=== PATIENT | male | born 1960 | race Hispanic/Latino ===

== ENCOUNTER 2016-09-27 15:41 | Outpatient (CLI) | payer MEDICAID ==
--- NOTE | 2016-09-28 13:41 | Vascular Lab Report ---
Left Lower Extremity Venous Duplex Study: Reason for Exam: Left leg swelling. Comments on the Right: A limited duplex study was done of the proximal veins of the right lower extremity. All veins visualized are freely compressible without evidence of internal echogenicity. Flow is spontaneous and phasic throughout. No evidence of acute or chronic thrombus is seen in any of the vessels visualized. Comments on the Left: All veins visualized are freely compressible without evidence of internal echogenicity. Flow is spontaneous and phasic throughout. No evidence of acute or chronic thrombus is seen in any of the vessels visualized. Soft tissue changes are consistent with edema. Incidental finding of a stent in the proximal left common femoral artery. Impression: No evidence of acute or chronic deep venous thrombosis in the left lower extremity.
== END 2016-09-27 15:42 | disposition home or self-care (01) ==
LOC: VAS 15:41
PROVIDERS: ATTEND Podiatrist Foot Surgery
DX: I82.402 Acute embolism and thrombosis of unspecified deep veins of left lower extremity (principal); R60.0 Localized edema

== ENCOUNTER 2017-07-11 14:14 | Emergency (ER) | payer MEDICAID ==
[2017-07-11 14:42] VITALS: BP 142/74
--- NOTE | 2017-07-11 15:09 | Emergency Department Report ---
Chief Complaint: Chest Pain Stated Complaint: CHEST PAIN/SOB/BACK PAIN Time Seen by Provider: 07/11/17 15:03 - HPI History of Present Illness: Patient with H/O asthma, HTN, DM and intermittent leg swelling presents to ED with c/o right sided CP, SOB, exertional dyspnea and productive cough for the last 3 days; has been using rescue inhaler and nebulizer treatments but they haven't helped; denies H/O COPD and fevers; 1/2 pack/day smoker - ROS Review of Systems: Negative except for those stated in HPI - Exam Vital Signs: Vital Signs 07/11/17 14:38 Temperature 98.3 F Pulse Rate 74 Respiratory 16 Rate Blood Pressure 142/74 O2 Sat by Pulse 93 Oximetry Physical Exam: RRR Mild wheezes bilaterally, decreased breath sounds MSE screening note: Focused history and physical exam performed. Due to findings the following was ordered: EKG, CXR, labs Patient to be seen by provider in Main ED ED Disposition for MSE Condition: Stable
[2017-07-11 15:21] LABS: Hematocrit 45.9 % (35.5-45.6); Hemoglobin 15.5 gm/dl (11.8-15.2); Mean Corpuscular HGB Conc 34 % (32-34); Mean Corpuscular Hemoglobin 32 pg (28-32); Mean Corpuscular Volume 95 fl (84-94); Platelet Count 194 K/mm3 (140-440); Red Blood Count 4.85 M/mm3 (3.65-5.03); Red Cell Distribution Width 14.5 % (13.2-15.2)
[2017-07-11 15:42] LABS: Alanine Aminotransferase 25 units/L (7-56); Albumin 3.9 g/dL (3.9-5); Albumin/Globulin Ratio 1.5 %; Alkaline Phosphatase 92 units/L (35-129); Anion Gap 19 mmol/L; BUN/Creatinine Ratio 20; Blood Urea Nitrogen 16 mg/dL (9-20); Calcium 8.9 mg/dL (8.4-10.2); Carbon Dioxide 20 mmol/L (22-30); Chloride 98.3 mmol/L (98-107); Glucose 113 mg/dL (75-100); Potassium 4.8 mmol/L (3.6-5.0); Sodium 132 mmol/L (137-145); Total Protein 6.5 g/dL (6.3-8.2)
--- NOTE | 2017-07-11 19:49 | XRay Report ---
FINAL REPORT EXAM: XR CHEST ROUTINE 2V HISTORY: right sided CP, SOB TECHNIQUE: upright single view chest PRIORS: Comparison is January 28, 2017 FINDINGS: Cardiac and mediastinal contours are unremarkable. No focal pulmonary infiltrate is identified. No pleural fluid collection seen. Pulmonary vasculature is unremarkable. No change from prior exam IMPRESSION: Negative single-view chest
== END 2017-07-11 20:25 | disposition left against medical advice (07) ==
LOC: ED 14:14
DX: Z53.21 Procedure and treatment not carried out due to patient leaving prior to being seen by health care provider (principal)
CPT/HCPCS: 36415; 71020; 80053; 83880; 84484; 85027; 93005; 93010

== ENCOUNTER 2017-10-31 14:24 | Emergency (ER) | payer MEDICAID ==
[2017-10-31 15:27] VITALS: BP 168/79
[2017-10-31] MEDS ORDERED: NORCO 5/325 PO ONE (20:02)
--- NOTE | 2017-10-31 20:07 | Emergency Department Report ---
HPI - General Chief Complaint: Extremity Injury, Lower Time Seen by Provider: 10/31/17 19:58 - HPI HPI: Pt is a 56 y o male who presents to ED for acute on chronic left foot pain that started 3 days ago. 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 Pt statestoday his pain was unbearable and he was out of his pain medication so he came in to the ED for this concern. He denies any recent trauma,injury to foot. He describes pain as neuropathic pain that is localized to his left foot and no where else. He denies loss of sensation, laceration or bleeding. ED Past Medical Hx - Past Medical History Hx Hypertension: Yes Hx Congestive Heart Failure: No Hx Diabetes: Yes Hx Deep Vein Thrombosis: Yes (LEFT LEG) Hx Arthritis: Yes Hx Kidney Stones: Yes Hx Asthma: No Hx COPD: Yes Additional medical history: Cholesterol - Surgical History Hx Cholecystectomy: Yes Additional Surgical History: bypass, stents, Hernia. 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 - Social History Smoking Status: Current Every Day Smoker Substance Use Type: None - Medications Home Medications: Home Medications Medication Instructions Recorded Confirmed Last Taken Type AtorvaSTATin [Lipitor] 40 mg PO QHS 01/31/17 01/31/17 Unknown History Gabapentin [Neurontin] 800 mg PO TID 01/31/17 01/31/17 Unknown History ALPRAZolam [Xanax TAB] 0.5 mg PO TID #10 tablet 02/03/17 Unknown Rx Aspirin EC [Aspirin Enteric Coated 81 mg PO QDAY #30 tablet. 02/03/17 Unknown Rx TAB] Carvedilol [Coreg] 3.125 mg PO BID #60 tablet 02/03/17 Unknown Rx Furosemide [Lasix TAB] 40 mg PO QDAY #30 tablet 02/03/17 Unknown Rx Lisinopril [Zestril TAB] 5 mg PO BID #30 tablet 02/03/17 Unknown Rx metFORMIN [Glucophage] 500 mg PO BID #60 tablet 02/03/17 Unknown Rx HYDROcodone/APAP 10-325 [[place] 1 each PO Q6H PRN #8 tablet 10/31/17 Unknown Rx 10-325 mg TAB] ED Review of Systems ROS: Stated complaint: SEVERE LEFT FOOT PAIN Other details as noted in HPI Constitutional: denies: chills, fever Eyes: denies: eye pain, eye discharge, vision change ENT: denies: ear pain, throat pain Respiratory: denies: cough, shortness of breath, wheezing Cardiovascular: denies: chest pain, palpitations Endocrine: no symptoms reported Gastrointestinal: denies: abdominal pain, nausea, diarrhea Genitourinary: denies: urgency, dysuria, frequency Musculoskeletal: arthralgia. denies: back pain, joint swelling Skin: denies: rash, lesions Neurological: denies: headache, weakness, paresthesias Psychiatric: denies: anxiety, depression Hematological/Lymphatic: denies: easy bleeding, easy bruising Physical Exam - Physical Exam Vital Signs: Vital Signs 10/31/17 15:25 Temperature 98.7 F Pulse Rate 67 Respiratory 18 Rate Blood Pressure 168/79 O2 Sat by Pulse 93 Oximetry Physical Exam: GENERAL: Alert and oriented x3, no apparent distress, Normal Gait, atraumatic. HEAD: Head is normocephalic and a-traumatic. EYES: Extra ocular muscles are intact. Pupils are equal, round, and reactive to light and accommodation. LUNGS: Symetrical with respiration, No wheezing, no rales or crackles, CTAB. HEART: S1, S2 present, regular rate and rhythm without murmur, no rubs, no gallops. Non tender to palpation EXTREMITIES/MUSCULOSKELETAL: No cyanosis, clubbing, rash, lesions or edema. Full ROM bilaterally. UE/LE Pulses 2+ bilaterally. LE and UE 5+ strength bilaterally, partially or left foot amputated, no erythema, nontender to palpation of the ankle or the foot, no calf tenderness or swelling NEUROLOGIC: The patient is cooperative with no focal neurologic deficits. Normal speech. Normal sensation in bilateral upper and lower extremities, No loss of sensation, SKIN: Warm and dry, No lesions, No ulceration or induration present. ED Course Vital Signs 10/31/17 15:25 Temperature 98.7 F Pulse Rate 67 Respiratory 18 Rate Blood Pressure 168/79 O2 Sat by Pulse 93 Oximetry ED Medical Decision Making - Medical Decision Making 56 y.o male presents with neuropathic left foot pain. ED course: Patient received one [place] tablet in the ED I discussed the patient to keep his appointment with Dr. Sams his neurologist for Tuesday I discussed the patient will give him a couple of pain medication to have sustained to his toes up with his neurologist. Patient is in no acute distress patient is able to ambulate with his walker with no issues. Critical care attestation.: If time is entered above; I have spent that time in minutes in the direct care of this critically ill patient, excluding procedure time. ED Disposition Clinical Impression: Chronic pain in left foot Neuropathy of foot Qualifiers: Laterality: left Qualified Code(s): G57.92 - Unspecified mononeuropathy of left lower limb Disposition: TO HOME OR SELFCARE Is pt being admited?: No Does the pt Need Aspirin: No Condition: Stable Instructions: Diabetic Neuropathy (ED), Arthralgia (ED) Additional Instructions: Follow and keep appt with your Neurologist Prescriptions: HYDROcodone/APAP 10-325 [[place] 10-325 mg TAB] 1 each PO Q6H PRN #8 tablet PRN Reason: Pain, Moderate (4-6) Referrals: PRIMARY CARE, [Primary Care Provider] - 3-5 Days RENETTA BRENNAN MD [Staff Physician] - 3-5 Days Forms: Work/School Release Form(ED) Time of Disposition: 20:06
== END 2017-10-31 21:10 | disposition home or self-care (01) ==
LOC: ED 14:24
DX: G57.92 Unspecified mononeuropathy of left lower limb (principal); G89.29 Other chronic pain; I10 Essential (primary) hypertension; E11.9 Type 2 diabetes mellitus without complications; J44.9 Chronic obstructive pulmonary disease, unspecified; M19.90 Unspecified osteoarthritis, unspecified site; F17.200 Nicotine dependence, unspecified, uncomplicated; Z86.718 Personal history of other venous thrombosis and embolism; Z87.442 Personal history of urinary calculi; Z88.6 Allergy status to analgesic agent; Z89.432 Acquired absence of left foot; Z90.49 Acquired absence of other specified parts of digestive tract; Z95.818 Presence of other cardiac implants and grafts
CPT/HCPCS: 99282

== ENCOUNTER 2018-02-23 12:19 | Emergency (ER) | payer MEDICAID ==
[2018-02-23 12:30] VITALS: BP 125/80
[2018-02-23 15:04] LABS: Bacteria,Urine 1+ /HPF (Negative); Bilirubin,Urine NEG (Negative); Blood,Urine NEG (Negative); Color,Urine Yellow (Yellow); Protein,Urine <15 mg/dL mg/dL (Negative); Urobilinogen,Urine < 2.0 mg/dL (<2.0)
[2018-02-23 15:07] LABS: WBC,Urine < 1.0 /HPF (0.0-6.0)
--- NOTE | 2018-02-23 15:22 | Emergency Department Report ---
ED General Adult HPI - General Chief complaint: Pain General Stated complaint: BACK PAIN Time Seen by Provider: 02/23/18 15:05 Source: patient Mode of arrival: Ambulatory Limitations: No Limitations - History of Present Illness Initial comments: Patient is a 57-year-old male who is complaining of low back pain. Patient states he woke up with neck pain 2 days ago as having difficulty moving. Patient states pain is 8 out of 10 in severity and is aching pain. Patient states some bilateral lower back along the beltline. Patient denies any urinary or bowel dysfunction there is no radiation of pain down his legs patient denies any abdominal pain at this time. - Related Data Home Medications Medication Instructions Recorded Confirmed Last Taken Gabapentin [Neurontin] 800 mg PO TID 01/31/17 11/15/17 11/14/17 Previous Rx's Medication Instructions Recorded Last Taken Type Aspirin EC [Aspirin Enteric Coated 81 mg PO QDAY #30 tablet. 02/03/17 Unknown Rx TAB] Carvedilol [Coreg] 3.125 mg PO BID #60 tablet 02/03/17 11/14/17 Rx Lisinopril [Zestril TAB] 5 mg PO BID #30 tablet 02/03/17 Unknown Rx ALBUTEROL Inhaler [ProAir HFA 2 puff IH QID PRN #1 inhalation 11/17/17 Unknown Rx Inhaler] ALPRAZolam [Xanax TAB] 0.5 mg PO TID PRN #10 tablet 11/17/17 Unknown Rx Acetaminophen [Acetaminophen TAB] 325 mg PO Q4H PRN #30 tablet 11/17/17 Unknown Rx AtorvaSTATin [Lipitor] 40 mg PO QHS #30 11/17/17 11/14/17 Rx Budesonide/Formoterol Fumarate 10.2 gm IH BID #1 hfa.aer.ad 11/17/17 Unknown Rx [Symbicort 160-4.5 Mcg Inhaler] Furosemide [Lasix TAB] 40 mg PO QDAY #30 tablet 11/17/17 Unknown Rx Ipratropium/Albuter (Nf) 2 puff IH BID #1 inha 11/17/17 Unknown Rx [Combivent (Nf)] Potassium Chloride [K-Dur] 20 meq PO BID #60 tablet 11/17/17 Unknown Rx metFORMIN [Glucophage] 500 mg PO BID tablet 11/17/17 Unknown Rx oxyCODONE /ACETAMINOPHEN [Percocet 1 tab PO Q6H PRN #15 tablet 11/17/17 Unknown Rx 5/325 mg] HYDROcodone/APAP 5-325 [[place] 1 each PO Q4HR PRN #10 tablet 02/23/18 Unknown Rx 5/325] methOCARBAMOL [Robaxin TAB] 500 mg PO Q6H PRN #15 tablet 02/23/18 Unknown Rx Allergies Allergy/AdvReac Type Severity Reaction Status Date / Time ketorolac tromethamine Allergy Vomiting Verified 01/31/17 05:38 [From Toradol] tramadol Allergy Vomiting Verified 01/31/17 05:38 ED Review of Systems ROS: Stated complaint: BACK PAIN Other details as noted in HPI Comment: All other systems reviewed and negative ED Past Medical Hx - Past Medical History Hx Hypertension: Yes Hx Congestive Heart Failure: No Hx Diabetes: Yes Hx Deep Vein Thrombosis: Yes (LEFT LEG) Hx Arthritis: Yes Hx Kidney Stones: Yes Hx Asthma: No Hx COPD: Yes Additional medical history: Cholesterol - Surgical History Hx Cholecystectomy: Yes Additional Surgical History: L. leg bypass, L. leg stents, Hernia. 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 - Social History Smoking Status: Current Every Day Smoker - Medications Home Medications: Home Medications Medication Instructions Recorded Confirmed Last Taken Type Gabapentin [Neurontin] 800 mg PO TID 01/31/17 11/15/17 11/14/17 History Aspirin EC [Aspirin Enteric Coated 81 mg PO QDAY #30 tablet. 02/03/17 Unknown Rx TAB] Carvedilol [Coreg] 3.125 mg PO BID #60 tablet 02/03/17 11/15/17 11/14/17 Rx Lisinopril [Zestril TAB] 5 mg PO BID #30 tablet 02/03/17 11/15/17 Unknown Rx ALBUTEROL Inhaler [ProAir HFA 2 puff IH QID PRN #1 inhalation 11/17/17 Unknown Rx Inhaler] ALPRAZolam [Xanax TAB] 0.5 mg PO TID PRN #10 tablet 11/17/17 Unknown Rx Acetaminophen [Acetaminophen TAB] 325 mg PO Q4H PRN #30 tablet 11/17/17 Unknown Rx AtorvaSTATin [Lipitor] 40 mg PO QHS #30 11/17/17 11/15/17 11/14/17 Rx Budesonide/Formoterol Fumarate 10.2 gm IH BID #1 hfa.aer.ad 11/17/17 Unknown Rx [Symbicort 160-4.5 Mcg Inhaler] Furosemide [Lasix TAB] 40 mg PO QDAY #30 tablet 11/17/17 Unknown Rx Ipratropium/Albuter (Nf) 2 puff IH BID #1 inha 11/17/17 Unknown Rx [Combivent (Nf)] Potassium Chloride [K-Dur] 20 meq PO BID #60 tablet 11/17/17 Unknown Rx metFORMIN [Glucophage] 500 mg PO BID tablet 11/17/17 Unknown Rx oxyCODONE /ACETAMINOPHEN [Percocet 1 tab PO Q6H PRN #15 tablet 11/17/17 Unknown Rx 5/325 mg] HYDROcodone/APAP 5-325 [[place] 1 each PO Q4HR PRN #10 tablet 02/23/18 Unknown Rx 5/325] methOCARBAMOL [Robaxin TAB] 500 mg PO Q6H PRN #15 tablet 02/23/18 Unknown Rx ED Physical Exam - General Limitations: No Limitations General appearance: alert, in no apparent distress - Head Head exam: Present: atraumatic, normocephalic - Eye Eye exam: Present: normal appearance - ENT ENT exam: Present: mucous membranes moist - Neck Neck exam: Present: normal inspection - Respiratory Respiratory exam: Present: normal lung sounds bilaterally. Absent: respiratory distress, wheezes, rales, rhonchi - Cardiovascular Cardiovascular Exam: Present: regular rate, normal rhythm. Absent: systolic murmur, diastolic murmur, rubs, gallop - GI/Abdominal GI/Abdominal exam: Present: soft, normal bowel sounds. Absent: distended, tenderness, guarding, rebound - Rectal Rectal exam: Present: deferred - Extremities Exam Extremities exam: Present: normal inspection - Back Exam Back exam: Present: normal inspection - Neurological Exam Neurological exam: Present: alert, oriented X3 - Psychiatric Psychiatric exam: Present: normal affect, normal mood - Skin Skin exam: Present: warm, dry, intact, normal color. Absent: rash ED Course Vital Signs 02/23/18 12:28 Temperature 99.0 F Pulse Rate 80 Respiratory 16 Rate Blood Pressure 125/80 O2 Sat by Pulse 95 Oximetry ED Medical Decision Making - Medical Decision Making Patient will be given meds for symptomatic relief and will be discharged home Critical care attestation.: If time is entered above; I have spent that time in minutes in the direct care of this critically ill patient, excluding procedure time. ED Disposition Clinical Impression: Back strain Qualifiers: Encounter type: initial encounter Qualified Code(s): S39.012A - Strain of muscle, fascia and tendon of lower back, initial encounter Disposition: DC- TO HOME OR SELFCARE Is pt being admited?: No Does the pt Need Aspirin: No Condition: Stable Instructions: Low Back Strain (ED) Referrals: PRIMARY CARE, [Primary Care Provider] - 3-5 Days
== END 2018-02-23 15:31 | disposition home or self-care (01) ==
LOC: ED 12:19
DX: S39.012A Strain of muscle, fascia and tendon of lower back, initial encounter (principal); I10 Essential (primary) hypertension; E11.9 Type 2 diabetes mellitus without complications; M19.90 Unspecified osteoarthritis, unspecified site; J44.9 Chronic obstructive pulmonary disease, unspecified; F17.200 Nicotine dependence, unspecified, uncomplicated; Z86.718 Personal history of other venous thrombosis and embolism; Z79.82 Long term (current) use of aspirin; Z88.6 Allergy status to analgesic agent; X58.XXXA Exposure to other specified factors, initial encounter; Y93.89 Activity, other specified; Y92.89 Other specified places as the place of occurrence of the external cause; Y99.8 Other external cause status
CPT/HCPCS: 81001; 99283

== ENCOUNTER 2018-08-02 15:56 | Inpatient (IN) | payer MEDICAID ==
[2018-08-02 16:40] LABS: Basophils # (Auto) 0.1 K/mm3 (0.0-0.1); Basophils % (Auto) 0.7 % (0.0-1.8); Eosinophils # (Auto) 0.1 K/mm3 (0.0-0.4); Eosinophils % (Auto) 1.3 % (0.0-4.3); Hematocrit 45.8 % (35.5-45.6); Hemoglobin 15.3 gm/dl (11.8-15.2); Lymphocytes # (Auto) 0.5 K/mm3 (1.2-5.4); Lymphocytes % (Auto) 6.7 % (13.4-35.0); Mean Corpuscular HGB Conc 33 % (32-34); Mean Corpuscular Volume 95 fl (84-94); Monocytes # (Auto) 0.7 K/mm3 (0.0-0.8); Monocytes % (Auto) 8.8 % (0.0-7.3); Platelet Count 179 K/mm3 (140-440); Red Blood Count 4.83 M/mm3 (3.65-5.03); Red Cell Distribution Width 14.2 % (13.2-15.2)
--- NOTE | 2018-08-02 16:45 | Emergency Department Report ---
ED Shortness of Breath HPI - General Chief Complaint: Dyspnea/Respdistress Stated Complaint: PAIN FROM WAIST DOWN/BOTH LEGS/ALEXYS Time Seen by Provider: 08/02/18 16:28 Source: patient Mode of arrival: Ambulatory Limitations: No Limitations - History of Present Illness Initial Comments: 57-year-old male presents to ED with complaint of shortness of breath and bilateral lower extremity swelling. Patient states the swelling began 6 days ago. Then began having shortness of breath and chest pressure 4 days ago. Patient has history of COPD, states only uses 2 L of O2 at night as needed. Patient denies any cardiac history, denies history of CHF. Patient denies fever, reports cough productive of white sputum. Patient states swelling present on the lower abdominal wall as well. Reports tightness to bilateral lower extremities. MD Complaint: shortness of breath, chest pain -: days(s) (6) Severity: moderate Consistency: constant Improves With: rest Worsens With: exertion Known History Of: COPD Associated Symptoms: chest pain, cough, sputum production, lower extremity pain, lower abdominal swelling - Related Data Home Oxygen Therapy: Yes Home Oxygen Amount: other (as needed) Home Medications Medication Instructions Recorded Confirmed Last Taken Gabapentin [Neurontin] 800 mg PO TID 01/31/17 11/15/17 11/14/17 Previous Rx's Medication Instructions Recorded Last Taken Type Aspirin EC [Aspirin Enteric Coated 81 mg PO QDAY #30 tablet. 02/03/17 Unknown Rx TAB] Carvedilol [Coreg] 3.125 mg PO BID #60 tablet 02/03/17 11/14/17 Rx Lisinopril [Zestril TAB] 5 mg PO BID #30 tablet 02/03/17 Unknown Rx ALBUTEROL Inhaler (OR & NICU) 2 puff IH QID PRN #1 inhalation 11/17/17 Unknown Rx [ProAir HFA Inhaler] ALPRAZolam [Xanax TAB] 0.5 mg PO TID PRN #10 tablet 11/17/17 Unknown Rx Acetaminophen [Acetaminophen TAB] 325 mg PO Q4H PRN #30 tablet 11/17/17 Unknown Rx AtorvaSTATin [Lipitor] 40 mg PO QHS #30 11/17/17 11/14/17 Rx Budesonide/Formoterol Fumarate 10.2 gm IH BID #1 hfa.aer.ad 11/17/17 Unknown Rx [Symbicort 160-4.5 Mcg Inhaler] Furosemide [Lasix TAB] 40 mg PO QDAY #30 tablet 11/17/17 Unknown Rx Ipratropium/Albuter (Nf) 2 puff IH BID #1 inha 11/17/17 Unknown Rx [Combivent (Nf)] Potassium Chloride [K-Dur] 20 meq PO BID #60 tablet 11/17/17 Unknown Rx metFORMIN [Glucophage] 500 mg PO BID tablet 11/17/17 Unknown Rx oxyCODONE /ACETAMINOPHEN [Percocet 1 tab PO Q6H PRN #15 tablet 11/17/17 Unknown Rx 5/325 mg] methOCARBAMOL [Robaxin TAB] 500 mg PO Q6H PRN #15 tablet 02/23/18 Unknown Rx Allergies Allergy/AdvReac Type Severity Reaction Status Date / Time ketorolac tromethamine Allergy Vomiting Verified 01/31/17 05:38 [From Toradol] tramadol Allergy Vomiting Verified 01/31/17 05:38 ED Review of Systems ROS: Stated complaint: PAIN FROM WAIST DOWN/BOTH LEGS/ALEXYS Other details as noted in HPI Comment: All other systems reviewed and negative Constitutional: denies: chills, fever Respiratory: cough, shortness of breath Cardiovascular: chest pain Gastrointestinal: denies: nausea, vomiting Musculoskeletal: other (reports bilat leg swelling) ED Past Medical Hx - Past Medical History Hx Hypertension: Yes Hx Congestive Heart Failure: No Hx Diabetes: Yes Hx Deep Vein Thrombosis: Yes (LEFT LEG) Hx Arthritis: Yes Hx Kidney Stones: Yes Hx Asthma: No Hx COPD: Yes Additional medical history: Cholesterol - Surgical History Hx Cholecystectomy: Yes Additional Surgical History: L. leg bypass, L. leg stents, Hernia. 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 - Social History Smoking Status: Current Every Day Smoker Substance Use Type: None - Medications Home Medications: Home Medications Medication Instructions Recorded Confirmed Last Taken Type Gabapentin [Neurontin] 800 mg PO TID 01/31/17 11/15/17 11/14/17 History Aspirin EC [Aspirin Enteric Coated 81 mg PO QDAY #30 tablet. 02/03/17 11/15/17 Unknown Rx TAB] Carvedilol [Coreg] 3.125 mg PO BID #60 tablet 02/03/17 11/15/17 11/14/17 Rx Lisinopril [Zestril TAB] 5 mg PO BID #30 tablet 02/03/17 11/15/17 Unknown Rx ALBUTEROL Inhaler (OR & NICU) 2 puff IH QID PRN #1 inhalation 11/17/17 Unknown Rx [ProAir HFA Inhaler] ALPRAZolam [Xanax TAB] 0.5 mg PO TID PRN #10 tablet 11/17/17 Unknown Rx Acetaminophen [Acetaminophen TAB] 325 mg PO Q4H PRN #30 tablet 11/17/17 Unknown Rx AtorvaSTATin [Lipitor] 40 mg PO QHS #30 11/17/17 11/15/17 11/14/17 Rx Budesonide/Formoterol Fumarate 10.2 gm IH BID #1 hfa.aer.ad 11/17/17 Unknown Rx [Symbicort 160-4.5 Mcg Inhaler] Furosemide [Lasix TAB] 40 mg PO QDAY #30 tablet 11/17/17 Unknown Rx Ipratropium/Albuter (Nf) 2 puff IH BID #1 inha 11/17/17 Unknown Rx [Combivent (Nf)] Potassium Chloride [K-Dur] 20 meq PO BID #60 tablet 11/17/17 Unknown Rx metFORMIN [Glucophage] 500 mg PO BID tablet 11/17/17 Unknown Rx oxyCODONE /ACETAMINOPHEN [Percocet 1 tab PO Q6H PRN #15 tablet 11/17/17 Unknown Rx 5/325 mg] methOCARBAMOL [Robaxin TAB] 500 mg PO Q6H PRN #15 tablet 02/23/18 Unknown Rx ED Physical Exam - General Limitations: No Limitations General appearance: alert - Head Head exam: Present: atraumatic, normocephalic - Eye Eye exam: Present: periorbital swelling (left eye, pt states this is his baseline) - ENT ENT exam: Present: mucous membranes moist - Neck Neck exam: Present: normal inspection - Respiratory Respiratory exam: Present: rales, decreased breath sounds, other (tachypneic) - Cardiovascular Cardiovascular Exam: Present: regular rate, normal rhythm - GI/Abdominal GI/Abdominal exam: Present: soft, distended, other (pitting edema present to lower abdominal wall) - Extremities Exam Extremities exam: Present: other (2+ pitting edema bilateral lower extremities). Absent: calf tenderness - Neurological Exam Neurological exam: Present: alert, oriented X3 - Psychiatric Psychiatric exam: Present: normal affect, normal mood - Skin Skin exam: Present: warm, dry, intact, normal color ED Course Vital Signs 08/02/18 08/02/18 08/02/18 16:03 16:15 16:24 Temperature 98.7 F Pulse Rate 79 Respiratory 28 H Rate Blood Pressure 134/74 O2 Sat by Pulse 73 L 94 94 Oximetry 08/02/18 08/02/18 08/02/18 16:30 16:45 17:00 Temperature Pulse Rate 78 75 Respiratory 10 L 12 Rate Blood Pressure 128/78 119/76 O2 Sat by Pulse 91 92 91 Oximetry 08/02/18 08/02/18 17:15 17:21 Temperature Pulse Rate 79 Respiratory 14 Rate Blood Pressure 117/70 O2 Sat by Pulse 89 92 Oximetry - Reevaluation(s) Reevaluation #1: 08/02/18 17:07 Review of pt's last admission reveals that pt has hx of CHF, EF 45%, w/ cor pulmonale. In October 2017, pt was d/c'd home w/ Lasix. Pt states he is not currently taking Lasix. States he thinks his may have taken him off this me dication. ED Medical Decision Making - Lab Data Result diagrams: 08/02/18 16:25 08/02/18 16:25 - EKG Data -: EKG Interpreted by Vt EKG shows normal: sinus rhythm, intervals, QRS complexes Rate: normal - EKG Data Interpretation: other (R axis deviation;T wave inversions V2, V3) - Radiology Data Radiology results: report reviewed, image reviewed - Medical Decision Making 57-year-old male with history of COPD, and unbeknownst to patient, CHF. Patient has been off of his Lasix for unknown period of time. Patient presented to the ED with bilateral lower extremity pitting edema, edema to the lower abdominal wall, and shortness of breath. Patient was admitted to 9 months ago for CHF exacerbation with same presentation of lower extremity and lower abdominal swelling, shortness of breath. EKG shows no acute changes. Shows right axis deviation which was present on EKG done 9 months ago. Troponin negative. Radiologist read chest x-ray as infiltrate or atelectasis in right lung base. Likely not an infiltrate as the patient has normal temperature, normal WBCs. Pt's symptoms likely due to CHF exacerbation given his physical exam, his elevated BNP at 4,912, and the fact that the patient has not been taking his Lasix for he believes has been approx 4 months. O2 sats 91% on 3L O2, initial O2 was 78% on RA. Patient given Lasix 80 mg IV. Will admit to hospitalist, Dr Marrufo. - Differential Diagnosis CHF,pneumonia, PE Critical Care Time: Yes Critical care time in (mins) excluding proc time.: 35 Critical care attestation.: If time is entered above; I have spent that time in minutes in the direct care of this critically ill patient, excluding procedure time. Critical Care Time: 35 minutes ED Disposition Clinical Impression: Hypoxia, CHF exacerbation, Pulmonary edema Disposition: OP ADMIT IP TO THIS HOSP Is pt being admited?: Yes Condition: Stable Time of Disposition: 17:54
--- NOTE | 2018-08-02 16:54 | XRay Report ---
FINAL REPORT EXAM: XR CHEST 1V AP HISTORY: Shortness of breath COMPARISON: Chest radiograph performed on 11/14/2017 TECHNIQUE: Two frontal views of the chest FINDINGS: The cardiomediastinal silhouette is normal in appearance. There is hazy and streaky opacity at the right lung base. The left lung is clear. No pleural effusion or pneumothorax. No acute bony or soft tissue abnormality. IMPRESSION: Hazy and streaky opacity at the right lung base that may reflect atelectasis or infiltrate.
[2018-08-02 17:02] LABS: BUN/Creatinine Ratio 12; Blood Urea Nitrogen 12 mg/dL (9-20); Calcium 9.4 mg/dL (8.4-10.2); Hemolysis Index 7
[2018-08-02 17:09] LABS: INR 0.78 (0.87-1.13); Partial Thromboplastin Time 27.5 Sec. (24.2-36.6)
[2018-08-02] MEDS ORDERED: LASIX IV ONE (17:49)
[2018-08-02] MEDS ORDERED: MORPHINE IV ONE (17:49)
[2018-08-02] MEDS ORDERED: MORPHINE ONE ×2 (17:51→19:23)
[2018-08-02] MEDS ORDERED: TYLENOL PO PRN (22:17)
[2018-08-02] MEDS ORDERED: IBUPROFEN PO PRN (22:17)
[2018-08-02] MEDS ORDERED: ZOFRAN IV PRN (22:17)
[2018-08-02] MEDS ORDERED: SODIUM CHLORIDE FLUSH SYRINGE 10 ML IV PRN (22:17)
[2018-08-02] MEDS: K-DUR PO SCH (22:56)
[2018-08-02] MEDS: DILAUDID IV PRN (22:56)
[2018-08-03] MEDS: XANAX PO PRN ×2 (00:15→13:42)
[2018-08-03] MEDS: DILAUDID IV PRN ×4 (02:59→20:39)
[2018-08-03 05:22] LABS: Basophils # (Auto) 0.1 K/mm3 (0.0-0.1); Basophils % (Auto) 0.8 % (0.0-1.8); Eosinophils # (Auto) 0.2 K/mm3 (0.0-0.4); Eosinophils % (Auto) 2.8 % (0.0-4.3); Hematocrit 45.5 % (35.5-45.6); Lymphocytes # (Auto) 0.9 K/mm3 (1.2-5.4); Lymphocytes % (Auto) 12.3 % (13.4-35.0); Mean Corpuscular HGB Conc 33 % (32-34); Mean Corpuscular Volume 95 fl (84-94); Monocytes # (Auto) 0.8 K/mm3 (0.0-0.8); Monocytes % (Auto) 10.9 % (0.0-7.3); Platelet Count 166 K/mm3 (140-440); Red Cell Distribution Width 13.8 % (13.2-15.2)
[2018-08-03] MEDS: LASIX IV SCH ×2 (05:31→18:23)
[2018-08-03 05:49] LABS: Alanine Aminotransferase 22 units/L (7-56); Albumin 3.9 g/dL (3.9-5); BUN/Creatinine Ratio 14; Blood Urea Nitrogen 10 mg/dL (9-20); Hemolysis Index 11
--- NOTE | 2018-08-03 06:56 | Event Note ---
Date: 08/02/18 See Dictated H/p in reports COPD exacerbation Ac Resp failure CHF exacerbation sec to Pul HTN
--- NOTE | 2018-08-03 07:52 | History and Physical Report ---
CHIEF COMPLAINT: Increasing shortness of breath and bilateral leg swelling for 6 days. HISTORY OF PRESENT ILLNESS: A 57-year-old male presents with increasing shortness of breath and bilateral leg swelling for 6 days. Shortness of breath on minimal exertion. Orthopnea present. The patient also has history of COPD and is on 2 liters of oxygen at home. The patient has a left facial palsy from . PAST MEDICAL HISTORY: Significant for hypertension, COPD, generalized anxiety disorder, hyperlipidemia and type 2 diabetes. CURRENT MEDICATIONS: On the chart. PAST SURGICAL HISTORY: Cholecystectomy and left leg bypass and left leg stents. Partial left foot amputation. SOCIAL HISTORY: Smokes a pack a day. FAMILY HISTORY: Hypertension. REVIEW OF SYSTEMS: Significant for shortness of breath on minimal exertion and orthopnea. PHYSICAL EXAMINATION: GENERAL: On examination, elderly middle-aged male, cooperative during examination. VITAL SIGNS: Blood pressure is 159/91, temperature is 97.6, pulse is 87, respirations 18. HEENT: Unremarkable. Pupils equal and reactive. NECK: Supple, no lymphadenopathy, no thyromegaly. LUNGS: Clear to auscultation and percussion. Good air entry. CARDIOVASCULAR: S1, S2 heard. No gallop, no murmur, no rub. Apical impulse in left fifth intercostal space and midclavicular line. ABDOMEN: Soft and benign. No hepatosplenomegaly. No guarding, no rigidity. Hernial orifices are normal. EXTREMITIES: Good pedal pulses. Some pedal edema present. 2+ pedal edema present. CENTRAL NERVOUS SYSTEM: Alert and oriented x 4, nonfocal exam. SKIN: Normal. LABORATORY DATA: Significant for white count of 7800, H and H is 15.3 and 45.8, platelet count is 179,000. Sodium is 134, glucose is 126. Hemoglobin A1c 7.2. BNP is 4912. Chest x-ray shows hazy and streaky opacity of the right lung base that may reflect atelectasis or infiltrate. EKG shows sinus rhythm and a heart rate of 80 per minute, low voltage with right axis deviation, probably right ventricular hypertrophy. ASSESSMENT AND PLAN: 1. Chronic obstructive pulmonary disease exacerbation. The patient initiated on DuoNebs, low dose Solu-Medrol and IV antibiotics. 2. Congestive heart failure exacerbation with pulmonary hypertension secondary to chronic obstructive pulmonary disease. IV Lasix and echocardiogram ordered. Cardiology consult ordered. 3. Hyperlipidemia. Continue statins. 4. Type 2 diabetes. Continue metformin and coverage. 5. Peripheral neuropathy. Continue gabapentin. 6. Generalized anxiety disorder. Continue Xanax. In summary, the patient has COPD exacerbation and possible infiltrate resulting in a pulmonary hypertension and right heart failure. Echocardiogram ordered. JOB# [id number] VSM/[id number]
[2018-08-03] MEDS ORDERED: DUONEB *Not for PRN Use IH SCH (08:00)
[2018-08-03] MEDS: DUONEB *Not for PRN Use IH SCH ×4 (09:12→20:57)
[2018-08-03] MEDS: NEURONTIN PO SCH ×3 (09:16→22:10)
[2018-08-03] MEDS: GLUCOPHAGE PO SCH ×2 (09:16→16:37)
[2018-08-03] MEDS: PEPCID PO SCH ×2 (09:16→22:10)
[2018-08-03] MEDS: K-DUR PO SCH ×2 (09:16→22:10)
[2018-08-03] MEDS: SOLU-Medrol IV SCH ×3 (09:17→22:11)
[2018-08-03] MEDS: LEVAQUIN 750MG/150ML 750 MG/150 ML BAG IV SCH (09:18)
[2018-08-03] MEDS: SODIUM CHLORIDE FLUSH SYRINGE 10 ML IV SCH ×2 (09:21→22:11)
--- NOTE | 2018-08-03 12:18 | Consultation ---
Addendum entered and electronically signed by MARGIE LARSEN MD 08/03/18 12:44: This patient's major problem as detailed on prior consultations is severe COPD, chronic cor pulmonale all exacerbated continued tobacco abuse. There is no additional major cardiac issue, recommend that you engage a pulmonary consultation for further management of his shortness of breath, hypoxemia, pulmonary hypertension and cor pulmonale. Original Note: History of Present Illness Consult date: 08/03/18 Consult reason: congestive heart failure History of present illness: This is a 57 year old man with a long standing history of COPD on home oxygen who continues to smoke. His lastest cardiac workup was done just over a year ago. A persantine thallium stress test was negative. An echocardiogram at that time demonstrated a preserved left ventricular systolic function with ejection fraction 50%. He was noted to have dilatation of the right heart chambers and moderate pulmonary hypertension, consistent with his severe COPD. Co-morbidities includes hypertension, diabetes and peripheral vascular disease. Patient presented to this hospital with complaints of shortness of breath and noted hypoxic with oxygen sats of 73% on arrival. In addition, he complained of generalized pain and lower extremity edema. A cardiac consultation was requested for CHF. A chest x-ray done in the emergency department reports a suspected right lower lung atelectasis versus infiltrate. There is no evidence of interstitial edema. A 12 lead ECG is sinus rhythm with low voltage. Medications and Allergies Allergies Allergy/AdvReac Type Severity Reaction Status Date / Time ketorolac tromethamine Allergy Vomiting Verified 01/31/17 05:38 [From Toradol] tramadol Allergy Vomiting Verified 01/31/17 05:38 Home Medications Medication Instructions Recorded Confirmed Last Taken Type ALPRAZolam [Xanax TAB] 0.5 mg PO TID PRN #10 tablet 11/17/17 08/02/18 Unknown Rx AtorvaSTATin [Lipitor] 40 mg PO QHS #30 11/17/17 08/02/18 11/14/17 Rx metFORMIN [Glucophage] 500 mg PO BID tablet 11/17/17 08/02/18 Unknown Rx Gabapentin [Neurontin] 800 mg PO TID 08/02/18 08/02/18 Unknown History Active Meds: Active Medications Acetaminophen (Tylenol) 650 mg PO Q4H PRN PRN Reason: Pain MILD(1-3)/Fever >100.5/MORROW Albuterol/Ipratropium (Duoneb *Not For Prn Use*) 1 ampul IH QIDRT [facility] Last Admin: 08/03/18 09:12 Dose: 1 ampul Documented by: Alprazolam (Xanax) 0.5 mg PO TID PRN PRN Reason: Anxiety Last Admin: 08/03/18 00:15 Dose: 0.5 mg Documented by: Atorvastatin Calcium (Lipitor) 40 mg PO QHS [facility] Famotidine (Pepcid) 20 mg PO BID [facility] Last Admin: 08/03/18 09:16 Dose: 20 mg Documented by: Furosemide (Lasix) 40 mg IV 0600,1800 [facility] Last Admin: 08/03/18 05:31 Dose: 40 mg Documented by: Gabapentin (Neurontin) 800 mg PO TID [facility] Last Admin: 08/03/18 09:16 Dose: 800 mg Documented by: Hydromorphone HCl (Dilaudid) 0.5 mg IV Q3H PRN PRN Reason: Pain , Severe (7-10) Last Admin: 08/03/18 09:18 Dose: 0.5 mg Documented by: Levofloxacin/Dextrose (Levaquin 750mg/150ml) 750 mg in 150 mls @ 100 mls/hr IV Q24HR [facility]; Protocol Last Admin: 08/03/18 09:18 Dose: 100 mls/hr Documented by: Ibuprofen (Motrin) 600 mg PO Q6H PRN PRN Reason: Pain, Mild (1-3) Metformin HCl (Glucophage) 500 mg PO BIDDIAB [facility] Last Admin: 08/03/18 09:16 Dose: 500 mg Documented by: Methylprednisolone Sodium Succinate (Solu-Medrol) 60 mg IV Q8HR [facility] Last Admin: 08/03/18 09:17 Dose: 60 mg Documented by: Ondansetron HCl (Zofran) 4 mg IV Q8H PRN PRN Reason: Nausea And Vomiting Potassium Chloride (K-Dur) 20 meq PO Q12HR [facility] Last Admin: 08/03/18 09:16 Dose: 20 meq Documented by: Sodium Chloride (Sodium Chloride Flush Syringe 10 Ml) 10 ml IV BID [facility] Last Admin: 08/03/18 09:21 Dose: 10 ml Documented by: Sodium Chloride (Sodium Chloride Flush Syringe 10 Ml) 10 ml IV PRN PRN PRN Reason: LINE FLUSH Physical Examination Vital Signs Temp Pulse Resp BP Pulse Ox 98.7 F 79 28 H 134/74 73 L 08/02/18 16:03 08/02/18 16:03 08/02/18 16:03 08/02/18 16:03 08/02/18 16:03 General appearance: no acute distress HEENT: Positive: PERRL Cardiac: Positive: Reg Rate and Rhythm Lungs: Positive: Decreased Breath Sounds Neuro: Positive: Grossly Intact Extremities: Present: edema Results 08/03/18 05:00 08/03/18 05:00 Cardiac Enzymes 08/03/18 Range/Units 05:00 AST 22 (5-40) units/L Coagulation 08/02/18 Range/Units 16:44 PT 11.3 L (12.2-14.9) Sec. INR 0.78 L (0.87-1.13) APTT 27.5 (24.2-36.6) Sec. CBC 08/02/18 08/03/18 Range/Units 16:25 05:00 WBC 7.8 7.5 (4.5-11.0) K/mm3 RBC 4.83 4.80 (3.65-5.03) M/mm3 Hgb 15.3 H 15.0 (11.8-15.2) gm/dl Hct 45.8 H 45.5 (35.5-45.6) % Plt Count 179 166 (140-440) K/mm3 Lymph # 0.5 L 0.9 L (1.2-5.4) K/mm3 [place] # 0.7 0.8 (0.0-0.8) K/mm3 Eos # 0.1 0.2 (0.0-0.4) K/mm3 Baso # 0.1 0.1 (0.0-0.1) K/mm3 Comprehensive Metabolic Panel 08/02/18 08/03/18 Range/Units 16:25 05:00 Sodium 134 L 139 (137-145) mmol/L Potassium 4.4 4.0 (3.6-5.0) mmol/L Chloride 97.8 L 100.1 (98-107) mmol/L Carbon Dioxide 24 27 (22-30) mmol/L BUN 12 10 (9-20) mg/dL Creatinine 1.0 0.7 L (0.8-1.5) mg/dL Glucose 126 H 90 (75-100) mg/dL Calcium 9.4 9.0 (8.4-10.2) mg/dL AST 22 (5-40) units/L ALT 22 (7-56) units/L Alkaline Phosphatase 87 (35-129) units/L Total Protein 6.4 (6.3-8.2) g/dL Albumin 3.9 (3.9-5) g/dL Assessment and Plan Cor pulmonale COPD on home oxygen HTN Diabetes Hx of PVD Tobacco abuse 01/2017: thallium stress test showed a fixed inferior defect without ischemia. An echocardiogram this admission shows evidence of a severe pulmonary hypertension, LVEF 40-45%.
--- NOTE | 2018-08-03 16:51 | Progress Note ---
Assessment and Plan Assessment and plan: Acute on chronic respiratory failure COPD exacerbation Cor pulmonale RLL pneumonia Acute on Chronic combined CHF Morbid obesity Tobacco dependence - Patient is on IV Lasix, DuoNeb, Solu-Medrol, antibiotic, CPAP daily at bedtime - Cardiology consult appreciated - Pulmonary consult placed as a management according to Hyperlipidemia; continue statin DVT prophylaxis - On heparin DisPosition - Continue inpatient care History Interval history: Patient was seen and evaluated this morning, patient is still complaining some shortness of breath. Patient had leg swelling. Patient said he cut on his smoking. Hospitalist Physical - Physical exam Narrative exam: Not in cardiopulmonary distress. The patient is obese. Vital signs as documented. Head exam is unremarkable. No scleral icterus . Neck is without jugular venous distension, thyromegaly, or carotid bruits. Lungs wheezing and decrease air entry on bibasilar area. Cardiac exam reveals regular rate and Rhythm. Abdominal exam reveals normal bowel sounds, no masses, obese abdomen. Extremities +2 pedal and pretibial edema PRESS CUTTER: Alert and oriented 3. - Constitutional Vitals: Temp Pulse Resp BP Pulse Ox 97.9 F 87 19 147/84 87 08/03/18 15:54 08/03/18 16:06 08/03/18 16:06 08/03/18 15:54 08/03/18 15:54 General appearance: Present: no acute distress Results - Labs CBC & Chem 7: 08/03/18 05:00 08/03/18 05:00 Labs: Laboratory Last Values WBC 7.5 K/mm3 (4.5-11.0) 08/03/18 05:00 RBC 4.80 M/mm3 (3.65-5.03) 08/03/18 05:00 Hgb 15.0 gm/dl (11.8-15.2) 08/03/18 05:00 Hct 45.5 % (35.5-45.6) 08/03/18 05:00 MCV 95 fl (84-94) H 08/03/18 05:00 MCH 31 pg (28-32) 08/03/18 05:00 MCHC 33 % (32-34) 08/03/18 05:00 RDW 13.8 % (13.2-15.2) 08/03/18 05:00 Plt Count 166 K/mm3 (140-440) 08/03/18 05:00 Lymph % (Auto) 12.3 % (13.4-35.0) L 08/03/18 05:00 [place] % (Auto) 10.9 % (0.0-7.3) H 08/03/18 05:00 Eos % (Auto) 2.8 % (0.0-4.3) 08/03/18 05:00 Baso % (Auto) 0.8 % (0.0-1.8) 08/03/18 05:00 Lymph # 0.9 K/mm3 (1.2-5.4) L 08/03/18 05:00 [place] # 0.8 K/mm3 (0.0-0.8) 08/03/18 05:00 Eos # 0.2 K/mm3 (0.0-0.4) 08/03/18 05:00 Baso # 0.1 K/mm3 (0.0-0.1) 08/03/18 05:00 Seg Neutrophils % 73.2 % (40.0-70.0) H 08/03/18 05:00 Seg Neutrophils # 5.5 K/mm3 (1.8-7.7) 08/03/18 05:00 PT 11.3 Sec. (12.2-14.9) L 08/02/18 16:44 INR 0.78 (0.87-1.13) L 08/02/18 16:44 APTT 27.5 Sec. (24.2-36.6) 08/02/18 16:44 Sodium 139 mmol/L (137-145) 08/03/18 05:00 Potassium 4.0 mmol/L (3.6-5.0) 08/03/18 05:00 Chloride 100.1 mmol/L (98-107) 08/03/18 05:00 Carbon Dioxide 27 mmol/L (22-30) 08/03/18 05:00 Anion Gap 16 mmol/L 08/03/18 05:00 BUN 10 mg/dL (9-20) 08/03/18 05:00 Creatinine 0.7 mg/dL (0.8-1.5) L 08/03/18 05:00 Estimated GFR > 60 ml/min 08/03/18 05:00 BUN/Creatinine Ratio 14 % 08/03/18 05:00 Glucose 90 mg/dL (75-100) 08/03/18 05:00 Hemoglobin A1c 7.3 % (4-6) H 08/02/18 Unknown Calcium 9.0 mg/dL (8.4-10.2) 08/03/18 05:00 Total Bilirubin 0.40 mg/dL (0.1-1.2) 08/03/18 05:00 AST 22 units/L (5-40) 08/03/18 05:00 ALT 22 units/L (7-56) 08/03/18 05:00 Alkaline Phosphatase 87 units/L (35-129) 08/03/18 05:00 Troponin T < 0.010 ng/mL (0.00-0.029) 08/02/18 16:44 NT-Pro-B Natriuret Pep 4912 pg/mL (0-900) H 08/02/18 16:44 Total Protein 6.4 g/dL (6.3-8.2) 08/03/18 05:00 Albumin 3.9 g/dL (3.9-5) 08/03/18 05:00 Albumin/Globulin Ratio 1.6 % 08/03/18 05:00
[2018-08-03] MEDS ORDERED: LASIX IV SCH (18:00)
[2018-08-03] MEDS: HEPARIN SUB-Q SCH (22:11)
[2018-08-04] MEDS ORDERED: MAGNESIUM SULFATE 1 GM in NACL 0.9% 50 ML IV ONE (02:00)
[2018-08-04] MEDS: DILAUDID IV PRN ×4 (04:07→21:07)
[2018-08-04 05:52] LABS: Hematocrit 44.7 % (35.5-45.6); Mean Corpuscular HGB Conc 34 % (32-34); Mean Corpuscular Volume 94 fl (84-94); Platelet Count 158 K/mm3 (140-440); Red Blood Count 4.75 M/mm3 (3.65-5.03); Red Cell Distribution Width 14.1 % (13.2-15.2)
[2018-08-04] MEDS: SOLU-Medrol IV SCH ×4 (06:14→23:40)
[2018-08-04] MEDS: LASIX IV SCH ×2 (06:14→17:49)
[2018-08-04 06:19] LABS: BUN/Creatinine Ratio 20; Blood Urea Nitrogen 14 mg/dL (9-20); Calcium 9.1 mg/dL (8.4-10.2); Hemolysis Index 17
[2018-08-04 07:09] LABS: Band Neutrophils # (Manual) 0.1 K/mm3; Eosinophils % (Manual) 0 % (0.0-4.3); Total Cells Counted 100
[2018-08-04 07:10] LABS: Platelet Estimate Cons; RBC Morphology Normal
[2018-08-04] MEDS: NEURONTIN PO SCH ×3 (08:37→21:08)
[2018-08-04] MEDS: GLUCOPHAGE PO SCH ×2 (08:37→17:52)
[2018-08-04] MEDS: DUONEB *Not for PRN Use IH SCH ×4 (08:38→21:55)
[2018-08-04] MEDS ORDERED: D50W (25GM) Syringe IV PRN (08:39)
[2018-08-04] MEDS: K-DUR PO SCH ×2 (09:59→21:08)
[2018-08-04] MEDS: PEPCID PO SCH ×2 (09:59→21:08)
[2018-08-04] MEDS: HEPARIN SUB-Q SCH ×2 (10:00→21:09)
[2018-08-04] MEDS: XANAX PO PRN ×2 (10:10→21:18)
[2018-08-04] MEDS: SODIUM CHLORIDE FLUSH SYRINGE 10 ML IV SCH ×2 (10:43→21:08)
[2018-08-04] MEDS: LEVAQUIN 750MG/150ML 750 MG/150 ML BAG IV SCH (10:43)
--- NOTE | 2018-08-04 11:01 | Progress Note ---
Addendum entered and electronically signed by MARGIE LARSEN MD 08/04/18 11:01: Cardiac status stable and asymptomatic. Defer to pulmonary for further assessme nt and management of COPD and cor pulmonale. Original Note: Assessment and Plan Cor pulmonale COPD on home oxygen HTN Diabetes Hx of PVD Tobacco abuse 01/2017: thallium stress test showed a fixed inferior defect without ischemia. An echocardiogram this admission shows evidence of a severe pulmonary hypertension, LVEF 40-45%. Recommend: Pulmonary consultation for further management of his shortness of breath, hypoxemia, pulmonary hypertension and cor pulmonale. Otherwise, conservative cardiac management. We will follow intermittently. Subjective Date of service: 08/04/18 Interval history: Patient reports his breathing is better today. He denies chest pain. Objective Vital Signs Temp Pulse Pulse Resp Resp BP Pulse Ox 08/04/18 08:51 91 H 20 08/04/18 08:42 90 08/04/18 08:39 94 H 20 08/04/18 03:56 97.8 F 89 20 155/83 87 08/03/18 23:24 98.3 F 90 20 137/80 93 08/03/18 21:13 88 18 08/03/18 20:58 86 18 95 08/03/18 20:39 18 08/03/18 20:24 88 08/03/18 19:27 98.7 F 88 18 148/84 91 08/03/18 16:06 87 19 08/03/18 15:54 97.9 F 93 H 18 147/84 87 08/03/18 13:21 89 19 08/03/18 11:36 98.5 F 18 137/76 - Physical Examination General: No Apparent Distress HEENT: Positive: PERRL Cardiac: Positive: Reg Rate and Rhythm Lungs: Positive: Decreased Breath Sounds Neuro: Positive: Grossly Intact Extremities: Present: +1 Edema - Labs and Meds CBC 08/04/18 Range/Units 05:18 WBC 5.9 (4.5-11.0) K/mm3 RBC 4.75 (3.65-5.03) M/mm3 Hgb 15.0 (11.8-15.2) gm/dl Hct 44.7 (35.5-45.6) % Plt Count 158 (140-440) K/mm3 Comprehensive Metabolic Panel 08/04/18 Range/Units 05:18 Sodium 134 L (137-145) mmol/L Potassium 4.8 (3.6-5.0) mmol/L Chloride 91.9 L (98-107) mmol/L Carbon Dioxide 28 (22-30) mmol/L BUN 14 (9-20) mg/dL Creatinine 0.7 L (0.8-1.5) mg/dL Glucose 243 H (75-100) mg/dL Calcium 9.1 (8.4-10.2) mg/dL
[2018-08-04] MEDS: HumaLOG SUB-Q SCH ×3 (13:39→22:25)
--- NOTE | 2018-08-04 15:53 | Progress Note ---
Assessment and Plan Assessment and plan: Acute on chronic respiratory failure COPD exacerbation Cor pulmonale RLL pneumonia Acute on Chronic combined CHF Morbid obesity Tobacco dependence - Patient is on IV Lasix, DuoNeb, Solu-Medrol, antibiotic, CPAP daily at bedtime - Cardiology consult appreciated - Pulmonary consulted Hyperlipidemia; continue statin DVT prophylaxis - On heparin DisPosition - Continue inpatient care - History Interval history: Patient was seen and evaluated this morning, patient is still complaining some shortness of breath. Patient has leg swelling. Patient said he cut on his smoking. Hospitalist Physical - Physical exam Narrative exam: Not in cardiopulmonary distress. The patient is obese. Vital signs as documented. Head exam is unremarkable. No scleral icterus . Neck is without jugular venous distension, thyromegaly, or carotid bruits. Lungs wheezing and decrease air entry on bibasilar area. Cardiac exam reveals regular rate and Rhythm. Abdominal exam reveals normal bowel sounds, no masses, obese abdomen. Extremities +2 pedal and pretibial edema PROGRAM AND RESEARCH COORDINATOR: Alert and oriented 3. - Constitutional Vitals: Temp Pulse Resp BP Pulse Ox 97.8 F 89 18 155/83 90 08/04/18 03:56 08/04/18 13:22 08/04/18 13:22 08/04/18 03:56 08/04/18 08:42 General appearance: Present: no acute distress Results - Labs CBC & Chem 7: 08/04/18 05:18 08/04/18 05:18 Labs: Laboratory Last Values WBC 5.9 K/mm3 (4.5-11.0) 08/04/18 05:18 RBC 4.75 M/mm3 (3.65-5.03) 08/04/18 05:18 Hgb 15.0 gm/dl (11.8-15.2) 08/04/18 05:18 Hct 44.7 % (35.5-45.6) 08/04/18 05:18 MCV 94 fl (84-94) 08/04/18 05:18 MCH 32 pg (28-32) 08/04/18 05:18 MCHC 34 % (32-34) 08/04/18 05:18 RDW 14.1 % (13.2-15.2) 08/04/18 05:18 Plt Count 158 K/mm3 (140-440) 08/04/18 05:18 Lymph % (Auto) 12.3 % (13.4-35.0) L 08/03/18 05:00 [place] % (Auto) 10.9 % (0.0-7.3) H 08/03/18 05:00 Eos % (Auto) 2.8 % (0.0-4.3) 08/03/18 05:00 Baso % (Auto) 0.8 % (0.0-1.8) 08/03/18 05:00 Lymph # 0.9 K/mm3 (1.2-5.4) L 08/03/18 05:00 [place] # 0.8 K/mm3 (0.0-0.8) 08/03/18 05:00 Eos # 0.2 K/mm3 (0.0-0.4) 08/03/18 05:00 Baso # 0.1 K/mm3 (0.0-0.1) 08/03/18 05:00 Add Manual Diff Complete 08/04/18 05:18 Total Counted 100 08/04/18 05:18 Seg Neutrophils % 73.2 % (40.0-70.0) H 08/03/18 05:00 Seg Neuts % (Manual) 93.0 % (40.0-70.0) H 08/04/18 05:18 Band Neutrophils % 1.0 % 08/04/18 05:18 Lymphocytes % (Manual) 1.0 % (13.4-35.0) L 08/04/18 05:18 Reactive Lymphs % (Man) 0 % 08/04/18 05:18 Monocytes % (Manual) 4.0 % (0.0-7.3) 08/04/18 05:18 Eosinophils % (Manual) 0 % (0.0-4.3) 08/04/18 05:18 Basophils % (Manual) 1.0 % (0.0-1.8) 08/04/18 05:18 Metamyelocytes % 0 % 08/04/18 05:18 Myelocytes % 0 % 08/04/18 05:18 Promyelocytes % 0 % 08/04/18 05:18 Blast Cells % 0 % 08/04/18 05:18 Nucleated RBC % Not Reportable 08/04/18 05:18 Seg Neutrophils # 5.5 K/mm3 (1.8-7.7) 08/03/18 05:00 Seg Neutrophils # Man 5.5 K/mm3 (1.8-7.7) 08/04/18 05:18 Band Neutrophils # 0.1 K/mm3 08/04/18 05:18 Lymphocytes # (Manual) 0.1 K/mm3 (1.2-5.4) L 08/04/18 05:18 Abs React Lymphs (Man) 0.0 K/mm3 08/04/18 05:18 Monocytes # (Manual) 0.2 K/mm3 (0.0-0.8) 08/04/18 05:18 Eosinophils # (Manual) 0.0 K/mm3 (0.0-0.4) 08/04/18 05:18 Basophils # (Manual) 0.1 K/mm3 (0.0-0.1) 08/04/18 05:18 Metamyelocytes # 0.0 K/mm3 08/04/18 05:18 Myelocytes # 0.0 K/mm3 08/04/18 05:18 Promyelocytes # 0.0 K/mm3 08/04/18 05:18 Blast Cells # 0.0 K/mm3 08/04/18 05:18 WBC Morphology Not Reportable 08/04/18 05:18 Hypersegmented Neuts Not Reportable 08/04/18 05:18 Hyposegmented Neuts Not Reportable 08/04/18 05:18 Hypogranular Neuts Not Reportable 08/04/18 05:18 Smudge Cells Not Reportable 08/04/18 05:18 Toxic Granulation Not Reportable 08/04/18 05:18 Toxic Vacuolation Not Reportable 08/04/18 05:18 Dohle Bodies Not Reportable 08/04/18 05:18 Pelger-Huet Anomaly Not Reportable 08/04/18 05:18 Amanda Rods Not Reportable 08/04/18 05:18 Platelet Estimate Cons 08/04/18 05:18 Clumped Platelets Not Reportable 08/04/18 05:18 Plt Clumps, EDTA Not Reportable 08/04/18 05:18 Large Platelets Not Reportable 08/04/18 05:18 Giant Platelets Not Reportable 08/04/18 05:18 Platelet Satelliting Not Reportable 08/04/18 05:18 Plt Morphology Comment Not Reportable 08/04/18 05:18 RBC Morphology Normal 08/04/18 05:18 Dimorphic RBCs Not Reportable 08/04/18 05:18 Polychromasia Not Reportable 08/04/18 05:18 Hypochromasia Not Reportable 08/04/18 05:18 Poikilocytosis Not Reportable 08/04/18 05:18 Anisocytosis Not Reportable 08/04/18 05:18 Microcytosis Not Reportable 08/04/18 05:18 Macrocytosis Not Reportable 08/04/18 05:18 Spherocytes Not Reportable 08/04/18 05:18 Pappenheimer Bodies Not Reportable 08/04/18 05:18 Sickle Cells Not Reportable 08/04/18 05:18 Target Cells Not Reportable 08/04/18 05:18 Tear Drop Cells Not Reportable 08/04/18 05:18 Ovalocytes Not Reportable 08/04/18 05:18 Helmet Cells Not Reportable 08/04/18 05:18 [place] Bodies Not Reportable 08/04/18 05:18 [place] Rings Not Reportable 08/04/18 05:18 [place] Cells Not Reportable 08/04/18 05:18 Bite Cells Not Reportable 08/04/18 05:18 Crenated Cell Not Reportable 08/04/18 05:18 Elliptocytes Not Reportable 08/04/18 05:18 Acanthocytes (Spur) Not Reportable 08/04/18 05:18 Rouleaux Not Reportable 08/04/18 05:18 Hemoglobin C Crystals Not Reportable 08/04/18 05:18 Schistocytes Not Reportable 08/04/18 05:18 Malaria parasites Not Reportable 08/04/18 05:18 Elias Bodies Not Reportable 08/04/18 05:18 Hem Pathologist Commnt No 08/04/18 05:18 PT 11.3 Sec. (12.2-14.9) L 08/02/18 16:44 INR 0.78 (0.87-1.13) L 08/02/18 16:44 APTT 27.5 Sec. (24.2-36.6) 08/02/18 16:44 Sodium 134 mmol/L (137-145) L 08/04/18 05:18 Potassium 4.8 mmol/L (3.6-5.0) 08/04/18 05:18 Chloride 91.9 mmol/L (98-107) L 08/04/18 05:18 Carbon Dioxide 28 mmol/L (22-30) 08/04/18 05:18 Anion Gap 19 mmol/L 08/04/18 05:18 BUN 14 mg/dL (9-20) 08/04/18 05:18 Creatinine 0.7 mg/dL (0.8-1.5) L 08/04/18 05:18 Estimated GFR > 60 ml/min 08/04/18 05:18 BUN/Creatinine Ratio 20 % 08/04/18 05:18 Glucose 243 mg/dL (75-100) H 08/04/18 05:18 POC Glucose 202 (70-105) H 08/04/18 12:51 Hemoglobin A1c 7.3 % (4-6) H 08/02/18 Unknown Calcium 9.1 mg/dL (8.4-10.2) 08/04/18 05:18 Magnesium 1.50 mg/dL (1.7-2.3) L 08/04/18 00:17 Total Bilirubin 0.40 mg/dL (0.1-1.2) 08/03/18 05:00 AST 22 units/L (5-40) 08/03/18 05:00 ALT 22 units/L (7-56) 08/03/18 05:00 Alkaline Phosphatase 87 units/L (35-129) 08/03/18 05:00 Troponin T < 0.010 ng/mL (0.00-0.029) 08/02/18 16:44 NT-Pro-B Natriuret Pep 4912 pg/mL (0-900) H 08/02/18 16:44 Total Protein 6.4 g/dL (6.3-8.2) 08/03/18 05:00 Albumin 3.9 g/dL (3.9-5) 08/03/18 05:00 Albumin/Globulin Ratio 1.6 % 08/03/18 05:00
--- NOTE | 2018-08-04 16:09 | Consultation ---
History of Present Illness Consult date: 08/04/18 Requesting physician: CARLYLE KINNEY Reason for consult: dyspnea History of present illness: 57 y/o male, appears older than stated age, admitted with shortness of breath. Has been admitted several times before and only seen by cardiology. He does suffer from systolic heart failure but also has severe pulmonary hypertension. Per cardiology they have optimized his systolic heart failure and feel the remaining of his dyspnea is related to pulmonary hypertension and lung disease. Per patient he has smoked for the last 25 years. He states that he has never been diagnosed with any lung disease. He has never seen a lung physician nor had breathing tests. Several screening questions for sleep apnea were also a sked but patient not able to answer them. He does suffer from chronic respiratory failure and wears nocturnal O2. Remainder of his review is positive for daily wheezing and persistent shortness of breath. Past History Past Medical History: diabetes, heart failure, hyperlipidemia Past Surgical History: Other (partial left foot amputation) Social history: smoking Medications and Allergies Allergies Allergy/AdvReac Type Severity Reaction Status Date / Time ketorolac tromethamine Allergy Vomiting Verified 01/31/17 05:38 [From Toradol] tramadol Allergy Vomiting Verified 01/31/17 05:38 Home Medications Medication Instructions Recorded Confirmed Last Taken Type ALPRAZolam [Xanax TAB] 0.5 mg PO TID PRN #10 tablet 11/17/17 08/02/18 Unknown Rx AtorvaSTATin [Lipitor] 40 mg PO QHS #30 11/17/17 08/02/18 11/14/17 Rx metFORMIN [Glucophage] 500 mg PO BID tablet 11/17/17 08/02/18 Unknown Rx Gabapentin [Neurontin] 800 mg PO TID 08/02/18 08/02/18 Unknown History Active Meds: Active Medications Acetaminophen (Tylenol) 650 mg PO Q4H PRN PRN Reason: Pain MILD(1-3)/Fever >100.5/MORROW Albuterol/Ipratropium (Duoneb *Not For Prn Use*) 1 ampul QIDRT [facility] Last Admin: 08/04/18 16:05 Dose: Not Given Documented by: Alprazolam (Xanax) 0.5 mg PO TID PRN PRN Reason: Anxiety Last Admin: 08/04/18 10:10 Dose: 0.5 mg Documented by: Arformoterol Tartrate (Brovana Nebu) 15 mcg IH Q12HRT [facility] Atorvastatin Calcium (Lipitor) 40 mg PO QHS [facility] Last Admin: 08/03/18 22:11 Dose: 40 mg Documented by: Budesonide (Pulmicort) 0.5 mg IH Q12HRT [facility] Dextrose (D50w (25gm) Syringe) 50 ml IV PRN PRN PRN Reason: Hypoglycemia Famotidine (Pepcid) 20 mg PO BID [facility] Last Admin: 08/04/18 09:59 Dose: 20 mg Documented by: Furosemide (Lasix) 40 mg IV 0600,1800 [facility] Last Admin: 08/04/18 06:14 Dose: 40 mg Documented by: Gabapentin (Neurontin) 800 mg PO TID [facility] Last Admin: 08/04/18 14:32 Dose: 800 mg Documented by: Heparin Sodium (Porcine) (Heparin) 5,000 unit SUB-Q Q12HR [facility] Last Admin: 08/04/18 10:00 Dose: 5,000 unit Documented by: Hydromorphone HCl (Dilaudid) 0.5 mg IV Q3H PRN PRN Reason: Pain , Severe (7-10) Last Admin: 08/04/18 08:37 Dose: 0.5 mg Documented by: Levofloxacin/Dextrose (Levaquin 750mg/150ml) 750 mg in 150 mls @ 100 mls/hr IV Q24HR [facility]; Protocol Last Admin: 08/04/18 10:43 Dose: 100 mls/hr Documented by: Ibuprofen (Motrin) 600 mg PO Q6H PRN PRN Reason: Pain, Mild (1-3) Last Admin: 08/04/18 00:30 Dose: 600 mg Documented by: Insulin Human Lispro (Humalog) 0 unit SUB-Q ACHS [facility]; Protocol Last Admin: 08/04/18 13:39 Dose: 3 unit Documented by: Metformin HCl (Glucophage) 500 mg PO BIDDIAB [facility] Last Admin: 08/04/18 08:37 Dose: 500 mg Documented by: Methylprednisolone Sodium Succinate (Solu-Medrol) 60 mg IV Q6HR [facility] Ondansetron HCl (Zofran) 4 mg IV Q8H PRN PRN Reason: Nausea And Vomiting Potassium Chloride (K-Dur) 20 meq PO Q12HR [facility] Last Admin: 08/04/18 09:59 Dose: 20 meq Documented by: Sodium Chloride (Sodium Chloride Flush Syringe 10 Ml) 10 ml IV BID RAJAT Last Admin: 08/04/18 10:43 Dose: 10 ml Documented by: Sodium Chloride (Sodium Chloride Flush Syringe 10 Ml) 10 ml IV PRN PRN PRN Reason: LINE FLUSH Last Admin: 08/04/18 09:59 Dose: 10 ml Documented by: Review of Systems All systems: negative Physical Examination Vital signs: Vital Signs Temp Pulse Resp BP Pulse Ox 98.7 F 79 28 H 134/74 73 L 08/02/18 16:03 08/02/18 16:03 08/02/18 16:03 08/02/18 16:03 08/02/18 16:03 General appearance: no acute distress, alert, other (appear older than stated age) Eyes: icteric ENT: oropharynx moist, other (very poor dentition) Neck: supple, other (large in cirumference) Effort: normal, other (barrell chested) Ascultation: Bilateral: wheezes Percussion: Bilateral: not dull Tactile fremitus: Bilateral: normal Cardiovascular: regular rate and rhythm Gastrointestinal: normoactive bowel sounds, soft, non-tender Extremities: no edema, cyanosis normal mental status mood appropriate Results - Laboratory Findings CBC and BMP: 08/04/18 05:18 08/04/18 05:18 PT/INR, D-dimer PT 11.3 Sec. (12.2-14.9) L 08/02/18 16:44 INR 0.78 (0.87-1.13) L 08/02/18 16:44 Abnormal lab findings: Abnormal Labs 08/02/18 08/02/18 08/02/18 16:25 16:25 16:44 Hgb 15.3 H Hct 45.8 H MCV 95 H Lymph % (Auto) 6.7 L Luce % (Auto) 8.8 H Lymph # 0.5 L Seg Neutrophils % 82.5 H Seg Neuts % (Manual) Lymphocytes % (Manual) Lymphocytes # (Manual) PT 11.3 L INR 0.78 L Sodium 134 L Chloride 97.8 L Creatinine Glucose 126 H POC Glucose Hemoglobin A1c Magnesium NT-Pro-B Natriuret Pep 08/02/18 08/02/18 08/03/18 16:44 Unknown 05:00 Hgb Hct MCV 95 H Lymph % (Auto) 12.3 L Luce % (Auto) 10.9 H Lymph # 0.9 L Seg Neutrophils % 73.2 H Seg Neuts % (Manual) Lymphocytes % (Manual) Lymphocytes # (Manual) PT INR Sodium Chloride Creatinine Glucose POC Glucose Hemoglobin A1c 7.3 H Magnesium NT-Pro-B Natriuret Pep 4912 H 08/03/18 08/03/18 08/04/18 05:00 21:46 00:17 Hgb Hct MCV Lymph % (Auto) Luce % (Auto) Lymph # Seg Neutrophils % Seg Neuts % (Manual) Lymphocytes % (Manual) Lymphocytes # (Manual) PT INR Sodium Chloride Creatinine 0.7 L Glucose POC Glucose 207 H Hemoglobin A1c Magnesium 1.50 L NT-Pro-B Natriuret Pep 08/04/18 08/04/18 08/04/18 05:18 05:18 06:32 Hgb Hct MCV Lymph % (Auto) Luce % (Auto) Lymph # Seg Neutrophils % Seg Neuts % (Manual) 93.0 H Lymphocytes % (Manual) 1.0 L Lymphocytes # (Manual) 0.1 L PT INR Sodium 134 L Chloride 91.9 L Creatinine 0.7 L Glucose 243 H POC Glucose 216 H Hemoglobin A1c Magnesium NT-Pro-B Natriuret Pep 08/04/18 08/04/18 06:48 12:51 Hgb Hct MCV Lymph % (Auto) Luce % (Auto) Lymph # Seg Neutrophils % Seg Neuts % (Manual) Lymphocytes % (Manual) Lymphocytes # (Manual) PT INR Sodium Chloride Creatinine Glucose POC Glucose 220 H 202 H Hemoglobin A1c Magnesium NT-Pro-B Natriuret Pep - Diagnostic Findings Chest x-ray: image reviewed (Cardiomegaly with pulmonary vascular congestion) Assessment and Plan 57 y/o male with systolic heart failure and severe pulmonary hypertension, also tobacco abuse and possibly underlying COPD 1. Pulm HTN- likely multifactorial, including left sided heart failure, chronic hypoxemia, and maybe untreated sleep apnea. Continue lasix therapy. could benefit from right heart cath to truly evaluate right sided pressures but that could be done as an outpatient 2. Dyspnea-Also multifactorial but related to Pulm HTN, potential COPD, and potential untreated DUANE. Will increase steroid therapy to 60q6. Will also add pulmicort and brovana. May consider starting revatio TID. As stated above, could benefit from right heart cath 3. Tobacco Abuse-counseled on smoking cessation. Interested in drug therapy. Will start BID Wellbutrin 4. Will also obtain noncontrast HRCT to evaluate for ILD, doubt present but need to rule out. Thank you for this consult. Will continue to follow along with you.
--- NOTE | 2018-08-04 18:03 | Cat Scan Report ---
FINAL REPORT EXAM: CT CHEST WO CON HISTORY: Concern for ILD TECHNIQUE: CT examination of the chest without IV contrast. High-resolution/bone windows only PRIORS: None. FINDINGS: Coronary artery calcification. Normal cardiac size without pericardial effusion. Normal caliber thoracic aorta with moderate calcified atherosclerotic plaque. Normal-appearing esopha christoph. No hilar mass or mediastinal adenopathy. Degenerative change in the regional skeleton. No evidence of acute fracture. No pneumothorax or pleural effusion. Nonspecific small region of focal subpleural consolidation is noted in the medial left lower lobe bas e. Prominent interstitial and reticular markings are noted in both lower lobes. Slight prominence with h oneycomb formation is also present in the basilar posterior aspect of the lingula and right middle lo be. Slight honeycomb formation in the left lower lobe base adjacent to the diaphragm, and medial righ t lower lobe base in the azygoesophageal recess region. No definite evidence of bronchiectasis or bronchial wall thickening. The visualized airways are diffu sely patent. No definite lung mass or pulmonary nodule.. Bilateral pulmonary emphysema. IMPRESSION: Coronary artery calcification without cardiomegaly Small focal subpleural consolidation in medial left lower lobe base may be scarring. Differential inc ludes atelectasis or small focus of pneumonia Prominent interstitial and reticular markings noted in both lower lobes. Slight subpleural honeycomb formation in the base of both lower lobes, right middle lobe, and lingula may correspond with clinical suspicion of ILD Bilateral pulmonary emphysema
[2018-08-04] MEDS: BROVANA NEBU IH SCH (21:54)
[2018-08-04] MEDS: PULMICORT IH SCH (21:54)
[2018-08-05] MEDS: DILAUDID IV PRN ×6 (00:44→20:52)
[2018-08-05] MEDS: LASIX IV SCH ×2 (06:50→17:49)
[2018-08-05] MEDS: SOLU-Medrol IV SCH ×4 (06:51→23:31)
[2018-08-05] MEDS: NEURONTIN PO SCH ×3 (08:26→23:54)
[2018-08-05] MEDS: GLUCOPHAGE PO SCH ×2 (08:26→17:12)
[2018-08-05] MEDS: HumaLOG SUB-Q SCH ×3 (08:27→16:30)
[2018-08-05] MEDS: PULMICORT IH SCH ×2 (08:35→20:24)
[2018-08-05] MEDS: BROVANA NEBU IH SCH ×2 (08:35→20:24)
[2018-08-05] MEDS: SODIUM CHLORIDE FLUSH SYRINGE 10 ML IV SCH (10:00)
[2018-08-05] MEDS: LEVAQUIN 750MG/150ML 750 MG/150 ML BAG IV SCH (10:19)
[2018-08-05] MEDS: K-DUR PO SCH ×2 (10:19→23:33)
[2018-08-05] MEDS: PEPCID PO SCH ×2 (10:19→23:32)
[2018-08-05] MEDS: HEPARIN SUB-Q SCH ×2 (10:20→23:33)
[2018-08-05] MEDS: XANAX PO PRN ×2 (10:20→23:32)
--- NOTE | 2018-08-05 11:23 | Progress Note ---
Assessment and Plan 1. Acute exacerbation off chronic obstructive pulmonary disease 2. Essential hypertension 3. Dilated cardiomyopathy with biventricular failure severe passive pulmonary hypertension left ventricular ejection fraction 40-45% 4. Type 2 diabetes mellitus 5. Peripheral vascular disease Plan. Cardiac-alvarado stable continue conservative management. Subjective Date of service: 08/05/18 Interval history: Dyspnea cough no cardiac symptoms. Objective Vital Signs Temp Pulse Pulse Pulse Pulse Resp Resp 08/05/18 10:00 96 H 20 08/05/18 07:25 97.6 F 96 H 20 08/05/18 04:35 20 08/05/18 04:05 22 08/05/18 04:00 97.5 F L 94 H 19 08/05/18 01:14 20 08/05/18 00:44 20 08/04/18 23:45 95 H 08/04/18 23:44 97.8 F 96 H 20 08/04/18 22:15 90 08/04/18 21:59 08/04/18 21:55 95 H 08/04/18 21:37 20 08/04/18 21:25 08/04/18 21:20 22 08/04/18 21:07 20 08/04/18 20:22 22 08/04/18 20:21 20 08/04/18 20:12 88 08/04/18 20:11 98.1 F 88 18 08/04/18 19:33 91 H 08/04/18 13:22 89 18 08/04/18 13:01 89 18 08/04/18 12:00 98.2 F 86 19 Resp Resp BP BP Pulse Ox 08/05/18 10:00 92 08/05/18 07:25 119/76 78 L 08/05/18 04:35 08/05/18 04:05 08/05/18 04:00 106/70 62 L 08/05/18 01:14 08/05/18 00:44 08/04/18 23:45 91 08/04/18 23:44 131/78 90 08/04/18 22:15 21 08/04/18 21:59 94 08/04/18 21:55 16 08/04/18 21:37 08/04/18 21:25 22 08/04/18 21:20 96 08/04/18 21:07 08/04/18 20:22 08/04/18 20:21 08/04/18 20:12 91 08/04/18 20:11 140/65 89 08/04/18 19:33 08/04/18 13:22 08/04/18 13:01 08/04/18 12:00 153/83 - Physical Examination General: No Apparent Distress HEENT: Positive: PERRL Neck: Positive: neck supple, trachea midline. Negative: JVD/HJR Cardiac: Positive: Reg Rate and Rhythm, Regular Rate, S1/S2, S3, PMI, Laterally Displaced Lungs: Positive: Decreased Breath Sounds, Wheezes, Rhonchi Neuro: Positive: Grossly Intact Abdomen: Positive: Unremarkable, Soft Extremities: Present: +1 Edema, Other (left mid metatarsal amputation) - Telemetry EKG Rhythm: Sinus Rhythm
[2018-08-05] MEDS: DUONEB *Not for PRN Use IH SCH ×4 (14:04→20:24)
--- NOTE | 2018-08-05 14:29 | Progress Note ---
Assessment and Plan 57 y/o male with systolic heart failure and severe pulmonary hypertension, also tobacco abuse and possibly underlying COPD 1. Pulm HTN- likely multifactorial, including left sided heart failure, chronic hypoxemia, and maybe untreated sleep apnea. Continue lasix therapy. could benefit from right heart cath to truly evaluate right sided pressures but that could be done as an outpatient 2. Dyspnea-Patient with pretty substantial ILD on HRCT. Most likely IPF. Will definitely need RHC at some point and the begin to screen for ILD treatment. 3. Tobacco Abuse-counseled on smoking cessation. Interested in drug therapy. Will start BID Wellbutrin 4. Continue High dose steroids for now, patient may be at his new baseline. Will add revatio TID Thank you for this consult. Will continue to follow along with you. Subjective Date of service: 08/05/18 Interval history: CT of chest consistent with ILD, specifically IPF given the patter of honeycombing. Objective Vital Signs - 12hr 08/05/18 08/05/18 08/05/18 04:00 04:05 04:35 Temperature 97.5 F L Pulse Rate 94 H Pulse Rate [ Anterior Bilateral Throughout] Pulse Rate [ From Monitor] Pulse Rate [ Posterior Bilateral Throughout] Respiratory 19 22 20 Rate Respiratory Rate [Anterior Bilateral Throughout] Respiratory Rate [Posterior Bilateral Throughout] Blood Pressure 106/70 Blood Pressure [Left] O2 Sat by Pulse 62 L Oximetry 08/05/18 08/05/18 08/05/18 07:25 08:35 09:46 Temperature 97.6 F Pulse Rate 96 H Pulse Rate [ Anterior Bilateral Throughout] Pulse Rate [ From Monitor] Pulse Rate [ 56 L 57 L Posterior Bilateral Throughout] Respiratory 20 Rate Respiratory Rate [Anterior Bilateral Throughout] Respiratory 20 18 Rate [Posterior Bilateral Throughout] Blood Pressure Blood Pressure 119/76 [Left] O2 Sat by Pulse 78 L Oximetry 08/05/18 08/05/18 08/05/18 10:00 12:00 12:54 Temperature 97.5 F L Pulse Rate 78 Pulse Rate [ Anterior Bilateral Throughout] Pulse Rate [ 96 H From Monitor] Pulse Rate [ Posterior Bilateral Throughout] Respiratory 20 20 Rate Respiratory Rate [Anterior Bilateral Throughout] Respiratory Rate [Posterior Bilateral Throughout] Blood Pressure Blood Pressure 153/93 [Left] O2 Sat by Pulse 92 97 95 Oximetry 08/05/18 08/05/18 08/05/18 14:01 14:12 14:16 Temperature Pulse Rate Pulse Rate [ 96 H Anterior Bilateral Throughout] Pulse Rate [ From Monitor] Pulse Rate [ 85 Posterior Bilateral Throughout] Respiratory Rate Respiratory 18 Rate [Anterior Bilateral Throughout] Respiratory Rate [Posterior Bilateral Throughout] Blood Pressure Blood Pressure [Left] O2 Sat by Pulse 98 Oximetry Constitutional: no acute distress, alert, other (appear older than stated age) Eyes: icteric ENT: oropharynx moist, other (very poor dentition) Neck: supple, other (large in cirumference) Effort: normal, other (barrell chested) Ascultation: Bilateral: wheezes Percussion: Bilateral: not dull Tactile fremitus: Bilateral: normal Cardiovascular: regular rate and rhythm Gastrointestinal: normoactive bowel sounds, soft, non-tender Extremities: no edema, cyanosis Neurologic: normal mental status Psychiatric: mood appropriate CBC and BMP: 08/04/18 05:18 08/04/18 05:18 ABG, PT/INR, D-dimer: PT/INR, D-dimer PT 11.3 Sec. (12.2-14.9) L 08/02/18 16:44 INR 0.78 (0.87-1.13) L 08/02/18 16:44 Abnormal lab findings: Abnormal Labs 08/02/18 08/02/18 08/02/18 16:25 16:25 16:44 Hgb 15.3 H Hct 45.8 H MCV 95 H Lymph % (Auto) 6.7 L Hartley % (Auto) 8.8 H Lymph # 0.5 L Seg Neutrophils % 82.5 H Seg Neuts % (Manual) Lymphocytes % (Manual) Lymphocytes # (Manual) PT 11.3 L INR 0.78 L Sodium 134 L Chloride 97.8 L Creatinine Glucose 126 H POC Glucose Hemoglobin A1c Magnesium NT-Pro-B Natriuret Pep 08/02/18 08/02/18 08/03/18 16:44 Unknown 05:00 Hgb Hct MCV 95 H Lymph % (Auto) 12.3 L Hartley % (Auto) 10.9 H Lymph # 0.9 L Seg Neutrophils % 73.2 H Seg Neuts % (Manual) Lymphocytes % (Manual) Lymphocytes # (Manual) PT INR Sodium Chloride Creatinine Glucose POC Glucose Hemoglobin A1c 7.3 H Magnesium NT-Pro-B Natriuret Pep 4912 H 08/03/18 08/03/1819 05:00 21:46 00:17 Hgb Hct MCV Lymph % (Auto) Hartley % (Auto) Lymph # Seg Neutrophils % Seg Neuts % (Manual) Lymphocytes % (Manual) Lymphocytes # (Manual) PT INR Sodium Chloride Creatinine 0.7 L Glucose POC Glucose 207 H Hemoglobin A1c Magnesium 1.50 L NT-Pro-B Natriuret Pep 08/04/18 08/04/18 08/04/18 05:18 05:18 06:32 Hgb Hct MCV Lymph % (Auto) Hartley % (Auto) Lymph # Seg Neutrophils % Seg Neuts % (Manual) 93.0 H Lymphocytes % (Manual) 1.0 L Lymphocytes # (Manual) 0.1 L PT INR Sodium 134 L Chloride 91.9 L Creatinine 0.7 L Glucose 243 H POC Glucose 216 H Hemoglobin A1c Magnesium NT-Pro-B Natriuret Pep 08/04/18 08/04/18 08/04/18 06:48 12:51 21:23 Hgb Hct MCV Lymph % (Auto) Hartley % (Auto) Lymph # Seg Neutrophils % Seg Neuts % (Manual) Lymphocytes % (Manual) Lymphocytes # (Manual) PT INR Sodium Chloride Creatinine Glucose POC Glucose 220 H 202 H 278 H Hemoglobin A1c Magnesium NT-Pro-B Natriuret Pep 08/05/18 08/05/18 06:33 10:40 Hgb Hct MCV Lymph % (Auto) Hartley % (Auto) Lymph # Seg Neutrophils % Seg Neuts % (Manual) Lymphocytes % (Manual) Lymphocytes # (Manual) PT INR Sodium Chloride Creatinine Glucose POC Glucose 266 H 233 H Hemoglobin A1c Magnesium NT-Pro-B Natriuret Pep
--- NOTE | 2018-08-05 16:45 | Progress Note ---
Assessment and Plan Assessment and plan: Acute on chronic respiratory failure COPD exacerbation Cor pulmonale RLL pneumonia Acute on Chronic combined CHF Morbid obesity Tobacco dependence - Patient is on IV Lasix, DuoNeb, Solu-Medrol, CPAP daily at bedtime, non rebreather mask - D/C antibiotic - Cardiology consult appreciated - Pulmonary consult appreciated Hyperlipidemia; continue statin Diabetes - ON ssi and lantus qhs DVT prophylaxis - On heparin DisPosition - Continue inpatient care - History Interval history: Patient was seen and evaluated this morning, patient is still complaining some shortness of breath. Patient has leg swelling. Patient was desaturating earlier in the morning and then placed on non-rebreather mask. Hospitalist Physical - Physical exam Narrative exam: Not in cardiopulmonary distress. The patient is obese. Vital signs as documented. Head exam is unremarkable. No scleral icterus . Neck is without jugular venous distension, thyromegaly, or carotid bruits. Lungs wheezing and decrease air entry on bibasilar area. Cardiac exam reveals regular rate and Rhythm. Abdominal exam reveals normal bowel sounds, no masses, obese abdomen. Extremities +2 pedal and pretibial edema [employer]CHITECT: Alert and oriented 3. - Constitutional Vitals: Temp Pulse Resp BP Pulse Ox 97.3 F L 91 H 22 163/95 94 08/05/18 15:53 08/05/18 15:53 08/05/18 15:53 08/05/18 15:53 08/05/18 15:53 General appearance: Present: no acute distress Results - Labs CBC & Chem 7: 08/04/18 05:18 08/04/18 05:18 Labs: Laboratory Last Values WBC 5.9 K/mm3 (4.5-11.0) 08/04/18 05:18 RBC 4.75 M/mm3 (3.65-5.03) 08/04/18 05:18 Hgb 15.0 gm/dl (11.8-15.2) 08/04/18 05:18 Hct 44.7 % (35.5-45.6) 08/04/18 05:18 MCV 94 fl (84-94) 08/04/18 05:18 MCH 32 pg (28-32) 08/04/18 05:18 MCHC 34 % (32-34) 08/04/18 05:18 RDW 14.1 % (13.2-15.2) 08/04/18 05:18 Plt Count 158 K/mm3 (140-440) 08/04/18 05:18 Lymph % (Auto) 12.3 % (13.4-35.0) L 08/03/18 05:00 Harris % (Auto) 10.9 % (0.0-7.3) H 08/03/18 05:00 Eos % (Auto) 2.8 % (0.0-4.3) 08/03/18 05:00 Baso % (Auto) 0.8 % (0.0-1.8) 08/03/18 05:00 Lymph # 0.9 K/mm3 (1.2-5.4) L 08/03/18 05:00 Harris # 0.8 K/mm3 (0.0-0.8) 08/03/18 05:00 Eos # 0.2 K/mm3 (0.0-0.4) 08/03/18 05:00 Baso # 0.1 K/mm3 (0.0-0.1) 08/03/18 05:00 Add Manual Diff Complete 08/04/18 05:18 Total Counted 100 08/04/18 05:18 Seg Neutrophils % 73.2 % (40.0-70.0) H 08/03/18 05:00 Seg Neuts % (Manual) 93.0 % (40.0-70.0) H 08/04/18 05:18 Band Neutrophils % 1.0 % 08/04/18 05:18 Lymphocytes % (Manual) 1.0 % (13.4-35.0) L 08/04/18 05:18 Reactive Lymphs % (Man) 0 % 08/04/18 05:18 Monocytes % (Manual) 4.0 % (0.0-7.3) 08/04/18 05:18 Eosinophils % (Manual) 0 % (0.0-4.3) 08/04/18 05:18 Basophils % (Manual) 1.0 % (0.0-1.8) 08/04/18 05:18 Metamyelocytes % 0 % 08/04/18 05:18 Myelocytes % 0 % 08/04/18 05:18 Promyelocytes % 0 % 08/04/18 05:18 Blast Cells % 0 % 08/04/18 05:18 Nucleated RBC % Not Reportable 08/04/18 05:18 Seg Neutrophils # 5.5 K/mm3 (1.8-7.7) 08/03/18 05:00 Seg Neutrophils # Man 5.5 K/mm3 (1.8-7.7) 08/04/18 05:18 Band Neutrophils # 0.1 K/mm3 08/04/18 05:18 Lymphocytes # (Manual) 0.1 K/mm3 (1.2-5.4) L 08/04/18 05:18 Abs React Lymphs (Man) 0.0 K/mm3 08/04/18 05:18 Monocytes # (Manual) 0.2 K/mm3 (0.0-0.8) 08/04/18 05:18 Eosinophils # (Manual) 0.0 K/mm3 (0.0-0.4) 08/04/18 05:18 Basophils # (Manual) 0.1 K/mm3 (0.0-0.1) 08/04/18 05:18 Metamyelocytes # 0.0 K/mm3 08/04/18 05:18 Myelocytes # 0.0 K/mm3 08/04/18 05:18 Promyelocytes # 0.0 K/mm3 08/04/18 05:18 Blast Cells # 0.0 K/mm3 08/04/18 05:18 WBC Morphology Not Reportable 08/04/18 05:18 Hypersegmented Neuts Not Reportable 08/04/18 05:18 Hyposegmented Neuts Not Reportable 08/04/18 05:18 Hypogranular Neuts Not Reportable 08/04/18 05:18 Smudge Cells Not Reportable 08/04/18 05:18 Toxic Granulation Not Reportable 08/04/18 05:18 Toxic Vacuolation Not Reportable 08/04/18 05:18 Dohle Bodies Not Reportable 08/04/18 05:18 Pelger-Huet Anomaly Not Reportable 08/04/18 05:18 Amanda Rods Not Reportable 08/04/18 05:18 Platelet Estimate Cons 08/04/18 05:18 Clumped Platelets Not Reportable 08/04/18 05:18 Plt Clumps, EDTA Not Reportable 08/04/18 05:18 Large Platelets Not Reportable 08/04/18 05:18 Giant Platelets Not Reportable 08/04/18 05:18 Platelet Satelliting Not Reportable 08/04/18 05:18 Plt Morphology Comment Not Reportable 08/04/18 05:18 RBC Morphology Normal 08/04/18 05:18 Dimorphic RBCs Not Reportable 08/04/18 05:18 Polychromasia Not Reportable 08/04/18 05:18 Hypochromasia Not Reportable 08/04/18 05:18 Poikilocytosis Not Reportable 08/04/18 05:18 Anisocytosis Not Reportable 08/04/18 05:18 Microcytosis Not Reportable 08/04/18 05:18 Macrocytosis Not Reportable 08/04/18 05:18 Spherocytes Not Reportable 08/04/18 05:18 Pappenheimer Bodies Not Reportable 08/04/18 05:18 Sickle Cells Not Reportable 08/04/18 05:18 Target Cells Not Reportable 08/04/18 05:18 Tear Drop Cells Not Reportable 08/04/18 05:18 Ovalocytes Not Reportable 08/04/18 05:18 Helmet Cells Not Reportable 08/04/18 05:18 [place] Bodies Not Reportable 08/04/18 05:18 Leola Rings Not Reportable 08/04/18 05:18 Krissy Cells Not Reportable 08/04/18 05:18 Bite Cells Not Reportable 08/04/18 05:18 Crenated Cell Not Reportable 08/04/18 05:18 Elliptocytes Not Reportable 08/04/18 05:18 Acanthocytes (Spur) Not Reportable 08/04/18 05:18 Rouleaux Not Reportable 08/04/18 05:18 Hemoglobin C Crystals Not Reportable 08/04/18 05:18 Schistocytes Not Reportable 08/04/18 05:18 Malaria parasites Not Reportable 08/04/18 05:18 Elias Bodies Not Reportable 08/04/18 05:18 Hem Pathologist Commnt No 08/04/18 05:18 PT 11.3 Sec. (12.2-14.9) L 08/02/18 16:44 INR 0.78 (0.87-1.13) L 08/02/18 16:44 APTT 27.5 Sec. (24.2-36.6) 08/02/18 16:44 Sodium 134 mmol/L (137-145) L 08/04/18 05:18 Potassium 4.8 mmol/L (3.6-5.0) 08/04/18 05:18 Chloride 91.9 mmol/L (98-107) L 08/04/18 05:18 Carbon Dioxide 28 mmol/L (22-30) 08/04/18 05:18 Anion Gap 19 mmol/L 08/04/18 05:18 BUN 14 mg/dL (9-20) 08/04/18 05:18 Creatinine 0.7 mg/dL (0.8-1.5) L 08/04/18 05:18 Estimated GFR > 60 ml/min 08/04/18 05:18 BUN/Creatinine Ratio 20 % 08/04/18 05:18 Glucose 243 mg/dL (75-100) H 08/04/18 05:18 POC Glucose 241 (70-105) H 08/05/18 15:20 Hemoglobin A1c 7.3 % (4-6) H 08/02/18 Unknown Calcium 9.1 mg/dL (8.4-10.2) 08/04/18 05:18 Magnesium 1.50 mg/dL (1.7-2.3) L 08/04/18 00:17 Total Bilirubin 0.40 mg/dL (0.1-1.2) 08/03/18 05:00 AST 22 units/L (5-40) 08/03/18 05:00 ALT 22 units/L (7-56) 08/03/18 05:00 Alkaline Phosphatase 87 units/L (35-129) 08/03/18 05:00 Troponin T < 0.010 ng/mL (0.00-0.029) 08/02/18 16:44 NT-Pro-B Natriuret Pep 4912 pg/mL (0-900) H 08/02/18 16:44 Total Protein 6.4 g/dL (6.3-8.2) 08/03/18 05:00 Albumin 3.9 g/dL (3.9-5) 08/03/18 05:00 Albumin/Globulin Ratio 1.6 % 08/03/18 05:00
[2018-08-06] MEDS: HumaLOG SUB-Q SCH ×5 (00:10→22:30)
[2018-08-06] MEDS: DILAUDID IV PRN ×6 (00:10→22:37)
[2018-08-06] MEDS: LANTUS SUB-Q SCH ×2 (01:11→22:29)
[2018-08-06] MEDS: SODIUM CHLORIDE FLUSH SYRINGE 10 ML IV SCH ×3 (01:12→22:31)
[2018-08-06] MEDS: LASIX IV SCH ×2 (06:02→18:18)
[2018-08-06] MEDS: SOLU-Medrol IV SCH ×3 (06:02→18:16)
[2018-08-06 07:13] LABS: BUN/Creatinine Ratio 27; Blood Urea Nitrogen 27 mg/dL (9-20); Calcium 9.5 mg/dL (8.4-10.2); Hemolysis Index 23
[2018-08-06] MEDS ORDERED: KIONEX PO ONE (08:28)
[2018-08-06] MEDS: BROVANA NEBU IH SCH ×2 (09:20→20:33)
[2018-08-06] MEDS: PULMICORT IH SCH ×2 (09:21→20:34)
[2018-08-06] MEDS: DUONEB *Not for PRN Use IH SCH ×4 (09:24→20:33)
[2018-08-06] MEDS: GLUCOPHAGE PO SCH ×2 (09:51→18:18)
[2018-08-06] MEDS: NEURONTIN PO SCH ×3 (09:52→20:42)
[2018-08-06] MEDS: PEPCID PO SCH ×2 (09:52→22:29)
[2018-08-06] MEDS: LEVAQUIN PO SCH (09:52)
[2018-08-06] MEDS: HEPARIN SUB-Q SCH ×2 (09:53→22:29)
--- NOTE | 2018-08-06 10:34 | Progress Note ---
Assessment and Plan 1. Acute exacerbation off chronic obstructive pulmonary disease 2. Essential hypertension 3. Dilated cardiomyopathy with biventricular failure severe passive pulmonary hypertension left ventricular ejection fraction 40-45% 4. Type 2 diabetes mellitus 5. Peripheral vascular disease Plan. Cardiac-alvarado stable continue conservative management. Subjective Date of service: 08/06/18 Interval history: Dyspnea cough no cardiac symptoms. Objective Vital Signs Temp Pulse Pulse Pulse Resp Resp Resp 08/06/18 07:19 97.0 F L 86 20 08/06/18 03:41 98.0 F 97 H 18 08/06/18 00:31 98.0 F 89 20 08/05/18 22:00 95 H 20 08/05/18 20:51 89 18 08/05/18 20:26 82 16 08/05/18 19:30 98.0 F 84 20 08/05/18 15:53 97.3 F L 91 H 22 08/05/18 14:16 96 H 18 08/05/18 14:12 08/05/18 14:01 85 08/05/18 12:54 08/05/18 12:00 97.5 F L 78 20 BP BP Pulse Ox 08/06/18 07:19 162/106 92 08/06/18 03:41 124/79 72 L 08/06/18 00:31 137/84 84 08/05/18 22:00 08/05/18 20:51 08/05/18 20:26 99 08/05/18 19:30 155/92 96 08/05/18 15:53 163/95 94 08/05/18 14:16 08/05/18 14:12 98 08/05/18 14:01 08/05/18 12:54 95 08/05/18 12:00 153/93 97 - Physical Examination General: No Apparent Distress HEENT: Positive: PERRL Neck: Positive: neck supple, trachea midline. Negative: JVD/HJR Cardiac: Positive: Regular Rate, S1/S2, PMI, Laterally Displaced Lungs: Positive: clear to auscultation, No Wheeze, Rales, Rhonchi Neuro: Positive: Grossly Intact Abdomen: Positive: Unremarkable, Soft Extremities: Present: +1 Edema, Other (left mid metatarsal amputation) - Labs and Meds Comprehensive Metabolic Panel 08/06/18 Range/Units 05:49 Sodium 132 L (137-145) mmol/L Potassium 5.5 H (3.6-5.0) mmol/L Chloride 90.1 L (98-107) mmol/L Carbon Dioxide 31 H (22-30) mmol/L BUN 27 H (9-20) mg/dL Creatinine 1.0 (0.8-1.5) mg/dL Glucose 283 H (75-100) mg/dL Calcium 9.5 (8.4-10.2) mg/dL
[2018-08-06] MEDS: K-DUR PO SCH (13:52)
[2018-08-06] MEDS: XANAX PO PRN ×2 (14:11→22:37)
--- NOTE | 2018-08-06 14:13 | Progress Note ---
Assessment and Plan 57 y/o male with systolic heart failure and severe pulmonary hypertension, also tobacco abuse and possibly underlying COPD 1. Pulm HTN- likely multifactorial, including left sided heart failure, chronic hypoxemia, and maybe untreated sleep apnea. Continue lasix therapy. could benefit from right heart cath to truly evaluate right sided pressures but that could be done as an outpatient 2. Dyspnea-Patient with pretty substantial ILD on HRCT. Most likely IPF. Will definitely need RHC at some point and the begin to screen for ILD treatment. 3. Tobacco Abuse-counseled on smoking cessation. Interested in drug therapy. Will start BID Wellbutrin 4. Continue High dose steroids for now, patient may be at his new baseline. 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 If being discharged would send out Prednisone 60 indefinitely with bactrim for PCP prophylaxis and script for revatio. He can follow up with his honey liquefier and they can review CT and do further work up there. Patient already has oxygen at home. Subjective Date of service: 08/06/18 Interval history: No acute events. Objective Vital Signs - 12hr 08/06/18 08/06/18 08/06/18 03:41 07:19 09:20 Temperature 98.0 F 97.0 F L Pulse Rate 97 H 86 Pulse Rate [ Anterior Bilateral Throughout] Pulse Rate [ 78 Posterior Bilateral Throughout] Respiratory 18 20 Rate Respiratory Rate [Anterior Bilateral Throughout] Respiratory 20 Rate [Posterior Bilateral Throughout] Blood Pressure 124/79 162/106 O2 Sat by Pulse 72 L 92 Oximetry 08/06/18 08/06/18 08/06/18 09:29 10:00 11:12 Temperature 97.7 F Pulse Rate 83 Pulse Rate [ Anterior Bilateral Throughout] Pulse Rate [ 72 Posterior Bilateral Throughout] Respiratory 22 Rate Respiratory Rate [Anterior Bilateral Throughout] Respiratory 20 Rate [Posterior Bilateral Throughout] Blood Pressure 172/95 O2 Sat by Pulse 96 98 Oximetry 08/06/18 08/06/18 12:13 12:22 Temperature Pulse Rate Pulse Rate [ 80 78 Anterior Bilateral Throughout] Pulse Rate [ Posterior Bilateral Throughout] Respiratory Rate Respiratory 20 20 Rate [Anterior Bilateral Throughout] Respiratory Rate [Posterior Bilateral Throughout] Blood Pressure O2 Sat by Pulse Oximetry Constitutional: no acute distress, alert, other (appear older than stated age) Eyes: icteric ENT: oropharynx moist, other (very poor dentition) Neck: supple, other (large in cirumference) Effort: normal, other (barrell chested) Ascultation: Bilateral: wheezes Percussion: Bilateral: not dull Tactile fremitus: Bilateral: normal Cardiovascular: regular rate and rhythm Gastrointestinal: normoactive bowel sounds, soft, non-tender Extremities: no edema, cyanosis Neurologic: normal mental status Psychiatric: mood appropriate CBC and BMP: 08/04/18 05:18 08/06/18 05:49 ABG, PT/INR, D-dimer: PT/INR, D-dimer PT 11.3 Sec. (12.2-14.9) L 08/02/18 16:44 INR 0.78 (0.87-1.13) L 08/02/18 16:44 Abnormal lab findings: Abnormal Labs 08/02/18 08/02/18 08/02/18 16:25 16:25 16:44 Hgb 15.3 H Hct 45.8 H MCV 95 H Lymph % (Auto) 6.7 L [place] % (Auto) 8.8 H Lymph # 0.5 L Seg Neutrophils % 82.5 H Seg Neuts % (Manual) Lymphocytes % (Manual) Lymphocytes # (Manual) PT 11.3 L INR 0.78 L Sodium 134 L Potassium Chloride 97.8 L Carbon Dioxide BUN Creatinine Glucose 126 H POC Glucose Hemoglobin A1c Magnesium NT-Pro-B Natriuret Pep 08/02/18 08/02/18 08/03/18 16:44 Unknown 05:00 Hgb Hct MCV 95 H Lymph % (Auto) 12.3 L [place] % (Auto) 10.9 H Lymph # 0.9 L Seg Neutrophils % 73.2 H Seg Neuts % (Manual) Lymphocytes % (Manual) Lymphocytes # (Manual) PT INR Sodium Potassium Chloride Carbon Dioxide BUN Creatinine Glucose POC Glucose Hemoglobin A1c 7.3 H Magnesium NT-Pro-B Natriuret Pep 4912 H 08/03/18 08/03/18 08/04/18 05:00 21:46 00:17 Hgb Hct MCV Lymph % (Auto) [place] % (Auto) Lymph # Seg Neutrophils % Seg Neuts % (Manual) Lymphocytes % (Manual) Lymphocytes # (Manual) PT INR Sodium Potassium Chloride Carbon Dioxide BUN Creatinine 0.7 L Glucose POC Glucose 207 H Hemoglobin A1c Magnesium 1.50 L NT-Pro-B Natriuret Pep 08/04/18 08/04/18 08/04/18 05:18 05:18 06:32 Hgb Hct MCV Lymph % (Auto) [place] % (Auto) Lymph # Seg Neutrophils % Seg Neuts % (Manual) 93.0 H Lymphocytes % (Manual) 1.0 L Lymphocytes # (Manual) 0.1 L PT INR Sodium 134 L Potassium Chloride 91.9 L Carbon Dioxide BUN Creatinine 0.7 L Glucose 243 H POC Glucose 216 H Hemoglobin A1c Magnesium NT-Pro-B Natriuret Pep 08/04/18 08/04/18 08/04/18 06:48 12:51 21:23 Hgb Hct MCV Lymph % (Auto) [place] % (Auto) Lymph # Seg Neutrophils % Seg Neuts % (Manual) Lymphocytes % (Manual) Lymphocytes # (Manual) PT INR Sodium Potassium Chloride Carbon Dioxide BUN Creatinine Glucose POC Glucose 220 H 202 H 278 H Hemoglobin A1c Magnesium NT-Pro-B Natriuret Pep 08/05/18 08/05/18 08/05/18 06:33 10:40 15:20 Hgb Hct MCV Lymph % (Auto) [place] % (Auto) Lymph # Seg Neutrophils % Seg Neuts % (Manual) Lymphocytes % (Manual) Lymphocytes # (Manual) PT INR Sodium Potassium Chloride Carbon Dioxide BUN Creatinine Glucose POC Glucose 266 H 233 H 241 H Hemoglobin A1c Magnesium NT-Pro-B Natriuret Pep 08/06/18 08/06/18 08/06/18 00:01 05:49 11:14 Hgb Hct MCV Lymph % (Auto) [place] % (Auto) Lymph # Seg Neutrophils % Seg Neuts % (Manual) Lymphocytes % (Manual) Lymphocytes # (Manual) PT INR Sodium 132 L Potassium 5.5 H Chloride 90.1 L Carbon Dioxide 31 H BUN 27 H Creatinine Glucose 283 H POC Glucose 334 H 266 H Hemoglobin A1c Magnesium NT-Pro-B Natriuret Pep
--- NOTE | 2018-08-06 16:33 | Progress Note ---
Assessment and Plan Assessment and plan: Acute on chronic respiratory failure ILD COPD exacerbation Cor pulmonale RLL pneumonia Acute on Chronic combined CHF Morbid obesity Tobacco dependence - Patient is on IV Lasix, DuoNeb, Solu-Medrol, CPAP daily at bedtime, BIPAP as needed - D/C antibiotic - Cardiology consult appreciated - Pulmonary consult appreciated Hyperlipidemia; continue statin Diabetes - ON ssi and lantus qhs DVT prophylaxis - On heparin DisPosition - Continue inpatient care - Possible DC tomorrow History Interval history: Patient was seen and evaluated this morning, patient is still complaining some shortness of breath. Patient has leg swelling. Patient is complaining pain. Hospitalist Physical - Physical exam Narrative exam: Not in cardiopulmonary distress. The patient is obese. Vital signs as documented. Head exam is unremarkable. No scleral icterus . Neck is without jugular venous distension, thyromegaly, or carotid bruits. Lungs wheezing and decrease air entry on bibasilar area. Cardiac exam reveals regular rate and Rhythm. Abdominal exam reveals normal bowel sounds, no masses, obese abdomen. Extremities +2 pedal and pretibial edema PRODUCE SORTER: Alert and oriented 3. - Constitutional Vitals: Temp Pulse Resp BP Pulse Ox 97.7 F 78 20 172/95 98 08/06/18 11:12 08/06/18 12:22 08/06/18 12:22 08/06/18 11:12 08/06/18 11:12 General appearance: Present: no acute distress Results - Labs CBC & Chem 7: 08/04/18 05:18 08/06/18 05:49 Labs: Laboratory Last Values WBC 5.9 K/mm3 (4.5-11.0) 08/04/18 05:18 RBC 4.75 M/mm3 (3.65-5.03) 08/04/18 05:18 Hgb 15.0 gm/dl (11.8-15.2) 08/04/18 05:18 Hct 44.7 % (35.5-45.6) 08/04/18 05:18 MCV 94 fl (84-94) 08/04/18 05:18 MCH 32 pg (28-32) 08/04/18 05:18 MCHC 34 % (32-34) 08/04/18 05:18 RDW 14.1 % (13.2-15.2) 08/04/18 05:18 Plt Count 158 K/mm3 (140-440) 08/04/18 05:18 Lymph % (Auto) 12.3 % (13.4-35.0) L 08/03/18 05:00 [place] % (Auto) 10.9 % (0.0-7.3) H 08/03/18 05:00 Eos % (Auto) 2.8 % (0.0-4.3) 08/03/18 05:00 Baso % (Auto) 0.8 % (0.0-1.8) 08/03/18 05:00 Lymph # 0.9 K/mm3 (1.2-5.4) L 08/03/18 05:00 [place] # 0.8 K/mm3 (0.0-0.8) 08/03/18 05:00 Eos # 0.2 K/mm3 (0.0-0.4) 08/03/18 05:00 Baso # 0.1 K/mm3 (0.0-0.1) 08/03/18 05:00 Add Manual Diff Complete 08/04/18 05:18 Total Counted 100 08/04/18 05:18 Seg Neutrophils % 73.2 % (40.0-70.0) H 08/03/18 05:00 Seg Neuts % (Manual) 93.0 % (40.0-70.0) H 08/04/18 05:18 Band Neutrophils % 1.0 % 08/04/18 05:18 Lymphocytes % (Manual) 1.0 % (13.4-35.0) L 08/04/18 05:18 Reactive Lymphs % (Man) 0 % 08/04/18 05:18 Monocytes % (Manual) 4.0 % (0.0-7.3) 08/04/18 05:18 Eosinophils % (Manual) 0 % (0.0-4.3) 08/04/18 05:18 Basophils % (Manual) 1.0 % (0.0-1.8) 08/04/18 05:18 Metamyelocytes % 0 % 08/04/18 05:18 Myelocytes % 0 % 08/04/18 05:18 Promyelocytes % 0 % 08/04/18 05:18 Blast Cells % 0 % 08/04/18 05:18 Nucleated RBC % Not Reportable 08/04/18 05:18 Seg Neutrophils # 5.5 K/mm3 (1.8-7.7) 08/03/18 05:00 Seg Neutrophils # Man 5.5 K/mm3 (1.8-7.7) 08/04/18 05:18 Band Neutrophils # 0.1 K/mm3 08/04/18 05:18 Lymphocytes # (Manual) 0.1 K/mm3 (1.2-5.4) L 08/04/18 05:18 Abs React Lymphs (Man) 0.0 K/mm3 08/04/18 05:18 Monocytes # (Manual) 0.2 K/mm3 (0.0-0.8) 08/04/18 05:18 Eosinophils # (Manual) 0.0 K/mm3 (0.0-0.4) 08/04/18 05:18 Basophils # (Manual) 0.1 K/mm3 (0.0-0.1) 08/04/18 05:18 Metamyelocytes # 0.0 K/mm3 08/04/18 05:18 Myelocytes # 0.0 K/mm3 08/04/18 05:18 Promyelocytes # 0.0 K/mm3 08/04/18 05:18 Blast Cells # 0.0 K/mm3 08/04/18 05:18 WBC Morphology Not Reportable 08/04/18 05:18 Hypersegmented Neuts Not Reportable 08/04/18 05:18 Hyposegmented Neuts Not Reportable 08/04/18 05:18 Hypogranular Neuts Not Reportable 08/04/18 05:18 Smudge Cells Not Reportable 08/04/18 05:18 Toxic Granulation Not Reportable 08/04/18 05:18 Toxic Vacuolation Not Reportable 08/04/18 05:18 Dohle Bodies Not Reportable 08/04/18 05:18 Pelger-Huet Anomaly Not Reportable 08/04/18 05:18 Amanda Rods Not Reportable 08/04/18 05:18 Platelet Estimate Cons 08/04/18 05:18 Clumped Platelets Not Reportable 08/04/18 05:18 Plt Clumps, EDTA Not Reportable 08/04/18 05:18 Large Platelets Not Reportable 08/04/18 05:18 Giant Platelets Not Reportable 08/04/18 05:18 Platelet Satelliting Not Reportable 08/04/18 05:18 Plt Morphology Comment Not Reportable 08/04/18 05:18 RBC Morphology Normal 08/04/18 05:18 Dimorphic RBCs Not Reportable 08/04/18 05:18 Polychromasia Not Reportable 08/04/18 05:18 Hypochromasia Not Reportable 08/04/18 05:18 Poikilocytosis Not Reportable 08/04/18 05:18 Anisocytosis Not Reportable 08/04/18 05:18 Microcytosis Not Reportable 08/04/18 05:18 Macrocytosis Not Reportable 08/04/18 05:18 Spherocytes Not Reportable 08/04/18 05:18 Pappenheimer Bodies Not Reportable 08/04/18 05:18 Sickle Cells Not Reportable 08/04/18 05:18 Target Cells Not Reportable 08/04/18 05:18 Tear Drop Cells Not Reportable 08/04/18 05:18 Ovalocytes Not Reportable 08/04/18 05:18 Helmet Cells Not Reportable 08/04/18 05:18 [place] Bodies Not Reportable 08/04/18 05:18 [place] Rings Not Reportable 08/04/18 05:18 [place] Cells Not Reportable 08/04/18 05:18 Bite Cells Not Reportable 08/04/18 05:18 Crenated Cell Not Reportable 08/04/18 05:18 Elliptocytes Not Reportable 08/04/18 05:18 Acanthocytes (Spur) Not Reportable 08/04/18 05:18 Rouleaux Not Reportable 08/04/18 05:18 Hemoglobin C Crystals Not Reportable 08/04/18 05:18 Schistocytes Not Reportable 08/04/18 05:18 Malaria parasites Not Reportable 08/04/18 05:18 Elias Bodies Not Reportable 08/04/18 05:18 Hem Pathologist Commnt No 08/04/18 05:18 PT 11.3 Sec. (12.2-14.9) L 08/02/18 16:44 INR 0.78 (0.87-1.13) L 08/02/18 16:44 APTT 27.5 Sec. (24.2-36.6) 08/02/18 16:44 Sodium 132 mmol/L (137-145) L 08/06/18 05:49 Potassium 5.5 mmol/L (3.6-5.0) H 08/06/18 05:49 Chloride 90.1 mmol/L (98-107) L 08/06/18 05:49 Carbon Dioxide 31 mmol/L (22-30) H 08/06/18 05:49 Anion Gap 16 mmol/L 08/06/18 05:49 BUN 27 mg/dL (9-20) H 08/06/18 05:49 Creatinine 1.0 mg/dL (0.8-1.5) 08/06/18 05:49 Estimated GFR > 60 ml/min 08/06/18 05:49 BUN/Creatinine Ratio 27 % 08/06/18 05:49 Glucose 283 mg/dL (75-100) H 08/06/18 05:49 POC Glucose 266 (70-105) H 08/06/18 11:14 Hemoglobin A1c 7.3 % (4-6) H 08/02/18 Unknown Calcium 9.5 mg/dL (8.4-10.2) 08/06/18 05:49 Magnesium 1.50 mg/dL (1.7-2.3) L 08/04/18 00:17 Total Bilirubin 0.40 mg/dL (0.1-1.2) 08/03/18 05:00 AST 22 units/L (5-40) 08/03/18 05:00 ALT 22 units/L (7-56) 08/03/18 05:00 Alkaline Phosphatase 87 units/L (35-129) 08/03/18 05:00 Troponin T < 0.010 ng/mL (0.00-0.029) 08/02/18 16:44 NT-Pro-B Natriuret Pep 4912 pg/mL (0-900) H 08/02/18 16:44 Total Protein 6.4 g/dL (6.3-8.2) 08/03/18 05:00 Albumin 3.9 g/dL (3.9-5) 08/03/18 05:00 Albumin/Globulin Ratio 1.6 % 08/03/18 05:00
[2018-08-06] MEDS: REVATIO PO SCH (20:42)
[2018-08-07] MEDS: SOLU-Medrol IV SCH ×4 (00:08→17:11)
[2018-08-07 06:12] LABS: BUN/Creatinine Ratio 32; Blood Urea Nitrogen 38 mg/dL (9-20); Calcium 9.2 mg/dL (8.4-10.2); Hemolysis Index 9
[2018-08-07] MEDS: DILAUDID IV PRN ×2 (06:14→10:20)
[2018-08-07] MEDS: LASIX IV SCH ×2 (06:14→17:06)
[2018-08-07] MEDS: BROVANA NEBU IH SCH ×2 (08:00→19:44)
[2018-08-07] MEDS: PULMICORT IH SCH ×2 (08:00→19:44)
[2018-08-07] MEDS: DUONEB *Not for PRN Use IH SCH ×3 (08:00→20:00)
[2018-08-07] MEDS: HumaLOG SUB-Q SCH ×4 (08:15→22:02)
[2018-08-07] MEDS: GLUCOPHAGE PO SCH ×2 (10:22→17:05)
[2018-08-07] MEDS: PEPCID PO SCH ×2 (10:22→21:55)
[2018-08-07] MEDS: NEURONTIN PO SCH ×3 (10:22→19:49)
[2018-08-07] MEDS: LEVAQUIN PO SCH (10:22)
[2018-08-07] MEDS: SODIUM CHLORIDE FLUSH SYRINGE 10 ML IV SCH ×2 (10:23→21:58)
[2018-08-07] MEDS: HEPARIN SUB-Q SCH ×2 (10:24→21:55)
[2018-08-07] MEDS: REVATIO PO SCH ×3 (10:42→19:50)
--- NOTE | 2018-08-07 11:40 | Progress Note ---
Addendum entered and electronically signed by MARGIE LARSEN MD 08/07/18 17:55: Cardiac status is stable, continue pulmonary assessment and management of his COPD and cor pulmonale. Original Note: Assessment and Plan Cor pulmonale COPD on home oxygen HTN Diabetes Hx of PVD Tobacco abuse 01/2017: thallium stress test showed a fixed inferior defect without ischemia. An echocardiogram this admission shows evidence of a severe pulmonary hypertension, LVEF 40-45%. Recommend: Conservative cardiac management. We will follow intermittently. Subjective Date of service: 08/07/18 Interval history: Patient denies chest pain. Objective Vital Signs Temp Pulse Pulse Pulse Resp Resp Resp 08/07/18 10:00 98 H 18 08/07/18 09:50 96 H 18 08/07/18 04:24 98.3 F 91 H 17 08/07/18 00:21 98.0 F 17 08/06/18 22:20 08/06/18 22:00 95 H 08/06/18 20:30 78 16 08/06/18 16:45 97.2 F L 88 22 08/06/18 12:22 78 20 08/06/18 12:13 80 20 BP Pulse Ox 08/07/18 10:00 08/07/18 09:50 08/07/18 04:24 123/74 73 L 08/07/18 00:21 127/76 08/06/18 22:20 96 08/06/18 22:00 08/06/18 20:30 08/06/18 16:45 138/85 96 08/06/18 12:22 08/06/18 12:13 - Physical Examination General: No Apparent Distress HEENT: Positive: PERRL Neck: Positive: trachea midline Cardiac: Positive: Reg Rate and Rhythm Lungs: Positive: Decreased Breath Sounds Neuro: Positive: Grossly Intact Extremities: Present: +1 Edema, Other (left mid metatarsal amputation) - Labs and Meds Comprehensive Metabolic Panel 08/07/18 Range/Units 05:35 Sodium 136 L (137-145) mmol/L Potassium 4.8 (3.6-5.0) mmol/L Chloride 92.2 L (98-107) mmol/L Carbon Dioxide 34 H (22-30) mmol/L BUN 38 H (9-20) mg/dL Creatinine 1.2 (0.8-1.5) mg/dL Glucose 281 H (75-100) mg/dL Calcium 9.2 (8.4-10.2) mg/dL
--- NOTE | 2018-08-07 13:44 | Progress Note ---
Assessment and Plan Systolic heart failure exacerbation episode. Severe pulmonary hypertension. Echo with low ejection fraction of 45% and severe pressures at 79 mmHg. Consistent with group 2 and possibly group 3. She will be out of proportion but unable to clarify this with a right heart catheterization. Tobacco abuse COPD Recommendations Continue oxygen support Avoid hypoxemia at nighttime. The patient reports some history of snoring but denies prior treatment for sleep apnea. This can be reassessed by his unit operator as an outpatient Ventilation perfusion scanning to evaluate for chronic thromboembolic hypertension or CTEPH. Since echo suggests significant group 2 PHT changes it is unclear of the benefits of Revatio at this point. I will probably optimize PAWP pressures first clinically or reassess with right heart catheterization and then determine need/benefit of Revatio. 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 Pending to be discharged to rehabilitation Objective Vital Signs - 12hr 08/07/18 08/07/18 08/07/18 04:24 09:50 10:00 Temperature 98.3 F Pulse Rate 91 H Pulse Rate [ 96 H 98 H Posterior Bilateral Throughout] Respiratory 17 Rate Respiratory 18 18 Rate [Posterior Bilateral Throughout] Blood Pressure 123/74 O2 Sat by Pulse 73 L 91 Oximetry Constitutional: no acute distress, alert, other (appear older than stated age) Eyes: icteric ENT: oropharynx moist Neck: supple, other (large in cirumference) Effort: normal, other (barrell chested) Ascultation: Bilateral: clear, diminished breath sounds Percussion: Bilateral: not dull Tactile fremitus: Bilateral: normal Cardiovascular: regular rate and rhythm Gastrointestinal: normoactive bowel sounds, soft, non-tender Extremities: no edema, cyanosis Neurologic: normal mental status Psychiatric: mood appropriate CBC and BMP: 08/04/18 05:18 08/07/18 05:35 ABG, PT/INR, D-dimer: PT/INR, D-dimer PT 11.3 Sec. (12.2-14.9) L 08/02/18 16:44 INR 0.78 (0.87-1.13) L 08/02/18 16:44 Abnormal lab findings: Abnormal Labs 08/02/18 08/02/18 08/02/18 16:25 16:25 16:44 Hgb 15.3 H Hct 45.8 H MCV 95 H Lymph % (Auto) 6.7 L [place] % (Auto) 8.8 H Lymph # 0.5 L Seg Neutrophils % 82.5 H Seg Neuts % (Manual) Lymphocytes % (Manual) Lymphocytes # (Manual) PT 11.3 L INR 0.78 L Sodium 134 L Potassium Chloride 97.8 L Carbon Dioxide BUN Creatinine Glucose 126 H POC Glucose Hemoglobin A1c Magnesium NT-Pro-B Natriuret Pep 08/02/18 08/02/18 08/03/18 16:44 Unknown 05:00 Hgb Hct MCV 95 H Lymph % (Auto) 12.3 L [place] % (Auto) 10.9 H Lymph # 0.9 L Seg Neutrophils % 73.2 H Seg Neuts % (Manual) Lymphocytes % (Manual) Lymphocytes # (Manual) PT INR Sodium Potassium Chloride Carbon Dioxide BUN Creatinine Glucose POC Glucose Hemoglobin A1c 7.3 H Magnesium NT-Pro-B Natriuret Pep 4912 H 08/03/18 08/03/18 08/04/18 05:00 21:46 00:17 Hgb Hct MCV Lymph % (Auto) [place] % (Auto) Lymph # Seg Neutrophils % Seg Neuts % (Manual) Lymphocytes % (Manual) Lymphocytes # (Manual) PT INR Sodium Potassium Chloride Carbon Dioxide BUN Creatinine 0.7 L Glucose POC Glucose 207 H Hemoglobin A1c Magnesium 1.50 L NT-Pro-B Natriuret Pep 08/04/18 08/04/18 08/04/18 05:18 05:18 06:32 Hgb Hct MCV Lymph % (Auto) [place] % (Auto) Lymph # Seg Neutrophils % Seg Neuts % (Manual) 93.0 H Lymphocytes % (Manual) 1.0 L Lymphocytes # (Manual) 0.1 L PT INR Sodium 134 L Potassium Chloride 91.9 L Carbon Dioxide BUN Creatinine 0.7 L Glucose 243 H POC Glucose 216 H Hemoglobin A1c Magnesium NT-Pro-B Natriuret Pep 08/04/18 08/04/18 08/04/18 06:48 12:51 21:23 Hgb Hct MCV Lymph % (Auto) [place] % (Auto) Lymph # Seg Neutrophils % Seg Neuts % (Manual) Lymphocytes % (Manual) Lymphocytes # (Manual) PT INR Sodium Potassium Chloride Carbon Dioxide BUN Creatinine Glucose POC Glucose 220 H 202 H 278 H Hemoglobin A1c Magnesium NT-Pro-B Natriuret Pep 08/05/18 08/05/18 08/05/18 06:33 10:40 15:20 Hgb Hct MCV Lymph % (Auto) [place] % (Auto) Lymph # Seg Neutrophils % Seg Neuts % (Manual) Lymphocytes % (Manual) Lymphocytes # (Manual) PT INR Sodium Potassium Chloride Carbon Dioxide BUN Creatinine Glucose POC Glucose 266 H 233 H 241 H Hemoglobin A1c Magnesium NT-Pro-B Natriuret Pep 08/06/18 08/06/18 08/06/18 00:01 05:49 11:14 Hgb Hct MCV Lymph % (Auto) [place] % (Auto) Lymph # Seg Neutrophils % Seg Neuts % (Manual) Lymphocytes % (Manual) Lymphocytes # (Manual) PT INR Sodium 132 L Potassium 5.5 H Chloride 90.1 L Carbon Dioxide 31 H BUN 27 H Creatinine Glucose 283 H POC Glucose 334 H 266 H Hemoglobin A1c Magnesium NT-Pro-B Natriuret Pep 08/06/18 08/06/18 08/07/18 16:49 21:22 05:35 Hgb Hct MCV Lymph % (Auto) [place] % (Auto) Lymph # Seg Neutrophils % Seg Neuts % (Manual) Lymphocytes % (Manual) Lymphocytes # (Manual) PT INR Sodium 136 L Potassium Chloride 92.2 L Carbon Dioxide 34 H BUN 38 H Creatinine Glucose 281 H POC Glucose 297 H 164 H Hemoglobin A1c Magnesium NT-Pro-B Natriuret Pep 08/07/18 05:57 Hgb Hct MCV Lymph % (Auto) [place] % (Auto) Lymph # Seg Neutrophils % Seg Neuts % (Manual) Lymphocytes % (Manual) Lymphocytes # (Manual) PT INR Sodium Potassium Chloride Carbon Dioxide BUN Creatinine Glucose POC Glucose 228 H Hemoglobin A1c Magnesium NT-Pro-B Natriuret Pep
[2018-08-07] MEDS: PERCOCET 5/325 PO PRN ×2 (13:51→19:49)
--- NOTE | 2018-08-07 15:52 | Progress Note ---
Assessment and Plan Assessment and plan: Acute on chronic respiratory failure ILD COPD exacerbation Cor pulmonale RLL pneumonia Acute on Chronic combined CHF Morbid obesity Tobacco dependence - Patient is on IV Lasix, DuoNeb, Solu-Medrol, CPAP daily at bedtime, BIPAP as needed - D/C antibiotic - Cardiology consult appreciated - Pulmonary consult appreciated Hyperlipidemia; continue statin Diabetes - ON ssi and lantus qhs DVT prophylaxis - On heparin DisPosition - patient need rehab - At discharge Dr Paredes recommend prednisolone 60mg daily for life and bactrim for PCP prophylaxis due to steroid induced immune suppression. History Interval history: Patient was seen and evaluated this morning, patient is still complaining some shortness of breath. Patient has leg swelling. Patient is complaining pain. Hospitalist Physical - Physical exam Narrative exam: Not in cardiopulmonary distress. The patient is obese. Vital signs as documented. Head exam is unremarkable. No scleral icterus . Neck is without jugular venous distension, thyromegaly, or carotid bruits. Lungs wheezing and decrease air entry on bibasilar area. Cardiac exam reveals regular rate and Rhythm. Abdominal exam reveals normal bowel sounds, no masses, obese abdomen. 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 - Constitutional Vitals: Temp Pulse Resp BP Pulse Ox 97.3 F L 89 20 149/80 91 08/07/18 09:57 08/07/18 15:38 08/07/18 15:38 08/07/18 09:57 08/07/18 10:00 General appearance: Present: no acute distress Results - Labs CBC & Chem 7: 08/04/18 05:18 08/07/18 05:35 Labs: Laboratory Last Values WBC 5.9 K/mm3 (4.5-11.0) 08/04/18 05:18 RBC 4.75 M/mm3 (3.65-5.03) 08/04/18 05:18 Hgb 15.0 gm/dl (11.8-15.2) 08/04/18 05:18 Hct 44.7 % (35.5-45.6) 08/04/18 05:18 MCV 94 fl (84-94) 08/04/18 05:18 MCH 32 pg (28-32) 08/04/18 05:18 MCHC 34 % (32-34) 08/04/18 05:18 RDW 14.1 % (13.2-15.2) 08/04/18 05:18 Plt Count 158 K/mm3 (140-440) 08/04/18 05:18 Lymph % (Auto) 12.3 % (13.4-35.0) L 08/03/18 05:00 [place] % (Auto) 10.9 % (0.0-7.3) H 08/03/18 05:00 Eos % (Auto) 2.8 % (0.0-4.3) 08/03/18 05:00 Baso % (Auto) 0.8 % (0.0-1.8) 08/03/18 05:00 Lymph # 0.9 K/mm3 (1.2-5.4) L 08/03/18 05:00 [place] # 0.8 K/mm3 (0.0-0.8) 08/03/18 05:00 Eos # 0.2 K/mm3 (0.0-0.4) 08/03/18 05:00 Baso # 0.1 K/mm3 (0.0-0.1) 08/03/18 05:00 Add Manual Diff Complete 08/04/18 05:18 Total Counted 100 08/04/18 05:18 Seg Neutrophils % 73.2 % (40.0-70.0) H 08/03/18 05:00 Seg Neuts % (Manual) 93.0 % (40.0-70.0) H 08/04/18 05:18 Band Neutrophils % 1.0 % 08/04/18 05:18 Lymphocytes % (Manual) 1.0 % (13.4-35.0) L 08/04/18 05:18 Reactive Lymphs % (Man) 0 % 08/04/18 05:18 Monocytes % (Manual) 4.0 % (0.0-7.3) 08/04/18 05:18 Eosinophils % (Manual) 0 % (0.0-4.3) 08/04/18 05:18 Basophils % (Manual) 1.0 % (0.0-1.8) 08/04/18 05:18 Metamyelocytes % 0 % 08/04/18 05:18 Myelocytes % 0 % 08/04/18 05:18 Promyelocytes % 0 % 08/04/18 05:18 Blast Cells % 0 % 08/04/18 05:18 Nucleated RBC % Not Reportable 08/04/18 05:18 Seg Neutrophils # 5.5 K/mm3 (1.8-7.7) 08/03/18 05:00 Seg Neutrophils # Man 5.5 K/mm3 (1.8-7.7) 08/04/18 05:18 Band Neutrophils # 0.1 K/mm3 08/04/18 05:18 Lymphocytes # (Manual) 0.1 K/mm3 (1.2-5.4) L 08/04/18 05:18 Abs React Lymphs (Man) 0.0 K/mm3 08/04/18 05:18 Monocytes # (Manual) 0.2 K/mm3 (0.0-0.8) 08/04/18 05:18 Eosinophils # (Manual) 0.0 K/mm3 (0.0-0.4) 08/04/18 05:18 Basophils # (Manual) 0.1 K/mm3 (0.0-0.1) 08/04/18 05:18 Metamyelocytes # 0.0 K/mm3 08/04/18 05:18 Myelocytes # 0.0 K/mm3 08/04/18 05:18 Promyelocytes # 0.0 K/mm3 08/04/18 05:18 Blast Cells # 0.0 K/mm3 08/04/18 05:18 WBC Morphology Not Reportable 08/04/18 05:18 Hypersegmented Neuts Not Reportable 08/04/18 05:18 Hyposegmented Neuts Not Reportable 08/04/18 05:18 Hypogranular Neuts Not Reportable 08/04/18 05:18 Smudge Cells Not Reportable 08/04/18 05:18 Toxic Granulation Not Reportable 08/04/18 05:18 Toxic Vacuolation Not Reportable 08/04/18 05:18 Dohle Bodies Not Reportable 08/04/18 05:18 Pelger-Huet Anomaly Not Reportable 08/04/18 05:18 Amanda Rods Not Reportable 08/04/18 05:18 Platelet Estimate Cons 08/04/18 05:18 Clumped Platelets Not Reportable 08/04/18 05:18 Plt Clumps, EDTA Not Reportable 08/04/18 05:18 Large Platelets Not Reportable 08/04/18 05:18 Giant Platelets Not Reportable 08/04/18 05:18 Platelet Satelliting Not Reportable 08/04/18 05:18 Plt Morphology Comment Not Reportable 08/04/18 05:18 RBC Morphology Normal 08/04/18 05:18 Dimorphic RBCs Not Reportable 08/04/18 05:18 Polychromasia Not Reportable 08/04/18 05:18 Hypochromasia Not Reportable 08/04/18 05:18 Poikilocytosis Not Reportable 08/04/18 05:18 Anisocytosis Not Reportable 08/04/18 05:18 Microcytosis Not Reportable 08/04/18 05:18 Macrocytosis Not Reportable 08/04/18 05:18 Spherocytes Not Reportable 08/04/18 05:18 Pappenheimer Bodies Not Reportable 08/04/18 05:18 Sickle Cells Not Reportable 08/04/18 05:18 Target Cells Not Reportable 08/04/18 05:18 Tear Drop Cells Not Reportable 08/04/18 05:18 Ovalocytes Not Reportable 08/04/18 05:18 Helmet Cells Not Reportable 08/04/18 05:18 [place] Bodies Not Reportable 08/04/18 05:18 [place] Rings Not Reportable 08/04/18 05:18 Krissy Cells Not Reportable 08/04/18 05:18 Bite Cells Not Reportable 08/04/18 05:18 Crenated Cell Not Reportable 08/04/18 05:18 Elliptocytes Not Reportable 08/04/18 05:18 Acanthocytes (Spur) Not Reportable 08/04/18 05:18 Rouleaux Not Reportable 08/04/18 05:18 Hemoglobin C Crystals Not Reportable 08/04/18 05:18 Schistocytes Not Reportable 08/04/18 05:18 Malaria parasites Not Reportable 08/04/18 05:18 Elias Bodies Not Reportable 08/04/18 05:18 Hem Pathologist Commnt No 08/04/18 05:18 PT 11.3 Sec. (12.2-14.9) L 08/02/18 16:44 INR 0.78 (0.87-1.13) L 08/02/18 16:44 APTT 27.5 Sec. (24.2-36.6) 08/02/18 16:44 Sodium 136 mmol/L (137-145) L 08/07/18 05:35 Potassium 4.8 mmol/L (3.6-5.0) 08/07/18 05:35 Chloride 92.2 mmol/L (98-107) L 08/07/18 05:35 Carbon Dioxide 34 mmol/L (22-30) H 08/07/18 05:35 Anion Gap 15 mmol/L 08/07/18 05:35 BUN 38 mg/dL (9-20) H 08/07/18 05:35 Creatinine 1.2 mg/dL (0.8-1.5) 08/07/18 05:35 Estimated GFR > 60 ml/min 08/07/18 05:35 BUN/Creatinine Ratio 32 % 08/07/18 05:35 Glucose 281 mg/dL (75-100) H 08/07/18 05:35 POC Glucose 228 (70-105) H 08/07/18 05:57 Hemoglobin A1c 7.3 % (4-6) H 08/02/18 Unknown Calcium 9.2 mg/dL (8.4-10.2) 08/07/18 05:35 Magnesium 1.50 mg/dL (1.7-2.3) L 08/04/18 00:17 Total Bilirubin 0.40 mg/dL (0.1-1.2) 08/03/18 05:00 AST 22 units/L (5-40) 08/03/18 05:00 ALT 22 units/L (7-56) 08/03/18 05:00 Alkaline Phosphatase 87 units/L (35-129) 08/03/18 05:00 Troponin T < 0.010 ng/mL (0.00-0.029) 08/02/18 16:44 NT-Pro-B Natriuret Pep 4912 pg/mL (0-900) H 08/02/18 16:44 Total Protein 6.4 g/dL (6.3-8.2) 08/03/18 05:00 Albumin 3.9 g/dL (3.9-5) 08/03/18 05:00 Albumin/Globulin Ratio 1.6 % 08/03/18 05:00
[2018-08-07] MEDS: XANAX PO PRN (17:05)
[2018-08-07] MEDS: LANTUS SUB-Q SCH (22:03)
[2018-08-08] MEDS: DILAUDID IV PRN ×2 (01:17→17:43)
[2018-08-08] MEDS: XANAX PO PRN ×3 (01:18→21:40)
[2018-08-08] MEDS: SOLU-Medrol IV SCH ×4 (01:18→17:43)
[2018-08-08] MEDS: PERCOCET 5/325 PO PRN ×3 (04:53→21:30)
[2018-08-08] MEDS: LASIX IV SCH ×2 (05:00→17:43)
[2018-08-08] MEDS: BROVANA NEBU IH SCH ×2 (08:39→21:03)
[2018-08-08] MEDS: PULMICORT IH SCH ×2 (08:39→21:03)
[2018-08-08] MEDS: DUONEB *Not for PRN Use IH SCH ×3 (08:41→21:03)
[2018-08-08] MEDS: NEURONTIN PO SCH ×3 (09:07→21:31)
[2018-08-08] MEDS: PEPCID PO SCH ×2 (09:07→21:31)
[2018-08-08] MEDS: GLUCOPHAGE PO SCH ×2 (09:07→17:49)
[2018-08-08] MEDS: REVATIO PO SCH ×3 (09:08→21:30)
[2018-08-08] MEDS: HumaLOG SUB-Q SCH ×4 (09:08→21:32)
[2018-08-08] MEDS: LEVAQUIN PO SCH (09:08)
[2018-08-08] MEDS: SODIUM CHLORIDE FLUSH SYRINGE 10 ML IV SCH ×2 (09:08→23:00)
[2018-08-08] MEDS: HEPARIN SUB-Q SCH ×2 (09:09→21:31)
--- NOTE | 2018-08-08 12:53 | Progress Note ---
Assessment and Plan Assessment and plan: Acute on chronic respiratory failure. Continue O2 for supportive care. ILD COPD exacerbation Cor pulmonale Severe pulmonary hypertension. Ventilation perfusion scanning to evaluate for chronic thromboembolic hypertension or CTEPH per pulmonary. Echo with low ejection fraction of 45% and severe pressures at 79 mmHg. RLL pneumonia Acute on Chronic combined CHF Morbid obesity Tobacco dependence - Patient is on IV Lasix, DuoNeb, Solu-Medrol, CPAP daily at bedtime, BIPAP as needed - D/C antibiotic - Cardiology consult appreciated - Pulmonary consult appreciated Hyperlipidemia; continue statin Diabetes mellitus type II, uncontrolled - ON ssi and increase lantus qhs DVT prophylaxis - On heparin DisPosition - patient need rehab - At discharge Dr Paredes recommend prednisolone 60mg daily for life and bactrim for PCP prophylaxis due to steroid induced immune suppression. History Interval history: No new issues overnight. Hospitalist Physical - Constitutional Vitals: Temp Pulse Resp BP Pulse Ox 97.6 F 81 18 160/99 97 08/08/18 07:36 08/08/18 10:00 08/08/18 10:00 08/08/18 07:36 08/08/18 10:00 General appearance: Present: no acute distress - EENT Eyes: Present: PERRL, EOM intact ENT: hearing intact, clear oral mucosa, dentition normal - Neck Neck: Present: supple, normal ROM - Respiratory Respiratory effort: normal Respiratory: bilateral: CTA - Cardiovascular Rhythm: regular Heart Sounds: Present: S1 & S2. Absent: gallop, rub - Extremities Extremities: no ischemia, No edema, Full ROM - Abdominal General gastrointestinal: soft, non-tender, non-distended, normal bowel sounds - Integumentary Integumentary: Present: clear, warm, dry - Neurologic Neurologic: CNII-XII intact, moves all extremities Results - Labs CBC & Chem 7: 08/04/18 05:18 08/07/18 05:35 Labs: Laboratory Last Values WBC 5.9 K/mm3 (4.5-11.0) 08/04/18 05:18 RBC 4.75 M/mm3 (3.65-5.03) 08/04/18 05:18 Hgb 15.0 gm/dl (11.8-15.2) 08/04/18 05:18 Hct 44.7 % (35.5-45.6) 08/04/18 05:18 MCV 94 fl (84-94) 08/04/18 05:18 MCH 32 pg (28-32) 08/04/18 05:18 MCHC 34 % (32-34) 08/04/18 05:18 RDW 14.1 % (13.2-15.2) 08/04/18 05:18 Plt Count 158 K/mm3 (140-440) 08/04/18 05:18 Lymph % (Auto) 12.3 % (13.4-35.0) L 08/03/18 05:00 [place] % (Auto) 10.9 % (0.0-7.3) H 08/03/18 05:00 Eos % (Auto) 2.8 % (0.0-4.3) 08/03/18 05:00 Baso % (Auto) 0.8 % (0.0-1.8) 08/03/18 05:00 Lymph # 0.9 K/mm3 (1.2-5.4) L 08/03/18 05:00 [place] # 0.8 K/mm3 (0.0-0.8) 08/03/18 05:00 Eos # 0.2 K/mm3 (0.0-0.4) 08/03/18 05:00 Baso # 0.1 K/mm3 (0.0-0.1) 08/03/18 05:00 Add Manual Diff Complete 08/04/18 05:18 Total Counted 100 08/04/18 05:18 Seg Neutrophils % 73.2 % (40.0-70.0) H 08/03/18 05:00 Seg Neuts % (Manual) 93.0 % (40.0-70.0) H 08/04/18 05:18 Band Neutrophils % 1.0 % 08/04/18 05:18 Lymphocytes % (Manual) 1.0 % (13.4-35.0) L 08/04/18 05:18 Reactive Lymphs % (Man) 0 % 08/04/18 05:18 Monocytes % (Manual) 4.0 % (0.0-7.3) 08/04/18 05:18 Eosinophils % (Manual) 0 % (0.0-4.3) 08/04/18 05:18 Basophils % (Manual) 1.0 % (0.0-1.8) 08/04/18 05:18 Metamyelocytes % 0 % 08/04/18 05:18 Myelocytes % 0 % 08/04/18 05:18 Promyelocytes % 0 % 08/04/18 05:18 Blast Cells % 0 % 08/04/18 05:18 Nucleated RBC % Not Reportable 08/04/18 05:18 Seg Neutrophils # 5.5 K/mm3 (1.8-7.7) 08/03/18 05:00 Seg Neutrophils # Man 5.5 K/mm3 (1.8-7.7) 08/04/18 05:18 Band Neutrophils # 0.1 K/mm3 08/04/18 05:18 Lymphocytes # (Manual) 0.1 K/mm3 (1.2-5.4) L 08/04/18 05:18 Abs React Lymphs (Man) 0.0 K/mm3 08/04/18 05:18 Monocytes # (Manual) 0.2 K/mm3 (0.0-0.8) 08/04/18 05:18 Eosinophils # (Manual) 0.0 K/mm3 (0.0-0.4) 08/04/18 05:18 Basophils # (Manual) 0.1 K/mm3 (0.0-0.1) 08/04/18 05:18 Metamyelocytes # 0.0 K/mm3 08/04/18 05:18 Myelocytes # 0.0 K/mm3 08/04/18 05:18 Promyelocytes # 0.0 K/mm3 08/04/18 05:18 Blast Cells # 0.0 K/mm3 08/04/18 05:18 WBC Morphology Not Reportable 08/04/18 05:18 Hypersegmented Neuts Not Reportable 08/04/18 05:18 Hyposegmented Neuts Not Reportable 08/04/18 05:18 Hypogranular Neuts Not Reportable 08/04/18 05:18 Smudge Cells Not Reportable 08/04/18 05:18 Toxic Granulation Not Reportable 08/04/18 05:18 Toxic Vacuolation Not Reportable 08/04/18 05:18 Dohle Bodies Not Reportable 08/04/18 05:18 Pelger-Huet Anomaly Not Reportable 08/04/18 05:18 Amanda Rods Not Reportable 08/04/18 05:18 Platelet Estimate Cons 08/04/18 05:18 Clumped Platelets Not Reportable 08/04/18 05:18 Plt Clumps, EDTA Not Reportable 08/04/18 05:18 Large Platelets Not Reportable 08/04/18 05:18 Giant Platelets Not Reportable 08/04/18 05:18 Platelet Satelliting Not Reportable 08/04/18 05:18 Plt Morphology Comment Not Reportable 08/04/18 05:18 RBC Morphology Normal 08/04/18 05:18 Dimorphic RBCs Not Reportable 08/04/18 05:18 Polychromasia Not Reportable 08/04/18 05:18 Hypochromasia Not Reportable 08/04/18 05:18 Poikilocytosis Not Reportable 08/04/18 05:18 Anisocytosis Not Reportable 08/04/18 05:18 Microcytosis Not Reportable 08/04/18 05:18 Macrocytosis Not Reportable 08/04/18 05:18 Spherocytes Not Reportable 08/04/18 05:18 Pappenheimer Bodies Not Reportable 08/04/18 05:18 Sickle Cells Not Reportable 08/04/18 05:18 Target Cells Not Reportable 08/04/18 05:18 Tear Drop Cells Not Reportable 08/04/18 05:18 Ovalocytes Not Reportable 08/04/18 05:18 Helmet Cells Not Reportable 08/04/18 05:18 [place] Bodies Not Reportable 08/04/18 05:18 [place] Rings Not Reportable 08/04/18 05:18 Krissy Cells Not Reportable 08/04/18 05:18 Bite Cells Not Reportable 08/04/18 05:18 Crenated Cell Not Reportable 08/04/18 05:18 Elliptocytes Not Reportable 08/04/18 05:18 Acanthocytes (Spur) Not Reportable 08/04/18 05:18 Rouleaux Not Reportable 08/04/18 05:18 Hemoglobin C Crystals Not Reportable 08/04/18 05:18 Schistocytes Not Reportable 08/04/18 05:18 Malaria parasites Not Reportable 08/04/18 05:18 Elias Bodies Not Reportable 08/04/18 05:18 Hem Pathologist Commnt No 08/04/18 05:18 PT 11.3 Sec. (12.2-14.9) L 08/02/18 16:44 INR 0.78 (0.87-1.13) L 08/02/18 16:44 APTT 27.5 Sec. (24.2-36.6) 08/02/18 16:44 Sodium 136 mmol/L (137-145) L 08/07/18 05:35 Potassium 4.8 mmol/L (3.6-5.0) 08/07/18 05:35 Chloride 92.2 mmol/L (98-107) L 08/07/18 05:35 Carbon Dioxide 34 mmol/L (22-30) H 08/07/18 05:35 Anion Gap 15 mmol/L 08/07/18 05:35 BUN 38 mg/dL (9-20) H 08/07/18 05:35 Creatinine 1.2 mg/dL (0.8-1.5) 08/07/18 05:35 Estimated GFR > 60 ml/min 08/07/18 05:35 BUN/Creatinine Ratio 32 % 08/07/18 05:35 Glucose 281 mg/dL (75-100) H 08/07/18 05:35 POC Glucose 256 (70-105) H 08/08/18 06:11 Hemoglobin A1c 7.3 % (4-6) H 08/02/18 Unknown Calcium 9.2 mg/dL (8.4-10.2) 08/07/18 05:35 Magnesium 1.50 mg/dL (1.7-2.3) L 08/04/18 00:17 Total Bilirubin 0.40 mg/dL (0.1-1.2) 08/03/18 05:00 AST 22 units/L (5-40) 08/03/18 05:00 ALT 22 units/L (7-56) 08/03/18 05:00 Alkaline Phosphatase 87 units/L (35-129) 08/03/18 05:00 Troponin T < 0.010 ng/mL (0.00-0.029) 08/02/18 16:44 NT-Pro-B Natriuret Pep 4912 pg/mL (0-900) H 08/02/18 16:44 Total Protein 6.4 g/dL (6.3-8.2) 08/03/18 05:00 Albumin 3.9 g/dL (3.9-5) 08/03/18 05:00 Albumin/Globulin Ratio 1.6 % 08/03/18 05:00
--- NOTE | 2018-08-08 13:13 | Progress Note ---
Assessment and Plan Systolic heart failure exacerbation episode. Severe pulmonary hypertension. Echo with low ejection fraction of 45% and severe pressures at 79 mmHg. Consistent with group 2 and possibly group 3. She will be out of proportion but unable to clarify this with a right heart catheterization. Tobacco abuse COPD Recommendations Continue oxygen support Avoid hypoxemia at nighttime. The patient reports some history of snoring but denies prior treatment for sleep apnea. 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 Since echo suggests significant group 2 PHT changes it is unclear of the benefits of Revatio at this point. I will probably optimize PAWP pressures first clinically or reassess with right heart catheterization and then determine need/benefit of Revatio. Also it is unclear if his beneficial in setting of ILD. Should not be on prolonged steroids treatment without supervision or reevaluation, preferably on the next 3-4 weeks. 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 Consult with current oxygen. No chest pain Objective Vital Signs - 12hr 08/08/18 08/08/18 08/08/18 01:17 04:33 07:36 Temperature 98.3 F 97.6 F Pulse Rate 84 81 Pulse Rate [ Apical] Pulse Rate [ Left Radial] Pulse Rate [ Right Radial] Respiratory 20 16 18 Rate Blood Pressure 133/80 160/99 O2 Sat by Pulse 86 95 Oximetry 08/08/18 10:00 Temperature Pulse Rate Pulse Rate [ 81 Apical] Pulse Rate [ 81 Left Radial] Pulse Rate [ 81 Right Radial] Respiratory 18 Rate Blood Pressure O2 Sat by Pulse 97 Oximetry Constitutional: no acute distress, alert Eyes: icteric ENT: oropharynx moist Neck: supple Effort: normal Ascultation: Bilateral: clear, diminished breath sounds Percussion: Bilateral: not dull Tactile fremitus: Bilateral: normal Cardiovascular: regular rate and rhythm Gastrointestinal: normoactive bowel sounds, soft, non-tender Extremities: no edema, cyanosis Neurologic: normal mental status Psychiatric: mood appropriate CBC and BMP: 08/04/18 05:18 08/07/18 05:35 ABG, PT/INR, D-dimer: PT/INR, D-dimer PT 11.3 Sec. (12.2-14.9) L 08/02/18 16:44 INR 0.78 (0.87-1.13) L 08/02/18 16:44 Abnormal lab findings: Abnormal Labs 08/02/18 08/02/18 08/02/18 16:25 16:25 16:44 Hgb 15.3 H Hct 45.8 H MCV 95 H Lymph % (Auto) 6.7 L [place] % (Auto) 8.8 H Lymph # 0.5 L Seg Neutrophils % 82.5 H Seg Neuts % (Manual) Lymphocytes % (Manual) Lymphocytes # (Manual) PT 11.3 L INR 0.78 L Sodium 134 L Potassium Chloride 97.8 L Carbon Dioxide BUN Creatinine Glucose 126 H POC Glucose Hemoglobin A1c Magnesium NT-Pro-B Natriuret Pep 08/02/18 08/02/18 08/03/18 16:44 Unknown 05:00 Hgb Hct MCV 95 H Lymph % (Auto) 12.3 L [place] % (Auto) 10.9 H Lymph # 0.9 L Seg Neutrophils % 73.2 H Seg Neuts % (Manual) Lymphocytes % (Manual) Lymphocytes # (Manual) PT INR Sodium Potassium Chloride Carbon Dioxide BUN Creatinine Glucose POC Glucose Hemoglobin A1c 7.3 H Magnesium NT-Pro-B Natriuret Pep 4912 H 08/03/18 08/03/18 08/04/18 05:00 21:46 00:17 Hgb Hct MCV Lymph % (Auto) [place] % (Auto) Lymph # Seg Neutrophils % Seg Neuts % (Manual) Lymphocytes % (Manual) Lymphocytes # (Manual) PT INR Sodium Potassium Chloride Carbon Dioxide BUN Creatinine 0.7 L Glucose POC Glucose 207 H Hemoglobin A1c Magnesium 1.50 L NT-Pro-B Natriuret Pep 08/04/18 08/04/18 08/04/18 05:18 05:18 06:32 Hgb Hct MCV Lymph % (Auto) [place] % (Auto) Lymph # Seg Neutrophils % Seg Neuts % (Manual) 93.0 H Lymphocytes % (Manual) 1.0 L Lymphocytes # (Manual) 0.1 L PT INR Sodium 134 L Potassium Chloride 91.9 L Carbon Dioxide BUN Creatinine 0.7 L Glucose 243 H POC Glucose 216 H Hemoglobin A1c Magnesium NT-Pro-B Natriuret Pep 08/04/18 08/04/18 08/04/18 06:48 12:51 21:23 Hgb Hct MCV Lymph % (Auto) [place] % (Auto) Lymph # Seg Neutrophils % Seg Neuts % (Manual) Lymphocytes % (Manual) Lymphocytes # (Manual) PT INR Sodium Potassium Chloride Carbon Dioxide BUN Creatinine Glucose POC Glucose 220 H 202 H 278 H Hemoglobin A1c Magnesium NT-Pro-B Natriuret Pep 08/05/18 08/05/18 08/05/18 06:33 10:40 15:20 Hgb Hct MCV Lymph % (Auto) [place] % (Auto) Lymph # Seg Neutrophils % Seg Neuts % (Manual) Lymphocytes % (Manual) Lymphocytes # (Manual) PT INR Sodium Potassium Chloride Carbon Dioxide BUN Creatinine Glucose POC Glucose 266 H 233 H 241 H Hemoglobin A1c Magnesium NT-Pro-B Natriuret Pep 08/06/18 08/06/18 08/06/18 00:01 05:49 11:14 Hgb Hct MCV Lymph % (Auto) [place] % (Auto) Lymph # Seg Neutrophils % Seg Neuts % (Manual) Lymphocytes % (Manual) Lymphocytes # (Manual) PT INR Sodium 132 L Potassium 5.5 H Chloride 90.1 L Carbon Dioxide 31 H BUN 27 H Creatinine Glucose 283 H POC Glucose 334 H 266 H Hemoglobin A1c Magnesium NT-Pro-B Natriuret Pep 08/06/18 08/06/18 08/07/18 16:49 21:22 05:35 Hgb Hct MCV Lymph % (Auto) [place] % (Auto) Lymph # Seg Neutrophils % Seg Neuts % (Manual) Lymphocytes % (Manual) Lymphocytes # (Manual) PT INR Sodium 136 L Potassium Chloride 92.2 L Carbon Dioxide 34 H BUN 38 H Creatinine Glucose 281 H POC Glucose 297 H 164 H Hemoglobin A1c Magnesium NT-Pro-B Natriuret Pep 08/07/18 08/07/18 08/07/18 05:57 11:44 16:53 Hgb Hct MCV Lymph % (Auto) [place] % (Auto) Lymph # Seg Neutrophils % Seg Neuts % (Manual) Lymphocytes % (Manual) Lymphocytes # (Manual) PT INR Sodium Potassium Chloride Carbon Dioxide BUN Creatinine Glucose POC Glucose 228 H 213 H 171 H Hemoglobin A1c Magnesium NT-Pro-B Natriuret Pep 08/07/18 08/08/18 08/08/18 21:53 06:11 12:02 Hgb Hct MCV Lymph % (Auto) [place] % (Auto) Lymph # Seg Neutrophils % Seg Neuts % (Manual) Lymphocytes % (Manual) Lymphocytes # (Manual) PT INR Sodium Potassium Chloride Carbon Dioxide BUN Creatinine Glucose POC Glucose 349 H 256 H 291 H Hemoglobin A1c Magnesium NT-Pro-B Natriuret Pep
[2018-08-08] MEDS: LANTUS SUB-Q SCH (21:33)
[2018-08-09] MEDS: SOLU-Medrol IV SCH ×4 (01:19→18:10)
[2018-08-09] MEDS: PERCOCET 5/325 PO PRN ×4 (03:11→22:00)
[2018-08-09] MEDS: LASIX IV SCH ×2 (06:04→18:09)
[2018-08-09] MEDS: PEPCID PO SCH ×2 (09:06→22:00)
[2018-08-09] MEDS: LEVAQUIN PO SCH (09:07)
[2018-08-09] MEDS: NEURONTIN PO SCH ×3 (09:07→19:36)
[2018-08-09] MEDS: GLUCOPHAGE PO SCH ×2 (09:08→18:12)
[2018-08-09] MEDS: HumaLOG SUB-Q SCH ×4 (09:08→22:07)
[2018-08-09] MEDS: REVATIO PO SCH ×3 (09:09→19:36)
[2018-08-09] MEDS: SODIUM CHLORIDE FLUSH SYRINGE 10 ML IV SCH ×2 (09:09→22:00)
[2018-08-09] MEDS: HEPARIN SUB-Q SCH ×2 (09:09→22:01)
[2018-08-09] MEDS: XANAX PO PRN ×2 (09:15→22:00)
[2018-08-09] MEDS: PULMICORT IH SCH ×2 (09:33→21:03)
[2018-08-09] MEDS: BROVANA NEBU IH SCH ×2 (09:33→21:03)
[2018-08-09] MEDS: DUONEB *Not for PRN Use IH SCH ×3 (09:33→21:04)
--- NOTE | 2018-08-09 10:59 | Progress Note ---
Assessment and Plan Assessment and plan: Acute on chronic respiratory failure. Continue O2 for supportive care. Etiology multifactorial secondary to COPD, CHF, ILD, OHS/DUANE, severe pulmonary hypertension and cor pulmonale. - Patient is on IV Lasix, DuoNeb, Solu-Medrol, CPAP daily at bedtime, BIPAP as needed - Cardiology consult appreciated - Pulmonary consult appreciated ILD. Per pulmonary ? Revatio COPD exacerbation. Continue bronchodilators and steroid treatment Cor pulmonale. Per pulmonary Severe pulmonary hypertension. Ventilation perfusion scanning to evaluate for chronic thromboembolic hypertension or CTEPH per pulmonary. Echo with low ejection fraction of 45% and severe pressures at 79 mmHg. RLL pneumonia. 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 History Interval history: No new issues overnight. Hospitalist Physical - Constitutional Vitals: Temp Pulse Resp BP Pulse Ox 97.9 F 94 H 18 139/84 100 08/09/18 09:33 08/09/18 09:45 08/09/18 09:45 08/09/18 09:33 08/09/18 09:39 General appearance: Present: no acute distress - EENT Eyes: Present: PERRL, EOM intact ENT: hearing intact, clear oral mucosa, dentition normal - Neck Neck: Present: supple, normal ROM - Respiratory Respiratory effort: normal Respiratory: bilateral: CTA - Cardiovascular Rhythm: regular Heart Sounds: Present: S1 & S2. Absent: gallop, rub - Extremities Extremities: no ischemia, No edema, Full ROM - Abdominal General gastrointestinal: soft, non-tender, non-distended, normal bowel sounds - Integumentary Integumentary: Present: clear, warm, dry - Neurologic Neurologic: CNII-XII intact, moves all extremities Results - Labs CBC & Chem 7: 08/04/18 05:18 08/07/18 05:35 Labs: Laboratory Last Values WBC 5.9 K/mm3 (4.5-11.0) 08/04/18 05:18 RBC 4.75 M/mm3 (3.65-5.03) 08/04/18 05:18 Hgb 15.0 gm/dl (11.8-15.2) 08/04/18 05:18 Hct 44.7 % (35.5-45.6) 08/04/18 05:18 MCV 94 fl (84-94) 08/04/18 05:18 MCH 32 pg (28-32) 08/04/18 05:18 MCHC 34 % (32-34) 08/04/18 05:18 RDW 14.1 % (13.2-15.2) 08/04/18 05:18 Plt Count 158 K/mm3 (140-440) 08/04/18 05:18 Lymph % (Auto) 12.3 % (13.4-35.0) L 08/03/18 05:00 [place] % (Auto) 10.9 % (0.0-7.3) H 08/03/18 05:00 Eos % (Auto) 2.8 % (0.0-4.3) 08/03/18 05:00 Baso % (Auto) 0.8 % (0.0-1.8) 08/03/18 05:00 Lymph # 0.9 K/mm3 (1.2-5.4) L 08/03/18 05:00 [place] # 0.8 K/mm3 (0.0-0.8) 08/03/18 05:00 Eos # 0.2 K/mm3 (0.0-0.4) 08/03/18 05:00 Baso # 0.1 K/mm3 (0.0-0.1) 08/03/18 05:00 Add Manual Diff Complete 08/04/18 05:18 Total Counted 100 08/04/18 05:18 Seg Neutrophils % 73.2 % (40.0-70.0) H 08/03/18 05:00 Seg Neuts % (Manual) 93.0 % (40.0-70.0) H 08/04/18 05:18 Band Neutrophils % 1.0 % 08/04/18 05:18 Lymphocytes % (Manual) 1.0 % (13.4-35.0) L 08/04/18 05:18 Reactive Lymphs % (Man) 0 % 08/04/18 05:18 Monocytes % (Manual) 4.0 % (0.0-7.3) 08/04/18 05:18 Eosinophils % (Manual) 0 % (0.0-4.3) 08/04/18 05:18 Basophils % (Manual) 1.0 % (0.0-1.8) 08/04/18 05:18 Metamyelocytes % 0 % 08/04/18 05:18 Myelocytes % 0 % 08/04/18 05:18 Promyelocytes % 0 % 08/04/18 05:18 Blast Cells % 0 % 08/04/18 05:18 Nucleated RBC % Not Reportable 08/04/18 05:18 Seg Neutrophils # 5.5 K/mm3 (1.8-7.7) 08/03/18 05:00 Seg Neutrophils # Man 5.5 K/mm3 (1.8-7.7) 08/04/18 05:18 Band Neutrophils # 0.1 K/mm3 08/04/18 05:18 Lymphocytes # (Manual) 0.1 K/mm3 (1.2-5.4) L 08/04/18 05:18 Abs React Lymphs (Man) 0.0 K/mm3 08/04/18 05:18 Monocytes # (Manual) 0.2 K/mm3 (0.0-0.8) 08/04/18 05:18 Eosinophils # (Manual) 0.0 K/mm3 (0.0-0.4) 08/04/18 05:18 Basophils # (Manual) 0.1 K/mm3 (0.0-0.1) 08/04/18 05:18 Metamyelocytes # 0.0 K/mm3 08/04/18 05:18 Myelocytes # 0.0 K/mm3 08/04/18 05:18 Promyelocytes # 0.0 K/mm3 08/04/18 05:18 Blast Cells # 0.0 K/mm3 08/04/18 05:18 WBC Morphology Not Reportable 08/04/18 05:18 Hypersegmented Neuts Not Reportable 08/04/18 05:18 Hyposegmented Neuts Not Reportable 08/04/18 05:18 Hypogranular Neuts Not Reportable 08/04/18 05:18 Smudge Cells Not Reportable 08/04/18 05:18 Toxic Granulation Not Reportable 08/04/18 05:18 Toxic Vacuolation Not Reportable 08/04/18 05:18 Dohle Bodies Not Reportable 08/04/18 05:18 Pelger-Huet Anomaly Not Reportable 08/04/18 05:18 Amanda Rods Not Reportable 08/04/18 05:18 Platelet Estimate Cons 08/04/18 05:18 Clumped Platelets Not Reportable 08/04/18 05:18 Plt Clumps, EDTA Not Reportable 08/04/18 05:18 Large Platelets Not Reportable 08/04/18 05:18 Giant Platelets Not Reportable 08/04/18 05:18 Platelet Satelliting Not Reportable 08/04/18 05:18 Plt Morphology Comment Not Reportable 08/04/18 05:18 RBC Morphology Normal 08/04/18 05:18 Dimorphic RBCs Not Reportable 08/04/18 05:18 Polychromasia Not Reportable 08/04/18 05:18 Hypochromasia Not Reportable 08/04/18 05:18 Poikilocytosis Not Reportable 08/04/18 05:18 Anisocytosis Not Reportable 08/04/18 05:18 Microcytosis Not Reportable 08/04/18 05:18 Macrocytosis Not Reportable 08/04/18 05:18 Spherocytes Not Reportable 08/04/18 05:18 Pappenheimer Bodies Not Reportable 08/04/18 05:18 Sickle Cells Not Reportable 08/04/18 05:18 Target Cells Not Reportable 08/04/18 05:18 Tear Drop Cells Not Reportable 08/04/18 05:18 Ovalocytes Not Reportable 08/04/18 05:18 Helmet Cells Not Reportable 08/04/18 05:18 Burton-Bernice Bodies Not Reportable 08/04/18 05:18 [place] Rings Not Reportable 08/04/18 05:18 [place] Cells Not Reportable 08/04/18 05:18 Bite Cells Not Reportable 08/04/18 05:18 Crenated Cell Not Reportable 08/04/18 05:18 Elliptocytes Not Reportable 08/04/18 05:18 Acanthocytes (Spur) Not Reportable 08/04/18 05:18 Rouleaux Not Reportable 08/04/18 05:18 Hemoglobin C Crystals Not Reportable 08/04/18 05:18 Schistocytes Not Reportable 08/04/18 05:18 Malaria parasites Not Reportable 08/04/18 05:18 Elias Bodies Not Reportable 08/04/18 05:18 Hem Pathologist Commnt No 08/04/18 05:18 PT 11.3 Sec. (12.2-14.9) L 08/02/18 16:44 INR 0.78 (0.87-1.13) L 08/02/18 16:44 APTT 27.5 Sec. (24.2-36.6) 08/02/18 16:44 Sodium 136 mmol/L (137-145) L 08/07/18 05:35 Potassium 4.8 mmol/L (3.6-5.0) 08/07/18 05:35 Chloride 92.2 mmol/L (98-107) L 08/07/18 05:35 Carbon Dioxide 34 mmol/L (22-30) H 08/07/18 05:35 Anion Gap 15 mmol/L 08/07/18 05:35 BUN 38 mg/dL (9-20) H 08/07/18 05:35 Creatinine 1.2 mg/dL (0.8-1.5) 08/07/18 05:35 Estimated GFR > 60 ml/min 08/07/18 05:35 BUN/Creatinine Ratio 32 % 08/07/18 05:35 Glucose 281 mg/dL (75-100) H 08/07/18 05:35 POC Glucose 225 (70-105) H 08/09/18 05:22 Hemoglobin A1c 7.3 % (4-6) H 08/02/18 Unknown Calcium 9.2 mg/dL (8.4-10.2) 08/07/18 05:35 Magnesium 1.50 mg/dL (1.7-2.3) L 08/04/18 00:17 Total Bilirubin 0.40 mg/dL (0.1-1.2) 08/03/18 05:00 AST 22 units/L (5-40) 08/03/18 05:00 ALT 22 units/L (7-56) 08/03/18 05:00 Alkaline Phosphatase 87 units/L (35-129) 08/03/18 05:00 Troponin T < 0.010 ng/mL (0.00-0.029) 08/02/18 16:44 NT-Pro-B Natriuret Pep 4912 pg/mL (0-900) H 08/02/18 16:44 Total Protein 6.4 g/dL (6.3-8.2) 08/03/18 05:00 Albumin 3.9 g/dL (3.9-5) 08/03/18 05:00 Albumin/Globulin Ratio 1.6 % 08/03/18 05:00
--- NOTE | 2018-08-09 12:30 | Event Note ---
Date: 08/09/18 Came to see pt, reportedly out on study/test. Will see back when available for review.
--- NOTE | 2018-08-09 13:01 | XRay Report ---
AP CHEST: HISTORY: Shortness of breath, chest pain AP view of the chest demonstrates a normal mediastinal and cardiac contour with clear lungs and normal bony and soft tissue structures. IMPRESSION: No acute cardiopulmonary process identified.
--- NOTE | 2018-08-09 13:01 | Nuclear Medicine Report ---
VENTILATION/PERFUSION LUNG SCAN: 08/09/18 CLINICAL: Shortness of breath. TECHNIQUE: 15.0 mCi of xenon-133 was administered by aerosol and 5.0 mCi of technetium 99m MAA was administered intravenously. Comparison is made to a same day chest x-ray. FINDINGS: Inhalation of Xenon gas demonstrates a normal distribution of the activity throughout both lungs. The wash out phases show moderate bilateral predominantly lower lobe retention of activity. After injection of Technetium 99m macroaggregated albumin gamma camera imaging of the lungs in multiple projections demonstrates normal pulmonary contours. There is asymmetrically decreased perfusion of the upper lobes when compared to the lower lobes. Bilateral lower lobe perfusion is relatively homogeneous. No suspicious focal areas of perfusion deficiency are identified. IMPRESSION: Low probability for pulmonary embolus. Decreased bilateral upper lobe perfusion is likely related to COPD.
[2018-08-09] MEDS: LANTUS SUB-Q SCH (22:05)
[2018-08-10] MEDS: DILAUDID IV PRN ×5 (03:12→17:54)
[2018-08-10 06:31] LABS: Hematocrit 47.6 % (35.5-45.6); Hemoglobin 15.9 gm/dl (11.8-15.2); Mean Corpuscular HGB Conc 33 % (32-34); Mean Corpuscular Volume 93 fl (84-94); Platelet Count 189 K/mm3 (140-440); Red Blood Count 5.11 M/mm3 (3.65-5.03); Red Cell Distribution Width 13.5 % (13.2-15.2)
[2018-08-10 06:46] LABS: BUN/Creatinine Ratio 34; Blood Urea Nitrogen 34 mg/dL (9-20); Calcium 8.7 mg/dL (8.4-10.2); Hemolysis Index 34
[2018-08-10] MEDS: SOLU-Medrol IV SCH ×4 (06:50→17:53)
[2018-08-10] MEDS: LASIX IV SCH ×2 (06:50→17:54)
[2018-08-10 07:21] LABS: Band Neutrophils # (Manual) 0.5 K/mm3; Basophils % (Manual) 0 % (0.0-1.8); Eosinophils % (Manual) 0 % (0.0-4.3); RBC Morphology Normal; Total Cells Counted 100
[2018-08-10] MEDS: BROVANA NEBU IH SCH ×2 (08:33→19:29)
[2018-08-10] MEDS: PULMICORT IH SCH ×2 (08:33→19:29)
[2018-08-10] MEDS: DUONEB *Not for PRN Use IH SCH ×4 (08:33→19:29)
[2018-08-10] MEDS: HumaLOG SUB-Q SCH ×4 (08:36→21:46)
[2018-08-10] MEDS: XANAX PO PRN ×2 (08:36→21:41)
[2018-08-10] MEDS: NEURONTIN PO SCH ×3 (09:11→21:41)
[2018-08-10] MEDS: LEVAQUIN PO SCH (09:11)
[2018-08-10] MEDS: HEPARIN SUB-Q SCH ×2 (09:12→21:41)
[2018-08-10] MEDS: GLUCOPHAGE PO SCH ×2 (09:12→17:53)
[2018-08-10] MEDS: PEPCID PO SCH ×2 (09:12→21:41)
[2018-08-10] MEDS: REVATIO PO SCH ×3 (09:12→21:41)
--- NOTE | 2018-08-10 11:29 | Progress Note ---
Assessment and Plan Systolic heart failure exacerbation episode. Severe pulmonary hypertension. -Echo with low ejection fraction of 45% and severe pressures at 79 mmHg. Consistent with group 2 and possibly group 3. No RHC data. -Ventilation/perfusion scan consistent with COPD, no evidence of chronic thrombo-embolic pulmonary hypertension Tobacco abuse COPD Recommendations Continue oxygen support Avoid hypoxemia at nighttime. The patient reports some history of snoring but denies prior treatment for sleep apnea. 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 Complaint of chest tightness and discomfort for associated with coughing spells and wheezing. We'll increase MARYCHUY/STEPHANIE nebulizer to q 4-6 hr ( and monitor tolerance) and steroid therapy. Subjective Date of service: 08/10/18 Interval history: No events overnight. Consult with current oxygen. No chest pain Objective Vital Signs - 12hr 08/10/18 08/10/18 04:18 08:52 Temperature 98.0 F 97.5 F L Pulse Rate 72 83 Respiratory 18 20 Rate Blood Pressure 137/80 165/88 O2 Sat by Pulse 95 90 Oximetry Constitutional: no acute distress, alert Eyes: icteric, other (OS eyelid drop) ENT: oropharynx moist Neck: supple, no JVD Effort: normal Ascultation: Bilateral: clear, diminished breath sounds, wheezes, rales Percussion: Bilateral: not dull Tactile fremitus: Bilateral: normal Cardiovascular: regular rate and rhythm Gastrointestinal: normoactive bowel sounds, soft, non-tender Extremities: no edema, cyanosis Neurologic: normal mental status Psychiatric: mood appropriate CBC and BMP: 08/10/18 06:02 08/10/18 06:02 ABG, PT/INR, D-dimer: PT/INR, D-dimer PT 11.3 Sec. (12.2-14.9) L 08/02/18 16:44 INR 0.78 (0.87-1.13) L 08/02/18 16:44 Abnormal lab findings: Abnormal Labs 08/02/18 08/02/18 08/02/18 16:25 16:25 16:44 RBC Hgb 15.3 H Hct 45.8 H MCV 95 H Lymph % (Auto) 6.7 L [place] % (Auto) 8.8 H Lymph # 0.5 L Seg Neutrophils % 82.5 H Seg Neuts % (Manual) Lymphocytes % (Manual) Lymphocytes # (Manual) PT 11.3 L INR 0.78 L Sodium 134 L Potassium Chloride 97.8 L Carbon Dioxide BUN Creatinine Glucose 126 H POC Glucose Hemoglobin A1c Magnesium NT-Pro-B Natriuret Pep 08/02/18 08/02/18 08/03/18 16:44 Unknown 05:00 RBC Hgb Hct MCV 95 H Lymph % (Auto) 12.3 L [place] % (Auto) 10.9 H Lymph # 0.9 L Seg Neutrophils % 73.2 H Seg Neuts % (Manual) Lymphocytes % (Manual) Lymphocytes # (Manual) PT INR Sodium Potassium Chloride Carbon Dioxide BUN Creatinine Glucose POC Glucose Hemoglobin A1c 7.3 H Magnesium NT-Pro-B Natriuret Pep 4912 H 08/03/18 08/03/18 08/04/18 05:00 21:46 00:17 RBC Hgb Hct MCV Lymph % (Auto) [place] % (Auto) Lymph # Seg Neutrophils % Seg Neuts % (Manual) Lymphocytes % (Manual) Lymphocytes # (Manual) PT INR Sodium Potassium Chloride Carbon Dioxide BUN Creatinine 0.7 L Glucose POC Glucose 207 H Hemoglobin A1c Magnesium 1.50 L NT-Pro-B Natriuret Pep 08/04/18 08/04/18 08/04/18 05:18 05:18 06:32 RBC Hgb Hct MCV Lymph % (Auto) [place] % (Auto) Lymph # Seg Neutrophils % Seg Neuts % (Manual) 93.0 H Lymphocytes % (Manual) 1.0 L Lymphocytes # (Manual) 0.1 L PT INR Sodium 134 L Potassium Chloride 91.9 L Carbon Dioxide BUN Creatinine 0.7 L Glucose 243 H POC Glucose 216 H Hemoglobin A1c Magnesium NT-Pro-B Natriuret Pep 08/04/18 08/04/18 08/04/18 06:48 12:51 21:23 RBC Hgb Hct MCV Lymph % (Auto) [place] % (Auto) Lymph # Seg Neutrophils % Seg Neuts % (Manual) Lymphocytes % (Manual) Lymphocytes # (Manual) PT INR Sodium Potassium Chloride Carbon Dioxide BUN Creatinine Glucose POC Glucose 220 H 202 H 278 H Hemoglobin A1c Magnesium NT-Pro-B Natriuret Pep 08/05/18 08/05/18 08/05/18 06:33 10:40 15:20 RBC Hgb Hct MCV Lymph % (Auto) [place] % (Auto) Lymph # Seg Neutrophils % Seg Neuts % (Manual) Lymphocytes % (Manual) Lymphocytes # (Manual) PT INR Sodium Potassium Chloride Carbon Dioxide BUN Creatinine Glucose POC Glucose 266 H 233 H 241 H Hemoglobin A1c Magnesium NT-Pro-B Natriuret Pep 08/06/18 08/06/18 08/06/18 00:01 05:49 11:14 RBC Hgb Hct MCV Lymph % (Auto) [place] % (Auto) Lymph # Seg Neutrophils % Seg Neuts % (Manual) Lymphocytes % (Manual) Lymphocytes # (Manual) PT INR Sodium 132 L Potassium 5.5 H Chloride 90.1 L Carbon Dioxide 31 H BUN 27 H Creatinine Glucose 283 H POC Glucose 334 H 266 H Hemoglobin A1c Magnesium NT-Pro-B Natriuret Pep 08/06/18 08/06/18 08/07/18 16:49 21:22 05:35 RBC Hgb Hct MCV Lymph % (Auto) [place] % (Auto) Lymph # Seg Neutrophils % Seg Neuts % (Manual) Lymphocytes % (Manual) Lymphocytes # (Manual) PT INR Sodium 136 L Potassium Chloride 92.2 L Carbon Dioxide 34 H BUN 38 H Creatinine Glucose 281 H POC Glucose 297 H 164 H Hemoglobin A1c Magnesium NT-Pro-B Natriuret Pep 08/07/18 08/07/18 08/07/18 05:57 11:44 16:53 RBC Hgb Hct MCV Lymph % (Auto) [place] % (Auto) Lymph # Seg Neutrophils % Seg Neuts % (Manual) Lymphocytes % (Manual) Lymphocytes # (Manual) PT INR Sodium Potassium Chloride Carbon Dioxide BUN Creatinine Glucose POC Glucose 228 H 213 H 171 H Hemoglobin A1c Magnesium NT-Pro-B Natriuret Pep 08/07/18 08/08/18 08/08/18 21:53 06:11 12:02 RBC Hgb Hct MCV Lymph % (Auto) [place] % (Auto) Lymph # Seg Neutrophils % Seg Neuts % (Manual) Lymphocytes % (Manual) Lymphocytes # (Manual) PT INR Sodium Potassium Chloride Carbon Dioxide BUN Creatinine Glucose POC Glucose 349 H 256 H 291 H Hemoglobin A1c Magnesium NT-Pro-B Natriuret Pep 08/08/18 08/08/18 08/09/18 16:50 20:40 05:22 RBC Hgb Hct MCV Lymph % (Auto) [place] % (Auto) Lymph # Seg Neutrophils % Seg Neuts % (Manual) Lymphocytes % (Manual) Lymphocytes # (Manual) PT INR Sodium Potassium Chloride Carbon Dioxide BUN Creatinine Glucose POC Glucose 209 H 217 H 225 H Hemoglobin A1c Magnesium NT-Pro-B Natriuret Pep 08/09/18 08/09/18 08/09/18 11:45 17:26 21:52 RBC Hgb Hct MCV Lymph % (Auto) [place] % (Auto) Lymph # Seg Neutrophils % Seg Neuts % (Manual) Lymphocytes % (Manual) Lymphocytes # (Manual) PT INR Sodium Potassium Chloride Carbon Dioxide BUN Creatinine Glucose POC Glucose 293 H 280 H 316 H Hemoglobin A1c Magnesium NT-Pro-B Natriuret Pep 08/10/18 08/10/18 08/10/18 06:02 06:02 06:11 RBC 5.11 H Hgb 15.9 H Hct 47.6 H MCV Lymph % (Auto) [place] % (Auto) Lymph # Seg Neutrophils % Seg Neuts % (Manual) 91.0 H Lymphocytes % (Manual) 2.0 L Lymphocytes # (Manual) 0.2 L PT INR Sodium 133 L Potassium Chloride 89.1 L Carbon Dioxide 33 H BUN 34 H Creatinine Glucose 323 H POC Glucose 281 H Hemoglobin A1c Magnesium NT-Pro-B Natriuret Pep
--- NOTE | 2018-08-10 12:36 | Progress Note ---
Assessment and Plan Assessment and plan: Acute on chronic respiratory failure. Continue O2 for supportive care. Etiology multifactorial secondary to COPD, CHF, ILD, OHS/DUANE, severe pulmonary hypertension and cor pulmonale. - Patient is on IV Lasix, DuoNeb, Solu-Medrol, CPAP daily at bedtime, BIPAP as needed - Cardiology consult appreciated - Pulmonary consult appreciated ILD. Per pulmonary ? Revatio COPD exacerbation. Continue bronchodilators and steroid treatment Cor pulmonale. Per pulmonary Severe pulmonary hypertension. Ventilation perfusion scan consistent with COPD, no evidence of chronic thrombo-embolic pulmonary hypertension. Echo with low ejection fraction of 45% and severe pressures at 79 mmHg. RLL pneumonia. 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 History Interval history: No new issues overnight. Hospitalist Physical - Constitutional Vitals: Temp Pulse Resp BP Pulse Ox 97.5 F L 78 20 165/88 90 08/10/18 08:52 08/10/18 12:02 08/10/18 12:02 08/10/18 08:52 08/10/18 08:52 General appearance: Present: no acute distress - EENT Eyes: Present: PERRL, EOM intact ENT: hearing intact, clear oral mucosa, dentition normal - Neck Neck: Present: supple, normal ROM - Respiratory Respiratory effort: normal Respiratory: bilateral: CTA - Cardiovascular Rhythm: regular Heart Sounds: Present: S1 & S2. Absent: gallop, rub - Extremities Extremities: no ischemia, No edema, Full ROM - Abdominal General gastrointestinal: soft, non-tender, non-distended, normal bowel sounds - Integumentary Integumentary: Present: clear, warm, dry - Neurologic Neurologic: CNII-XII intact, moves all extremities Results - Labs CBC & Chem 7: 08/10/18 06:02 08/10/18 06:02 Labs: Laboratory Last Values WBC 8.1 K/mm3 (4.5-11.0) 08/10/18 06:02 RBC 5.11 M/mm3 (3.65-5.03) H 08/10/18 06:02 Hgb 15.9 gm/dl (11.8-15.2) H 08/10/18 06:02 Hct 47.6 % (35.5-45.6) H 08/10/18 06:02 MCV 93 fl (84-94) 08/10/18 06:02 MCH 31 pg (28-32) 08/10/18 06:02 MCHC 33 % (32-34) 08/10/18 06:02 RDW 13.5 % (13.2-15.2) 08/10/18 06:02 Plt Count 189 K/mm3 (140-440) 08/10/18 06:02 Lymph % (Auto) 12.3 % (13.4-35.0) L 08/03/18 05:00 [place] % (Auto) 10.9 % (0.0-7.3) H 08/03/18 05:00 Eos % (Auto) 2.8 % (0.0-4.3) 08/03/18 05:00 Baso % (Auto) 0.8 % (0.0-1.8) 08/03/18 05:00 Lymph # 0.9 K/mm3 (1.2-5.4) L 08/03/18 05:00 [place] # 0.8 K/mm3 (0.0-0.8) 08/03/18 05:00 Eos # 0.2 K/mm3 (0.0-0.4) 08/03/18 05:00 Baso # 0.1 K/mm3 (0.0-0.1) 08/03/18 05:00 Add Manual Diff Complete 08/10/18 06:02 Total Counted 100 08/10/18 06:02 Seg Neutrophils % Tow Picker 08/10/18 06:02 Seg Neuts % (Manual) 91.0 % (40.0-70.0) H 08/10/18 06:02 Band Neutrophils % 6.0 % 08/10/18 06:02 Lymphocytes % (Manual) 2.0 % (13.4-35.0) L 08/10/18 06:02 Reactive Lymphs % (Man) 0 % 08/10/18 06:02 Monocytes % (Manual) 1.0 % (0.0-7.3) 08/10/18 06:02 Eosinophils % (Manual) 0 % (0.0-4.3) 08/10/18 06:02 Basophils % (Manual) 0 % (0.0-1.8) 08/10/18 06:02 Metamyelocytes % 0 % 08/10/18 06:02 Myelocytes % 0 % 08/10/18 06:02 Promyelocytes % 0 % 08/10/18 06:02 Blast Cells % 0 % 08/10/18 06:02 Nucleated RBC % Not Reportable 08/10/18 06:02 Seg Neutrophils # 5.5 K/mm3 (1.8-7.7) 08/03/18 05:00 Seg Neutrophils # Man 7.4 K/mm3 (1.8-7.7) 08/10/18 06:02 Band Neutrophils # 0.5 K/mm3 08/10/18 06:02 Lymphocytes # (Manual) 0.2 K/mm3 (1.2-5.4) L 08/10/18 06:02 Abs React Lymphs (Man) 0.0 K/mm3 08/10/18 06:02 Monocytes # (Manual) 0.1 K/mm3 (0.0-0.8) 08/10/18 06:02 Eosinophils # (Manual) 0.0 K/mm3 (0.0-0.4) 08/10/18 06:02 Basophils # (Manual) 0.0 K/mm3 (0.0-0.1) 08/10/18 06:02 Metamyelocytes # 0.0 K/mm3 08/10/18 06:02 Myelocytes # 0.0 K/mm3 08/10/18 06:02 Promyelocytes # 0.0 K/mm3 08/10/18 06:02 Blast Cells # 0.0 K/mm3 08/10/18 06:02 WBC Morphology Not Reportable 08/10/18 06:02 Hypersegmented Neuts Not Reportable 08/10/18 06:02 Hyposegmented Neuts Not Reportable 08/10/18 06:02 Hypogranular Neuts Not Reportable 08/10/18 06:02 Smudge Cells Not Reportable 08/10/18 06:02 Toxic Granulation Not Reportable 08/10/18 06:02 Toxic Vacuolation Not Reportable 08/10/18 06:02 Dohle Bodies Not Reportable 08/10/18 06:02 Pelger-Huet Anomaly Not Reportable 08/10/18 06:02 Amanda Rods Not Reportable 08/10/18 06:02 Platelet Estimate Appears normal 08/10/18 06:02 Clumped Platelets Not Reportable 08/10/18 06:02 Plt Clumps, EDTA Not Reportable 08/10/18 06:02 Large Platelets Not Reportable 08/10/18 06:02 Giant Platelets Not Reportable 08/10/18 06:02 Platelet Satelliting Not Reportable 08/10/18 06:02 Plt Morphology Comment Not Reportable 08/10/18 06:02 RBC Morphology Normal 08/10/18 06:02 Dimorphic RBCs Not Reportable 08/10/18 06:02 Polychromasia Not Reportable 08/10/18 06:02 Hypochromasia Not Reportable 08/10/18 06:02 Poikilocytosis Not Reportable 08/10/18 06:02 Anisocytosis Not Reportable 08/10/18 06:02 Microcytosis Not Reportable 08/10/18 06:02 Macrocytosis Not Reportable 08/10/18 06:02 Spherocytes Not Reportable 08/10/18 06:02 Pappenheimer Bodies Not Reportable 08/10/18 06:02 Sickle Cells Not Reportable 08/10/18 06:02 Target Cells Not Reportable 08/10/18 06:02 Tear Drop Cells Not Reportable 08/10/18 06:02 Ovalocytes Not Reportable 08/10/18 06:02 Helmet Cells Not Reportable 08/10/18 06:02 Burton-Spiro Bodies Not Reportable 08/10/18 06:02 [place] Rings Not Reportable 08/10/18 06:02 [place] Cells Not Reportable 08/10/18 06:02 Bite Cells Not Reportable 08/10/18 06:02 Crenated Cell Not Reportable 08/10/18 06:02 Elliptocytes Not Reportable 08/10/18 06:02 Acanthocytes (Spur) Not Reportable 08/10/18 06:02 Rouleaux Not Reportable 08/10/18 06:02 Hemoglobin C Crystals Not Reportable 08/10/18 06:02 Schistocytes Not Reportable 08/10/18 06:02 Malaria parasites Not Reportable 08/10/18 06:02 Elias Bodies Not Reportable 08/10/18 06:02 Hem Pathologist Commnt No 08/10/18 06:02 PT 11.3 Sec. (12.2-14.9) L 08/02/18 16:44 INR 0.78 (0.87-1.13) L 08/02/18 16:44 APTT 27.5 Sec. (24.2-36.6) 08/02/18 16:44 Sodium 133 mmol/L (137-145) L 08/10/18 06:02 Potassium 4.1 mmol/L (3.6-5.0) 08/10/18 06:02 Chloride 89.1 mmol/L (98-107) L 08/10/18 06:02 Carbon Dioxide 33 mmol/L (22-30) H 08/10/18 06:02 Anion Gap 15 mmol/L 08/10/18 06:02 BUN 34 mg/dL (9-20) H 08/10/18 06:02 Creatinine 1.0 mg/dL (0.8-1.5) 08/10/18 06:02 Estimated GFR > 60 ml/min 08/10/18 06:02 BUN/Creatinine Ratio 34 % 08/10/18 06:02 Glucose 323 mg/dL (75-100) H 08/10/18 06:02 POC Glucose 281 (70-105) H 08/10/18 06:11 Hemoglobin A1c 7.3 % (4-6) H 08/02/18 Unknown Calcium 8.7 mg/dL (8.4-10.2) 08/10/18 06:02 Magnesium 1.50 mg/dL (1.7-2.3) L 08/04/18 00:17 Total Bilirubin 0.40 mg/dL (0.1-1.2) 08/03/18 05:00 AST 22 units/L (5-40) 08/03/18 05:00 ALT 22 units/L (7-56) 08/03/18 05:00 Alkaline Phosphatase 87 units/L (35-129) 08/03/18 05:00 Troponin T < 0.010 ng/mL (0.00-0.029) 08/02/18 16:44 NT-Pro-B Natriuret Pep 4912 pg/mL (0-900) H 08/02/18 16:44 Total Protein 6.4 g/dL (6.3-8.2) 08/03/18 05:00 Albumin 3.9 g/dL (3.9-5) 08/03/18 05:00 Albumin/Globulin Ratio 1.6 % 08/03/18 05:00 Nutrition/Malnutrition Assess - Dietary Evaluation Nutrition/Malnutrition Findings: Nutrition Notes Start: 08/09/18 10:46 Freq: Status: Active Protocol: Document 08/09/18 10:46 LM (Rec: 08/09/18 11:08 LM [id number]) Co-Sign 08/09/18 10:46 OL Nutrition Notes Need for Assessment generated from: LOS Initial or Follow up Brief Note Subjective/Other Information Screen for LOS. Pt stated he has a good appetite now and prior to admission. Pt ate all of his breakfast this morning . Pt stated that any weight changes was due to fluid build up in legs and lower stomach. Pt said his fluid build up is decreasing. Pt's weight before fluid build up was 235 lb. Pt stated he takes metformin at home. Discussed diet for DM with pt. #1 Nutrition Diagnosis Food and nutrition-related knowledge deficit Etiology DM As Evidenced by Signs and Symptoms Pt requesting DM information and Hgb A1C 7.3 Nutrition Intervention Teaching Recipient Patient Learning Readiness Good Teaching Methods Discussion Handout Response to Teaching Verbalize understanding Education Handouts Provided CHO Counting for DM Barriers to Learning No Barriers RD phone number provided Yes Patient aware of follow up options Yes Revisit per MD consult or patient Sign Off request:
[2018-08-10] MEDS: SODIUM CHLORIDE FLUSH SYRINGE 10 ML IV SCH ×2 (13:15→21:41)
[2018-08-10] MEDS: LANTUS SUB-Q SCH (21:41)
[2018-08-11] MEDS: SOLU-Medrol IV SCH ×4 (01:12→17:46)
[2018-08-11] MEDS: DILAUDID IV PRN (02:28)
[2018-08-11] MEDS: DUONEB *Not for PRN Use IH SCH ×5 (04:15→15:21)
[2018-08-11] MEDS: LASIX IV SCH ×2 (05:49→17:45)
[2018-08-11] MEDS: PERCOCET 5/325 PO PRN ×3 (06:42→18:45)
[2018-08-11] MEDS: HumaLOG SUB-Q SCH ×4 (08:56→22:18)
[2018-08-11] MEDS: NEURONTIN PO SCH ×3 (08:57→22:18)
[2018-08-11] MEDS: XANAX PO PRN ×2 (08:57→17:53)
[2018-08-11] MEDS: GLUCOPHAGE PO SCH ×2 (08:57→17:47)
[2018-08-11] MEDS: HEPARIN SUB-Q SCH ×2 (09:00→22:18)
[2018-08-11] MEDS: LEVAQUIN PO SCH (09:00)
[2018-08-11] MEDS: REVATIO PO SCH ×3 (09:00→22:18)
[2018-08-11] MEDS: PEPCID PO SCH ×2 (09:00→22:18)
[2018-08-11] MEDS: SODIUM CHLORIDE FLUSH SYRINGE 10 ML IV SCH ×2 (09:03→22:20)
[2018-08-11] MEDS: PULMICORT IH SCH ×2 (09:08→20:55)
[2018-08-11] MEDS: BROVANA NEBU IH SCH ×2 (09:08→20:55)
--- NOTE | 2018-08-11 10:19 | Progress Note ---
Assessment and Plan Systolic heart failure exacerbation episode. Controlled Suspected ILD Severe pulmonary hypertension. -Echo with low ejection fraction of 45% and severe pressures at 79 mmHg. Consistent with group 2 and possibly group 3. No RHC data. -Ventilation/perfusion scan consistent with COPD, no evidence of chronic thrombo-embolic pulmonary hypertension Tobacco abuse COPD Recommendations Continue nebulizer therapy and transition to her inhaled inhaler, Symbicort or Stiolto. Continue oxygen support and taper down on as tolerated. He uses oxygen 2 L at home chronically Avoid hypoxemia at nighttime. 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 Discussed with patient and Dr. Beaver detail. All questions answered. Subjective Date of service: 08/11/18 Principal diagnosis: COPD, ILD Interval history: Complaints again of chest discomfort pain and asking for pain medications for it. This appears to be a recurrent chronic problem and not acute. Breathing seems to be slightly better with less wheezing. Objective Vital Signs - 12hr 08/10/18 08/11/18 08/11/18 23:37 04:04 06:42 Temperature 98.0 F 98.0 F Pulse Rate 91 H 83 Respiratory 18 18 20 Rate Blood Pressure 117/69 125/68 O2 Sat by Pulse 93 94 Oximetry 08/11/18 09:25 Temperature 97.5 F L Pulse Rate 82 Respiratory 18 Rate Blood Pressure 135/75 O2 Sat by Pulse 91 Oximetry Constitutional: no acute distress, alert Eyes: icteric, other (OS eyelid drop) ENT: oropharynx moist Neck: supple, no JVD Effort: normal Ascultation: Bilateral: clear, diminished breath sounds, wheezes (very faint, occasional), rales (an expiatory at bases, faint) Percussion: Bilateral: not dull Tactile fremitus: Bilateral: normal Cardiovascular: regular rate and rhythm Gastrointestinal: normoactive bowel sounds, soft, non-tender Extremities: no edema, cyanosis Neurologic: normal mental status Psychiatric: mood appropriate CBC and BMP: 08/10/18 06:02 08/10/18 06:02 ABG, PT/INR, D-dimer: PT/INR, D-dimer PT 11.3 Sec. (12.2-14.9) L 08/02/18 16:44 INR 0.78 (0.87-1.13) L 08/02/18 16:44 Abnormal lab findings: Abnormal Labs 08/02/18 08/02/18 08/02/18 16:25 16:25 16:44 RBC Hgb 15.3 H Hct 45.8 H MCV 95 H Lymph % (Auto) 6.7 L [place] % (Auto) 8.8 H Lymph # 0.5 L Seg Neutrophils % 82.5 H Seg Neuts % (Manual) Lymphocytes % (Manual) Lymphocytes # (Manual) PT 11.3 L INR 0.78 L Sodium 134 L Potassium Chloride 97.8 L Carbon Dioxide BUN Creatinine Glucose 126 H POC Glucose Hemoglobin A1c Magnesium NT-Pro-B Natriuret Pep 08/02/18 08/02/18 08/03/18 16:44 Unknown 05:00 RBC Hgb Hct MCV 95 H Lymph % (Auto) 12.3 L [place] % (Auto) 10.9 H Lymph # 0.9 L Seg Neutrophils % 73.2 H Seg Neuts % (Manual) Lymphocytes % (Manual) Lymphocytes # (Manual) PT INR Sodium Potassium Chloride Carbon Dioxide BUN Creatinine Glucose POC Glucose Hemoglobin A1c 7.3 H Magnesium NT-Pro-B Natriuret Pep 4912 H 08/03/18 08/03/18 08/04/18 05:00 21:46 00:17 RBC Hgb Hct MCV Lymph % (Auto) [place] % (Auto) Lymph # Seg Neutrophils % Seg Neuts % (Manual) Lymphocytes % (Manual) Lymphocytes # (Manual) PT INR Sodium Potassium Chloride Carbon Dioxide BUN Creatinine 0.7 L Glucose POC Glucose 207 H Hemoglobin A1c Magnesium 1.50 L NT-Pro-B Natriuret Pep 08/04/18 08/04/18 08/04/18 05:18 05:18 06:32 RBC Hgb Hct MCV Lymph % (Auto) [place] % (Auto) Lymph # Seg Neutrophils % Seg Neuts % (Manual) 93.0 H Lymphocytes % (Manual) 1.0 L Lymphocytes # (Manual) 0.1 L PT INR Sodium 134 L Potassium Chloride 91.9 L Carbon Dioxide BUN Creatinine 0.7 L Glucose 243 H POC Glucose 216 H Hemoglobin A1c Magnesium NT-Pro-B Natriuret Pep 08/04/18 08/04/18 08/04/18 06:48 12:51 21:23 RBC Hgb Hct MCV Lymph % (Auto) [place] % (Auto) Lymph # Seg Neutrophils % Seg Neuts % (Manual) Lymphocytes % (Manual) Lymphocytes # (Manual) PT INR Sodium Potassium Chloride Carbon Dioxide BUN Creatinine Glucose POC Glucose 220 H 202 H 278 H Hemoglobin A1c Magnesium NT-Pro-B Natriuret Pep 08/05/18 08/05/18 08/05/18 06:33 10:40 15:20 RBC Hgb Hct MCV Lymph % (Auto) [place] % (Auto) Lymph # Seg Neutrophils % Seg Neuts % (Manual) Lymphocytes % (Manual) Lymphocytes # (Manual) PT INR Sodium Potassium Chloride Carbon Dioxide BUN Creatinine Glucose POC Glucose 266 H 233 H 241 H Hemoglobin A1c Magnesium NT-Pro-B Natriuret Pep 08/06/18 08/06/18 08/06/18 00:01 05:49 11:14 RBC Hgb Hct MCV Lymph % (Auto) [place] % (Auto) Lymph # Seg Neutrophils % Seg Neuts % (Manual) Lymphocytes % (Manual) Lymphocytes # (Manual) PT INR Sodium 132 L Potassium 5.5 H Chloride 90.1 L Carbon Dioxide 31 H BUN 27 H Creatinine Glucose 283 H POC Glucose 334 H 266 H Hemoglobin A1c Magnesium NT-Pro-B Natriuret Pep 08/06/18 08/06/18 08/07/18 16:49 21:22 05:35 RBC Hgb Hct MCV Lymph % (Auto) [place] % (Auto) Lymph # Seg Neutrophils % Seg Neuts % (Manual) Lymphocytes % (Manual) Lymphocytes # (Manual) PT INR Sodium 136 L Potassium Chloride 92.2 L Carbon Dioxide 34 H BUN 38 H Creatinine Glucose 281 H POC Glucose 297 H 164 H Hemoglobin A1c Magnesium NT-Pro-B Natriuret Pep 08/07/18 08/07/18 08/07/18 05:57 11:44 16:53 RBC Hgb Hct MCV Lymph % (Auto) [place] % (Auto) Lymph # Seg Neutrophils % Seg Neuts % (Manual) Lymphocytes % (Manual) Lymphocytes # (Manual) PT INR Sodium Potassium Chloride Carbon Dioxide BUN Creatinine Glucose POC Glucose 228 H 213 H 171 H Hemoglobin A1c Magnesium NT-Pro-B Natriuret Pep 08/07/18 08/08/18 08/08/18 21:53 06:11 12:02 RBC Hgb Hct MCV Lymph % (Auto) [place] % (Auto) Lymph # Seg Neutrophils % Seg Neuts % (Manual) Lymphocytes % (Manual) Lymphocytes # (Manual) PT INR Sodium Potassium Chloride Carbon Dioxide BUN Creatinine Glucose POC Glucose 349 H 256 H 291 H Hemoglobin A1c Magnesium NT-Pro-B Natriuret Pep 08/08/18 08/08/18 08/09/18 16:50 20:40 05:22 RBC Hgb Hct MCV Lymph % (Auto) [place] % (Auto) Lymph # Seg Neutrophils % Seg Neuts % (Manual) Lymphocytes % (Manual) Lymphocytes # (Manual) PT INR Sodium Potassium Chloride Carbon Dioxide BUN Creatinine Glucose POC Glucose 209 H 217 H 225 H Hemoglobin A1c Magnesium NT-Pro-B Natriuret Pep 08/09/18 08/09/18 08/09/18 11:45 17:26 21:52 RBC Hgb Hct MCV Lymph % (Auto) [place] % (Auto) Lymph # Seg Neutrophils % Seg Neuts % (Manual) Lymphocytes % (Manual) Lymphocytes # (Manual) PT INR Sodium Potassium Chloride Carbon Dioxide BUN Creatinine Glucose POC Glucose 293 H 280 H 316 H Hemoglobin A1c Magnesium NT-Pro-B Natriuret Pep 08/10/18 08/10/18 08/10/18 06:02 06:02 06:11 RBC 5.11 H Hgb 15.9 H Hct 47.6 H MCV Lymph % (Auto) [place] % (Auto) Lymph # Seg Neutrophils % Seg Neuts % (Manual) 91.0 H Lymphocytes % (Manual) 2.0 L Lymphocytes # (Manual) 0.2 L PT INR Sodium 133 L Potassium Chloride 89.1 L Carbon Dioxide 33 H BUN 34 H Creatinine Glucose 323 H POC Glucose 281 H Hemoglobin A1c Magnesium NT-Pro-B Natriuret Pep 08/10/18 08/10/18 08/10/18 13:02 17:12 21:24 RBC Hgb Hct MCV Lymph % (Auto) [place] % (Auto) Lymph # Seg Neutrophils % Seg Neuts % (Manual) Lymphocytes % (Manual) Lymphocytes # (Manual) PT INR Sodium Potassium Chloride Carbon Dioxide BUN Creatinine Glucose POC Glucose 237 H 284 H 318 H Hemoglobin A1c Magnesium NT-Pro-B Natriuret Pep 08/11/18 06:09 RBC Hgb Hct MCV Lymph % (Auto) [place] % (Auto) Lymph # Seg Neutrophils % Seg Neuts % (Manual) Lymphocytes % (Manual) Lymphocytes # (Manual) PT INR Sodium Potassium Chloride Carbon Dioxide BUN Creatinine Glucose POC Glucose 237 H Hemoglobin A1c Magnesium NT-Pro-B Natriuret Pep
--- NOTE | 2018-08-11 12:36 | Progress Note ---
Assessment and Plan Assessment and plan: Acute on chronic respiratory failure. Continue O2 for supportive care. Etiology multifactorial secondary to COPD, CHF, ILD, OHS/DUANE, severe pulmonary hypertension and cor pulmonale. - Patient is on IV Lasix, DuoNeb, Solu-Medrol, CPAP daily at bedtime, BIPAP as needed - Cardiology consult appreciated - Pulmonary consult appreciated ILD. Per pulmonary ? Revatio COPD exacerbation. Continue bronchodilators and steroid treatment Cor pulmonale. Per pulmonary Severe pulmonary hypertension. Ventilation perfusion scan consistent with COPD, no evidence of chronic thrombo-embolic pulmonary hypertension. Echo with low ejection fraction of 45% and severe pressures at 79 mmHg. RLL pneumonia. Continue antibiotics Acute on Chronic combined CHF Morbid obesity Tobacco dependence - Ortho Assistant on smoking cessation Hyperlipidemia; continue statin Diabetes mellitus type II, uncontrolled - ON ssi and increase lantus qhs DVT prophylaxis - On heparin DisPosition - patient need rehab - At discharge Dr Paredes recommend prednisolone 60mg daily for life and bactrim for PCP prophylaxis due to steroid induced immune suppression. History Interval history: No new issues overnight. Patient still requiring 4 L of oxygen. His baseline is 2 L at home. Hospitalist Physical - Constitutional Vitals: Temp Pulse Resp BP Pulse Ox 97.5 F L 82 18 135/75 94 08/11/18 09:25 08/11/18 09:25 08/11/18 09:25 08/11/18 09:25 08/11/18 10:00 General appearance: Present: no acute distress - EENT Eyes: Present: PERRL, EOM intact ENT: hearing intact, clear oral mucosa, dentition normal - Neck Neck: Present: supple, normal ROM - Respiratory Respiratory effort: normal Respiratory: bilateral: diminished, rhonchi, wheezing - Cardiovascular Rhythm: regular Heart Sounds: Present: S1 & S2. Absent: gallop, rub - Extremities Extremities: no ischemia, No edema, Full ROM - Abdominal General gastrointestinal: soft, non-tender, non-distended, normal bowel sounds - Integumentary Integumentary: Present: clear, warm, dry - Neurologic Neurologic: CNII-XII intact, moves all extremities Results - Labs CBC & Chem 7: 08/10/18 06:02 08/10/18 06:02 Labs: Laboratory Last Values WBC 8.1 K/mm3 (4.5-11.0) 08/10/18 06:02 RBC 5.11 M/mm3 (3.65-5.03) H 08/10/18 06:02 Hgb 15.9 gm/dl (11.8-15.2) H 08/10/18 06:02 Hct 47.6 % (35.5-45.6) H 08/10/18 06:02 MCV 93 fl (84-94) 08/10/18 06:02 MCH 31 pg (28-32) 08/10/18 06:02 MCHC 33 % (32-34) 08/10/18 06:02 RDW 13.5 % (13.2-15.2) 08/10/18 06:02 Plt Count 189 K/mm3 (140-440) 08/10/18 06:02 Lymph % (Auto) 12.3 % (13.4-35.0) L 08/03/18 05:00 [place] % (Auto) 10.9 % (0.0-7.3) H 08/03/18 05:00 Eos % (Auto) 2.8 % (0.0-4.3) 08/03/18 05:00 Baso % (Auto) 0.8 % (0.0-1.8) 08/03/18 05:00 Lymph # 0.9 K/mm3 (1.2-5.4) L 08/03/18 05:00 [place] # 0.8 K/mm3 (0.0-0.8) 08/03/18 05:00 Eos # 0.2 K/mm3 (0.0-0.4) 08/03/18 05:00 Baso # 0.1 K/mm3 (0.0-0.1) 08/03/18 05:00 Add Manual Diff Complete 08/10/18 06:02 Total Counted 100 08/10/18 06:02 Seg Neutrophils % Mixologist 08/10/18 06:02 Seg Neuts % (Manual) 91.0 % (40.0-70.0) H 08/10/18 06:02 Band Neutrophils % 6.0 % 08/10/18 06:02 Lymphocytes % (Manual) 2.0 % (13.4-35.0) L 08/10/18 06:02 Reactive Lymphs % (Man) 0 % 08/10/18 06:02 Monocytes % (Manual) 1.0 % (0.0-7.3) 08/10/18 06:02 Eosinophils % (Manual) 0 % (0.0-4.3) 08/10/18 06:02 Basophils % (Manual) 0 % (0.0-1.8) 08/10/18 06:02 Metamyelocytes % 0 % 08/10/18 06:02 Myelocytes % 0 % 08/10/18 06:02 Promyelocytes % 0 % 08/10/18 06:02 Blast Cells % 0 % 08/10/18 06:02 Nucleated RBC % Not Reportable 08/10/18 06:02 Seg Neutrophils # 5.5 K/mm3 (1.8-7.7) 08/03/18 05:00 Seg Neutrophils # Man 7.4 K/mm3 (1.8-7.7) 08/10/18 06:02 Band Neutrophils # 0.5 K/mm3 08/10/18 06:02 Lymphocytes # (Manual) 0.2 K/mm3 (1.2-5.4) L 08/10/18 06:02 Abs React Lymphs (Man) 0.0 K/mm3 08/10/18 06:02 Monocytes # (Manual) 0.1 K/mm3 (0.0-0.8) 08/10/18 06:02 Eosinophils # (Manual) 0.0 K/mm3 (0.0-0.4) 08/10/18 06:02 Basophils # (Manual) 0.0 K/mm3 (0.0-0.1) 08/10/18 06:02 Metamyelocytes # 0.0 K/mm3 08/10/18 06:02 Myelocytes # 0.0 K/mm3 08/10/18 06:02 Promyelocytes # 0.0 K/mm3 08/10/18 06:02 Blast Cells # 0.0 K/mm3 08/10/18 06:02 WBC Morphology Not Reportable 08/10/18 06:02 Hypersegmented Neuts Not Reportable 08/10/18 06:02 Hyposegmented Neuts Not Reportable 08/10/18 06:02 Hypogranular Neuts Not Reportable 08/10/18 06:02 Smudge Cells Not Reportable 08/10/18 06:02 Toxic Granulation Not Reportable 08/10/18 06:02 Toxic Vacuolation Not Reportable 08/10/18 06:02 Dohle Bodies Not Reportable 08/10/18 06:02 Pel[place]-Huet Anomaly Not Reportable 08/10/18 06:02 Amanda Rods Not Reportable 08/10/18 06:02 Platelet Estimate Appears normal 08/10/18 06:02 Clumped Platelets Not Reportable 08/10/18 06:02 Plt Clumps, EDTA Not Reportable 08/10/18 06:02 Large Platelets Not Reportable 08/10/18 06:02 Giant Platelets Not Reportable 08/10/18 06:02 Platelet Satelliting Not Reportable 08/10/18 06:02 Plt Morphology Comment Not Reportable 08/10/18 06:02 RBC Morphology Normal 08/10/18 06:02 Dimorphic RBCs Not Reportable 08/10/18 06:02 Polychromasia Not Reportable 08/10/18 06:02 Hypochromasia Not Reportable 08/10/18 06:02 Poikilocytosis Not Reportable 08/10/18 06:02 Anisocytosis Not Reportable 08/10/18 06:02 Microcytosis Not Reportable 08/10/18 06:02 Macrocytosis Not Reportable 08/10/18 06:02 Spherocytes Not Reportable 08/10/18 06:02 Pappenheimer Bodies Not Reportable 08/10/18 06:02 Sickle Cells Not Reportable 08/10/18 06:02 Target Cells Not Reportable 08/10/18 06:02 Tear Drop Cells Not Reportable 08/10/18 06:02 Ovalocytes Not Reportable 08/10/18 06:02 Helmet Cells Not Reportable 08/10/18 06:02 Burton-Macdona Bodies Not Reportable 08/10/18 06:02 [place] Rings Not Reportable 08/10/18 06:02 Krissy Cells Not Reportable 08/10/18 06:02 Bite Cells Not Reportable 08/10/18 06:02 Crenated Cell Not Reportable 08/10/18 06:02 Elliptocytes Not Reportable 08/10/18 06:02 Acanthocytes (Spur) Not Reportable 08/10/18 06:02 Rouleaux Not Reportable 08/10/18 06:02 Hemoglobin C Crystals Not Reportable 08/10/18 06:02 Schistocytes Not Reportable 08/10/18 06:02 Malaria parasites Not Reportable 08/10/18 06:02 Elias Bodies Not Reportable 08/10/18 06:02 Hem Pathologist Commnt No 08/10/18 06:02 PT 11.3 Sec. (12.2-14.9) L 08/02/18 16:44 INR 0.78 (0.87-1.13) L 08/02/18 16:44 APTT 27.5 Sec. (24.2-36.6) 08/02/18 16:44 Sodium 133 mmol/L (137-145) L 08/10/18 06:02 Potassium 4.1 mmol/L (3.6-5.0) 08/10/18 06:02 Chloride 89.1 mmol/L (98-107) L 08/10/18 06:02 Carbon Dioxide 33 mmol/L (22-30) H 08/10/18 06:02 Anion Gap 15 mmol/L 08/10/18 06:02 BUN 34 mg/dL (9-20) H 08/10/18 06:02 Creatinine 1.0 mg/dL (0.8-1.5) 08/10/18 06:02 Estimated GFR > 60 ml/min 08/10/18 06:02 BUN/Creatinine Ratio 34 % 08/10/18 06:02 Glucose 323 mg/dL (75-100) H 08/10/18 06:02 POC Glucose 237 (70-105) H 08/11/18 06:09 Hemoglobin A1c 7.3 % (4-6) H 08/02/18 Unknown Calcium 8.7 mg/dL (8.4-10.2) 08/10/18 06:02 Magnesium 1.50 mg/dL (1.7-2.3) L 08/04/18 00:17 Total Bilirubin 0.40 mg/dL (0.1-1.2) 08/03/18 05:00 AST 22 units/L (5-40) 08/03/18 05:00 ALT 22 units/L (7-56) 08/03/18 05:00 Alkaline Phosphatase 87 units/L (35-129) 08/03/18 05:00 Troponin T < 0.010 ng/mL (0.00-0.029) 08/02/18 16:44 NT-Pro-B Natriuret Pep 4912 pg/mL (0-900) H 08/02/18 16:44 Total Protein 6.4 g/dL (6.3-8.2) 08/03/18 05:00 Albumin 3.9 g/dL (3.9-5) 08/03/18 05:00 Albumin/Globulin Ratio 1.6 % 08/03/18 05:00 Nutrition/Malnutrition Assess - Dietary Evaluation Nutrition/Malnutrition Findings: Nutrition Notes Start: 08/09/18 10:46 Freq: Status: Active Protocol: Document 08/09/18 10:46 LM (Rec: 08/09/18 11:08 LM [id number]) Co-Sign 08/09/18 10:46 OL Nutrition Notes Need for Assessment generated from: LOS Initial or Follow up Brief Note Subjective/Other Information Screen for LOS. Pt stated he has a good appetite now and prior to admission. Pt ate all of his breakfast this morning . Pt stated that any weight changes was due to fluid build up in legs and lower stomach. Pt said his fluid build up is decreasing. Pt's weight before fluid build up was 235 lb. Pt stated he takes metformin at home. Discussed diet for DM with pt. #1 Nutrition Diagnosis Food and nutrition-related knowledge deficit Etiology DM As Evidenced by Signs and Symptoms Pt requesting DM information and Hgb A1C 7.3 Nutrition Intervention Teaching Recipient Patient Learning Readiness Good Teaching Methods Discussion Handout Response to Teaching Verbalize understanding Education Handouts Provided CHO Counting for DM Barriers to Learning No Barriers RD phone number provided Yes Patient aware of follow up options Yes Revisit per MD consult or patient Sign Off request:
[2018-08-11] MEDS: LANTUS SUB-Q SCH (22:19)
[2018-08-12] MEDS: SOLU-Medrol IV SCH ×4 (00:40→19:16)
[2018-08-12] MEDS: PERCOCET 5/325 PO PRN ×4 (00:40→22:12)
[2018-08-12] MEDS: XANAX PO PRN ×3 (02:45→22:12)
[2018-08-12] MEDS: LASIX IV SCH ×2 (06:04→19:16)
[2018-08-12] MEDS: REVATIO PO SCH ×3 (09:13→22:12)
[2018-08-12] MEDS: PEPCID PO SCH ×2 (09:13→22:12)
[2018-08-12] MEDS: GLUCOPHAGE PO SCH ×2 (09:13→19:16)
[2018-08-12] MEDS: LEVAQUIN PO SCH (09:13)
[2018-08-12] MEDS: NEURONTIN PO SCH ×3 (09:13→22:18)
[2018-08-12] MEDS: HEPARIN SUB-Q SCH ×2 (09:14→22:13)
[2018-08-12] MEDS: HumaLOG SUB-Q SCH ×4 (09:14→22:13)
[2018-08-12] MEDS: SODIUM CHLORIDE FLUSH SYRINGE 10 ML IV SCH ×2 (09:15→22:22)
--- NOTE | 2018-08-12 11:46 | Progress Note ---
Assessment and Plan - Patient Problems (1) ILD (interstitial lung disease) Current Visit: Yes Status: Acute (2) Acute exacerbation of CHF (congestive heart failure) Current Visit: Yes Status: Acute Qualifiers: (3) Hypoxia Current Visit: Yes Status: Acute (4) Pulmonary edema Current Visit: Yes Status: Acute (5) Claudication Current Visit: No Status: Acute (6) Pneumonia involving right lung Current Visit: No Status: Acute (7) COPD (chronic obstructive pulmonary disease) Current Visit: No Status: Chronic Qualifiers: COPD type: unspecified COPD Qualified Code(s): J44.9 - Chronic obstructive pulmonary disease, unspecified (8) Diabetes Current Visit: No Status: Chronic (9) Hypertension Current Visit: No Status: Chronic Qualifiers: Hypertension type: essential hypertension Qualified Code(s): I10 - Essential (primary) hypertension (10) Acute and chronic respiratory failure ([id number]) Current Visit: Yes Status: Acute Subjective Principal diagnosis: COPD, ILD Interval history: th high o2 requirement Objective Vital Signs - 12hr 08/12/18 08/12/18 04:13 07:25 Temperature 98.1 F 97.7 F Pulse Rate 79 75 Respiratory 18 12 Rate Blood Pressure 136/80 149/82 O2 Sat by Pulse 93 90 Oximetry Constitutional: no acute distress, alert Eyes: icteric, other (OS eyelid drop) ENT: oropharynx moist Neck: supple, no JVD Effort: normal Ascultation: Bilateral: diminished breath sounds, wheezes (very faint, occasional), rales (rare) Percussion: Bilateral: not dull Tactile fremitus: Bilateral: normal Cardiovascular: regular rate and rhythm Gastrointestinal: normoactive bowel sounds, soft, non-tender Extremities: no edema, cyanosis Neurologic: normal mental status Psychiatric: mood appropriate CBC and BMP: 08/10/18 06:02 08/10/18 06:02 ABG, PT/INR, D-dimer: PT/INR, D-dimer PT 11.3 Sec. (12.2-14.9) L 08/02/18 16:44 INR 0.78 (0.87-1.13) L 08/02/18 16:44 Abnormal lab findings: Abnormal Labs 08/02/18 08/02/18 08/02/18 16:25 16:25 16:44 RBC Hgb 15.3 H Hct 45.8 H MCV 95 H Lymph % (Auto) 6.7 L [place] % (Auto) 8.8 H Lymph # 0.5 L Seg Neutrophils % 82.5 H Seg Neuts % (Manual) Lymphocytes % (Manual) Lymphocytes # (Manual) PT 11.3 L INR 0.78 L Sodium 134 L Potassium Chloride 97.8 L Carbon Dioxide BUN Creatinine Glucose 126 H POC Glucose Hemoglobin A1c Magnesium NT-Pro-B Natriuret Pep 08/02/18 08/02/18 08/03/18 16:44 Unknown 05:00 RBC Hgb Hct MCV 95 H Lymph % (Auto) 12.3 L [place] % (Auto) 10.9 H Lymph # 0.9 L Seg Neutrophils % 73.2 H Seg Neuts % (Manual) Lymphocytes % (Manual) Lymphocytes # (Manual) PT INR Sodium Potassium Chloride Carbon Dioxide BUN Creatinine Glucose POC Glucose Hemoglobin A1c 7.3 H Magnesium NT-Pro-B Natriuret Pep 4912 H 08/03/18 08/03/18 08/04/18 05:00 21:46 00:17 RBC Hgb Hct MCV Lymph % (Auto) [place] % (Auto) Lymph # Seg Neutrophils % Seg Neuts % (Manual) Lymphocytes % (Manual) Lymphocytes # (Manual) PT INR Sodium Potassium Chloride Carbon Dioxide BUN Creatinine 0.7 L Glucose POC Glucose 207 H Hemoglobin A1c Magnesium 1.50 L NT-Pro-B Natriuret Pep 08/04/18 08/04/18 08/04/18 05:18 05:18 06:32 RBC Hgb Hct MCV Lymph % (Auto) [place] % (Auto) Lymph # Seg Neutrophils % Seg Neuts % (Manual) 93.0 H Lymphocytes % (Manual) 1.0 L Lymphocytes # (Manual) 0.1 L PT INR Sodium 134 L Potassium Chloride 91.9 L Carbon Dioxide BUN Creatinine 0.7 L Glucose 243 H POC Glucose 216 H Hemoglobin A1c Magnesium NT-Pro-B Natriuret Pep 08/04/18 08/04/18 08/04/18 06:48 12:51 21:23 RBC Hgb Hct MCV Lymph % (Auto) [place] % (Auto) Lymph # Seg Neutrophils % Seg Neuts % (Manual) Lymphocytes % (Manual) Lymphocytes # (Manual) PT INR Sodium Potassium Chloride Carbon Dioxide BUN Creatinine Glucose POC Glucose 220 H 202 H 278 H Hemoglobin A1c Magnesium NT-Pro-B Natriuret Pep 08/05/18 08/05/18 08/05/18 06:33 10:40 15:20 RBC Hgb Hct MCV Lymph % (Auto) [place] % (Auto) Lymph # Seg Neutrophils % Seg Neuts % (Manual) Lymphocytes % (Manual) Lymphocytes # (Manual) PT INR Sodium Potassium Chloride Carbon Dioxide BUN Creatinine Glucose POC Glucose 266 H 233 H 241 H Hemoglobin A1c Magnesium NT-Pro-B Natriuret Pep 08/06/18 08/06/18 08/06/18 00:01 05:49 11:14 RBC Hgb Hct MCV Lymph % (Auto) [place] % (Auto) Lymph # Seg Neutrophils % Seg Neuts % (Manual) Lymphocytes % (Manual) Lymphocytes # (Manual) PT INR Sodium 132 L Potassium 5.5 H Chloride 90.1 L Carbon Dioxide 31 H BUN 27 H Creatinine Glucose 283 H POC Glucose 334 H 266 H Hemoglobin A1c Magnesium NT-Pro-B Natriuret Pep 08/06/18 08/06/18 08/07/18 16:49 21:22 05:35 RBC Hgb Hct MCV Lymph % (Auto) [place] % (Auto) Lymph # Seg Neutrophils % Seg Neuts % (Manual) Lymphocytes % (Manual) Lymphocytes # (Manual) PT INR Sodium 136 L Potassium Chloride 92.2 L Carbon Dioxide 34 H BUN 38 H Creatinine Glucose 281 H POC Glucose 297 H 164 H Hemoglobin A1c Magnesium NT-Pro-B Natriuret Pep 08/07/18 08/07/18 08/07/18 05:57 11:44 16:53 RBC Hgb Hct MCV Lymph % (Auto) [place] % (Auto) Lymph # Seg Neutrophils % Seg Neuts % (Manual) Lymphocytes % (Manual) Lymphocytes # (Manual) PT INR Sodium Potassium Chloride Carbon Dioxide BUN Creatinine Glucose POC Glucose 228 H 213 H 171 H Hemoglobin A1c Magnesium NT-Pro-B Natriuret Pep 08/07/18 08/08/18 08/08/18 21:53 06:11 12:02 RBC Hgb Hct MCV Lymph % (Auto) [place] % (Auto) Lymph # Seg Neutrophils % Seg Neuts % (Manual) Lymphocytes % (Manual) Lymphocytes # (Manual) PT INR Sodium Potassium Chloride Carbon Dioxide BUN Creatinine Glucose POC Glucose 349 H 256 H 291 H Hemoglobin A1c Magnesium NT-Pro-B Natriuret Pep 08/08/18 08/08/18 08/09/18 16:50 20:40 05:22 RBC Hgb Hct MCV Lymph % (Auto) [place] % (Auto) Lymph # Seg Neutrophils % Seg Neuts % (Manual) Lymphocytes % (Manual) Lymphocytes # (Manual) PT INR Sodium Potassium Chloride Carbon Dioxide BUN Creatinine Glucose POC Glucose 209 H 217 H 225 H Hemoglobin A1c Magnesium NT-Pro-B Natriuret Pep 08/09/18 08/09/18 08/09/18 11:45 17:26 21:52 RBC Hgb Hct MCV Lymph % (Auto) [place] % (Auto) Lymph # Seg Neutrophils % Seg Neuts % (Manual) Lymphocytes % (Manual) Lymphocytes # (Manual) PT INR Sodium Potassium Chloride Carbon Dioxide BUN Creatinine Glucose POC Glucose 293 H 280 H 316 H Hemoglobin A1c Magnesium NT-Pro-B Natriuret Pep 08/10/18 08/10/18 08/10/18 06:02 06:02 06:11 RBC 5.11 H Hgb 15.9 H Hct 47.6 H MCV Lymph % (Auto) [place] % (Auto) Lymph # Seg Neutrophils % Seg Neuts % (Manual) 91.0 H Lymphocytes % (Manual) 2.0 L Lymphocytes # (Manual) 0.2 L PT INR Sodium 133 L Potassium Chloride 89.1 L Carbon Dioxide 33 H BUN 34 H Creatinine Glucose 323 H POC Glucose 281 H Hemoglobin A1c Magnesium NT-Pro-B Natriuret Pep 08/10/18 08/10/18 08/10/18 13:02 17:12 21:24 RBC Hgb Hct MCV Lymph % (Auto) [place] % (Auto) Lymph # Seg Neutrophils % Seg Neuts % (Manual) Lymphocytes % (Manual) Lymphocytes # (Manual) PT INR Sodium Potassium Chloride Carbon Dioxide BUN Creatinine Glucose POC Glucose 237 H 284 H 318 H Hemoglobin A1c Magnesium NT-Pro-B Natriuret Pep 08/11/18 08/11/18 08/11/18 06:09 12:09 16:30 RBC Hgb Hct MCV Lymph % (Auto) [place] % (Auto) Lymph # Seg Neutrophils % Seg Neuts % (Manual) Lymphocytes % (Manual) Lymphocytes # (Manual) PT INR Sodium Potassium Chloride Carbon Dioxide BUN Creatinine Glucose POC Glucose 237 H 259 H 249 H Hemoglobin A1c Magnesium NT-Pro-B Natriuret Pep 08/11/18 08/12/18 08/12/18 21:16 06:46 11:36 RBC Hgb Hct MCV Lymph % (Auto) [place] % (Auto) Lymph # Seg Neutrophils % Seg Neuts % (Manual) Lymphocytes % (Manual) Lymphocytes # (Manual) PT INR Sodium Potassium Chloride Carbon Dioxide BUN Creatinine Glucose POC Glucose 269 H 234 H 281 H Hemoglobin A1c Magnesium NT-Pro-B Natriuret Pep
[2018-08-12] MEDS: BROVANA NEBU IH SCH ×2 (12:11→19:54)
[2018-08-12] MEDS: PULMICORT IH SCH ×2 (12:11→19:54)
--- NOTE | 2018-08-12 12:20 | Progress Note ---
Assessment and Plan Assessment and plan: Acute on chronic respiratory failure. Continue O2 for supportive care. Etiology multifactorial secondary to COPD, CHF, ILD, OHS/DUANE, severe pulmonary hypertension and cor pulmonale. Wean oxygen to his home regimen of 2 L ILD. Per pulmonary ? Revatio COPD exacerbation. Continue bronchodilators and steroid treatment Cor pulmonale. Per pulmonary Severe pulmonary hypertension. Ventilation perfusion scan consistent with COPD, no evidence of chronic thrombo-embolic pulmonary hypertension. Echo with low ejection fraction of 45% and severe pressures at 79 mmHg. RLL pneumonia. 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 - At discharge Dr Paredes recommend prednisolone 60mg daily for life and bactrim for PCP prophylaxis due to steroid induced immune suppression. History Interval history: No new issues overnight. Patient still requiring 4 L of oxygen. His baseline is 2 L at home. Hospitalist Physical - Constitutional Vitals: Temp Pulse Resp BP Pulse Ox 97.7 F 80 18 149/82 94 08/12/18 07:25 08/12/18 12:14 08/12/18 12:14 08/12/18 07:25 08/12/18 12:14 General appearance: Present: no acute distress - EENT Eyes: Present: PERRL, EOM intact ENT: hearing intact, clear oral mucosa, dentition normal - Neck Neck: Present: supple, normal ROM - Respiratory Respiratory effort: normal Respiratory: bilateral: CTA - Cardiovascular Rhythm: regular Heart Sounds: Present: S1 & S2. Absent: gallop, rub - Extremities Extremities: no ischemia, No edema, Full ROM - Abdominal General gastrointestinal: soft, non-tender, non-distended, normal bowel sounds - Integumentary Integumentary: Present: clear, warm, dry - Neurologic Neurologic: CNII-XII intact, moves all extremities Results - Labs CBC & Chem 7: 08/10/18 06:02 08/10/18 06:02 Labs: Laboratory Last Values WBC 8.1 K/mm3 (4.5-11.0) 08/10/18 06:02 RBC 5.11 M/mm3 (3.65-5.03) H 08/10/18 06:02 Hgb 15.9 gm/dl (11.8-15.2) H 08/10/18 06:02 Hct 47.6 % (35.5-45.6) H 08/10/18 06:02 MCV 93 fl (84-94) 08/10/18 06:02 MCH 31 pg (28-32) 08/10/18 06:02 MCHC 33 % (32-34) 08/10/18 06:02 RDW 13.5 % (13.2-15.2) 08/10/18 06:02 Plt Count 189 K/mm3 (140-440) 08/10/18 06:02 Lymph % (Auto) 12.3 % (13.4-35.0) L 08/03/18 05:00 [place] % (Auto) 10.9 % (0.0-7.3) H 08/03/18 05:00 Eos % (Auto) 2.8 % (0.0-4.3) 08/03/18 05:00 Baso % (Auto) 0.8 % (0.0-1.8) 08/03/18 05:00 Lymph # 0.9 K/mm3 (1.2-5.4) L 08/03/18 05:00 [place] # 0.8 K/mm3 (0.0-0.8) 08/03/18 05:00 Eos # 0.2 K/mm3 (0.0-0.4) 08/03/18 05:00 Baso # 0.1 K/mm3 (0.0-0.1) 08/03/18 05:00 Add Manual Diff Complete 08/10/18 06:02 Total Counted 100 08/10/18 06:02 Seg Neutrophils % Animation Camera Operator 08/10/18 06:02 Seg Neuts % (Manual) 91.0 % (40.0-70.0) H 08/10/18 06:02 Band Neutrophils % 6.0 % 08/10/18 06:02 Lymphocytes % (Manual) 2.0 % (13.4-35.0) L 08/10/18 06:02 Reactive Lymphs % (Man) 0 % 08/10/18 06:02 Monocytes % (Manual) 1.0 % (0.0-7.3) 08/10/18 06:02 Eosinophils % (Manual) 0 % (0.0-4.3) 08/10/18 06:02 Basophils % (Manual) 0 % (0.0-1.8) 08/10/18 06:02 Metamyelocytes % 0 % 08/10/18 06:02 Myelocytes % 0 % 08/10/18 06:02 Promyelocytes % 0 % 08/10/18 06:02 Blast Cells % 0 % 08/10/18 06:02 Nucleated RBC % Not Reportable 08/10/18 06:02 Seg Neutrophils # 5.5 K/mm3 (1.8-7.7) 08/03/18 05:00 Seg Neutrophils # Man 7.4 K/mm3 (1.8-7.7) 08/10/18 06:02 Band Neutrophils # 0.5 K/mm3 08/10/18 06:02 Lymphocytes # (Manual) 0.2 K/mm3 (1.2-5.4) L 08/10/18 06:02 Abs React Lymphs (Man) 0.0 K/mm3 08/10/18 06:02 Monocytes # (Manual) 0.1 K/mm3 (0.0-0.8) 08/10/18 06:02 Eosinophils # (Manual) 0.0 K/mm3 (0.0-0.4) 08/10/18 06:02 Basophils # (Manual) 0.0 K/mm3 (0.0-0.1) 08/10/18 06:02 Metamyelocytes # 0.0 K/mm3 08/10/18 06:02 Myelocytes # 0.0 K/mm3 08/10/18 06:02 Promyelocytes # 0.0 K/mm3 08/10/18 06:02 Blast Cells # 0.0 K/mm3 08/10/18 06:02 WBC Morphology Not Reportable 08/10/18 06:02 Hypersegmented Neuts Not Reportable 08/10/18 06:02 Hyposegmented Neuts Not Reportable 08/10/18 06:02 Hypogranular Neuts Not Reportable 08/10/18 06:02 Smudge Cells Not Reportable 08/10/18 06:02 Toxic Granulation Not Reportable 08/10/18 06:02 Toxic Vacuolation Not Reportable 08/10/18 06:02 Dohle Bodies Not Reportable 08/10/18 06:02 Pelger-Huet Anomaly Not Reportable 08/10/18 06:02 Amanda Rods Not Reportable 08/10/18 06:02 Platelet Estimate Appears normal 08/10/18 06:02 Clumped Platelets Not Reportable 08/10/18 06:02 Plt Clumps, EDTA Not Reportable 08/10/18 06:02 Large Platelets Not Reportable 08/10/18 06:02 Giant Platelets Not Reportable 08/10/18 06:02 Platelet Satelliting Not Reportable 08/10/18 06:02 Plt Morphology Comment Not Reportable 08/10/18 06:02 RBC Morphology Normal 08/10/18 06:02 Dimorphic RBCs Not Reportable 08/10/18 06:02 Polychromasia Not Reportable 08/10/18 06:02 Hypochromasia Not Reportable 08/10/18 06:02 Poikilocytosis Not Reportable 08/10/18 06:02 Anisocytosis Not Reportable 08/10/18 06:02 Microcytosis Not Reportable 08/10/18 06:02 Macrocytosis Not Reportable 08/10/18 06:02 Spherocytes Not Reportable 08/10/18 06:02 Pappenheimer Bodies Not Reportable 08/10/18 06:02 Sickle Cells Not Reportable 08/10/18 06:02 Target Cells Not Reportable 08/10/18 06:02 Tear Drop Cells Not Reportable 08/10/18 06:02 Ovalocytes Not Reportable 08/10/18 06:02 Helmet Cells Not Reportable 08/10/18 06:02 [place] Bodies Not Reportable 08/10/18 06:02 [place] Rings Not Reportable 08/10/18 06:02 Krissy Cells Not Reportable 08/10/18 06:02 Bite Cells Not Reportable 08/10/18 06:02 Crenated Cell Not Reportable 08/10/18 06:02 Elliptocytes Not Reportable 08/10/18 06:02 Acanthocytes (Spur) Not Reportable 08/10/18 06:02 Rouleaux Not Reportable 08/10/18 06:02 Hemoglobin C Crystals Not Reportable 08/10/18 06:02 Schistocytes Not Reportable 08/10/18 06:02 Malaria parasites Not Reportable 08/10/18 06:02 Elias Bodies Not Reportable 08/10/18 06:02 Hem Pathologist Commnt No 08/10/18 06:02 PT 11.3 Sec. (12.2-14.9) L 08/02/18 16:44 INR 0.78 (0.87-1.13) L 08/02/18 16:44 APTT 27.5 Sec. (24.2-36.6) 08/02/18 16:44 Sodium 133 mmol/L (137-145) L 08/10/18 06:02 Potassium 4.1 mmol/L (3.6-5.0) 08/10/18 06:02 Chloride 89.1 mmol/L (98-107) L 08/10/18 06:02 Carbon Dioxide 33 mmol/L (22-30) H 08/10/18 06:02 Anion Gap 15 mmol/L 08/10/18 06:02 BUN 34 mg/dL (9-20) H 08/10/18 06:02 Creatinine 1.0 mg/dL (0.8-1.5) 08/10/18 06:02 Estimated GFR > 60 ml/min 08/10/18 06:02 BUN/Creatinine Ratio 34 % 08/10/18 06:02 Glucose 323 mg/dL (75-100) H 08/10/18 06:02 POC Glucose 281 (70-105) H 08/12/18 11:36 Hemoglobin A1c 7.3 % (4-6) H 08/02/18 Unknown Calcium 8.7 mg/dL (8.4-10.2) 08/10/18 06:02 Magnesium 1.50 mg/dL (1.7-2.3) L 08/04/18 00:17 Total Bilirubin 0.40 mg/dL (0.1-1.2) 08/03/18 05:00 AST 22 units/L (5-40) 08/03/18 05:00 ALT 22 units/L (7-56) 08/03/18 05:00 Alkaline Phosphatase 87 units/L (35-129) 08/03/18 05:00 Troponin T < 0.010 ng/mL (0.00-0.029) 08/02/18 16:44 NT-Pro-B Natriuret Pep 4912 pg/mL (0-900) H 08/02/18 16:44 Total Protein 6.4 g/dL (6.3-8.2) 08/03/18 05:00 Albumin 3.9 g/dL (3.9-5) 08/03/18 05:00 Albumin/Globulin Ratio 1.6 % 08/03/18 05:00 Nutrition/Malnutrition Assess - Dietary Evaluation Nutrition/Malnutrition Findings: Nutrition Notes Start: 08/09/18 10:46 Freq: Status: Active Protocol: Document 08/09/18 10:46 LM (Rec: 08/09/18 11:08 LM [id number]) Co-Sign 08/09/18 10:46 OL Nutrition Notes Need for Assessment generated from: LOS Initial or Follow up Brief Note Subjective/Other Information Screen for LOS. Pt stated he has a good appetite now and prior to admission. Pt ate all of his breakfast this morning . Pt stated that any weight changes was due to fluid build up in legs and lower stomach. Pt said his fluid build up is decreasing. Pt's weight before fluid build up was 235 lb. Pt stated he takes metformin at home. Discussed diet for DM with pt. #1 Nutrition Diagnosis Food and nutrition-related knowledge deficit Etiology DM As Evidenced by Signs and Symptoms Pt requesting DM information and Hgb A1C 7.3 Nutrition Intervention Teaching Recipient Patient Learning Readiness Good Teaching Methods Discussion Handout Response to Teaching Verbalize understanding Education Handouts Provided CHO Counting for DM Barriers to Learning No Barriers RD phone number provided Yes Patient aware of follow up options Yes Revisit per MD consult or patient Sign Off request:
[2018-08-12] MEDS: LANTUS SUB-Q SCH (22:13)
[2018-08-13] MEDS: SOLU-Medrol IV SCH ×5 (00:26→23:58)
[2018-08-13] MEDS: PERCOCET 5/325 PO PRN ×3 (04:15→19:03)
[2018-08-13] MEDS: LASIX IV SCH ×2 (05:46→17:08)
[2018-08-13] MEDS: HEPARIN SUB-Q SCH ×2 (09:01→22:03)
[2018-08-13] MEDS: GLUCOPHAGE PO SCH ×2 (09:02→17:08)
[2018-08-13] MEDS: REVATIO PO SCH ×3 (09:02→22:02)
[2018-08-13] MEDS: PEPCID PO SCH ×2 (09:02→22:03)
[2018-08-13] MEDS: NEURONTIN PO SCH ×3 (09:02→22:02)
[2018-08-13] MEDS: LEVAQUIN PO SCH (09:02)
[2018-08-13] MEDS: HumaLOG SUB-Q SCH ×4 (09:03→22:13)
[2018-08-13] MEDS: SODIUM CHLORIDE FLUSH SYRINGE 10 ML IV SCH ×2 (09:03→22:03)
--- NOTE | 2018-08-13 09:10 | Progress Note ---
Assessment and Plan Assessment and plan: Acute on chronic respiratory failure. Continue O2 for supportive care. Etiology multifactorial secondary to COPD, CHF, ILD, OHS/DUANE, severe pulmonary hypertension and cor pulmonale. Wean oxygen to his home regimen of 2 L ILD. Per pulmonary ? Revatio COPD exacerbation. Continue bronchodilators and steroid treatment Cor pulmonale. Per pulmonary Severe pulmonary hypertension. Ventilation perfusion scan consistent with COPD, no evidence of chronic thrombo-embolic pulmonary hypertension. Echo with low ejection fraction of 45% and severe pressures at 79 mmHg. RLL pneumonia. 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 - At discharge Dr Paredes recommend prednisolone 60mg daily for life and bactrim for PCP prophylaxis due to steroid induced immune suppression. History Interval history: No new issues overnight. Patient still requiring 4 L of oxygen. His baseline is 2 L at home. Patient was weaned to 2 L yesterday with decrease in saturations to 85%. Hospitalist Physical - Constitutional Vitals: Temp Pulse Resp BP Pulse Ox 98.3 F 76 16 155/97 94 08/13/18 07:43 08/13/18 07:43 08/13/18 07:43 08/13/18 07:43 08/13/18 07:43 General appearance: Present: no acute distress - EENT Eyes: Present: PERRL, EOM intact ENT: hearing intact, clear oral mucosa, dentition normal - Neck Neck: Present: supple, normal ROM - Respiratory Respiratory effort: normal Respiratory: bilateral: CTA - Cardiovascular Rhythm: regular Heart Sounds: Present: S1 & S2. Absent: gallop, rub - Extremities Extremities: no ischemia, No edema, Full ROM - Abdominal General gastrointestinal: soft, non-tender, non-distended, normal bowel sounds - Integumentary Integumentary: Present: clear, warm, dry - Neurologic Neurologic: CNII-XII intact, moves all extremities Results - Labs CBC & Chem 7: 08/10/18 06:02 08/10/18 06:02 Labs: Laboratory Last Values WBC 8.1 K/mm3 (4.5-11.0) 08/10/18 06:02 RBC 5.11 M/mm3 (3.65-5.03) H 08/10/18 06:02 Hgb 15.9 gm/dl (11.8-15.2) H 08/10/18 06:02 Hct 47.6 % (35.5-45.6) H 08/10/18 06:02 MCV 93 fl (84-94) 08/10/18 06:02 MCH 31 pg (28-32) 08/10/18 06:02 MCHC 33 % (32-34) 08/10/18 06:02 RDW 13.5 % (13.2-15.2) 08/10/18 06:02 Plt Count 189 K/mm3 (140-440) 08/10/18 06:02 Lymph % (Auto) 12.3 % (13.4-35.0) L 08/03/18 05:00 [place] % (Auto) 10.9 % (0.0-7.3) H 08/03/18 05:00 Eos % (Auto) 2.8 % (0.0-4.3) 08/03/18 05:00 Baso % (Auto) 0.8 % (0.0-1.8) 08/03/18 05:00 Lymph # 0.9 K/mm3 (1.2-5.4) L 08/03/18 05:00 [place] # 0.8 K/mm3 (0.0-0.8) 08/03/18 05:00 Eos # 0.2 K/mm3 (0.0-0.4) 08/03/18 05:00 Baso # 0.1 K/mm3 (0.0-0.1) 08/03/18 05:00 Add Manual Diff Complete 08/10/18 06:02 Total Counted 100 08/10/18 06:02 Seg Neutrophils % Clinical Technologist 08/10/18 06:02 Seg Neuts % (Manual) 91.0 % (40.0-70.0) H 08/10/18 06:02 Band Neutrophils % 6.0 % 08/10/18 06:02 Lymphocytes % (Manual) 2.0 % (13.4-35.0) L 08/10/18 06:02 Reactive Lymphs % (Man) 0 % 08/10/18 06:02 Monocytes % (Manual) 1.0 % (0.0-7.3) 08/10/18 06:02 Eosinophils % (Manual) 0 % (0.0-4.3) 08/10/18 06:02 Basophils % (Manual) 0 % (0.0-1.8) 08/10/18 06:02 Metamyelocytes % 0 % 08/10/18 06:02 Myelocytes % 0 % 08/10/18 06:02 Promyelocytes % 0 % 08/10/18 06:02 Blast Cells % 0 % 08/10/18 06:02 Nucleated RBC % Not Reportable 08/10/18 06:02 Seg Neutrophils # 5.5 K/mm3 (1.8-7.7) 08/03/18 05:00 Seg Neutrophils # Man 7.4 K/mm3 (1.8-7.7) 08/10/18 06:02 Band Neutrophils # 0.5 K/mm3 08/10/18 06:02 Lymphocytes # (Manual) 0.2 K/mm3 (1.2-5.4) L 08/10/18 06:02 Abs React Lymphs (Man) 0.0 K/mm3 08/10/18 06:02 Monocytes # (Manual) 0.1 K/mm3 (0.0-0.8) 08/10/18 06:02 Eosinophils # (Manual) 0.0 K/mm3 (0.0-0.4) 08/10/18 06:02 Basophils # (Manual) 0.0 K/mm3 (0.0-0.1) 08/10/18 06:02 Metamyelocytes # 0.0 K/mm3 08/10/18 06:02 Myelocytes # 0.0 K/mm3 08/10/18 06:02 Promyelocytes # 0.0 K/mm3 08/10/18 06:02 Blast Cells # 0.0 K/mm3 08/10/18 06:02 WBC Morphology Not Reportable 08/10/18 06:02 Hypersegmented Neuts Not Reportable 08/10/18 06:02 Hyposegmented Neuts Not Reportable 08/10/18 06:02 Hypogranular Neuts Not Reportable 08/10/18 06:02 Smudge Cells Not Reportable 08/10/18 06:02 Toxic Granulation Not Reportable 08/10/18 06:02 Toxic Vacuolation Not Reportable 08/10/18 06:02 Dohle Bodies Not Reportable 08/10/18 06:02 Pelger-Huet Anomaly Not Reportable 08/10/18 06:02 Amanda Rods Not Reportable 08/10/18 06:02 Platelet Estimate Appears normal 08/10/18 06:02 Clumped Platelets Not Reportable 08/10/18 06:02 Plt Clumps, EDTA Not Reportable 08/10/18 06:02 Large Platelets Not Reportable 08/10/18 06:02 Giant Platelets Not Reportable 08/10/18 06:02 Platelet Satelliting Not Reportable 08/10/18 06:02 Plt Morphology Comment Not Reportable 08/10/18 06:02 RBC Morphology Normal 08/10/18 06:02 Dimorphic RBCs Not Reportable 08/10/18 06:02 Polychromasia Not Reportable 08/10/18 06:02 Hypochromasia Not Reportable 08/10/18 06:02 Poikilocytosis Not Reportable 08/10/18 06:02 Anisocytosis Not Reportable 08/10/18 06:02 Microcytosis Not Reportable 08/10/18 06:02 Macrocytosis Not Reportable 08/10/18 06:02 Spherocytes Not Reportable 08/10/18 06:02 Pappenheimer Bodies Not Reportable 08/10/18 06:02 Sickle Cells Not Reportable 08/10/18 06:02 Target Cells Not Reportable 08/10/18 06:02 Tear Drop Cells Not Reportable 08/10/18 06:02 Ovalocytes Not Reportable 08/10/18 06:02 Helmet Cells Not Reportable 08/10/18 06:02 [place] Bodies Not Reportable 08/10/18 06:02 [place] Rings Not Reportable 08/10/18 06:02 Krissy Cells Not Reportable 08/10/18 06:02 Bite Cells Not Reportable 08/10/18 06:02 Crenated Cell Not Reportable 08/10/18 06:02 Elliptocytes Not Reportable 08/10/18 06:02 Acanthocytes (Spur) Not Reportable 08/10/18 06:02 Rouleaux Not Reportable 08/10/18 06:02 Hemoglobin C Crystals Not Reportable 08/10/18 06:02 Schistocytes Not Reportable 08/10/18 06:02 Malaria parasites Not Reportable 08/10/18 06:02 Elias Bodies Not Reportable 08/10/18 06:02 Hem Pathologist Commnt No 08/10/18 06:02 PT 11.3 Sec. (12.2-14.9) L 08/02/18 16:44 INR 0.78 (0.87-1.13) L 08/02/18 16:44 APTT 27.5 Sec. (24.2-36.6) 08/02/18 16:44 Sodium 133 mmol/L (137-145) L 08/10/18 06:02 Potassium 4.1 mmol/L (3.6-5.0) 08/10/18 06:02 Chloride 89.1 mmol/L (98-107) L 08/10/18 06:02 Carbon Dioxide 33 mmol/L (22-30) H 08/10/18 06:02 Anion Gap 15 mmol/L 08/10/18 06:02 BUN 34 mg/dL (9-20) H 08/10/18 06:02 Creatinine 1.0 mg/dL (0.8-1.5) 08/10/18 06:02 Estimated GFR > 60 ml/min 08/10/18 06:02 BUN/Creatinine Ratio 34 % 08/10/18 06:02 Glucose 323 mg/dL (75-100) H 08/10/18 06:02 POC Glucose 235 (70-105) H 08/13/18 06:29 Hemoglobin A1c 7.3 % (4-6) H 08/02/18 Unknown Calcium 8.7 mg/dL (8.4-10.2) 08/10/18 06:02 Magnesium 1.50 mg/dL (1.7-2.3) L 08/04/18 00:17 Total Bilirubin 0.40 mg/dL (0.1-1.2) 08/03/18 05:00 AST 22 units/L (5-40) 08/03/18 05:00 ALT 22 units/L (7-56) 08/03/18 05:00 Alkaline Phosphatase 87 units/L (35-129) 08/03/18 05:00 Troponin T < 0.010 ng/mL (0.00-0.029) 08/02/18 16:44 NT-Pro-B Natriuret Pep 4912 pg/mL (0-900) H 08/02/18 16:44 Total Protein 6.4 g/dL (6.3-8.2) 08/03/18 05:00 Albumin 3.9 g/dL (3.9-5) 08/03/18 05:00 Albumin/Globulin Ratio 1.6 % 08/03/18 05:00 Nutrition/Malnutrition Assess - Dietary Evaluation Nutrition/Malnutrition Findings: Nutrition Notes Start: 08/09/18 10:46 Freq: Status: Active Protocol: Document 08/09/18 10:46 LM (Rec: 08/09/18 11:08 LM [id number]) Co-Sign 08/09/18 10:46 OL Nutrition Notes Need for Assessment generated from: LOS Initial or Follow up Brief Note Subjective/Other Information Screen for LOS. Pt stated he has a good appetite now and prior to admission. Pt ate all of his breakfast this morning . Pt stated that any weight changes was due to fluid build up in legs and lower stomach. Pt said his fluid build up is decreasing. Pt's weight before fluid build up was 235 lb. Pt stated he takes metformin at home. Discussed diet for DM with pt. #1 Nutrition Diagnosis Food and nutrition-related knowledge deficit Etiology DM As Evidenced by Signs and Symptoms Pt requesting DM information and Hgb A1C 7.3 Nutrition Intervention Teaching Recipient Patient Learning Readiness Good Teaching Methods Discussion Handout Response to Teaching Verbalize understanding Education Handouts Provided CHO Counting for DM Barriers to Learning No Barriers RD phone number provided Yes Patient aware of follow up options Yes Revisit per MD consult or patient Sign Off request:
[2018-08-13] MEDS: PULMICORT IH SCH ×2 (09:31→21:19)
[2018-08-13] MEDS: BROVANA NEBU IH SCH ×2 (09:31→21:19)
--- NOTE | 2018-08-13 12:26 | Progress Note ---
Assessment and Plan - Patient Problems (1) ILD (interstitial lung disease) Current Visit: Yes Status: Acute (2) Acute exacerbation of CHF (congestive heart failure) Current Visit: Yes Status: Acute Qualifiers: (3) Hypoxia Current Visit: Yes Status: Acute (4) Pulmonary edema Current Visit: Yes Status: Acute (5) Claudication Current Visit: No Status: Acute (6) Pneumonia involving right lung Current Visit: No Status: Acute (7) COPD (chronic obstructive pulmonary disease) Current Visit: No Status: Chronic Qualifiers: COPD type: unspecified COPD Qualified Code(s): J44.9 - Chronic obstructive pulmonary disease, unspecified (8) Diabetes Current Visit: No Status: Chronic (9) Hypertension Current Visit: No Status: Chronic Qualifiers: Hypertension type: essential hypertension Qualified Code(s): I10 - Essential (primary) hypertension (10) Acute and chronic respiratory failure ([id number]) Current Visit: Yes Status: Acute Subjective Principal diagnosis: COPD, ILD Interval history: feels better Objective Vital Signs - 12hr 08/13/18 08/13/18 08/13/18 04:53 07:43 09:31 Temperature 97.9 F 98.3 F Pulse Rate 74 76 Pulse Rate [ 82 Anterior Bilateral Throughout] Respiratory 20 16 Rate Respiratory 16 Rate [Anterior Bilateral Throughout] Blood Pressure 144/86 155/97 O2 Sat by Pulse 93 94 Oximetry 08/13/18 08/13/18 08/13/18 09:33 09:40 10:00 Temperature Pulse Rate 98 H Pulse Rate [ 96 H Anterior Bilateral Throughout] Respiratory Rate Respiratory 16 Rate [Anterior Bilateral Throughout] Blood Pressure O2 Sat by Pulse 94 Oximetry Constitutional: no acute distress, alert Eyes: icteric, other (OS eyelid drop) ENT: oropharynx moist Neck: supple, no JVD Effort: normal Ascultation: Bilateral: rales (rare) Percussion: Bilateral: not dull Tactile fremitus: Bilateral: normal Cardiovascular: regular rate and rhythm Gastrointestinal: normoactive bowel sounds, soft, non-tender Extremities: no edema, cyanosis Neurologic: normal mental status Psychiatric: mood appropriate CBC and BMP: 08/10/18 06:02 08/10/18 06:02 ABG, PT/INR, D-dimer: PT/INR, D-dimer PT 11.3 Sec. (12.2-14.9) L 08/02/18 16:44 INR 0.78 (0.87-1.13) L 08/02/18 16:44 Abnormal lab findings: Abnormal Labs 08/02/18 08/02/18 08/02/18 16:25 16:25 16:44 RBC Hgb 15.3 H Hct 45.8 H MCV 95 H Lymph % (Auto) 6.7 L [place] % (Auto) 8.8 H Lymph # 0.5 L Seg Neutrophils % 82.5 H Seg Neuts % (Manual) Lymphocytes % (Manual) Lymphocytes # (Manual) PT 11.3 L INR 0.78 L Sodium 134 L Potassium Chloride 97.8 L Carbon Dioxide BUN Creatinine Glucose 126 H POC Glucose Hemoglobin A1c Magnesium NT-Pro-B Natriuret Pep 08/02/18 08/02/18 08/03/18 16:44 Unknown 05:00 RBC Hgb Hct MCV 95 H Lymph % (Auto) 12.3 L [place] % (Auto) 10.9 H Lymph # 0.9 L Seg Neutrophils % 73.2 H Seg Neuts % (Manual) Lymphocytes % (Manual) Lymphocytes # (Manual) PT INR Sodium Potassium Chloride Carbon Dioxide BUN Creatinine Glucose POC Glucose Hemoglobin A1c 7.3 H Magnesium NT-Pro-B Natriuret Pep 4912 H 08/03/18 08/03/18 08/04/18 05:00 21:46 00:17 RBC Hgb Hct MCV Lymph % (Auto) [place] % (Auto) Lymph # Seg Neutrophils % Seg Neuts % (Manual) Lymphocytes % (Manual) Lymphocytes # (Manual) PT INR Sodium Potassium Chloride Carbon Dioxide BUN Creatinine 0.7 L Glucose POC Glucose 207 H Hemoglobin A1c Magnesium 1.50 L NT-Pro-B Natriuret Pep 08/04/18 08/04/18 08/04/18 05:18 05:18 06:32 RBC Hgb Hct MCV Lymph % (Auto) [place] % (Auto) Lymph # Seg Neutrophils % Seg Neuts % (Manual) 93.0 H Lymphocytes % (Manual) 1.0 L Lymphocytes # (Manual) 0.1 L PT INR Sodium 134 L Potassium Chloride 91.9 L Carbon Dioxide BUN Creatinine 0.7 L Glucose 243 H POC Glucose 216 H Hemoglobin A1c Magnesium NT-Pro-B Natriuret Pep 08/04/18 08/04/18 08/04/18 06:48 12:51 21:23 RBC Hgb Hct MCV Lymph % (Auto) [place] % (Auto) Lymph # Seg Neutrophils % Seg Neuts % (Manual) Lymphocytes % (Manual) Lymphocytes # (Manual) PT INR Sodium Potassium Chloride Carbon Dioxide BUN Creatinine Glucose POC Glucose 220 H 202 H 278 H Hemoglobin A1c Magnesium NT-Pro-B Natriuret Pep 08/05/18 08/05/18 08/05/18 06:33 10:40 15:20 RBC Hgb Hct MCV Lymph % (Auto) [place] % (Auto) Lymph # Seg Neutrophils % Seg Neuts % (Manual) Lymphocytes % (Manual) Lymphocytes # (Manual) PT INR Sodium Potassium Chloride Carbon Dioxide BUN Creatinine Glucose POC Glucose 266 H 233 H 241 H Hemoglobin A1c Magnesium NT-Pro-B Natriuret Pep 08/06/18 08/06/18 08/06/18 00:01 05:49 11:14 RBC Hgb Hct MCV Lymph % (Auto) [place] % (Auto) Lymph # Seg Neutrophils % Seg Neuts % (Manual) Lymphocytes % (Manual) Lymphocytes # (Manual) PT INR Sodium 132 L Potassium 5.5 H Chloride 90.1 L Carbon Dioxide 31 H BUN 27 H Creatinine Glucose 283 H POC Glucose 334 H 266 H Hemoglobin A1c Magnesium NT-Pro-B Natriuret Pep 08/06/18 08/06/18 08/07/18 16:49 21:22 05:35 RBC Hgb Hct MCV Lymph % (Auto) [place] % (Auto) Lymph # Seg Neutrophils % Seg Neuts % (Manual) Lymphocytes % (Manual) Lymphocytes # (Manual) PT INR Sodium 136 L Potassium Chloride 92.2 L Carbon Dioxide 34 H BUN 38 H Creatinine Glucose 281 H POC Glucose 297 H 164 H Hemoglobin A1c Magnesium NT-Pro-B Natriuret Pep 08/07/18 08/07/18 08/07/18 05:57 11:44 16:53 RBC Hgb Hct MCV Lymph % (Auto) [place] % (Auto) Lymph # Seg Neutrophils % Seg Neuts % (Manual) Lymphocytes % (Manual) Lymphocytes # (Manual) PT INR Sodium Potassium Chloride Carbon Dioxide BUN Creatinine Glucose POC Glucose 228 H 213 H 171 H Hemoglobin A1c Magnesium NT-Pro-B Natriuret Pep 08/07/18 08/08/18 08/08/18 21:53 06:11 12:02 RBC Hgb Hct MCV Lymph % (Auto) [place] % (Auto) Lymph # Seg Neutrophils % Seg Neuts % (Manual) Lymphocytes % (Manual) Lymphocytes # (Manual) PT INR Sodium Potassium Chloride Carbon Dioxide BUN Creatinine Glucose POC Glucose 349 H 256 H 291 H Hemoglobin A1c Magnesium NT-Pro-B Natriuret Pep 08/08/18 08/08/18 08/09/18 16:50 20:40 05:22 RBC Hgb Hct MCV Lymph % (Auto) [place] % (Auto) Lymph # Seg Neutrophils % Seg Neuts % (Manual) Lymphocytes % (Manual) Lymphocytes # (Manual) PT INR Sodium Potassium Chloride Carbon Dioxide BUN Creatinine Glucose POC Glucose 209 H 217 H 225 H Hemoglobin A1c Magnesium NT-Pro-B Natriuret Pep 08/09/18 08/09/18 08/09/18 11:45 17:26 21:52 RBC Hgb Hct MCV Lymph % (Auto) [place] % (Auto) Lymph # Seg Neutrophils % Seg Neuts % (Manual) Lymphocytes % (Manual) Lymphocytes # (Manual) PT INR Sodium Potassium Chloride Carbon Dioxide BUN Creatinine Glucose POC Glucose 293 H 280 H 316 H Hemoglobin A1c Magnesium NT-Pro-B Natriuret [place] 08/10/18 08/10/18 08/10/18 06:02 06:02 06:11 RBC 5.11 H Hgb 15.9 H Hct 47.6 H MCV Lymph % (Auto) [place] % (Auto) Lymph # Seg Neutrophils % Seg Neuts % (Manual) 91.0 H Lymphocytes % (Manual) 2.0 L Lymphocytes # (Manual) 0.2 L PT INR Sodium 133 L Potassium Chloride 89.1 L Carbon Dioxide 33 H BUN 34 H Creatinine Glucose 323 H POC Glucose 281 H Hemoglobin A1c Magnesium NT-Pro-B Natriuret [place] 08/10/18 08/10/18 08/10/18 13:02 17:12 21:24 RBC Hgb Hct MCV Lymph % (Auto) [place] % (Auto) Lymph # Seg Neutrophils % Seg Neuts % (Manual) Lymphocytes % (Manual) Lymphocytes # (Manual) PT INR Sodium Potassium Chloride Carbon Dioxide BUN Creatinine Glucose POC Glucose 237 H 284 H 318 H Hemoglobin A1c Magnesium NT-Pro-B Natriuret Pep 08/11/18 08/11/18 08/11/18 06:09 12:09 16:30 RBC Hgb Hct MCV Lymph % (Auto) [place] % (Auto) Lymph # Seg Neutrophils % Seg Neuts % (Manual) Lymphocytes % (Manual) Lymphocytes # (Manual) PT INR Sodium Potassium Chloride Carbon Dioxide BUN Creatinine Glucose POC Glucose 237 H 259 H 249 H Hemoglobin A1c Magnesium NT-Pro-B Natriuret Pep 08/11/18 08/12/18 08/12/18 21:16 06:46 11:36 RBC Hgb Hct MCV Lymph % (Auto) [place] % (Auto) Lymph # Seg Neutrophils % Seg Neuts % (Manual) Lymphocytes % (Manual) Lymphocytes # (Manual) PT INR Sodium Potassium Chloride Carbon Dioxide BUN Creatinine Glucose POC Glucose 269 H 234 H 281 H Hemoglobin A1c Magnesium NT-Pro-B Natriuret Pep 08/12/18 08/12/18 08/13/18 15:54 21:07 06:29 RBC Hgb Hct MCV Lymph % (Auto) [place] % (Auto) Lymph # Seg Neutrophils % Seg Neuts % (Manual) Lymphocytes % (Manual) Lymphocytes # (Manual) PT INR Sodium Potassium Chloride Carbon Dioxide BUN Creatinine Glucose POC Glucose 146 H 316 H 235 H Hemoglobin A1c Magnesium NT-Pro-B Natriuret Pep 08/13/18 11:04 RBC Hgb Hct MCV Lymph % (Auto) [place] % (Auto) Lymph # Seg Neutrophils % Seg Neuts % (Manual) Lymphocytes % (Manual) Lymphocytes # (Manual) PT INR Sodium Potassium Chloride Carbon Dioxide BUN Creatinine Glucose POC Glucose 286 H Hemoglobin A1c Magnesium NT-Pro-B Natriuret Pep
[2018-08-13] MEDS: XANAX PO PRN ×2 (12:44→22:09)
[2018-08-13] MEDS: LANTUS SUB-Q SCH (22:13)
[2018-08-14] MEDS: PERCOCET 5/325 PO PRN (00:57)
[2018-08-14] MEDS: SOLU-Medrol IV SCH ×2 (05:26→16:59)
[2018-08-14] MEDS: LASIX IV SCH ×2 (05:27→16:59)
[2018-08-14] MEDS: DILAUDID IV PRN ×3 (08:19→20:40)
--- NOTE | 2018-08-14 09:35 | Progress Note ---
Assessment and Plan 57 y/o male with systolic heart failure and severe pulmonary hypertension, also tobacco abuse and possibly underlying COPD 1. Pulm HTN- As stated previously, likely multifactorial. Patient has had improvement on current therapy. At discharge, please send out on Revatio TID (if he can afford it), Prednisone 60 daily and then bactrim DS for PCP prophylaxis and lasix 60 daily. Patient also will need a walk test and make sure that on the current oxygen level he can maintain sats >88%. He will need a nighttime pulse ox but this can be set up from the office. 2. ILD-patient needs connective tissue work up, most likely this is IPF. 3. Tobacco Abuse-Continue BID wellbutrin at discharge. 4. Of note, I did not recommend Prednisone therapy for life, there is a difference between indefinitely and permanently. Also, the patient does not have an outside [place] [employer] and would like to follow up with us. Will arrange follow up with Dr. Leal. No objection to discharge today. Subjective Date of service: 08/14/18 Principal diagnosis: COPD, ILD Interval history: No acute events. Still on Oxygen. Per patient actually wears 3 liters at home and does not have a lung doctor. Wants to go home. Objective Vital Signs - 12hr 08/13/18 08/13/18 08/13/18 21:40 22:35 23:59 Temperature 98.2 F Pulse Rate 117 H Pulse Rate [ 86 Anterior Bilateral Throughout] Pulse Rate [ 92 H Apical] Respiratory 18 20 Rate Respiratory 16 Rate [Anterior Bilateral Throughout] Respiratory Rate [Left Foot ] Blood Pressure 124/83 O2 Sat by Pulse 93 98 Oximetry 08/14/18 08/14/18 08/14/18 00:57 01:57 02:24 Temperature Pulse Rate Pulse Rate [ Anterior Bilateral Throughout] Pulse Rate [ Apical] Respiratory 18 18 Rate Respiratory Rate [Anterior Bilateral Throughout] Respiratory 18 Rate [Left Foot ] Blood Pressure O2 Sat by Pulse Oximetry 08/14/18 04:42 Temperature 97.8 F Pulse Rate 119 H Pulse Rate [ Anterior Bilateral Throughout] Pulse Rate [ Apical] Respiratory 20 Rate Respiratory Rate [Anterior Bilateral Throughout] Respiratory Rate [Left Foot ] Blood Pressure 115/78 O2 Sat by Pulse 91 Oximetry Constitutional: no acute distress, alert Eyes: icteric, other (OS eyelid drop) ENT: oropharynx moist Neck: supple, no JVD Effort: normal Ascultation: Bilateral: diminished breath sounds, wheezes (very faint, occasional), rales (rare) Percussion: Bilateral: not dull Tactile fremitus: Bilateral: normal Cardiovascular: regular rate and rhythm Gastrointestinal: normoactive bowel sounds, soft, non-tender Extremities: no edema, cyanosis Neurologic: normal mental status Psychiatric: mood appropriate CBC and BMP: 08/10/18 06:02 08/10/18 06:02 ABG, PT/INR, D-dimer: ABG POC ABG pH 7.429 (7.35-7.45) 08/13/18 15:08 POC ABG pCO2 54.0 (35-45) H 08/13/18 15:08 POC ABG pO2 74 (80-105) L 08/13/18 15:08 POC ABG HCO3 35.7 08/13/18 15:08 POC ABG Total CO2 37 08/13/18 15:08 POC ABG O2 Sat 95 08/13/18 15:08 PT/INR, D-dimer PT 11.3 Sec. (12.2-14.9) L 08/02/18 16:44 INR 0.78 (0.87-1.13) L 08/02/18 16:44 Abnormal lab findings: Abnormal Labs 08/02/18 08/02/18 08/02/18 16:25 16:25 16:44 RBC Hgb 15.3 H Hct 45.8 H MCV 95 H Lymph % (Auto) 6.7 L [place] % (Auto) 8.8 H Lymph # 0.5 L Seg Neutrophils % 82.5 H Seg Neuts % (Manual) Lymphocytes % (Manual) Lymphocytes # (Manual) PT 11.3 L INR 0.78 L POC ABG pCO2 POC ABG pO2 Sodium 134 L Potassium Chloride 97.8 L Carbon Dioxide BUN Creatinine Glucose 126 H POC Glucose Hemoglobin A1c Magnesium NT-Pro-B Natriuret Pep 08/02/18 08/02/18 08/03/18 16:44 Unknown 05:00 RBC Hgb Hct MCV 95 H Lymph % (Auto) 12.3 L [place] % (Auto) 10.9 H Lymph # 0.9 L Seg Neutrophils % 73.2 H Seg Neuts % (Manual) Lymphocytes % (Manual) Lymphocytes # (Manual) PT INR POC ABG pCO2 POC ABG pO2 Sodium Potassium Chloride Carbon Dioxide BUN Creatinine Glucose POC Glucose Hemoglobin A1c 7.3 H Magnesium NT-Pro-B Natriuret Pep 4912 H 08/03/18 08/03/18 08/04/18 05:00 21:46 00:17 RBC Hgb Hct MCV Lymph % (Auto) [place] % (Auto) Lymph # Seg Neutrophils % Seg Neuts % (Manual) Lymphocytes % (Manual) Lymphocytes # (Manual) PT INR POC ABG pCO2 POC ABG pO2 Sodium Potassium Chloride Carbon Dioxide BUN Creatinine 0.7 L Glucose POC Glucose 207 H Hemoglobin A1c Magnesium 1.50 L NT-Pro-B Natriuret Pep 08/04/18 08/04/18 08/04/18 05:18 05:18 06:32 RBC Hgb Hct MCV Lymph % (Auto) [place] % (Auto) Lymph # Seg Neutrophils % Seg Neuts % (Manual) 93.0 H Lymphocytes % (Manual) 1.0 L Lymphocytes # (Manual) 0.1 L PT INR POC ABG pCO2 POC ABG pO2 Sodium 134 L Potassium Chloride 91.9 L Carbon Dioxide BUN Creatinine 0.7 L Glucose 243 H POC Glucose 216 H Hemoglobin A1c Magnesium NT-Pro-B Natriuret Pep 08/04/18 08/04/18 08/04/18 06:48 12:51 21:23 RBC Hgb Hct MCV Lymph % (Auto) [place] % (Auto) Lymph # Seg Neutrophils % Seg Neuts % (Manual) Lymphocytes % (Manual) Lymphocytes # (Manual) PT INR POC ABG pCO2 POC ABG pO2 Sodium Potassium Chloride Carbon Dioxide BUN Creatinine Glucose POC Glucose 220 H 202 H 278 H Hemoglobin A1c Magnesium NT-Pro-B Natriuret Pep 08/05/18 08/05/18 08/05/18 06:33 10:40 15:20 RBC Hgb Hct MCV Lymph % (Auto) [place] % (Auto) Lymph # Seg Neutrophils % Seg Neuts % (Manual) Lymphocytes % (Manual) Lymphocytes # (Manual) PT INR POC ABG pCO2 POC ABG pO2 Sodium Potassium Chloride Carbon Dioxide BUN Creatinine Glucose POC Glucose 266 H 233 H 241 H Hemoglobin A1c Magnesium NT-Pro-B Natriuret Pep 08/06/18 08/06/18 08/06/18 00:01 05:49 11:14 RBC Hgb Hct MCV Lymph % (Auto) [place] % (Auto) Lymph # Seg Neutrophils % Seg Neuts % (Manual) Lymphocytes % (Manual) Lymphocytes # (Manual) PT INR POC ABG pCO2 POC ABG pO2 Sodium 132 L Potassium 5.5 H Chloride 90.1 L Carbon Dioxide 31 H BUN 27 H Creatinine Glucose 283 H POC Glucose 334 H 266 H Hemoglobin A1c Magnesium NT-Pro-B Natriuret Pep 08/06/18 08/06/18 08/07/18 16:49 21:22 05:35 RBC Hgb Hct MCV Lymph % (Auto) [place] % (Auto) Lymph # Seg Neutrophils % Seg Neuts % (Manual) Lymphocytes % (Manual) Lymphocytes # (Manual) PT INR POC ABG pCO2 POC ABG pO2 Sodium 136 L Potassium Chloride 92.2 L Carbon Dioxide 34 H BUN 38 H Creatinine Glucose 281 H POC Glucose 297 H 164 H Hemoglobin A1c Magnesium NT-Pro-B Natriuret Pep 08/07/18 08/07/18 08/07/18 05:57 11:44 16:53 RBC Hgb Hct MCV Lymph % (Auto) [place] % (Auto) Lymph # Seg Neutrophils % Seg Neuts % (Manual) Lymphocytes % (Manual) Lymphocytes # (Manual) PT INR POC ABG pCO2 POC ABG pO2 Sodium Potassium Chloride Carbon Dioxide BUN Creatinine Glucose POC Glucose 228 H 213 H 171 H Hemoglobin A1c Magnesium NT-Pro-B Natriuret Pep 08/07/18 08/08/18 08/08/18 21:53 06:11 12:02 RBC Hgb Hct MCV Lymph % (Auto) [place] % (Auto) Lymph # Seg Neutrophils % Seg Neuts % (Manual) Lymphocytes % (Manual) Lymphocytes # (Manual) PT INR POC ABG pCO2 POC ABG pO2 Sodium Potassium Chloride Carbon Dioxide BUN Creatinine Glucose POC Glucose 349 H 256 H 291 H Hemoglobin A1c Magnesium NT-Pro-B Natriuret Pep 08/08/18 08/08/18 08/09/18 16:50 20:40 05:22 RBC Hgb Hct MCV Lymph % (Auto) [place] % (Auto) Lymph # Seg Neutrophils % Seg Neuts % (Manual) Lymphocytes % (Manual) Lymphocytes # (Manual) PT INR POC ABG pCO2 POC ABG pO2 Sodium Potassium Chloride Carbon Dioxide BUN Creatinine Glucose POC Glucose 209 H 217 H 225 H Hemoglobin A1c Magnesium NT-Pro-B Natriuret Pep 08/09/18 08/09/18 08/09/18 11:45 17:26 21:52 RBC Hgb Hct MCV Lymph % (Auto) [place] % (Auto) Lymph # Seg Neutrophils % Seg Neuts % (Manual) Lymphocytes % (Manual) Lymphocytes # (Manual) PT INR POC ABG pCO2 POC ABG pO2 Sodium Potassium Chloride Carbon Dioxide BUN Creatinine Glucose POC Glucose 293 H 280 H 316 H Hemoglobin A1c Magnesium NT-Pro-B Natriuret Pep 08/10/18 08/10/18 08/10/18 06:02 06:02 06:11 RBC 5.11 H Hgb 15.9 H Hct 47.6 H MCV Lymph % (Auto) [place] % (Auto) Lymph # Seg Neutrophils % Seg Neuts % (Manual) 91.0 H Lymphocytes % (Manual) 2.0 L Lymphocytes # (Manual) 0.2 L PT INR POC ABG pCO2 POC ABG pO2 Sodium 133 L Potassium Chloride 89.1 L Carbon Dioxide 33 H BUN 34 H Creatinine Glucose 323 H POC Glucose 281 H Hemoglobin A1c Magnesium NT-Pro-B Natriuret Pep 08/10/18 08/10/18 08/10/18 13:02 17:12 21:24 RBC Hgb Hct MCV Lymph % (Auto) [place] % (Auto) Lymph # Seg Neutrophils % Seg Neuts % (Manual) Lymphocytes % (Manual) Lymphocytes # (Manual) PT INR POC ABG pCO2 POC ABG pO2 Sodium Potassium Chloride Carbon Dioxide BUN Creatinine Glucose POC Glucose 237 H 284 H 318 H Hemoglobin A1c Magnesium NT-Pro-B Natriuret Pep 08/11/18 08/11/18 08/11/18 06:09 12:09 16:30 RBC Hgb Hct MCV Lymph % (Auto) [place] % (Auto) Lymph # Seg Neutrophils % Seg Neuts % (Manual) Lymphocytes % (Manual) Lymphocytes # (Manual) PT INR POC ABG pCO2 POC ABG pO2 Sodium Potassium Chloride Carbon Dioxide BUN Creatinine Glucose POC Glucose 237 H 259 H 249 H Hemoglobin A1c Magnesium NT-Pro-B Natriuret Pep 08/11/18 08/12/18 08/12/18 21:16 06:46 11:36 RBC Hgb Hct MCV Lymph % (Auto) [place] % (Auto) Lymph # Seg Neutrophils % Seg Neuts % (Manual) Lymphocytes % (Manual) Lymphocytes # (Manual) PT INR POC ABG pCO2 POC ABG pO2 Sodium Potassium Chloride Carbon Dioxide BUN Creatinine Glucose POC Glucose 269 H 234 H 281 H Hemoglobin A1c Magnesium NT-Pro-B Natriuret Pep 08/12/18 08/12/18 08/13/18 15:54 21:07 06:29 RBC Hgb Hct MCV Lymph % (Auto) [place] % (Auto) Lymph # Seg Neutrophils % Seg Neuts % (Manual) Lymphocytes % (Manual) Lymphocytes # (Manual) PT INR POC ABG pCO2 POC ABG pO2 Sodium Potassium Chloride Carbon Dioxide BUN Creatinine Glucose POC Glucose 146 H 316 H 235 H Hemoglobin A1c Magnesium NT-Pro-B Natriuret Pep 08/13/18 08/13/18 08/13/18 11:04 15:08 15:15 RBC Hgb Hct MCV Lymph % (Auto) [place] % (Auto) Lymph # Seg Neutrophils % Seg Neuts % (Manual) Lymphocytes % (Manual) Lymphocytes # (Manual) PT INR POC ABG pCO2 54.0 H POC ABG pO2 74 L Sodium Potassium Chloride Carbon Dioxide BUN Creatinine Glucose POC Glucose 286 H 228 H Hemoglobin A1c Magnesium NT-Pro-B Natriuret Pep 08/13/18 08/14/18 22:15 06:55 RBC Hgb Hct MCV Lymph % (Auto) [place] % (Auto) Lymph # Seg Neutrophils % Seg Neuts % (Manual) Lymphocytes % (Manual) Lymphocytes # (Manual) PT INR POC ABG pCO2 POC ABG pO2 Sodium Potassium Chloride Carbon Dioxide BUN Creatinine Glucose POC Glucose 321 H 310 H Hemoglobin A1c Magnesium NT-Pro-B Natriuret Pep
[2018-08-14] MEDS: PULMICORT IH SCH ×2 (09:54→21:08)
[2018-08-14] MEDS: LEVAQUIN PO SCH (09:54)
[2018-08-14] MEDS: NEURONTIN PO SCH ×3 (09:54→20:40)
[2018-08-14] MEDS: BROVANA NEBU IH SCH ×2 (09:54→21:08)
[2018-08-14] MEDS: HEPARIN SUB-Q SCH ×2 (09:54→21:47)
[2018-08-14] MEDS: GLUCOPHAGE PO SCH ×2 (09:55→17:00)
[2018-08-14] MEDS: HumaLOG SUB-Q SCH ×4 (09:55→22:20)
[2018-08-14] MEDS: REVATIO PO SCH ×3 (09:55→20:40)
[2018-08-14] MEDS: PEPCID PO SCH ×2 (09:55→21:47)
[2018-08-14] MEDS: SODIUM CHLORIDE FLUSH SYRINGE 10 ML IV SCH ×2 (09:56→22:18)
[2018-08-14] MEDS ORDERED: SOLU-Medrol IV SCH (10:00)
[2018-08-14] MEDS: XANAX PO PRN (10:09)
--- NOTE | 2018-08-14 10:59 | Progress Note ---
Assessment and Plan Assessment and plan: Acute on chronic respiratory failure. Continue O2 for supportive care. Etiology multifactorial secondary to COPD, CHF, ILD, OHS/DUANE, severe pulmonary hypertension and cor pulmonale. Wean oxygen to his home regimen of 2 L. Perform walk test today to assess O2 requirements. I discussed the case with Dr Ivis Paredes. ILD. Per pulmonary ? Revatio COPD exacerbation. Continue bronchodilators and steroid treatment Cor pulmonale. Per pulmonary Severe pulmonary hypertension. Ventilation perfusion scan consistent with COPD, no evidence of chronic thrombo-embolic pulmonary hypertension. Echo with low ejection fraction of 45% and severe pressures at 79 mmHg. RLL pneumonia. Continue antibiotics Acute on Chronic combined CHF Morbid obesity Tobacco dependence - [employer] Lead on smoking cessation Hyperlipidemia; continue statin Diabetes mellitus type II, uncontrolled - ON ssi and increase lantus qhs DVT prophylaxis - On heparin DisPosition Case management reports patient will return to home with home health. - At discharge Dr Paredes recommend prednisolone 60mg daily until follow-up as an outpatient with pulmonology and bactrim for PCP prophylaxis due to steroid induced immune suppression. Anticipate discharge this afternoon or in a.m. depending on results of walk test. History Interval history: No new issues overnight. Patient still requiring 4 L of oxygen. His baseline is 2 L at home. Patient was weaned to 3 L yesterday Hospitalist Physical - Constitutional Vitals: Temp Pulse Resp BP Pulse Ox 97.4 F L 108 H 16 130/87 94 08/14/18 09:34 08/14/18 09:34 08/14/18 09:34 08/14/18 09:34 08/14/18 09:34 General appearance: Present: no acute distress - EENT Eyes: Present: PERRL, EOM intact ENT: hearing intact, clear oral mucosa, dentition normal - Neck Neck: Present: supple, normal ROM - Respiratory Respiratory effort: normal Respiratory: bilateral: CTA - Cardiovascular Rhythm: regular Heart Sounds: Present: S1 & S2. Absent: gallop, rub - Extremities Extremities: no ischemia, No edema, Full ROM - Abdominal General gastrointestinal: soft, non-tender, non-distended, normal bowel sounds - Integumentary Integumentary: Present: clear, warm, dry - Neurologic Neurologic: CNII-XII intact, moves all extremities Results - Labs CBC & Chem 7: 08/10/18 06:02 08/10/18 06:02 Labs: Laboratory Last Values WBC 8.1 K/mm3 (4.5-11.0) 08/10/18 06:02 RBC 5.11 M/mm3 (3.65-5.03) H 08/10/18 06:02 Hgb 15.9 gm/dl (11.8-15.2) H 08/10/18 06:02 Hct 47.6 % (35.5-45.6) H 08/10/18 06:02 MCV 93 fl (84-94) 08/10/18 06:02 MCH 31 pg (28-32) 08/10/18 06:02 MCHC 33 % (32-34) 08/10/18 06:02 RDW 13.5 % (13.2-15.2) 08/10/18 06:02 Plt Count 189 K/mm3 (140-440) 08/10/18 06:02 Lymph % (Auto) 12.3 % (13.4-35.0) L 08/03/18 05:00 [place] % (Auto) 10.9 % (0.0-7.3) H 08/03/18 05:00 Eos % (Auto) 2.8 % (0.0-4.3) 08/03/18 05:00 Baso % (Auto) 0.8 % (0.0-1.8) 08/03/18 05:00 Lymph # 0.9 K/mm3 (1.2-5.4) L 08/03/18 05:00 [place] # 0.8 K/mm3 (0.0-0.8) 08/03/18 05:00 Eos # 0.2 K/mm3 (0.0-0.4) 08/03/18 05:00 Baso # 0.1 K/mm3 (0.0-0.1) 08/03/18 05:00 Add Manual Diff Complete 08/10/18 06:02 Total Counted 100 08/10/18 06:02 Seg Neutrophils % Automatic Cigar Wrapper Tender 08/10/18 06:02 Seg Neuts % (Manual) 91.0 % (40.0-70.0) H 08/10/18 06:02 Band Neutrophils % 6.0 % 08/10/18 06:02 Lymphocytes % (Manual) 2.0 % (13.4-35.0) L 08/10/18 06:02 Reactive Lymphs % (Man) 0 % 08/10/18 06:02 Monocytes % (Manual) 1.0 % (0.0-7.3) 08/10/18 06:02 Eosinophils % (Manual) 0 % (0.0-4.3) 08/10/18 06:02 Basophils % (Manual) 0 % (0.0-1.8) 08/10/18 06:02 Metamyelocytes % 0 % 08/10/18 06:02 Myelocytes % 0 % 08/10/18 06:02 Promyelocytes % 0 % 08/10/18 06:02 Blast Cells % 0 % 08/10/18 06:02 Nucleated RBC % Not Reportable 08/10/18 06:02 Seg Neutrophils # 5.5 K/mm3 (1.8-7.7) 08/03/18 05:00 Seg Neutrophils # Man 7.4 K/mm3 (1.8-7.7) 08/10/18 06:02 Band Neutrophils # 0.5 K/mm3 08/10/18 06:02 Lymphocytes # (Manual) 0.2 K/mm3 (1.2-5.4) L 08/10/18 06:02 Abs React Lymphs (Man) 0.0 K/mm3 08/10/18 06:02 Monocytes # (Manual) 0.1 K/mm3 (0.0-0.8) 08/10/18 06:02 Eosinophils # (Manual) 0.0 K/mm3 (0.0-0.4) 08/10/18 06:02 Basophils # (Manual) 0.0 K/mm3 (0.0-0.1) 08/10/18 06:02 Metamyelocytes # 0.0 K/mm3 08/10/18 06:02 Myelocytes # 0.0 K/mm3 08/10/18 06:02 Promyelocytes # 0.0 K/mm3 08/10/18 06:02 Blast Cells # 0.0 K/mm3 08/10/18 06:02 WBC Morphology Not Reportable 08/10/18 06:02 Hypersegmented Neuts Not Reportable 08/10/18 06:02 Hyposegmented Neuts Not Reportable 08/10/18 06:02 Hypogranular Neuts Not Reportable 08/10/18 06:02 Smudge Cells Not Reportable 08/10/18 06:02 Toxic Granulation Not Reportable 08/10/18 06:02 Toxic Vacuolation Not Reportable 08/10/18 06:02 Dohle Bodies Not Reportable 08/10/18 06:02 Pelger-Huet Anomaly Not Reportable 08/10/18 06:02 Amanda Rods Not Reportable 08/10/18 06:02 Platelet Estimate Appears normal 08/10/18 06:02 Clumped Platelets Not Reportable 08/10/18 06:02 Plt Clumps, EDTA Not Reportable 08/10/18 06:02 Large Platelets Not Reportable 08/10/18 06:02 Giant Platelets Not Reportable 08/10/18 06:02 Platelet Satelliting Not Reportable 08/10/18 06:02 Plt Morphology Comment Not Reportable 08/10/18 06:02 RBC Morphology Normal 08/10/18 06:02 Dimorphic RBCs Not Reportable 08/10/18 06:02 Polychromasia Not Reportable 08/10/18 06:02 Hypochromasia Not Reportable 08/10/18 06:02 Poikilocytosis Not Reportable 08/10/18 06:02 Anisocytosis Not Reportable 08/10/18 06:02 Microcytosis Not Reportable 08/10/18 06:02 Macrocytosis Not Reportable 08/10/18 06:02 Spherocytes Not Reportable 08/10/18 06:02 Pappenheimer Bodies Not Reportable 08/10/18 06:02 Sickle Cells Not Reportable 08/10/18 06:02 Target Cells Not Reportable 08/10/18 06:02 Tear Drop Cells Not Reportable 08/10/18 06:02 Ovalocytes Not Reportable 08/10/18 06:02 Helmet Cells Not Reportable 08/10/18 06:02 [place] Bodies Not Reportable 08/10/18 06:02 [place] Rings Not Reportable 08/10/18 06:02 [place] Cells Not Reportable 08/10/18 06:02 Bite Cells Not Reportable 08/10/18 06:02 Crenated Cell Not Reportable 08/10/18 06:02 Elliptocytes Not Reportable 08/10/18 06:02 Acanthocytes (Spur) Not Reportable 08/10/18 06:02 Rouleaux Not Reportable 08/10/18 06:02 Hemoglobin C Crystals Not Reportable 08/10/18 06:02 Schistocytes Not Reportable 08/10/18 06:02 Malaria parasites Not Reportable 08/10/18 06:02 Elias Bodies Not Reportable 08/10/18 06:02 Hem Pathologist Commnt No 08/10/18 06:02 PT 11.3 Sec. (12.2-14.9) L 08/02/18 16:44 INR 0.78 (0.87-1.13) L 08/02/18 16:44 APTT 27.5 Sec. (24.2-36.6) 08/02/18 16:44 POC ABG pH 7.429 (7.35-7.45) 08/13/18 15:08 POC ABG pCO2 54.0 (35-45) H 08/13/18 15:08 POC ABG pO2 74 (80-105) L 08/13/18 15:08 POC ABG HCO3 35.7 08/13/18 15:08 POC ABG Total CO2 37 08/13/18 15:08 POC ABG O2 Sat 95 08/13/18 15:08 POC ABG Base Excess 11 08/13/18 15:08 FiO2 36 % 08/13/18 15:08 Sodium 133 mmol/L (137-145) L 08/10/18 06:02 Potassium 4.1 mmol/L (3.6-5.0) 08/10/18 06:02 Chloride 89.1 mmol/L (98-107) L 08/10/18 06:02 Carbon Dioxide 33 mmol/L (22-30) H 08/10/18 06:02 Anion Gap 15 mmol/L 08/10/18 06:02 BUN 34 mg/dL (9-20) H 08/10/18 06:02 Creatinine 1.0 mg/dL (0.8-1.5) 08/10/18 06:02 Estimated GFR > 60 ml/min 08/10/18 06:02 BUN/Creatinine Ratio 34 % 08/10/18 06:02 Glucose 323 mg/dL (75-100) H 08/10/18 06:02 POC Glucose 310 (70-105) H 08/14/18 06:55 Hemoglobin A1c 7.3 % (4-6) H 08/02/18 Unknown Calcium 8.7 mg/dL (8.4-10.2) 08/10/18 06:02 Magnesium 1.50 mg/dL (1.7-2.3) L 08/04/18 00:17 Total Bilirubin 0.40 mg/dL (0.1-1.2) 08/03/18 05:00 AST 22 units/L (5-40) 08/03/18 05:00 ALT 22 units/L (7-56) 08/03/18 05:00 Alkaline Phosphatase 87 units/L (35-129) 08/03/18 05:00 Troponin T < 0.010 ng/mL (0.00-0.029) 08/02/18 16:44 NT-Pro-B Natriuret Pep 4912 pg/mL (0-900) H 08/02/18 16:44 Total Protein 6.4 g/dL (6.3-8.2) 08/03/18 05:00 Albumin 3.9 g/dL (3.9-5) 08/03/18 05:00 Albumin/Globulin Ratio 1.6 % 08/03/18 05:00 Nutrition/Malnutrition Assess - Dietary Evaluation Nutrition/Malnutrition Findings: Nutrition Notes Start: 08/09/18 10:46 Freq: Status: Active Protocol: Document 08/09/18 10:46 LM (Rec: 08/09/18 11:08 LM [id number]) Co-Sign 08/09/18 10:46 OL Nutrition Notes Need for Assessment generated from: LOS Initial or Follow up Brief Note Subjective/Other Information Screen for LOS. Pt stated he has a good appetite now and prior to admission. Pt ate all of his breakfast this morning . Pt stated that any weight changes was due to fluid build up in legs and lower stomach. Pt said his fluid build up is decreasing. Pt's weight before fluid build up was 235 lb. Pt stated he takes metformin at home. Discussed diet for DM with pt. #1 Nutrition Diagnosis Food and nutrition-related knowledge deficit Etiology DM As Evidenced by Signs and Symptoms Pt requesting DM information and Hgb A1C 7.3 Nutrition Intervention Teaching Recipient Patient Learning Readiness Good Teaching Methods Discussion Handout Response to Teaching Verbalize understanding Education Handouts Provided CHO Counting for DM Barriers to Learning No Barriers RD phone number provided Yes Patient aware of follow up options Yes Revisit per MD consult or patient Sign Off request:
[2018-08-14] MEDS: LANTUS SUB-Q SCH (22:16)
[2018-08-15] MEDS: PERCOCET 5/325 PO PRN ×3 (00:18→14:22)
[2018-08-15] MEDS: LASIX IV SCH (05:40)
[2018-08-15] MEDS: SOLU-Medrol IV SCH (05:40)
[2018-08-15] MEDS: BROVANA NEBU IH SCH (08:58)
[2018-08-15] MEDS: PULMICORT IH SCH (08:58)
--- NOTE | 2018-08-15 09:30 | Progress Note ---
Assessment and Plan 57 y/o male with systolic heart failure and severe pulmonary hypertension, also tobacco abuse and possibly underlying COPD No new recs for today, same as below. No objection to discharge and I suggest he be discharged today with follow up in our office. 1. Pulm HTN- As stated previously, likely multifactorial. Patient has had improvement on current therapy. At discharge, please send out on Revatio TID (if he can afford it), Prednisone 60 daily and then bactrim DS for PCP prophylaxis and lasix 60 daily. Patient also will need a walk test and make sure that on the current oxygen level he can maintain sats >88%. He will need a nighttime pulse ox but this can be set up from the office. 2. ILD-patient needs connective tissue work up, most likely this is IPF. 3. Tobacco Abuse-Continue BID wellbutrin at discharge. 4. Of note, I did not recommend Prednisone therapy for life, there is a difference between indefinitely and permanently. Also, the patient does not have an outside umbrella tipper hand and would like to follow up with us. Will arrange follow up with Dr. Leal. No objection to discharge today. Subjective Date of service: 08/15/18 Principal diagnosis: COPD, ILD Interval history: No acute events. Patient ready to go home. Not sure why he was not discharged. Yesterday. Per patient had walk test but I cannot see the results. Objective Vital Signs - 12hr 08/14/18 08/15/18 08/15/18 23:22 03:36 04:00 Temperature 98.0 F 98.0 F Pulse Rate 129 H 97 H 85 Pulse Rate [ Anterior Bilateral Throughout] Pulse Rate [ Throughout] Respiratory 18 18 Rate Respiratory Rate [Anterior Bilateral Throughout] Respiratory Rate [ Throughout] Blood Pressure 113/74 99/82 O2 Sat by Pulse 90 96 Oximetry 08/15/18 08/15/18 08:13 08:59 Temperature 97.2 F L Pulse Rate 89 Pulse Rate [ 68 Anterior Bilateral Throughout] Pulse Rate [ 72 Throughout] Respiratory 16 Rate Respiratory 18 Rate [Anterior Bilateral Throughout] Respiratory 18 Rate [ Throughout] Blood Pressure 122/81 O2 Sat by Pulse 94 92 Oximetry Constitutional: no acute distress, alert Eyes: icteric, other (OS eyelid drop) ENT: oropharynx moist Neck: supple, no JVD Effort: normal Ascultation: Bilateral: clear, diminished breath sounds, wheezes (very faint, occasional), rales (rare) Percussion: Bilateral: not dull Tactile fremitus: Bilateral: normal Cardiovascular: regular rate and rhythm Gastrointestinal: normoactive bowel sounds, soft, non-tender Extremities: no edema, cyanosis Neurologic: normal mental status Psychiatric: mood appropriate CBC and BMP: 08/10/18 06:02 08/10/18 06:02 ABG, PT/INR, D-dimer: ABG POC ABG pH 7.429 (7.35-7.45) 08/13/18 15:08 POC ABG pCO2 54.0 (35-45) H 08/13/18 15:08 POC ABG pO2 74 (80-105) L 08/13/18 15:08 POC ABG HCO3 35.7 08/13/18 15:08 POC ABG Total CO2 37 08/13/18 15:08 POC ABG O2 Sat 95 08/13/18 15:08 PT/INR, D-dimer PT 11.3 Sec. (12.2-14.9) L 08/02/18 16:44 INR 0.78 (0.87-1.13) L 08/02/18 16:44 Abnormal lab findings: Abnormal Labs 08/02/18 08/02/18 08/02/18 16:25 16:25 16:44 RBC Hgb 15.3 H Hct 45.8 H MCV 95 H Lymph % (Auto) 6.7 L [place] % (Auto) 8.8 H Lymph # 0.5 L Seg Neutrophils % 82.5 H Seg Neuts % (Manual) Lymphocytes % (Manual) Lymphocytes # (Manual) PT 11.3 L INR 0.78 L POC ABG pCO2 POC ABG pO2 Sodium 134 L Potassium Chloride 97.8 L Carbon Dioxide BUN Creatinine Glucose 126 H POC Glucose Hemoglobin A1c Magnesium NT-Pro-B Natriuret Pep 08/02/18 08/02/18 08/03/18 16:44 Unknown 05:00 RBC Hgb Hct MCV 95 H Lymph % (Auto) 12.3 L [place] % (Auto) 10.9 H Lymph # 0.9 L Seg Neutrophils % 73.2 H Seg Neuts % (Manual) Lymphocytes % (Manual) Lymphocytes # (Manual) PT INR POC ABG pCO2 POC ABG pO2 Sodium Potassium Chloride Carbon Dioxide BUN Creatinine Glucose POC Glucose Hemoglobin A1c 7.3 H Magnesium NT-Pro-B Natriuret Pep 4912 H 08/03/18 08/03/18 08/04/18 05:00 21:46 00:17 RBC Hgb Hct MCV Lymph % (Auto) [place] % (Auto) Lymph # Seg Neutrophils % Seg Neuts % (Manual) Lymphocytes % (Manual) Lymphocytes # (Manual) PT INR POC ABG pCO2 POC ABG pO2 Sodium Potassium Chloride Carbon Dioxide BUN Creatinine 0.7 L Glucose POC Glucose 207 H Hemoglobin A1c Magnesium 1.50 L NT-Pro-B Natriuret Pep 08/04/18 08/04/18 08/04/18 05:18 05:18 06:32 RBC Hgb Hct MCV Lymph % (Auto) [place] % (Auto) Lymph # Seg Neutrophils % Seg Neuts % (Manual) 93.0 H Lymphocytes % (Manual) 1.0 L Lymphocytes # (Manual) 0.1 L PT INR POC ABG pCO2 POC ABG pO2 Sodium 134 L Potassium Chloride 91.9 L Carbon Dioxide BUN Creatinine 0.7 L Glucose 243 H POC Glucose 216 H Hemoglobin A1c Magnesium NT-Pro-B Natriuret Pep 08/04/18 08/04/18 08/04/18 06:48 12:51 21:23 RBC Hgb Hct MCV Lymph % (Auto) [place] % (Auto) Lymph # Seg Neutrophils % Seg Neuts % (Manual) Lymphocytes % (Manual) Lymphocytes # (Manual) PT INR POC ABG pCO2 POC ABG pO2 Sodium Potassium Chloride Carbon Dioxide BUN Creatinine Glucose POC Glucose 220 H 202 H 278 H Hemoglobin A1c Magnesium NT-Pro-B Natriuret Pep 08/05/18 08/05/18 08/05/18 06:33 10:40 15:20 RBC Hgb Hct MCV Lymph % (Auto) [place] % (Auto) Lymph # Seg Neutrophils % Seg Neuts % (Manual) Lymphocytes % (Manual) Lymphocytes # (Manual) PT INR POC ABG pCO2 POC ABG pO2 Sodium Potassium Chloride Carbon Dioxide BUN Creatinine Glucose POC Glucose 266 H 233 H 241 H Hemoglobin A1c Magnesium NT-Pro-B Natriuret Pep 08/06/18 08/06/18 08/06/18 00:01 05:49 11:14 RBC Hgb Hct MCV Lymph % (Auto) [place] % (Auto) Lymph # Seg Neutrophils % Seg Neuts % (Manual) Lymphocytes % (Manual) Lymphocytes # (Manual) PT INR POC ABG pCO2 POC ABG pO2 Sodium 132 L Potassium 5.5 H Chloride 90.1 L Carbon Dioxide 31 H BUN 27 H Creatinine Glucose 283 H POC Glucose 334 H 266 H Hemoglobin A1c Magnesium NT-Pro-B Natriuret Pep 08/06/18 08/06/18 08/07/18 16:49 21:22 05:35 RBC Hgb Hct MCV Lymph % (Auto) [place] % (Auto) Lymph # Seg Neutrophils % Seg Neuts % (Manual) Lymphocytes % (Manual) Lymphocytes # (Manual) PT INR POC ABG pCO2 POC ABG pO2 Sodium 136 L Potassium Chloride 92.2 L Carbon Dioxide 34 H BUN 38 H Creatinine Glucose 281 H POC Glucose 297 H 164 H Hemoglobin A1c Magnesium NT-Pro-B Natriuret Pep 08/07/18 08/07/18 08/07/18 05:57 11:44 16:53 RBC Hgb Hct MCV Lymph % (Auto) [place] % (Auto) Lymph # Seg Neutrophils % Seg Neuts % (Manual) Lymphocytes % (Manual) Lymphocytes # (Manual) PT INR POC ABG pCO2 POC ABG pO2 Sodium Potassium Chloride Carbon Dioxide BUN Creatinine Glucose POC Glucose 228 H 213 H 171 H Hemoglobin A1c Magnesium NT-Pro-B Natriuret Pep 08/07/18 08/08/18 08/08/18 21:53 06:11 12:02 RBC Hgb Hct MCV Lymph % (Auto) [place] % (Auto) Lymph # Seg Neutrophils % Seg Neuts % (Manual) Lymphocytes % (Manual) Lymphocytes # (Manual) PT INR POC ABG pCO2 POC ABG pO2 Sodium Potassium Chloride Carbon Dioxide BUN Creatinine Glucose POC Glucose 349 H 256 H 291 H Hemoglobin A1c Magnesium NT-Pro-B Natriuret Pep 08/08/18 08/08/18 08/09/18 16:50 20:40 05:22 RBC Hgb Hct MCV Lymph % (Auto) [place] % (Auto) Lymph # Seg Neutrophils % Seg Neuts % (Manual) Lymphocytes % (Manual) Lymphocytes # (Manual) PT INR POC ABG pCO2 POC ABG pO2 Sodium Potassium Chloride Carbon Dioxide BUN Creatinine Glucose POC Glucose 209 H 217 H 225 H Hemoglobin A1c Magnesium NT-Pro-B Natriuret Pep 08/09/18 08/09/18 08/09/18 11:45 17:26 21:52 RBC Hgb Hct MCV Lymph % (Auto) [place] % (Auto) Lymph # Seg Neutrophils % Seg Neuts % (Manual) Lymphocytes % (Manual) Lymphocytes # (Manual) PT INR POC ABG pCO2 POC ABG pO2 Sodium Potassium Chloride Carbon Dioxide BUN Creatinine Glucose POC Glucose 293 H 280 H 316 H Hemoglobin A1c Magnesium NT-Pro-B Natriuret Pep 08/10/18 08/10/18 08/10/18 06:02 06:02 06:11 RBC 5.11 H Hgb 15.9 H Hct 47.6 H MCV Lymph % (Auto) [place] % (Auto) Lymph # Seg Neutrophils % Seg Neuts % (Manual) 91.0 H Lymphocytes % (Manual) 2.0 L Lymphocytes # (Manual) 0.2 L PT INR POC ABG pCO2 POC ABG pO2 Sodium 133 L Potassium Chloride 89.1 L Carbon Dioxide 33 H BUN 34 H Creatinine Glucose 323 H POC Glucose 281 H Hemoglobin A1c Magnesium NT-Pro-B Natriuret Pep 08/10/18 08/10/18 08/10/18 13:02 17:12 21:24 RBC Hgb Hct MCV Lymph % (Auto) [place] % (Auto) Lymph # Seg Neutrophils % Seg Neuts % (Manual) Lymphocytes % (Manual) Lymphocytes # (Manual) PT INR POC ABG pCO2 POC ABG pO2 Sodium Potassium Chloride Carbon Dioxide BUN Creatinine Glucose POC Glucose 237 H 284 H 318 H Hemoglobin A1c Magnesium NT-Pro-B Natriuret Pep 08/11/18 08/11/18 08/11/18 06:09 12:09 16:30 RBC Hgb Hct MCV Lymph % (Auto) [place] % (Auto) Lymph # Seg Neutrophils % Seg Neuts % (Manual) Lymphocytes % (Manual) Lymphocytes # (Manual) PT INR POC ABG pCO2 POC ABG pO2 Sodium Potassium Chloride Carbon Dioxide BUN Creatinine Glucose POC Glucose 237 H 259 H 249 H Hemoglobin A1c Magnesium NT-Pro-B Natriuret Pep 08/11/18 08/12/18 08/12/18 21:16 06:46 11:36 RBC Hgb Hct MCV Lymph % (Auto) [place] % (Auto) Lymph # Seg Neutrophils % Seg Neuts % (Manual) Lymphocytes % (Manual) Lymphocytes # (Manual) PT INR POC ABG pCO2 POC ABG pO2 Sodium Potassium Chloride Carbon Dioxide BUN Creatinine Glucose POC Glucose 269 H 234 H 281 H Hemoglobin A1c Magnesium NT-Pro-B Natriuret Pep 08/12/18 08/12/18 08/13/18 15:54 21:07 06:29 RBC Hgb Hct MCV Lymph % (Auto) [place] % (Auto) Lymph # Seg Neutrophils % Seg Neuts % (Manual) Lymphocytes % (Manual) Lymphocytes # (Manual) PT INR POC ABG pCO2 POC ABG pO2 Sodium Potassium Chloride Carbon Dioxide BUN Creatinine Glucose POC Glucose 146 H 316 H 235 H Hemoglobin A1c Magnesium NT-Pro-B Natriuret Pep 08/13/18 08/13/18 08/13/18 11:04 15:08 15:15 RBC Hgb Hct MCV Lymph % (Auto) [place] % (Auto) Lymph # Seg Neutrophils % Seg Neuts % (Manual) Lymphocytes % (Manual) Lymphocytes # (Manual) PT INR POC ABG pCO2 54.0 H POC ABG pO2 74 L Sodium Potassium Chloride Carbon Dioxide BUN Creatinine Glucose POC Glucose 286 H 228 H Hemoglobin A1c Magnesium NT-Pro-B Natriuret Pep 08/13/18 08/14/18 08/14/18 22:15 06:55 12:31 RBC Hgb Hct MCV Lymph % (Auto) [place] % (Auto) Lymph # Seg Neutrophils % Seg Neuts % (Manual) Lymphocytes % (Manual) Lymphocytes # (Manual) PT INR POC ABG pCO2 POC ABG pO2 Sodium Potassium Chloride Carbon Dioxide BUN Creatinine Glucose POC Glucose 321 H 310 H 303 H Hemoglobin A1c Magnesium NT-Pro-B Natriuret Pep 08/14/18 08/14/18 08/15/18 16:04 21:31 06:34 RBC Hgb Hct MCV Lymph % (Auto) [place] % (Auto) Lymph # Seg Neutrophils % Seg Neuts % (Manual) Lymphocytes % (Manual) Lymphocytes # (Manual) PT INR POC ABG pCO2 POC ABG pO2 Sodium Potassium Chloride Carbon Dioxide BUN Creatinine Glucose POC Glucose 187 H 366 H 199 H Hemoglobin A1c Magnesium NT-Pro-B Natriuret Pep
[2018-08-15] MEDS: REVATIO PO SCH ×2 (09:43→13:54)
[2018-08-15] MEDS: LEVAQUIN PO SCH (09:43)
[2018-08-15] MEDS: XANAX PO PRN (09:43)
[2018-08-15] MEDS: PEPCID PO SCH (09:44)
[2018-08-15] MEDS: HEPARIN SUB-Q SCH (09:44)
[2018-08-15] MEDS: NEURONTIN PO SCH ×2 (09:44→13:54)
[2018-08-15] MEDS: HumaLOG SUB-Q SCH ×2 (09:44→12:19)
[2018-08-15] MEDS: SODIUM CHLORIDE FLUSH SYRINGE 10 ML IV SCH (09:45)
[2018-08-15] MEDS: GLUCOPHAGE PO SCH (09:45)
[2018-08-15 11:58] VITALS: BP 109/71
[2018-08-15] MEDS: DILAUDID IV PRN (13:54)
--- NOTE | 2018-08-15 14:56 | Discharge Summary ---
Providers - Providers Date of Admission: 08/02/18 18:02 Date of discharge: 08/15/18 Attending physician: JORDY CRUZ 08/03/18 16:35 Consult to Physician [CONS] Routine Comment: Consulting Provider: MANDO DAVIS Physician Instructions: Reason For Exam: cor-pulmonale 08/07/18 11:11 Occupational Therapy Evaluate and Treat [CONS] Urgent Comment: Reason For Exam: functional status, weakness with deconditioning Physical Therapy Evaluation and Treat [CONS] Routine Comment: needs placement Reason For Exam: gait eval, muscle weakness Primary care physician: ROUTE RIDER Hospitalization Condition: Fair Hospital course: Patient is 57 yo with hypertension, COPD diabetes presented with shortness of breath. he was diagnosed with Acute on chronic respiratory failure due to COPD exacerbation and pneumoia. He was started on solumedrol, Duoneb, antibiotics. Acute on chronic respiratory failure. Etiology multifactorial secondary to COPD, CHF, ILD, OHS/DUANE, severe pulmonary hypertension and cor pulmonale. ILD. COPD exacerbation. Continue bronchodilators and steroid treatment Cor pulmonale. Per pulmonary Severe pulmonary hypertension. . RLL pneumonia. 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 Hyperlipidemia; continue statin Diabetes mellitus type II, uncontrolled total time spent on discharge, 32 mins Disposition: [id number] HOME UNDER HOME [facility] - Discharge Diagnoses (1) Acute and chronic respiratory failure ([id number]) Status: Acute Qualifiers: Respiratory failure complication: hypoxia Qualified Code(s): J96.21 - Acute and chronic respiratory failure with hypoxia (2) Acute on chronic systolic (congestive) heart failure Status: Acute (3) CHF (congestive heart failure) Status: Acute Qualifiers: Heart failure type: unspecified Heart failure chronicity: acute on chronic Qualified Code(s): I50.9 - Heart failure, unspecified (4) COPD exacerbation Status: Acute (5) Chest pain Status: Acute Qualifiers: Chest pain type: unspecified Qualified Code(s): R07.9 - Chest pain, unspecified (6) Cor pulmonale Status: Acute (7) ILD (interstitial lung disease) Status: Acute (8) Pneumonia involving right lung Status: Acute (9) COPD (chronic obstructive pulmonary disease) Status: Chronic Qualifiers: COPD type: unspecified COPD Qualified Code(s): J44.9 - Chronic obstructive pulmonary disease, unspecified (10) Diabetes Status: Chronic (11) Hypertension Status: Chronic Qualifiers: Hypertension type: essential hypertension Qualified Code(s): I10 - Essential (primary) hypertension (12) Type 2 diabetes mellitus Status: Chronic Qualifiers: Diabetes mellitus watermaster insulin use: without watermaster use Core Measure Documentation - Palliative Care Palliative Care/ Comfort Measures: Not Applicable - Core Measures Any of the following diagnoses?: heart failure - Heart Failure Discharge Requirements FLORENCIO/ARB for LVSD if EF <40%: Not Applicable Beta susanne at discharge: No Reason for no beta susanne on DC: COPD Exam - Constitutional Vitals: Temp Pulse Resp BP Pulse Ox 97.6 F 70 16 109/71 95 08/15/18 11:56 08/15/18 11:56 08/15/18 11:56 08/15/18 11:56 08/15/18 11:56 Plan Activity: advance as tolerated Diet: low fat, low cholesterol, low salt, diabetic Additional Instructions: 1.Follow up with PCP or [facility] in 1 week. 2.Follow up with Dr. Leal, Pulmonology in 1 week. 3.Continue home Oxygen continuously at 3l/min Follow up with: PRIMARY CARE, [Primary Care Provider] - 3-5 Days Prescriptions: Famotidine [Pepcid] 20 mg PO BID #60 tablet HYDROcodone/ACETAMINOPHEN [Hydrocodone-Acetamin 5-325 mg] 1 each PO Q6H #10 tablet Sildenafil [Revatio] 20 mg PO TID 30 Days tablet Sulfamethoxazole/Trimethoprim [Bactrim DS TAB] 1 each PO DAILY 30 Days tablet
== END 2018-08-15 16:09 | disposition home health service (06) | DRG 291 ==
LOC: ED 15:56 → 4A 18:02
PROVIDERS: ADMIT Internal Medicine; ATTEND Internal Medicine
PROC: 4A033R1 Measurement of Arterial Saturation, Peripheral, Percutaneous Approach (ICD-10-PCS; principal; 2018-08-13)
DX: I11.0 Hypertensive heart disease with heart failure (principal); J96.21 Acute and chronic respiratory failure with hypoxia; J18.1 Lobar pneumonia, unspecified organism; I50.43 Acute on chronic combined systolic (congestive) and diastolic (congestive) heart failure; J44.1 Chronic obstructive pulmonary disease with (acute) exacerbation; J44.0 Chronic obstructive pulmonary disease with (acute) lower respiratory infection; M19.90 Unspecified osteoarthritis, unspecified site; F17.210 Nicotine dependence, cigarettes, uncomplicated; I27.20 Pulmonary hypertension, unspecified; E11.51 Type 2 diabetes mellitus with diabetic peripheral angiopathy without gangrene; I27.81 Cor pulmonale (chronic); E66.01 Morbid (severe) obesity due to excess calories; E78.5 Hyperlipidemia, unspecified; I42.0 Dilated cardiomyopathy; G47.33 Obstructive sleep apnea (adult) (pediatric); F41.1 Generalized anxiety disorder; E11.42 Type 2 diabetes mellitus with diabetic polyneuropathy; Z86.718 Personal history of other venous thrombosis and embolism; Z68.38 Body mass index [BMI] 38.0-38.9, adult; Z89.432 Acquired absence of left foot; Z79.01 Long term (current) use of anticoagulants; Z88.8 Allergy status to other drugs, medicaments and biological substances; Z99.81 Dependence on supplemental oxygen; Z79.82 Long term (current) use of aspirin; Z79.84 Long term (current) use of oral hypoglycemic drugs
CPT/HCPCS: 36415; 36600; 71045; 71250; 78582; 80048; 80053; 82803; 82962; 83036; 83735; 83880; 84484; 85007; 85025; 85610; 85730; 93005; 93010; 93306; 94640; 94760; 96374; 96375; G0378; A9270-GY; A9540; A9558; J1170; J1644; J1815; J1940; J1956; J2270; J2920; J2930; J3475

== ENCOUNTER 2018-08-26 15:45 | Inpatient (IN) | payer MEDICAID ==
[2018-08-26] MEDS ORDERED: ASPIRIN PO ONE (16:28)
[2018-08-26 16:30] LABS: Hematocrit 49.7 % (35.5-45.6); Hemoglobin 16.7 gm/dl (11.8-15.2); Mean Corpuscular HGB Conc 34 % (32-34); Mean Corpuscular Volume 93 fl (84-94); Platelet Count 123 K/mm3 (140-440); Red Blood Count 5.36 M/mm3 (3.65-5.03); Red Cell Distribution Width 14.5 % (13.2-15.2)
[2018-08-26] MEDS ORDERED: DUONEB *Not for PRN Use IH ONE (16:31)
[2018-08-26] MEDS ORDERED: SOLU-Medrol IV ONE (16:33)
--- NOTE | 2018-08-26 16:33 | Emergency Department Report ---
ED Shortness of Breath HPI - General Chief Complaint: Dyspnea/Respdistress Stated Complaint: ALEXYS Time Seen by Provider: 08/26/18 16:25 Source: patient, family Mode of arrival: Ambulatory Limitations: No Limitations - History of Present Illness Initial Comments: He is a 57-year-old male presents to a complaints of chest pain and shortness of breath and difficulty breathing 3 days. Patient states symptoms are worsening. Patient states chest pain is 10 out of 10 and is better with rest and worse with exertion. Patient states the chest pain is in the center of his chest nonradiating. Patient denies fever and chills. Patient states his shortness b reath is better with oxygen worse with exertion. Patient states she is a history of CHF and COPD. MD Complaint: shortness of breath, cough, chest pain -: Sudden Severity: severe Pain Scale: 10 Quality: throbbing, stabbing Consistency: constant Improves With: oxygen, rest, bronchodilators, upright position Worsens With: lying flat, exertion, movement Known History Of: COPD, congestive heart failure Associated Symptoms: chest pain, cough, orhopnia Treatments Prior to Arrival: oxygen, bronchodilator - Related Data Home Oxygen Therapy: Yes Home Oxygen Amount: 2 Liters Home Medications Medication Instructions Recorded Confirmed Last Taken Gabapentin [Neurontin] 800 mg PO TID 08/02/18 08/26/18 Unknown Previous Rx's Medication Instructions Recorded Last Taken Type ALPRAZolam [Xanax TAB] 0.5 mg PO TID PRN #10 tablet 11/17/17 Unknown Rx AtorvaSTATin [Lipitor] 40 mg PO QHS #30 11/17/17 11/14/17 Rx metFORMIN [Glucophage] 500 mg PO BID tablet 11/17/17 Unknown Rx Famotidine [Pepcid] 20 mg PO BID #60 tablet 08/15/18 Unknown Rx Furosemide [Lasix] 60 mg PO QDAY 30 Days tablet 08/15/18 Unknown Rx HYDROcodone/ACETAMINOPHEN 1 each PO Q6H #10 tablet 08/15/18 Unknown Rx [Hydrocodone-Acetamin 5-325 mg] Insulin Glargine [Lantus VIAL] 15 units SUB-Q QHS #1 vial 08/15/18 Unknown Rx Sildenafil [Revatio] 20 mg PO TID 30 Days tablet 08/15/18 Unknown Rx Sulfamethoxazole/Trimethoprim 1 each PO DAILY 30 Days tablet 08/15/18 Unknown Rx [Bactrim DS TAB] predniSONE [Deltasone] 60 mg PO QDAY 30 Days tab 08/15/18 Unknown Rx Allergies Allergy/AdvReac Type Severity Reaction Status Date / Time ketorolac tromethamine Allergy Vomiting Verified 01/31/17 05:38 [From Toradol] tramadol Allergy Vomiting Verified 01/31/17 05:38 ED Review of Systems ROS: Stated complaint: ALEXYS Other details as noted in HPI ED Past Medical Hx - Past Medical History Hx Hypertension: Yes Hx Congestive Heart Failure: No Hx Diabetes: Yes Hx Deep Vein Thrombosis: Yes (LEFT LEG) Hx Arthritis: Yes Hx Kidney Stones: Yes Hx Asthma: No Hx COPD: Yes Additional medical history: Cholesterol - Surgical History Hx Cholecystectomy: Yes Additional Surgical History: L. leg bypass, L. leg stents, Hernia. 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 - Social History Smoking Status: Former Smoker Substance Use Type: None - Medications Home Medications: Home Medications Medication Instructions Recorded Confirmed Last Taken Type ALPRAZolam [Xanax TAB] 0.5 mg PO TID PRN #10 tablet 11/17/17 08/26/18 Unknown Rx AtorvaSTATin [Lipitor] 40 mg PO QHS #30 11/17/17 08/26/18 11/14/17 Rx metFORMIN [Glucophage] 500 mg PO BID tablet 11/17/17 08/26/18 Unknown Rx Gabapentin [Neurontin] 800 mg PO TID 08/02/18 08/26/18 Unknown History Famotidine [Pepcid] 20 mg PO BID #60 tablet 08/15/18 08/26/18 Unknown Rx Furosemide [Lasix] 60 mg PO QDAY 30 Days tablet 08/15/18 08/26/18 Unknown Rx HYDROcodone/ACETAMINOPHEN 1 each PO Q6H #10 tablet 08/15/18 08/26/18 Unknown Rx [Hydrocodone-Acetamin 5-325 mg] Insulin Glargine [Lantus VIAL] 15 units SUB-Q QHS #1 vial 08/15/18 08/26/18 Unkn own Rx Sildenafil [Revatio] 20 mg PO TID 30 Days tablet 08/15/18 08/26/18 Unknown Rx Sulfamethoxazole/Trimethoprim 1 each PO DAILY 30 Days tablet 08/15/18 08/26/18 Unknown Rx [Bactrim DS TAB] predniSONE [Deltasone] 60 mg PO QDAY 30 Days tab 08/15/18 08/26/18 Unknown Rx ED Physical Exam - General Limitations: No Limitations General appearance: alert, in distress - Head Head exam: Present: atraumatic, normocephalic - Eye Eye exam: Present: normal appearance - ENT ENT exam: Present: mucous membranes dry - Neck Neck exam: Present: normal inspection - Respiratory Respiratory exam: Present: normal lung sounds bilaterally, respiratory distress, wheezes, rales, rhonchi - Cardiovascular Cardiovascular Exam: Present: regular rate, normal rhythm. Absent: systolic murmur, diastolic murmur, rubs, gallop - GI/Abdominal GI/Abdominal exam: Present: soft, normal bowel sounds - Rectal Rectal exam: Present: deferred - Extremities Exam Extremities exam: Present: normal inspection - Back Exam Back exam: Present: normal inspection - Neurological Exam Neurological exam: Present: alert, oriented X3 - Psychiatric Psychiatric exam: Present: normal affect, normal mood - Skin Skin exam: Present: warm, dry, intact, normal color. Absent: rash ED Course Vital Signs 08/26/18 08/26/18 08/26/18 16:02 16:05 16:50 Temperature 98 F Pulse Rate 120 H Pulse Rate [ 135 H Anterior Bilateral Throughout] Respiratory 20 Rate Respiratory 20 Rate [Anterior Bilateral Throughout] Blood Pressure 119/78 O2 Sat by Pulse 95 95 Oximetry 08/26/18 08/26/18 08/26/18 16:59 17:00 17:01 Temperature Pulse Rate 122 H 128 H Pulse Rate [ 109 H Anterior Bilateral Throughout] Respiratory 12 13 Rate Respiratory 16 Rate [Anterior Bilateral Throughout] Blood Pressure O2 Sat by Pulse 94 94 Oximetry 08/26/18 08/26/18 08/26/18 17:16 17:18 17:30 Temperature Pulse Rate 109 H 112 H 101 H Pulse Rate [ Anterior Bilateral Throughout] Respiratory 14 18 20 Rate Respiratory Rate [Anterior Bilateral Throughout] Blood Pressure 127/73 127/73 129/76 O2 Sat by Pulse 99 97 96 Oximetry 08/26/18 08/26/18 08/26/18 17:45 18:00 18:15 Temperature Pulse Rate 95 H 108 H 112 H Pulse Rate [ Anterior Bilateral Throughout] Respiratory 16 22 19 Rate Respiratory Rate [Anterior Bilateral Throughout] Blood Pressure 121/70 113/66 109/69 O2 Sat by Pulse 96 96 98 Oximetry 08/26/18 08/26/18 08/26/18 18:30 18:46 19:00 Temperature Pulse Rate 103 H 106 H 117 H Pulse Rate [ Anterior Bilateral Throughout] Respiratory 20 22 17 Rate Respiratory Rate [Anterior Bilateral Throughout] Blood Pressure 110/73 145/91 145/91 O2 Sat by Pulse 97 95 95 Oximetry 08/26/18 08/26/18 08/26/18 19:16 19:30 19:45 Temperature Pulse Rate 135 H 133 H 120 H Pulse Rate [ Anterior Bilateral Throughout] Respiratory 14 19 18 Rate Respiratory Rate [Anterior Bilateral Throughout] Blood Pressure 125/91 122/85 125/84 O2 Sat by Pulse 96 99 93 Oximetry 08/26/18 08/26/18 08/26/18 20:00 20:14 20:20 Temperature Pulse Rate 109 H 140 H 112 H Pulse Rate [ Anterior Bilateral Throughout] Respiratory 18 20 18 Rate Respiratory Rate [Anterior Bilateral Throughout] Blood Pressure 122/75 122/75 105/69 O2 Sat by Pulse 96 92 98 Oximetry - Reevaluation(s) Reevaluation #1: Patient was placed on BiPAP. Patient will also be given mag, Solu-Medrol and DuoNeb. ABG reviewed 08/26/18 17:01 She is doing better on BiPAP. Patient's respiratory rate has decreased. Patient's heart rate is improving. Patient states he feels more comfortable. Patient's lung sounds have improved. Wheezing has resolved. Patient still having rales and crackles throughout. lasix IV ordered 08/26/18 17:35 Discussed all results with patient. patient to be admitted to hospital service. Patient agrees plan of care. 08/26/18 18:49 ED Medical Decision Making - Lab Data Result diagrams: 08/26/18 16:18 08/26/18 16:18 - EKG Data EKG shows normal: QRS complexes, ST-T waves Rate: tachycardia - EKG Data Interpretation: other (atrial flutter with fasicular block. axis deviation. ) - Radiology Data Radiology results: report reviewed, image reviewed interpreted by me: rock cxr. - Medical Decision Making Patient is a 57-year-old male presents emergency room with complaints of shortness of breath, chest pain. Patient found to have a COPD and CHF exacerbation. Patient admitted to the hospitalist service. Patient's labs unremarkable except for hyperkalemia and elevated BNP. D-dimer negative. - Differential Diagnosis COPD. CHF. ssob. ACS. Chest pain. Critical Care Time: Yes Critical care attestation.: If time is entered above; I have spent that time in minutes in the direct care of this critically ill patient, excluding procedure time. Critical Care Time: 45 minutes ED Disposition Clinical Impression: Hypoxia, COPD exacerbation, SOB (shortness of breath), Hyperkalemia CHF (congestive heart failure) Qualifiers: Heart failure type: unspecified Heart failure chronicity: acute on chronic Qualified Code(s): I50.9 - Heart failure, unspecified Acute exacerbation of CHF (congestive heart failure) Qualifiers: Heart failure type: diastolic Qualified Code(s): I50.9 - Heart failure, unspecified COPD (chronic obstructive pulmonary disease) Qualifiers: COPD type: unspecified COPD Qualified Code(s): J44.9 - Chronic obstructive pulmonary disease, unspecified Chest pain Qualifiers: Chest pain type: unspecified Qualified Code(s): R07.9 - Chest pain, unspecified Disposition: -09 OP ADMIT IP TO THIS HOSP Is pt being admited?: Yes Does the pt Need Aspirin: No Condition: Critical Time of Disposition: 18:49
[2018-08-26 16:42] LABS: BUN/Creatinine Ratio 22; Blood Urea Nitrogen 22 mg/dL (9-20); Calcium 8.9 mg/dL (8.4-10.2); Hemolysis Index 20
[2018-08-26] MEDS ORDERED: MORPHINE IV ONE ×2 (16:43→19:25)
[2018-08-26] MEDS ORDERED: MORPHINE ONE ×2 (16:49→19:24)
[2018-08-26] MEDS ORDERED: MAGNESIUM SULFATE 1 GM in NACL 0.9% 50 ML IV ONE (17:00)
--- NOTE | 2018-08-26 17:23 | XRay Report ---
FINAL REPORT PROCEDURE: XR CHEST 1V AP TECHNIQUE: Chest radiograph anteroposterior view. CPT 64558 HISTORY: Shortness of breath COMPARISON: 08/02/2018 FINDINGS: Heart: Normal. Mediastinum/Vessels: Normal. Lungs/Pleural space: No infiltrate, effusion, or pneumothorax. Bony thorax: No acute osseous abnormality. Life support devices: None. IMPRESSION: No radiographic evidence of acute cardiopulmonary abnormality.
[2018-08-26 17:31] LABS: Albumin 3.8 g/dL (3.9-5); Bilirubin,Direct 0.3 mg/dL (0-0.2)
[2018-08-26] MEDS: MAXIPIME/NS 2 GM/100 ML 2 GM/100 ML BAG IV ONE ×2 (17:32→18:35)
[2018-08-26] MEDS ORDERED: LASIX IV ONE (17:35)
[2018-08-26 17:51] LABS: Basophils % (Manual) 0 % (0.0-1.8); Total Cells Counted 100
[2018-08-26 17:52] LABS: Platelet Estimate Consistent w Auto; RBC Morphology Normal
--- NOTE | 2018-08-26 19:08 | History and Physical Report ---
History of Present Illness Chief complaint: I cant breathe History of present illness: 57 YO Male with COPD, Diastolic CHF, Chronic Respiratory Failure on 2L Home Oxygen via NC, HTN, DM, OA, HLD presents to ED for evaluation. Pt states that he has experienced shortness of breath over the past 3 days, with increased n onproductive cough with worsening symptoms over the same time frame with frequent nebulizer therapy without relief of symptoms. Pt acknowledges chest pain with coughing. Pt seen and evaluated in ED and found to have Acute Respiratory Failure, CHF Decompensation, as well as COPD exaccerbation. Pt ini tiated on NIPPV in ED with improvement in symptoms. Pt admitted to IMCU. Pt denies fever, chills, palpitations, NVD, Trauma, Hemoptysis, or recent ill contacts. Past History Past Medical History: COPD, diabetes, DVT, heart failure, hypertension Past Surgical History: cholecystectomy, Other ( L. leg bypass, L. leg stents, Hernia. 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 denies: smoking, alcohol abuse, prescription drug abuse Family history: diabetes, hypertension Medications and Allergies Allergies Allergy/AdvReac Type Severity Reaction Status Date / Time ketorolac tromethamine Allergy Vomiting Verified 01/31/17 05:38 [From Toradol] tramadol Allergy Vomiting Verified 01/31/17 05:38 Home Medications Medication Instructions Recorded Confirmed Last Taken Type ALPRAZolam [Xanax TAB] 0.5 mg PO TID PRN #10 tablet 11/17/17 08/26/18 Unknown Rx AtorvaSTATin [Lipitor] 40 mg PO QHS #30 11/17/17 08/26/18 11/14/17 Rx metFORMIN [Glucophage] 500 mg PO BID tablet 11/17/17 08/26/18 Unknown Rx Gabapentin [Neurontin] 800 mg PO TID 08/02/18 08/26/18 Unknown History Famotidine [Pepcid] 20 mg PO BID #60 tablet 08/15/18 08/26/18 Unknown Rx Furosemide [Lasix] 60 mg PO QDAY 30 Days tablet 08/15/18 08/26/18 Unknown Rx HYDROcodone/ACETAMINOPHEN 1 each PO Q6H #10 tablet 08/15/18 08/26/18 Unknown Rx [Hydrocodone-Acetamin 5-325 mg] Insulin Glargine [Lantus VIAL] 15 units SUB-Q QHS #1 vial 08/15/18 08/26/18 Unknown Rx Sildenafil [Revatio] 20 mg PO TID 30 Days tablet 08/15/18 08/26/18 Unknown Rx Sulfamethoxazole/Trimethoprim 1 each PO DAILY 30 Days tablet 08/15/18 08/26/18 Unknown Rx [Bactrim DS TAB] predniSONE [Deltasone] 60 mg PO QDAY 30 Days tab 08/15/18 08/26/18 Unknown Rx Review of Systems Constitutional: no weight loss, no weight gain, no fever, no chills Ears, nose, mouth and throat: no ear pain, no ear discharge, no tinnitis, no decreased hearing, no nose pain, no nasal congestion Cardiovascular: shortness of breath, no chest pain, no orthopnea, no palpitations Respiratory: cough, cough with sputum, excessive sputum, shortness of breath Gastrointestinal: no abdominal pain, no nausea, no vomiting, no diarrhea Genitourinary Male: no hematuria, no flank pain, no discharge, no urinary frequency, no urinary hesitancy, no genital pain Rectal: no pain, no incontinence, no bleeding Musculoskeletal: no neck stiffness, no neck pain, no shooting arm pain, no arm numbness/tingling, no low back pain Integumentary: no rash, no pruritis, no redness, no sores, no wounds Neurological: no paralysis, no weakness, no parathesias, no numbness, no tingling Psychiatric: no anxiety, no memory loss, no change in sleep habits, no sleep dis turbances, no insomnia, no hypersomnia Endocrine: no cold intolerance, no heat intolerance, no polyphagia, no excessive thirst, no polydipsia, no polyuria Hematologic/Lymphatic: no easy bruising, no easy bleeding, no lymphadenopathy, no lymphedema Allergic/Immunologic: no urticaria, no allergic rhinitis, no wheezing, no per sistent infections, no anaphylaxis Exam - Constitutional Vitals: Temp Pulse Resp BP Pulse Ox 98 F 101 H 20 129/76 96 08/26/18 16:02 08/26/18 17:30 08/26/18 17:30 08/26/18 17:30 08/26/18 17:30 General appearance: Present: mild distress, obese - EENT Eyes: Present: PERRL ENT: hearing intact, clear oral mucosa - Neck Neck: Present: supple, normal ROM - Respiratory Respiratory effort: labored Respiratory: bilateral: diminished, rhonchi - Cardiovascular Heart Sounds: Present: S1 & S2. Absent: rub, click - Extremities Extremity abnormal: edema Peripheral Pulses: within normal limits - Abdominal General gastrointestinal: Present: soft, non-tender, non-distended, normal bowel sounds Male genitourinary: Present: normal - Integumentary Integumentary: Present: clear, warm, dry - Musculoskeletal Musculoskeletal: gait normal, strength equal bilaterally - Psychiatric Psychiatric: appropriate mood/affect, intact judgment & insight - Neurologic Neurologic: CNII-XII intact, moves all extremities Results - Labs CBC & Chem 7: 08/26/18 16:18 08/26/18 16:18 Labs: Abnormal lab results 08/26/18 08/26/18 08/26/18 Range/Units 16:18 16:18 16:54 RBC 5.36 H (3.65-5.03) M/mm3 Hgb 16.7 H (11.8-15.2) gm/dl Hct 49.7 H (35.5-45.6) % Plt Count 123 L (140-440) K/mm3 Seg Neuts % (Manual) 90.0 H (40.0-70.0) % Lymphocytes % (Manual) 0 L (13.4-35.0) % Seg Neutrophils # Man 8.8 H (1.8-7.7) K/mm3 Lymphocytes # (Manual) 0.0 L (1.2-5.4) K/mm3 POC ABG pH (7.35-7.45) POC ABG pCO2 (35-45) Sodium 136 L (137-145) mmol/L Potassium 5.2 H (3.6-5.0) mmol/L Chloride 97.8 L (98-107) mmol/L BUN 22 H (9-20) mg/dL Glucose 412 H (75-100) mg/dL Direct Bilirubin 0.3 H (0-0.2) mg/dL NT-Pro-B Natriuret Pep 5240 H (0-900) pg/mL Total Protein 6.2 L (6.3-8.2) g/dL Albumin 3.8 L (3.9-5) g/dL 08/26/18 Range/Units 16:56 RBC (3.65-5.03) M/mm3 Hgb (11.8-15.2) gm/dl Hct (35.5-45.6) % Plt Count (140-440) K/mm3 Seg Neuts % (Manual) (40.0-70.0) % Lymphocytes % (Manual) (13.4-35.0) % Seg Neutrophils # Man (1.8-7.7) K/mm3 Lymphocytes # (Manual) (1.2-5.4) K/mm3 POC ABG pH 7.338 L (7.35-7.45) POC ABG pCO2 47.7 H (35-45) Sodium (137-145) mmol/L Potassium (3.6-5.0) mmol/L Chloride (98-107) mmol/L BUN (9-20) mg/dL Glucose (75-100) mg/dL Direct Bilirubin (0-0.2) mg/dL NT-Pro-B Natriuret Pep (0-900) pg/mL Total Protein (6.3-8.2) g/dL Albumin (3.9-5) g/dL Assessment and Plan - Patient Problems (1) Acute and chronic respiratory failure ([id number]) Current Visit: No Status: Acute Qualifiers: Respiratory failure complication: hypoxia Qualified Code(s): J96.21 - Acute and chronic respiratory failure with hypoxia Plan to address problem: Admit to IMCU, NIPPV, supplemental oxygen, ABG, chest x ray, pulse oximetry, nebulizer therapy. (2) Acute exacerbation of CHF (congestive heart failure) Current Visit: Yes Status: Acute Qualifiers: Heart failure type: diastolic Qualified Code(s): I50.9 - Heart failure, unspecified Plan to address problem: Admit to IMCU, Strict I/O, Daily weight, Diuresis, Monitor BP q shift, chest x ray, bnp, supplemental oxygen, pulse oximetry (3) COPD exacerbation Current Visit: Yes Status: Acute Plan to address problem: Iv steroid therapy, supplemental oxygen, empiric antibiotic therapy, NIPPV, (4) Diabetes Current Visit: No Status: Chronic Plan to address problem: ADA diet, insulin, accu check (5) Hypertension Current Visit: No Status: Chronic Qualifiers: Hypertension type: essential hypertension Qualified Code(s): I10 - Essential (primary) hypertension Plan to address problem: Monitor bp q shift, continue medical management (6) DVT prophylaxis Current Visit: No Status: Acute Plan to address problem: SCD to BLE while in bed.
[2018-08-26] MEDS ORDERED: SODIUM CHLORIDE FLUSH SYRINGE 10 ML IV PRN (19:59)
[2018-08-26] MEDS ORDERED: D50W (25GM) Syringe IV PRN (20:02)
[2018-08-26] MEDS ORDERED: NORCO 5/325 PO SCH (21:00)
[2018-08-26] MEDS: HumaLOG SUB-Q SCH (23:11)
[2018-08-26] MEDS: LANTUS SUB-Q SCH (23:12)
[2018-08-26] MEDS: PEPCID PO SCH (23:13)
[2018-08-26] MEDS: SODIUM CHLORIDE FLUSH SYRINGE 10 ML IV SCH (23:14)
[2018-08-26] MEDS: NORCO 5/325 PO PRN (23:14)
[2018-08-27 04:09] LABS: BUN/Creatinine Ratio 34; Blood Urea Nitrogen 24 mg/dL (9-20); Calcium 8.9 mg/dL (8.4-10.2); Hemolysis Index 10
[2018-08-27] MEDS: NORCO 5/325 PO PRN ×3 (05:31→19:53)
[2018-08-27] MEDS: LASIX IV SCH ×2 (05:32→18:22)
[2018-08-27] MEDS: HumaLOG SUB-Q SCH ×4 (08:37→21:39)
[2018-08-27] MEDS: REVATIO PO SCH ×2 (08:37→14:00)
[2018-08-27] MEDS: NEURONTIN PO SCH ×3 (08:37→19:54)
[2018-08-27] MEDS: PEPCID PO SCH ×2 (09:53→21:41)
[2018-08-27] MEDS: SODIUM CHLORIDE FLUSH SYRINGE 10 ML IV SCH ×2 (09:53→21:42)
[2018-08-27] MEDS: XANAX PO PRN (10:40)
[2018-08-27] MEDS: DUONEB *Not for PRN Use IH SCH ×2 (12:01→22:30)
--- NOTE | 2018-08-27 12:04 | Progress Note ---
Assessment and Plan Assessment and plan: Acute on chronic hypoxemia respiratory failure. Continue BiPAP as clinically indicated. Follow-up serial chest x-ray. Etiology multifactorial secondary to COPD, CHF, ILD, OHS/DUANE, severe pulmonary hypertension and cor pulmonale. Acute on chronic systolic heart failure. Echocardiogram from 08/02/2018 revealed EF of 40-45% with global left ventricular systolic function mildly decreased. Patient had evidence of severe pulmonary hypertension. Cardiology consulted. ILD. Continue Revatio. Pulmonary consulted. COPD exacerbation. Continue bronchodilators and steroid treatment. Empiric antibody started in ER. Cor pulmonale. Per pulmonary Severe pulmonary hypertension. Ventilation perfusion scan on last admission consistent with COPD, no evidence of chronic thrombo-embolic pulmonary hype rtension. Morbid obesity Tobacco dependence [employer] on smoking cessation Hyperlipidemia; continue statin Diabetes mellitus type II, uncontrolled Continue ssi and lantus qhs DVT prophylaxis History Interval history: No new issues overnight. Hospitalist Physical - Constitutional Vitals: Temp Pulse Resp BP Pulse Ox 98.4 F 120 H 15 103/64 95 08/27/18 11:52 08/27/18 10:00 08/27/18 10:00 08/27/18 10:00 08/27/18 10:00 General appearance: Present: no acute distress, obese - EENT Eyes: Present: PERRL, EOM intact ENT: hearing intact, clear oral mucosa, dentition normal - Neck Neck: Present: supple, normal ROM - Respiratory Respiratory effort: normal Respiratory: bilateral: CTA - Cardiovascular Rhythm: regular Heart Sounds: Present: S1 & S2. Absent: gallop, rub - Extremities Extremities: no ischemia, No edema, Full ROM - Abdominal General gastrointestinal: soft, non-tender, non-distended, normal bowel sounds - Integumentary Integumentary: Present: clear, warm, dry - Neurologic Neurologic: CNII-XII intact, moves all extremities Results - Labs CBC & Chem 7: 08/26/18 16:18 08/27/18 03:31 Labs: Laboratory Last Values WBC 9.8 K/mm3 (4.5-11.0) 08/26/18 16:18 RBC 5.36 M/mm3 (3.65-5.03) H 08/26/18 16:18 Hgb 16.7 gm/dl (11.8-15.2) H 08/26/18 16:18 Hct 49.7 % (35.5-45.6) H 08/26/18 16:18 MCV 93 fl (84-94) 08/26/18 16:18 MCH 31 pg (28-32) 08/26/18 16:18 MCHC 34 % (32-34) 08/26/18 16:18 RDW 14.5 % (13.2-15.2) 08/26/18 16:18 Plt Count 123 K/mm3 (140-440) L 08/26/18 16:18 Add Manual Diff Complete 08/26/18 16:18 Total Counted 100 08/26/18 16:18 Seg Neutrophils % Va Underwriter 08/26/18 16:18 Seg Neuts % (Manual) 90.0 % (40.0-70.0) H 08/26/18 16:18 Band Neutrophils % 0 % 08/26/18 16:18 Lymphocytes % (Manual) 0 % (13.4-35.0) L 08/26/18 16:18 Reactive Lymphs % (Man) 0 % 08/26/18 16:18 Monocytes % (Manual) 6.0 % (0.0-7.3) 08/26/18 16:18 Eosinophils % (Manual) 4.0 % (0.0-4.3) 08/26/18 16:18 Basophils % (Manual) 0 % (0.0-1.8) 08/26/18 16:18 Metamyelocytes % 0 % 08/26/18 16:18 Myelocytes % 0 % 08/26/18 16:18 Promyelocytes % 0 % 08/26/18 16:18 Blast Cells % 0 % 08/26/18 16:18 Nucleated RBC % Not Reportable 08/26/18 16:18 Seg Neutrophils # Man 8.8 K/mm3 (1.8-7.7) H 08/26/18 16:18 Band Neutrophils # 0.0 K/mm3 08/26/18 16:18 Lymphocytes # (Manual) 0.0 K/mm3 (1.2-5.4) L 08/26/18 16:18 Abs React Lymphs (Man) 0.0 K/mm3 08/26/18 16:18 Monocytes # (Manual) 0.6 K/mm3 (0.0-0.8) 08/26/18 16:18 Eosinophils # (Manual) 0.4 K/mm3 (0.0-0.4) 08/26/18 16:18 Basophils # (Manual) 0.0 K/mm3 (0.0-0.1) 08/26/18 16:18 Metamyelocytes # 0.0 K/mm3 08/26/18 16:18 Myelocytes # 0.0 K/mm3 08/26/18 16:18 Promyelocytes # 0.0 K/mm3 08/26/18 16:18 Blast Cells # 0.0 K/mm3 08/26/18 16:18 WBC Morphology Not Reportable 08/26/18 16:18 Hypersegmented Neuts Not Reportable 08/26/18 16:18 Hyposegmented Neuts Not Reportable 08/26/18 16:18 Hypogranular Neuts Not Reportable 08/26/18 16:18 Smudge Cells Not Reportable 08/26/18 16:18 Toxic Granulation Not Reportable 08/26/18 16:18 Toxic Vacuolation Not Reportable 08/26/18 16:18 Dohle Bodies Not Reportable 08/26/18 16:18 Pelger-Huet Anomaly Not Reportable 08/26/18 16:18 Amanda Rods Not Reportable 08/26/18 16:18 Platelet Estimate Consistent w auto 08/26/18 16:18 Clumped Platelets Not Reportable 08/26/18 16:18 Plt Clumps, EDTA Not Reportable 08/26/18 16:18 Large Platelets Not Reportable 08/26/18 16:18 Giant Platelets Not Reportable 08/26/18 16:18 Platelet Satelliting Not Reportable 08/26/18 16:18 Plt Morphology Comment Not Reportable 08/26/18 16:18 RBC Morphology Normal 08/26/18 16:18 Dimorphic RBCs Not Reportable 08/26/18 16:18 Polychromasia Not Reportable 08/26/18 16:18 Hypochromasia Not Reportable 08/26/18 16:18 Poikilocytosis Not Reportable 08/26/18 16:18 Anisocytosis Not Reportable 08/26/18 16:18 Microcytosis Not Reportable 08/26/18 16:18 Macrocytosis Not Reportable 08/26/18 16:18 Spherocytes Not Reportable 08/26/18 16:18 Pappenheimer Bodies Not Reportable 08/26/18 16:18 Sickle Cells Not Reportable 08/26/18 16:18 Target Cells Not Reportable 08/26/18 16:18 Tear Drop Cells Not Reportable 08/26/18 16:18 Ovalocytes Not Reportable 08/26/18 16:18 Helmet Cells Not Reportable 08/26/18 16:18 [place] Bodies Not Reportable 08/26/18 16:18 [place] Rings Not Reportable 08/26/18 16:18 Krissy Cells Not Reportable 08/26/18 16:18 Bite Cells Not Reportable 08/26/18 16:18 Crenated Cell Not Reportable 08/26/18 16:18 Elliptocytes Not Reportable 08/26/18 16:18 Acanthocytes (Spur) Not Reportable 08/26/18 16:18 Rouleaux Not Reportable 08/26/18 16:18 Hemoglobin C Crystals Not Reportable 08/26/18 16:18 Schistocytes Not Reportable 08/26/18 16:18 Malaria parasites Not Reportable 08/26/18 16:18 Elias Bodies Not Reportable 08/26/18 16:18 Hem Pathologist Commnt No 08/26/18 16:18 D-Dimer 222.80 ng/mlDDU (0-234) 08/26/18 17:54 POC ABG pH 7.338 (7.35-7.45) L 08/26/18 16:56 POC ABG pCO2 47.7 (35-45) H 08/26/18 16:56 POC ABG pO2 86 (80-105) 08/26/18 16:56 POC ABG HCO3 25.7 08/26/18 16:56 POC ABG Total CO2 27 08/26/18 16:56 POC ABG O2 Sat 96 08/26/18 16:56 POC ABG Base Excess 0 08/26/18 16:56 FiO2 36 % 08/26/18 16:56 Sodium 133 mmol/L (137-145) L 08/27/18 03:31 Potassium 4.7 mmol/L (3.6-5.0) 08/27/18 03:31 Chloride 96.3 mmol/L (98-107) L 08/27/18 03:31 Carbon Dioxide 27 mmol/L (22-30) 08/27/18 03:31 Anion Gap 14 mmol/L 08/27/18 03:31 BUN 24 mg/dL (9-20) H 08/27/18 03:31 Creatinine 0.7 mg/dL (0.8-1.5) L 08/27/18 03:31 Estimated GFR > 60 ml/min 08/27/18 03:31 BUN/Creatinine Ratio 34 % 08/27/18 03:31 Glucose 321 mg/dL (75-100) H 08/27/18 03:31 POC Glucose 226 (70-105) H 08/27/18 11:47 Lactic Acid 1.40 mmol/L (0.7-2.0) 08/26/18 16:54 Calcium 8.9 mg/dL (8.4-10.2) 08/27/18 03:31 Total Bilirubin 0.80 mg/dL (0.1-1.2) 08/26/18 16:54 Direct Bilirubin 0.3 mg/dL (0-0.2) H 08/26/18 16:54 Indirect Bilirubin 0.5 mg/dL 08/26/18 16:54 AST 24 units/L (5-40) 08/26/18 16:54 ALT 54 units/L (7-56) 08/26/18 16:54 Alkaline Phosphatase 76 units/L (35-129) 08/26/18 16:54 NT-Pro-B Natriuret Pep 5240 pg/mL (0-900) H 08/26/18 16:54 Total Protein 6.2 g/dL (6.3-8.2) L 08/26/18 16:54 Albumin 3.8 g/dL (3.9-5) L 08/26/18 16:54 Albumin/Globulin Ratio 1.6 % 08/26/18 16:54
[2018-08-27] MEDS ORDERED: SOLU-Medrol IV SCH (14:00)
--- NOTE | 2018-08-27 14:22 | Consultation ---
History of Present Illness Consult date: 08/27/18 Consult reason: atrial fibrillation History of present illness: The patient is a 57-year-old man with a history of severe COPD, on home oxygen, and on multiple previous evaluations found to have severe pulmonary hypertension and cor pulmonale. Left heart size and systolic function has been within normal limits. He presents to the hospital at this time with worsening shortness of breath. He was evaluated by the medical team and admitted to the stepdown unit. Cardiology consultation was requested for "CHF". There is no clinical or radiologic evidence of significant left heart failure, but on this presentation, the patient has new onset atrial fibrillation. He has remained in atrial fibrillation with rapid ventricular response since his presentation. On my review of his previous EKGs, he was in a stable sinus rhythm as recently as 3 weeks ago, and on serial ECGs dating back to 2011. Past History Past Medical History: COPD, diabetes, DVT, heart failure, hypertension Past Surgical History: cholecystectomy, Other ( L. leg bypass, L. leg stents, Hernia. 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 denies: smoking, alcohol abuse, prescription drug abuse Family history: diabetes, hypertension Medications and Allergies Allergies Allergy/AdvReac Type Severity Reaction Status Date / Time ketorolac tromethamine Allergy Vomiting Verified 01/31/17 05:38 [From Toradol] tramadol Allergy Vomiting Verified 01/31/17 05:38 Home Medications Medication Instructions Recorded Confirmed Last Taken Type ALPRAZolam [Xanax TAB] 0.5 mg PO TID PRN #10 tablet 11/17/17 08/26/18 Unknown Rx AtorvaSTATin [Lipitor] 40 mg PO QHS #30 11/17/17 08/26/18 11/14/17 Rx metFORMIN [Glucophage] 500 mg PO BID tablet 11/17/17 08/26/18 Unknown Rx Gabapentin [Neurontin] 800 mg PO TID 08/02/18 08/26/18 Unknown History Famotidine [Pepcid] 20 mg PO BID #60 tablet 08/15/18 08/26/18 Unknown Rx Furosemide [Lasix] 60 mg PO QDAY 30 Days tablet 08/15/18 08/26/18 Unknown Rx HYDROcodone/ACETAMINOPHEN 1 each PO Q6H #10 tablet 08/15/18 08/26/18 Unknown Rx [Hydrocodone-Acetamin 5-325 mg] Insulin Glargine [Lantus VIAL] 15 units SUB-Q QHS #1 vial 08/15/18 08/26/18 Unknown Rx Sildenafil [Revatio] 20 mg PO TID 30 Days tablet 08/15/18 08/26/18 Unknown Rx Sulfamethoxazole/Trimethoprim 1 each PO DAILY 30 Days tablet 08/15/18 08/26/18 Unknown Rx [Bactrim DS TAB] predniSONE [Deltasone] 60 mg PO QDAY 30 Days tab 08/15/18 08/26/18 Unknown Rx Active Meds: Active Medications Acetaminophen/Hydrocodone Bitart ([place] 5/325) 1 each PO Q6H PRN PRN Reason: Pain , Severe (7-10) Last Admin: 08/27/18 12:16 Dose: 1 each Documented by: Albuterol/Ipratropium (Duoneb *Not For Prn Use*) 1 ampul IH BID [facility] Alprazolam (Xanax) 0.5 mg PO TID PRN PRN Reason: Anxiety Last Admin: 08/27/18 10:40 Dose: 0.5 mg Documented by: Atorvastatin Calcium (Lipitor) 40 mg PO QHS [facility] Last Admin: 08/26/18 23:13 Dose: 40 mg Documented by: Dextrose (D50w (25gm) Syringe) 50 ml IV PRN PRN PRN Reason: Hypoglycemia Enoxaparin Sodium (Lovenox) 40 mg SUB-Q QDAY@2200 [facility] Famotidine (Pepcid) 20 mg PO BID [facility] Last Admin: 08/27/18 09:53 Dose: 20 mg Documented by: Furosemide (Lasix) 40 mg IV 0600,1800 [facility] Last Admin: 08/27/18 05:32 Dose: 40 mg Documented by: Gabapentin (Neurontin) 800 mg PO TID [facility] Last Admin: 08/27/18 14:00 Dose: 800 mg Documented by: Insulin Glargine (Lantus) 15 units SUB-Q QHS [facility] Last Admin: 08/26/18 23:12 Dose: 15 units Documented by: Insulin Human Lispro (Humalog) 0 unit SUB-Q [facility]; Protocol Last Admin: 08/27/18 12:18 Dose: 4 unit Documented by: Methylprednisolone Sodium Succinate (Solu-Medrol) 40 mg IV Q8HR [facility] Last Admin: 08/27/18 14:00 Dose: 40 mg Documented by: Sildenafil Citrate (Revatio) 20 mg PO TID [facility] Last Admin: 08/27/18 14:00 Dose: 20 mg Documented by: Sodium Chloride (Sodium Chloride Flush Syringe 10 Ml) 10 ml IV BID [facility] Last Admin: 08/27/18 09:53 Dose: 10 ml Documented by: Sodium Chloride (Sodium Chloride Flush Syringe 10 Ml) 10 ml IV PRN PRN PRN Reason: LINE FLUSH Review of Systems Cardiovascular: palpitations, rapid/irregular heart beat, shortness of breath, no chest pain, no orthopnea, no edema, no syncope, no lightheadedness Physical Examination Vital Signs Temp Pulse Resp BP Pulse Ox 98 F 120 H 20 119/78 95 08/26/18 16:02 08/26/18 16:02 08/26/18 16:02 08/26/18 16:02 08/26/18 16:02 General appearance: no acute distress HEENT: Positive: PERRL Neck: Positive: neck supple Cardiac: Positive: irregularly irregular Lungs: Positive: Decreased Breath Sounds Neuro: Positive: Grossly Intact Abdomen: Positive: Soft Male genitourinary: Positive: deferred Skin: Positive: Clear Extremities: Absent: edema Results 08/26/18 16:18 08/27/18 03:31 Cardiac Enzymes 08/26/18 Range/Units 16:54 AST 24 (5-40) units/L CBC 08/26/18 Range/Units 16:18 WBC 9.8 (4.5-11.0) K/mm3 RBC 5.36 H (3.65-5.03) M/mm3 Hgb 16.7 H (11.8-15.2) gm/dl Hct 49.7 H (35.5-45.6) % Plt Count 123 L (140-440) K/mm3 Comprehensive Metabolic Panel 08/26/18 08/26/18 08/27/18 Range/Units 16:18 16:54 03:31 Sodium 136 L 133 L (137-145) mmol/L Potassium 5.2 H 4.7 (3.6-5.0) mmol/L Chloride 97.8 L 96.3 L (98-107) mmol/L Carbon Dioxide 27 27 (22-30) mmol/L BUN 22 H 24 H (9-20) mg/dL Creatinine 1.0 0.7 L (0.8-1.5) mg/dL Glucose 412 H 321 H (75-100) mg/dL Calcium 8.9 8.9 (8.4-10.2) mg/dL Direct Bilirubin 0.3 H (0-0.2) mg/dL Indirect Bilirubin 0.5 mg/dL AST 24 (5-40) units/L ALT 54 (7-56) units/L Alkaline Phosphatase 76 (35-129) units/L Total Protein 6.2 L (6.3-8.2) g/dL Albumin 3.8 L (3.9-5) g/dL EKG interpretations - Telemetry EKG Rhythm: Atrial Fibrillation Assessment and Plan - Patient Problems (1) New onset atrial fibrillation Current Visit: Yes Status: Acute Plan to address problem: Patient has a new onset rapid atrial fibrillation, which is likely contributing to the worsening of his chronic dyspnea. We will institute rate control with Cardizem and digitalis, and recommend a chronic oral anticoagulation with Coumadin. (2) Cor pulmonale Current Visit: Yes Status: Acute Plan to address problem: Continue pulmonary management of his chronic cor pulmonale and chronic pulmonary hypertension.
[2018-08-27] MEDS ORDERED: PROVENTIL IH PRN (14:33)
[2018-08-27] MEDS ORDERED: COUMADIN PO SCH (17:00)
[2018-08-27] MEDS: LANOXIN IV SCH (17:04)
[2018-08-27] MEDS: CARDIZEM PO SCH (17:05)
[2018-08-27] MEDS: LANOXIN PO SCH (18:23)
[2018-08-27 18:36] LABS: INR 0.92 (0.87-1.13)
--- NOTE | 2018-08-27 18:55 | Consultation ---
History of Present Illness Consult date: 08/27/18 Requesting physician: SANDRA COLE Reason for consult: dyspnea History of present illness: 57 yo with COPD on home O2 admitted with worsening SOB requiring BIPAP. Has afib with RVR currently. Back on NC currently. Denies fevers, chills. Has reproducible chest pain L chest. No cough, sputum, fevers. + LE edema. Active Medications Acetaminophen/Hydrocodone Bitart ([place] 5/325) 1 each PO Q6H PRN PRN Reason: Pain , Severe (7-10) Last Admin: 08/27/18 12:16 Dose: 1 each Documented by: Albuterol (Proventil) 2.5 mg IH Q4HRT PRN PRN Reason: Shortness Of Breath Albuterol/Ipratropium (Duoneb *Not For Prn Use*) 1 ampul IH BID [facility] Last Admin: 08/27/18 12:01 Dose: 1 ampul Documented by: Alprazolam (Xanax) 0.5 mg PO TID PRN PRN Reason: Anxiety Last Admin: 08/27/18 10:40 Dose: 0.5 mg Documented by: Atorvastatin Calcium (Lipitor) 40 mg PO QHS [facility] Last Admin: 08/26/18 23:13 Dose: 40 mg Documented by: Dextrose (D50w (25gm) Syringe) 50 ml IV PRN PRN PRN Reason: Hypoglycemia Digoxin (Lanoxin) 0.25 mg PO DAILY@1700 [facility] Last Admin: 08/27/18 18:23 Dose: 0.25 mg Documented by: Diltiazem HCl (Cardizem) 60 mg PO Q6HR [facility] Last Admin: 08/27/18 17:05 Dose: 60 mg Documented by: Enoxaparin Sodium (Lovenox) 40 mg SUB-Q QDAY@2200 [facility] Famotidine (Pepcid) 20 mg PO BID [facility] Last Admin: 08/27/18 09:53 Dose: 20 mg Documented by: Furosemide (Lasix) 40 mg IV 0600,1800 [facility] Last Admin: 08/27/18 18:22 Dose: 40 mg Documented by: Gabapentin (Neurontin) 800 mg PO TID [facility] Last Admin: 08/27/18 14:00 Dose: 800 mg Documented by: Insulin Glargine (Lantus) 15 units SUB-Q QHS [facility] Last Admin: 08/26/18 23:12 Dose: 15 units Documented by: Insulin Human Lispro (Humalog) 0 unit SUB-Q [facility]; Protocol Last Admin: 08/27/18 17:08 Dose: 3 unit Documented by: Methylprednisolone Sodium Succinate (Solu-Medrol) 80 mg IV Q8HR [facility] Nicotine (Habitrol) 7 mg TD QDAY [facility] Sodium Chloride (Sodium Chloride Flush Syringe 10 Ml) 10 ml IV BID [facility] Last Admin: 08/27/18 09:53 Dose: 10 ml Documented by: Sodium Chloride (Sodium Chloride Flush Syringe 10 Ml) 10 ml IV PRN PRN PRN Reason: LINE FLUSH Warfarin Sodium (Coumadin) 7.5 mg PO DAILY@1700 [facility]; Protocol Past History Past Medical History: COPD, diabetes, DVT, heart failure, hypertension Past Surgical History: cholecystectomy, Other ( L. leg bypass, L. leg stents, Hernia. 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 denies: smoking, alcohol abuse, prescription drug abuse Family history: diabetes, hypertension Medications and Allergies Allergies Allergy/AdvReac Type Severity Reaction Status Date / Time ketorolac tromethamine Allergy Vomiting Verified 01/31/17 05:38 [From Toradol] tramadol Allergy Vomiting Verified 01/31/17 05:38 Home Medications Medication Instructions Recorded Confirmed Last Taken Type RX: ALPRAZolam [Xanax TAB] 0.5 mg PO TID PRN #10 tablet 11/17/17 08/26/18 Unknown Rx RX: AtorvaSTATin [Lipitor] 40 mg PO QHS #30 11/17/17 08/26/18 11/14/17 Rx RX: metFORMIN [Glucophage] 500 mg PO BID tablet 11/17/17 08/26/18 Unknown Rx RX: Gabapentin [Neurontin] 800 mg PO TID 08/02/18 08/26/18 Unknown History Furosemide [Lasix] 60 mg PO QDAY 30 Days tablet 08/15/18 08/26/18 Unknown Rx HYDROcodone/ACETAMINOPHEN 1 each PO Q6H #10 tablet 08/15/18 08/26/18 Unknown Rx [Hydrocodone-Acetamin 5-325 mg] RX: Famotidine [Pepcid] 20 mg PO BID #60 tablet 08/15/18 08/26/18 Unknown Rx RX: Insulin Glargine [Lantus VIAL] 15 units SUB-Q QHS #1 vial 08/15/18 08/26/18 Unknown Rx RX: Sildenafil [Revatio] 20 mg PO TID 30 Days tablet 08/15/18 08/26/18 Unknown Rx RX: predniSONE [Deltasone] 60 mg PO QDAY 30 Days tab 08/15/18 08/26/18 Unknown Rx Sulfamethoxazole/Trimethoprim 1 each PO DAILY 30 Days tablet 08/15/18 08/26/18 Unknown Rx [Bactrim DS TAB] Active Meds: Active Medications Acetaminophen/Hydrocodone Bitart ([place] 5/325) 1 each PO Q6H PRN PRN Reason: Pain , Severe (7-10) Last Admin: 08/27/18 12:16 Dose: 1 each Documented by: Albuterol (Proventil) 2.5 mg IH Q4HRT PRN PRN Reason: Shortness Of Breath Albuterol/Ipratropium (Duoneb *Not For Prn Use*) 1 ampul IH BID [facility] Last Admin: 08/27/18 12:01 Dose: 1 ampul Documented by: Alprazolam (Xanax) 0.5 mg PO TID PRN PRN Reason: Anxiety Last Admin: 08/27/18 10:40 Dose: 0.5 mg Documented by: Atorvastatin Calcium (Lipitor) 40 mg PO QHS [facility] Last Admin: 08/26/18 23:13 Dose: 40 mg Documented by: Dextrose (D50w (25gm) Syringe) 50 ml IV PRN PRN PRN Reason: Hypoglycemia Digoxin (Lanoxin) 0.25 mg PO DAILY@1700 [facility] Last Admin: 08/27/18 18:23 Dose: 0.25 mg Documented by: Diltiazem HCl (Cardizem) 60 mg PO Q6HR [facility] Last Admin: 08/27/18 17:05 Dose: 60 mg Documented by: Enoxaparin Sodium (Lovenox) 40 mg SUB-Q QDAY@2200 [facility] Famotidine (Pepcid) 20 mg PO BID [facility] Last Admin: 08/27/18 09:53 Dose: 20 mg Documented by: Furosemide (Lasix) 40 mg IV 0600,1800 [facility] Last Admin: 08/27/18 18:22 Dose: 40 mg Documented by: Gabapentin (Neurontin) 800 mg PO TID [facility] Last Admin: 08/27/18 14:00 Dose: 800 mg Documented by: Insulin Glargine (Lantus) 15 units SUB-Q QHS [facility] Last Admin: 08/26/18 23:12 Dose: 15 units Documented by: Insulin Human Lispro (Humalog) 0 unit SUB-Q [facility]; Protocol Last Admin: 08/27/18 17:08 Dose: 3 unit Documented by: Methylprednisolone Sodium Succinate (Solu-Medrol) 80 mg IV Q8HR [facility] Nicotine (Habitrol) 7 mg TD QDAY [facility] Sodium Chloride (Sodium Chloride Flush Syringe 10 Ml) 10 ml IV BID [facility] Last Admin: 08/27/18 09:53 Dose: 10 ml Documented by: Sodium Chloride (Sodium Chloride Flush Syringe 10 Ml) 10 ml IV PRN PRN PRN Reason: LINE FLUSH Warfarin Sodium (Coumadin) 7.5 mg PO DAILY@1700 [facility]; Protocol Review of Systems All systems: negative Physical Examination Vital signs: Vital Signs Temp Pulse Resp BP Pulse Ox 98 F 120 H 20 119/78 95 08/26/18 16:02 08/26/18 16:02 08/26/18 16:02 08/26/18 16:02 08/26/18 16:02 General appearance: no acute distress, alert, other (obese) Eyes: non-icteric ENT: oropharynx moist Neck: supple Effort: normal Ascultation: Bilateral: wheezes Cardiovascular: irregular rhythm (ir/ir, no mrg) Gastrointestinal: normoactive bowel sounds, soft, non-tender, non-distended Integumentary: normal Extremities: no cyanosis, edema (1+ bilateral LE edema) normal mental status, non-focal exam, pupils equal and round, CN II-XII normal mood appropriate, affect normal Results - Laboratory Findings CBC and BMP: 08/26/18 16:18 08/27/18 03:31 ABG POC ABG pH 7.338 (7.35-7.45) L 08/26/18 16:56 POC ABG pCO2 47.7 (35-45) H 08/26/18 16:56 POC ABG pO2 86 (80-105) 08/26/18 16:56 POC ABG HCO3 25.7 08/26/18 16:56 POC ABG Total CO2 27 08/26/18 16:56 POC ABG O2 Sat 96 08/26/18 16:56 PT/INR, D-dimer PT 12.8 Sec. (12.2-14.9) 08/27/18 17:56 INR 0.92 (0.87-1.13) 08/27/18 17:56 D-Dimer 222.80 ng/mlDDU (0-234) 08/26/18 17:54 Abnormal lab findings: Abnormal Labs 08/26/18 08/26/18 08/26/18 16:18 16:18 16:54 RBC 5.36 H Hgb 16.7 H Hct 49.7 H Plt Count 123 L Seg Neuts % (Manual) 90.0 H Lymphocytes % (Manual) 0 L Seg Neutrophils # Man 8.8 H Lymphocytes # (Manual) 0.0 L POC ABG pH POC ABG pCO2 Sodium 136 L Potassium 5.2 H Chloride 97.8 L BUN 22 H Creatinine Glucose 412 H POC Glucose Direct Bilirubin 0.3 H NT-Pro-B Natriuret Pep 5240 H Total Protein 6.2 L Albumin 3.8 L 08/26/18 08/26/18 08/27/18 16:56 21:14 03:31 RBC Hgb Hct Plt Count Seg Neuts % (Manual) Lymphocytes % (Manual) Seg Neutrophils # Man Lymphocytes # (Manual) POC ABG pH 7.338 L POC ABG pCO2 47.7 H Sodium 133 L Potassium Chloride 96.3 L BUN 24 H Creatinine 0.7 L Glucose 321 H POC Glucose 337 H Direct Bilirubin NT-Pro-B Natriuret Pep Total Protein Albumin 08/27/18 08/27/18 08/27/18 08:00 11:47 16:24 RBC Hgb Hct Plt Count Seg Neuts % (Manual) Lymphocytes % (Manual) Seg Neutrophils # Man Lymphocytes # (Manual) POC ABG pH POC ABG pCO2 Sodium Potassium Chloride BUN Creatinine Glucose POC Glucose 267 H 226 H 227 H Direct Bilirubin NT-Pro-B Natriuret Pep Total Protein Albumin - Diagnostic Findings Chest x-ray: report reviewed (no acute process per report; I cannot review images) Assessment and Plan Imp: 1. Centrilobular emphysema per prior CT, with COPD exac. 2. ILD per prior CT, could be smoking-related or IPF 3. Acute respiratory failure, hypercapnea 4. Obesity; suspect DUANE 5. Afib with RVR 6. Pulm HTN, probably WHO groups II and III 7. Chronic nicotine dependence, cigs Rec: 1. Increase Solumedrol 2. Lasix IV, Bronchodilators 3. BIPAP prn 4. Afib as per Dr. Valdez recs 5. Nicotine patch; stop smoking 6. Try to obtain bedside Spirometry 7. Doubt WHO group I PAH; given the degree of pulm HTN on Echo I would consider obtaining a RHC once optivolemic (would also depend on how severe his COPD is on Coy); would hold the Revatio pending RHC and PFT data Plan of care reviewed w/ patient, he understands/agrees Thanks for the consult.
[2018-08-27] MEDS: COUMADIN PO SCH (19:52)
[2018-08-27] MEDS: HABITROL TD SCH (20:04)
[2018-08-27] MEDS: LANTUS SUB-Q SCH (21:40)
[2018-08-27] MEDS: LOVENOX SUB-Q SCH (21:41)
[2018-08-27] MEDS: SOLU-Medrol IV SCH (21:42)
[2018-08-28] MEDS: CARDIZEM PO SCH ×4 (00:10→18:22)
[2018-08-28] MEDS: NORCO 5/325 PO PRN ×3 (03:17→18:05)
[2018-08-28] MEDS: SOLU-Medrol IV SCH ×3 (05:41→21:12)
[2018-08-28] MEDS: LASIX IV SCH ×2 (05:41→18:23)
[2018-08-28 05:44] LABS: Hematocrit 48.3 % (35.5-45.6); Hemoglobin 15.9 gm/dl (11.8-15.2); Mean Corpuscular HGB Conc 33 % (32-34); Mean Corpuscular Volume 93 fl (84-94); Platelet Count 109 K/mm3 (140-440); Red Blood Count 5.22 M/mm3 (3.65-5.03); Red Cell Distribution Width 14.2 % (13.2-15.2)
[2018-08-28 06:21] LABS: BUN/Creatinine Ratio 43; Blood Urea Nitrogen 26 mg/dL (9-20); Calcium 8.4 mg/dL (8.4-10.2); Hemolysis Index 12
[2018-08-28 07:09] LABS: Band Neutrophils # (Manual) 0.2 K/mm3; Basophils % (Manual) 0 % (0.0-1.8); Eosinophils % (Manual) 0 % (0.0-4.3); RBC Morphology Normal; Total Cells Counted 100
[2018-08-28] MEDS: DUONEB *Not for PRN Use IH SCH ×2 (09:00→20:53)
[2018-08-28] MEDS: HABITROL TD SCH (09:14)
[2018-08-28] MEDS: PEPCID PO SCH ×2 (09:15→21:15)
[2018-08-28] MEDS: NEURONTIN PO SCH ×3 (09:15→21:15)
[2018-08-28] MEDS: HumaLOG SUB-Q SCH ×4 (09:16→21:31)
[2018-08-28] MEDS: SODIUM CHLORIDE FLUSH SYRINGE 10 ML IV SCH ×2 (09:17→22:10)
--- NOTE | 2018-08-28 10:15 | Progress Note ---
Assessment and Plan Assessment and plan: Acute on chronic hypoxemic respiratory failure. Continue BiPAP as clinically indicated. Follow-up serial chest x-ray. Etiology multifactorial secondary to COPD, CHF, ILD, OHS/DUANE, severe pulmonary hypertension and cor pulmonale. Acute on chronic systolic heart failure. Echocardiogram from 08/02/2018 revealed EF of 40-45% with global left ventricular systolic function mildly decreased. Patient had evidence of severe pulmonary hypertension. Cardiology consulted. ILD. Revatio on hold per pulmonary recommendations. COPD exacerbation. Continue bronchodilators and steroid treatment. Empiric antibody started in ER. Cor pulmonale. Consider right heart catheterization Per pulmonary when stable Severe pulmonary hypertension. Ventilation perfusion scan on last admission consistent with COPD, no evidence of chronic thrombo-embolic pulmonary hypertension. New onset Atrial fibrillation with RVR. Continue per cardiology. Continue Cardizem, digoxin and Coumadin Morbid obesity Tobacco dependence [employer] on smoking cessation, nicotine patch Hyperlipidemia; continue statin Diabetes mellitus type II, uncontrolled Continue ssi and lantus qhs DVT prophylaxis History Interval history: No new issues overnight. Hospitalist Physical - Constitutional Vitals: Temp Pulse Resp BP Pulse Ox 97.2 F L 76 16 129/76 96 08/28/18 08:00 08/28/18 09:20 08/28/18 09:20 08/28/18 08:00 08/28/18 09:12 General appearance: Present: no acute distress - EENT Eyes: Present: PERRL, EOM intact ENT: hearing intact, clear oral mucosa, dentition normal - Neck Neck: Present: supple, normal ROM - Respiratory Respiratory effort: normal Respiratory: bilateral: CTA - Cardiovascular Rhythm: regular Heart Sounds: Present: S1 & S2. Absent: gallop, rub - Extremities Extremities: no ischemia, No edema, Full ROM - Abdominal General gastrointestinal: soft, non-tender, non-distended, normal bowel sounds - Integumentary Integumentary: Present: clear, warm, dry - Neurologic Neurologic: CNII-XII intact, moves all extremities Results - Labs CBC & Chem 7: 08/28/18 05:19 08/28/18 05:19 Labs: Laboratory Last Values WBC 6.7 K/mm3 (4.5-11.0) 08/28/18 05:19 RBC 5.22 M/mm3 (3.65-5.03) H 08/28/18 05:19 Hgb 15.9 gm/dl (11.8-15.2) H 08/28/18 05:19 Hct 48.3 % (35.5-45.6) H 08/28/18 05:19 MCV 93 fl (84-94) 08/28/18 05:19 MCH 31 pg (28-32) 08/28/18 05:19 MCHC 33 % (32-34) 08/28/18 05:19 RDW 14.2 % (13.2-15.2) 08/28/18 05:19 Plt Count 109 K/mm3 (140-440) L 08/28/18 05:19 Add Manual Diff Complete 08/28/18 05:19 Total Counted 100 08/28/18 05:19 Seg Neutrophils % [employer] 08/28/18 05:19 Seg Neuts % (Manual) 95.0 % (40.0-70.0) H 08/28/18 05:19 Band Neutrophils % 3.0 % 08/28/18 05:19 Lymphocytes % (Manual) 1.0 % (13.4-35.0) L 08/28/18 05:19 Reactive Lymphs % (Man) 0 % 08/28/18 05:19 Monocytes % (Manual) 1.0 % (0.0-7.3) 08/28/18 05:19 Eosinophils % (Manual) 0 % (0.0-4.3) 08/28/18 05:19 Basophils % (Manual) 0 % (0.0-1.8) 08/28/18 05:19 Metamyelocytes % 0 % 08/28/18 05:19 Myelocytes % 0 % 08/28/18 05:19 Promyelocytes % 0 % 08/28/18 05:19 Blast Cells % 0 % 08/28/18 05:19 Nucleated RBC % Not Reportable 08/28/18 05:19 Seg Neutrophils # Man 6.4 K/mm3 (1.8-7.7) 08/28/18 05:19 Band Neutrophils # 0.2 K/mm3 08/28/18 05:19 Lymphocytes # (Manual) 0.1 K/mm3 (1.2-5.4) L 08/28/18 05:19 Abs React Lymphs (Man) 0.0 K/mm3 08/28/18 05:19 Monocytes # (Manual) 0.1 K/mm3 (0.0-0.8) 08/28/18 05:19 Eosinophils # (Manual) 0.0 K/mm3 (0.0-0.4) 08/28/18 05:19 Basophils # (Manual) 0.0 K/mm3 (0.0-0.1) 08/28/18 05:19 Metamyelocytes # 0.0 K/mm3 08/28/18 05:19 Myelocytes # 0.0 K/mm3 08/28/18 05:19 Promyelocytes # 0.0 K/mm3 08/28/18 05:19 Blast Cells # 0.0 K/mm3 08/28/18 05:19 WBC Morphology Not Reportable 08/28/18 05:19 Hypersegmented Neuts Not Reportable 08/28/18 05:19 Hyposegmented Neuts Not Reportable 08/28/18 05:19 Hypogranular Neuts Not Reportable 08/28/18 05:19 Smudge Cells Not Reportable 08/28/18 05:19 Toxic Granulation Not Reportable 08/28/18 05:19 Toxic Vacuolation Not Reportable 08/28/18 05:19 Dohle Bodies Not Reportable 08/28/18 05:19 Pelger-Huet Anomaly Not Reportable 08/28/18 05:19 Amanda Rods Not Reportable 08/28/18 05:19 Platelet Estimate Appears normal 08/28/18 05:19 Clumped Platelets Not Reportable 08/28/18 05:19 Plt Clumps, EDTA Not Reportable 08/28/18 05:19 Large Platelets Not Reportable 08/28/18 05:19 Giant Platelets Not Reportable 08/28/18 05:19 Platelet Satelliting Not Reportable 08/28/18 05:19 Plt Morphology Comment Not Reportable 08/28/18 05:19 RBC Morphology Normal 08/28/18 05:19 Dimorphic RBCs Not Reportable 08/28/18 05:19 Polychromasia Not Reportable 08/28/18 05:19 Hypochromasia Not Reportable 08/28/18 05:19 Poikilocytosis Not Reportable 08/28/18 05:19 Anisocytosis Not Reportable 08/28/18 05:19 Microcytosis Not Reportable 08/28/18 05:19 Macrocytosis Not Reportable 08/28/18 05:19 Spherocytes Not Reportable 08/28/18 05:19 Pappenheimer Bodies Not Reportable 08/28/18 05:19 Sickle Cells Not Reportable 08/28/18 05:19 Target Cells Not Reportable 08/28/18 05:19 Tear Drop Cells Not Reportable 08/28/18 05:19 Ovalocytes Not Reportable 08/28/18 05:19 Helmet Cells Not Reportable 08/28/18 05:19 [place] Bodies Not Reportable 08/28/18 05:19 [place] Rings Not Reportable 08/28/18 05:19 Krissy Cells Not Reportable 08/28/18 05:19 Bite Cells Not Reportable 08/28/18 05:19 Crenated Cell Not Reportable 08/28/18 05:19 Elliptocytes Not Reportable 08/28/18 05:19 Acanthocytes (Spur) Not Reportable 08/28/18 05:19 Rouleaux Not Reportable 08/28/18 05:19 Hemoglobin C Crystals Not Reportable 08/28/18 05:19 Schistocytes Not Reportable 08/28/18 05:19 Malaria parasites Not Reportable 08/28/18 05:19 Elias Bodies Not Reportable 08/28/18 05:19 Hem Pathologist Commnt No 08/28/18 05:19 PT 12.8 Sec. (12.2-14.9) 08/27/18 17:56 INR 0.92 (0.87-1.13) 08/27/18 17:56 D-Dimer 222.80 ng/mlDDU (0-234) 08/26/18 17:54 POC ABG pH 7.338 (7.35-7.45) L 08/26/18 16:56 POC ABG pCO2 47.7 (35-45) H 08/26/18 16:56 POC ABG pO2 86 (80-105) 08/26/18 16:56 POC ABG HCO3 25.7 08/26/18 16:56 POC ABG Total CO2 27 08/26/18 16:56 POC ABG O2 Sat 96 08/26/18 16:56 POC ABG Base Excess 0 08/26/18 16:56 FiO2 36 % 08/26/18 16:56 Sodium 135 mmol/L (137-145) L 08/28/18 05:19 Potassium 4.8 mmol/L (3.6-5.0) 08/28/18 05:19 Chloride 97.4 mmol/L (98-107) L 08/28/18 05:19 Carbon Dioxide 27 mmol/L (22-30) 08/28/18 05:19 Anion Gap 15 mmol/L 08/28/18 05:19 BUN 26 mg/dL (9-20) H 08/28/18 05:19 Creatinine 0.6 mg/dL (0.8-1.5) L 08/28/18 05:19 Estimated GFR > 60 ml/min 08/28/18 05:19 BUN/Creatinine Ratio 43 % 08/28/18 05:19 Glucose 313 mg/dL (75-100) H 08/28/18 05:19 POC Glucose 264 (70-105) H 08/28/18 07:29 Lactic Acid 1.40 mmol/L (0.7-2.0) 08/26/18 16:54 Calcium 8.4 mg/dL (8.4-10.2) 08/28/18 05:19 Total Bilirubin 0.80 mg/dL (0.1-1.2) 08/26/18 16:54 Direct Bilirubin 0.3 mg/dL (0-0.2) H 08/26/18 16:54 Indirect Bilirubin 0.5 mg/dL 08/26/18 16:54 AST 24 units/L (5-40) 08/26/18 16:54 ALT 54 units/L (7-56) 08/26/18 16:54 Alkaline Phosphatase 76 units/L (35-129) 08/26/18 16:54 NT-Pro-B Natriuret Pep 5240 pg/mL (0-900) H 08/26/18 16:54 Total Protein 6.2 g/dL (6.3-8.2) L 08/26/18 16:54 Albumin 3.8 g/dL (3.9-5) L 08/26/18 16:54 Albumin/Globulin Ratio 1.6 % 08/26/18 16:54
[2018-08-28] MEDS ORDERED: AFLURIA QUAD 2018-2019 SYRINGE IM ONE (12:00)
--- NOTE | 2018-08-28 15:04 | Progress Note ---
Assessment and Plan - Patient Problems (1) New onset atrial fibrillation Current Visit: Yes Status: Acute Plan to address problem: Continue rate control, initiate (2) Cor pulmonale Current Visit: Yes Status: Acute Plan to address problem: Further management of chronic cor pulmonale will depend on clinical course and the recommendations of pulmonary medicine. Subjective Date of service: 08/28/18 Interval history: Patient is comfortable, remains in atrial fibrillation with well-controlled ventricular rate. Objective Vital Signs Temp Pulse Pulse Resp Resp BP Pulse Ox 08/28/18 14:00 75 12 118/74 94 08/28/18 13:00 78 14 123/76 95 08/28/18 12:00 97.6 F 86 9 L 122/85 99 08/28/18 11:00 76 11 L 108/59 96 08/28/18 10:00 73 16 108/59 94 08/28/18 09:20 76 16 08/28/18 09:12 96 08/28/18 09:10 71 12 08/28/18 09:00 76 15 129/76 94 08/28/18 08:00 97.2 F L 67 11 L 129/76 97 08/28/18 07:00 97.2 F L 68 12 111/75 92 08/28/18 06:00 79 15 111/75 94 08/28/18 05:00 66 13 110/71 90 08/28/18 04:00 97.8 F 69 10 L 110/71 94 08/28/18 03:00 73 16 111/62 92 08/28/18 02:00 69 13 111/62 96 08/28/18 01:00 73 13 107/78 97 08/28/18 00:10 77 107/78 08/28/18 00:00 97.4 F L 79 14 107/78 94 08/27/18 23:00 104 H 14 147/79 89 08/27/18 22:00 77 14 104/48 92 08/27/18 21:00 75 12 104/48 94 08/27/18 20:14 74 10 L 108/58 93 08/27/18 20:00 98.2 F 73 8 L 108/58 92 08/27/18 19:00 80 12 104/64 93 08/27/18 18:23 104 H 103/64 08/27/18 18:00 106 H 14 115/75 92 08/27/18 17:05 103 H 127/59 08/27/18 17:04 103 H 127/59 08/27/18 17:00 97 H 12 130/76 94 08/27/18 16:00 83 12 130/76 94 08/27/18 15:56 98.0 F - Physical Examination General: No Apparent Distress HEENT: Positive: PERRL Neck: Positive: neck supple Cardiac: Positive: irregularly irregular Lungs: Positive: Decreased Breath Sounds Neuro: Positive: Grossly Intact Abdomen: Positive: Soft Skin: Positive: Clear Extremities: Absent: edema - Labs and Meds Coagulation 08/27/18 Range/Units 17:56 PT 12.8 (12.2-14.9) Sec. INR 0.92 (0.87-1.13) CBC 08/28/18 Range/Units 05:19 WBC 6.7 (4.5-11.0) K/mm3 RBC 5.22 H (3.65-5.03) M/mm3 Hgb 15.9 H (11.8-15.2) gm/dl Hct 48.3 H (35.5-45.6) % Plt Count 109 L (140-440) K/mm3 Comprehensive Metabolic Panel 08/28/18 Range/Units 05:19 Sodium 135 L (137-145) mmol/L Potassium 4.8 (3.6-5.0) mmol/L Chloride 97.4 L (98-107) mmol/L Carbon Dioxide 27 (22-30) mmol/L BUN 26 H (9-20) mg/dL Creatinine 0.6 L (0.8-1.5) mg/dL Glucose 313 H (75-100) mg/dL Calcium 8.4 (8.4-10.2) mg/dL
--- NOTE | 2018-08-28 15:13 | Progress Note ---
Assessment and Plan 57 y/o male with ILD and chronic respiratory failure admitted with exacerbation of ILD and chronic respiratory failure. No new recs for today. Please see below. No objection to discharge from a pulmonary standpoint. 1. Continue steroids at 40q8. Will need prolonged taper at discharge. 60 daily for 4 days, 40 for 4, 20 for 4, 10 for 4 then stop. 2. Continue daily net negative state as long as BP and renal function allow. 3. Continue supplemental O2. 4. Discharge soon, hopefully in the next 24-46 hours. Per cards send out on lasix and agree with this. (40 daily) Subjective Date of service: 08/28/18 Interval history: No acute events. On 4 liters NC Objective Vital Signs - 12hr 08/28/18 08/28/18 08/28/18 04:00 05:00 06:00 Temperature 97.8 F Pulse Rate 69 66 79 Pulse Rate [ Anterior Bilateral Throughout] Respiratory 10 L 13 15 Rate Respiratory Rate [Anterior Bilateral Throughout] Blood Pressure 110/71 110/71 111/75 O2 Sat by Pulse 94 90 94 Oximetry 08/28/18 08/28/18 08/28/18 07:00 08:00 09:00 Temperature 97.2 F L 97.2 F L Pulse Rate 68 67 76 Pulse Rate [ Anterior Bilateral Throughout] Respiratory 12 11 L 15 Rate Respiratory Rate [Anterior Bilateral Throughout] Blood Pressure 111/75 129/76 129/76 O2 Sat by Pulse 92 97 94 Oximetry 08/28/18 08/28/18 08/28/18 09:10 09:12 09:20 Temperature Pulse Rate Pulse Rate [ 71 76 Anterior Bilateral Throughout] Respiratory Rate Respiratory 12 16 Rate [Anterior Bilateral Throughout] Blood Pressure O2 Sat by Pulse 96 Oximetry 08/28/18 08/28/18 08/28/18 10:00 11:00 12:00 Temperature 97.6 F Pulse Rate 73 76 86 Pulse Rate [ Anterior Bilateral Throughout] Respiratory 16 11 L 9 L Rate Respiratory Rate [Anterior Bilateral Throughout] Blood Pressure 108/59 108/59 122/85 O2 Sat by Pulse 94 96 99 Oximetry 08/28/18 08/28/18 13:00 14:00 Temperature Pulse Rate 78 75 Pulse Rate [ Anterior Bilateral Throughout] Respiratory 14 12 Rate Respiratory Rate [Anterior Bilateral Throughout] Blood Pressure 123/76 118/74 O2 Sat by Pulse 95 94 Oximetry Constitutional: no acute distress, alert, other (obese) Eyes: non-icteric ENT: oropharynx moist Neck: supple Effort: normal Ascultation: Bilateral: wheezes Cardiovascular: irregular rhythm (ir/ir, no mrg) Gastrointestinal: normoactive bowel sounds, soft, non-tender, non-distended Integumentary: normal Extremities: no cyanosis, edema (1+ bilateral LE edema) Neurologic: normal mental status, non-focal exam, pupils equal and round, CN II-XII normal Psychiatric: mood appropriate, affect normal CBC and BMP: 08/31/18 05:58 08/31/18 05:58 ABG, PT/INR, D-dimer: ABG POC ABG pH 7.338 (7.35-7.45) L 08/26/18 16:56 POC ABG pCO2 47.7 (35-45) H 08/26/18 16:56 POC ABG pO2 86 (80-105) 08/26/18 16:56 POC ABG HCO3 25.7 08/26/18 16:56 POC ABG Total CO2 27 08/26/18 16:56 POC ABG O2 Sat 96 08/26/18 16:56 PT/INR, D-dimer PT 12.8 Sec. (12.2-14.9) 08/27/18 17:56 INR 0.92 (0.87-1.13) 08/27/18 17:56 D-Dimer 222.80 ng/mlDDU (0-234) 08/26/18 17:54 Abnormal lab findings: Abnormal Labs 08/26/18 08/26/18 08/26/18 16:18 16:18 16:54 RBC 5.36 H Hgb 16.7 H Hct 49.7 H Plt Count 123 L Seg Neuts % (Manual) 90.0 H Lymphocytes % (Manual) 0 L Seg Neutrophils # Man 8.8 H Lymphocytes # (Manual) 0.0 L POC ABG pH POC ABG pCO2 Sodium 136 L Potassium 5.2 H Chloride 97.8 L BUN 22 H Creatinine Glucose 412 H POC Glucose Direct Bilirubin 0.3 H NT-Pro-B Natriuret Pep 5240 H Total Protein 6.2 L Albumin 3.8 L 08/26/18 08/26/18 08/27/18 16:56 21:14 03:31 RBC Hgb Hct Plt Count Seg Neuts % (Manual) Lymphocytes % (Manual) Seg Neutrophils # Man Lymphocytes # (Manual) POC ABG pH 7.338 L POC ABG pCO2 47.7 H Sodium 133 L Potassium Chloride 96.3 L BUN 24 H Creatinine 0.7 L Glucose 321 H POC Glucose 337 H Direct Bilirubin NT-Pro-B Natriuret Pep Total Protein Albumin 08/27/18 08/27/18 08/27/18 08:00 11:47 16:24 RBC Hgb Hct Plt Count Seg Neuts % (Manual) Lymphocytes % (Manual) Seg Neutrophils # Man Lymphocytes # (Manual) POC ABG pH POC ABG pCO2 Sodium Potassium Chloride BUN Creatinine Glucose POC Glucose 267 H 226 H 227 H Direct Bilirubin NT-Pro-B Natriuret Pep Total Protein Albumin 08/27/18 08/28/18 08/28/18 21:19 05:19 05:19 RBC 5.22 H Hgb 15.9 H Hct 48.3 H Plt Count 109 L Seg Neuts % (Manual) 95.0 H Lymphocytes % (Manual) 1.0 L Seg Neutrophils # Man Lymphocytes # (Manual) 0.1 L POC ABG pH POC ABG pCO2 Sodium 135 L Potassium Chloride 97.4 L BUN 26 H Creatinine 0.6 L Glucose 313 H POC Glucose 345 H Direct Bilirubin NT-Pro-B Natriuret Pep Total Protein Albumin 08/28/18 08/28/18 07:29 11:16 RBC Hgb Hct Plt Count Seg Neuts % (Manual) Lymphocytes % (Manual) Seg Neutrophils # Man Lymphocytes # (Manual) POC ABG pH POC ABG pCO2 Sodium Potassium Chloride BUN Creatinine Glucose POC Glucose 264 H 405 H Direct Bilirubin NT-Pro-B Natriuret Pep Total Protein Albumin
[2018-08-28] MEDS: COUMADIN PO SCH (16:28)
[2018-08-28] MEDS: LANOXIN PO SCH (16:29)
[2018-08-28] MEDS: XANAX PO PRN (21:14)
[2018-08-28] MEDS: LOVENOX SUB-Q SCH (21:16)
[2018-08-28] MEDS: LANTUS SUB-Q SCH (21:17)
[2018-08-29] MEDS: CARDIZEM PO SCH ×5 (00:32→17:05)
[2018-08-29] MEDS: NORCO 5/325 PO PRN ×4 (02:06→23:20)
[2018-08-29] MEDS: DUONEB *Not for PRN Use IH SCH ×4 (03:42→21:07)
[2018-08-29 05:42] LABS: Hematocrit 48.4 % (35.5-45.6); Hemoglobin 15.9 gm/dl (11.8-15.2); Mean Corpuscular HGB Conc 33 % (32-34); Mean Corpuscular Volume 93 fl (84-94); Platelet Count 125 K/mm3 (140-440); Red Blood Count 5.23 M/mm3 (3.65-5.03); Red Cell Distribution Width 14.7 % (13.2-15.2)
[2018-08-29] MEDS: SOLU-Medrol IV SCH ×3 (05:47→22:12)
[2018-08-29] MEDS: LASIX IV SCH ×2 (05:51→17:05)
[2018-08-29 05:52] LABS: INR 1.25 (0.87-1.13)
[2018-08-29 07:24] LABS: BUN/Creatinine Ratio 35; Blood Urea Nitrogen 28 mg/dL (9-20); Calcium 8.9 mg/dL (8.4-10.2); Hemolysis Index 14
[2018-08-29 07:38] LABS: Band Neutrophils # (Manual) 0.1 K/mm3; Basophils % (Manual) 0 % (0.0-1.8); Eosinophils % (Manual) 0 % (0.0-4.3); RBC Morphology Normal; Total Cells Counted 100
[2018-08-29 07:39] LABS: Platelet Estimate Consistent w Auto
[2018-08-29] MEDS: LANOXIN IV SCH (07:40)
[2018-08-29] MEDS: HumaLOG SUB-Q SCH ×4 (08:06→22:10)
[2018-08-29] MEDS: NEURONTIN PO SCH ×3 (08:08→22:10)
--- NOTE | 2018-08-29 09:13 | Progress Note ---
Assessment and Plan Assessment and plan: Acute on chronic hypoxemic respiratory failure. Continue BiPAP as clinically indicated. Follow-up serial chest x-ray. Etiology multifactorial secondary to COPD, CHF, ILD, OHS/DUANE, severe pulmonary hypertension and cor pulmonale. Acute on chronic systolic heart failure. Echocardiogram from 08/02/2018 revealed EF of 40-45% with global left ventricular systolic function mildly decreased. Patient had evidence of severe pulmonary hypertension. Cardiology consulted. ILD. Revatio on hold per pulmonary recommendations. COPD exacerbation. Continue bronchodilators and steroid treatment. Empiric antibody started in ER. Cor pulmonale. Consider right heart catheterization Per pulmonary when stable Severe pulmonary hypertension. Ventilation perfusion scan on last admission consistent with COPD, no evidence of chronic thrombo-embolic pulmonary hypertension. New onset Atrial fibrillation with RVR. Continue per cardiology. 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 Increase night Lantus to 25 Units qhs May transfer to Tele History Interval history: Feels better, Less SOB No chest pain Hospitalist Physical - Physical exam Narrative exam: GEN: Not in acute distress, sitting up in bed HEENT: Normocephalic, atraumatic, Neck: supple, No JVD Lungs: Decreased breath sounds bilat, Rhonchi bilat Heart:S1 and S2 regular, no murmurs, rubs or gallop, Abd:soft, non tender, non distended, normal bowel sounds Ext: No edema, no clubbing or cyanosis Neuro: Awake,alert, oriented x 3, No focal signs Psych:Normal mood - Constitutional Vitals: Temp Pulse Resp BP Pulse Ox 97.5 F L 71 17 127/77 94 08/29/18 08:00 08/29/18 08:00 08/29/18 08:00 08/29/18 08:00 08/29/18 08:00 General appearance: Present: no acute distress Results - Labs CBC & Chem 7: 08/29/18 05:29 08/29/18 05:29 Labs: Laboratory Last Values WBC 7.2 K/mm3 (4.5-11.0) 08/29/18 05:29 RBC 5.23 M/mm3 (3.65-5.03) H 08/29/18 05:29 Hgb 15.9 gm/dl (11.8-15.2) H 08/29/18 05:29 Hct 48.4 % (35.5-45.6) H 08/29/18 05:29 MCV 93 fl (84-94) 08/29/18 05:29 MCH 30 pg (28-32) 08/29/18 05:29 MCHC 33 % (32-34) 08/29/18 05:29 RDW 14.7 % (13.2-15.2) 08/29/18 05:29 Plt Count 125 K/mm3 (140-440) L 08/29/18 05:29 Add Manual Diff Complete 08/29/18 05:29 Total Counted 100 08/29/18 05:29 Seg Neutrophils % Voltmeter Operator 08/29/18 05:29 Seg Neuts % (Manual) 83.0 % (40.0-70.0) H 08/29/18 05:29 Band Neutrophils % 2.0 % 08/29/18 05:29 Lymphocytes % (Manual) 9.0 % (13.4-35.0) L 08/29/18 05:29 Reactive Lymphs % (Man) 0 % 08/29/18 05:29 Monocytes % (Manual) 6.0 % (0.0-7.3) 08/29/18 05:29 Eosinophils % (Manual) 0 % (0.0-4.3) 08/29/18 05:29 Basophils % (Manual) 0 % (0.0-1.8) 08/29/18 05:29 Metamyelocytes % 0 % 08/29/18 05:29 Myelocytes % 0 % 08/29/18 05:29 Promyelocytes % 0 % 08/29/18 05:29 Blast Cells % 0 % 08/29/18 05:29 Nucleated RBC % Not Reportable 08/29/18 05:29 Seg Neutrophils # Man 6.0 K/mm3 (1.8-7.7) 08/29/18 05:29 Band Neutrophils # 0.1 K/mm3 08/29/18 05:29 Lymphocytes # (Manual) 0.6 K/mm3 (1.2-5.4) L 08/29/18 05:29 Abs React Lymphs (Man) 0.0 K/mm3 08/29/18 05:29 Monocytes # (Manual) 0.4 K/mm3 (0.0-0.8) 08/29/18 05:29 Eosinophils # (Manual) 0.0 K/mm3 (0.0-0.4) 08/29/18 05:29 Basophils # (Manual) 0.0 K/mm3 (0.0-0.1) 08/29/18 05:29 Metamyelocytes # 0.0 K/mm3 08/29/18 05:29 Myelocytes # 0.0 K/mm3 08/29/18 05:29 Promyelocytes # 0.0 K/mm3 08/29/18 05:29 Blast Cells # 0.0 K/mm3 08/29/18 05:29 WBC Morphology Not Reportable 08/29/18 05:29 Hypersegmented Neuts Not Reportable 08/29/18 05:29 Hyposegmented Neuts Not Reportable 08/29/18 05:29 Hypogranular Neuts Not Reportable 08/29/18 05:29 Smudge Cells Not Reportable 08/29/18 05:29 Toxic Granulation Not Reportable 08/29/18 05:29 Toxic Vacuolation Not Reportable 08/29/18 05:29 Dohle Bodies Not Reportable 08/29/18 05:29 Pelger-Huet Anomaly Not Reportable 08/29/18 05:29 Amanda Rods Not Reportable 08/29/18 05:29 Platelet Estimate Consistent w auto 08/29/18 05:29 Clumped Platelets Not Reportable 08/29/18 05:29 Plt Clumps, EDTA Not Reportable 08/29/18 05:29 Large Platelets Not Reportable 08/29/18 05:29 Giant Platelets Not Reportable 08/29/18 05:29 Platelet Satelliting Not Reportable 08/29/18 05:29 Plt Morphology Comment Not Reportable 08/29/18 05:29 RBC Morphology Normal 08/29/18 05:29 Dimorphic RBCs Not Reportable 08/29/18 05:29 Polychromasia Not Reportable 08/29/18 05:29 Hypochromasia Not Reportable 08/29/18 05:29 Poikilocytosis Not Reportable 08/29/18 05:29 Anisocytosis Not Reportable 08/29/18 05:29 Microcytosis Not Reportable 08/29/18 05:29 Macrocytosis Not Reportable 08/29/18 05:29 Spherocytes Not Reportable 08/29/18 05:29 Pappenheimer Bodies Not Reportable 08/29/18 05:29 Sickle Cells Not Reportable 08/29/18 05:29 Target Cells Not Reportable 08/29/18 05:29 Tear Drop Cells Not Reportable 08/29/18 05:29 Ovalocytes Not Reportable 08/29/18 05:29 Helmet Cells Not Reportable 08/29/18 05:29 [place] Bodies Not Reportable 08/29/18 05:29 [place] Rings Not Reportable 08/29/18 05:29 [place] Cells Not Reportable 08/29/18 05:29 Bite Cells Not Reportable 08/29/18 05:29 Crenated Cell Not Reportable 08/29/18 05:29 Elliptocytes Not Reportable 08/29/18 05:29 Acanthocytes (Spur) Not Reportable 08/29/18 05:29 Rouleaux Not Reportable 08/29/18 05:29 Hemoglobin C Crystals Not Reportable 08/29/18 05:29 Schistocytes Not Reportable 08/29/18 05:29 Malaria parasites Not Reportable 08/29/18 05:29 Elias Bodies Not Reportable 08/29/18 05:29 Hem Pathologist Commnt No 08/29/18 05:29 PT 16.1 Sec. (12.2-14.9) H 08/29/18 05:29 INR 1.25 (0.87-1.13) H 08/29/18 05:29 D-Dimer 222.80 ng/mlDDU (0-234) 08/26/18 17:54 POC ABG pH 7.338 (7.35-7.45) L 08/26/18 16:56 POC ABG pCO2 47.7 (35-45) H 08/26/18 16:56 POC ABG pO2 86 (80-105) 08/26/18 16:56 POC ABG HCO3 25.7 08/26/18 16:56 POC ABG Total CO2 27 08/26/18 16:56 POC ABG O2 Sat 96 08/26/18 16:56 POC ABG Base Excess 0 08/26/18 16:56 FiO2 36 % 08/26/18 16:56 Sodium 136 mmol/L (137-145) L 08/29/18 05:29 Potassium 5.0 mmol/L (3.6-5.0) 08/29/18 05:29 Chloride 96.1 mmol/L (98-107) L 08/29/18 05:29 Carbon Dioxide 28 mmol/L (22-30) 08/29/18 05:29 Anion Gap 17 mmol/L 08/29/18 05:29 BUN 28 mg/dL (9-20) H 08/29/18 05:29 Creatinine 0.8 mg/dL (0.8-1.5) 08/29/18 05:29 Estimated GFR > 60 ml/min 08/29/18 05:29 BUN/Creatinine Ratio 35 % 08/29/18 05:29 Glucose 377 mg/dL (75-100) H 08/29/18 05:29 POC Glucose 321 (70-105) H 08/29/18 07:53 Lactic Acid 1.40 mmol/L (0.7-2.0) 08/26/18 16:54 Calcium 8.9 mg/dL (8.4-10.2) 08/29/18 05:29 Total Bilirubin 0.80 mg/dL (0.1-1.2) 08/26/18 16:54 Direct Bilirubin 0.3 mg/dL (0-0.2) H 08/26/18 16:54 Indirect Bilirubin 0.5 mg/dL 08/26/18 16:54 AST 24 units/L (5-40) 08/26/18 16:54 ALT 54 units/L (7-56) 08/26/18 16:54 Alkaline Phosphatase 76 units/L (35-129) 08/26/18 16:54 NT-Pro-B Natriuret Pep 5240 pg/mL (0-900) H 08/26/18 16:54 Total Protein 6.2 g/dL (6.3-8.2) L 08/26/18 16:54 Albumin 3.8 g/dL (3.9-5) L 08/26/18 16:54 Albumin/Globulin Ratio 1.6 % 08/26/18 16:54 Nutrition/Malnutrition Assess - Dietary Evaluation Nutrition/Malnutrition Findings: Nutrition Notes Start: 08/28/18 14:37 Freq: Status: Active Protocol: Document 08/28/18 14:37 DUTCH (Rec: 08/28/18 14:42 [email or web address]) Nutrition Notes Need for Assessment generated from: Education Initial or Follow up Brief Note Pertinent Medications Coumadin Subjective/Other Information Pt screened for DNI education. He has not taken coumadin since 2012. Pt forgot which foods are high in vit K. Receptive to diet education. #1 Nutrition Diagnosis Food and nutrition-related knowledge deficit Etiology has not taken coumadin in 5 yrs As Evidenced by Signs and Symptoms pt unable to verbalize food sources of vit K Nutrition Intervention Teaching Recipient Patient Learning Readiness Good Teaching Methods Discussion Handout Response to Teaching Verbalize understanding Education Handouts Provided Vitamin K and Medications Barriers to Learning No Barriers RD phone number provided Yes Patient aware of follow up options Yes Goal #1 Adhere to low Vit K diet while taking coumadin Anticipated Discharge Needs: CHO-controlled, Low Vitamin K diet Follow-Up By: 09/01/18 Additional Comments F/U: LOS/intakes
[2018-08-29] MEDS: SODIUM CHLORIDE FLUSH SYRINGE 10 ML IV SCH ×2 (10:06→22:11)
[2018-08-29] MEDS: PEPCID PO SCH ×2 (10:07→22:10)
[2018-08-29] MEDS: HABITROL TD SCH (10:07)
[2018-08-29] MEDS: XANAX PO PRN ×3 (10:14→23:20)
--- NOTE | 2018-08-29 12:50 | Progress Note ---
Assessment and Plan 57 y/o male with ILD and chronic respiratory failure admitted with exacerbation of ILD and chronic respiratory failure. 1. Continue current dose of steroids. 2. Continue daily net negative state as long as BP and renal function allow. 3. Continue supplemental O2. Subjective Date of service: 08/29/18 Interval history: Per patient, thinks that breathing is better. Sitting up eating lunch. Remains on 4 liters with sats in the mid 90's. Objective Vital Signs - 12hr 08/29/18 08/29/18 08/29/18 01:00 02:00 03:00 Temperature Pulse Rate 68 69 73 Pulse Rate [ Anterior Bilateral Throughout] Pulse Rate [ From Monitor] Respiratory 12 10 L 11 L Rate Respiratory Rate [Anterior Bilateral Throughout] Blood Pressure 107/77 107/77 120/80 O2 Sat by Pulse Oximetry 08/29/18 08/29/18 08/29/18 04:00 04:19 05:00 Temperature 97.5 F L 97.8 F Pulse Rate 70 74 Pulse Rate [ Anterior Bilateral Throughout] Pulse Rate [ From Monitor] Respiratory 12 11 L Rate Respiratory Rate [Anterior Bilateral Throughout] Blood Pressure 120/80 110/80 O2 Sat by Pulse 93 Oximetry 08/29/18 08/29/18 08/29/18 05:51 06:00 07:00 Temperature Pulse Rate 80 71 82 Pulse Rate [ Anterior Bilateral Throughout] Pulse Rate [ From Monitor] Respiratory 17 13 Rate Respiratory Rate [Anterior Bilateral Throughout] Blood Pressure 120/84 111/81 122/44 O2 Sat by Pulse Oximetry 08/29/18 08/29/18 08/29/18 08:00 08:25 08:45 Temperature 97.5 F L Pulse Rate 63 Pulse Rate [ 64 68 Anterior Bilateral Throughout] Pulse Rate [ 71 From Monitor] Respiratory 14 Rate Respiratory 18 18 Rate [Anterior Bilateral Throughout] Blood Pressure 127/77 O2 Sat by Pulse 94 Oximetry 08/29/18 08/29/18 10:00 12:00 Temperature 98.4 F Pulse Rate Pulse Rate [ Anterior Bilateral Throughout] Pulse Rate [ From Monitor] Respiratory Rate Respiratory Rate [Anterior Bilateral Throughout] Blood Pressure O2 Sat by Pulse 97 Oximetry Constitutional: no acute distress, alert, other (obese) Eyes: non-icteric ENT: oropharynx moist Neck: supple Effort: normal Ascultation: Bilateral: wheezes, rales (dry crackles at the bases) Cardiovascular: irregular rhythm (ir/ir, no mrg) Gastrointestinal: normoactive bowel sounds, soft, non-tender, non-distended Integumentary: normal Extremities: no cyanosis, edema (1+ bilateral LE edema) Neurologic: normal mental status, non-focal exam, pupils equal and round, CN II- XII normal Psychiatric: mood appropriate, affect normal CBC and BMP: 08/29/18 05:29 08/29/18 05:29 ABG, PT/INR, D-dimer: ABG POC ABG pH 7.338 (7.35-7.45) L 08/26/18 16:56 POC ABG pCO2 47.7 (35-45) H 08/26/18 16:56 POC ABG pO2 86 (80-105) 08/26/18 16:56 POC ABG HCO3 25.7 08/26/18 16:56 POC ABG Total CO2 27 08/26/18 16:56 POC ABG O2 Sat 96 08/26/18 16:56 PT/INR, D-dimer PT 16.1 Sec. (12.2-14.9) H 08/29/18 05:29 INR 1.25 (0.87-1.13) H 08/29/18 05:29 D-Dimer 222.80 ng/mlDDU (0-234) 08/26/18 17:54 Abnormal lab findings: Abnormal Labs 08/26/18 08/26/18 08/26/18 16:18 16:18 16:54 RBC 5.36 H Hgb 16.7 H Hct 49.7 H Plt Count 123 L Seg Neuts % (Manual) 90.0 H Lymphocytes % (Manual) 0 L Seg Neutrophils # Man 8.8 H Lymphocytes # (Manual) 0.0 L PT INR POC ABG pH POC ABG pCO2 Sodium 136 L Potassium 5.2 H Chloride 97.8 L BUN 22 H Creatinine Glucose 412 H POC Glucose Direct Bilirubin 0.3 H NT-Pro-B Natriuret Pep 5240 H Total Protein 6.2 L Albumin 3.8 L 08/26/18 08/26/18 08/27/18 16:56 21:14 03:31 RBC Hgb Hct Plt Count Seg Neuts % (Manual) Lymphocytes % (Manual) Seg Neutrophils # Man Lymphocytes # (Manual) PT INR POC ABG pH 7.338 L POC ABG pCO2 47.7 H Sodium 133 L Potassium Chloride 96.3 L BUN 24 H Creatinine 0.7 L Glucose 321 H POC Glucose 337 H Direct Bilirubin NT-Pro-B Natriuret Pep Total Protein Albumin 08/27/18 08/27/18 08/27/18 08:00 11:47 16:24 RBC Hgb Hct Plt Count Seg Neuts % (Manual) Lymphocytes % (Manual) Seg Neutrophils # Man Lymphocytes # (Manual) PT INR POC ABG pH POC ABG pCO2 Sodium Potassium Chloride BUN Creatinine Glucose POC Glucose 267 H 226 H 227 H Direct Bilirubin NT-Pro-B Natriuret Pep Total Protein Albumin 08/27/18 08/28/18 08/28/18 21:19 05:19 05:19 RBC 5.22 H Hgb 15.9 H Hct 48.3 H Plt Count 109 L Seg Neuts % (Manual) 95.0 H Lymphocytes % (Manual) 1.0 L Seg Neutrophils # Man Lymphocytes # (Manual) 0.1 L PT INR POC ABG pH POC ABG pCO2 Sodium 135 L Potassium Chloride 97.4 L BUN 26 H Creatinine 0.6 L Glucose 313 H POC Glucose 345 H Direct Bilirubin NT-Pro-B Natriuret Pep Total Protein Albumin 08/28/18 08/28/18 08/28/18 07:29 11:16 16:10 RBC Hgb Hct Plt Count Seg Neuts % (Manual) Lymphocytes % (Manual) Seg Neutrophils # Man Lymphocytes # (Manual) PT INR POC ABG pH POC ABG pCO2 Sodium Potassium Chloride BUN Creatinine Glucose POC Glucose 264 H 405 H 444 H Direct Bilirubin NT-Pro-B Natriuret Pep Total Protein Albumin 08/28/18 08/28/18 08/29/18 18:00 21:17 05:29 RBC Hgb Hct Plt Count Seg Neuts % (Manual) Lymphocytes % (Manual) Seg Neutrophils # Man Lymphocytes # (Manual) PT 16.1 H INR 1.25 H POC ABG pH POC ABG pCO2 Sodium Potassium Chloride BUN Creatinine Glucose POC Glucose 399 H 315 H Direct Bilirubin NT-Pro-B Natriuret Pep Total Protein Albumin 08/29/18 08/29/18 08/29/18 05:29 05:29 07:53 RBC 5.23 H Hgb 15.9 H Hct 48.4 H Plt Count 125 L Seg Neuts % (Manual) 83.0 H Lymphocytes % (Manual) 9.0 L Seg Neutrophils # Man Lymphocytes # (Manual) 0.6 L PT INR POC ABG pH POC ABG pCO2 Sodium 136 L Potassium Chloride 96.1 L BUN 28 H Creatinine Glucose 377 H POC Glucose 321 H Direct Bilirubin NT-Pro-B Natriuret Pep Total Protein Albumin 08/29/18 11:32 RBC Hgb Hct Plt Count Seg Neuts % (Manual) Lymphocytes % (Manual) Seg Neutrophils # Man Lymphocytes # (Manual) PT INR POC ABG pH POC ABG pCO2 Sodium Potassium Chloride BUN Creatinine Glucose POC Glucose 449 H Direct Bilirubin NT-Pro-B Natriuret Pep Total Protein Albumin
--- NOTE | 2018-08-29 13:05 | Progress Note ---
Assessment and Plan - Patient Problems (1) New onset atrial fibrillation Current Visit: Yes Status: Acute Plan to address problem: Continue rate control, initiate long-term oral anticoagulation therapy. (2) Cor pulmonale Current Visit: Yes Status: Acute Plan to address problem: Further management of chronic cor pulmonale will depend on clinical course and the recommendations of pulmonary medicine. Subjective Date of service: 08/29/18 Interval history: Patient looks and feels comfortable, he remains in atrial fibrillation but a well-controlled ventricular rate on current medications. Objective Vital Signs Temp Pulse Pulse Pulse Resp Resp BP 08/29/18 12:51 92 H 130/80 08/29/18 12:00 98.4 F 08/29/18 10:00 08/29/18 08:45 68 18 08/29/18 08:25 64 18 08/29/18 08:00 97.5 F L 63 71 14 127/77 08/29/18 07:00 82 13 122/44 08/29/18 06:00 71 17 111/81 08/29/18 05:51 80 120/84 08/29/18 05:00 74 11 L 110/80 08/29/18 04:19 97.8 F 08/29/18 04:00 97.5 F L 70 12 120/80 08/29/18 03:00 73 11 L 120/80 08/29/18 02:00 69 10 L 107/77 08/29/18 01:00 68 12 107/77 08/29/18 00:47 76 111/81 08/29/18 00:32 62 115/80 08/29/18 00:00 97.5 F L 76 14 115/80 08/28/18 23:36 97.5 F L 08/28/18 23:00 77 13 119/63 08/28/18 22:15 08/28/18 22:00 74 19 111/75 08/28/18 21:00 84 11 L 119/63 08/28/18 20:00 76 12 118/75 08/28/18 19:17 97.8 F 08/28/18 19:00 89 19 118/75 08/28/18 18:22 83 118/75 08/28/18 18:05 18 08/28/18 18:00 83 13 122/73 08/28/18 17:00 81 14 123/82 08/28/18 16:29 85 123/82 08/28/18 16:18 62 08/28/18 16:14 80 10 L 118/74 08/28/18 16:00 97.2 F L 91 H 15 118/74 08/28/18 15:00 79 14 119/72 08/28/18 14:00 75 12 118/74 Pulse Ox 08/29/18 12:51 08/29/18 12:00 08/29/18 10:00 97 08/29/18 08:45 08/29/18 08:25 08/29/18 08:00 94 08/29/18 07:00 08/29/18 06:00 08/29/18 05:51 08/29/18 05:00 08/29/18 04:19 08/29/18 04:00 93 08/29/18 03:00 08/29/18 02:00 08/29/18 01:00 08/29/18 00:47 08/29/18 00:32 08/29/18 00:00 93 08/28/18 23:36 08/28/18 23:00 08/28/18 22:15 98 08/28/18 22:00 08/28/18 21:00 08/28/18 20:00 97 08/28/18 19:17 08/28/18 19:00 96 08/28/18 18:22 08/28/18 18:05 08/28/18 18:00 96 08/28/18 17:00 93 08/28/18 16:29 08/28/18 16:18 08/28/18 16:14 97 08/28/18 16:00 95 08/28/18 15:00 96 08/28/18 14:00 94 - Physical Examination General: No Apparent Distress HEENT: Positive: PERRL Neck: Positive: neck supple Cardiac: Positive: irregularly irregular Lungs: Positive: Decreased Breath Sounds Neuro: Positive: Grossly Intact Abdomen: Positive: Soft Skin: Positive: Clear Extremities: Absent: edema - Labs and Meds Coagulation 08/29/18 Range/Units 05:29 PT 16.1 H (12.2-14.9) Sec. INR 1.25 H (0.87-1.13) CBC 08/29/18 Range/Units 05:29 WBC 7.2 (4.5-11.0) K/mm3 RBC 5.23 H (3.65-5.03) M/mm3 Hgb 15.9 H (11.8-15.2) gm/dl Hct 48.4 H (35.5-45.6) % Plt Count 125 L (140-440) K/mm3 Comprehensive Metabolic Panel 08/29/18 Range/Units 05:29 Sodium 136 L (137-145) mmol/L Potassium 5.0 (3.6-5.0) mmol/L Chloride 96.1 L (98-107) mmol/L Carbon Dioxide 28 (22-30) mmol/L BUN 28 H (9-20) mg/dL Creatinine 0.8 (0.8-1.5) mg/dL Glucose 377 H (75-100) mg/dL Calcium 8.9 (8.4-10.2) mg/dL
[2018-08-29] MEDS: LANOXIN PO SCH (17:05)
[2018-08-29] MEDS: COUMADIN PO SCH (17:06)
[2018-08-29] MEDS ORDERED: LANTUS SUB-Q SCH (22:00)
[2018-08-29] MEDS: LOVENOX SUB-Q SCH (22:10)
[2018-08-30] MEDS: CARDIZEM PO SCH ×4 (00:13→18:20)
[2018-08-30] MEDS: SOLU-Medrol IV SCH ×3 (05:42→23:15)
[2018-08-30] MEDS: LASIX IV SCH ×2 (05:42→18:21)
[2018-08-30] MEDS: NORCO 5/325 PO PRN ×3 (05:42→18:21)
[2018-08-30 06:28] LABS: INR 1.71 (0.87-1.13)
[2018-08-30] MEDS: DUONEB *Not for PRN Use IH SCH ×3 (08:04→21:53)
[2018-08-30] MEDS: HumaLOG SUB-Q SCH ×4 (09:00→23:14)
[2018-08-30] MEDS: NEURONTIN PO SCH ×3 (09:09→19:57)
[2018-08-30] MEDS: PEPCID PO SCH ×2 (09:09→23:13)
[2018-08-30] MEDS: SODIUM CHLORIDE FLUSH SYRINGE 10 ML IV SCH ×2 (09:10→23:14)
[2018-08-30] MEDS: XANAX PO PRN (10:36)
--- NOTE | 2018-08-30 10:55 | Progress Note ---
Addendum entered and electronically signed by AMBROCIO AGUIRRE MD 08/30/18 10:58: Patient seen and examined Atrial fibrillation - rate controlled; on coumadin Cor-pulmonale with underlying COPD and ILD Continue same management Discharge home on lasix 40 mg po daily Original Note: Assessment and Plan Acute respiratory failure Hx of COPD on home oxygen Severe pulmonary hypertension Cor pulmonale Left heart size and systolic function has been within normal limits, LVEF 40-45. Atrial fibrillation, new onset initiated on warfarin on digoxin and cardizem for rate control Continue rate controlling agents and oral anticoagulation for atrial fibrillation that persists. Target INR of 2-3. Once discharged, patient will follow up with Dr Valdez Sep.05 at 220p. Subjective Date of service: 08/30/18 Interval history: Patient has no cardiac complaints. Afib with a well controlled ventricular rate on telemetry. Objective Vital Signs Temp Pulse Pulse Pulse Resp Resp BP 08/30/18 09:28 08/30/18 09:03 97.3 F L 64 20 08/30/18 09:02 97.3 F L 08/30/18 08:14 60 18 08/30/18 08:04 58 L 18 08/30/18 05:42 18 08/30/18 03:48 97.3 F L 80 16 127/83 08/29/18 23:00 98.3 F 65 16 08/29/18 21:17 70 18 08/29/18 21:14 68 18 08/29/18 21:13 08/29/18 21:07 68 18 08/29/18 20:50 64 08/29/18 20:00 08/29/18 19:29 97.7 F 64 16 119/70 08/29/18 18:56 97.5 F L 08/29/18 18:54 76 20 133/76 08/29/18 17:05 72 132/72 08/29/18 16:00 97.6 F 74 16 08/29/18 15:00 89 16 123/72 08/29/18 14:00 81 14 130/80 08/29/18 13:00 87 12 117/68 08/29/18 12:51 92 H 130/80 08/29/18 12:00 98.4 F 78 74 15 130/80 08/29/18 11:00 77 13 109/64 BP Pulse Ox 01/30/19 09:28 94 08/30/18 09:03 133/68 92 08/30/18 09:02 08/30/18 08:14 08/30/18 08:04 08/30/18 05:42 08/30/18 03:48 90 08/29/18 23:00 119/70 91 08/29/18 21:17 08/29/18 21:14 92 08/29/18 21:13 92 08/29/18 21:07 08/29/18 20:50 08/29/18 20:00 92 08/29/18 19:29 84 08/29/18 18:56 08/29/18 18:54 81 L 08/29/18 17:05 08/29/18 16:00 94 08/29/18 15:00 93 08/29/18 14:00 90 08/29/18 13:00 97 08/29/18 12:51 08/29/18 12:00 98 08/29/18 11:00 95 - Physical Examination General: No Apparent Distress HEENT: Positive: PERRL Cardiac: Positive: irregularly irregular Lungs: Positive: Decreased Breath Sounds Neuro: Positive: Grossly Intact Extremities: Absent: edema - Labs and Meds Coagulation 08/30/18 Range/Units 05:58 PT 20.5 H (12.2-14.9) Sec. INR 1.71 H (0.87-1.13)
--- NOTE | 2018-08-30 11:30 | Progress Note ---
Assessment and Plan Assessment and plan: Acute on chronic hypoxemic respiratory failure. Continue BiPAP as clinically indicated. Follow-up serial chest x-ray. Etiology multifactorial secondary to COPD, CHF, ILD, OHS/DUANE, severe pulmonary hypertension and cor pulmonale. Acute on chronic systolic heart failure. Echocardiogram from 08/02/2018 revealed EF of 40-45% with global left ventricular systolic function mildly decreased. Patient had evidence of severe pulmonary hypertension. Cardiology consulted. ILD. Revatio on hold per pulmonary recommendations. COPD exacerbation. Continue bronchodilators and steroid treatment. Empiric antibody started in ER. Cor pulmonale. Consider right heart catheterization Per pulmonary when stable Severe pulmonary hypertension. Ventilation perfusion scan on last admission consistent with COPD, no evidence of chronic thrombo-embolic pulmonary hypertension. New onset Atrial fibrillation with RVR. Continue per cardiology. 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 Increase night Lantus to 35 Units qhs History Interval history: Still has shortness of breath No chest pain Hospitalist Physical - Physical exam Narrative exam: GEN: Not in acute distress, sitting up in bed HEENT: Normocephalic, atraumatic, Neck: supple, No JVD Lungs: Decreased breath sounds bilat, Rhonchi bilat Heart:S1 and S2 regular, no murmurs, rubs or gallop, Abd:soft, non tender, non distended, normal bowel sounds Ext: No edema, no clubbing or cyanosis Neuro: Awake,alert, oriented x 3, No focal signs Psych:Normal mood - Constitutional Vitals: Temp Pulse Resp BP Pulse Ox 97.3 F L 64 20 133/68 94 08/30/18 09:03 08/30/18 09:03 08/30/18 09:03 08/30/18 09:03 08/30/18 09:28 General appearance: Present: no acute distress Results - Labs CBC & Chem 7: 08/29/18 05:29 08/29/18 05:29 Labs: Laboratory Last Values WBC 7.2 K/mm3 (4.5-11.0) 08/29/18 05:29 RBC 5.23 M/mm3 (3.65-5.03) H 08/29/18 05:29 Hgb 15.9 gm/dl (11.8-15.2) H 08/29/18 05:29 Hct 48.4 % (35.5-45.6) H 08/29/18 05:29 MCV 93 fl (84-94) 08/29/18 05:29 MCH 30 pg (28-32) 08/29/18 05:29 MCHC 33 % (32-34) 08/29/18 05:29 RDW 14.7 % (13.2-15.2) 08/29/18 05:29 Plt Count 125 K/mm3 (140-440) L 08/29/18 05:29 Add Manual Diff Complete 08/29/18 05:29 Total Counted 100 08/29/18 05:29 Seg Neutrophils % Shipper 08/29/18 05:29 Seg Neuts % (Manual) 83.0 % (40.0-70.0) H 08/29/18 05:29 Band Neutrophils % 2.0 % 08/29/18 05:29 Lymphocytes % (Manual) 9.0 % (13.4-35.0) L 08/29/18 05:29 Reactive Lymphs % (Man) 0 % 08/29/18 05:29 Monocytes % (Manual) 6.0 % (0.0-7.3) 08/29/18 05:29 Eosinophils % (Manual) 0 % (0.0-4.3) 08/29/18 05:29 Basophils % (Manual) 0 % (0.0-1.8) 08/29/18 05:29 Metamyelocytes % 0 % 08/29/18 05:29 Myelocytes % 0 % 08/29/18 05:29 Promyelocytes % 0 % 08/29/18 05:29 Blast Cells % 0 % 08/29/18 05:29 Nucleated RBC % Not Reportable 08/29/18 05:29 Seg Neutrophils # Man 6.0 K/mm3 (1.8-7.7) 08/29/18 05:29 Band Neutrophils # 0.1 K/mm3 08/29/18 05:29 Lymphocytes # (Manual) 0.6 K/mm3 (1.2-5.4) L 08/29/18 05:29 Abs React Lymphs (Man) 0.0 K/mm3 08/29/18 05:29 Monocytes # (Manual) 0.4 K/mm3 (0.0-0.8) 08/29/18 05:29 Eosinophils # (Manual) 0.0 K/mm3 (0.0-0.4) 08/29/18 05:29 Basophils # (Manual) 0.0 K/mm3 (0.0-0.1) 08/29/18 05:29 Metamyelocytes # 0.0 K/mm3 08/29/18 05:29 Myelocytes # 0.0 K/mm3 08/29/18 05:29 Promyelocytes # 0.0 K/mm3 08/29/18 05:29 Blast Cells # 0.0 K/mm3 08/29/18 05:29 WBC Morphology Not Reportable 08/29/18 05:29 Hypersegmented Neuts Not Reportable 08/29/18 05:29 Hyposegmented Neuts Not Reportable 08/29/18 05:29 Hypogranular Neuts Not Reportable 08/29/18 05:29 Smudge Cells Not Reportable 08/29/18 05:29 Toxic Granulation Not Reportable 08/29/18 05:29 Toxic Vacuolation Not Reportable 08/29/18 05:29 Dohle Bodies Not Reportable 08/29/18 05:29 Pelger-Huet Anomaly Not Reportable 08/29/18 05:29 Amanda Rods Not Reportable 08/29/18 05:29 Platelet Estimate Consistent w auto 08/29/18 05:29 Clumped Platelets Not Reportable 08/29/18 05:29 Plt Clumps, EDTA Not Reportable 08/29/18 05:29 Large Platelets Not Reportable 08/29/18 05:29 Giant Platelets Not Reportable 08/29/18 05:29 Platelet Satelliting Not Reportable 08/29/18 05:29 Plt Morphology Comment Not Reportable 08/29/18 05:29 RBC Morphology Normal 08/29/18 05:29 Dimorphic RBCs Not Reportable 08/29/18 05:29 Polychromasia Not Reportable 08/29/18 05:29 Hypochromasia Not Reportable 08/29/18 05:29 Poikilocytosis Not Reportable 08/29/18 05:29 Anisocytosis Not Reportable 08/29/18 05:29 Microcytosis Not Reportable 08/29/18 05:29 Macrocytosis Not Reportable 08/29/18 05:29 Spherocytes Not Reportable 08/29/18 05:29 Pappenheimer Bodies Not Reportable 08/29/18 05:29 Sickle Cells Not Reportable 08/29/18 05:29 Target Cells Not Reportable 08/29/18 05:29 Tear Drop Cells Not Reportable 08/29/18 05:29 Ovalocytes Not Reportable 08/29/18 05:29 Helmet Cells Not Reportable 08/29/18 05:29 [place] Bodies Not Reportable 08/29/18 05:29 [place] Rings Not Reportable 08/29/18 05:29 [place] Cells Not Reportable 08/29/18 05:29 Bite Cells Not Reportable 08/29/18 05:29 Crenated Cell Not Reportable 08/29/18 05:29 Elliptocytes Not Reportable 08/29/18 05:29 Acanthocytes (Spur) Not Reportable 08/29/18 05:29 Rouleaux Not Reportable 08/29/18 05:29 Hemoglobin C Crystals Not Reportable 08/29/18 05:29 Schistocytes Not Reportable 08/29/18 05:29 Malaria parasites Not Reportable 08/29/18 05:29 Elias Bodies Not Reportable 08/29/18 05:29 Hem Pathologist Commnt No 08/29/18 05:29 PT 20.5 Sec. (12.2-14.9) H 08/30/18 05:58 INR 1.71 (0.87-1.13) H 08/30/18 05:58 D-Dimer 222.80 ng/mlDDU (0-234) 08/26/18 17:54 POC ABG pH 7.338 (7.35-7.45) L 08/26/18 16:56 POC ABG pCO2 47.7 (35-45) H 08/26/18 16:56 POC ABG pO2 86 (80-105) 08/26/18 16:56 POC ABG HCO3 25.7 08/26/18 16:56 POC ABG Total CO2 27 08/26/18 16:56 POC ABG O2 Sat 96 08/26/18 16:56 POC ABG Base Excess 0 08/26/18 16:56 FiO2 36 % 08/26/18 16:56 Sodium 136 mmol/L (137-145) L 08/29/18 05:29 Potassium 5.0 mmol/L (3.6-5.0) 08/29/18 05:29 Chloride 96.1 mmol/L (98-107) L 08/29/18 05:29 Carbon Dioxide 28 mmol/L (22-30) 08/29/18 05:29 Anion Gap 17 mmol/L 08/29/18 05:29 BUN 28 mg/dL (9-20) H 08/29/18 05:29 Creatinine 0.8 mg/dL (0.8-1.5) 08/29/18 05:29 Estimated GFR > 60 ml/min 08/29/18 05:29 BUN/Creatinine Ratio 35 % 08/29/18 05:29 Glucose 377 mg/dL (75-100) H 08/29/18 05:29 POC Glucose 329 (70-105) H 08/30/18 05:44 Lactic Acid 1.40 mmol/L (0.7-2.0) 08/26/18 16:54 Calcium 8.9 mg/dL (8.4-10.2) 08/29/18 05:29 Total Bilirubin 0.80 mg/dL (0.1-1.2) 08/26/18 16:54 Direct Bilirubin 0.3 mg/dL (0-0.2) H 08/26/18 16:54 Indirect Bilirubin 0.5 mg/dL 08/26/18 16:54 AST 24 units/L (5-40) 08/26/18 16:54 ALT 54 units/L (7-56) 08/26/18 16:54 Alkaline Phosphatase 76 units/L (35-129) 08/26/18 16:54 NT-Pro-B Natriuret Pep 5240 pg/mL (0-900) H 08/26/18 16:54 Total Protein 6.2 g/dL (6.3-8.2) L 08/26/18 16:54 Albumin 3.8 g/dL (3.9-5) L 08/26/18 16:54 Albumin/Globulin Ratio 1.6 % 08/26/18 16:54 Nutrition/Malnutrition Assess - Dietary Evaluation Nutrition/Malnutrition Findings: Nutrition Notes Start: 08/28/18 14:37 Freq: Status: Active Protocol: Document 08/28/18 14:37 DUTCH (Rec: 08/28/18 14:42 DUTCH [id number]) Nutrition Notes Need for Assessment generated from: Education Initial or Follow up Brief Note Pertinent Medications Coumadin Subjective/Other Information Pt screened for DNI education. He has not taken coumadin since 2012. Pt forgot which foods are high in vit K. Receptive to diet education. #1 Nutrition Diagnosis Food and nutrition-related knowledge deficit Etiology has not taken coumadin in 5 yrs As Evidenced by Signs and Symptoms pt unable to verbalize food sources of vit K Nutrition Intervention Teaching Recipient Patient Learning Readiness Good Teaching Methods Discussion Handout Response to Teaching Verbalize understanding Education Handouts Provided Vitamin K and Medications Barriers to Learning No Barriers RD phone number provided Yes Patient aware of follow up options Yes Goal #1 Adhere to low Vit K diet while taking coumadin Anticipated Discharge Needs: CHO-controlled, Low Vitamin K diet Follow-Up By: 09/01/18 Additional Comments F/U: LOS/intakes
[2018-08-30] MEDS: HABITROL TD SCH (12:18)
--- NOTE | 2018-08-30 12:53 | Progress Note ---
Assessment and Plan 57 y/o male with ILD and chronic respiratory failure admitted with exacerbation of ILD and chronic respiratory failure. 1. Drop steroids to 40q8 2. Continue daily net negative state as long as BP and renal function allow. 3. Continue supplemental O2. Subjective Date of service: 08/30/18 Interval history: Transitioned out of IMCU. Stable. Reviewed Cardiology note. Objective Vital Signs - 12hr 08/30/18 08/30/18 08/30/18 03:48 05:42 08:04 Temperature 97.3 F L Pulse Rate 80 Pulse Rate [ 58 L Anterior Bilateral Throughout] Respiratory 16 18 Rate Respiratory 18 Rate [Anterior Bilateral Throughout] Blood Pressure 127/83 Blood Pressure [Left] O2 Sat by Pulse 90 Oximetry 08/30/18 08/30/18 08/30/18 08:14 09:02 09:03 Temperature 97.3 F L 97.3 F L Pulse Rate 64 Pulse Rate [ 60 Anterior Bilateral Throughout] Respiratory 20 Rate Respiratory 18 Rate [Anterior Bilateral Throughout] Blood Pressure Blood Pressure 133/68 [Left] O2 Sat by Pulse 92 Oximetry 08/30/18 08/30/18 08/30/18 09:28 11:52 11:54 Temperature 98.4 F Pulse Rate 60 Pulse Rate [ Anterior Bilateral Throughout] Respiratory 20 Rate Respiratory Rate [Anterior Bilateral Throughout] Blood Pressure 123/65 Blood Pressure [Left] O2 Sat by Pulse 94 95 Oximetry 08/30/18 12:18 Temperature Pulse Rate 60 Pulse Rate [ Anterior Bilateral Throughout] Respiratory Rate Respiratory Rate [Anterior Bilateral Throughout] Blood Pressure 123/65 Blood Pressure [Left] O2 Sat by Pulse Oximetry Constitutional: no acute distress, alert, other (obese) Eyes: non-icteric ENT: oropharynx moist Neck: supple Effort: normal Ascultation: Bilateral: wheezes, rales (dry crackles at the bases) Cardiovascular: irregular rhythm (ir/ir, no mrg) Gastrointestinal: normoactive bowel sounds, soft, non-tender, non-distended Integumentary: normal Extremities: no cyanosis, edema (1+ bilateral LE edema) Neurologic: normal mental status, non-focal exam, pupils equal and round, CN II- XII normal Psychiatric: mood appropriate, affect normal CBC and BMP: 08/29/18 05:29 08/29/18 05:29 ABG, PT/INR, D-dimer: ABG POC ABG pH 7.338 (7.35-7.45) L 08/26/18 16:56 POC ABG pCO2 47.7 (35-45) H 08/26/18 16:56 POC ABG pO2 86 (80-105) 08/26/18 16:56 POC ABG HCO3 25.7 08/26/18 16:56 POC ABG Total CO2 27 08/26/18 16:56 POC ABG O2 Sat 96 08/26/18 16:56 PT/INR, D-dimer PT 20.5 Sec. (12.2-14.9) H 08/30/18 05:58 INR 1.71 (0.87-1.13) H 08/30/18 05:58 D-Dimer 222.80 ng/mlDDU (0-234) 08/26/18 17:54 Abnormal lab findings: Abnormal Labs 08/26/18 08/26/18 08/26/18 16:18 16:18 16:54 RBC 5.36 H Hgb 16.7 H Hct 49.7 H Plt Count 123 L Seg Neuts % (Manual) 90.0 H Lymphocytes % (Manual) 0 L Seg Neutrophils # Man 8.8 H Lymphocytes # (Manual) 0.0 L PT INR POC ABG pH POC ABG pCO2 Sodium 136 L Potassium 5.2 H Chloride 97.8 L BUN 22 H Creatinine Glucose 412 H POC Glucose Direct Bilirubin 0.3 H NT-Pro-B Natriuret Pep 5240 H Total Protein 6.2 L Albumin 3.8 L 08/26/18 08/26/18 08/27/18 16:56 21:14 03:31 RBC Hgb Hct Plt Count Seg Neuts % (Manual) Lymphocytes % (Manual) Seg Neutrophils # Man Lymphocytes # (Manual) PT INR POC ABG pH 7.338 L POC ABG pCO2 47.7 H Sodium 133 L Potassium Chloride 96.3 L BUN 24 H Creatinine 0.7 L Glucose 321 H POC Glucose 337 H Direct Bilirubin NT-Pro-B Natriuret Pep Total Protein Albumin 08/27/18 08/27/18 08/27/18 08:00 11:47 16:24 RBC Hgb Hct Plt Count Seg Neuts % (Manual) Lymphocytes % (Manual) Seg Neutrophils # Man Lymphocytes # (Manual) PT INR POC ABG pH POC ABG pCO2 Sodium Potassium Chloride BUN Creatinine Glucose POC Glucose 267 H 226 H 227 H Direct Bilirubin NT-Pro-B Natriuret Pep Total Protein Albumin 08/27/18 08/28/18 08/28/18 21:19 05:19 05:19 RBC 5.22 H Hgb 15.9 H Hct 48.3 H Plt Count 109 L Seg Neuts % (Manual) 95.0 H Lymphocytes % (Manual) 1.0 L Seg Neutrophils # Man Lymphocytes # (Manual) 0.1 L PT INR POC ABG pH POC ABG pCO2 Sodium 135 L Potassium Chloride 97.4 L BUN 26 H Creatinine 0.6 L Glucose 313 H POC Glucose 345 H Direct Bilirubin NT-Pro-B Natriuret Pep Total Protein Albumin 08/28/18 08/28/18 08/28/18 07:29 11:16 16:10 RBC Hgb Hct Plt Count Seg Neuts % (Manual) Lymphocytes % (Manual) Seg Neutrophils # Man Lymphocytes # (Manual) PT INR POC ABG pH POC ABG pCO2 Sodium Potassium Chloride BUN Creatinine Glucose POC Glucose 264 H 405 H 444 H Direct Bilirubin NT-Pro-B Natriuret Pep Total Protein Albumin 08/28/18 08/28/18 08/29/18 18:00 21:17 05:29 RBC Hgb Hct Plt Count Seg Neuts % (Manual) Lymphocytes % (Manual) Seg Neutrophils # Man Lymphocytes # (Manual) PT 16.1 H INR 1.25 H POC ABG pH POC ABG pCO2 Sodium Potassium Chloride BUN Creatinine Glucose POC Glucose 399 H 315 H Direct Bilirubin NT-Pro-B Natriuret Pep Total Protein Albumin 08/29/18 08/29/18 08/29/18 05:29 05:29 07:53 RBC 5.23 H Hgb 15.9 H Hct 48.4 H Plt Count 125 L Seg Neuts % (Manual) 83.0 H Lymphocytes % (Manual) 9.0 L Seg Neutrophils # Man Lymphocytes # (Manual) 0.6 L PT INR POC ABG pH POC ABG pCO2 Sodium 136 L Potassium Chloride 96.1 L BUN 28 H Creatinine Glucose 377 H POC Glucose 321 H Direct Bilirubin NT-Pro-B Natriuret Pep Total Protein Albumin 08/29/18 08/29/18 08/29/18 11:32 17:30 21:19 RBC Hgb Hct Plt Count Seg Neuts % (Manual) Lymphocytes % (Manual) Seg Neutrophils # Man Lymphocytes # (Manual) PT INR POC ABG pH POC ABG pCO2 Sodium Potassium Chloride BUN Creatinine Glucose POC Glucose 449 H 155 H 385 H Direct Bilirubin NT-Pro-B Natriuret Pep Total Protein Albumin 08/30/18 08/30/18 08/30/18 05:44 05:58 11:53 RBC Hgb Hct Plt Count Seg Neuts % (Manual) Lymphocytes % (Manual) Seg Neutrophils # Man Lymphocytes # (Manual) PT 20.5 H INR 1.71 H POC ABG pH POC ABG pCO2 Sodium Potassium Chloride BUN Creatinine Glucose POC Glucose 329 H 407 H Direct Bilirubin NT-Pro-B Natriuret Pep Total Protein Albumin
[2018-08-30] MEDS: COUMADIN PO SCH (18:17)
[2018-08-30] MEDS: LANOXIN PO SCH (18:20)
[2018-08-30] MEDS: LOVENOX SUB-Q SCH (23:13)
[2018-08-30] MEDS: LANTUS SUB-Q SCH (23:14)
[2018-08-31] MEDS: CARDIZEM PO SCH ×4 (00:38→17:45)
[2018-08-31] MEDS: NORCO 5/325 PO PRN ×4 (00:39→20:55)
[2018-08-31] MEDS: LASIX IV SCH ×2 (06:17→17:45)
[2018-08-31] MEDS: SOLU-Medrol IV SCH ×3 (06:17→23:16)
[2018-08-31 06:21] LABS: Hematocrit 47.6 % (35.5-45.6); Hemoglobin 15.5 gm/dl (11.8-15.2); Mean Corpuscular HGB Conc 33 % (32-34); Mean Corpuscular Volume 93 fl (84-94); Platelet Count 122 K/mm3 (140-440); Red Blood Count 5.11 M/mm3 (3.65-5.03); Red Cell Distribution Width 14.7 % (13.2-15.2)
[2018-08-31 06:33] LABS: INR 2.48 (0.87-1.13)
[2018-08-31 06:42] LABS: BUN/Creatinine Ratio 38; Blood Urea Nitrogen 34 mg/dL (9-20); Calcium 8.8 mg/dL (8.4-10.2); Hemolysis Index 7
[2018-08-31] MEDS: DUONEB *Not for PRN Use IH SCH ×3 (07:59→20:59)
[2018-08-31] MEDS ORDERED: LANTUS SUB-Q SCH (09:00)
[2018-08-31] MEDS: PEPCID PO SCH ×2 (09:04→23:17)
[2018-08-31] MEDS: HABITROL TD SCH (09:05)
[2018-08-31] MEDS: HumaLOG SUB-Q SCH ×4 (09:05→23:17)
[2018-08-31] MEDS: SODIUM CHLORIDE FLUSH SYRINGE 10 ML IV SCH ×2 (09:09→23:17)
--- NOTE | 2018-08-31 10:45 | Progress Note ---
Addendum entered and electronically signed by MARGIE LARSEN MD 08/31/18 14:16: Medical therapy for atrial fibrillation including rate control agents and oral a nticoagulation. Original Note: Assessment and Plan Acute respiratory failure Hx of COPD on home oxygen Severe pulmonary hypertension Cor pulmonale Left heart size and systolic function has been within normal limits, LVEF 40-45. Atrial fibrillation, new onset initiated on warfarin on digoxin and cardizem for rate control Continue rate controlling agents and oral anticoagulation for atrial fibrillation that persists. Once discharged, patient will follow up with Dr Larsen Sep.05 at 220p. Subjective Date of service: 08/31/18 Interval history: Patient has no cardiac complaints. Afib with a well controlled ventricular rate on telemetry. Objective Vital Signs Temp Pulse Pulse Resp Resp BP BP 08/31/18 08:16 08/31/18 08:09 89 20 08/31/18 07:59 88 20 08/31/18 07:31 97.8 F 77 19 140/89 08/31/18 06:18 20 08/31/18 00:39 20 08/30/18 23:39 73 08/30/18 23:36 97.2 F L 77 20 133/74 08/30/18 22:09 66 16 08/30/18 21:56 08/30/18 21:54 63 15 08/30/18 20:55 69 08/30/18 20:04 97.4 F L 76 18 139/77 08/30/18 18:20 69 136/85 08/30/18 17:47 98.2 F 69 20 136/85 08/30/18 12:18 60 123/65 08/30/18 11:54 98.4 F 08/30/18 11:52 60 20 123/65 Pulse Ox 08/31/18 08:16 93 08/31/18 08:09 08/31/18 07:59 08/31/18 07:31 90 08/31/18 06:18 08/31/18 00:39 08/30/18 23:39 88 08/30/18 23:36 79 L 08/30/18 22:09 08/30/18 21:56 93 08/30/18 21:54 08/30/18 20:55 08/30/18 20:04 91 08/30/18 18:20 08/30/18 17:47 91 08/30/18 12:18 08/30/18 11:54 08/30/18 11:52 95 - Physical Examination General: No Apparent Distress HEENT: Positive: PERRL Neck: Positive: trachea midline Cardiac: Positive: irregularly irregular Lungs: Positive: Decreased Breath Sounds Neuro: Positive: Grossly Intact Abdomen: Positive: Soft Extremities: Absent: edema - Labs and Meds Coagulation 08/31/18 Range/Units 05:58 PT 27.2 H (12.2-14.9) Sec. INR 2.48 H (0.87-1.13) CBC 08/31/18 Range/Units 05:58 WBC 5.2 (4.5-11.0) K/mm3 RBC 5.11 H (3.65-5.03) M/mm3 Hgb 15.5 H (11.8-15.2) gm/dl Hct 47.6 H (35.5-45.6) % Plt Count 122 L (140-440) K/mm3 Comprehensive Metabolic Panel 08/31/18 Range/Units 05:58 Sodium 136 L (137-145) mmol/L Potassium 4.5 (3.6-5.0) mmol/L Chloride 95.5 L (98-107) mmol/L Carbon Dioxide 32 H (22-30) mmol/L BUN 34 H (9-20) mg/dL Creatinine 0.9 (0.8-1.5) mg/dL Glucose 427 H (75-100) mg/dL Calcium 8.8 (8.4-10.2) mg/dL
[2018-08-31] MEDS: NEURONTIN PO SCH ×3 (10:55→20:52)
[2018-08-31] MEDS: XANAX PO PRN ×2 (10:58→20:55)
--- NOTE | 2018-08-31 12:38 | Progress Note ---
Assessment and Plan 57 y/o male with ILD and chronic respiratory failure admitted with exacerbation of ILD and chronic respiratory failure. 1. Continue steroids at 40q8. Will need prolonged taper at discharge. 60 daily for 4 days, 40 for 4, 20 for 4, 10 for 4 then stop. 2. Continue daily net negative state as long as BP and renal function allow. 3. Continue supplemental O2. 4. Discharge soon, hopefully in the next 24-46 hours. Per cards send out on lasix and agree with this. (40 daily) Subjective Date of service: 08/31/18 Interval history: No acute events. Down to 3 liters with sats in the low 90's. Objective Vital Signs - 12hr 08/31/18 08/31/18 08/31/18 00:39 06:18 07:31 Temperature 97.8 F Pulse Rate 77 Pulse Rate [ Anterior Bilateral Throughout] Respiratory 20 20 19 Rate Respiratory Rate [Anterior Bilateral Throughout] Blood Pressure 140/89 [Left] O2 Sat by Pulse 90 Oximetry 08/31/18 08/31/18 08/31/18 07:59 08:09 08:16 Temperature Pulse Rate Pulse Rate [ 88 89 Anterior Bilateral Throughout] Respiratory Rate Respiratory 20 20 Rate [Anterior Bilateral Throughout] Blood Pressure [Left] O2 Sat by Pulse 93 Oximetry Constitutional: no acute distress, alert, other (obese) Eyes: non-icteric ENT: oropharynx moist Neck: supple Effort: normal Ascultation: Bilateral: wheezes, rales (dry crackles at the bases) Cardiovascular: irregular rhythm (ir/ir, no mrg) Gastrointestinal: normoactive bowel sounds, soft, non-tender, non-distended Integumentary: normal Extremities: no cyanosis, edema (1+ bilateral LE edema) Neurologic: normal mental status, non-focal exam, pupils equal and round, CN II- XII normal Psychiatric: mood appropriate, affect normal CBC and BMP: 08/31/18 05:58 08/31/18 05:58 ABG, PT/INR, D-dimer: ABG POC ABG pH 7.338 (7.35-7.45) L 08/26/18 16:56 POC ABG pCO2 47.7 (35-45) H 08/26/18 16:56 POC ABG pO2 86 (80-105) 08/26/18 16:56 POC ABG HCO3 25.7 08/26/18 16:56 POC ABG Total CO2 27 08/26/18 16:56 POC ABG O2 Sat 96 08/26/18 16:56 PT/INR, D-dimer PT 27.2 Sec. (12.2-14.9) H 08/31/18 05:58 INR 2.48 (0.87-1.13) H 08/31/18 05:58 D-Dimer 222.80 ng/mlDDU (0-234) 08/26/18 17:54 Abnormal lab findings: Abnormal Labs 08/26/18 08/26/18 08/26/18 16:18 16:18 16:54 RBC 5.36 H Hgb 16.7 H Hct 49.7 H Plt Count 123 L Seg Neuts % (Manual) 90.0 H Lymphocytes % (Manual) 0 L Seg Neutrophils # Man 8.8 H Lymphocytes # (Manual) 0.0 L PT INR POC ABG pH POC ABG pCO2 Sodium 136 L Potassium 5.2 H Chloride 97.8 L Carbon Dioxide BUN 22 H Creatinine Glucose 412 H POC Glucose Direct Bilirubin 0.3 H NT-Pro-B Natriuret Pep 5240 H Total Protein 6.2 L Albumin 3.8 L 08/26/18 08/26/18 08/27/18 16:56 21:14 03:31 RBC Hgb Hct Plt Count Seg Neuts % (Manual) Lymphocytes % (Manual) Seg Neutrophils # Man Lymphocytes # (Manual) PT INR POC ABG pH 7.338 L POC ABG pCO2 47.7 H Sodium 133 L Potassium Chloride 96.3 L Carbon Dioxide BUN 24 H Creatinine 0.7 L Glucose 321 H POC Glucose 337 H Direct Bilirubin NT-Pro-B Natriuret Pep Total Protein Albumin 08/27/18 08/27/18 08/27/18 08:00 11:47 16:24 RBC Hgb Hct Plt Count Seg Neuts % (Manual) Lymphocytes % (Manual) Seg Neutrophils # Man Lymphocytes # (Manual) PT INR POC ABG pH POC ABG pCO2 Sodium Potassium Chloride Carbon Dioxide BUN Creatinine Glucose POC Glucose 267 H 226 H 227 H Direct Bilirubin NT-Pro-B Natriuret Pep Total Protein Albumin 08/27/18 08/28/18 08/28/18 21:19 05:19 05:19 RBC 5.22 H Hgb 15.9 H Hct 48.3 H Plt Count 109 L Seg Neuts % (Manual) 95.0 H Lymphocytes % (Manual) 1.0 L Seg Neutrophils # Man Lymphocytes # (Manual) 0.1 L PT INR POC ABG pH POC ABG pCO2 Sodium 135 L Potassium Chloride 97.4 L Carbon Dioxide BUN 26 H Creatinine 0.6 L Glucose 313 H POC Glucose 345 H Direct Bilirubin NT-Pro-B Natriuret Pep Total Protein Albumin 08/28/18 08/28/18 08/28/18 07:29 11:16 16:10 RBC Hgb Hct Plt Count Seg Neuts % (Manual) Lymphocytes % (Manual) Seg Neutrophils # Man Lymphocytes # (Manual) PT INR POC ABG pH POC ABG pCO2 Sodium Potassium Chloride Carbon Dioxide BUN Creatinine Glucose POC Glucose 264 H 405 H 444 H Direct Bilirubin NT-Pro-B Natriuret Pep Total Protein Albumin 08/28/18 08/28/18 08/29/18 18:00 21:17 05:29 RBC Hgb Hct Plt Count Seg Neuts % (Manual) Lymphocytes % (Manual) Seg Neutrophils # Man Lymphocytes # (Manual) PT 16.1 H INR 1.25 H POC ABG pH POC ABG pCO2 Sodium Potassium Chloride Carbon Dioxide BUN Creatinine Glucose POC Glucose 399 H 315 H Direct Bilirubin NT-Pro-B Natriuret Pep Total Protein Albumin 08/29/18 08/29/18 08/29/18 05:29 05:29 07:53 RBC 5.23 H Hgb 15.9 H Hct 48.4 H Plt Count 125 L Seg Neuts % (Manual) 83.0 H Lymphocytes % (Manual) 9.0 L Seg Neutrophils # Man Lymphocytes # (Manual) 0.6 L PT INR POC ABG pH POC ABG pCO2 Sodium 136 L Potassium Chloride 96.1 L Carbon Dioxide BUN 28 H Creatinine Glucose 377 H POC Glucose 321 H Direct Bilirubin NT-Pro-B Natriuret Pep Total Protein Albumin 08/29/18 08/29/18 08/29/18 11:32 17:30 21:19 RBC Hgb Hct Plt Count Seg Neuts % (Manual) Lymphocytes % (Manual) Seg Neutrophils # Man Lymphocytes # (Manual) PT INR POC ABG pH POC ABG pCO2 Sodium Potassium Chloride Carbon Dioxide BUN Creatinine Glucose POC Glucose 449 H 155 H 385 H Direct Bilirubin NT-Pro-B Natriuret Pep Total Protein Albumin 08/30/18 08/30/18 08/30/18 05:44 05:58 11:53 RBC Hgb Hct Plt Count Seg Neuts % (Manual) Lymphocytes % (Manual) Seg Neutrophils # Man Lymphocytes # (Manual) PT 20.5 H INR 1.71 H POC ABG pH POC ABG pCO2 Sodium Potassium Chloride Carbon Dioxide BUN Creatinine Glucose POC Glucose 329 H 407 H Direct Bilirubin NT-Pro-B Natriuret Pep Total Protein Albumin 08/30/18 08/30/18 08/31/18 17:48 22:24 05:58 RBC Hgb Hct Plt Count Seg Neuts % (Manual) Lymphocytes % (Manual) Seg Neutrophils # Man Lymphocytes # (Manual) PT 27.2 H INR 2.48 H POC ABG pH POC ABG pCO2 Sodium Potassium Chloride Carbon Dioxide BUN Creatinine Glucose POC Glucose 273 H 325 H Direct Bilirubin NT-Pro-B Natriuret Pep Total Protein Albumin 08/31/18 08/31/18 08/31/18 05:58 05:58 06:26 RBC 5.11 H Hgb 15.5 H Hct 47.6 H Plt Count 122 L Seg Neuts % (Manual) Lymphocytes % (Manual) Seg Neutrophils # Man Lymphocytes # (Manual) PT INR POC ABG pH POC ABG pCO2 Sodium 136 L Potassium Chloride 95.5 L Carbon Dioxide 32 H BUN 34 H Creatinine Glucose 427 H POC Glucose 360 H Direct Bilirubin NT-Pro-B Natriuret Pep Total Protein Albumin 08/31/18 10:39 RBC Hgb Hct Plt Count Seg Neuts % (Manual) Lymphocytes % (Manual) Seg Neutrophils # Man Lymphocytes # (Manual) PT INR POC ABG pH POC ABG pCO2 Sodium Potassium Chloride Carbon Dioxide BUN Creatinine Glucose POC Glucose 436 H Direct Bilirubin NT-Pro-B Natriuret Pep Total Protein Albumin
--- NOTE | 2018-08-31 16:54 | Progress Note ---
Assessment and Plan Assessment and plan: Acute on chronic hypoxemic respiratory failure. Continue BiPAP as clinically indicated. Follow-up serial chest x-ray. Etiology multifactorial secondary to COPD, CHF, ILD, OHS/DUANE, severe pulmonary hypertension and cor pulmonale. Acute on chronic systolic heart failure. Echocardiogram from 08/02/2018 revealed EF of 40-45% with global left ventricular systolic function mildly decreased. Patient had evidence of severe pulmonary hypertension. Cardiology following. ILD. Revatio on hold per pulmonary recommendations. COPD exacerbation. Continue bronchodilators and steroid treatment. Cor pulmonale. Consider right heart catheterization Per pulmonary when stable Severe pulmonary hypertension. Ventilation perfusion scan on last admission consistent with COPD, no evidence of chronic thrombo-embolic pulmonary hypertension. New onset Atrial fibrillation with RVR. Continue per cardiology. Continue Cardizem, digoxin and Coumadin. 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 consulted PT Poss dc home in 1-2 days History Interval history: Still has shortness of breath No chest pain generalized weakness Hospitalist Physical - Physical exam Narrative exam: GEN: Not in acute distress, sitting up in bed HEENT: Normocephalic, atraumatic, Neck: supple, No JVD Lungs: Decreased breath sounds bilat, Rhonchi bilat Heart:S1 and S2 regular, no murmurs, rubs or gallop, Abd:soft, non tender, non distended, normal bowel sounds Ext: No edema, no clubbing or cyanosis Neuro: Awake,alert, oriented x 3, No focal signs Psych:Normal mood - Constitutional Vitals: Temp Pulse Resp BP Pulse Ox 98.1 F 60 16 129/67 93 08/31/18 12:11 08/31/18 13:50 08/31/18 12:11 08/31/18 13:50 08/31/18 08:16 General appearance: Present: no acute distress Results - Labs CBC & Chem 7: 08/31/18 05:58 08/31/18 05:58 Labs: Laboratory Last Values WBC 5.2 K/mm3 (4.5-11.0) 08/31/18 05:58 RBC 5.11 M/mm3 (3.65-5.03) H 08/31/18 05:58 Hgb 15.5 gm/dl (11.8-15.2) H 08/31/18 05:58 Hct 47.6 % (35.5-45.6) H 08/31/18 05:58 MCV 93 fl (84-94) 08/31/18 05:58 MCH 30 pg (28-32) 08/31/18 05:58 MCHC 33 % (32-34) 08/31/18 05:58 RDW 14.7 % (13.2-15.2) 08/31/18 05:58 Plt Count 122 K/mm3 (140-440) L 08/31/18 05:58 Add Manual Diff Complete 08/29/18 05:29 Total Counted 100 08/29/18 05:29 Seg Neutrophils % Structural Layout Worker 08/29/18 05:29 Seg Neuts % (Manual) 83.0 % (40.0-70.0) H 08/29/18 05:29 Band Neutrophils % 2.0 % 08/29/18 05:29 Lymphocytes % (Manual) 9.0 % (13.4-35.0) L 08/29/18 05:29 Reactive Lymphs % (Man) 0 % 08/29/18 05:29 Monocytes % (Manual) 6.0 % (0.0-7.3) 08/29/18 05:29 Eosinophils % (Manual) 0 % (0.0-4.3) 08/29/18 05:29 Basophils % (Manual) 0 % (0.0-1.8) 08/29/18 05:29 Metamyelocytes % 0 % 08/29/18 05:29 Myelocytes % 0 % 08/29/18 05:29 Promyelocytes % 0 % 08/29/18 05:29 Blast Cells % 0 % 08/29/18 05:29 Nucleated RBC % Not Reportable 08/29/18 05:29 Seg Neutrophils # Man 6.0 K/mm3 (1.8-7.7) 08/29/18 05:29 Band Neutrophils # 0.1 K/mm3 08/29/18 05:29 Lymphocytes # (Manual) 0.6 K/mm3 (1.2-5.4) L 08/29/18 05:29 Abs React Lymphs (Man) 0.0 K/mm3 08/29/18 05:29 Monocytes # (Manual) 0.4 K/mm3 (0.0-0.8) 08/29/18 05:29 Eosinophils # (Manual) 0.0 K/mm3 (0.0-0.4) 08/29/18 05:29 Basophils # (Manual) 0.0 K/mm3 (0.0-0.1) 08/29/18 05:29 Metamyelocytes # 0.0 K/mm3 08/29/18 05:29 Myelocytes # 0.0 K/mm3 08/29/18 05:29 Promyelocytes # 0.0 K/mm3 08/29/18 05:29 Blast Cells # 0.0 K/mm3 08/29/18 05:29 WBC Morphology Not Reportable 08/29/18 05:29 Hypersegmented Neuts Not Reportable 08/29/18 05:29 Hyposegmented Neuts Not Reportable 08/29/18 05:29 Hypogranular Neuts Not Reportable 08/29/18 05:29 Smudge Cells Not Reportable 08/29/18 05:29 Toxic Granulation Not Reportable 08/29/18 05:29 Toxic Vacuolation Not Reportable 08/29/18 05:29 Dohle Bodies Not Reportable 08/29/18 05:29 Pelger-Huet Anomaly Not Reportable 08/29/18 05:29 Amanda Rods Not Reportable 08/29/18 05:29 Platelet Estimate Consistent w auto 08/29/18 05:29 Clumped Platelets Not Reportable 08/29/18 05:29 Plt Clumps, EDTA Not Reportable 08/29/18 05:29 Large Platelets Not Reportable 08/29/18 05:29 Giant Platelets Not Reportable 08/29/18 05:29 Platelet Satelliting Not Reportable 08/29/18 05:29 Plt Morphology Comment Not Reportable 08/29/18 05:29 RBC Morphology Normal 08/29/18 05:29 Dimorphic RBCs Not Reportable 08/29/18 05:29 Polychromasia Not Reportable 08/29/18 05:29 Hypochromasia Not Reportable 08/29/18 05:29 Poikilocytosis Not Reportable 08/29/18 05:29 Anisocytosis Not Reportable 08/29/18 05:29 Microcytosis Not Reportable 08/29/18 05:29 Macrocytosis Not Reportable 08/29/18 05:29 Spherocytes Not Reportable 08/29/18 05:29 Pappenheimer Bodies Not Reportable 08/29/18 05:29 Sickle Cells Not Reportable 08/29/18 05:29 Target Cells Not Reportable 08/29/18 05:29 Tear Drop Cells Not Reportable 08/29/18 05:29 Ovalocytes Not Reportable 08/29/18 05:29 Helmet Cells Not Reportable 08/29/18 05:29 [place] Bodies Not Reportable 08/29/18 05:29 [place] Rings Not Reportable 08/29/18 05:29 [place] Cells Not Reportable 08/29/18 05:29 Bite Cells Not Reportable 08/29/18 05:29 Crenated Cell Not Reportable 08/29/18 05:29 Elliptocytes Not Reportable 08/29/18 05:29 Acanthocytes (Spur) Not Reportable 08/29/18 05:29 Rouleaux Not Reportable 08/29/18 05:29 Hemoglobin C Crystals Not Reportable 08/29/18 05:29 Schistocytes Not Reportable 08/29/18 05:29 Malaria parasites Not Reportable 08/29/18 05:29 Elias Bodies Not Reportable 08/29/18 05:29 Hem Pathologist Commnt No 08/29/18 05:29 PT 27.2 Sec. (12.2-14.9) H 08/31/18 05:58 INR 2.48 (0.87-1.13) H 08/31/18 05:58 D-Dimer 222.80 ng/mlDDU (0-234) 08/26/18 17:54 POC ABG pH 7.338 (7.35-7.45) L 08/26/18 16:56 POC ABG pCO2 47.7 (35-45) H 08/26/18 16:56 POC ABG pO2 86 (80-105) 08/26/18 16:56 POC ABG HCO3 25.7 08/26/18 16:56 POC ABG Total CO2 27 08/26/18 16:56 POC ABG O2 Sat 96 08/26/18 16:56 POC ABG Base Excess 0 08/26/18 16:56 FiO2 36 % 08/26/18 16:56 Sodium 136 mmol/L (137-145) L 08/31/18 05:58 Potassium 4.5 mmol/L (3.6-5.0) 08/31/18 05:58 Chloride 95.5 mmol/L (98-107) L 08/31/18 05:58 Carbon Dioxide 32 mmol/L (22-30) H 08/31/18 05:58 Anion Gap 13 mmol/L 08/31/18 05:58 BUN 34 mg/dL (9-20) H 08/31/18 05:58 Creatinine 0.9 mg/dL (0.8-1.5) 08/31/18 05:58 Estimated GFR > 60 ml/min 08/31/18 05:58 BUN/Creatinine Ratio 38 % 08/31/18 05:58 Glucose 427 mg/dL (75-100) H 08/31/18 05:58 POC Glucose 358 (70-105) H 08/31/18 16:18 Lactic Acid 1.40 mmol/L (0.7-2.0) 08/26/18 16:54 Calcium 8.8 mg/dL (8.4-10.2) 08/31/18 05:58 Total Bilirubin 0.80 mg/dL (0.1-1.2) 08/26/18 16:54 Direct Bilirubin 0.3 mg/dL (0-0.2) H 08/26/18 16:54 Indirect Bilirubin 0.5 mg/dL 08/26/18 16:54 AST 24 units/L (5-40) 08/26/18 16:54 ALT 54 units/L (7-56) 08/26/18 16:54 Alkaline Phosphatase 76 units/L (35-129) 08/26/18 16:54 NT-Pro-B Natriuret Pep 5240 pg/mL (0-900) H 08/26/18 16:54 Total Protein 6.2 g/dL (6.3-8.2) L 08/26/18 16:54 Albumin 3.8 g/dL (3.9-5) L 08/26/18 16:54 Albumin/Globulin Ratio 1.6 % 08/26/18 16:54 Nutrition/Malnutrition Assess - Dietary Evaluation Nutrition/Malnutrition Findings: Nutrition Notes Start: 08/28/18 14:37 Freq: Status: Active Protocol: Document 08/28/18 14:37 DUTCH (Rec: 08/28/18 14:42 DUTCH [email or web address]) Nutrition Notes Need for Assessment generated from: Education Initial or Follow up Brief Note Pertinent Medications Coumadin Subjective/Other Information Pt screened for DNI education. He has not taken coumadin since 2012. Pt forgot which foods are high in vit K. Receptive to diet education. #1 Nutrition Diagnosis Food and nutrition-related knowledge deficit Etiology has not taken coumadin in 5 yrs As Evidenced by Signs and Symptoms pt unable to verbalize food sources of vit K Nutrition Intervention Teaching Recipient Patient Learning Readiness Good Teaching Methods Discussion Handout Response to Teaching Verbalize understanding Education Handouts Provided Vitamin K and Medications Barriers to Learning No Barriers RD phone number provided Yes Patient aware of follow up options Yes Goal #1 Adhere to low Vit K diet while taking coumadin Anticipated Discharge Needs: CHO-controlled, Low Vitamin K diet Follow-Up By: 09/01/18 Additional Comments F/U: LOS/intakes
[2018-08-31] MEDS: LANOXIN PO SCH (16:58)
[2018-08-31] MEDS ORDERED: COUMADIN PO SCH (17:00)
[2018-08-31] MEDS: LANTUS SUB-Q SCH (23:16)
[2018-09-01] MEDS: CARDIZEM PO SCH ×4 (00:55→17:03)
[2018-09-01] MEDS: NORCO 5/325 PO PRN ×3 (03:00→16:23)
[2018-09-01 05:54] LABS: INR 2.88 (0.87-1.13)
[2018-09-01] MEDS: SOLU-Medrol IV SCH ×2 (06:22→13:42)
[2018-09-01] MEDS: LASIX IV SCH ×2 (06:22→17:03)
[2018-09-01] MEDS: DUONEB *Not for PRN Use IH SCH ×2 (07:45→11:01)
[2018-09-01] MEDS ORDERED: LANTUS SUB-Q SCH (08:00)
[2018-09-01] MEDS: HumaLOG SUB-Q SCH ×3 (08:24→17:48)
[2018-09-01] MEDS: NEURONTIN PO SCH ×2 (08:25→13:42)
--- NOTE | 2018-09-01 09:05 | Progress Note ---
Assessment and Plan 57 y/o male with ILD and chronic respiratory failure admitted with exacerbation of ILD and chronic respiratory failure. No new recs for today. Please see below. No objection to discharge from a pulmonary standpoint. 1. Continue steroids at 40q8. Will need prolonged taper at discharge. 60 daily for 4 days, 40 for 4, 20 for 4, 10 for 4 then stop. 2. Continue daily net negative state as long as BP and renal function allow. 3. Continue supplemental O2. 4. Discharge soon, hopefully in the next 24-46 hours. Per cards send out on lasix and agree with this. (40 daily) Subjective Date of service: 09/01/18 Interval history: No acute events. Remains stable on 3 liters. Objective Vital Signs - 12hr 08/31/18 09/01/18 09/01/18 21:32 01:13 03:00 Temperature 98.2 F 97.5 F L Pulse Rate 66 72 Respiratory 20 20 20 Rate Blood Pressure 127/65 134/76 O2 Sat by Pulse 92 92 Oximetry 09/01/18 09/01/18 05:08 06:16 Temperature 97.5 F L Pulse Rate 56 L 56 L Respiratory 22 Rate Blood Pressure 138/74 O2 Sat by Pulse 91 Oximetry Constitutional: no acute distress, alert, other (obese) Eyes: non-icteric ENT: oropharynx moist Neck: supple Effort: normal Ascultation: Bilateral: wheezes, rales (dry crackles at the bases) Cardiovascular: irregular rhythm (ir/ir, no mrg) Gastrointestinal: normoactive bowel sounds, soft, non-tender, non-distended Integumentary: normal Extremities: no cyanosis, edema (1+ bilateral LE edema) Neurologic: normal mental status, non-focal exam, pupils equal and round, CN II- XII normal Psychiatric: mood appropriate, affect normal CBC and BMP: 08/31/18 05:58 08/31/18 05:58 ABG, PT/INR, D-dimer: ABG POC ABG pH 7.338 (7.35-7.45) L 08/26/18 16:56 POC ABG pCO2 47.7 (35-45) H 08/26/18 16:56 POC ABG pO2 86 (80-105) 08/26/18 16:56 POC ABG HCO3 25.7 08/26/18 16:56 POC ABG Total CO2 27 08/26/18 16:56 POC ABG O2 Sat 96 08/26/18 16:56 PT/INR, D-dimer PT 30.5 Sec. (12.2-14.9) H 09/01/18 05:22 INR 2.88 (0.87-1.13) H 09/01/18 05:22 D-Dimer 222.80 ng/mlDDU (0-234) 08/26/18 17:54 Abnormal lab findings: Abnormal Labs 08/26/18 08/26/18 08/26/18 16:18 16:18 16:54 RBC 5.36 H Hgb 16.7 H Hct 49.7 H Plt Count 123 L Seg Neuts % (Manual) 90.0 H Lymphocytes % (Manual) 0 L Seg Neutrophils # Man 8.8 H Lymphocytes # (Manual) 0.0 L PT INR POC ABG pH POC ABG pCO2 Sodium 136 L Potassium 5.2 H Chloride 97.8 L Carbon Dioxide BUN 22 H Creatinine Glucose 412 H POC Glucose Direct Bilirubin 0.3 H NT-Pro-B Natriuret Pep 5240 H Total Protein 6.2 L Albumin 3.8 L 08/26/18 08/26/18 08/27/18 16:56 21:14 03:31 RBC Hgb Hct Plt Count Seg Neuts % (Manual) Lymphocytes % (Manual) Seg Neutrophils # Man Lymphocytes # (Manual) PT INR POC ABG pH 7.338 L POC ABG pCO2 47.7 H Sodium 133 L Potassium Chloride 96.3 L Carbon Dioxide BUN 24 H Creatinine 0.7 L Glucose 321 H POC Glucose 337 H Direct Bilirubin NT-Pro-B Natriuret Pep Total Protein Albumin 08/27/18 08/27/18 08/27/18 08:00 11:47 16:24 RBC Hgb Hct Plt Count Seg Neuts % (Manual) Lymphocytes % (Manual) Seg Neutrophils # Man Lymphocytes # (Manual) PT INR POC ABG pH POC ABG pCO2 Sodium Potassium Chloride Carbon Dioxide BUN Creatinine Glucose POC Glucose 267 H 226 H 227 H Direct Bilirubin NT-Pro-B Natriuret Pep Total Protein Albumin 08/27/18 08/28/18 08/28/18 21:19 05:19 05:19 RBC 5.22 H Hgb 15.9 H Hct 48.3 H Plt Count 109 L Seg Neuts % (Manual) 95.0 H Lymphocytes % (Manual) 1.0 L Seg Neutrophils # Man Lymphocytes # (Manual) 0.1 L PT INR POC ABG pH POC ABG pCO2 Sodium 135 L Potassium Chloride 97.4 L Carbon Dioxide BUN 26 H Creatinine 0.6 L Glucose 313 H POC Glucose 345 H Direct Bilirubin NT-Pro-B Natriuret Pep Total Protein Albumin 08/28/18 08/28/18 08/28/18 07:29 11:16 16:10 RBC Hgb Hct Plt Count Seg Neuts % (Manual) Lymphocytes % (Manual) Seg Neutrophils # Man Lymphocytes # (Manual) PT INR POC ABG pH POC ABG pCO2 Sodium Potassium Chloride Carbon Dioxide BUN Creatinine Glucose POC Glucose 264 H 405 H 444 H Direct Bilirubin NT-Pro-B Natriuret Pep Total Protein Albumin 08/28/18 08/28/18 08/29/18 18:00 21:17 05:29 RBC Hgb Hct Plt Count Seg Neuts % (Manual) Lymphocytes % (Manual) Seg Neutrophils # Man Lymphocytes # (Manual) PT 16.1 H INR 1.25 H POC ABG pH POC ABG pCO2 Sodium Potassium Chloride Carbon Dioxide BUN Creatinine Glucose POC Glucose 399 H 315 H Direct Bilirubin NT-Pro-B Natriuret Pep Total Protein Albumin 08/29/18 08/29/18 08/29/18 05:29 05:29 07:53 RBC 5.23 H Hgb 15.9 H Hct 48.4 H Plt Count 125 L Seg Neuts % (Manual) 83.0 H Lymphocytes % (Manual) 9.0 L Seg Neutrophils # Man Lymphocytes # (Manual) 0.6 L PT INR POC ABG pH POC ABG pCO2 Sodium 136 L Potassium Chloride 96.1 L Carbon Dioxide BUN 28 H Creatinine Glucose 377 H POC Glucose 321 H Direct Bilirubin NT-Pro-B Natriuret Pep Total Protein Albumin 08/29/18 08/29/18 08/29/18 11:32 17:30 21:19 RBC Hgb Hct Plt Count Seg Neuts % (Manual) Lymphocytes % (Manual) Seg Neutrophils # Man Lymphocytes # (Manual) PT INR POC ABG pH POC ABG pCO2 Sodium Potassium Chloride Carbon Dioxide BUN Creatinine Glucose POC Glucose 449 H 155 H 385 H Direct Bilirubin NT-Pro-B Natriuret Pep Total Protein Albumin 08/30/18 08/30/18 08/30/18 05:44 05:58 11:53 RBC Hgb Hct Plt Count Seg Neuts % (Manual) Lymphocytes % (Manual) Seg Neutrophils # Man Lymphocytes # (Manual) PT 20.5 H INR 1.71 H POC ABG pH POC ABG pCO2 Sodium Potassium Chloride Carbon Dioxide BUN Creatinine Glucose POC Glucose 329 H 407 H Direct Bilirubin NT-Pro-B Natriuret Pep Total Protein Albumin 08/30/18 08/30/18 08/31/18 17:48 22:24 05:58 RBC Hgb Hct Plt Count Seg Neuts % (Manual) Lymphocytes % (Manual) Seg Neutrophils # Man Lymphocytes # (Manual) PT 27.2 H INR 2.48 H POC ABG pH POC ABG pCO2 Sodium Potassium Chloride Carbon Dioxide BUN Creatinine Glucose POC Glucose 273 H 325 H Direct Bilirubin NT-Pro-B Natriuret Pep Total Protein Albumin 08/31/18 08/31/18 08/31/18 05:58 05:58 06:26 RBC 5.11 H Hgb 15.5 H Hct 47.6 H Plt Count 122 L Seg Neuts % (Manual) Lymphocytes % (Manual) Seg Neutrophils # Man Lymphocytes # (Manual) PT INR POC ABG pH POC ABG pCO2 Sodium 136 L Potassium Chloride 95.5 L Carbon Dioxide 32 H BUN 34 H Creatinine Glucose 427 H POC Glucose 360 H Direct Bilirubin NT-Pro-B Natriuret Pep Total Protein Albumin 08/31/18 08/31/18 08/31/18 10:39 13:13 16:18 RBC Hgb Hct Plt Count Seg Neuts % (Manual) Lymphocytes % (Manual) Seg Neutrophils # Man Lymphocytes # (Manual) PT INR POC ABG pH POC ABG pCO2 Sodium Potassium Chloride Carbon Dioxide BUN Creatinine Glucose POC Glucose 436 H 345 H 358 H Direct Bilirubin NT-Pro-B Natriuret Pep Total Protein Albumin 08/31/18 09/01/18 09/01/18 22:14 05:22 06:14 RBC Hgb Hct Plt Count Seg Neuts % (Manual) Lymphocytes % (Manual) Seg Neutrophils # Man Lymphocytes # (Manual) PT 30.5 H INR 2.88 H POC ABG pH POC ABG pCO2 Sodium Potassium Chloride Carbon Dioxide BUN Creatinine Glucose POC Glucose 395 H 231 H Direct Bilirubin NT-Pro-B Natriuret Pep Total Protein Albumin
--- NOTE | 2018-09-01 09:38 | Progress Note ---
Assessment and Plan Acute respiratory failure Hx of COPD on home oxygen Severe pulmonary hypertension Cor pulmonale Left heart size and systolic function has been within normal limits, LVEF 40-45. Atrial fibrillation, new onset initiated on warfarin on digoxin and cardizem for rate control Continue rate controlling agents and oral anticoagulation for atrial fibrillation that persists. Once discharged, patient will follow up with Dr Valdez Sep.05 at 220p. Subjective Date of service: 09/01/18 Interval history: Patient has no cardiac complaints. Afib with a well controlled ventricular rate on telemetry. Objective Vital Signs Temp Pulse Pulse Resp Resp BP BP 09/01/18 08:46 98.2 F 70 20 134/81 09/01/18 06:16 56 L 09/01/18 05:08 97.5 F L 56 L 22 138/74 09/01/18 03:00 20 09/01/18 01:13 97.5 F L 72 20 134/76 08/31/18 21:32 98.2 F 66 20 127/65 08/31/18 21:00 61 21 08/31/18 20:15 86 08/31/18 17:45 86 146/80 08/31/18 16:58 86 146/80 08/31/18 16:17 98.0 F 79 20 146/80 08/31/18 13:50 60 129/67 08/31/18 12:11 98.1 F 65 16 128/71 Pulse Ox 09/01/18 08:46 92 09/01/18 06:16 09/01/18 05:08 91 09/01/18 03:00 09/01/18 01:13 92 08/31/18 21:32 92 08/31/18 21:00 91 08/31/18 20:15 08/31/18 17:45 08/31/18 16:58 08/31/18 16:17 92 08/31/18 13:50 08/31/18 12:11 - Physical Examination General: No Apparent Distress HEENT: Positive: PERRL Neck: Positive: trachea midline Cardiac: Positive: irregularly irregular Lungs: Positive: Decreased Breath Sounds Neuro: Positive: Grossly Intact Abdomen: Positive: Soft - Labs and Meds Coagulation 09/01/18 Range/Units 05:22 PT 30.5 H (12.2-14.9) Sec. INR 2.88 H (0.87-1.13)
[2018-09-01] MEDS: HABITROL TD SCH (09:42)
[2018-09-01] MEDS: PEPCID PO SCH (09:43)
[2018-09-01] MEDS: SODIUM CHLORIDE FLUSH SYRINGE 10 ML IV SCH (10:00)
[2018-09-01] MEDS: XANAX PO PRN (11:47)
--- NOTE | 2018-09-01 15:44 | Discharge Summary ---
Providers - Providers Date of Admission: 08/26/18 19:58 Date of discharge: 09/01/18 Attending physician: JORDY CRUZ 08/27/18 10:19 Consult to Physician [CONS] Routine Comment: Consulting Provider: JITENDRA BAILEY Physician Instructions: Reason For Exam: resp failure 08/27/18 10:20 Consult to Physician [CONS] Routine Comment: Consulting Provider: MARGIE LARSEN Physician Instructions: Reason For Exam: chf 08/31/18 14:22 Physical Therapy Evaluation and Treat [CONS] Routine Comment: Reason For Exam: Gen weakness Primary care physician: CINDI SON Hospitalization Condition: Fair Hospital course: Patient is 57 YO Male with COPD, Diastolic CHF, Chronic Respiratory Failure on 2L Home Oxygen via NC, hypertension, duiabetes. He presented to ED for evaluation with shortness of breath, cough. Pt seen and evaluated in ED and found to have Acute Respiratory Failure due to CHF Decompensation, as well as COPD exaccerbation. Pt initiated on NIPPV in ED with improvement in symptoms. Pt admitted to IMCU. he was seen by Cardiology and Pulmonology. He improved transfered to [facility] and subsequently dischrged on 09/03/18. Acute on chronic hypoxemic respiratory failure. Etiology multifactorial secondary to COPD, CHF, ILD, OHS/DUANE, severe pulmonary hypertension and cor pulmonale. Acute on chronic systolic heart failure. Echocardiogram from 08/02/2018 revealed EF of 40-45% with global left ventricular systolic function mildly decreased. Patient had evidence of severe pulmonary hypertension. Cardiology followed during this admission ILD. Revatio on hold per pulmonary recommendations. COPD exacerbation. Placed on steroids, bronchodilators. Cor pulmonale. Severe pulmonary hypertension. Ventilation perfusion scan on last admission consistent with COPD, no evidence of chronic thrombo-embolic pulmonary hypertension. New onset Atrial fibrillation with RVR. Continue Cardizem, digoxin and Coumad in. 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 Hyperlipidemia; continue statin Diabetes mellitus type II, still uncontrolled Rodrigotus Total time spent on discharge, 35mins Disposition: [id number]/TX-[id number] HOME UNDER HOME HLTH - Discharge Diagnoses (1) Acute on chronic systolic (congestive) heart failure Status: Acute (2) COPD exacerbation Status: Acute (3) Cor pulmonale Status: Acute (4) New onset atrial fibrillation Status: Acute (5) Acute and chronic respiratory failure ([id number]) Status: Acute Qualifiers: Respiratory failure complication: hypoxia Qualified Code(s): J96.21 - Acute and chronic respiratory failure with hypoxia (6) Diabetes Status: Chronic (7) Hypertension Status: Chronic Qualifiers: Hypertension type: essential hypertension Qualified Code(s): I10 - Essential (primary) hypertension Core Measure Documentation - Palliative Care Palliative Care/ Comfort Measures: Not Applicable - Core Measures Any of the following diagnoses?: heart failure - Heart Failure Discharge Requirements FLORENCIO/ARB for LVSD if EF <40%: Not Applicable Beta susanne at discharge: No Reason for no beta susanne on DC: COPD Exam - Constitutional Vitals: Temp Pulse Resp BP Pulse Ox 97.4 F L 83 20 139/82 91 09/01/18 11:33 09/01/18 11:32 09/01/18 11:32 09/01/18 11:32 09/01/18 11:32 Plan Activity: advance as tolerated Diet: low fat, low cholesterol, low salt, diabetic Additional Instructions: 1.Follow up with PCP in [address] Larsen, Cardiology on 09/05/18. 3.Follow up With Dr. Bailey Pul in 3-5 days. 4.Keep Oxygen continuous at 3l/min. 5.Check INR on Tuesday09/05/[address] Larsen Follow up with: CINDI SON MD [Primary Care Provider] - 7 Days Forms: Warfarin Discharge Instruction Prescriptions: Digoxin [Lanoxin] 0.25 mg PO DAILY@1700 #30 tablet dilTIAZem [Cardizem] 60 mg PO Q6HR #120 tablet Furosemide [Lasix TAB] 40 mg PO QDAY #30 tablet Insulin Glargine,Hum.rec.anlog [Lantus] 35 unit SQ BID #1 vial predniSONE [Deltasone] 60 mg PO QDAY 4 Days tab predniSONE [Deltasone] 40 mg PO DAILY 4 Days tablet predniSONE [Deltasone] 20 mg PO QDAY 4 Days tab predniSONE [Deltasone] 10 mg PO DAILY 4 Days tablet Warfarin [Coumadin] 5 mg PO DAILY@1700 #30 tablet
[2018-09-01] MEDS: LANOXIN PO SCH (16:22)
[2018-09-01] MEDS ORDERED: COUMADIN PO SCH (17:00)
[2018-09-03 11:32] VITALS: BP 139/82
== END 2018-09-01 18:20 | disposition home health service (06) | DRG 291 ==
LOC: ED 15:45 → IMCU 19:58 → 4A 08-29 15:44
PROVIDERS: ADMIT Internal Medicine; ATTEND Internal Medicine
PROC: 4A033R1 Measurement of Arterial Saturation, Peripheral, Percutaneous Approach (ICD-10-PCS; principal; 2018-08-26)
PROC: 5A09357 Assistance with Respiratory Ventilation, Less than 24 Consecutive Hours, Continuous Positive Airway Pressure (ICD-10-PCS; 2018-08-26)
DX: I11.0 Hypertensive heart disease with heart failure (principal); J96.21 Acute and chronic respiratory failure with hypoxia; J96.22 Acute and chronic respiratory failure with hypercapnia; J44.1 Chronic obstructive pulmonary disease with (acute) exacerbation; I48.91 Unspecified atrial fibrillation; E11.9 Type 2 diabetes mellitus without complications; I50.43 Acute on chronic combined systolic (congestive) and diastolic (congestive) heart failure; M19.90 Unspecified osteoarthritis, unspecified site; E87.5 Hyperkalemia; I27.29 Other secondary pulmonary hypertension; F17.210 Nicotine dependence, cigarettes, uncomplicated; J84.9 Interstitial pulmonary disease, unspecified; E78.5 Hyperlipidemia, unspecified; Z99.81 Dependence on supplemental oxygen; E66.2 Morbid (severe) obesity with alveolar hypoventilation; Z68.36 Body mass index [BMI] 36.0-36.9, adult; Z86.718 Personal history of other venous thrombosis and embolism; Z90.49 Acquired absence of other specified parts of digestive tract; Z89.432 Acquired absence of left foot; Z82.49 Family history of ischemic heart disease and other diseases of the circulatory system; Z83.3 Family history of diabetes mellitus; Z79.899 Other long term (current) drug therapy; Z79.4 Long term (current) use of insulin; Z87.442 Personal history of urinary calculi; Z71.6 Tobacco abuse counseling
CPT/HCPCS: 36415; 71045; 80048; 80076; 82140; 82803; 82962; 83880; 85007; 85025; 85027; 85379; 85610; 90686; 93005; 93010; 94640; 94760; G0378; A9270-GY; J0692; J1160; J1650; J1815; J1940; J2270; J2920; J2930; J3475

== ENCOUNTER 2018-11-03 14:35 | Inpatient (IN) | payer MEDICAID ==
[2018-11-03] MEDS ORDERED: PERCOCET 5/325 PO ONE (15:11)
--- NOTE | 2018-11-03 15:19 | Emergency Department Report ---
HPI - General Chief Complaint: Extremity Injury, Lower Time Seen by Provider: 11/03/18 14:51 - HPI HPI: Room 6 The patient is a 57-year-old male presenting with a chief complaint of lower extremity pain. The patient states 2 weeks ago he began having pain in both lower extremities. The patient states at the same time the wound was left lower extremity from his previous operation 2013 has began to open up and have yellowish discharge. Patient gives his pain a score of 9/10 Location: Bilateral lower extremity Duration: [See above] Quality: [See above] Severity: [See above] Modifying factors: [see above] Context: [see above] Mode of transportation: [not driving] ED Past Medical Hx - Past Medical History Previous Medical History?: Yes Hx Hypertension: Yes Hx Diabetes: Yes Hx Deep Vein Thrombosis: Yes (LEFT LEG) Hx Arthritis: Yes Hx Kidney Stones: Yes Hx COPD: Yes Additional medical history: Cholesterol - Surgical History Past Surgical History?: Yes Hx Cholecystectomy: Yes Additional Surgical History: L. leg bypass, L. leg stents, Hernia. 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 - Family History Family history: no significant - Social History Smoking Status: Never Smoker Substance Use Type: None - Medications Home Medications: Home Medications Medication Instructions Recorded Confirmed Last Taken Type ALPRAZolam [Xanax TAB] 0.5 mg PO TID PRN #10 tablet 11/17/17 08/26/18 Unknown Rx AtorvaSTATin [Lipitor] 40 mg PO QHS #30 11/17/17 08/26/18 11/14/17 Rx metFORMIN [Glucophage] 500 mg PO BID tablet 11/17/17 08/26/18 Unknown Rx Gabapentin [Neurontin] 800 mg PO TID 08/02/18 08/26/18 Unknown History Famotidine [Pepcid] 20 mg PO BID #60 tablet 08/15/18 08/26/18 Unknown Rx HYDROcodone/ACETAMINOPHEN 1 each PO Q6H #10 tablet 08/15/18 08/26/18 Unknown Rx [Hydrocodone-Acetamin 5-325 mg] Sildenafil [Revatio] 20 mg PO TID 30 Days tablet 08/15/18 08/26/18 Unknown Rx Sulfamethoxazole/Trimethoprim 1 each PO DAILY 30 Days tablet 08/15/18 08/26/18 Unknown Rx [Bactrim DS TAB] Digoxin [Lanoxin] 0.25 mg PO DAILY@1700 #30 tablet 09/01/18 Unknown Rx Furosemide [Lasix TAB] 40 mg PO QDAY #30 tablet 09/01/18 Unknown Rx Insulin Glargine,Hum.rec.anlog 35 unit SQ BID #1 vial 09/01/18 Unknown Rx [Lantus] Warfarin [Coumadin] 5 mg PO DAILY@1700 #30 tablet 09/01/18 Unknown Rx dilTIAZem [Cardizem] 60 mg PO Q6HR #120 tablet 09/01/18 Unknown Rx predniSONE [Deltasone] 10 mg PO DAILY 4 Days tablet 09/01/18 Unknown Rx predniSONE [Deltasone] 20 mg PO QDAY 4 Days tab 09/01/18 Unknown Rx predniSONE [Deltasone] 40 mg PO DAILY 4 Days tablet 09/01/18 Unknown Rx predniSONE [Deltasone] 60 mg PO QDAY 4 Days tab 09/01/18 Unknown Rx ED Review of Systems ROS: Stated complaint: BILAT LEG PAIN Other details as noted in HPI Constitutional: denies: fever Eyes: denies: eye pain ENT: denies: throat pain Respiratory: no symptoms reported Cardiovascular: denies: chest pain Endocrine: no symptoms reported Gastrointestinal: denies: abdominal pain Genitourinary: denies: dysuria Musculoskeletal: back pain Skin: lesions Physical Exam - Physical Exam Vital Signs: Vital Signs 11/03/18 14:49 Temperature 98.4 F Pulse Rate 67 Respiratory 14 Rate Blood Pressure 119/63 [Left] O2 Sat by Pulse 88 Oximetry Physical Exam: GENERAL: The patient is well-developed well-nourished male lying on stretcher not appearing to be in acute distress. [] HEENT: Normocephalic. Atraumatic. Extraocular motions are intact. Patient has moist mucous membranes. NECK: Supple. Trachea midline CHEST/LUNGS: Clear to auscultation. There is no respiratory distress noted. HEART/CARDIOVASCULAR: Regular. There is no tachycardia. There is no gallop rub or murmur. ABDOMEN: Abdomen is soft, nontender. Patient has normal bowel sounds. There is no abdominal distention. SKIN: There is a large wound to the anterior left thigh. Approximately 15 cm in length and 7 cm in width with some granulation tissue and yellow discharge. There is no edema. There is no diaphoresis. NEURO: The patient is awake, alert, and oriented. The patient is cooperative. The patient has normal speech MUSCULOSKELETAL: There is no evidence of acute injury. ED Course Vital Signs 11/03/18 14:49 Temperature 98.4 F Pulse Rate 67 Respiratory 14 Rate Blood Pressure 119/63 [Left] O2 Sat by Pulse 88 Oximetry - Consultations Consultation #1: 11/03/18 17:[address] Finn ED Medical Decision Making - Lab Data Result diagrams: 11/03/18 15:35 11/03/18 15:35 Laboratory Tests 11/03/18 11/03/18 15:35 15:35 WBC 7.4 RBC 4.62 Hgb 12.9 Hct 41.1 MCV 89 MCH 28 MCHC 32 RDW 19.0 H Plt Count 323 Lymph % (Auto) 8.7 L Randolph % (Auto) 4.8 Eos % (Auto) 0.9 Baso % (Auto) 1.1 Lymph # 0.6 L Randolph # 0.4 Eos # 0.1 Baso # 0.1 Seg Neutrophils % 84.5 H Seg Neutrophils # 6.3 Sodium 141 Potassium 4.6 Chloride 106.3 Carbon Dioxide 25 Anion Gap 14 BUN 17 Creatinine 0.9 Estimated GFR > 60 BUN/Creatinine Ratio 19 Glucose 174 H Calcium 9.0 - Differential Diagnosis peripheral vascular disease Critical care attestation.: If time is entered above; I have spent that time in minutes in the direct care of this critically ill patient, excluding procedure time. ED Disposition Clinical Impression: PAD (peripheral artery disease), Unspecified open wound, left thigh, initial encounter Disposition: DC-09 OP ADMIT IP TO THIS HOSP Is pt being admited?: Yes Does the pt Need Aspirin: No Condition: Fair Referrals: PRIMARY CARE, [Referring] - 3-5 Days Time of Disposition: 17:04 (Hospitalist paged (Dr Abbott))
[2018-11-03 15:51] LABS: Basophils # (Auto) 0.1 K/mm3 (0.0-0.1); Basophils % (Auto) 1.1 % (0.0-1.8); Eosinophils # (Auto) 0.1 K/mm3 (0.0-0.4); Eosinophils % (Auto) 0.9 % (0.0-4.3); Hematocrit 41.1 % (35.5-45.6); Hemoglobin 12.9 gm/dl (11.8-15.2); Lymphocytes # (Auto) 0.6 K/mm3 (1.2-5.4); Lymphocytes % (Auto) 8.7 % (13.4-35.0); Mean Corpuscular HGB Conc 32 % (32-34); Mean Corpuscular Volume 89 fl (84-94); Monocytes # (Auto) 0.4 K/mm3 (0.0-0.8); Monocytes % (Auto) 4.8 % (0.0-7.3); Platelet Count 323 K/mm3 (140-440); Red Blood Count 4.62 M/mm3 (3.65-5.03)
[2018-11-03 16:06] LABS: BUN/Creatinine Ratio 19; Blood Urea Nitrogen 17 mg/dL (9-20); Hemolysis Index 3
--- NOTE | 2018-11-03 16:09 | Consultation ---
History of Present Illness - Reason for Consult Consult date: 11/03/18 Lower extremity pain, ulcer right foot, left thigh - History of Present Illness 57-year-old male with multiple medical issues including congestive heart failure and peripheral vascular disease status post surgeries who reports that one month ago he had a left thigh region that became discolored, turned black, and then created a large area of granulation tissue. In addition, he reports that he has numbness, and pins and needles pain with electrical pain that radiates from his back down to his feet and involves both of his feet. He reports that this started 2 weeks ago. His feet are also tender to touch which sounds like his neuropathy, according to the patient. He also has ulceration over the dorsum of his right foot which occured 1 month ago. In 2012 the patient had a left femoral popliteal reverse saphenous vein bypass graft which thrombosis, endovascular rescue was attempted which failed, and patient had open thrombectomy with endovascular reconstruction of his superficial femoral artery and ligation of his venous bypass with common femoral artery bovine patch angioplasty. He subsequently had tibial interventions that were endovascularly performed with placement of a stent in the posterior tibial artery. During this time, he had incision and drainage of the left thigh seroma and left TMA. Past History Past Medical History: COPD (w/ 2L home oxygen), diabetes, DVT, heart failure, hypertension, hyperlipidemia, PVD, other (OA) Past Surgical History: cholecystectomy, Other (left leg vein bypass/stents/TMA/I&D thigh seroma) Social history: single. denies: smoking, alcohol abuse, prescription drug abuse Family history: diabetes, hypertension Medications and Allergies Allergies Allergy/AdvReac Type Severity Reaction Status Date / Time ketorolac tromethamine Allergy Vomiting Verified 01/31/17 05:38 [From Toradol] tramadol Allergy Vomiting Verified 01/31/17 05:38 Home Medications Medication Instructions Recorded Confirmed Last Taken Type ALPRAZolam [Xanax TAB] 0.5 mg PO TID PRN #10 tablet 11/17/17 08/26/18 Unknown Rx AtorvaSTATin [Lipitor] 40 mg PO QHS #30 11/17/17 08/26/18 11/14/17 Rx metFORMIN [Glucophage] 500 mg PO BID tablet 11/17/17 08/26/18 Unknown Rx Gabapentin [Neurontin] 800 mg PO TID 08/02/18 08/26/18 Unknown History Famotidine [Pepcid] 20 mg PO BID #60 tablet 08/15/18 08/26/18 Unknown Rx HYDROcodone/ACETAMINOPHEN 1 each PO Q6H #10 tablet 08/15/18 08/26/18 Unknown Rx [Hydrocodone-Acetamin 5-325 mg] Sildenafil [Revatio] 20 mg PO TID 30 Days tablet 08/15/18 08/26/18 Unknown Rx Sulfamethoxazole/Trimethoprim 1 each PO DAILY 30 Days tablet 08/15/18 08/26/18 Unknown Rx [Bactrim DS TAB] Digoxin [Lanoxin] 0.25 mg PO DAILY@1700 #30 tablet 09/01/18 Unknown Rx Furosemide [Lasix TAB] 40 mg PO QDAY #30 tablet 09/01/18 Unknown Rx Insulin Glargine,Hum.rec.anlog 35 unit SQ BID #1 vial 09/01/18 Unknown Rx [Lantus] Warfarin [Coumadin] 5 mg PO DAILY@1700 #30 tablet 09/01/18 Unknown Rx dilTIAZem [Cardizem] 60 mg PO Q6HR #120 tablet 09/01/18 Unknown Rx predniSONE [Deltasone] 10 mg PO DAILY 4 Days tablet 09/01/18 Unknown Rx predniSONE [Deltasone] 20 mg PO QDAY 4 Days tab 09/01/18 Unknown Rx predniSONE [Deltasone] 40 mg PO DAILY 4 Days tablet 09/01/18 Unknown Rx predniSONE [Deltasone] 60 mg PO QDAY 4 Days tab 09/01/18 Unknown Rx Review of Systems All systems: negative (see HPI) Exam - Constitutional Vitals: Temp Pulse Resp BP Pulse Ox 98.4 F 67 14 119/63 88 11/03/18 14:49 11/03/18 14:49 11/03/18 14:49 11/03/18 14:49 11/03/18 14:49 General appearance: Present: mild distress (bilateral lower extremity pain, numbness, "pins and needle") - EENT Eyes: Present: EOM intact ENT: hearing intact - Neck Neck: Present: supple - Respiratory Respiratory effort: normal - Extremities Extremities: abnormal (see HPI) Peripheral Pulses: abnormal (nonpalpable pedal pulses) - Psychiatric Psychiatric: appropriate mood/affect, cooperative Results - Labs CBC & Chem 7: 11/03/18 15:35 11/03/18 15:35 Labs: Abnormal lab results 11/03/18 11/03/18 Range/Units 15:35 15:35 RDW 19.0 H (13.2-15.2) % Lymph % (Auto) 8.7 L (13.4-35.0) % Lymph # 0.6 L (1.2-5.4) K/mm3 Seg Neutrophils % 84.5 H (40.0-70.0) % Glucose 174 H (75-100) mg/dL - Imaging and Cardiology Venous US: image reviewed (arterial) Assessment and Plan 57-year-old male with multiple medical problems and history of peripheral vascular disease with pain of the bilateral lower extremities with numbness of the bilateral lower extremities. There is definitely a component of low back pain/sciatica with the patient's lower extremity pain as his pain has a pins and needles description and is associated with numbness. I suspect this is neurologic and does not represent rest pain. The patient has a left deep thigh ulceration which spontaneously occurred 1 month ago per patient. This may be the area which previously had an incision and drainage associated with it. Although I am not sure why this originally occurred, arterial Doppler was performed which demonstrated a stenotic profunda femoral artery on the left side with a chronic left superficial femoral artery occlusion. There is likely an ischemic component to the ulceration which is why the margins are so indurated. The patient also has nonpalpable pedal pulses on the right side with superficial femoral artery chronic occlusion and critical limb ischemia with ulceration of the right dorsum of the foot. Recommend admission to the hospital with revascularization of the left profunda femoral artery, wound care consult, and wound VAC placement by wound care once revascularization is complete. Patient will then need to be scheduled for a later intervention of the right superficial femoral artery to salvage the right lower extremity. Patient is on coumadin which will need to be held for procedure.
[2018-11-03 17:24] LABS: INR 0.96 (0.87-1.13)
[2018-11-03 17:25] LABS: Partial Thromboplastin Time 29.2 Sec. (24.2-36.6)
[2018-11-03] MEDS ORDERED: TYLENOL PO PRN (17:31)
[2018-11-03] MEDS ORDERED: SODIUM CHLORIDE FLUSH SYRINGE 10 ML IV PRN (17:31)
[2018-11-03] MEDS ORDERED: ZOFRAN IV PRN (17:31)
--- NOTE | 2018-11-03 17:31 | History and Physical Report ---
History of Present Illness Chief complaint: My legs hurt and its infected History of present illness: 57 YO Male with COPD, Diastolic CHF, Chronic Respiratory Failure on 2L Home Oxygen via NC, HTN, DM, OA, HLD, DVT not current on anticoagulation, PVD presents to ED for evaluation. Pt states that he has experienced Leg pain over the past 2 weeks, with worsening symptoms over the same time frame. Pt also reports Left thigh ulcer with purulent drainage, and redness to surrounding area as well as pain to the affected area. Pt states that his left thigh pain is 9/10, constant, worse with movement. Pt acknowledges rest pain. EMS notified and upon arrival the patient was found to be in distress and transported to [facility] ED. Pt seen and evaluated in ED and found to have Left thigh Cellulitis, as well as PVD with Lower limb Ischemia. Vascular/IR Service consulted in ED. Pending surgical intervention in AM. Prior admission on 08/26/18 reviewed. All listed medication reconciled at time of admission. Pt denies fever, chills, palpitations, NVD, Trauma, Hemoptysis, BRBPR, Productive Cough, or recent ill contacts. Past History Past Medical History: COPD (w/ 2L home oxygen), diabetes, DVT, heart failure, hypertension, hyperlipidemia, PVD, other (OA) Past Surgical History: cholecystectomy, Other (left leg vein bypass/stents/TMA/I&D thigh seroma) Social history: single. denies: smoking, alcohol abuse, prescription drug abuse Family history: diabetes, hypertension Medications and Allergies Allergies Allergy/AdvReac Type Severity Reaction Status Date / Time ketorolac tromethamine Allergy Vomiting Verified 01/31/17 05:38 [From Toradol] tramadol Allergy Vomiting Verified 01/31/17 05:38 Home Medications Medication Instructions Recorded Confirmed Last Taken Type ALPRAZolam [Xanax TAB] 0.5 mg PO TID PRN #10 tablet 11/17/17 08/26/18 Unknown Rx AtorvaSTATin [Lipitor] 40 mg PO QHS #30 11/17/17 08/26/18 11/14/17 Rx metFORMIN [Glucophage] 500 mg PO BID tablet 11/17/17 08/26/18 Unknown Rx Gabapentin [Neurontin] 800 mg PO TID 08/02/18 08/26/18 Unknown History Famotidine [Pepcid] 20 mg PO BID #60 tablet 08/15/18 08/26/18 Unknown Rx HYDROcodone/ACETAMINOPHEN 1 each PO Q6H #10 tablet 08/15/18 08/26/18 Unknown Rx [Hydrocodone-Acetamin 5-325 mg] Sildenafil [Revatio] 20 mg PO TID 30 Days tablet 08/15/18 08/26/18 Unknown Rx Sulfamethoxazole/Trimethoprim 1 each PO DAILY 30 Days tablet 08/15/18 08/26/18 Unknown Rx [Bactrim DS TAB] Digoxin [Lanoxin] 0.25 mg PO DAILY@1700 #30 tablet 09/01/18 Unknown Rx Furosemide [Lasix TAB] 40 mg PO QDAY #30 tablet 09/01/18 Unknown Rx Insulin Glargine,Hum.rec.anlog 35 unit SQ BID #1 vial 09/01/18 Unknown Rx [Lantus] Warfarin [Coumadin] 5 mg PO DAILY@1700 #30 tablet 09/01/18 Unknown Rx dilTIAZem [Cardizem] 60 mg PO Q6HR #120 tablet 09/01/18 Unknown Rx predniSONE [Deltasone] 10 mg PO DAILY 4 Days tablet 09/01/18 Unknown Rx predniSONE [Deltasone] 20 mg PO QDAY 4 Days tab 09/01/18 Unknown Rx predniSONE [Deltasone] 40 mg PO DAILY 4 Days tablet 09/01/18 Unknown Rx predniSONE [Deltasone] 60 mg PO QDAY 4 Days tab 09/01/18 Unknown Rx Review of Systems Constitutional: no weight loss, no weight gain, no fever, no chills Ears, nose, mouth and throat: no ear pain, no ear discharge, no tinnitis, no decreased hearing, no nose pain Cardiovascular: no chest pain, no orthopnea, no palpitations, no rapid/irregular heart beat Respiratory: no cough, no cough with sputum, no excessive sputum, no hemoptysis Gastrointestinal: no nausea, no vomiting, no diarrhea Genitourinary Male: no hematuria, no flank pain, no discharge, no urinary frequency Rectal: no pain, no incontinence, no bleeding Musculoskeletal: no neck stiffness, no neck pain, no shooting arm pain, no arm numbness/tingling, no low back pain Integumentary: redness, sores, lesions, no rash, no jaundice, no dryness Neurological: no head injury, no transient paralysis, no paralysis, no weakness, no parathesias, no numbness, no tingling Psychiatric: no anxiety, no memory loss, no change in sleep habits, no sleep disturbances, no insomnia, no hypersomnia Endocrine: no cold intolerance, no heat intolerance, no polyphagia, no excessive thirst, no polydipsia, no polyuria Hematologic/Lymphatic: no easy bruising, no easy bleeding, no lymphadenopathy, no lymphedema Allergic/Immunologic: no urticaria, no allergic rhinitis, no persistent infections, no anaphylaxis Exam - Constitutional Vitals: Temp Pulse Resp BP Pulse Ox 98.4 F 67 14 119/63 88 11/03/18 14:49 11/03/18 14:49 11/03/18 14:49 11/03/18 14:49 11/03/18 14:49 General appearance: Present: mild distress - EENT Eyes: Present: PERRL ENT: hearing intact, clear oral mucosa - Neck Neck: Present: supple, normal ROM - Respiratory Respiratory effort: normal Respiratory: bilateral: CTA - Cardiovascular Heart Sounds: Present: S1 & S2. Absent: rub, click - Extremities Extremity abnormal: cyanosis, erythema, pulses diminished Peripheral Pulses: abnormal - Abdominal General gastrointestinal: Present: soft, non-tender, non-distended, normal bowel sounds Male genitourinary: Present: normal - Integumentary Integumentary: Present: clear, dry - Musculoskeletal Musculoskeletal: generalized weakness - Psychiatric Psychiatric: no appropriate mood/affect, no intact judgment & insight, no memory intact - Neurologic Neurologic: no gait normal Results - Labs CBC & Chem 7: 11/03/18 15:35 11/03/18 15:35 Labs: Abnormal lab results 11/03/18 11/03/18 Range/Units 15:35 15:35 RDW 19.0 H (13.2-15.2) % Lymph % (Auto) 8.7 L (13.4-35.0) % Lymph # 0.6 L (1.2-5.4) K/mm3 Seg Neutrophils % 84.5 H (40.0-70.0) % Glucose 174 H (75-100) mg/dL Assessment and Plan - Patient Problems (1) PVD (peripheral vascular disease) Current Visit: Yes Status: Acute Plan to address problem: Vascular surgery consulted in ED, pending revascularization. supportive care. (2) Cellulitis of left thigh Current Visit: Yes Status: Acute Plan to address problem: IV antibiotics, CBC, CMP, wound care consulted, pain control. (3) Limb ischemia Current Visit: Yes Status: Acute Plan to address problem: Vascular surgery consulted, pending revascularization intervention. (4) Diabetes Current Visit: No Status: Chronic Plan to address problem: ADA diet, insulin, accu check (5) Hypertension Current Visit: No Status: Chronic Qualifiers: Hypertension type: essential hypertension Qualified Code(s): I10 - Essential (primary) hypertension Plan to address problem: Monitor BP q shift, (6) DVT (deep venous thrombosis) Current Visit: Yes Status: Acute Plan to address problem: Therapeutic Anticoagulation with lovenox for DVT. (7) DVT prophylaxis Current Visit: No Status: Acute Plan to address problem: SCD to BLE while in bed, Therapeutic anticoagulation with coumadin
[2018-11-03] MEDS ORDERED: VANCOMYCIN/NS 1 GM/250 ML 1 GM/250 ML BAG IV ONE (17:45)
[2018-11-03] MEDS ORDERED: VANCOMYCIN PHARMACY TO DOSE IV SCH (18:00)
--- NOTE | 2018-11-03 18:14 | Vascular Lab Report ---
PROCEDURE: VL ARTERIAL DUPLEX LE BILAT TECHNIQUE: Longitudinal and transverse grayscale, color, and Doppler sonographic images of the bilat eral lower extremities was performed HISTORY: pvd with pain left thigh wound COMPARISONS: Lower extremity arterial duplex 05/24/2013, CTA runoff 03/02/2016 not currently available for review FINDINGS: Vessel velocity (cm/s) Right SOCIAL SERVICE COORDINATOR proximal 171 SOCIAL SERVICE COORDINATOR distal 59 Proximal SFA 0 Mid SFA 0 Distal SFA 0 DFA 239, greater than 75% stenosis Popliteal 44 reconstituted INDUSTRIAL MAINTENANCE INSTRUCTOR 19 monophasic CANDDIO 33 monophasic Left SOCIAL SERVICE COORDINATOR proximal 50 SOCIAL SERVICE COORDINATOR distal 20 Proximal SFA 0 Mid SFA 0 Distal SFA unable to visualize DFA 378, greater than 75% stenosis Popliteal 22 Distal popliteal 0 INDUSTRIAL MAINTENANCE INSTRUCTOR 24 CANDIDO occluded The left superficial femoral artery stent appears to be occluded with greater than 75% stenosis in th e left profunda femoral artery. The left distal popliteal artery appears occluded. The left distal an terior tibial artery appears occluded. IMPRESSION: Significant bilateral lower extremity disease involving all segments. Consider CTA runoffs to assess for treatable lesion. This document is electronically signed by Elsa Lebron MD., November 03 2018 06:12:11 PM ET
[2018-11-03] MEDS ORDERED: CARDIZEM ONE (18:37)
[2018-11-03] MEDS: NORCO 5/325 PO SCH (19:15)
[2018-11-03] MEDS: CARDIZEM PO SCH (19:15)
[2018-11-03] MEDS ORDERED: VANCOMYCIN 2,000 MG in NACL 0.9% 500 ML 500 ML IV ONE (19:30)
[2018-11-03] MEDS ORDERED: D50W (25GM) Syringe IV PRN (19:31)
[2018-11-03] MEDS: DILAUDID IV PRN (22:20)
[2018-11-03] MEDS: LOVENOX SUB-Q SCH (22:23)
[2018-11-03] MEDS: PEPCID PO SCH (22:24)
[2018-11-03] MEDS: XANAX PO PRN (22:24)
[2018-11-03] MEDS: NEURONTIN PO SCH (22:31)
[2018-11-03] MEDS: HumaLOG SUB-Q SCH ×2 (22:32→22:44)
[2018-11-04] MEDS: CARDIZEM PO SCH ×4 (00:46→19:02)
[2018-11-04] MEDS: NORCO 5/325 PO SCH ×4 (00:47→19:07)
[2018-11-04] MEDS: SODIUM CHLORIDE FLUSH SYRINGE 10 ML IV SCH ×3 (00:49→22:30)
[2018-11-04] MEDS: DILAUDID IV PRN ×4 (05:06→22:31)
[2018-11-04 05:57] LABS: Basophils # (Auto) 0.1 K/mm3 (0.0-0.1); Eosinophils # (Auto) 0.2 K/mm3 (0.0-0.4); Eosinophils % (Auto) 2.8 % (0.0-4.3); Hematocrit 37.4 % (35.5-45.6); Hemoglobin 11.9 gm/dl (11.8-15.2); Lymphocytes % (Auto) 12.7 % (13.4-35.0); Mean Corpuscular HGB Conc 32 % (32-34); Mean Corpuscular Volume 88 fl (84-94); Monocytes # (Auto) 0.6 K/mm3 (0.0-0.8); Platelet Count 293 K/mm3 (140-440); Red Blood Count 4.24 M/mm3 (3.65-5.03); Red Cell Distribution Width 19.4 % (13.2-15.2)
[2018-11-04 06:10] LABS: BUN/Creatinine Ratio 21; Blood Urea Nitrogen 15 mg/dL (9-20); Calcium 8.2 mg/dL (8.4-10.2); Hemolysis Index 1
[2018-11-04] MEDS: HumaLOG SUB-Q SCH ×4 (09:21→22:29)
[2018-11-04] MEDS: NEURONTIN PO SCH ×3 (09:22→20:50)
--- NOTE | 2018-11-04 09:29 | Progress Note ---
Assessment and Plan Assessment and plan: 57-year-old man who presents with bilateral lower extremity pain 2 weeks. Is complaining of purulent draining wounds. 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 fib, tobacco dependence,, hyperlipidemia, peripheral arterial disease status post bypass and stents in his legs, partial left foot amputation arterial duplex of lower extremity shows significant bilateral lower extremity disease involving all segments, Diagnosis Lower extremity arterial disease with critical limb ischemia Hypertension Diabetes ILD COPD A. fib Tobacco dependence Hyperlipidemia Systolic CHF EF 40% Hypercoagulable states Plan Vascular surgery consults appreciated, the patient is going to go for revascularization of left profunda femoral artery, he will need wound care and wound VAC placement, the patient would then need a lead test scheduled right superficial femoral artery intervention to salvage right lower extremity. Optimize medications for chronic conditions -Hold warfarin tonight patient is in hospital, treat with lovenox dvt prophylaxis with Lovenox History Interval history: He continues to complain of pain in bilateral lower extremities Review of systems Constitutional: No fevers, no malaise, no joint pains CVS: No chest pain, no orthopnea, no dyspnea on exertion, no pedal edema GI: No abdominal pain, no diarrhea, no vomiting, no constipation Respiratory: No shortness of breath, no wheezing, no coughing Hospitalist Physical - Physical exam Narrative exam: General.: Appears well, no distress, nontoxic HEENT: Moist mucous membranes, extraocular muscles intact, no lymphadenopathy Neck: supple Cardiac: S1-S2 heard Lungs: clear to auscultation bilaterally Abdomen: soft , nontender, nondistended, bowel sounds positive Extremities: Patient has ulcerations in both lower extremities, poor pulses Skin: no rash Neurologic: no gross focal deficits Psych: calm, and cooperative - Constitutional Vitals: Temp Pulse Resp BP Pulse Ox 98.6 F 79 16 125/75 92 11/03/18 20:42 11/04/18 05:05 11/03/18 22:19 11/04/18 05:05 11/03/18 23:26 General appearance: Present: mild distress Results - Labs CBC & Chem 7: 11/04/18 05:29 11/04/18 05:29 Labs: Laboratory Last Values WBC 8.0 K/mm3 (4.5-11.0) 11/04/18 05:29 RBC 4.24 M/mm3 (3.65-5.03) 11/04/18 05:29 Hgb 11.9 gm/dl (11.8-15.2) 11/04/18 05:29 Hct 37.4 % (35.5-45.6) 11/04/18 05:29 MCV 88 fl (84-94) 11/04/18 05:29 MCH 28 pg (28-32) 11/04/18 05:29 MCHC 32 % (32-34) 11/04/18 05:29 RDW 19.4 % (13.2-15.2) H 11/04/18 05:29 Plt Count 293 K/mm3 (140-440) 11/04/18 05:29 Lymph % (Auto) 12.7 % (13.4-35.0) L 11/04/18 05:29 [place] % (Auto) 8.0 % (0.0-7.3) H 11/04/18 05:29 Eos % (Auto) 2.8 % (0.0-4.3) 11/04/18 05:29 Baso % (Auto) 1.0 % (0.0-1.8) 11/04/18 05:29 Lymph # 1.0 K/mm3 (1.2-5.4) L 11/04/18 05:29 [place] # 0.6 K/mm3 (0.0-0.8) 11/04/18 05:29 Eos # 0.2 K/mm3 (0.0-0.4) 11/04/18 05:29 Baso # 0.1 K/mm3 (0.0-0.1) 11/04/18 05:29 Seg Neutrophils % 75.5 % (40.0-70.0) H 11/04/18 05:29 Seg Neutrophils # 6.1 K/mm3 (1.8-7.7) 11/04/18 05:29 PT 13.4 Sec. (12.2-14.9) 11/03/18 16:55 INR 0.96 (0.87-1.13) 11/03/18 16:55 APTT 29.2 Sec. (24.2-36.6) 11/03/18 16:55 Sodium 141 mmol/L (137-145) 11/04/18 05:29 Potassium 4.5 mmol/L (3.6-5.0) 11/04/18 05:29 Chloride 108.6 mmol/L (98-107) H 11/04/18 05:29 Carbon Dioxide 23 mmol/L (22-30) 11/04/18 05:29 Anion Gap 14 mmol/L 11/04/18 05:29 BUN 15 mg/dL (9-20) 11/04/18 05:29 Creatinine 0.7 mg/dL (0.8-1.5) L 11/04/18 05:29 Estimated GFR > 60 ml/min 11/04/18 05:29 BUN/Creatinine Ratio 21 % 11/04/18 05:29 Glucose 152 mg/dL (75-100) H 11/04/18 05:29 POC Glucose 158 (70-105) H 11/04/18 07:59 Calcium 8.2 mg/dL (8.4-10.2) L 11/04/18 05:29 Active Medications - Current Medications Current Medications: Generic Name Dose Route Start Last Admin Trade Name Freq PRN Reason Stop Dose Admin Acetaminophen 650 mg 11/03/18 17:31 Tylenol PO Q4H PRN Pain MILD(1-3)/Fever >100.5/MORROW Acetaminophen/Hydrocodone Bitart 1 each 11/03/18 18:00 11/04/18 05:06 [place] 5/325 PO 1 each Q6H RAJAT Administration Alprazolam 0.5 mg 11/03/18 17:43 11/03/18 22:24 Xanax PO 0.5 mg TID PRN Administration Anxiety Atorvastatin Calcium 40 mg 11/03/18 22:00 11/03/18 22:25 Lipitor PO 40 mg QHS RAJAT Administration Dextrose 50 ml 11/03/18 19:31 D50w (25gm) Syringe IV PRN PRN Hypoglycemia Digoxin 0.25 mg 11/04/18 17:00 Lanoxin PO DAILY@1700 RAJAT Diltiazem HCl 60 mg 11/03/18 18:00 11/04/18 05:05 Cardizem PO 60 mg Q6HR RAJAT Administration Enoxaparin Sodium 100 mg 11/03/18 22:00 11/03/18 22:23 Lovenox SUB-Q 100 mg Q12HR RAJAT Administration Famotidine 20 mg 11/03/18 22:00 11/03/18 22:24 Pepcid PO 20 mg BID RAJAT Administration Furosemide 40 mg 11/04/18 10:00 Lasix PO QDAY RAJAT Gabapentin 800 mg 11/03/18 20:00 11/04/18 09:22 Neurontin PO 800 mg TID RAJAT Administration Hydromorphone HCl 0.5 mg 11/03/18 17:46 11/04/18 05:06 Dilaudid IV 0.5 mg Q3H PRN Administration Pain , Severe (7-10) Insulin Human Lispro 0 unit 11/03/18 22:00 11/04/18 09:21 Humalog SUB-Q 2 unit ACHS RAJAT Administration Protocol Ondansetron HCl 4 mg 11/03/18 17:31 Zofran IV Q8H PRN Nausea And Vomiting Prednisone 10 mg 11/04/18 10:00 Deltasone PO DAILY RAJAT Sodium Chloride 10 ml 11/03/18 22:00 11/04/18 00:49 Sodium Chloride Flush Syringe 10 Ml IV 10 ml BID RAJAT Administration Sodium Chloride 10 ml 11/03/18 17:31 Sodium Chloride Flush Syringe 10 Ml IV PRN PRN LINE FLUSH
[2018-11-04] MEDS: LASIX PO SCH (09:34)
[2018-11-04] MEDS: LOVENOX SUB-Q SCH ×2 (09:34→22:29)
[2018-11-04] MEDS: PEPCID PO SCH ×2 (09:34→22:28)
[2018-11-04] MEDS: DELTASONE PO SCH (09:35)
--- NOTE | 2018-11-04 14:32 | Cat Scan Report ---
PROCEDURE: CT ANGIO ABD/FEMORAL ABD AORTA TECHNIQUE: Computerized axial tomographic angiography of the aortoiliac system with bilateral lower extremity runoff was performed after the IV injection of nonionic iodinated contrast including image processing.The image data was postprocessed using 2-dimensional multiplanar reformatted (MPR) and 3-d imensional (MIP and/or volume rendered) techniques. HISTORY: pvd with ulcers COMPARISONS: 03/02/2016 . FINDINGS: Abdominal aorta : There is atherosclerotic calcification and plaque, without focal stenosis, aneurysm , or dissection . Celiac artery: Normal . Atherosclerotic calcification of the splenic artery Superior mesenteric artery: There is atherosclerotic calcification, with no focal stenosis identifie d . LEFT renal artery: Atherosclerotic calcification, without focal stenosis . RIGHT renal artery: There is atherosclerotic calcification of the proximal right renal artery with a pproximately 50% stenosis . Inferior mesenteric artery: Normal . Common iliac arteries: Dense bilateral atherosclerotic calcification. There is a stent in the left c ommon and external iliac arteries, which is patent. External iliac arteries: Stent in the left external iliac artery is patent. There is diffuse atheros clerotic calcification of the right external iliac artery with diffuse luminal narrowing. No occlusio n . RIGHT lower extremity: Femoral arteries: The right common femoral artery is patent but diffusely narrowed. There is occlusio n of the right superficial femoral artery throughout its course . Popliteal arteries: There is reconstitution of the right popliteal artery . Trifurcation vessels: The trifurcation arteries are diffusely patent. There is significant luminal n arrowing of the distal peroneal artery. Dorsalis pedis artery is patent . LEFT lower extremity: Femoral arteries: Left common femoral artery is patent. There is a stent in the left superficial femo ral artery, which is diffusely occluded throughout its course. Popliteal arteries: There is reconstitution of the left popliteal artery . Trifurcation vessels: There is diffuse significant luminal narrowing of the trifurcation vessels. Th e distal anterior tibial artery is occluded starting at the level of the mid tibia, 15 cm superior to the tibiotalar joint. There is diffuse luminal narrowing of the posterior tibial and peroneal arteri es, however which appear patent throughout their course. No blood flow is seen in the dorsalis pedis artery. Abdominal and pelvic viscera: There are bilateral layering pleural effusions. The liver and spleen a re unremarkable. There has been cholecystectomy. There is a small amount of fluid surrounding the saenz creatic tail. There is pancreatic atrophy. Correlate for any clinical signs of pancreatitis. The adre nal glands and kidneys are unremarkable. No bowel obstruction or inflammation Other: None . IMPRESSION: Bilateral peripheral arterial disease as described above. See above for details. Bilateral pleural effusions. A small amount of fluid surrounds the pancreatic tail. Correlate clinically for any signs of pancreat itis This document is electronically signed by Phylicia Paredes MD., November 04 2018 02:30:45 PM ET
[2018-11-04] MEDS ORDERED: COUMADIN PO SCH (17:00)
[2018-11-04] MEDS: LANOXIN PO SCH (17:02)
[2018-11-05] MEDS: CARDIZEM PO SCH ×4 (00:12→17:52)
[2018-11-05] MEDS: NORCO 5/325 PO SCH ×4 (00:14→17:53)
--- NOTE | 2018-11-05 08:59 | Progress Note ---
Assessment and Plan Assessment and plan: 57-year-old man who presents with bilateral lower extremity pain 2 weeks. Is complaining of purulent draining wounds. 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 fib, tobacco dependence,, hyperlipidemia, peripheral arterial disease status post bypass and stents in his legs, partial left foot amputation arterial duplex of lower extremity; shows significant bilateral lower extremity disease involving all segments, CT A/P with run offs; Bilateral peripheral arterial disease Diagnosis Lower extremity arterial disease with critical limb ischemia Hypertension Diabetes ILD COPD A. fib Tobacco dependence Hyperlipidemia Systolic CHF EF 40% Hypercoagulable states Plan Vascular surgery consults appreciated, the patient is going to go for revascularization of left profunda femoral artery, he will need wound care and wound VAC placement, the patient would then need a lead test scheduled right khan perficial femoral artery intervention to salvage right lower extremity. Optimize medications for chronic conditions -Hold warfarin planned for surgery, cont full dose lovenox dvt prophylaxis fully anticoagulated History Interval history: He continues to complain of pain in bilateral lower extremities Review of systems Constitutional: No fevers, no malaise, no joint pains CVS: No chest pain, no orthopnea, no dyspnea on exertion, no pedal edema GI: No abdominal pain, no diarrhea, no vomiting, no constipation Respiratory: No shortness of breath, no wheezing, no coughing Hospitalist Physical - Physical exam Narrative exam: General.: Appears well, no distress, nontoxic HEENT: Moist mucous membranes, extraocular muscles intact, no lymphadenopathy Neck: supple Cardiac: S1-S2 heard Lungs: clear to auscultation bilaterally Abdomen: soft , nontender, nondistended, bowel sounds positive Extremities: Patient has ulcerations in both lower extremities, poor pulses, TM amputation of L foot Skin: ulcer to Left knee and right foot Neurologic: no gross focal deficits Psych: calm, and cooperative - Constitutional Vitals: Temp Pulse Resp BP Pulse Ox 97.8 F 66 20 133/76 88 11/05/18 04:50 11/05/18 06:28 11/05/18 04:50 11/05/18 06:28 11/05/18 04:50 General appearance: Present: mild distress Results - Labs CBC & Chem 7: 11/04/18 05:29 11/04/18 05:29 Labs: Laboratory Last Values WBC 8.0 K/mm3 (4.5-11.0) 11/04/18 05:29 RBC 4.24 M/mm3 (3.65-5.03) 11/04/18 05:29 Hgb 11.9 gm/dl (11.8-15.2) 11/04/18 05:29 Hct 37.4 % (35.5-45.6) 11/04/18 05:29 MCV 88 fl (84-94) 11/04/18 05:29 MCH 28 pg (28-32) 11/04/18 05:29 MCHC 32 % (32-34) 11/04/18 05:29 RDW 19.4 % (13.2-15.2) H 11/04/18 05:29 Plt Count 293 K/mm3 (140-440) 11/04/18 05:29 Lymph % (Auto) 12.7 % (13.4-35.0) L 11/04/18 05:29 [place] % (Auto) 8.0 % (0.0-7.3) H 11/04/18 05:29 Eos % (Auto) 2.8 % (0.0-4.3) 11/04/18 05:29 Baso % (Auto) 1.0 % (0.0-1.8) 11/04/18 05:29 Lymph # 1.0 K/mm3 (1.2-5.4) L 11/04/18 05:29 [place] # 0.6 K/mm3 (0.0-0.8) 11/04/18 05:29 Eos # 0.2 K/mm3 (0.0-0.4) 11/04/18 05:29 Baso # 0.1 K/mm3 (0.0-0.1) 11/04/18 05:29 Seg Neutrophils % 75.5 % (40.0-70.0) H 11/04/18 05:29 Seg Neutrophils # 6.1 K/mm3 (1.8-7.7) 11/04/18 05:29 PT 13.4 Sec. (12.2-14.9) 11/03/18 16:55 INR 0.96 (0.87-1.13) 11/03/18 16:55 APTT 29.2 Sec. (24.2-36.6) 11/03/18 16:55 Sodium 141 mmol/L (137-145) 11/04/18 05:29 Potassium 4.5 mmol/L (3.6-5.0) 11/04/18 05:29 Chloride 108.6 mmol/L (98-107) H 11/04/18 05:29 Carbon Dioxide 23 mmol/L (22-30) 11/04/18 05:29 Anion Gap 14 mmol/L 11/04/18 05:29 BUN 15 mg/dL (9-20) 11/04/18 05:29 Creatinine 0.7 mg/dL (0.8-1.5) L 11/04/18 05:29 Estimated GFR > 60 ml/min 11/04/18 05:29 BUN/Creatinine Ratio 21 % 11/04/18 05:29 Glucose 152 mg/dL (75-100) H 11/04/18 05:29 POC Glucose 210 (70-105) H 11/04/18 21:09 Calcium 8.2 mg/dL (8.4-10.2) L 11/04/18 05:29 Active Medications - Current Medications Current Medications: Generic Name Dose Route Start Last Admin Trade Name Freq PRN Reason Stop Dose Admin Acetaminophen 650 mg 11/03/18 17:31 Tylenol PO Q4H PRN Pain MILD(1-3)/Fever >100.5/MORROW Acetaminophen/Hydrocodone Bitart 1 each 11/03/18 18:00 11/05/18 06:28 [place] 5/325 PO 1 each Q6H RAJAT Administration Alprazolam 0.5 mg 11/03/18 17:43 11/03/18 22:24 Xanax PO 0.5 mg TID PRN Administration Anxiety Atorvastatin Calcium 40 mg 11/03/18 22:00 11/04/18 22:28 Lipitor PO 40 mg QHS RAJAT Administration Dextrose 50 ml 11/03/18 19:31 D50w (25gm) Syringe IV PRN PRN Hypoglycemia Digoxin 0.25 mg 11/04/18 17:00 11/04/18 17:02 Lanoxin PO 0.25 mg DAILY@1700 RAJAT Administration Diltiazem HCl 60 mg 11/03/18 18:00 11/05/18 06:28 Cardizem PO 60 mg Q6HR RAJAT Administration Enoxaparin Sodium 100 mg 11/03/18 22:00 11/04/18 22:29 Lovenox SUB-Q 100 mg Q12HR RAJAT Administration Famotidine 20 mg 11/03/18 22:00 11/04/18 22:28 Pepcid PO 20 mg BID RAJAT Administration Furosemide 40 mg 11/04/18 10:00 11/04/18 09:34 Lasix PO 40 mg QDAY RAJAT Administration Gabapentin 800 mg 11/03/18 20:00 11/04/18 20:50 Neurontin PO 800 mg TID RAJAT Administration Hydromorphone HCl 0.5 mg 11/03/18 17:46 11/04/18 22:31 Dilaudid IV 0.5 mg Q3H PRN Administration Pain , Severe (7-10) Insulin Human Lispro 0 unit 11/03/18 22:00 11/04/18 22:29 Humalog SUB-Q 3 unit ACHS RAJAT Administration Protocol Ondansetron HCl 4 mg 11/03/18 17:31 Zofran IV Q8H PRN Nausea And Vomiting Prednisone 10 mg 11/04/18 10:00 11/04/18 09:35 Deltasone PO 10 mg DAILY ARJAT Administration Sodium Chloride 10 ml 11/03/18 22:00 11/04/18 22:30 Sodium Chloride Flush Syringe 10 Ml IV 10 ml BID RAJAT Administration Sodium Chloride 10 ml 11/03/18 17:31 Sodium Chloride Flush Syringe 10 Ml IV PRN PRN LINE FLUSH Nutrition/Malnutrition Assess - Dietary Evaluation Nutrition/Malnutrition Findings: Nutrition Notes Start: 11/04/18 12: 35 Freq: Status: Active Protocol: Document 11/04/18 12:35 DUTCH (Rec: 11/04/18 12:41 [facility] SR[facility]- [email or web address]) Nutrition Notes Need for Assessment generated from: cashier credit,MST Initial or Follow up Brief Note Current Diagnosis COPD,Diabetes,Hypertension, Heart Failure,Respiratory Failure,Hyperlipidemia Other Pertinent Diagnosis (L) thigh cellulitis, LE pain, (R) foot ulcer, Limb ischemia , PVD Current Diet Consistent CHO Labs/Tests BG 152 Pertinent Medications Lasix, Prednisone Height 5 ft 7 in Weight 108.862 kg [place] Body Weight (kg) 67.27 BMI 37.5 Weight Status Obese Subjective/Other Information Pt screened for skin risk ( Dell score: 20) and malnutrition risk (wt loss). He is scheduled for revascularization procedure on 11/06/18. Burn Absent Trauma Absent Is patient on ventilator? No Is Patient Ambulatory and/or Out of Bed Yes REE-([facility]-ambulatory/OOB) [ 2420.925 [id number].[id number]] Kcal/Kg value to use for calculation 18 Approximate Energy Requirements Using 1960 kcal/Kg Calculation Used for Recommendations Kcal/kg Additional Notes Pro needs 1.25-1.5g/kg adjBW: 110-132g/day Fluid needs 1ml/kcal Nutrition Intervention Follow-Up By: 11/07/18 Additional Comments F/U: intakes, need for ONS ( Glucerna and Jonathan) after procedure, wt assessment
[2018-11-05] MEDS: HumaLOG SUB-Q SCH ×4 (09:15→22:45)
[2018-11-05] MEDS: DELTASONE PO SCH (09:16)
[2018-11-05] MEDS: NEURONTIN PO SCH ×3 (09:16→21:39)
[2018-11-05] MEDS: PEPCID PO SCH ×2 (09:17→21:39)
[2018-11-05] MEDS: LOVENOX SUB-Q SCH ×2 (09:17→22:45)
[2018-11-05] MEDS: SODIUM CHLORIDE FLUSH SYRINGE 10 ML IV SCH ×2 (09:18→21:43)
[2018-11-05] MEDS: LASIX PO SCH (09:30)
[2018-11-05] MEDS: DILAUDID IV PRN ×2 (13:48→21:40)
[2018-11-05] MEDS: LANOXIN PO SCH (17:52)
[2018-11-06] MEDS: CARDIZEM PO SCH ×4 (00:35→17:18)
[2018-11-06] MEDS: NORCO 5/325 PO SCH ×4 (01:25→18:35)
[2018-11-06] MEDS: DILAUDID IV PRN ×3 (03:04→21:28)
[2018-11-06 06:10] LABS: INR 1.06 (0.87-1.13); Partial Thromboplastin Time 34.8 Sec. (24.2-36.6)
[2018-11-06 06:19] LABS: BUN/Creatinine Ratio 19; Blood Urea Nitrogen 19 mg/dL (9-20); Hemolysis Index 4
[2018-11-06] MEDS: HumaLOG SUB-Q SCH ×5 (07:30→22:04)
[2018-11-06] MEDS: NEURONTIN PO SCH ×3 (08:00→20:43)
[2018-11-06] MEDS ORDERED: HEPARIN/NS 5000 UNIT/500ML(CATH LAB) 1,000 ML IR ONE (09:58)
[2018-11-06] MEDS ORDERED: NITROGLYCERIN SYRINGE 3 ML ONE (09:59)
[2018-11-06] MEDS ORDERED: XYLOCAINE 2% INFILTRATI ONE (09:59)
[2018-11-06] MEDS ORDERED: CALAN ONE (09:59)
[2018-11-06] MEDS ORDERED: ATROPINE 0.1% (CARDIAC) ONE (10:00)
[2018-11-06] MEDS ORDERED: NACL 0.9% 500 ML 500 ML IV SCH (10:00)
[2018-11-06] MEDS: LOVENOX SUB-Q SCH ×2 (10:00→21:28)
[2018-11-06] MEDS: SUBLIMAZE ONE ×4 (10:46→12:15)
[2018-11-06] MEDS: VERSED ONE ×4 (10:46→12:15)
[2018-11-06] MEDS: HEPARIN 10,000 UNITS/10 ML ONE ×3 (10:48→11:35)
[2018-11-06] MEDS ORDERED: NACL 0.9% 500 ML 0 ML ONE (11:11)
[2018-11-06] MEDS ORDERED: HEPARIN/NS 5000 UNIT/500ML(CATH LAB) 500 ML IR ONE (11:31)
[2018-11-06] MEDS: NACL 0.9% 1000 ML 1,000 ML ONE ×2 (11:32→11:45)
[2018-11-06] MEDS: CALAN ONE ×2 (11:33→11:45)
[2018-11-06] MEDS: TRIDIL DRIP 50MG/250ML 50 MG/250 ML BOTTLE ONE ×2 (11:33→11:45)
[2018-11-06] MEDS ORDERED: NITROGLYCERIN SYRINGE 6 ML ONE (11:51)
[2018-11-06] MEDS ORDERED: PLAVIX ONE (12:25)
[2018-11-06] MEDS ORDERED: ALUM-MAG HYDROX-SIMETH 200-200-20MG/5ML ONE (12:25)
--- NOTE | 2018-11-06 12:32 | Progress Note ---
Assessment and Plan Assessment and plan: 57-year-old man who presents with bilateral lower extremity pain 2 weeks. Is complaining of purulent draining wounds. 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 fib, tobacco dependence,, hyperlipidemia, peripheral arterial disease status post bypass and stents in his legs, partial left foot amputation arterial duplex of lower extremity; shows significant bilateral lower extremity disease involving all segments, CT A/P with run offs; Bilateral peripheral arterial disease Diagnosis Lower extremity arterial disease with critical limb ischemia Hypertension Diabetes ILD COPD A. fib Tobacco dependence Hyperlipidemia Systolic CHF EF 40% Hypercoagulable states Plan Vascular surgery consults appreciated, the patient is going to go for revascularization of left profunda femoral artery, he will need wound care and wound VAC placement, the patient would then need a lead test scheduled right khan perficial femoral artery intervention to salvage right lower extremity. Optimize medications for chronic conditions -case dw dr Finn, dc lovenox, restart warfarin, bridge not required -Sp LLE angioplasty 11/06, he also has chronic PAD on right which need to be addressed as an outpatient -Wound care consult and Gen surgery consult, likely needs debridement of L thigh wound dvt prophylaxis fully anticoagulated History Interval history: He continues to complain of pain in bilateral lower extremities Review of systems Constitutional: No fevers, no malaise, no joint pains CVS: No chest pain, no orthopnea, no dyspnea on exertion, no pedal edema GI: No abdominal pain, no diarrhea, no vomiting, no constipation Respiratory: No shortness of breath, no wheezing, no coughing Hospitalist Physical - Physical exam Narrative exam: General.: Appears well, no distress, nontoxic HEENT: Moist mucous membranes, extraocular muscles intact, no lymphadenopathy Neck: supple Cardiac: S1-S2 heard Lungs: clear to auscultation bilaterally Abdomen: soft , nontender, nondistended, bowel sounds positive Extremities: Patient has ulcerations in both lower extremities, poor pulses, TM amputation of L foot Skin: ulcer to Left knee/thigh and right foot Neurologic: no gross focal deficits Psych: calm, and cooperative - Constitutional Vitals: Temp Pulse Resp BP Pulse Ox 97.9 F 53 L 18 123/74 93 11/06/18 06:06 11/06/18 06:42 11/06/18 06:06 11/06/18 06:42 11/05/18 23:45 General appearance: Present: mild distress Results - Labs CBC & Chem 7: 11/04/18 05:29 11/06/18 04:41 Labs: Laboratory Last Values WBC 8.0 K/mm3 (4.5-11.0) 11/04/18 05:29 RBC 4.24 M/mm3 (3.65-5.03) 11/04/18 05:29 Hgb 11.9 gm/dl (11.8-15.2) 11/04/18 05:29 Hct 37.4 % (35.5-45.6) 11/04/18 05:29 MCV 88 fl (84-94) 11/04/18 05:29 MCH 28 pg (28-32) 11/04/18 05:29 MCHC 32 % (32-34) 11/04/18 05:29 RDW 19.4 % (13.2-15.2) H 11/04/18 05:29 Plt Count 293 K/mm3 (140-440) 11/04/18 05:29 Lymph % (Auto) 12.7 % (13.4-35.0) L 11/04/18 05:29 [place] % (Auto) 8.0 % (0.0-7.3) H 11/04/18 05:29 Eos % (Auto) 2.8 % (0.0-4.3) 11/04/18 05:29 Baso % (Auto) 1.0 % (0.0-1.8) 11/04/18 05:29 Lymph # 1.0 K/mm3 (1.2-5.4) L 11/04/18 05:29 [place] # 0.6 K/mm3 (0.0-0.8) 11/04/18 05:29 Eos # 0.2 K/mm3 (0.0-0.4) 11/04/18 05:29 Baso # 0.1 K/mm3 (0.0-0.1) 11/04/18 05:29 Seg Neutrophils % 75.5 % (40.0-70.0) H 11/04/18 05:29 Seg Neutrophils # 6.1 K/mm3 (1.8-7.7) 11/04/18 05:29 PT 14.5 Sec. (12.2-14.9) 11/06/18 04:41 INR 1.06 (0.87-1.13) 11/06/18 04:41 APTT 34.8 Sec. (24.2-36.6) 11/06/18 04:41 Sodium 137 mmol/L (137-145) 11/06/18 04:41 Potassium 4.8 mmol/L (3.6-5.0) 11/06/18 04:41 Chloride 102.9 mmol/L (98-107) 11/06/18 04:41 Carbon Dioxide 22 mmol/L (22-30) 11/06/18 04:41 Anion Gap 17 mmol/L 11/06/18 04:41 BUN 19 mg/dL (9-20) 11/06/18 04:41 Creatinine 1.0 mg/dL (0.8-1.5) 11/06/18 04:41 Estimated GFR > 60 ml/min 11/06/18 04:41 BUN/Creatinine Ratio 19 % 11/06/18 04:41 Glucose 136 mg/dL (75-100) H 11/06/18 04:41 POC Glucose 127 (70-105) H 11/06/18 07:44 Calcium 9.0 mg/dL (8.4-10.2) 11/06/18 04:41 Active Medications - Current Medications Current Medications: Generic Name Dose Route Start Last Admin Trade Name Freq PRN Reason Stop Dose Admin Acetaminophen 650 mg 11/03/18 17:31 Tylenol PO Q4H PRN Pain MILD(1-3)/Fever >100.5/MORROW Acetaminophen/Hydrocodone Bitart 1 each 11/03/18 18:00 11/06/18 06:43 [place] 5/325 PO 1 each Q6H RAJAT Administration Alprazolam 0.5 mg 11/03/18 17:43 11/03/18 22:24 Xanax PO 0.5 mg TID PRN Administration Anxiety Atorvastatin Calcium 40 mg 11/03/18 22:00 11/05/18 21:39 Lipitor PO 40 mg QHS RAJAT Administration Dextrose 50 ml 11/03/18 19:31 D50w (25gm) Syringe IV PRN PRN Hypoglycemia Digoxin 0.25 mg 11/04/18 17:00 11/05/18 17:52 Lanoxin PO 0.25 mg DAILY@1700 RAJAT Administration Diltiazem HCl 60 mg 11/03/18 18:00 11/06/18 06:42 Cardizem PO Not Given Q6HR RAJAT Enoxaparin Sodium 100 mg 11/03/18 22:00 11/05/18 22:45 Lovenox SUB-Q 100 mg Q12HR RAJAT Administration Famotidine 20 mg 11/03/18 22:00 11/05/18 21:39 Pepcid PO 20 mg BID RAJAT Administration Furosemide 40 mg 11/04/18 10:00 11/05/18 09:30 Lasix PO 40 mg QDAY RAJAT Administration Gabapentin 800 mg 11/03/18 20:00 11/06/18 08:00 Neurontin PO Not Given TID RAJAT Hydromorphone HCl 0.5 mg 11/03/18 17:46 11/06/18 03:04 Dilaudid IV 0.5 mg Q3H PRN Administration Pain , Severe (7-10) Sodium Chloride 500 mls @ 50 mls/hr 11/06/18 10:00 11/06/18 10:45 Nacl 0.9% 500 Ml IV 100 mls DIRECT RAJAT Administration Insulin Human Lispro 0 unit 11/03/18 22:00 11/06/18 11:39 Humalog SUB-Q Not Given ACHS [facility] Protocol Ondansetron HCl 4 mg 11/03/18 17:31 Zofran IV Q8H PRN Nausea And Vomiting Prednisone 10 mg 11/04/18 10:00 11/05/18 09:16 Deltasone PO 10 mg DAILY RAJAT Administration Sodium Chloride 10 ml 11/03/18 22:00 11/05/18 21:43 Sodium Chloride Flush Syringe 10 Ml IV 10 ml BID RAJAT Administration Sodium Chloride 10 ml 11/03/18 17:31 Sodium Chloride Flush Syringe 10 Ml IV PRN PRN LINE FLUSH Nutrition/Malnutrition Assess - Dietary Evaluation Nutrition/Malnutrition Findings: Nutrition Notes Start: 11/04/18 12:35 Freq: Status: Active Protocol: Document 11/04/18 12:35 DUTCH (Rec: 11/04/18 12:41 D[facility] [email or web address]- [email or web address]) Nutrition Notes Need for Assessment generated from: chef's assistant,MST Initial or Follow up Brief Note Current Diagnosis COPD,Diabetes,Hypertension, Heart Failure,Respiratory Failure,Hyperlipidemia Other Pertinent Diagnosis (L) thigh cellulitis, LE pain, (R) foot ulcer, Limb ischemia , PVD Current Diet Consistent CHO Labs/Tests BG 152 Pertinent Medications Lasix, Prednisone Height 5 ft 7 in Weight 108.862 kg [place] Body Weight (kg) 67.27 BMI 37.5 Weight Status Obese Subjective/Other Information Pt screened for skin risk ( Dell score: 20) and malnutrition risk (wt loss). He is scheduled for revascularization procedure on 11/06/18. Burn Absent Trauma Absent Is patient on ventilator? No Is Patient Ambulatory and/or Out of Bed Yes REE-([place]-ambulatory/OOB) [ 2420.925 [email or web address]] Kcal/Kg value to use for calculation 18 Approximate Energy Requirements Using 1960 kcal/Kg Calculation Used for Recommendations Kcal/kg Additional Notes Pro needs 1.25-1.5g/kg adjBW: 110-132g/day Fluid needs 1ml/kcal Nutrition Intervention Follow-Up By: 11/07/18 Additional Comments F/U: intakes, need for ONS ( Glucerna and Jonathan) after procedure, wt assessment
--- NOTE | 2018-11-06 12:44 | Post Operative Note ---
Date of procedure: 11/06/18 Pre-op diagnosis: CLI bilateral lower extremities Post-op diagnosis: same Procedure: 1. Ultrasound guided access of the left radial artery 2. Selection of the left common iliac artery, external iliac artery, common femoral artery and profunda femoral artery with angiography of the left lower extremity 3. Angioplasty of the left common iliac artery and external iliac artery with 7 mm x 80 mm angioplasty balloon and 8 mm x 40 mm angioplasty balloon 4. Atherectomy of the left profunda femoral artery with a 1.5 mm CSI solid atherectomy device 5. Angioplasty of the left profunda femoral artery with a 4 mm x 80 mm angioplasty balloon ; 5 mm x 40 mm iNPACT DCB ; 5 mm x 80 mm angioplasty balloon Anesthesia: local (w/ conscious sedation) Surgeon: GERARDO LOWRY Estimated blood loss: minimal Condition: stable Disposition: floor
[2018-11-06] MEDS ORDERED: BABY ASPIRIN ONE (12:46)
--- NOTE | 2018-11-06 12:48 | Operative Report ---
Operative Report Operative Report: EXAM: 1. Ultrasound guided access of the left radial artery 2. Selection of the left common iliac artery, external iliac artery, common femoral artery and profunda femoral artery with angiography of the left lower extremity 3. Angioplasty of the left common iliac artery and external iliac artery with 7 mm x 80 mm angioplasty balloon and 8 mm x 40 mm angioplasty balloon 4. Atherectomy of the left profunda femoral artery with a 1.5 mm CSI solid atherectomy device 5. Angioplasty of the left profunda femoral artery with a 4 mm x 80 mm angioplasty balloon ; 5 mm x 40 mm iNPACT DCB ; 5 mm x 40 mm angioplasty balloon DATE: 11/06/18 [employer] SUPERVISOR: GERARDO LOWRY MD INDICATION: Critical limb ischemia of the lower extremities. MEDICATIONS: Please see nursing report for full details. DEVICES: 7 mm x 80 mm angioplasty balloon 8 mm x 40 mm angioplasty balloon 4 mm x 80 mm angioplasty balloon 5 mm x 40 mm iNPACT DCB 5 mm x 40 mm angioplasty balloon CONTRAST: Please see procedure note for full details. PROCEDURE: The risks, benefits, and alternatives were discussed with the patient; written informed consent was obtained. Drug-coated balloon technology was discussed in depth with the patient. The left wrist was prepped and draped in sterile fashion. Left radial artery was patent. Under direct ultrasound guidance, the left radial artery was accessed with a 21-gauge micropuncture needle. 0.018 inch wire was passed into the radial artery. The needle was exchanged for a 4-5 Glidesheath slender. Ra dial cocktail was administered an additional heparin was administered. Angled catheter and J-wire were used to select the infrarenal abdominal aorta. The left common iliac artery, external iliac artery, and profunda femoral artery were selected and digital subtraction angiography was performed demonstrating a slightly crushed distal iCAST external iliac artery stent with flattening and with mild undersizing of the proximal left common iliac artery stent. The rest of the iliacs were patent. Digital subtraction angiography was performed demonstrating patency of the left common femoral artery. The left profunda femoral artery ostium was patent, but the first branch which was the dominant vertical branch had a 95% narrowing. The rest of the profunda was patent. The SFA was completely occluded with instant occlusions. The above the knee popliteal artery patent. The mid popliteal artery was patent but the below-knee popliteal artery was occluded. There is a stent with some narrowing within it in the proximal posterior tibial artery and flow within the peroneal artery and anterior tibial artery through an extensive networks of collaterals. The tibial vessels could be seen to the mid calf but could not be seen further. This was possibly limited by motion. Glidewire advantage was passed into the left common femoral artery. Sheath was exchanged for a 6 Spanish Glidesheath 119 cm sheath which was positioned in the left common iliac artery. Angioplasty was performed in the left common iliac artery and external iliac artery with a 7 mm x 80 mm angioplasty balloon and then post dilated with an 8 mm x 40 mm angioplasty balloon. Digital subtraction angiography demonstrated better apposition to the wall with correction of the deformity of the distal left external iliac artery. There is no residual narrowing noted on angiography. Sheath was then advanced into the left common femoral artery and a ViperWire was passed into the left profunda femoral artery. CSI atherectomy was performed of the 95% narrowing in the vertical branch of the profunda femoral artery on low, medium, and high. This area was then predilated with a 4 mm x 80 mm angioplasty balloon and then treated with a 5 mm x 40 mm iNPACT DCB. Digital subtraction angiography demonstrated a nonflow limiting small dissection. This was treated with a 5 mm x 40 mm angioplasty balloon for approximately 4-1/2 minutes. Digital subtraction angiography demonstrated minimal residual dissection with minimal residual narrowing. All wires, catheters, and sheath was removed and the site was closed with a TR band. Patient tolerated the procedure well. No immediate postprocedure complication. FINDINGS: Please see procedure note above IMPRESSION: 1. Angioplasty of the left common iliac artery with a 7 mm x 80 mm angioplasty balloon and 8 mm x 40 mm angioplasty balloon 2. Angioplasty of the left external iliac artery with a 7 mm x 80 mm angioplasty balloon and 8 mm x 40 mm angioplasty balloon 3. Atherectomy and angioplasty of the left profunda femoral artery with a 5 mm x 40 iNPACT DCB and 5 mm x 40 mm angioplasty balloon
[2018-11-06] MEDS ORDERED: HumaLOG SUB-Q ONE (14:19)
[2018-11-06] MEDS: HALFPRIN EC PO SCH (15:36)
[2018-11-06] MEDS: PEPCID PO SCH ×2 (15:37→21:33)
[2018-11-06] MEDS: LASIX PO SCH (15:37)
[2018-11-06] MEDS: SODIUM CHLORIDE FLUSH SYRINGE 10 ML IV SCH ×2 (15:37→21:36)
[2018-11-06] MEDS: DELTASONE PO SCH (15:44)
[2018-11-06] MEDS: LANOXIN PO SCH (17:18)
--- NOTE | 2018-11-06 18:02 | Event Note ---
Date: 11/06/18 Consult noted for lower extremity wounds. Discussed with Dr. Finn. Pt s/p revascularization. He has a hx of PAD s/p multiple LE revascularization procedures. Will see patient with brass finisher tomorrow. Plan for possible bedside debridement and wound vac placement.
[2018-11-07] MEDS: NORCO 5/325 PO SCH ×3 (00:35→12:00)
[2018-11-07] MEDS: CARDIZEM PO SCH ×4 (00:35→17:46)
[2018-11-07] MEDS: HumaLOG SUB-Q SCH ×4 (07:30→21:35)
[2018-11-07] MEDS: NEURONTIN PO SCH ×3 (08:00→20:57)
[2018-11-07] MEDS: PLAVIX PO SCH (09:16)
[2018-11-07] MEDS: LASIX PO SCH (09:16)
[2018-11-07] MEDS: DELTASONE PO SCH (09:17)
[2018-11-07] MEDS: HALFPRIN EC PO SCH (09:17)
[2018-11-07] MEDS: PEPCID PO SCH ×2 (09:18→21:34)
[2018-11-07] MEDS: SODIUM CHLORIDE FLUSH SYRINGE 10 ML IV SCH ×2 (09:19→21:36)
[2018-11-07] MEDS: DILAUDID IV PRN ×3 (09:28→22:00)
[2018-11-07] MEDS ORDERED: XYLOCAINE TOPICAL 4% TP ONE (10:00)
--- NOTE | 2018-11-07 10:53 | Consultation ---
History of Present Illness Consult date: 11/07/18 Chief complaint: wound of bilateral lower extremity - History of present illness History of present illness: 57 yo M with hx of severe PAD s/p multiple LE revascularization procedures including LLE bypass, iliac and SFA stenting presented to ER with c/o leg pain. The patient has an open wound of the left thigh and wounds of the right foot for the last 2 months. He had a vascular procedure on his left leg in 2012 after which he developed a hematoma at the incision. This was evacuated and the wound eventually healed. It opened back up 2 months ago. The patient has not been seeking care for the wound up until now. He denies pain at the site. He does have pain at his right heel. No f/c. No cp, sob, n/v, n/t of the extremities. Past History Past Medical History: COPD (w/ 2L home oxygen), diabetes, DVT, heart failure, hypertension, hyperlipidemia, PVD, other (OA) Past Surgical History: cholecystectomy, Other (left leg vein bypass/stents/TMA/I&D thigh seroma) Social history: single. denies: smoking, alcohol abuse, prescription drug abuse Family history: diabetes, hypertension Medications and Allergies Allergies Allergy/AdvReac Type Severity Reaction Status Date / Time ketorolac tromethamine Allergy Vomiting Verified 01/31/17 05:38 [From Toradol] tramadol Allergy Vomiting Verified 01/31/17 05:38 Home Medications Medication Instructions Recorded Confirmed Last Taken Type ALPRAZolam [Xanax TAB] 0.5 mg PO TID PRN #10 tablet 11/17/17 08/26/18 Unknown Rx AtorvaSTATin [Lipitor] 40 mg PO QHS #30 11/17/17 08/26/18 11/14/17 Rx metFORMIN [Glucophage] 500 mg PO BID tablet 11/17/17 08/26/18 Unknown Rx Gabapentin [Neurontin] 800 mg PO TID 08/02/18 08/26/18 Unknown History Famotidine [Pepcid] 20 mg PO BID #60 tablet 08/15/18 08/26/18 Unknown Rx HYDROcodone/ACETAMINOPHEN 1 each PO Q6H #10 tablet 08/15/18 08/26/18 Unknown Rx [Hydrocodone-Acetamin 5-325 mg] Sildenafil [Revatio] 20 mg PO TID 30 Days tablet 08/15/18 08/26/18 Unknown Rx Sulfamethoxazole/Trimethoprim 1 each PO DAILY 30 Days tablet 08/15/18 08/26/18 Unknown Rx [Bactrim DS TAB] Digoxin [Lanoxin] 0.25 mg PO DAILY@1700 #30 tablet 09/01/18 Unknown Rx Furosemide [Lasix TAB] 40 mg PO QDAY #30 tablet 09/01/18 Unknown Rx Insulin Glargine,Hum.rec.anlog 35 unit SQ BID #1 vial 09/01/18 Unknown Rx [Lantus] Warfarin [Coumadin] 5 mg PO DAILY@1700 #30 tablet 09/01/18 Unknown Rx dilTIAZem [Cardizem] 60 mg PO Q6HR #120 tablet 09/01/18 Unknown Rx predniSONE [Deltasone] 10 mg PO DAILY 4 Days tablet 09/01/18 Unknown Rx predniSONE [Deltasone] 20 mg PO QDAY 4 Days tab 09/01/18 Unknown Rx predniSONE [Deltasone] 40 mg PO DAILY 4 Days tablet 09/01/18 Unknown Rx predniSONE [Deltasone] 60 mg PO QDAY 4 Days tab 09/01/18 Unknown Rx Active Meds: Active Medications Acetaminophen (Tylenol) 650 mg PO Q4H PRN PRN Reason: Pain MILD(1-3)/Fever >100.5/MORROW Acetaminophen/Hydrocodone Bitart ([place] 5/325) 1 each PO Q6H [facility] Last Admin: 11/07/18 06:11 Dose: 1 each Documented by: Alprazolam (Xanax) 0.5 mg PO TID PRN PRN Reason: Anxiety Last Admin: 11/03/18 22:24 Dose: 0.5 mg Documented by: Aspirin (Halfprin Ec) 81 mg PO QDAY [facility] Last Admin: 11/07/18 09:17 Dose: 81 mg Documented by: Atorvastatin Calcium (Lipitor) 40 mg PO QHS [facility] Last Admin: 11/06/18 21:33 Dose: 40 mg Documented by: Clopidogrel Bisulfate (Plavix) 75 mg PO QDAY [facility] Last Admin: 11/07/18 09:16 Dose: 75 mg Documented by: Dextrose (D50w (25gm) Syringe) 50 ml IV PRN PRN PRN Reason: Hypoglycemia Digoxin (Lanoxin) 0.25 mg PO DAILY@1700 [facility] Last Admin: 11/06/18 17:18 Dose: 0.25 mg Documented by: Diltiazem HCl (Cardizem) 60 mg PO Q6HR [facility] Last Admin: 11/07/18 06:10 Dose: 60 mg Documented by: Enoxaparin Sodium (Lovenox) 40 mg SUB-Q QDAY@2200 [facility] Last Admin: 11/06/18 21:28 Dose: 40 mg Documented by: Famotidine (Pepcid) 20 mg PO BID [facility] Last Admin: 11/07/18 09:18 Dose: 20 mg Documented by: Furosemide (Lasix) 40 mg PO QDAY [facility] Last Admin: 11/07/18 09:16 Dose: 40 mg Documented by: Gabapentin (Neurontin) 800 mg PO TID [facility] Last Admin: 11/07/18 08:00 Dose: 800 mg Documented by: Hydromorphone HCl (Dilaudid) 0.5 mg IV Q3H PRN PRN Reason: Pain , Severe (7-10) Last Admin: 11/07/18 09:28 Dose: 0.5 mg Documented by: Sodium Chloride (Nacl 0.9% 500 Ml) 500 mls @ 50 mls/hr IV DIRECT [facility] Last Admin: 11/06/18 10:45 Dose: 100 mls Documented by: Insulin Human Lispro (Humalog) 0 unit SUB-Q ACHS [facility]; Protocol Last Admin: 11/07/18 07:30 Dose: 2 unit Documented by: Ondansetron HCl (Zofran) 4 mg IV Q8H PRN PRN Reason: Nausea And Vomiting Prednisone (Deltasone) 10 mg PO DAILY [facility] Last Admin: 11/07/18 09:17 Dose: 10 mg Documented by: Sodium Chloride (Sodium Chloride Flush Syringe 10 Ml) 10 ml IV BID [facility] Last Admin: 11/07/18 09:19 Dose: 10 ml Documented by: Sodium Chloride (Sodium Chloride Flush Syringe 10 Ml) 10 ml IV PRN PRN PRN Reason: LINE FLUSH Review of Systems All systems: negative (10 pt ROS performed and negative except for that listed in HPI) Exam Vital Signs Pulse Resp 81 15 11/03/18 14:44 11/03/18 14:44 Narrative exam: Gen: AAOx3. NAD CV: s1, S2+ resp: even and unlabored, + productive cough Abd: soft Ext: L anterior thigh wound with necrotic tissue around the periphery and slough at the wound base. + Odor. No drainge. Minimal TTP. Subcutaneous tissue visible. Wound of dorsal aspect of the foot with thick slough over wound bed, no drainage or odor, mild TTP. Callus of right heel with + TTP, no drainage or erythema. Results - Labs 11/04/18 05:29 11/06/18 04:41 Abnormal lab results 11/06/18 11/06/18 11/06/18 Range/Units 14:16 16:00 21:05 POC Glucose 281 H 230 H 154 H (70-105) 11/07/18 Range/Units 07:46 POC Glucose 162 H (70-105) - Imaging CT scan - abdomen: image reviewed Additional studies: Arterial duplex LE Assessment and Plan 57 yo M with 1. open L thigh wound 2. severe PAD 3. right foot and heel wound Plan: 1. Patient is s/p revascularization to LLE by IR 2. needs debridement of L thigh and right foot wounds. I explained all risks, benefits, alternatives to surgery with the patient and consent obtained 3. will send wound cultures from L thigh 4. continue abx per 1' service 5. will need follow up in wound care clinic on dc 6. wound vac to left thigh tomorrow - discussed with panel coverer Thank you, please call with questions
--- NOTE | 2018-11-07 10:59 | Procedure Note ---
Date of procedure: 11/07/18 Pre-op diagnosis: Open L thigh wound, R foot and heel wound, PAD Post-op diagnosis: same Procedure: Excisional debridement of left thigh wound, right foot and heel wound Findings: Consent obtained. Time out performed with nursing in the room. Topical 4% lidocaine was placed on all wounds for 5-10 minutes before starting procedure. The left thigh wound and right foot wound was prepped with betadine. First, the left thigh was debrided. Sharp excisional debridement of the necrotic subctuaneous tissue was performed using foreceps, 15 blade, curette, and scissors. All necrotic tissue was removed and wound base clean. The wound had undermining circumfrentially, greatest of which was 5 cm in the 12:30 position. There was bleeding from the wound bed and edges, controlled adequately with pressure. Once hemostasis was ensure, the wound was cleansed and packed with 1 piece of alginate. The wound was then packed with 2 pieces of 4x4 gauze, covered with ABD pad and wrapped with kerlex. Next, the right foot and heel wounds were debrided. Sharp excisional debridement of the necrotic subctuaneous tissue was performed using foreceps, 15 blade, curette for the right dorsal foot wound. Once all slough and necrotic tissue was removed, the wound was checked for hemostasis and alginate was applied to the wound bed. The wound was covered with 4x4 gauze and wrapped with kerlex. Sharp excisional debridement of the callus and slough of skin and subctuaneous tissue was performed using foreceps, 15 blade, curette of the right heel wound. There was a small 1 cm wound underlying the callus. which was clean. No drainage. There was no bleeding. This wound was cleansed, covered with 4x4 gauze, and foam dressing. The patient tolerated the procedure well. All sharps were disposed of appropriately. Pre procedure Wound measurement: 1. R heel: 1 cm x 1.5 cm 2. R foot: 4x6x0.3cm 3. Left thigh: 8.5x5.5x1.5 Post procedure wound measurements: 1. R heel: 1 cm x 1.5 cm x 0.1 cm 2. R foot: 4x6x0.4cm 3. Left thigh: 8.5x5.5x 1.6cm Anesthesia: local Surgeon: REBECA JUAREZ Estimated blood loss: minimal Pathology: list (left thigh wound culture) Specimen disposition: to lab Condition: stable Disposition: no change
--- NOTE | 2018-11-07 11:38 | Progress Note ---
Assessment and Plan Assessment and plan: 57-year-old man who presents with bilateral lower extremity pain 2 weeks. Is complaining of purulent draining wounds. 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 fib, tobacco dependence,, hyperlipidemia, peripheral arterial disease status post bypass and stents in his legs, partial left foot amputation arterial duplex of lower extremity; shows significant bilateral lower extremity disease involving all segments, CT A/P with run offs; Bilateral peripheral arterial disease Diagnosis Lower extremity arterial disease with critical limb ischemia Hypertension Diabetes ILD COPD A. fib Tobacco dependence Hyperlipidemia chronic Systolic CHF EF 40% Hypercoagulable states Plan Vascular surgery consults appreciated, -Sp LLE angioplasty 11/06, he also has chronic PAD on right which need to be addressed as an outpatient Optimize medications for chronic conditions -case dw dr Finn, dc lovenox, restart warfarin, bridge not required -Wound care consult and Gen surgery consult, likely needs debridement of L thigh wound and R foot wound dvt prophylaxis fully anticoagulated History Interval history: He continues to complain of pain in bilateral lower extremities Review of systems Constitutional: No fevers, no malaise, no joint pains CVS: No chest pain, no orthopnea, no dyspnea on exertion, no pedal edema GI: No abdominal pain, no diarrhea, no vomiting, no constipation Respiratory: No shortness of breath, no wheezing, no coughing Hospitalist Physical - Physical exam Narrative exam: General.: Appears well, no distress, nontoxic HEENT: Moist mucous membranes, extraocular muscles intact, no lymphadenopathy Neck: supple Cardiac: S1-S2 heard Lungs: clear to auscultation bilaterally Abdomen: soft , nontender, nondistended, bowel sounds positive Extremities: Patient has ulcerations in both lower extremities, poor pulses, TM amputation of L foot Skin: ulcer to Left knee/thigh and right foot Neurologic: no gross focal deficits Psych: calm, and cooperative - Constitutional Vitals: Temp Pulse Resp BP Pulse Ox 97.6 F 67 18 131/78 91 11/07/18 05:41 11/07/18 06:10 11/07/18 05:41 11/07/18 06:10 11/07/18 05:41 General appearance: Present: mild distress Results - Labs CBC & Chem 7: 11/04/18 05:29 11/06/18 04:41 Labs: Laboratory Last Values WBC 8.0 K/mm3 (4.5-11.0) 11/04/18 05:29 RBC 4.24 M/mm3 (3.65-5.03) 11/04/18 05:29 Hgb 11.9 gm/dl (11.8-15.2) 11/04/18 05:29 Hct 37.4 % (35.5-45.6) 11/04/18 05:29 MCV 88 fl (84-94) 11/04/18 05:29 MCH 28 pg (28-32) 11/04/18 05:29 MCHC 32 % (32-34) 11/04/18 05:29 RDW 19.4 % (13.2-15.2) H 11/04/18 05:29 Plt Count 293 K/mm3 (140-440) 11/04/18 05:29 Lymph % (Auto) 12.7 % (13.4-35.0) L 11/04/18 05:29 [place] % (Auto) 8.0 % (0.0-7.3) H 11/04/18 05:29 Eos % (Auto) 2.8 % (0.0-4.3) 11/04/18 05:29 Baso % (Auto) 1.0 % (0.0-1.8) 11/04/18 05:29 Lymph # 1.0 K/mm3 (1.2-5.4) L 11/04/18 05:29 [place] # 0.6 K/mm3 (0.0-0.8) 11/04/18 05:29 Eos # 0.2 K/mm3 (0.0-0.4) 11/04/18 05:29 Baso # 0.1 K/mm3 (0.0-0.1) 11/04/18 05:29 Seg Neutrophils % 75.5 % (40.0-70.0) H 11/04/18 05:29 Seg Neutrophils # 6.1 K/mm3 (1.8-7.7) 11/04/18 05:29 PT 14.5 Sec. (12.2-14.9) 11/06/18 04:41 INR 1.06 (0.87-1.13) 11/06/18 04:41 APTT 34.8 Sec. (24.2-36.6) 11/06/18 04:41 Sodium 137 mmol/L (137-145) 11/06/18 04:41 Potassium 4.8 mmol/L (3.6-5.0) 11/06/18 04:41 Chloride 102.9 mmol/L (98-107) 11/06/18 04:41 Carbon Dioxide 22 mmol/L (22-30) 11/06/18 04:41 Anion Gap 17 mmol/L 11/06/18 04:41 BUN 19 mg/dL (9-20) 11/06/18 04:41 Creatinine 1.0 mg/dL (0.8-1.5) 11/06/18 04:41 Estimated GFR > 60 ml/min 11/06/18 04:41 BUN/Creatinine Ratio 19 % 11/06/18 04:41 Glucose 136 mg/dL (75-100) H 11/06/18 04:41 POC Glucose 95 (70-105) 11/07/18 11:26 Calcium 9.0 mg/dL (8.4-10.2) 11/06/18 04:41 Active Medications - Current Medications Current Medications: Generic Name Dose Route Start Last Admin Trade Name Freq PRN Reason Stop Dose Admin Acetaminophen 650 mg 11/03/18 17:31 Tylenol PO Q4H PRN Pain MILD(1-3)/Fever >100.5/MORROW Acetaminophen/Hydrocodone Bitart 1 each 11/03/18 18:00 11/07/18 06:11 [place] 5/325 PO 1 each Q6H [facility] Administration Alprazolam 0.5 mg 11/03/18 17:43 11/03/18 22:24 Xanax PO 0.5 mg TID PRN Administration Anxiety Aspirin 81 mg 11/06/18 13:00 11/07/18 09:17 Halfprin Ec PO 81 mg QDAY [facility] Administration Atorvastatin Calcium 40 mg 11/03/18 22:00 11/06/18 21:33 Lipitor PO 40 mg QHS [facility] Administration Clopidogrel Bisulfate 75 mg 11/07/18 10:00 11/07/18 09:16 Plavix PO 75 mg QDAY [facility] Administration Dextrose 50 ml 11/03/18 19:31 D50w (25gm) Syringe IV PRN PRN Hypoglycemia Digoxin 0.25 mg 11/04/18 17:00 11/06/18 17:18 Lanoxin PO 0.25 mg DAILY@1700 [facility] Administration Diltiazem HCl 60 mg 11/03/18 18:00 11/07/18 06:10 Cardizem PO 60 mg Q6HR [facility] Administration Enoxaparin Sodium 40 mg 11/06/18 22:00 11/06/18 21:28 Lovenox SUB-Q 40 mg QDAY@2200 [facility] Administration Famotidine 20 mg 11/03/18 22:00 11/07/18 09:18 Pepcid PO 20 mg BID [facility] Administration Furosemide 40 mg 11/04/18 10:00 11/07/18 09:16 Lasix PO 40 mg QDAY [facility] Administration Gabapentin 800 mg 11/03/18 20:00 11/07/18 08:00 Neurontin PO 800 mg TID [facility] Administration Hydromorphone HCl 0.5 mg 11/03/18 17:46 11/07/18 09:28 Dilaudid IV 0.5 mg Q3H PRN Administration Pain , Severe (7-10) Sodium Chloride 500 mls @ 50 mls/hr 11/06/18 10:00 11/06/18 10:45 Nacl 0.9% 500 Ml IV 100 mls DIRECT [facility] Administration Insulin Human Lispro 0 unit 11/03/18 22:00 11/07/18 07:30 Humalog SUB-Q 2 unit ACHS [facility] Administration Protocol Ondansetron HCl 4 mg 11/03/18 17:31 Zofran IV Q8H PRN Nausea And Vomiting Prednisone 10 mg 11/04/18 10:00 11/07/18 09:17 Deltasone PO 10 mg DAILY [facility] Administration Sodium Chloride 10 ml 11/03/18 22:00 11/07/18 09:19 Sodium Chloride Flush Syringe 10 Ml IV 10 ml BID [facility] Administration Sodium Chloride 10 ml 11/03/18 17:31 Sodium Chloride Flush Syringe 10 Ml IV PRN PRN LINE FLUSH Nutrition/Malnutrition Assess - Dietary Evaluation Nutrition/Malnutrition Findings: Nutrition Notes Start: 11/04/18 12:35 Freq: Status: Active Protocol: Document 11/04/18 12:35 DUTCH (Rec: 11/04/18 12:41 DUTCH [email or web address]) Nutrition Notes Need for Assessment generated from: accessioner,MST Initial or Follow up Brief Note Current Diagnosis COPD,Diabetes,Hypertension, Heart Failure,Respiratory Failure,Hyperlipidemia Other Pertinent Diagnosis (L) thigh cellulitis, LE pain, (R) foot ulcer, Limb ischemia , PVD Current Diet Consistent CHO Labs/Tests BG 152 Pertinent Medications Lasix, Prednisone Height 5 ft 7 in Weight 108.862 kg [place] Body Weight (kg) 67.27 BMI 37.5 Weight Status Obese Subjective/Other Information Pt screened for skin risk ( Dell score: 20) and malnutrition risk (wt loss). He is scheduled for revascularization procedure on 11/06/18. Burn Absent Trauma Absent Is patient on ventilator? No Is Patient Ambulatory and/or Out of Bed Yes REE-(Blevins-St. Jeor-ambulatory/OOB) [ 2420.925 NUTR.[id number]] Kcal/Kg value to use for calculation 18 Approximate Energy Requirements Using 1960 kcal/Kg Calculation Used for Recommendations Kcal/kg Additional Notes Pro needs 1.25-1.5g/kg adjBW: 110-132g/day Fluid needs 1ml/kcal Nutrition Intervention Follow-Up By: 11/07/18 Additional Comments F/U: intakes, need for ONS ( Glucerna and Jonathan) after procedure, wt assessment
--- NOTE | 2018-11-07 12:20 | Progress Note ---
Assessment and Plan Patient status post left lower extremity revascularization. His preoperative symptoms are resolving. He will need physical therapy to return to activities of daily living prior to discharge. Subjective Date of service: 11/07/18 Principal diagnosis: PVD Interval history: Patient status post left lower extremity revascularization procedure for a left radial approach. The patient's left radial artery has palpable pulse district to the puncture site. The patient states that his leg feels better. Minimal reperfusion edema. He is ambulated with nursing assistance. Objective - Constitutional Vitals: Vital Signs - 12hr 11/07/18 11/07/18 11/07/18 00:35 05:41 06:10 Temperature 97.6 F Pulse Rate 66 67 67 Respiratory 18 Rate Blood Pressure 123/70 131/78 131/78 O2 Sat by Pulse 91 Oximetry General appearance: Present: no acute distress - EENT Eyes: EOM intact ENT: hearing intact - Neck Neck: supple, normal ROM - Respiratory Respiratory effort: normal Extremities: abnormal - Gastrointestinal General gastrointestinal: Present: deferred Rectal Exam: deferred - Genitourinary Male genitourinary: deferred - Psychiatric Psychiatric: cooperative - Labs CBC & Chem 7: 11/04/18 05:29 11/06/18 04:41 Labs: Abnormal lab results 11/06/18 11/06/18 11/06/18 Range/Units 14:16 16:00 21:05 POC Glucose 281 H 230 H 154 H (70-105) 11/07/18 Range/Units 07:46 POC Glucose 162 H (70-105) Medications & Allergies - Medications Allergies/Adverse Reactions: Allergies ketorolac tromethamine [From Toradol] Allergy (Verified 01/31/17 05:38) Vomiting nausea/vomiting tramadol Allergy (Verified 01/31/17 05:38) Vomiting nausea/vomiting Home Medications: Home Medications Medication Instructions Recorded Confirmed Last Taken Type ALPRAZolam [Xanax TAB] 0.5 mg PO TID PRN #10 tablet 11/17/17 08/26/18 Unknown Rx AtorvaSTATin [Lipitor] 40 mg PO QHS #30 11/17/17 08/26/18 11/14/17 Rx metFORMIN [Glucophage] 500 mg PO BID tablet 11/17/17 08/26/18 Unknown Rx Gabapentin [Neurontin] 800 mg PO TID 08/02/18 08/26/18 Unknown History Famotidine [Pepcid] 20 mg PO BID #60 tablet 08/15/18 08/26/18 Unknown Rx HYDROcodone/ACETAMINOPHEN 1 each PO Q6H #10 tablet 08/15/18 08/26/18 Unknown Rx [Hydrocodone-Acetamin 5-325 mg] Sildenafil [Revatio] 20 mg PO TID 30 Days tablet 08/15/18 08/26/18 Unknown Rx Sulfamethoxazole/Trimethoprim 1 each PO DAILY 30 Days tablet 08/15/18 08/26/18 Unknown Rx [Bactrim DS TAB] Digoxin [Lanoxin] 0.25 mg PO DAILY@1700 #30 tablet 09/01/18 Unknown Rx Furosemide [Lasix TAB] 40 mg PO QDAY #30 tablet 09/01/18 Unknown Rx Insulin Glargine,Hum.rec.anlog 35 unit SQ BID #1 vial 09/01/18 Unknown Rx [Lantus] Warfarin [Coumadin] 5 mg PO DAILY@1700 #30 tablet 09/01/18 Unknown Rx dilTIAZem [Cardizem] 60 mg PO Q6HR #120 tablet 09/01/18 Unknown Rx predniSONE [Deltasone] 10 mg PO DAILY 4 Days tablet 09/01/18 Unknown Rx predniSONE [Deltasone] 20 mg PO QDAY 4 Days tab 09/01/18 Unknown Rx predniSONE [Deltasone] 40 mg PO DAILY 4 Days tablet 09/01/18 Unknown Rx predniSONE [Deltasone] 60 mg PO QDAY 4 Days tab 09/01/18 Unknown Rx Active Medications: Generic Name Dose Route Start Last Admin Trade Name Freq PRN Reason Stop Dose Admin Acetaminophen 650 mg 11/03/18 17:31 Tylenol PO Q4H PRN Pain MILD(1-3)/Fever >100.5/MORROW Acetaminophen/Hydrocodone Bitart 1 each 11/03/18 18:00 11/07/18 06:11 [place] 5/325 PO 1 each Q6H RAJAT Administration Alprazolam 0.5 mg 11/03/18 17:43 11/03/18 22:24 Xanax PO 0.5 mg TID PRN Administration Anxiety Aspirin 81 mg 11/06/18 13:00 11/07/18 09:17 Halfprin Ec PO 81 mg QDAY RAJAT Administration Atorvastatin Calcium 40 mg 11/03/18 22:00 11/06/18 21:33 Lipitor PO 40 mg QHS RAJAT Administration Clopidogrel Bisulfate 75 mg 11/07/18 10:00 11/07/18 09:16 Plavix PO 75 mg QDAY RAJAT Administration Dextrose 50 ml 11/03/18 19:31 D50w (25gm) Syringe IV PRN PRN Hypoglycemia Digoxin 0.25 mg 11/04/18 17:00 11/06/18 17:18 Lanoxin PO 0.25 mg DAILY@1700 RAJAT Administration Diltiazem HCl 60 mg 11/03/18 18:00 11/07/18 06:10 Cardizem PO 60 mg Q6HR RAJAT Administration Enoxaparin Sodium 40 mg 11/06/18 22:00 11/06/18 21:28 Lovenox SUB-Q 40 mg QDAY@2200 RAJAT Administration Famotidine 20 mg 11/03/18 22:00 11/07/18 09:18 Pepcid PO 20 mg BID RAJAT Administration Furosemide 40 mg 11/04/18 10:00 11/07/18 09:16 Lasix PO 40 mg QDAY RAJAT Administration Gabapentin 800 mg 11/03/18 20:00 11/07/18 08:00 Neurontin PO 800 mg TID RAJAT Administration Hydromorphone HCl 0.5 mg 11/03/18 17:46 11/07/18 09:28 Dilaudid IV 0.5 mg Q3H PRN Administration Pain , Severe (7-10) Sodium Chloride 500 mls @ 50 mls/hr 11/06/18 10:00 11/06/18 10:45 Nacl 0.9% 500 Ml IV 100 mls DIRECT RAJAT Administration Insulin Human Lispro 0 unit 11/03/18 22:00 11/07/18 07:30 Humalog SUB-Q 2 unit ACHS RAJAT Administration Protocol Ondansetron HCl 4 mg 11/03/18 17:31 Zofran IV Q8H PRN Nausea And Vomiting Prednisone 10 mg 11/04/18 10:00 11/07/18 09:17 Deltasone PO 10 mg DAILY RAJAT Administration Sodium Chloride 10 ml 11/03/18 22:00 11/07/18 09:19 Sodium Chloride Flush Syringe 10 Ml IV 10 ml BID RAJAT Administration Sodium Chloride 10 ml 11/03/18 17:31 Sodium Chloride Flush Syringe 10 Ml IV PRN PRN LINE FLUSH
[2018-11-07] MEDS: COUMADIN PO SCH (17:46)
[2018-11-07] MEDS: LANOXIN PO SCH (17:46)
[2018-11-07] MEDS: LOVENOX SUB-Q SCH (21:37)
[2018-11-08] MEDS: CARDIZEM PO SCH ×5 (00:37→23:51)
[2018-11-08] MEDS: DILAUDID IV PRN ×5 (04:42→23:40)
[2018-11-08 06:24] LABS: INR 0.98 (0.87-1.13)
[2018-11-08] MEDS: HumaLOG SUB-Q SCH ×4 (08:56→22:46)
--- NOTE | 2018-11-08 09:28 | Event Note ---
Date: 11/08/18 Patient will need to followup with myself or Dr. Hendricks at [facility] in a week for revascularization of the right lower extremity to prevent right sided limb loss.
[2018-11-08] MEDS: NEURONTIN PO SCH ×3 (10:49→20:20)
[2018-11-08] MEDS: HALFPRIN EC PO SCH (10:49)
[2018-11-08] MEDS: PLAVIX PO SCH (10:49)
[2018-11-08] MEDS: PEPCID PO SCH ×3 (10:49→22:08)
[2018-11-08] MEDS: DELTASONE PO SCH (10:49)
[2018-11-08] MEDS: LASIX PO SCH (10:50)
[2018-11-08] MEDS: SODIUM CHLORIDE FLUSH SYRINGE 10 ML IV SCH ×2 (13:07→22:46)
--- NOTE | 2018-11-08 13:39 | Progress Note ---
Assessment and Plan Assessment and plan: 57-year-old man who presents with bilateral lower extremity pain 2 weeks. Is complaining of purulent draining wounds. 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 fib, tobacco dependence,, hyperlipidemia, peripheral arterial disease status post bypass and stents in his legs, partial left foot amputation arterial duplex of lower extremity; shows significant bilateral lower extremity disease involving all segments, CT A/P with run offs; Bilateral peripheral arterial disease Diagnosis Lower extremity arterial disease with critical limb ischemia Hypertension Diabetes ILD COPD A. fib Tobacco dependence Hyperlipidemia chronic Systolic CHF EF 40% Hypercoagulable states Plan Vascular surgery consults appreciated, -Sp LLE angioplasty 11/06, he also has chronic PAD on right which need to be addressed as an outpatient Optimize medications for chronic conditions -case dw dr Finn, dc lovenox, restart warfarin, bridge not required -Wound care consult and Gen surgery consult appreciated; sp Excisional debridement of left thigh wound, right foot and heel wound 11/07 -wound vac placed, needs wound vac set up at home prior to dc dvt prophylaxis fully anticoagulated History Interval history: He continues to complain of pain in bilateral lower extremities, it is improved Review of systems Constitutional: No fevers, no malaise, no joint pains CVS: No chest pain, no orthopnea, no dyspnea on exertion, no pedal edema GI: No abdominal pain, no diarrhea, no vomiting, no constipation Respiratory: No shortness of breath, no wheezing, no coughing Hospitalist Physical - Physical exam Narrative exam: General.: Appears well, no distress, nontoxic HEENT: Moist mucous membranes, extraocular muscles intact, no lymphadenopathy Neck: supple Cardiac: S1-S2 heard Lungs: clear to auscultation bilaterally Abdomen: soft , nontender, nondistended, bowel sounds positive Extremities: Patient has ulcerations in both lower extremities, poor pulses on right side, TM amputation of L foot Skin: ulcerations to BLE Neurologic: no gross focal deficits Psych: calm, and cooperative - Constitutional Vitals: Temp Pulse Resp BP Pulse Ox 98.9 F 72 22 136/78 95 11/08/18 11:26 11/08/18 13:09 11/08/18 11:26 11/08/18 13:09 11/08/18 11:26 General appearance: Present: mild distress Results - Labs CBC & Chem 7: 11/04/18 05:29 11/06/18 04:41 Labs: Laboratory Last Values WBC 8.0 K/mm3 (4.5-11.0) 11/04/18 05:29 RBC 4.24 M/mm3 (3.65-5.03) 11/04/18 05:29 Hgb 11.9 gm/dl (11.8-15.2) 11/04/18 05:29 Hct 37.4 % (35.5-45.6) 11/04/18 05:29 MCV 88 fl (84-94) 11/04/18 05:29 MCH 28 pg (28-32) 11/04/18 05:29 MCHC 32 % (32-34) 11/04/18 05:29 RDW 19.4 % (13.2-15.2) H 11/04/18 05:29 Plt Count 293 K/mm3 (140-440) 11/04/18 05:29 Lymph % (Auto) 12.7 % (13.4-35.0) L 11/04/18 05:29 [place] % (Auto) 8.0 % (0.0-7.3) H 11/04/18 05:29 Eos % (Auto) 2.8 % (0.0-4.3) 11/04/18 05:29 Baso % (Auto) 1.0 % (0.0-1.8) 11/04/18 05:29 Lymph # 1.0 K/mm3 (1.2-5.4) L 11/04/18 05:29 [place] # 0.6 K/mm3 (0.0-0.8) 11/04/18 05:29 Eos # 0.2 K/mm3 (0.0-0.4) 11/04/18 05:29 Baso # 0.1 K/mm3 (0.0-0.1) 11/04/18 05:29 Seg Neutrophils % 75.5 % (40.0-70.0) H 11/04/18 05:29 Seg Neutrophils # 6.1 K/mm3 (1.8-7.7) 11/04/18 05:29 PT 13.6 Sec. (12.2-14.9) 11/08/18 05:19 INR 0.98 (0.87-1.13) 11/08/18 05:19 APTT 34.8 Sec. (24.2-36.6) 11/06/18 04:41 Sodium 137 mmol/L (137-145) 11/06/18 04:41 Potassium 4.8 mmol/L (3.6-5.0) 11/06/18 04:41 Chloride 102.9 mmol/L (98-107) 11/06/18 04:41 Carbon Dioxide 22 mmol/L (22-30) 11/06/18 04:41 Anion Gap 17 mmol/L 11/06/18 04:41 BUN 19 mg/dL (9-20) 11/06/18 04:41 Creatinine 1.0 mg/dL (0.8-1.5) 11/06/18 04:41 Estimated GFR > 60 ml/min 11/06/18 04:41 BUN/Creatinine Ratio 19 % 11/06/18 04:41 Glucose 136 mg/dL (75-100) H 11/06/18 04:41 POC Glucose 178 (70-105) H 11/08/18 11:32 Calcium 9.0 mg/dL (8.4-10.2) 11/06/18 04:41 Active Medications - Current Medications Current Medications: Generic Name Dose Route Start Last Admin Trade Name Freq PRN Reason Stop Dose Admin Acetaminophen 650 mg 11/03/18 17:31 Tylenol PO Q4H PRN Pain MILD(1-3)/Fever >100.5/MORROW Acetaminophen/Hydrocodone Bitart 1 each 11/07/18 14:40 [place] 10/325 PO Q6H PRN Pain, Moderate (4-6) Alprazolam 0.5 mg 11/03/18 17:43 11/03/18 22:24 Xanax PO 0.5 mg TID PRN Administration Anxiety Aspirin 81 mg 11/06/18 13:00 11/08/18 10:49 Halfprin Ec PO 81 mg QDAY RAJAT Administration Atorvastatin Calcium 40 mg 11/03/18 22:00 11/07/18 21:34 Lipitor PO 40 mg QHS RAJAT Administration Clopidogrel Bisulfate 75 mg 11/07/18 10:00 11/08/18 10:49 Plavix PO 75 mg QDAY RAJAT Administration Dextrose 50 ml 11/03/18 19:31 D50w (25gm) Syringe IV PRN PRN Hypoglycemia Digoxin 0.25 mg 11/04/18 17:00 11/07/18 17:46 Lanoxin PO 0.25 mg DAILY@1700 RAJAT Administration Diltiazem HCl 60 mg 11/03/18 18:00 11/08/18 13:09 Cardizem PO 60 mg Q6HR RAJAT Administration Enoxaparin Sodium 40 mg 11/06/18 22:00 11/07/18 21:37 Lovenox SUB-Q Not Given QDAY@2200 [facility] Famotidine 20 mg 11/03/18 22:00 11/08/18 10:49 Pepcid PO 20 mg BID RAJAT Administration Furosemide 40 mg 11/04/18 10:00 11/08/18 10:50 Lasix PO 40 mg QDAY RAJAT Administration Gabapentin 800 mg 11/03/18 20:00 11/08/18 10:49 Neurontin PO 800 mg TID RAJAT Administration Hydromorphone HCl 1 mg 11/07/18 14:41 11/08/18 10:56 Dilaudid IV 1 mg Q4H PRN Administration Pain , Severe (7-10) Sodium Chloride 500 mls @ 50 mls/hr 11/06/18 10:00 11/06/18 10:45 Nacl 0.9% 500 Ml IV 100 mls DIRECT RAJAT Administration Insulin Human Lispro 0 unit 11/03/18 22:00 11/08/18 13:07 Humalog SUB-Q 2 unit ACHS RAJAT Administration Protocol Ondansetron HCl 4 mg 11/03/18 17:31 Zofran IV Q8H PRN Nausea And Vomiting Prednisone 10 mg 11/04/18 10:00 11/08/18 10:49 Deltasone PO 10 mg DAILY RAJAT Administration Sodium Chloride 10 ml 11/03/18 22:00 11/08/18 13:07 Sodium Chloride Flush Syringe 10 Ml IV 10 ml BID RAJAT Administration Sodium Chloride 10 ml 11/03/18 17:31 11/08/18 10:50 Sodium Chloride Flush Syringe 10 Ml IV 10 ml PRN PRN Administration LINE FLUSH Warfarin Sodium 7.5 mg 11/07/18 17:00 11/07/18 17:46 Coumadin PO 7.5 mg DAILY@1700 RAJAT Administration Nutrition/Malnutrition Assess - Dietary Evaluation Nutrition/Malnutrition Findings: Nutrition Notes Start: 11/04/18 12:35 Freq: Status: Active Protocol: Document 11/08/18 11:40 LM (Rec: 11/08/18 11:46 LM [id number]) Co-Sign 11/08/18 11:40 LP Nutrition Notes Initial or Follow up Brief Note Subjective/Other Information Consult for Coumadin education . #1 Nutrition Diagnosis Food and nutrition-related knowledge deficit Etiology Pt on coumadin As Evidenced by Signs and Symptoms Pt statement of being unaware of vitamin k interaction Nutrition Intervention Teaching Recipient Patient Learning Readiness Good Teaching Methods Discussion,Handout Response to Teaching Verbalize understanding Education Handouts Provided Vitamin K and Medciations Barriers to Learning Motivation RD phone number provided Yes Patient aware of follow up options Yes Revisit per MD consult or patient Sign Off request:
--- NOTE | 2018-11-08 14:55 | Progress Note ---
Assessment and Plan 57 yo M s/p debridement of open L thigh wound and right LE wounds, POD 1 Plan: 1. continue wound vac to L thigh wound 2. RLE wound care per workers' compensation claims supervisor 3. f/u cultures 4. c/w abx Will follow up on Tuesday for wound vac change Thank you, please call with questions Subjective Date of service: 11/08/18 Narrative: Pt seen and examined. No complaints. Objective Vital Signs - 12hr 11/08/18 11/08/18 11/08/18 04:42 05:12 05:26 Temperature 97.9 F Pulse Rate 43 L Respiratory 22 17 20 Rate Blood Pressure 132/67 O2 Sat by Pulse 96 Oximetry 11/08/18 11/08/18 11/08/18 06:08 11:26 13:09 Temperature 98.9 F Pulse Rate 43 L 72 72 Respiratory 22 Rate Blood Pressure 132/67 136/78 136/78 O2 Sat by Pulse 95 Oximetry - General physical appearance Narrative Exam: Gen: AAOx3. NAD CV: s1, S2+ resp: even and unlabored Ext: L thigh wound vac in place - no leak, good seal. RLE dressing c/d/i - Labs 11/04/18 05:29 11/06/18 04:41
[2018-11-08] MEDS: SOLU-Medrol IV SCH ×3 (17:41→22:09)
[2018-11-08] MEDS: COUMADIN PO SCH (17:44)
--- NOTE | 2018-11-08 18:09 | Consultation ---
History of Present Illness Consult date: 11/08/18 Reason for consult: dyspnea, cough, COPD History of present illness: PULMONARY AND C RITICAL CARE CONSULTATION DR. ROSE THANK YOU FOR ASKING US TO PARTICIPATE IN THE CARE OF THIS PATIENT. 57 YO Male with COPD, Diastolic CHF, Chronic Respiratory Failure on 2L Home Oxygen via NC, HTN, DM, OA, HLD, DVT not current on anticoagulation, PVD presents to ED for evaluation. Pt states that he has experienced Leg pain over the past 2 weeks, with worsening symptoms over the same time frame. Pt also reports Left thigh ulcer with purulent drainage, and redness to surrounding area as well as pain to the affected area. Pt states that his left thigh pain is 9/10, constant, worse with movement. Pt acknowledges rest pain. EMS notified and upon arrival the patient was found to be in distress and transported to [facility] ED. Pt seen and evaluated in ED and found to have Left thigh Cellulitis, as well as PVD with Lower limb Ischemia. Vascular/IR Service consulted in ED. Pending surgical intervention in AM. Pt denies fever, chills, palpitations, NVD, Trauma, Hemoptysis, BRBPR, Productive Cough, or recent ill contacts. PATIENT PRESENTLY ON 5 LITRES O2. O2 SATURATION 92%. Patient is on I/V solumedrol and aerosolized bronchodilators. Patient is denied smoking, alcohol or drug abuse at this time. Past History Past Medical History: COPD (w/ 2L home oxygen), diabetes, DVT, heart failure, hypertension, hyperlipidemia, PVD, other (OA) Past Surgical History: cholecystectomy, Other (left leg vein bypass/stents/TMA/I&D thigh seroma) Social history: single. denies: smoking, alcohol abuse, prescription drug abuse Family history: diabetes, hypertension Medications and Allergies Allergies Allergy/AdvReac Type Severity Reaction Status Date / Time ketorolac tromethamine Allergy Vomiting Verified 01/31/17 05:38 [From Toradol] tramadol Allergy Vomiting Verified 01/31/17 05:38 Home Medications Medication Instructions Recorded Confirmed Last Taken Type ALPRAZolam [Xanax TAB] 0.5 mg PO TID PRN #10 tablet 11/17/17 08/26/18 Unknown Rx AtorvaSTATin [Lipitor] 40 mg PO QHS #30 11/17/17 08/26/18 11/14/17 Rx metFORMIN [Glucophage] 500 mg PO BID tablet 11/17/17 08/26/18 Unknown Rx Gabapentin [Neurontin] 800 mg PO TID 08/02/18 08/26/18 Unknown History Famotidine [Pepcid] 20 mg PO BID #60 tablet 08/15/18 08/26/18 Unknown Rx HYDROcodone/ACETAMINOPHEN 1 each PO Q6H #10 tablet 08/15/18 08/26/18 Unknown Rx [Hydrocodone-Acetamin 5-325 mg] Sildenafil [Revatio] 20 mg PO TID 30 Days tablet 08/15/18 08/26/18 Unknown Rx Sulfamethoxazole/Trimethoprim 1 each PO DAILY 30 Days tablet 08/15/18 08/26/18 Unknown Rx [Bactrim DS TAB] Digoxin [Lanoxin] 0.25 mg PO DAILY@1700 #30 tablet 09/01/18 Unknown Rx Furosemide [Lasix TAB] 40 mg PO QDAY #30 tablet 09/01/18 Unknown Rx Insulin Glargine,Hum.rec.anlog 35 unit SQ BID #1 vial 09/01/18 Unknown Rx [Lantus] Warfarin [Coumadin] 5 mg PO DAILY@1700 #30 tablet 09/01/18 Unknown Rx dilTIAZem [Cardizem] 60 mg PO Q6HR #120 tablet 09/01/18 Unknown Rx predniSONE [Deltasone] 10 mg PO DAILY 4 Days tablet 09/01/18 Unknown Rx predniSONE [Deltasone] 20 mg PO QDAY 4 Days tab 09/01/18 Unknown Rx predniSONE [Deltasone] 40 mg PO DAILY 4 Days tablet 09/01/18 Unknown Rx predniSONE [Deltasone] 60 mg PO QDAY 4 Days tab 09/01/18 Unknown Rx Active Meds: Active Medications Acetaminophen (Tylenol) 650 mg PO Q4H PRN PRN Reason: Pain MILD(1-3)/Fever >100.5/MORROW Acetaminophen/Hydrocodone Bitart ([place] 10/325) 1 each PO Q6H PRN PRN Reason: Pain, Moderate (4-6) Albuterol/Ipratropium (Duoneb *Not For Prn Use*) 1 ampul IH Q6HRT [facility] Alprazolam (Xanax) 0.5 mg PO TID PRN PRN Reason: Anxiety Last Admin: 11/03/18 22:24 Dose: 0.5 mg Documented by: Arformoterol Tartrate (Brovana Nebu) 15 mcg IH Q12HRT [facility] Aspirin (Halfprin Ec) 81 mg PO QDAY [facility] Last Admin: 11/08/18 10:49 Dose: 81 mg Documented by: Atorvastatin Calcium (Lipitor) 40 mg PO QHS [facility] Last Admin: 11/07/18 21:34 Dose: 40 mg Documented by: Budesonide (Pulmicort) 0.5 mg IH Q12HRT [facility] Clopidogrel Bisulfate (Plavix) 75 mg PO QDAY [facility] Last Admin: 11/08/18 10:49 Dose: 75 mg Documented by: Dextrose (D50w (25gm) Syringe) 50 ml IV PRN PRN PRN Reason: Hypoglycemia Digoxin (Lanoxin) 0.25 mg PO DAILY@1700 [facility] Last Admin: 11/07/18 17:46 Dose: 0.25 mg Documented by: Diltiazem HCl (Cardizem) 60 mg PO Q6HR [facility] Last Admin: 11/08/18 13:09 Dose: 60 mg Documented by: Enoxaparin Sodium (Lovenox) 40 mg SUB-Q QDAY@2200 [facility] Last Admin: 11/07/18 21:37 Dose: Not Given Documented by: Famotidine (Pepcid) 20 mg PO BID [facility] Last Admin: 11/08/18 10:49 Dose: 20 mg Documented by: Furosemide (Lasix) 40 mg PO QDAY [facility] Last Admin: 11/08/18 10:50 Dose: 40 mg Documented by: Gabapentin (Neurontin) 800 mg PO TID [facility] Last Admin: 11/08/18 14:58 Dose: 800 mg Documented by: Hydromorphone HCl (Dilaudid) 1 mg IV Q4H PRN PRN Reason: Pain , Severe (7-10) Last Admin: 11/08/18 14:57 Dose: 1 mg Documented by: Sodium Chloride (Nacl 0.9% 500 Ml) 500 mls @ 50 mls/hr IV DIRECT [facility] Last Admin: 11/06/18 10:45 Dose: 100 mls Documented by: Insulin Human Lispro (Humalog) 0 unit SUB-Q ACHS [facility]; Protocol Last Admin: 11/08/18 17:40 Dose: 3 unit Documented by: Methylprednisolone Sodium Succinate (Solu-Medrol) 40 mg IV Q8HR [facility] Last Admin: 11/08/18 17:41 Dose: 40 mg Documented by: Ondansetron HCl (Zofran) 4 mg IV Q8H PRN PRN Reason: Nausea And Vomiting Prednisone (Deltasone) 10 mg PO DAILY [facility] Last Admin: 11/08/18 10:49 Dose: 10 mg Documented by: Sodium Chloride (Sodium Chloride Flush Syringe 10 Ml) 10 ml IV BID [facility] Last Admin: 11/08/18 13:07 Dose: 10 ml Documented by: Sodium Chloride (Sodium Chloride Flush Syringe 10 Ml) 10 ml IV PRN PRN PRN Reason: LINE FLUSH Last Admin: 11/08/18 10:50 Dose: 10 ml Documented by: Warfarin Sodium (Coumadin) 7.5 mg PO DAILY@1700 [facility] Last Admin: 11/08/18 17:44 Dose: 7.5 mg Documented by: Review of Systems All systems: negative Physical Examination Vital signs: Vital Signs Pulse Resp 81 15 11/03/18 14:44 11/03/18 14:44 General appearance: no acute distress, alert Eyes: non-icteric ENT: oropharynx moist Neck: supple, no JVD Ascultation: Bilateral: diminished breath sounds Cardiovascular: regular rate and rhythm Gastrointestinal: soft, non-tender Extremities: other (Ischemia.) Musculoskeletal: other (Wound in the left thigh.) Gait: poor gait normal mental status, non-focal exam, pupils equal and round, CN II-XII normal mood appropriate Results - Laboratory Findings CBC and BMP: 11/04/18 05:29 11/06/18 04:41 PT/INR, D-dimer PT 13.6 Sec. (12.2-14.9) 11/08/18 05:19 INR 0.98 (0.87-1.13) 11/08/18 05:19 Abnormal lab findings: Abnormal Labs 11/03/18 11/03/18 11/03/18 15:35 15:35 22:48 RDW 19.0 H Lymph % (Auto) 8.7 L [place] % (Auto) Lymph # 0.6 L Seg Neutrophils % 84.5 H Chloride Creatinine Glucose 174 H POC Glucose 144 H Calcium 11/04/18 11/04/18 11/04/18 05:29 05:29 07:59 RDW 19.4 H Lymph % (Auto) 12.7 L [place] % (Auto) 8.0 H Lymph # 1.0 L Seg Neutrophils % 75.5 H Chloride 108.6 H Creatinine 0.7 L Glucose 152 H POC Glucose 158 H Calcium 8.2 L 11/04/18 11/04/18 11/04/18 12:35 16:25 21:09 RDW Lymph % (Auto) [place] % (Auto) Lymph # Seg Neutrophils % Chloride Creatinine Glucose POC Glucose 197 H 125 H 210 H Calcium 11/05/18 11/05/18 11/05/18 08:20 12:21 15:35 RDW Lymph % (Auto) [place] % (Auto) Lymph # Seg Neutrophils % Chloride Creatinine Glucose POC Glucose 150 H 183 H 180 H Calcium 11/05/18 11/06/18 11/06/18 21:49 04:41 07:44 RDW Lymph % (Auto) [place] % (Auto) Lymph # Seg Neutrophils % Chloride Creatinine Glucose 136 H POC Glucose 231 H 127 H Calcium 11/06/18 11/06/18 11/06/18 14:16 16:00 21:05 RDW Lymph % (Auto) [place] % (Auto) Lymph # Seg Neutrophils % Chloride Creatinine Glucose POC Glucose 281 H 230 H 154 H Calcium 11/07/18 11/07/18 11/07/18 07:46 16:27 21:13 RDW Lymph % (Auto) [place] % (Auto) Lymph # Seg Neutrophils % Chloride Creatinine Glucose POC Glucose 162 H 232 H 260 H Calcium 11/08/18 11/08/18 11/08/18 07:45 11:32 16:58 RDW Lymph % (Auto) [place] % (Auto) Lymph # Seg Neutrophils % Chloride Creatinine Glucose POC Glucose 118 H 178 H 242 H Calcium - Diagnostic Findings Chest x-ray: report reviewed (Pulmonary interstial edema vs infection. small left pleural effusion.), image reviewed Assessment and Plan 57 YO Male with COPD, Diastolic CHF, Chronic Respiratory Failure on 2L Home Oxygen via [place], HTN, DM, OA, HLD, DVT not current on anticoagulation, PVD presents to ED for evaluation. Pt states that he has experienced Leg pain over the past 2 weeks, with worsening symptoms over the same time frame. Pt also reports Left thigh ulcer with purulent drainage, and redness to surrounding area as well as pain to the affected area. Pt states that his left thigh pain is 9/10, constant, worse with movement. Pt acknowledges rest pain. EMS notified and upon arrival the patient was found to be in distress and transported to [facility] ED. Pt seen and evaluated in ED and found to have Left thigh Cellulitis, as well as PVD with Lower limb Ischemia. Vascular/IR Service consulted in ED. Pending surgical intervention in AM. Pt denies fever, chills, palpitations, NVD, Trauma, Hemoptysis, BRBPR, Productive Cough, or recent ill contacts. - Patient Problems (1) DVT (deep venous thrombosis) Current Visit: Yes Status: Acute Plan to address problem: Patient is on Warfarin. (2) Acute and chronic respiratory failure ([id number]) Current Visit: No Status: Acute Qualifiers: Respiratory failure complication: hypoxia Qualified Code(s): J96.21 - Acute and chronic respiratory failure with hypoxia Plan to address problem: O2 5 litres. Albuterol/atrovent aerosol treatments q 6 hours. Continue I/V solumedrol. Continue Pepcid. Continue warfarin. (3) COPD exacerbation Current Visit: No Status: Acute Plan to address problem: O2 5 litres. Albuterol/atrovent aerosol treatments q 6 hours. Continue I/V solumedrol. Continue Pepcid. Patient is on warfarin. (4) Acute exacerbation of CHF (congestive heart failure) Current Visit: No Status: Acute Qualifiers: Heart failure type: diastolic Qualified Code(s): I50.33 - Acute on chronic diastolic (congestive) heart failure Plan to address problem: Management as per primary care and cardiology. (5) PVD (peripheral vascular disease) Current Visit: Yes Status: Acute Plan to address problem: Management as per vascular. (6) Unspecified open wound, left thigh, initial encounter Current Visit: Yes Status: Acute Plan to address problem: Patient has wound drain. Management as per primary care and wound care. (7) Hypertension Current Visit: No Status: Chronic Qualifiers: Hypertension type: essential hypertension Qualified Code(s): I10 - Essential (primary) hypertension Plan to address problem: Management as per primary care. (8) Type 2 diabetes mellitus Current Visit: No Status: Chronic Qualifiers: Diabetes mellitus roasterman insulin use: without half-way use Plan to address problem: Management as per primary care.
[2018-11-08] MEDS: LANOXIN PO SCH (18:57)
--- NOTE | 2018-11-08 19:02 | XRay Report ---
PROCEDURE: XR CHEST ROUTINE 2V TECHNIQUE: Frontal and lateral chest radiographs HISTORY: sob COMPARISONS: 08/26/2018 FINDINGS: No mediastinal shift. Cardiac silhouette is not enlarged for portable technique. Blunting of the lef t costophrenic angle and diffuse basilar interstitial prominence. No pneumothorax. IMPRESSION: Pulmonary interstitial edema versus infection suggested with small left pleural effusion This document is electronically signed by Julian Feldman MD., November 08 2018 06:59:57 PM ET
[2018-11-08] MEDS: DUONEB *Not for PRN Use IH SCH (19:52)
[2018-11-08] MEDS: BROVANA NEBU IH SCH (19:52)
[2018-11-08] MEDS: PULMICORT IH SCH (19:57)
[2018-11-08] MEDS: NORCO 10/325 PO PRN (20:20)
[2018-11-08] MEDS: XANAX PO PRN (20:20)
[2018-11-08] MEDS: LOVENOX SUB-Q SCH ×2 (20:22→22:08)
[2018-11-09] MEDS: DUONEB *Not for PRN Use IH SCH ×4 (02:40→19:45)
[2018-11-09 05:31] LABS: INR 1.12 (0.87-1.13)
[2018-11-09] MEDS: DILAUDID IV PRN ×4 (06:17→22:23)
[2018-11-09] MEDS: SOLU-Medrol IV SCH ×3 (06:17→21:57)
[2018-11-09] MEDS: CARDIZEM PO SCH ×3 (06:28→19:29)
[2018-11-09] MEDS: PULMICORT IH SCH ×2 (07:54→19:43)
[2018-11-09] MEDS: BROVANA NEBU IH SCH ×2 (07:54→19:43)
[2018-11-09] MEDS: HumaLOG SUB-Q SCH ×3 (08:51→19:31)
[2018-11-09] MEDS: NEURONTIN PO SCH ×3 (08:52→21:56)
[2018-11-09] MEDS: DELTASONE PO SCH (10:50)
[2018-11-09] MEDS: SODIUM CHLORIDE FLUSH SYRINGE 10 ML IV SCH ×2 (10:51→22:05)
[2018-11-09] MEDS: PLAVIX PO SCH (10:51)
[2018-11-09] MEDS: HALFPRIN EC PO SCH (10:51)
[2018-11-09] MEDS: LASIX PO SCH (10:51)
[2018-11-09] MEDS: PEPCID PO SCH ×2 (10:51→21:56)
--- NOTE | 2018-11-09 12:09 | Consultation ---
History of Present Illness - Reason for Consult Consult date: 11/09/18 MRSA in wound culture Requesting physician: SRIDEVI ROSE - History of Present Illness The patient is a 57-year-old male with diabetes, hypertension, history of left leg DVT, arthritis, COPD, pulmonary hypertension, active tobacco use, peripheral arterial disease, status post left foot transmetatarsal amputation was admitted to the hospital with complaints of worsening wounds on his lower extremities. Arterial duplex and CTA with runoff showed extensive bilateral lower extremity peripheral vascular disease. Patient was seen by vascular surgery, on 11/06/2018, patient underwent left lower extremity angioplasty. On 11/07/2018, patient underwent bedside excisional debridement of left thigh wound, right foot wound and healed wound by general surgery. Cultures from debridement grew MRSA and Acinetobacter, hence infectious diseases was consulted. He has been afebrile throughout hospitalization. Currently, complains of pain in bilateral lower extremities more on the left side. He now has a wound VAC in place. Patient continues to smoke, currently down to 3 cigarettes per day. Has any alcohol use. Review of Systems: General: no fevers,chills or rigors HEENT: no new visual disturbance Respiratory: No cough, sputum, hemoptysis or shortness of breath Cardiovascular: No chest pain, syncope Gastrointestinal: No nausea, vomiting or diarrhea Genitourinary: No dysuria or hematuria Musculoskeletal: No new or worsening neck pain or back pain. Pain in bilateral legs. Neurologic: No headaches, seizures Hematologic: No easy bruising or bleeding Endocrine: No night sweats or acute weight loss Skin: negative for rash, jaundice Psychiatric: No suicidal or homicidal ideation Past History Past Medical History: COPD (w/ 2L home oxygen), diabetes, DVT, heart failure, hypertension, hyperlipidemia, PVD, other (OA) Past Surgical History: cholecystectomy, Other (left leg vein bypass/stents/TMA/I&D thigh seroma) Social history: single. denies: smoking, alcohol abuse, prescription drug abuse Family history: diabetes, hypertension Medications and Allergies Allergies Allergy/AdvReac Type Severity Reaction Status Date / Time ketorolac tromethamine Allergy Vomiting Verified 01/31/17 05:38 [From Toradol] tramadol Allergy Vomiting Verified 01/31/17 05:38 Home Medications Medication Instructions Recorded Confirmed Last Taken Type ALPRAZolam [Xanax TAB] 0.5 mg PO TID PRN #10 tablet 04/19/18 04/10/19 Unknown Rx AtorvaSTATin [Lipitor] 40 mg PO QHS #30 11/17/17 11/08/18 11/14/17 Rx Gabapentin [Neurontin] 800 mg PO TID 08/02/18 11/08/18 Unknown History HYDROcodone/ACETAMINOPHEN 1 each PO Q6H #10 tablet 08/15/18 11/08/18 Unknown Rx [Hydrocodone-Acetamin 5-325 mg] metFORMIN [Glucophage] 500 mg PO BID 11/08/18 11/08/18 Unknown History Active Meds: Active Medications Acetaminophen (Tylenol) 650 mg PO Q4H PRN PRN Reason: Pain MILD(1-3)/Fever >100.5/MORROW Acetaminophen/Hydrocodone Bitart ([place] 10/325) 1 each PO Q6H PRN PRN Reason: Pain, Moderate (4-6) Last Admin: 11/08/18 20:20 Dose: 1 each Documented by: Albuterol/Ipratropium (Duoneb *Not For Prn Use*) 1 ampul IH Q6HRT [facility] Last Admin: 11/09/18 07:54 Dose: 1 ampul Documented by: Alprazolam (Xanax) 0.5 mg PO TID PRN PRN Reason: Anxiety Last Admin: 11/08/18 20:20 Dose: 0.5 mg Documented by: Arformoterol Tartrate (Brovana Nebu) 15 mcg IH Q12HRT [facility] Last Admin: 11/09/18 07:54 Dose: 15 mcg Documented by: Aspirin (Halfprin Ec) 81 mg PO QDAY [facility] Last Admin: 11/09/18 10:51 Dose: 81 mg Documented by: Atorvastatin Calcium (Lipitor) 40 mg PO QHS [facility] Last Admin: 11/08/18 22:08 Dose: Not Given Documented by: Budesonide (Pulmicort) 0.5 mg IH Q12HRT [facility] Last Admin: 11/09/18 07:54 Dose: 0.5 mg Documented by: Clopidogrel Bisulfate (Plavix) 75 mg PO QDAY [facility] Last Admin: 11/09/18 10:51 Dose: 75 mg Documented by: Dextrose (D50w (25gm) Syringe) 50 ml IV PRN PRN PRN Reason: Hypoglycemia Digoxin (Lanoxin) 0.25 mg PO DAILY@1700 [facility] Last Admin: 11/08/18 18:57 Dose: 0.25 mg Documented by: Diltiazem HCl (Cardizem) 60 mg PO Q6HR [facility] Last Admin: 11/09/18 06:28 Dose: Not Given Documented by: Enoxaparin Sodium (Lovenox) 40 mg SUB-Q QDAY@2200 [facility] Last Admin: 11/08/18 22:08 Dose: Not Given Documented by: Famotidine (Pepcid) 20 mg PO BID [facility] Last Admin: 11/09/18 10:51 Dose: 20 mg Documented by: Furosemide (Lasix) 40 mg PO QDAY [facility] Last Admin: 11/09/18 10:51 Dose: 40 mg Documented by: Gabapentin (Neurontin) 800 mg PO TID [facility] Last Admin: 11/09/18 08:52 Dose: 800 mg Documented by: Hydromorphone HCl (Dilaudid) 1 mg IV Q4H PRN PRN Reason: Pain , Severe (7-10) Last Admin: 11/09/18 10:50 Dose: 1 mg Documented by: Sodium Chloride (Nacl 0.9% 500 Ml) 500 mls @ 50 mls/hr IV DIRECT [facility] Last Admin: 11/06/18 10:45 Dose: 100 mls Documented by: Insulin Glargine (Lantus) 10 units SUB-Q QHS [facility] Insulin Human Lispro (Humalog) 0 unit SUB-Q ACHS [facility]; Protocol Last Admin: 11/09/18 08:51 Dose: 6 unit Documented by: Methylprednisolone Sodium Succinate (Solu-Medrol) 40 mg IV Q8HR [facility] Last Admin: 11/09/18 06:17 Dose: 40 mg Documented by: Ondansetron HCl (Zofran) 4 mg IV Q8H PRN PRN Reason: Nausea And Vomiting Prednisone (Deltasone) 10 mg PO DAILY [facility] Last Admin: 11/09/18 10:50 Dose: 10 mg Documented by: Sodium Chloride (Sodium Chloride Flush Syringe 10 Ml) 10 ml IV BID [facility] Last Admin: 11/09/18 10:51 Dose: 10 ml Documented by: Sodium Chloride (Sodium Chloride Flush Syringe 10 Ml) 10 ml IV PRN PRN PRN Reason: LINE FLUSH Last Admin: 11/08/18 10:50 Dose: 10 ml Documented by: Warfarin Sodium (Coumadin) 7.5 mg PO DAILY@1700 [facility] Last Admin: 11/08/18 17:44 Dose: 7.5 mg Documented by: Physical Examination - Physical Exam Narrative exam: Physical Exam: Constitutional: Alert, cooperative. No acute distress Head, Ears, Nose: Normocephalic, atraumatic. External ears, nose normal Eyes: Conjunctivae/corneas clear. No icterus. No ptosis. Neck: Supple, no meningeal signs Oral: poor dentition, no thrush Cardiovascular: S1, S2 normal. Respiratory: Good air entry, clear to auscultation bilaterally GI: Soft, non-tender; bowel sounds normal. No peritoneal signs Musculoskeletal: Left TMA stump healed. left thigh with medial wound with woundVAC with surrounding tenderness. Skin: Other superficial ulcers in bilateral legs Hem/Lymphatic: No palpable cervical or supraclavicular nodes. No lymphangitis Psych: Mood ok. Affect flat. Neurological: Awake, alert, oriented. No gross abnormality - Constitutional Vitals: Vital Signs Temp Pulse Resp BP Pulse Ox 97.4 F L 60 22 123/59 95 11/09/18 06:13 11/09/18 08:25 11/09/18 08:25 11/09/18 06:28 11/09/18 07:59 Temperature -Last 24 Hours Temperature 97.4 F Temperature 97.7 F Temperature 98.3 F Results - Labs CBC & Chem 7: 11/04/18 05:29 11/06/18 04:41 Labs: Abnormal lab results 11/08/18 11/08/18 11/08/18 Range/Units 16:58 18:12 21:21 PT (12.2-14.9) Sec. POC ABG pH 7.328 L (7.35-7.45) POC Glucose 242 H 272 H (70-105) 11/09/18 11/09/18 11/09/18 Range/Units 04:43 07:32 11:33 PT 15.1 H (12.2-14.9) Sec. POC ABG pH (7.35-7.45) POC Glucose 307 H 371 H (70-105) - Imaging and Cardiology Chest x-ray: report reviewed, image reviewed (Left pleural effusion.) Assessment and Plan Cultures: 11/07/2018 left thigh wound culture: Acinetobacter, MRSA A/P: 57-year-old male with diabetes, hypertension, history of left leg DVT, arthritis, COPD, pulmonary hypertension, active tobacco use, peripheral arterial disease, status post left foot transmetatarsal amputation: 1) Left thigh wound infection with cellulitis: Large and chronic ulcer, present over a month, likely ischemic in etiology. Status post revascularization of left lower extremity on 11/06/2018 and excisional debridement on 11/07/2018. Culture is growing MRSA and Acinetobacter. Acinetobacter is more likely a colonizer in the setting of a chronic wound present for over a month. 2) Peripheral vascular disease: Severe. Status post left lower extremity angioplasty. Right lower extremity to be addressed as an outpatient. Superficial wounds on bilateral legs, likely ischemic in etiology. 3) Tobacco dependence: Recommended smoking cessation. High risk of treatment failure. 4) Diabetes mellitus type 2 5) COPD with chronic respiratory failure Recs: IV vancomycin started Continue wound care Will try to get IV Dalvance approved, if denied, will plan for PO Linezolid upon discharge. Discussed with case management. MD [facility] C: [phone] O: [phone] F: [phone]
--- NOTE | 2018-11-09 15:08 | Progress Note ---
Assessment and Plan Continue left left wound vac. Needs right leg revascularization. Will decide if it should be performed during this hospitalization of not. Subjective Date of service: 11/09/18 Principal diagnosis: PVD Interval history: Continues to complain of bilateral foot pain. No other complaints. Objective - Constitutional Vitals: Vital Signs - 12hr 11/09/18 11/09/18 11/09/18 06:13 06:17 06:28 Temperature 97.4 F L Pulse Rate 63 63 Pulse Rate [ Anterior Bilateral] Pulse Rate [ Posterior Bilateral Throughout] Respiratory 18 20 Rate Respiratory Rate [Anterior Bilateral] Respiratory Rate [Posterior Bilateral Throughout] Blood Pressure 123/59 123/59 O2 Sat by Pulse 92 Oximetry 11/09/18 11/09/18 11/09/18 06:47 07:54 07:59 Temperature Pulse Rate Pulse Rate [ 60 Anterior Bilateral] Pulse Rate [ Posterior Bilateral Throughout] Respiratory 20 Rate Respiratory 16 Rate [Anterior Bilateral] Respiratory Rate [Posterior Bilateral Throughout] Blood Pressure O2 Sat by Pulse 95 Oximetry 11/09/18 11/09/18 08:25 12:48 Temperature Pulse Rate 80 Pulse Rate [ Anterior Bilateral] Pulse Rate [ 60 Posterior Bilateral Throughout] Respiratory Rate Respiratory Rate [Anterior Bilateral] Respiratory 22 Rate [Posterior Bilateral Throughout] Blood Pressure 123/60 O2 Sat by Pulse Oximetry General appearance: Present: no acute distress - Respiratory Respiratory effort: normal Extremities: abnormal (Left thigh wound vac in place.) Extremity abnormal: other (Right foot wounds stable without overt signs of infection) - Labs CBC & Chem 7: 11/04/18 05:29 11/06/18 04:41 Labs: Abnormal lab results 11/08/18 11/08/18 11/08/18 Range/Units 16:58 18:12 21:21 PT (12.2-14.9) Sec. POC ABG pH 7.328 L (7.35-7.45) POC Glucose 242 H 272 H (70-105) 11/09/18 11/09/18 11/09/18 Range/Units 04:43 07:32 11:33 PT 15.1 H (12.2-14.9) Sec. POC ABG pH (7.35-7.45) POC Glucose 307 H 371 H (70-105) Medications & Allergies - Medications Allergies/Adverse Reactions: Allergies ketorolac tromethamine [From Toradol] Allergy (Verified 01/31/17 05:38) Vomiting nausea/vomiting tramadol Allergy (Verified 01/31/17 05:38) Vomiting nausea/vomiting Home Medications: Home Medications Medication Instructions Recorded Confirmed Last Taken Type ALPRAZolam [Xanax TAB] 0.5 mg PO TID PRN #10 tablet 11/17/17 11/08/18 Unknown Rx AtorvaSTATin [Lipitor] 40 mg PO QHS #30 11/17/17 11/08/18 11/14/17 Rx Gabapentin [Neurontin] 800 mg PO TID 08/02/18 11/08/18 Unknown History HYDROcodone/ACETAMINOPHEN 1 each PO Q6H #10 tablet 08/15/18 11/08/18 Unknown Rx [Hydrocodone-Acetamin 5-325 mg] metFORMIN [Glucophage] 500 mg PO BID 11/08/18 11/08/18 Unknown History Active Medications: Generic Name Dose Route Start Last Admin Trade Name Freq PRN Reason Stop Dose Admin Acetaminophen 650 mg 11/03/18 17:31 Tylenol PO Q4H PRN Pain MILD(1-3)/Fever >100.5/MORROW Acetaminophen/Hydrocodone Bitart 1 each 11/07/18 14:40 11/08/18 20:20 [place] 10/325 PO 1 each Q6H PRN Administration Pain, Moderate (4-6) Albuterol/Ipratropium 1 ampul 11/08/18 20:00 11/09/18 07:54 Duoneb *Not For Prn Use* IH 1 ampul Q6HRT RAJAT Administration Alprazolam 0.5 mg 11/03/18 17:43 11/08/18 20:20 Xanax PO 0.5 mg TID PRN Administration Anxiety Arformoterol Tartrate 15 mcg 11/08/18 20:00 11/09/18 07:54 Brovana Nebu IH 15 mcg Q12HRT RAJAT Administration Aspirin 81 mg 11/06/18 13:00 11/09/18 10:51 Halfprin Ec PO 81 mg QDAY RAJAT Administration Atorvastatin Calcium 40 mg 11/03/18 22:00 11/08/18 22:08 Lipitor PO Not Given QHS RAJAT Budesonide 0.5 mg 11/08/18 20:00 11/09/18 07:54 Pulmicort IH 0.5 mg Q12HRT RAJAT Administration Clopidogrel Bisulfate 75 mg 11/07/18 10:00 11/09/18 10:51 Plavix PO 75 mg QDAY RAJAT Administration Dextrose 50 ml 11/03/18 19:31 D50w (25gm) Syringe IV PRN PRN Hypoglycemia Digoxin 0.25 mg 11/04/18 17:00 11/08/18 18:57 Lanoxin PO 0.25 mg DAILY@1700 RAJAT Administration Diltiazem HCl 60 mg 11/03/18 18:00 11/09/18 12:48 Cardizem PO 60 mg Q6HR RAJAT Administration Enoxaparin Sodium 40 mg 11/06/18 22:00 11/08/18 22:08 Lovenox SUB-Q Not Given QDAY@2200 RAJAT Famotidine 20 mg 11/03/18 22:00 11/09/18 10:51 Pepcid PO 20 mg BID RAJAT Administration Furosemide 40 mg 11/04/18 10:00 11/09/18 10:51 Lasix PO 40 mg QDAY RAJAT Administration Gabapentin 800 mg 11/03/18 20:00 11/09/18 08:52 Neurontin PO 800 mg TID RAJAT Administration Hydromorphone HCl 1 mg 11/07/18 14:41 11/09/18 10:50 Dilaudid IV 1 mg Q4H PRN Administration Pain , Severe (7-10) Sodium Chloride 500 mls @ 50 mls/hr 11/06/18 10:00 11/06/18 10:45 Nacl 0.9% 500 Ml IV 100 mls DIRECT RAJAT Administration Vancomycin HCl 1,500 mg/ 530 mls @ 333.333 mls/hr 11/09/18 14:00 Sodium Chloride IV Q12H [facility] Insulin Glargine 10 units 11/09/18 22:00 Lantus SUB-Q QHS RAJAT Insulin Human Lispro 0 unit 11/03/18 22:00 11/09/18 12:44 Humalog SUB-Q 8 unit ACHS RAJAT Administration Protocol Methylprednisolone Sodium Succinate 40 mg 11/08/18 18:00 11/09/18 06:17 Solu-Medrol IV 40 mg Q8HR RAJAT Administration Ondansetron HCl 4 mg 11/03/18 17:31 Zofran IV Q8H PRN Nausea And Vomiting Prednisone 10 mg 11/04/18 10:00 11/09/18 10:50 Deltasone PO 10 mg DAILY RAJAT Administration Sodium Chloride 10 ml 11/03/18 22:00 11/09/18 10:51 Sodium Chloride Flush Syringe 10 Ml IV 10 ml BID RAJAT Administration Sodium Chloride 10 ml 11/03/18 17:31 11/08/18 10:50 Sodium Chloride Flush Syringe 10 Ml IV 10 ml PRN PRN Administration LINE FLUSH Warfarin Sodium 7.5 mg 11/07/18 17:00 11/08/18 17:44 Coumadin PO 7.5 mg DAILY@1700 RAJAT Administration
[2018-11-09] MEDS: VANCOMYCIN 1,500 MG in NACL 0.9% 500 ML 500 ML IV SCH (15:35)
--- NOTE | 2018-11-09 17:06 | Progress Note ---
Assessment and Plan Acute on chronic respiratory failure on O2 at 5L COPD Tobacco use disorder Lower extremity arterial disease with critical limb ischemia Hypertension Diabetes ILD A. fib Hyperlipidemia chronic Systolic CHF EF 40% Hypercoagulable states Supplemental O2 5 litres, wean to keep O2 sats 88-90% Albuterol/atrovent aerosol treatments q 6 hours. Continue steroids, quick taper to support and promote wound healing Acucchecks with strict glycemic control Continue Pepcid. Continue therapeutic anticoagulation Wound care, has a thigh drain Tobacco cessation counselling Supportive care PT/OT/Mobility Subjective Date of service: 11/09/18 Principal diagnosis: PVD Interval history: Follow up: Acute on chronic hypoxic respiratory failure, COPD, Tobacco use disorder, VTE Seen and examined. Vitals, labs, medications, chart reviewed. 24 hour events reviewed. No new complaints. Denies any chest pain, no shortness of breath, no fevers or chills. No diarrhea, no vomiting Remains on supplemental oxygen therapy. Objective - Exam Narrative Exam: General.: Appears well, no distress, nontoxic HEENT: Moist mucous membranes, extraocular muscles intact, no lymphadenopathy Neck: supple Cardiac: S1-S2 heard Lungs: clear to auscultation bilaterally Abdomen: soft , nontender, nondistended, bowel sounds positive Extremities: Patient has ulcerations in both lower extremities, poor pulses on right side, TM amputation of L foot Skin: ulcerations to BLE Neurologic: no gross focal deficits Psych: calm, and cooperative Vital Signs - 12hr 11/09/18 11/09/18 11/09/18 06:13 06:17 06:28 Temperature 97.4 F L Pulse Rate 63 63 Pulse Rate [ Anterior Bilateral] Pulse Rate [ Posterior Bilateral Throughout] Respiratory 18 20 Rate Respiratory Rate [Anterior Bilateral] Respiratory Rate [Posterior Bilateral Throughout] Blood Pressure 123/59 123/59 O2 Sat by Pulse 92 Oximetry 11/09/18 11/09/18 11/09/18 06:47 07:54 07:59 Temperature Pulse Rate Pulse Rate [ 60 Anterior Bilateral] Pulse Rate [ Posterior Bilateral Throughout] Respiratory 20 Rate Respiratory 16 Rate [Anterior Bilateral] Respiratory Rate [Posterior Bilateral Throughout] Blood Pressure O2 Sat by Pulse 95 Oximetry 11/09/18 11/09/18 11/09/18 08:25 12:48 14:16 Temperature Pulse Rate 80 Pulse Rate [ 70 Anterior Bilateral] Pulse Rate [ 60 Posterior Bilateral Throughout] Respiratory Rate Respiratory 20 Rate [Anterior Bilateral] Respiratory 22 Rate [Posterior Bilateral Throughout] Blood Pressure 123/60 O2 Sat by Pulse Oximetry 11/09/18 14:25 Temperature Pulse Rate Pulse Rate [ 68 Anterior Bilateral] Pulse Rate [ Posterior Bilateral Throughout] Respiratory Rate Respiratory 20 Rate [Anterior Bilateral] Respiratory Rate [Posterior Bilateral Throughout] Blood Pressure O2 Sat by Pulse Oximetry Constitutional: no acute distress, alert Eyes: non-icteric ENT: oropharynx moist Neck: supple, no JVD Ascultation: Bilateral: diminished breath sounds Cardiovascular: regular rate and rhythm Gastrointestinal: soft, non-tender Extremities: other (Ischemia.) Neurologic: normal mental status, non-focal exam, pupils equal and round, CN II-XII normal Psychiatric: mood appropriate CBC and BMP: 11/04/18 05:29 11/06/18 04:41 ABG, PT/INR, D-dimer: ABG POC ABG pH 7.328 (7.35-7.45) L 11/08/18 18:12 POC ABG pCO2 44.5 (35-45) 11/08/18 18:12 POC ABG HCO3 23.4 (22-26 mml/L) 11/08/18 18:12 POC ABG Total CO2 25 (23-27mmol/L) 11/08/18 18:12 POC ABG O2 Sat 52 11/08/18 18:12 PT/INR, D-dimer PT 15.1 Sec. (12.2-14.9) H 11/09/18 04:43 INR 1.12 (0.87-1.13) 11/09/18 04:43 Abnormal lab findings: Abnormal Labs 11/03/18 11/03/18 11/03/18 15:35 15:35 22:48 RDW 19.0 H Lymph % (Auto) 8.7 L [place] % (Auto) Lymph # 0.6 L Seg Neutrophils % 84.5 H PT POC ABG pH Chloride Creatinine Glucose 174 H POC Glucose 144 H Calcium 11/04/18 11/04/18 11/04/18 05:29 05:29 07:59 RDW 19.4 H Lymph % (Auto) 12.7 L [place] % (Auto) 8.0 H Lymph # 1.0 L Seg Neutrophils % 75.5 H PT POC ABG pH Chloride 108.6 H Creatinine 0.7 L Glucose 152 H POC Glucose 158 H Calcium 8.2 L 11/04/18 11/04/18 11/04/18 12:35 16:25 21:09 RDW Lymph % (Auto) [place] % (Auto) Lymph # Seg Neutrophils % PT POC ABG pH Chloride Creatinine Glucose POC Glucose 197 H 125 H 210 H Calcium 11/05/18 11/05/18 11/05/18 08:20 12:21 15:35 RDW Lymph % (Auto) [place] % (Auto) Lymph # Seg Neutrophils % PT POC ABG pH Chloride Creatinine Glucose POC Glucose 150 H 183 H 180 H Calcium 11/05/18 11/06/18 11/06/18 21:49 04:41 07:44 RDW Lymph % (Auto) [place] % (Auto) Lymph # Seg Neutrophils % PT POC ABG pH Chloride Creatinine Glucose 136 H POC Glucose 231 H 127 H Calcium 11/06/18 11/06/18 11/06/18 14:16 16:00 21:05 RDW Lymph % (Auto) [place] % (Auto) Lymph # Seg Neutrophils % PT POC ABG pH Chloride Creatinine Glucose POC Glucose 281 H 230 H 154 H Calcium 11/07/18 11/07/18 11/07/18 07:46 16:27 21:13 RDW Lymph % (Auto) [place] % (Auto) Lymph # Seg Neutrophils % PT POC ABG pH Chloride Creatinine Glucose POC Glucose 162 H 232 H 260 H Calcium 11/08/18 11/08/18 11/08/18 07:45 11:32 16:58 RDW Lymph % (Auto) [place] % (Auto) Lymph # Seg Neutrophils % PT POC ABG pH Chloride Creatinine Glucose POC Glucose 118 H 178 H 242 H Calcium 11/08/18 11/08/18 11/09/18 18:12 21:21 04:43 RDW Lymph % (Auto) [place] % (Auto) Lymph # Seg Neutrophils % PT 15.1 H POC ABG pH 7.328 L Chloride Creatinine Glucose POC Glucose 272 H Calcium 11/09/18 11/09/18 07:32 11:33 RDW Lymph % (Auto) [place] % (Auto) Lymph # Seg Neutrophils % PT POC ABG pH Chloride Creatinine Glucose POC Glucose 307 H 371 H Calcium
[2018-11-09] MEDS: NORCO 10/325 PO PRN (19:29)
[2018-11-09] MEDS: COUMADIN PO SCH (19:30)
[2018-11-09] MEDS: LANOXIN PO SCH (19:30)
[2018-11-09] MEDS: LOVENOX SUB-Q SCH (21:57)
[2018-11-09] MEDS ORDERED: LANTUS SUB-Q SCH (22:00)
--- NOTE | 2018-11-10 00:04 | Progress Note ---
Assessment and Plan Assessment and plan: 57-year-old man who presents with bilateral lower extremity pain 2 weeks. Is complaining of purulent draining wounds. 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 fib, tobacco dependence,, hyperlipidemia, peripheral arterial disease status post bypass and stents in his legs, partial left foot amputation arterial duplex of lower extremity; shows significant bilateral lower extremity disease involving all segments, CT A/P with run offs; Bilateral peripheral arterial disease Diagnosis Lower extremity arterial disease with critical limb ischemia Hypertension Diabetes ILD COPD A. fib Tobacco dependence Hyperlipidemia chronic Systolic CHF EF 40% Hypercoagulable states Plan Vascular surgery consults appreciated, -Sp LLE angioplasty 11/06, he also has chronic PAD on right which need to be addressed as an outpatient Optimize medications for chronic conditions -case dw dr Finn, dc lovenox, restart warfarin, bridge not required -Wound care consult and Gen surgery consult appreciated; sp Excisional debridement of left thigh wound, right foot and heel wound 11/07 -wound vac placed, needs wound vac set up at home prior to dc dvt prophylaxis fully anticoagulated History Interval history: He continues to complain of pain in bilateral lower extremities, it is improved Review of systems Constitutional: No fevers, no malaise, no joint pains CVS: No chest pain, no orthopnea, no dyspnea on exertion, no pedal edema GI: No abdominal pain, no diarrhea, no vomiting, no constipation Respiratory: shortness of breath is improved, no wheezing, no coughing Hospitalist Physical - Physical exam Narrative exam: General.: Appears well, no distress, nontoxic HEENT: Moist mucous membranes, extraocular muscles intact, no lymphadenopathy Neck: supple Cardiac: S1-S2 heard Lungs: clear to auscultation bilaterally Abdomen: soft , nontender, nondistended, bowel sounds positive Extremities: Patient has ulcerations in both lower extremities, poor pulses on right side, TM amputation of L foot Skin: ulcerations to BLE Neurologic: no gross focal deficits Psych: calm, and cooperative - Constitutional Vitals: Temp Pulse Resp BP Pulse Ox 97.5 F L 62 20 135/71 95 11/09/18 18:10 11/09/18 20:01 11/09/18 20:01 11/09/18 19:30 11/09/18 19:46 General appearance: Present: no acute distress Results - Labs CBC & Chem 7: 11/04/18 05:29 11/06/18 04:41 Labs: Laboratory Last Values WBC 8.0 K/mm3 (4.5-11.0) 11/04/18 05:29 RBC 4.24 M/mm3 (3.65-5.03) 11/04/18 05:29 Hgb 11.9 gm/dl (11.8-15.2) 11/04/18 05:29 Hct 37.4 % (35.5-45.6) 11/04/18 05:29 MCV 88 fl (84-94) 11/04/18 05:29 MCH 28 pg (28-32) 11/04/18 05:29 MCHC 32 % (32-34) 11/04/18 05:29 RDW 19.4 % (13.2-15.2) H 11/04/18 05:29 Plt Count 293 K/mm3 (140-440) 11/04/18 05:29 Lymph % (Auto) 12.7 % (13.4-35.0) L 11/04/18 05:29 [place] % (Auto) 8.0 % (0.0-7.3) H 11/04/18 05:29 Eos % (Auto) 2.8 % (0.0-4.3) 11/04/18 05:29 Baso % (Auto) 1.0 % (0.0-1.8) 11/04/18 05:29 Lymph # 1.0 K/mm3 (1.2-5.4) L 11/04/18 05:29 [place] # 0.6 K/mm3 (0.0-0.8) 11/04/18 05:29 Eos # 0.2 K/mm3 (0.0-0.4) 11/04/18 05:29 Baso # 0.1 K/mm3 (0.0-0.1) 11/04/18 05:29 Seg Neutrophils % 75.5 % (40.0-70.0) H 11/04/18 05:29 Seg Neutrophils # 6.1 K/mm3 (1.8-7.7) 11/04/18 05:29 PT 15.1 Sec. (12.2-14.9) H 11/09/18 04:43 INR 1.12 (0.87-1.13) 11/09/18 04:43 APTT 34.8 Sec. (24.2-36.6) 11/06/18 04:41 POC ABG pH 7.328 (7.35-7.45) L 11/08/18 18:12 POC ABG pCO2 44.5 (35-45) 11/08/18 18:12 POC ABG HCO3 23.4 (22-26 mml/L) 11/08/18 18:12 POC ABG Total CO2 25 (23-27mmol/L) 11/08/18 18:12 POC ABG O2 Sat 52 11/08/18 18:12 POC ABG Base Excess -3 ((-2) - (+3)mmol/L) 11/08/18 18:12 FiO2 21 % 11/08/18 18:12 Sodium 137 mmol/L (137-145) 11/06/18 04:41 Potassium 4.8 mmol/L (3.6-5.0) 11/06/18 04:41 Chloride 102.9 mmol/L (98-107) 11/06/18 04:41 Carbon Dioxide 22 mmol/L (22-30) 11/06/18 04:41 Anion Gap 17 mmol/L 11/06/18 04:41 BUN 19 mg/dL (9-20) 11/06/18 04:41 Creatinine 1.0 mg/dL (0.8-1.5) 11/06/18 04:41 Estimated GFR > 60 ml/min 11/06/18 04:41 BUN/Creatinine Ratio 19 % 11/06/18 04:41 Glucose 136 mg/dL (75-100) H 11/06/18 04:41 POC Glucose 367 (70-105) H 11/09/18 21:39 Calcium 9.0 mg/dL (8.4-10.2) 11/06/18 04:41 Active Medications - Current Medications Current Medications: Generic Name Dose Route Start Last Admin Trade Name Freq PRN Reason Stop Dose Admin Acetaminophen 650 mg 11/03/18 17:31 Tylenol PO Q4H PRN Pain MILD(1-3)/Fever >100.5/MORROW Acetaminophen/Hydrocodone Bitart 1 each 11/07/18 14:40 11/09/18 19:29 [place] 10/325 PO 1 each Q6H PRN Administration Pain, Moderate (4-6) Albuterol/Ipratropium 1 ampul 11/08/18 20:00 11/09/18 19:45 Duoneb *Not For Prn Use* IH Not Given Q6HRT RAJAT Alprazolam 0.5 mg 11/03/18 17:43 11/08/18 20:20 Xanax PO 0.5 mg TID PRN Administration Anxiety Arformoterol Tartrate 15 mcg 11/08/18 20:00 11/09/18 19:43 Brovana Nebu IH 15 mcg Q12HRT RAJAT Administration Aspirin 81 mg 11/06/18 13:00 11/09/18 10:51 Halfprin Ec PO 81 mg QDAY RAJAT Administration Atorvastatin Calcium 40 mg 11/03/18 22:00 11/09/18 21:57 Lipitor PO 40 mg QHS RAJAT Administration Budesonide 0.5 mg 11/08/18 20:00 11/09/18 19:43 Pulmicort IH 0.5 mg Q12HRT RAJAT Administration Clopidogrel Bisulfate 75 mg 11/07/18 10:00 11/09/18 10:51 Plavix PO 75 mg QDAY RAJAT Administration Dextrose 50 ml 11/03/18 19:31 D50w (25gm) Syringe IV PRN PRN Hypoglycemia Digoxin 0.25 mg 11/04/18 17:00 11/09/18 19:30 Lanoxin PO 0.25 mg DAILY@1700 RAJAT Administration Diltiazem HCl 60 mg 11/03/18 18:00 11/09/18 19:29 Cardizem PO 60 mg Q6HR RAJAT Administration Enoxaparin Sodium 40 mg 11/06/18 22:00 11/09/18 21:57 Lovenox SUB-Q 40 mg QDAY@2200 RAJAT Administration Famotidine 20 mg 11/03/18 22:00 11/09/18 21:56 Pepcid PO 20 mg BID RAJAT Administration Furosemide 40 mg 11/04/18 10:00 11/09/18 10:51 Lasix PO 40 mg QDAY RAJAT Administration Gabapentin 800 mg 11/03/18 20:00 11/09/18 21:56 Neurontin PO 800 mg TID RAJAT Administration Hydromorphone HCl 1 mg 11/07/18 14:41 11/09/18 22:23 Dilaudid IV 1 mg Q4H PRN Administration Pain , Severe (7-10) Sodium Chloride 500 mls @ 50 mls/hr 11/06/18 10:00 11/06/18 10:45 Nacl 0.9% 500 Ml IV 100 mls DIRECT RAJAT Administration Vancomycin HCl 1,500 mg/ 530 mls @ 333.333 mls/hr 11/09/18 14:00 11/09/18 21:09 Sodium Chloride IV Infused Q12H RAJAT Infusion Insulin Glargine 10 units 11/09/18 22:00 11/09/18 21:57 Lantus SUB-Q 10 units QHS RAJAT Administration Insulin Human Lispro 0 unit 11/03/18 22:00 11/09/18 19:31 Humalog SUB-Q 6 unit ACHS RAJAT Administration Protocol Methylprednisolone Sodium Succinate 40 mg 11/08/18 18:00 11/09/18 21:57 Solu-Medrol IV 40 mg Q8HR RAJAT Administration Ondansetron HCl 4 mg 11/03/18 17:31 Zofran IV Q8H PRN Nausea And Vomiting Prednisone 10 mg 11/04/18 10:00 11/09/18 10:50 Deltasone PO 10 mg DAILY RAJAT Administration Sodium Chloride 10 ml 11/03/18 22:00 11/09/18 22:05 Sodium Chloride Flush Syringe 10 Ml IV 10 ml BID RAJAT Administration Sodium Chloride 10 ml 11/03/18 17:31 11/08/18 10:50 Sodium Chloride Flush Syringe 10 Ml IV 10 ml PRN PRN Administration LINE FLUSH Warfarin Sodium 7.5 mg 11/07/18 17:00 11/09/18 19:30 Coumadin PO 7.5 mg DAILY@1700 RAJAT Administration Nutrition/Malnutrition Assess - Dietary Evaluation Nutrition/Malnutrition Findings: Nutrition Notes Start: 11/04/18 12:35 Freq: Status: Active Protocol: Document 11/08/18 11:40 LM (Rec: 11/08/18 11:46 LM [id number]) Co-Sign 11/08/18 11:40 LP Nutrition Notes Initial or Follow up Brief Note Subjective/Other Information Consult for Coumadin education . #1 Nutrition Diagnosis Food and nutrition-related knowledge deficit Etiology Pt on coumadin As Evidenced by Signs and Symptoms Pt statement of being unaware of vitamin k interaction Nutrition Intervention Teaching Recipient Patient Learning Readiness Good Teaching Methods Discussion,Handout Response to Teaching Verbalize understanding Education Handouts Provided Vitamin K and Medciations Barriers to Learning Motivation RD phone number provided Yes Patient aware of follow up options Yes Revisit per MD consult or patient Sign Off request:
[2018-11-10] MEDS: CARDIZEM PO SCH ×3 (00:10→13:15)
[2018-11-10] MEDS: HumaLOG SUB-Q SCH ×3 (00:31→13:14)
[2018-11-10] MEDS: VANCOMYCIN 1,500 MG in NACL 0.9% 500 ML 500 ML IV SCH ×2 (02:22→14:18)
[2018-11-10] MEDS: NORCO 10/325 PO PRN (02:22)
[2018-11-10] MEDS: DUONEB *Not for PRN Use IH SCH ×3 (02:23→13:54)
[2018-11-10] MEDS: DILAUDID IV PRN ×2 (06:32→10:34)
[2018-11-10 07:20] LABS: INR 1.49 (0.87-1.13)
[2018-11-10] MEDS: BROVANA NEBU IH SCH (07:22)
[2018-11-10] MEDS: PULMICORT IH SCH (07:22)
[2018-11-10] MEDS: SOLU-Medrol IV SCH ×2 (07:30→14:05)
--- NOTE | 2018-11-10 09:18 | Discharge Summary ---
Providers - Providers Date of Admission: 11/03/18 17:31 Attending physician: SRIDEVI ROSE MD 11/03/18 17:46 Consult to Wound/ET Nurse [CONS] Routine Reason For Exam: wound eval 11/06/18 13:46 Consult to Physician [CONS] Routine Comment: Consulting Provider: REBECA JUAREZ Physician Instructions: Reason For Exam: Needs wound debridement, thigh wound 11/08/18 17:13 Consult to Physician [CONS] Routine Comment: Consulting Provider: DOMINGA BECERRA Physician Instructions: Reason For Exam: copd 11/09/18 10:55 Consult to Physician [CONS] Routine Comment: Consulting Provider: NIDA MCLEOD Physician Instructions: Reason For Exam: Wound Culture Shows MRSA 11/09/18 13:14 Consult to Case Management [CONS] Routine Services Needed at Discharge: Other Notified:: copy of given cm Comment:: Please help arrange PO Linezolid 600 mg BID x 14 days. Thanks. 11/09/18 14:25 Physical Therapy Evaluation and Treat [CONS] Routine Comment: Reason For Exam: generalized weakness Primary care physician: LINDA TRAN Hospitalization Condition: Fair Hospital course: 57-year-old man who presents with bilateral lower extremity pain 2 weeks. Is complaining of purulent draining wounds. 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 fib, tobacco dependence,, hyperlipidemia, peripheral arterial disease status post bypass and stents in his legs, partial left foot amputation arterial duplex of lower extremity; shows significant bilateral lower extremity disease involving all segments, CT A/P with run offs; Bilateral peripheral arterial disease Diagnosis Lower extremity arterial disease with critical limb ischemia Hypertension Diabetes ILD COPD A. fib Tobacco dependence Hyperlipidemia chronic Systolic CHF EF 40% Hypercoagulable states hospital course Vascular surgery consults appreciated, -Sp LLE angioplasty 11/06, he also has chronic PAD on right which need to be addressed as an outpatient Optimize medications for chronic conditions -he was continued on his warfarin -Wound care consult and Gen surgery consult appreciated; sp Excisional debridement of left thigh wound, right foot and heel wound 11/07 -wound vac placed, wound vac set up at home prior to dc Disposition: [id number] HOME [facility] Time spent for discharge: 33 mins Core Measure Documentation - Palliative Care Palliative Care/ Comfort Measures: Not Applicable - Core Measures Any of the following diagnoses?: none Exam - Physical Exam Narrative exam: General.: Appears well, no distress, nontoxic HEENT: Moist mucous membranes, extraocular muscles intact, no lymphadenopathy Neck: supple Cardiac: S1-S2 heard Lungs: clear to auscultation bilaterally Abdomen: soft , nontender, nondistended, bowel sounds positive Extremities: Patient has ulcerations in both lower extremities, poor pulses on right side, TM amputation of L foot Skin: ulcerations to BLE Neurologic: no gross focal deficits Psych: calm, and cooperative - Constitutional Vitals: Temp Pulse Resp BP Pulse Ox 98.1 F 57 L 18 123/72 96 11/10/18 05:24 11/10/18 07:43 11/10/18 07:43 11/10/18 05:24 11/10/18 07:24 Plan Follow up with: PRIMARY CAREMD [Referring] - 3-5 Days GERARDO LOWRY MD [Staff Physician] - 7 Days NIDA MCLEOD MD [Staff Physician] - 7 Days Forms: Warfarin Discharge Instruction Prescriptions: Insulin Glargine [Lantus VIAL] 10 units SUB-Q QHS 30 Days units Fluticasone/Salmeterol [Advair 250-50 Diskus] 1 each IH BID #1 blst.w.dev Aspirin EC [Aspirin Enteric Coated TAB] 81 mg PO QDAY #30 tablet Warfarin [Coumadin] 7.5 mg PO DAILY@1700 #30 tablet predniSONE [Deltasone] 10 mg PO .TAPER #21 tab Diltiazem HCl [Diltiazem 24Hr Cd] 240 mg PO DAILY #30 cap.er.24h Digoxin [Lanoxin] 0.25 mg PO DAILY@1700 #30 tablet Furosemide [Lasix TAB] 40 mg PO QDAY #30 tablet HYDROcodone/APAP 10-325 [[place] 10-325 mg TAB] 1 each PO Q6H PRN #30 tablet PRN Reason: Pain, Moderate (4-6) Clopidogrel [Plavix] 75 mg PO QDAY #30 tablet Pantoprazole [Protonix] 40 mg PO QDAY #30 tablet ALBUTEROL NEB's [Proventil 0.083% NEBS] 2.5 mg IH TID PRN #120 neb PRN Reason: Wheezing Tiotropium [place] [Spiriva] 18 mcg IH DAILY #30 cap.w.dev ALBUTEROL Inhaler(NF) [VENTOLIN Inhaler(NF)] 2 puff IH Q4H PRN #1 inha PRN Reason: Shortness Of Breath Other Discharge Orders: Nebulizer (Amb) Location: None Selected
[2018-11-10] MEDS: HALFPRIN EC PO SCH (09:25)
[2018-11-10] MEDS: DELTASONE PO SCH (09:26)
[2018-11-10] MEDS: LASIX PO SCH (09:26)
[2018-11-10] MEDS: NEURONTIN PO SCH ×2 (09:26→14:04)
[2018-11-10] MEDS: SODIUM CHLORIDE FLUSH SYRINGE 10 ML IV SCH (09:27)
[2018-11-10] MEDS: PLAVIX PO SCH (09:27)
[2018-11-10] MEDS: PEPCID PO SCH (09:27)
--- NOTE | 2018-11-10 10:06 | Progress Note ---
Assessment and Plan Cultures: 11/07/2018 left thigh wound culture: Acinetobacter, MRSA A/P: 57-year-old male with diabetes, hypertension, history of left leg DVT, arthritis, COPD, pulmonary hypertension, active tobacco use, peripheral arterial disease, status post left foot transmetatarsal amputation: 1) Left thigh wound infection with cellulitis: Large and chronic ulcer, present over a month, likely ischemic in etiology. Status post revascularization of left lower extremity on 11/06/2018 and excisional debridement on 11/07/2018. Culture is growing MRSA and Acinetobacter. Acinetobacter is more likely a colonizer in the setting of a chronic wound present for over a month. 2) Peripheral vascular disease: Severe. Status post left lower extremity angioplasty. Right lower extremity to be addressed as an outpatient. Superficial wounds on bilateral legs, likely ischemic in etiology. 3) Tobacco dependence: Recommended smoking cessation. High risk of treatment failure. 4) Diabetes mellitus type 2 5) COPD with chronic respiratory failure Recs: Continue IV vancomycin while inpatient Continue wound care IV Dalvance not approved, anticipate discharge on PO Linezolid 600 mg BID x 14 days- approved by case management f/u ID clinic in 2 weeks ID is signing off [facility] M: [phone] O:[phone] Subjective Date of service: 11/10/18 Principal diagnosis: PVD Interval history: Patient sen and examined. Denied SOB, Rashes or generalized pain. No fevers. Objective - Exam Narrative Exam: Constitutional: Alert, cooperative. No acute distress Head, Ears, Nose: Normocephalic, atraumatic. External ears, nose normal Eyes: Conjunctivae/corneas clear. No icterus. No ptosis. Neck: Supple, no meningeal signs Oral: poor dentition, no thrush Cardiovascular: S1, S2 normal. Respiratory: Good air entry, clear to auscultation bilaterally GI: Soft, non-tender; bowel sounds normal. No peritoneal signs Musculoskeletal: Left TMA stump healed. left thigh with medial wound with woundVAC with surrounding tenderness. Skin: Other superficial ulcers in bilateral legs Hem/Lymphatic: No palpable cervical or supraclavicular nodes. No lymphangitis Psych: Mood ok. Affect flat. Neurological: Awake, alert, oriented. No gross abnormality - Constitutional Vitals: Vital Signs Temp Pulse Resp BP Pulse Ox 98.1 F 57 L 18 123/72 96 11/10/18 05:24 11/10/18 07:43 11/10/18 07:43 11/10/18 05:24 11/10/18 07:24 Temperature -Last 24 Hours Temperature 98.1 F Temperature 98.1 F Temperature 97.5 F Temperature 98.1 F - Labs CBC & Chem 7: 11/04/18 05:29 11/06/18 04:41 Labs: Abnormal lab results 11/09/18 11/09/18 11/09/18 Range/Units 11:33 17:34 21:39 PT (12.2-14.9) Sec. INR (0.87-1.13) POC Glucose 371 H 330 H 367 H (70-105) 11/10/18 11/10/18 Range/Units 06:49 07:58 PT 19.0 H (12.2-14.9) Sec. INR 1.49 H (0.87-1.13) POC Glucose 402 H (70-105)
--- NOTE | 2018-11-10 11:01 | Progress Note ---
Assessment and Plan 57 yo M s/p debridement of open L thigh wound and right LE wounds, POD 3 Plan: 1. Will apply wet to dry dressing today for discharge. Case management working on obtaining wound vac and may be applied by home health care once it arrives to patient 2. RLE wound care per child & adolescent psychiatrist 3. cultures - MRSA, 4. c/w abx per iD - linezolid planned for discharged Pt to follow up in wound care clinic after dc. He is cleared for dc from surgery standpoint. Thank you, please call with questions Subjective Date of service: 11/10/18 Narrative: Pt seen and examined. No acute complaints. Afebrile Objective Vital Signs - 12hr 11/09/18 11/10/18 11/10/18 23:24 05:24 07:24 Temperature 98.1 F 98.1 F Pulse Rate 56 L 63 Pulse Rate [ 56 L Anterior Bilateral] Respiratory 20 20 Rate Respiratory 18 Rate [Anterior Bilateral] Blood Pressure 131/73 123/72 O2 Sat by Pulse 97 94 96 Oximetry 11/10/18 07:43 Temperature Pulse Rate Pulse Rate [ 57 L Anterior Bilateral] Respiratory Rate Respiratory 18 Rate [Anterior Bilateral] Blood Pressure O2 Sat by Pulse Oximetry - General physical appearance Narrative Exam: Gen: AAOx3. NAD CV: s1, S2+ resp: even and unlabored Ext: L thigh wound c/d/i. [place] granulation tissue at base. No drainage. No bleeding. R foot wound c/d/i - Labs 11/04/18 05:29 11/06/18 04:41
[2018-11-10] MEDS ORDERED: HumaLOG SUB-Q NR (13:29)
[2018-11-10] MEDS: XANAX PO PRN (14:24)
[2018-11-10 16:31] VITALS: BP 138/78
== END 2018-11-10 16:36 | disposition home health service (06) | DRG 252 ==
LOC: ED 14:35 → 3A 17:31
PROVIDERS: ADMIT Internal Medicine; ATTEND Internal Medicine
PROC: 047D3ZZ Dilation of Left Common Iliac Artery, Percutaneous Approach (ICD-10-PCS; principal; 2018-11-06)
PROC: 047J3ZZ Dilation of Left External Iliac Artery, Percutaneous Approach (ICD-10-PCS; 2018-11-06)
PROC: 047L3Z1 Dilation of Left Femoral Artery using Drug-Coated Balloon, Percutaneous Approach (ICD-10-PCS; 2018-11-06)
PROC: 04CL3ZZ Extirpation of Matter from Left Femoral Artery, Percutaneous Approach (ICD-10-PCS; 2018-11-06)
PROC: B41G1ZZ Fluoroscopy of Left Lower Extremity Arteries using Low Osmolar Contrast (ICD-10-PCS; 2018-11-06)
PROC: 0JBQ0ZZ Excision of Right Foot Subcutaneous Tissue and Fascia, Open Approach (ICD-10-PCS; 2018-11-07)
PROC: 0JBM0ZZ Excision of Left Upper Leg Subcutaneous Tissue and Fascia, Open Approach (ICD-10-PCS; 2018-11-07)
PROC: 0JBQ0ZZ Excision of Right Foot Subcutaneous Tissue and Fascia, Open Approach (ICD-10-PCS; 2018-11-07)
PROC: 4A033R1 Measurement of Arterial Saturation, Peripheral, Percutaneous Approach (ICD-10-PCS; 2018-11-08)
DX: E11.51 Type 2 diabetes mellitus with diabetic peripheral angiopathy without gangrene (principal); I77.77 Dissection of artery of lower extremity; J96.21 Acute and chronic respiratory failure with hypoxia; I50.43 Acute on chronic combined systolic (congestive) and diastolic (congestive) heart failure; L03.116 Cellulitis of left lower limb; I99.8 Other disorder of circulatory system; J44.1 Chronic obstructive pulmonary disease with (acute) exacerbation; M19.90 Unspecified osteoarthritis, unspecified site; S71.102A Unspecified open wound, left thigh, initial encounter; X58.XXXA Exposure to other specified factors, initial encounter; Y93.89 Activity, other specified; Y92.89 Other specified places as the place of occurrence of the external cause; Y99.8 Other external cause status; I11.0 Hypertensive heart disease with heart failure; E11.40 Type 2 diabetes mellitus with diabetic neuropathy, unspecified; E78.5 Hyperlipidemia, unspecified; L97.419 Non-pressure chronic ulcer of right heel and midfoot with unspecified severity; I27.20 Pulmonary hypertension, unspecified; I48.91 Unspecified atrial fibrillation; J84.9 Interstitial pulmonary disease, unspecified; D68.59 Other primary thrombophilia; B95.62 Methicillin resistant Staphylococcus aureus infection as the cause of diseases classified elsewhere; Z79.4 Long term (current) use of insulin; Z89.432 Acquired absence of left foot; Z90.49 Acquired absence of other specified parts of digestive tract; Z99.81 Dependence on supplemental oxygen; Z71.6 Tobacco abuse counseling; Z86.718 Personal history of other venous thrombosis and embolism; S91.301A Unspecified open wound, right foot, initial encounter
CPT/HCPCS: 36415; 36600; 37220; 37222; 37225; 71046; 75635; 75710; 76937; 80048; 82803; 82962; 85025; 85610; 85730; 87076; 87116; 87186; 93925; 94640; 94760; G0378; A9270-GY; C1725; C1769; C1887; C1894; J0461; J1170; J1644; J1650; J1815; J2250; J2920; J3010; J3370; J7030; J7040; J7512; Q9967

== ENCOUNTER 2018-11-16 16:30 | Inpatient (IN) | payer MEDICAID ==
--- NOTE | 2018-11-16 16:40 | Emergency Department Report ---
ED GI Bleed HPI - General Stated complaint: ANAL BLEEDING Time Seen by Provider: 11/16/18 16:34 Source: patient, EMS Mode of arrival: Stretcher Limitations: No Limitations - History of Present Illness Initial comments: Patient is a 57-year-old male with multiple medical problems and presents with complaints of bright red blood and dark stool per rectum. Patient also complains of diarrhea. Patient states he's had diarrhea for approximately 3 days however yesterday the color of his stool changed and he noted blood. Patient denies shortness of breath. Patient denies chest pain. Patient denies weakness. Patient denies passing out. Patient denies dizziness. Patient den ies abdominal pain. Patient denies being on blood thinners. Patient states she has a past medical history diabetes, CHF, COPD and is on home O2 at 4 L. Received from EMS. EMS states the patient was initially hypotensive given 250 bolus of fluid and his blood pressure improved. MD complaint: melena, gross hematochezia -: Sudden Radiation: none Quality: painless Consistency: intermittent Improves with: none Worsens with: none Associated Symptoms: easy bruising - Related Data Home Medications Medication Instructions Recorded Confirmed Last Taken Gabapentin [Neurontin] 800 mg PO TID 08/02/18 11/08/18 Unknown metFORMIN [Glucophage] 500 mg PO BID 11/08/18 11/08/18 Unknown Previous Rx's Medication Instructions Recorded Last Taken Type ALPRAZolam [Xanax TAB] 0.5 mg PO TID PRN #10 tablet 11/17/17 Unknown Rx AtorvaSTATin [Lipitor] 40 mg PO QHS #30 11/17/17 11/14/17 Rx ALBUTEROL Inhaler(NF) [VENTOLIN 2 puff IH Q4H PRN #1 inha 11/10/18 Unknown Rx Inhaler(NF)] ALBUTEROL NEB's [Proventil 0.083% 2.5 mg IH TID PRN #120 neb 11/10/18 Unknown Rx NEBS] Aspirin EC [Aspirin Enteric Coated 81 mg PO QDAY #30 tablet 11/10/18 Unknown Rx TAB] Clopidogrel [Plavix] 75 mg PO QDAY #30 tablet 11/10/18 Unknown Rx Digoxin [Lanoxin] 0.25 mg PO DAILY@1700 #30 tablet 11/10/18 Unknown Rx Diltiazem HCl [Diltiazem 24Hr Cd] 240 mg PO DAILY #30 cap.er.24h 11/10/18 Unknown Rx Fluticasone/Salmeterol [Advair 1 each IH BID #1 blst.w.dev 11/10/18 Unknown Rx 250-50 Diskus] Furosemide [Lasix TAB] 40 mg PO QDAY #30 tablet 11/10/18 Unknown Rx HYDROcodone/APAP 10-325 [[place] 1 each PO Q6H PRN #30 tablet 11/10/18 Unknown Rx 10-325 mg TAB] Insulin Glargine [Lantus VIAL] 10 units SUB-Q QHS 30 Days units 11/10/18 Unknown Rx Pantoprazole [Protonix] 40 mg PO QDAY #30 tablet 11/10/18 Unknown Rx Tiotropium [place] [Spiriva] 18 mcg IH DAILY #30 cap.w.dev 11/10/18 Unknown Rx Warfarin [Coumadin] 7.5 mg PO DAILY@1700 #30 tablet 11/10/18 Unknown Rx predniSONE [Deltasone] 10 mg PO .TAPER #21 tab 11/10/18 Unknown Rx Allergies Allergy/AdvReac Type Severity Reaction Status Date / Time ketorolac tromethamine Allergy Vomiting Verified 01/31/17 05:38 [From Toradol] tramadol Allergy Vomiting Verified 01/31/17 05:38 ED Review of Systems ROS: Stated complaint: ANAL BLEEDING Other details as noted in HPI Constitutional: denies: chills, fever Eyes: denies: eye pain, eye discharge, vision change ENT: denies: ear pain, throat pain Respiratory: denies: cough, shortness of breath, wheezing Cardiovascular: denies: chest pain, palpitations Endocrine: no symptoms reported Gastrointestinal: diarrhea, melena, hematochezia. denies: abdominal pain, nausea Genitourinary: denies: urgency, dysuria Musculoskeletal: denies: back pain, joint swelling, arthralgia Skin: denies: rash, lesions Neurological: denies: headache, weakness, paresthesias Psychiatric: denies: anxiety, depression Hematological/Lymphatic: denies: easy bleeding, easy bruising ED Past Medical Hx - Past Medical History Previous Medical History?: Yes Hx Hypertension: Yes Hx Congestive Heart Failure: Yes Hx Diabetes: Yes Hx Deep Vein Thrombosis: Yes (LEFT LEG) Hx Arthritis: Yes (back) Hx Kidney Stones: Yes Hx Asthma: No Hx COPD: Yes Hx HIV: No Additional medical history: Cholesterol - Surgical History Past Surgical History?: Yes Hx Cholecystectomy: Yes Additional Surgical History: L. leg bypass, L. leg stents, Hernia. 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 - Family History Family history: no significant - Social History Smoking Status: Current Every Day Smoker Substance Use Type: None - Medications Home Medications: Home Medications Medication Instructions Recorded Confirmed Last Taken Type ALPRAZolam [Xanax TAB] 0.5 mg PO TID PRN #10 tablet 11/17/17 11/08/18 Unknown Rx AtorvaSTATin [Lipitor] 40 mg PO QHS #30 11/17/17 11/08/18 11/14/17 Rx Gabapentin [Neurontin] 800 mg PO TID 08/02/18 11/08/18 Unknown History metFORMIN [Glucophage] 500 mg PO BID 11/08/18 11/08/18 Unknown History ALBUTEROL Inhaler(NF) [VENTOLIN 2 puff IH Q4H PRN #1 inha 11/10/18 Unknown Rx Inhaler(NF)] ALBUTEROL NEB's [Proventil 0.083% 2.5 mg IH TID PRN #120 neb 11/10/18 Unknown Rx NEBS] Aspirin EC [Aspirin Enteric Coated 81 mg PO QDAY #30 tablet 11/10/18 Unknown Rx TAB] Clopidogrel [Plavix] 75 mg PO QDAY #30 tablet 11/10/18 Unknown Rx Digoxin [Lanoxin] 0.25 mg PO DAILY@1700 #30 tablet 11/10/18 Unknown Rx Diltiazem HCl [Diltiazem 24Hr Cd] 240 mg PO DAILY #30 cap.er.24h 11/10/18 Unknown Rx Fluticasone/Salmeterol [Advair 1 each IH BID #1 blst.w.dev 11/10/18 Unknown Rx 250-50 Diskus] Furosemide [Lasix TAB] 40 mg PO QDAY #30 tablet 11/10/18 Unknown Rx HYDROcodone/APAP 10-325 [[place] 1 each PO Q6H PRN #30 tablet 11/10/18 Unknown Rx 10-325 mg TAB] Insulin Glargine [Lantus VIAL] 10 units SUB-Q QHS 30 Days units 11/10/18 Unknown Rx Pantoprazole [Protonix] 40 mg PO QDAY #30 tablet 11/10/18 Unknown Rx Tiotropium [place] [Spiriva] 18 mcg IH DAILY #30 cap.w.dev 11/10/18 Unknown Rx Warfarin [Coumadin] 7.5 mg PO DAILY@1700 #30 tablet 11/10/18 Unknown Rx predniSONE [Deltasone] 10 mg PO .TAPER #21 tab 11/10/18 Unknown Rx ED Physical Exam - General Limitations: No Limitations General appearance: alert, in no apparent distress - Head Head exam: Present: atraumatic, normocephalic - Eye Eye exam: Present: normal appearance, PERRL, other (scleral pallor noted) - ENT ENT exam: Present: mucous membranes moist - Neck Neck exam: Present: normal inspection - Respiratory Respiratory exam: Present: normal lung sounds bilaterally. Absent: respiratory distress - Cardiovascular Cardiovascular Exam: Present: regular rate, normal rhythm. Absent: systolic murmur, diastolic murmur, rubs, gallop - GI/Abdominal GI/Abdominal exam: Present: soft, normal bowel sounds. Absent: distended, tenderness, guarding - Rectal Rectal exam: Present: normal inspection, heme (+) stool, black stool, bloody stool - Extremities Exam Extremities exam: Present: normal inspection - Back Exam Back exam: Present: normal inspection - Neurological Exam Neurological exam: Present: alert, oriented X3 - Psychiatric Psychiatric exam: Present: normal affect, normal mood - Skin Skin exam: Present: warm, dry, intact, normal color, ecchymosis (noted on arms). Absent: rash ED Course Vital Signs 11/16/18 11/16/18 11/16/18 17:27 20:02 20:16 Temperature 97.4 F L Pulse Rate 73 71 67 Respiratory 21 13 16 Rate Blood Pressure Blood Pressure 92/41 [Left] O2 Sat by Pulse 100 68 L 89 Oximetry 11/16/18 11/16/18 11/16/18 20:27 20:30 20:45 Temperature Pulse Rate 71 73 Respiratory 17 13 Rate Blood Pressure 100/46 100/50 Blood Pressure 106/50 [Left] O2 Sat by Pulse 87 Oximetry 11/16/18 11/16/18 11/16/18 21:00 21:15 21:30 Temperature Pulse Rate 79 68 70 Respiratory 19 14 11 L Rate Blood Pressure 107/52 106/61 106/58 Blood Pressure [Left] O2 Sat by Pulse 93 80 L 97 Oximetry 11/16/18 11/16/18 11/16/18 21:35 21:45 21:52 Temperature 98.3 F 98.7 F Pulse Rate 74 74 Respiratory 15 17 16 Rate Blood Pressure 106/58 114/61 Blood Pressure 114/61 [Left] O2 Sat by Pulse 99 95 94 Oximetry 11/16/18 11/16/18 11/16/18 22:00 22:15 22:30 Temperature Pulse Rate 69 Respiratory 19 16 19 Rate Blood Pressure 113/60 120/63 121/66 Blood Pressure [Left] O2 Sat by Pulse 96 94 83 L Oximetry 11/16/18 11/16/18 11/16/18 22:45 23:00 23:15 Temperature Pulse Rate 72 71 Respiratory 15 16 15 Rate Blood Pressure 114/62 114/65 116/55 Blood Pressure [Left] O2 Sat by Pulse 92 91 95 Oximetry 11/16/18 23:26 Temperature 98.4 F Pulse Rate 68 Respiratory 15 Rate Blood Pressure Blood Pressure 116/55 [Left] O2 Sat by Pulse 91 Oximetry - Reevaluation(s) Reevaluation #1: Patient noted to be hypotensive. Patient will be given another 500 mils of saline 11/16/18 17:03 Patient's blood pressures better. Patient will be admitted to the hospitalist service. Patient be given vitamin K. Patient still states she is not taking any blood thinners. Patient agrees to transfusion. 1 Unit of PRBCs will be given 11/16/18 18:10 Blood pressure has stabilized. Patient will remain on the panel monitor. Patient will be given FFP. 11/16/18 21:46 - Consultations Consultation #1: GI consult. GI states they will see the patient. Dr. Canchola was in the ER. 11/16/18 17:45 Consultation #2: Hospitalist consultation for admission. Hospitalist to admit patient. 11/16/18 18:21 - EJ/Peripheral Line Neck L Time Out Performed: Yes Indications: nurses unable to establis Skin Cleansed in Sterile Fashion: Yes Size: 20 Dressing Placed: Tegaderm Patient Tolerated Procedure: well ED Medical Decision Making - Lab Data Result diagrams: 11/16/18 17:15 11/16/18 17:15 - EKG Data -: EKG Interpreted by Me EKG shows normal: axis, intervals, QRS complexes, ST-T waves Rate: normal - EKG Data Interpretation: other (A. fib) - Medical Decision Making Patient is a 57-year-old male that presents emergency for GI bleed. Patient found to have dark stool. Patient found to be anemic. Found to have a supratherapeutic INR. Patient type and cross and given one unit. Patient given vitamin K. GI consulted. Patient also found to be hypotensive, patient given saline bolus of 500 mils which improved his blood pressure. Patient was admitted to the hospitalist service. - Differential Diagnosis melena. GI bleed. PUD. Anticoagulant toxicity Critical Care Time: Yes Critical care attestation.: If time is entered above; I have spent that time in minutes in the direct care of this critically ill patient, excluding procedure time. Critical Care Time: 55 minutes ED Disposition Clinical Impression: Supratherapeutic INR, Melena GI bleed Qualifiers: GI bleed type/associated pathology: melena Qualified Code(s): K92.1 - Melena Hypotension Qualifiers: Hypotension type: unspecified hypotension type Qualified Code(s): I95.9 - Hypotension, unspecified A-fib Qualifiers: Atrial fibrillation type: unspecified Qualified Code(s): I48.91 - Unspecified atrial fibrillation Disposition: 09 OP ADMIT IP TO THIS HOSP Is pt being admited?: Yes Does the pt Need Aspirin: No Condition: Critical Time of Disposition: 18:17
[2018-11-16] MEDS ORDERED: NACL 0.9% 500 ML 500 ML IV ONE ×2 (17:04→18:13)
[2018-11-16 17:25] LABS: Mean Corpuscular HGB Conc 31 % (32-34); Mean Corpuscular Volume 85 fl (84-94); Platelet Count 293 K/mm3 (140-440); Red Blood Count 2.15 M/mm3 (3.65-5.03); Red Cell Distribution Width 19.4 % (13.2-15.2)
[2018-11-16 17:28] LABS: Hematocrit 18.4 % (35.5-45.6); Hemoglobin 5.8 gm/dl (11.8-15.2)
[2018-11-16 17:38] LABS: Partial Thromboplastin Time 43.5 Sec. (24.2-36.6)
[2018-11-16 17:39] LABS: INR 10.8 (0.87-1.13)
[2018-11-16 17:57] LABS: Basophils % (Manual) 0 % (0.0-1.8); Eosinophils % (Manual) 0 % (0.0-4.3); Total Cells Counted 100
[2018-11-16 17:58] LABS: Anisocytosis 1+; Ovalocytes Few
[2018-11-16 18:07] LABS: Alanine Aminotransferase 44 units/L (7-56); Albumin 2.7 g/dL (3.9-5); BUN/Creatinine Ratio 42; Blood Urea Nitrogen 38 mg/dL (9-20); Calcium 8.1 mg/dL (8.4-10.2); Hemolysis Index 6
[2018-11-16] MEDS ORDERED: VITAMIN K (ADULT ONLY) SUB-Q ONE (18:11)
--- NOTE | 2018-11-16 18:29 | Gastroenterology Consultation ---
History of Present Illness - Reason for Consult Consult date: 11/16/18 GI bleed Requesting physician: DOM ROMEO III - History of Present Illness Mr Montes is a 57 yo male who presents with gi bleeding. pt is a poor historian with poor insight in his past medical history. He believes bleeding started yesterday. he has multiple loose bm's with dark maroon appearing blood. Pt denied being on blood thinners, but home meds listed warfarin and pt's INR was 10 on arrival to ED. he has dark maroon blood on rectal exam. Denies history of prior gi bleeding. he has generalized abdominal pain. Denies nsaid's. He does not believe he had prior colonoscopy or endoscopy. Past History Past Medical History: atrial fib Past Surgical History: No surgical history Social history: no significant social history Family history: no significant family history Medications and Allergies Allergies Allergy/AdvReac Type Severity Reaction Status Date / Time ketorolac tromethamine Allergy Vomiting Verified 01/31/17 05:38 [From Toradol] tramadol Allergy Vomiting Verified 01/31/17 05:38 Home Medications Medication Instructions Recorded Confirmed Last Taken Type ALPRAZolam [Xanax TAB] 0.5 mg PO TID PRN #10 tablet 11/17/17 11/08/18 Unknown Rx AtorvaSTATin [Lipitor] 40 mg PO QHS #30 11/17/17 11/08/18 11/14/17 Rx Gabapentin [Neurontin] 800 mg PO TID 08/02/18 11/08/18 Unknown History metFORMIN [Glucophage] 500 mg PO BID 11/08/18 11/08/18 Unknown History ALBUTEROL Inhaler(NF) [VENTOLIN 2 puff IH Q4H PRN #1 inha 11/10/18 Unknown Rx Inhaler(NF)] ALBUTEROL NEB's [Proventil 0.083% 2.5 mg IH TID PRN #120 neb 11/10/18 Unknown Rx NEBS] Aspirin EC [Aspirin Enteric Coated 81 mg PO QDAY #30 tablet 11/10/18 Unknown Rx TAB] Clopidogrel [Plavix] 75 mg PO QDAY #30 tablet 11/10/18 Unknown Rx Digoxin [Lanoxin] 0.25 mg PO DAILY@1700 #30 tablet 11/10/18 Unknown Rx Diltiazem HCl [Diltiazem 24Hr Cd] 240 mg PO DAILY #30 cap.er.24h 11/10/18 Unknown Rx Fluticasone/Salmeterol [Advair 1 each IH BID #1 blst.w.dev 11/10/18 Unknown Rx 250-50 Diskus] Furosemide [Lasix TAB] 40 mg PO QDAY #30 tablet 11/10/18 Unknown Rx HYDROcodone/APAP 10-325 [[place]ie 1 each PO Q6H PRN #30 tablet 11/10/18 Unknown Rx 10-325 mg TAB] Insulin Glargine [Lantus VIAL] 10 units SUB-Q QHS 30 Days units 11/10/18 Unknown Rx Pantoprazole [Protonix] 40 mg PO QDAY #30 tablet 11/10/18 Unknown Rx Tiotropium [place] [Spiriva] 18 mcg IH DAILY #30 cap.w.dev 11/10/18 Unknown Rx Warfarin [Coumadin] 7.5 mg PO DAILY@1700 #30 tablet 11/10/18 Unknown Rx predniSONE [Deltasone] 10 mg PO .TAPER #21 tab 11/10/18 Unknown Rx Review of Systems - Review of Systems All systems: negative (per HPI) Exam - Constitutional Vital Signs: Temp Pulse Resp BP Pulse Ox 97.4 F L 73 21 92/41 100 11/16/18 17:27 11/16/18 17:27 11/16/18 17:27 11/16/18 17:27 11/16/18 17:27 General appearance: no acute distress, obese - Neck Neck: supple, normal ROM - Respiratory Respiratory effort: normal Respiratory: bilateral: CTA - Cardiovascular Rhythm: regular Heart Sounds: Present: S1 & S2 Extremities: No edema - Gastrointestinal General gastrointestinal: Present: soft, non-distended, normal bowel sounds - Neurologic Neurological: alert and oriented x3 - Psychiatric Psychiatric: appropriate mood/affect - Labs CBC & Chem 7: 11/16/18 17:15 11/16/18 17:15 Lab Results: Laboratory Results - last 24 hr 11/16/18 11/16/18 11/16/18 17:07 17:15 17:15 WBC 17.9 H RBC 2.15 L Hgb 5.8 L* Hct 18.4 L* MCV 85 MCH 27 L MCHC 31 L RDW 19.4 H Plt Count 293 Add Manual Diff Complete Total Counted 100 Seg Neutrophils % Grain Elevator Operator Seg Neuts % (Manual) 93.0 H Band Neutrophils % 0 Lymphocytes % (Manual) 3.0 L Reactive Lymphs % (Man) 0 Monocytes % (Manual) 4.0 Eosinophils % (Manual) 0 Basophils % (Manual) 0 Metamyelocytes % 0 Myelocytes % 0 Promyelocytes % 0 Blast Cells % 0 Nucleated RBC % Not Reportable Seg Neutrophils # Man 16.6 H Band Neutrophils # 0.0 Lymphocytes # (Manual) 0.5 L Abs React Lymphs (Man) 0.0 Monocytes # (Manual) 0.7 Eosinophils # (Manual) 0.0 Basophils # (Manual) 0.0 Metamyelocytes # 0.0 Myelocytes # 0.0 Promyelocytes # 0.0 Blast Cells # 0.0 WBC Morphology Not Reportable Hypersegmented Neuts Not Reportable Hyposegmented Neuts Not Reportable Hypogranular Neuts Not Reportable Smudge Cells Not Reportable Toxic Granulation Not Reportable Toxic Vacuolation Not Reportable Dohle Bodies Not Reportable Pelger-Huet Anomaly Not Reportable Amanda Rods Not Reportable Platelet Estimate Appears normal Clumped Platelets Not Reportable Plt Clumps, EDTA Not Reportable Large Platelets Not Reportable Giant Platelets Not Reportable Platelet Satelliting Not Reportable Plt Morphology Comment Not Reportable RBC Morphology Not Reportable Dimorphic RBCs Not Reportable Polychromasia Not Reportable Hypochromasia Not Reportable Poikilocytosis Not Reportable Anisocytosis 1+ Microcytosis Not Reportable Macrocytosis Not Reportable Spherocytes Not Reportable Pappenheimer Bodies Not Reportable Sickle Cells Not Reportable Target Cells Not Reportable Tear Drop Cells Not Reportable Ovalocytes Few Helmet Cells Not Reportable Burton-Remer Bodies Not Reportable Mcdonough Rings Not Reportable Krissy Cells Not Reportable Bite Cells Not Reportable Crenated Cell Not Reportable Elliptocytes Not Reportable Acanthocytes (Spur) Not Reportable Rouleaux Not Reportable Hemoglobin C Crystals Not Reportable Schistocytes Not Reportable Malaria parasites Not Reportable Elias Bodies Not Reportable Hem Pathologist Commnt No PT 92.6 H INR 10.80 H* APTT 43.5 H Sodium Potassium Chloride Carbon Dioxide Anion Gap BUN Creatinine Estimated GFR BUN/Creatinine Ratio Glucose POC Glucose 254 H Calcium Total Bilirubin AST ALT Alkaline Phosphatase Total Protein Albumin Albumin/Globulin Ratio Blood Type Antibody Screen Crossmatch 11/16/18 11/16/18 17:15 17:15 WBC RBC Hgb Hct MCV MCH MCHC RDW Plt Count Add Manual Diff Total Counted Seg Neutrophils % Seg Neuts % (Manual) Band Neutrophils % Lymphocytes % (Manual) Reactive Lymphs % (Man) Monocytes % (Manual) Eosinophils % (Manual) Basophils % (Manual) Metamyelocytes % Myelocytes % Promyelocytes % Blast Cells % Nucleated RBC % Seg Neutrophils # Man Band Neutrophils # Lymphocytes # (Manual) Abs React Lymphs (Man) Monocytes # (Manual) Eosinophils # (Manual) Basophils # (Manual) Metamyelocytes # Myelocytes # Promyelocytes # Blast Cells # WBC Morphology Hypersegmented Neuts Hyposegmented Neuts Hypogranular Neuts Smudge Cells Toxic Granulation Toxic Vacuolation Dohle Bodies Pelger-Huet Anomaly Amanda Rods Platelet Estimate Clumped Platelets Plt Clumps, EDTA Large Platelets Giant Platelets Platelet Satelliting Plt Morphology Comment RBC Morphology Dimorphic RBCs Polychromasia Hypochromasia Poikilocytosis Anisocytosis Microcytosis Macrocytosis Spherocytes Pappenheimer Bodies Sickle Cells Target Cells Tear Drop Cells Ovalocytes Helmet Cells Burton-Remer Bodies [place]cdonough Rings Krissy Cells Bite Cells Crenated Cell Elliptocytes Acanthocytes (Spur) Rouleaux Hemoglobin C Crystals Schistocytes Malaria parasites Elias Bodies Hem Pathologist Commnt PT INR APTT Sodium 134 L Potassium 4.8 Chloride 100.0 Carbon Dioxide 19 L Anion Gap 20 BUN 38 H Creatinine 0.9 Estimated GFR > 60 BUN/Creatinine Ratio 42 Glucose 281 H POC Glucose Calcium 8.1 L Total Bilirubin 0.50 AST 23 ALT 44 Alkaline Phosphatase 77 Total Protein 4.7 L Albumin 2.7 L Albumin/Globulin Ratio 1.4 Blood Type A POSITIVE Antibody Screen Negative Crossmatch See Detail Assessment and Plan 1. GI bleed 2. Severe anemia 3. Supratherapetuic INR -reverse coagulapathy (vitamin K/FFP) tonight and transfuse blood transfusions to get hgb > 7 -BUN elevated, so will plan for EGD to initiate work-up tomorrow for GI bleed if INR < 2.5. -serial H/H and transfusions as needed -start PPI drip overnight as unable to rule out upper gi source.
[2018-11-16] MEDS ORDERED: NACL 0.9% 500 ML 500 ML ONE (21:19)
--- NOTE | 2018-11-16 22:41 | History and Physical Report ---
History of Present Illness Date of examination: 11/16/18 Date of admission: 11/16/18 21:43 History of present illness: 58-year-old man with a history of hypertension, diabetes, CHF, COPD, hyperl ipidemia, A. fib on coumadin comes to the emergency room with complaints of diarrhea that started yesterday. He said multiple episodes of diarrhea yesterday, continue until today. He also complained of dark stool, he thinks that it started yesterday. He feels weak. Patient was just discharged from the hospital on the 12 of this month Review of systems Constitutional: no weight loss, chills, fever Ears, eyes, nose, mouth and throat: no nasal congestion, no nasal discharge, no sinus pressure, no vision change, no red eye. Neck: No neck pain or rigidity. Cardiovascular: no palpitations, chest pain Respiratory: no cough, shortness of breath Gastrointestinal: no hematochezia, abdominal pain Genitourinary : no frequency , no hematuria Musculoskeletal: no joint swelling or muscle ache Integumentary: no rash, no pruritis Neurological: no parathesias, no focal weakness Endocrine: no cold or heat intolerance, no polyuria or polydipsia Hematologic/Lymphatic: no easy bruising, no easy bleeding, no gland swelling Allergic/Immunologic: no urticaria, no angioedema. PAST MEDICAL HISTORY:hypertension, diabetes, CHF, COPD, hyperlipidemia, A. fib, PVD PAST SURGICAL HISTORY: cholecystectomy,left leg vein bypass, transmetatarsal amputation of left leg, hernia repair SOCIAL HISTORY: Denies alcohol, drugs, smoke 8 cigarettes a day FAMILY HISTORY: Hypertension Past History Past Medical History: atrial fib Past Surgical History: No surgical history Social history: no significant social history Family history: no significant family history Medications and Allergies Allergies Allergy/AdvReac Type Severity Reaction Status Date / Time ketorolac tromethamine Allergy Vomiting Verified 01/31/17 05:38 [From Toradol] tramadol Allergy Vomiting Verified 01/31/17 05:38 Home Medications Medication Instructions Recorded Confirmed Last Taken Type ALPRAZolam [Xanax TAB] 0.5 mg PO TID PRN #10 tablet 11/17/17 11/17/18 Unknown Rx AtorvaSTATin [Lipitor] 40 mg PO QHS #30 11/17/17 11/17/18 11/14/17 Rx Gabapentin [Neurontin] 800 mg PO TID 08/02/18 11/17/18 Unknown History metFORMIN [Glucophage] 500 mg PO BID 11/08/18 11/17/18 Unknown History ALBUTEROL Inhaler(NF) [VENTOLIN 2 puff IH Q4H PRN #1 inha 11/10/18 11/17/18 Un known Rx Inhaler(NF)] ALBUTEROL NEB's [Proventil 0.083% 2.5 mg IH TID PRN #120 neb 11/10/18 11/17/18 Unknown Rx NEBS] Aspirin EC [Aspirin Enteric Coated 81 mg PO QDAY #30 tablet 11/10/18 11/17/18 Unknown Rx TAB] Clopidogrel [Plavix] 75 mg PO QDAY #30 tablet 11/10/18 11/17/18 Unknown Rx Digoxin [Lanoxin] 0.25 mg PO DAILY@1700 #30 tablet 11/10/18 11/17/18 Unknown Rx Diltiazem HCl [Diltiazem 24Hr Cd] 240 mg PO DAILY #30 cap.er.24h 11/10/18 11/17/18 Unknown Rx Fluticasone/Salmeterol [Advair 1 each IH BID #1 blst.w.dev 11/10/18 11/17/18 Unknown Rx 250-50 Diskus] Furosemide [Lasix TAB] 40 mg PO QDAY #30 tablet 11/10/18 11/17/18 Unknown Rx HYDROcodone/APAP 10-325 [[place] 1 each PO Q6H PRN #30 tablet 11/10/18 11/17/18 Unknown Rx 10-325 mg TAB] Pantoprazole [Protonix] 40 mg PO QDAY #30 tablet 11/10/18 11/17/18 Unknown Rx Tiotropium [place] [Spiriva] 18 mcg IH DAILY #30 cap.w.dev 11/10/18 11/17/18 Unknown Rx Warfarin [Coumadin] 7.5 mg PO DAILY@1700 #30 tablet 11/10/18 11/17/18 Unknown Rx predniSONE [Deltasone] 10 mg PO .TAPER #21 tab 11/10/18 11/17/18 Unknown Rx Exam - Physical Exam Narrative exam: General Apperance: The patient lying in bed, breathing comfortable HEENT: Normocephalic, atraumatic. Pupils equally round and reactive to light, EOMI, no sclericterus or JVD or thyromegaly or nodule. , no carotid bruit, mucous membranes moist, no exudate or erythema Heart: S1-S2, regular is rhythm Lungs: Clear to auscultation bilaterally, breathing comfortable Abdomen: Positive bowel sounds, soft, nontender, nondistended, no organomegaly Extremities: Left lower extremity wound, No edema cyanosis clubbing Skin: no rash, nodule, warm and dry Neuro: cranial nerves 2-12 intact, speech is fluent, motor/sensory intact - Constitutional Vitals: Temp Pulse Resp BP Pulse Ox 98.7 F 74 16 114/61 94 11/16/18 21:52 11/16/18 21:52 11/16/18 21:52 11/16/18 21:52 11/16/18 21:52 Results - Labs CBC & Chem 7: 11/23/18 05:43 11/23/18 05:43 Labs: Abnormal lab results 11/16/18 11/16/18 11/16/18 Range/Units 17:07 17:15 17:15 WBC 17.9 H (4.5-11.0) K/mm3 RBC 2.15 L (3.65-5.03) M/mm3 Hgb 5.8 L* (11.8-15.2) gm/dl Hct 18.4 L* (35.5-45.6) % MCH 27 L (28-32) pg MCHC 31 L (32-34) % RDW 19.4 H (13.2-15.2) % Seg Neuts % (Manual) 93.0 H (40.0-70.0) % Lymphocytes % (Manual) 3.0 L (13.4-35.0) % Seg Neutrophils # Man 16.6 H (1.8-7.7) K/mm3 Lymphocytes # (Manual) 0.5 L (1.2-5.4) K/mm3 PT 92.6 H (12.2-14.9) Sec. INR 10.80 H* (0.87-1.13) APTT 43.5 H (24.2-36.6) Sec. Sodium (137-145) mmol/L Carbon Dioxide (22-30) mmol/L BUN (9-20) mg/dL Glucose (75-100) mg/dL POC Glucose 254 H (70-105) Calcium (8.4-10.2) mg/dL Total Protein (6.3-8.2) g/dL Albumin (3.9-5) g/dL Crossmatch 11/16/18 11/16/18 Range/Units 17:15 17:15 WBC (4.5-11.0) K/mm3 RBC (3.65-5.03) M/mm3 Hgb (11.8-15.2) gm/dl Hct (35.5-45.6) % MCH (28-32) pg MCHC (32-34) % RDW (13.2-15.2) % Seg Neuts % (Manual) (40.0-70.0) % Lymphocytes % (Manual) (13.4-35.0) % Seg Neutrophils # Man (1.8-7.7) K/mm3 Lymphocytes # (Manual) (1.2-5.4) K/mm3 PT (12.2-14.9) Sec. INR (0.87-1.13) APTT (24.2-36.6) Sec. Sodium 134 L (137-145) mmol/L Carbon Dioxide 19 L (22-30) mmol/L BUN 38 H (9-20) mg/dL Glucose 281 H (75-100) mg/dL POC Glucose (70-105) Calcium 8.1 L (8.4-10.2) mg/dL Total Protein 4.7 L (6.3-8.2) g/dL Albumin 2.7 L (3.9-5) g/dL Crossmatch See Detail Assessment and Plan Assessment GI bleed, melena Blood loss anemia Coumadin toxicity hypertension diabetes Lower extremity wound CHF, Stable COPD hyperlipidemia, A. fib PVD Plan Admit to medicine transfuse red blood cells, FFP Follow hemoglobin, INR, start protonix GI consulted to see the patient, consult GI Check fingersticks, initiate insulin sliding-scale hold antihypertensives, blood pressure will not tolerate Continue appropiate outpatient medications Dvt to prophylaxis
[2018-11-16] MEDS ORDERED: TYLENOL PO PRN (23:29)
[2018-11-16] MEDS ORDERED: ZOFRAN IV PRN (23:29)
[2018-11-16] MEDS ORDERED: D50W (25GM) Syringe IV PRN (23:31)
[2018-11-17] MEDS ORDERED: PROTONIX IV ONE ×2 (01:04→09:42)
[2018-11-17] MEDS: PROTONIX IV SCH ×3 (01:16→22:22)
[2018-11-17 05:03] LABS: Basophils % (Auto) 0.1 % (0.0-1.8); Eosinophils # (Auto) 0.1 K/mm3 (0.0-0.4); Eosinophils % (Auto) 0.7 % (0.0-4.3); Hemoglobin 6.1 gm/dl (11.8-15.2); Lymphocytes # (Auto) 0.7 K/mm3 (1.2-5.4); Lymphocytes % (Auto) 5.2 % (13.4-35.0); Mean Corpuscular HGB Conc 32 % (32-34); Mean Corpuscular Volume 85 fl (84-94); Monocytes # (Auto) 0.8 K/mm3 (0.0-0.8); Monocytes % (Auto) 6.2 % (0.0-7.3); Platelet Count 246 K/mm3 (140-440); Red Blood Count 2.23 M/mm3 (3.65-5.03); Red Cell Distribution Width 18.3 % (13.2-15.2)
[2018-11-17 05:04] LABS: Hematocrit 20.1 % (35.5-45.6)
[2018-11-17 05:17] LABS: INR 3.62 (0.87-1.13)
[2018-11-17 05:23] LABS: BUN/Creatinine Ratio 39; Blood Urea Nitrogen 31 mg/dL (9-20); Calcium 7.7 mg/dL (8.4-10.2); Hemolysis Index 0
[2018-11-17 08:24] LABS: Hemoglobin 6.2 gm/dl (11.8-15.2)
[2018-11-17 08:30] LABS: Hematocrit 19.2 % (35.5-45.6)
[2018-11-17] MEDS ORDERED: NACL 0.9% 500 ML 500 ML ONE (09:24)
[2018-11-17] MEDS ORDERED: NACL 0.9% 500 ML 500 ML IV NR (09:30)
[2018-11-17] MEDS ORDERED: DULCOLAX PO ONE (10:39)
--- NOTE | 2018-11-17 10:39 | Gastroenterology Progress Note ---
Assessment and Plan 1. GI bleed 2. Supratherapeutic INR -INR 3.6 today. H/H stable after transfusion and repeat check. will prep patient today and plan for egd/colonoscopy tomorrow assuming INR will be < 2.5 at that time. cont PPI bid dosing for now. okay for clears today. Subjective Date of service: 11/17/18 Principal diagnosis: GI bleed Interval history: pt with an episode of bleeding overnight; none this morning. denies abd pain. no hematemesis. Objective - Constitutional Vitals: Temp Pulse Resp BP Pulse Ox 97.6 F 80 18 131/64 100 11/17/18 02:15 11/17/18 09:00 11/17/18 09:00 11/17/18 09:00 11/17/18 09:00 General appearance: no acute distress, obese - Respiratory Respiratory effort: normal Respiratory: bilateral: CTA - Cardiovascular Rhythm: regular Heart Sounds: Present: S1 & S2 - Gastrointestinal General gastrointestinal: Present: soft, non-tender, non-distended - Labs CBC & Chem 7: 11/17/18 08:08 11/17/18 04:52 Labs: Laboratory Results - last 24 hr 11/16/18 11/16/18 11/16/18 17:07 17:15 17:15 WBC 17.9 H RBC 2.15 L Hgb 5.8 L* Hct 18.4 L* MCV 85 MCH 27 L MCHC 31 L RDW 19.4 H Plt Count 293 Lymph % (Auto) [place] % (Auto) Eos % (Auto) Baso % (Auto) Lymph # [place] # Eos # Baso # Add Manual Diff Complete Total Counted 100 Seg Neutrophils % Wind Development Director Seg Neuts % (Manual) 93.0 H Band Neutrophils % 0 Lymphocytes % (Manual) 3.0 L Reactive Lymphs % (Man) 0 Monocytes % (Manual) 4.0 Eosinophils % (Manual) 0 Basophils % (Manual) 0 Metamyelocytes % 0 Myelocytes % 0 Promyelocytes % 0 Blast Cells % 0 Nucleated RBC % Not Reportable Seg Neutrophils # Seg Neutrophils # Man 16.6 H Band Neutrophils # 0.0 Lymphocytes # (Manual) 0.5 L Abs React Lymphs (Man) 0.0 Monocytes # (Manual) 0.7 Eosinophils # (Manual) 0.0 Basophils # (Manual) 0.0 Metamyelocytes # 0.0 Myelocytes # 0.0 Promyelocytes # 0.0 Blast Cells # 0.0 WBC Morphology Not Reportable Hypersegmented Neuts Not Reportable Hyposegmented Neuts Not Reportable Hypogranular Neuts Not Reportable Smudge Cells Not Reportable Toxic Granulation Not Reportable Toxic Vacuolation Not Reportable Dohle Bodies Not Reportable Pelger-Huet Anomaly Not Reportable Amanda Rods Not Reportable Platelet Estimate Appears normal Clumped Platelets Not Reportable Plt Clumps, EDTA Not Reportable Large Platelets Not Reportable Giant Platelets Not Reportable Platelet Satelliting Not Reportable Plt Morphology Comment Not Reportable RBC Morphology Not Reportable Dimorphic RBCs Not Reportable Polychromasia Not Reportable Hypochromasia Not Reportable Poikilocytosis Not Reportable Anisocytosis 1+ Microcytosis Not Reportable Macrocytosis Not Reportable Spherocytes Not Reportable Pappenheimer Bodies Not Reportable Sickle Cells Not Reportable Target Cells Not Reportable Tear Drop Cells Not Reportable Ovalocytes Few Helmet Cells Not Reportable [place] Bodies Not Reportable [place] Rings Not Reportable Krissy Cells Not Reportable Bite Cells Not Reportable Crenated Cell Not Reportable Elliptocytes Not Reportable Acanthocytes (Spur) Not Reportable Rouleaux Not Reportable Hemoglobin C Crystals Not Reportable Schistocytes Not Reportable Malaria parasites Not Reportable Elias Bodies Not Reportable Hem Pathologist Commnt No PT 92.6 H INR 10.80 H* APTT 43.5 H Sodium Potassium Chloride Carbon Dioxide Anion Gap BUN Creatinine Estimated GFR BUN/Creatinine Ratio Glucose POC Glucose 254 H Calcium Total Bilirubin AST ALT Alkaline Phosphatase Total Protein Albumin Albumin/Globulin Ratio Blood Type Antibody Screen Crossmatch 11/16/18 11/16/18 11/17/18 17:15 17:15 02:24 WBC RBC Hgb Hct MCV MCH MCHC RDW Plt Count Lymph % (Auto) [place] % (Auto) Eos % (Auto) Baso % (Auto) Lymph # [place] # Eos # Baso # Add Manual Diff Total Counted Seg Neutrophils % Seg Neuts % (Manual) Band Neutrophils % Lymphocytes % (Manual) Reactive Lymphs % (Man) Monocytes % (Manual) Eosinophils % (Manual) Basophils % (Manual) Metamyelocytes % Myelocytes % Promyelocytes % Blast Cells % Nucleated RBC % Seg Neutrophils # Seg Neutrophils # Man Band Neutrophils # Lymphocytes # (Manual) Abs React Lymphs (Man) Monocytes # (Manual) Eosinophils # (Manual) Basophils # (Manual) Metamyelocytes # Myelocytes # Promyelocytes # Blast Cells # WBC Morphology Hypersegmented Neuts Hyposegmented Neuts Hypogranular Neuts Smudge Cells Toxic Granulation Toxic Vacuolation Dohle Bodies Pelger-Huet Anomaly Amanda Rods Platelet Estimate Clumped Platelets Plt Clumps, EDTA Large Platelets Giant Platelets Platelet Satelliting Plt Morphology Comment RBC Morphology Dimorphic RBCs Polychromasia Hypochromasia Poikilocytosis Anisocytosis Microcytosis Macrocytosis Spherocytes Pappenheimer Bodies Sickle Cells Target Cells Tear Drop Cells Ovalocytes Helmet Cells [place] Bodies [place] Rings Krissy Cells Bite Cells Crenated Cell Elliptocytes Acanthocytes (Spur) Rouleaux Hemoglobin C Crystals Schistocytes Malaria parasites Elias Bodies Hem Pathologist Commnt PT INR APTT Sodium 134 L Potassium 4.8 Chloride 100.0 Carbon Dioxide 19 L Anion Gap 20 BUN 38 H Creatinine 0.9 Estimated GFR > 60 BUN/Creatinine Ratio 42 Glucose 281 H POC Glucose 266 H Calcium 8.1 L Total Bilirubin 0.50 AST 23 ALT 44 Alkaline Phosphatase 77 Total Protein 4.7 L Albumin 2.7 L Albumin/Globulin Ratio 1.4 Blood Type A POSITIVE Antibody Screen Negative Crossmatch See Detail 11/17/18 11/17/18 11/17/18 04:52 04:52 04:56 WBC 13.6 H RBC 2.23 L Hgb 6.1 L Hct 20.1 L MCV 85 MCH 27 L MCHC 32 RDW 18.3 H Plt Count 246 Lymph % (Auto) 5.2 L [place] % (Auto) 6.2 Eos % (Auto) 0.7 Baso % (Auto) 0.1 Lymph # 0.7 L [place] # 0.8 Eos # 0.1 Baso # 0.0 Add Manual Diff Total Counted Seg Neutrophils % 87.8 H Seg Neuts % (Manual) Band Neutrophils % Lymphocytes % (Manual) Reactive Lymphs % (Man) Monocytes % (Manual) Eosinophils % (Manual) Basophils % (Manual) Metamyelocytes % Myelocytes % Promyelocytes % Blast Cells % Nucleated RBC % Seg Neutrophils # 12.0 H Seg Neutrophils # Man Band Neutrophils # Lymphocytes # (Manual) Abs React Lymphs (Man) Monocytes # (Manual) Eosinophils # (Manual) Basophils # (Manual) Metamyelocytes # Myelocytes # Promyelocytes # Blast Cells # WBC Morphology Hypersegmented Neuts Hyposegmented Neuts Hypogranular Neuts Smudge Cells Toxic Granulation Toxic Vacuolation Dohle Bodies Pelger-Huet Anomaly Amanda Rods Platelet Estimate Clumped Platelets Plt Clumps, EDTA Large Platelets Giant Platelets Platelet Satelliting Plt Morphology Comment RBC Morphology Dimorphic RBCs Polychromasia Hypochromasia Poikilocytosis Anisocytosis Microcytosis Macrocytosis Spherocytes Pappenheimer Bodies Sickle Cells Target Cells Tear Drop Cells Ovalocytes Helmet Cells [place] Bodies [place] Rings [place] Cells Bite Cells Crenated Cell Elliptocytes Acanthocytes (Spur) Rouleaux Hemoglobin C Crystals Schistocytes Malaria parasites Elias Bodies Hem Pathologist Commnt PT 38.6 H INR 3.62 H APTT Sodium 138 Potassium 4.1 Chloride 104.2 Carbon Dioxide 24 Anion Gap 14 BUN 31 H Creatinine 0.8 Estimated GFR > 60 BUN/Creatinine Ratio 39 Glucose 216 H POC Glucose Calcium 7.7 L Total Bilirubin AST ALT Alkaline Phosphatase Total Protein Albumin Albumin/Globulin Ratio Blood Type Antibody Screen Crossmatch 11/17/18 08:08 WBC RBC Hgb 6.2 L Hct 19.2 L* MCV MCH MCHC RDW Plt Count Lymph % (Auto) [place] % (Auto) Eos % (Auto) Baso % (Auto) Lymph # [place] # Eos # Baso # Add Manual Diff Total Counted Seg Neutrophils % Seg Neuts % (Manual) Band Neutrophils % Lymphocytes % (Manual) Reactive Lymphs % (Man) Monocytes % (Manual) Eosinophils % (Manual) Basophils % (Manual) Metamyelocytes % Myelocytes % Promyelocytes % Blast Cells % Nucleated RBC % Seg Neutrophils # Seg Neutrophils # Man Band Neutrophils # Lymphocytes # (Manual) Abs React Lymphs (Man) Monocytes # (Manual) Eosinophils # (Manual) Basophils # (Manual) Metamyelocytes # Myelocytes # Promyelocytes # Blast Cells # WBC Morphology Hypersegmented Neuts Hyposegmented Neuts Hypogranular Neuts Smudge Cells Toxic Granulation Toxic Vacuolation Dohle Bodies Pelger-Huet Anomaly Amanda Rods Platelet Estimate Clumped Platelets Plt Clumps, EDTA Large Platelets Giant Platelets Platelet Satelliting Plt Morphology Comment RBC Morphology Dimorphic RBCs Polychromasia Hypochromasia Poikilocytosis Anisocytosis Microcytosis Macrocytosis Spherocytes Pappenheimer Bodies Sickle Cells Target Cells Tear Drop Cells Ovalocytes Helmet Cells [place] Bodies [place] Rings Krissy Cells Bite Cells Crenated Cell Elliptocytes Acanthocytes (Spur) Rouleaux Hemoglobin C Crystals Schistocytes Malaria parasites Elias Bodies Hem Pathologist Commnt PT INR APTT Sodium Potassium Chloride Carbon Dioxide Anion Gap BUN Creatinine Estimated GFR BUN/Creatinine Ratio Glucose POC Glucose Calcium Total Bilirubin AST ALT Alkaline Phosphatase Total Protein Albumin Albumin/Globulin Ratio Blood Type Antibody Screen Crossmatch
[2018-11-17] MEDS: SODIUM CHLORIDE FLUSH SYRINGE 10 ML IV SCH ×2 (11:18→22:22)
--- NOTE | 2018-11-17 16:41 | Progress Note ---
Assessment and Plan Assessment and plan: 57-year-old man with a history of hypertension, diabetes, CHF, COPD, hyperlipidemia, A. fib on coumadin comes to the emergency room with complaints of diarrhea that started yesterday. He said multiple episodes of diarrhea yesterday, continue until today. He also complained of dark stool, he thinks that it started yesterday. He feels weak. Patient was just discharged from the hospital on the 12 of this month GI bleed, melena Blood loss anemia Coumadin toxicity hypertension diabetes Lower extremity wound Secondary coagulopathy, INR CHF, Stable COPD hyperlipidemia, A. fib PVD Plan Continue supportive care. Plan for possible EGD/COLONOSCOPY s/p PRBC and FFP Follow hemoglobin, INR, Continue protonix GI consulted to see the patient and input noted Check fingersticks, initiate insulin sliding-scale hold antihypertensives, blood pressure will not tolerate Continue appropriate outpatient medications Dvt to prophylaxis History Interval history: Patient seen and examined today in no acute distress although appears a little irritated. Denies any chest pain nausea vomiting. Very poor historian. He is unaware of the medications that he takes at home. He reports generalized edema but is unsure as to when this started. At some point she mentioned that he started since he has been here in the hospital. Hospitalist Physical - Physical exam Narrative exam: General Apperance: The patient lying in bed, breathing comfortable HEENT: Normocephalic, atraumatic. Pupils equally round and reactive to light, EOMI, no sclericterus or JVD or thyromegaly or nodule. , no carotid bruit, mucous membranes moist, no exudate or erythema Heart: S1-S2, regular is rhythm Lungs: Clear to auscultation bilaterally, breathing comfortable Abdomen: Positive bowel sounds, soft, nontender, nondistended, no organomegaly Extremities: Left lower extremity wound, No cyanosis clubbing, transmetatarsal amputation. trace generalized edema Skin: multiple lesions on the skin. Neuro: cranial nerves 2-12 intact, speech is fluent, motor/sensory intact - Constitutional Vitals: Temp Pulse Resp BP Pulse Ox 98.3 F 79 18 121/63 99 11/17/18 15:20 11/17/18 15:20 11/17/18 15:20 11/17/18 15:20 11/17/18 15:33 Results - Labs CBC & Chem 7: 11/17/18 20:08 11/17/18 04:52 Labs: Laboratory Last Values WBC 13.6 K/mm3 (4.5-11.0) H 11/17/18 04:56 RBC 2.23 M/mm3 (3.65-5.03) L 11/17/18 04:56 Hgb 6.2 gm/dl (11.8-15.2) L 11/17/18 08:08 Hct 19.2 % (35.5-45.6) L* 11/17/18 08:08 MCV 85 fl (84-94) 11/17/18 04:56 MCH 27 pg (28-32) L 11/17/18 04:56 MCHC 32 % (32-34) 11/17/18 04:56 RDW 18.3 % (13.2-15.2) H 11/17/18 04:56 Plt Count 246 K/mm3 (140-440) 11/17/18 04:56 Lymph % (Auto) 5.2 % (13.4-35.0) L 11/17/18 04:56 [place] % (Auto) 6.2 % (0.0-7.3) 11/17/18 04:56 Eos % (Auto) 0.7 % (0.0-4.3) 11/17/18 04:56 Baso % (Auto) 0.1 % (0.0-1.8) 11/17/18 04:56 Lymph # 0.7 K/mm3 (1.2-5.4) L 11/17/18 04:56 [place] # 0.8 K/mm3 (0.0-0.8) 11/17/18 04:56 Eos # 0.1 K/mm3 (0.0-0.4) 11/17/18 04:56 Baso # 0.0 K/mm3 (0.0-0.1) 11/17/18 04:56 Add Manual Diff Complete 11/16/18 17:15 Total Counted 100 11/16/18 17:15 Seg Neutrophils % 87.8 % (40.0-70.0) H 11/17/18 04:56 Seg Neuts % (Manual) 93.0 % (40.0-70.0) H 11/16/18 17:15 Band Neutrophils % 0 % 11/16/18 17:15 Lymphocytes % (Manual) 3.0 % (13.4-35.0) L 11/16/18 17:15 Reactive Lymphs % (Man) 0 % 11/16/18 17:15 Monocytes % (Manual) 4.0 % (0.0-7.3) 11/16/18 17:15 Eosinophils % (Manual) 0 % (0.0-4.3) 11/16/18 17:15 Basophils % (Manual) 0 % (0.0-1.8) 11/16/18 17:15 Metamyelocytes % 0 % 11/16/18 17:15 Myelocytes % 0 % 11/16/18 17:15 Promyelocytes % 0 % 11/16/18 17:15 Blast Cells % 0 % 11/16/18 17:15 Nucleated RBC % Not Reportable 11/16/18 17:15 Seg Neutrophils # 12.0 K/mm3 (1.8-7.7) H 11/17/18 04:56 Seg Neutrophils # Man 16.6 K/mm3 (1.8-7.7) H 11/16/18 17:15 Band Neutrophils # 0.0 K/mm3 11/16/18 17:15 Lymphocytes # (Manual) 0.5 K/mm3 (1.2-5.4) L 11/16/18 17:15 Abs React Lymphs (Man) 0.0 K/mm3 11/16/18 17:15 Monocytes # (Manual) 0.7 K/mm3 (0.0-0.8) 11/16/18 17:15 Eosinophils # (Manual) 0.0 K/mm3 (0.0-0.4) 11/16/18 17:15 Basophils # (Manual) 0.0 K/mm3 (0.0-0.1) 11/16/18 17:15 Metamyelocytes # 0.0 K/mm3 11/16/18 17:15 Myelocytes # 0.0 K/mm3 11/16/18 17:15 Promyelocytes # 0.0 K/mm3 11/16/18 17:15 Blast Cells # 0.0 K/mm3 11/16/18 17:15 WBC Morphology Not Reportable 11/16/18 17:15 Hypersegmented Neuts Not Reportable 11/16/18 17:15 Hyposegmented Neuts Not Reportable 11/16/18 17:15 Hypogranular Neuts Not Reportable 11/16/18 17:15 Smudge Cells Not Reportable 11/16/18 17:15 Toxic Granulation Not Reportable 11/16/18 17:15 Toxic Vacuolation Not Reportable 11/16/18 17:15 Dohle Bodies Not Reportable 11/16/18 17:15 Pelger-Huet Anomaly Not Reportable 11/16/18 17:15 Amanda Rods Not Reportable 11/16/18 17:15 Platelet Estimate Appears normal 11/16/18 17:15 Clumped Platelets Not Reportable 11/16/18 17:15 Plt Clumps, EDTA Not Reportable 11/16/18 17:15 Large Platelets Not Reportable 11/16/18 17:15 Giant Platelets Not Reportable 11/16/18 17:15 Platelet Satelliting Not Reportable 11/16/18 17:15 Plt Morphology Comment Not Reportable 11/16/18 17:15 RBC Morphology Not Reportable 11/16/18 17:15 Dimorphic RBCs Not Reportable 11/16/18 17:15 Polychromasia Not Reportable 11/16/18 17:15 Hypochromasia Not Reportable 11/16/18 17:15 Poikilocytosis Not Reportable 11/16/18 17:15 Anisocytosis 1+ 11/16/18 17:15 Microcytosis Not Reportable 11/16/18 17:15 Macrocytosis Not Reportable 11/16/18 17:15 Spherocytes Not Reportable 11/16/18 17:15 Pappenheimer Bodies Not Reportable 11/16/18 17:15 Sickle Cells Not Reportable 11/16/18 17:15 Target Cells Not Reportable 11/16/18 17:15 Tear Drop Cells Not Reportable 11/16/18 17:15 Ovalocytes Few 11/16/18 17:15 Helmet Cells Not Reportable 11/16/18 17:15 [place] Bodies Not Reportable 11/16/18 17:15 [place] Rings Not Reportable 11/16/18 17:15 Krissy Cells Not Reportable 11/16/18 17:15 Bite Cells Not Reportable 11/16/18 17:15 Crenated Cell Not Reportable 11/16/18 17:15 Elliptocytes Not Reportable 11/16/18 17:15 Acanthocytes (Spur) Not Reportable 11/16/18 17:15 Rouleaux Not Reportable 11/16/18 17:15 Hemoglobin C Crystals Not Reportable 11/16/18 17:15 Schistocytes Not Reportable 11/16/18 17:15 Malaria parasites Not Reportable 11/16/18 17:15 Elias Bodies Not Reportable 11/16/18 17:15 Hem Pathologist Commnt No 11/16/18 17:15 PT 38.6 Sec. (12.2-14.9) H 11/17/18 04:52 INR 3.62 (0.87-1.13) H 11/17/18 04:52 APTT 43.5 Sec. (24.2-36.6) H 11/16/18 17:15 Sodium 138 mmol/L (137-145) 11/17/18 04:52 Potassium 4.1 mmol/L (3.6-5.0) 11/17/18 04:52 Chloride 104.2 mmol/L (98-107) 11/17/18 04:52 Carbon Dioxide 24 mmol/L (22-30) 11/17/18 04:52 Anion Gap 14 mmol/L 11/17/18 04:52 BUN 31 mg/dL (9-20) H 11/17/18 04:52 Creatinine 0.8 mg/dL (0.8-1.5) 11/17/18 04:52 Estimated GFR > 60 ml/min 11/17/18 04:52 BUN/Creatinine Ratio 39 % 11/17/18 04:52 Glucose 216 mg/dL (75-100) H 11/17/18 04:52 POC Glucose 266 (70-105) H 11/17/18 02:24 Calcium 7.7 mg/dL (8.4-10.2) L 11/17/18 04:52 Total Bilirubin 0.50 mg/dL (0.1-1.2) 11/16/18 17:15 AST 23 units/L (5-40) 11/16/18 17:15 ALT 44 units/L (7-56) 11/16/18 17:15 Alkaline Phosphatase 77 units/L (35-129) 11/16/18 17:15 Total Protein 4.7 g/dL (6.3-8.2) L 11/16/18 17:15 Albumin 2.7 g/dL (3.9-5) L 11/16/18 17:15 Albumin/Globulin Ratio 1.4 % 11/16/18 17:15 Blood Type A POSITIVE 11/16/18 17:15 Antibody Screen Negative 11/16/18 17:15 Crossmatch See Detail 11/16/18 17:15 Active Medications - Current Medications Current Medications: Generic Name Dose Route Start Last Admin Trade Name Freq PRN Reason Stop Dose Admin Acetaminophen 650 mg 11/16/18 23:29 11/17/18 15:31 Tylenol PO 650 mg Q4H PRN Administration Pain MILD(1-3)/Fever >100.5/MORROW Dextrose 50 ml 11/16/18 23:31 D50w (25gm) Syringe IV PRN PRN Hypoglycemia Sodium Chloride 500 mls @ 0 mls/hr 11/17/18 09:30 Nacl 0.9% 500 Ml IV 11/17/18 18:00 ONCE NR As Directed Ondansetron HCl 4 mg 11/16/18 23:29 Zofran IV Q8H PRN Nausea And Vomiting Pantoprazole Sodium 40 mg 11/16/18 23:45 11/17/18 10:00 Protonix IV 40 mg BID RAJAT Administration Polyethylene Glycol/Electrolytes 4,000 ml 11/17/18 17:00 Golytely PO 11/17/18 17:01 ONCE ONE Sodium Chloride 10 ml 11/17/18 10:00 11/17/18 11:18 Sodium Chloride Flush Syringe 10 Ml IV 10 ml BID RAJAT Administration Sodium Chloride 10 ml 11/16/18 23:29 Sodium Chloride Flush Syringe 10 Ml IV PRN PRN LINE FLUSH
[2018-11-17] MEDS ORDERED: GOLYTELY PO ONE (17:00)
[2018-11-17 20:17] LABS: Hematocrit 21.2 % (35.5-45.6); Hemoglobin 7.1 gm/dl (11.8-15.2)
[2018-11-17] MEDS: NORCO 5/325 PO PRN (22:20)
[2018-11-18] MEDS: NORCO 5/325 PO PRN ×3 (04:32→22:40)
[2018-11-18 08:35] LABS: Hemoglobin 6.7 gm/dl (11.8-15.2); Mean Corpuscular HGB Conc 32 % (32-34); Mean Corpuscular Volume 87 fl (84-94); Platelet Count 208 K/mm3 (140-440); Red Blood Count 2.41 M/mm3 (3.65-5.03); Red Cell Distribution Width 18.1 % (13.2-15.2)
[2018-11-18 08:36] LABS: BUN/Creatinine Ratio 23; Blood Urea Nitrogen 16 mg/dL (9-20); Hemolysis Index 0
[2018-11-18 10:07] LABS: INR 1.66 (0.87-1.13)
--- NOTE | 2018-11-18 10:22 | Progress Note ---
Assessment and Plan Assessment and plan: 57-year-old man with a history of hypertension, diabetes, CHF, COPD, hyperlipidemia, A. fib on coumadin comes to the emergency room with complaints of diarrhea that started yesterday. He said multiple episodes of diarrhea yesterday, continue until today. He also complained of dark stool, he thinks that it started yesterday. He feels weak. Patient was just discharged from the hospital on the 12 of this month Wound vac in place, left lower ext GI bleed, melena Blood loss anemia Coumadin toxicity hypertension diabetes Lower extremity wound Secondary coagulopathy, INR CHF, Stable COPD hyperlipidemia, A. fib PVD Plan Continue supportive care. Plan for possible EGD/COLONOSCOPY s/p PRBC and FFP Follow hemoglobin, INR, Continue protonix GI consulted to see the patient and input noted Check fingersticks, initiate insulin sliding-scale hold antihypertensives, blood pressure will not tolerate Continue appropriate outpatient medications Dvt to prophylaxis History Interval history: Patient seen and examined today in no acute distress although appears a little irritated. Denies any chest pain nausea vomiting. Very poor historian. He is unaware of the medications that he takes at home. He reports generalized edema but is unsure as to when this started. At some point she mentioned that he started since he has been here in the hospital. Hospitalist Physical - Physical exam Narrative exam: General Apperance: The patient lying in bed, breathing comfortable HEENT: Normocephalic, atraumatic. Pupils equally round and reactive to light, EOMI, no sclericterus or JVD or thyromegaly or nodule. , no carotid bruit, mucous membranes moist, no exudate or erythema Heart: S1-S2, regular is rhythm Lungs: Clear to auscultation bilaterally, breathing comfortable Abdomen: Positive bowel sounds, soft, nontender, nondistended, no organomegaly Extremities: Left lower extremity wound, No cyanosis clubbing, transmetatarsal amputation. trace generalized edema Skin: multiple lesions on the skin. Neuro: cranial nerves 2-12 intact, speech is fluent, motor/sensory intact - Constitutional Vitals: Temp Pulse Resp BP Pulse Ox 97.8 F 79 18 115/57 95 11/18/18 05:14 11/18/18 07:53 11/18/18 05:14 11/18/18 05:14 11/18/18 05:14 Results - Labs CBC & Chem 7: 11/19/18 09:36 11/19/18 09:36 Labs: Laboratory Last Values WBC 11.2 K/mm3 (4.5-11.0) H 11/18/18 07:31 RBC 2.41 M/mm3 (3.65-5.03) L 11/18/18 07:31 Hgb 6.7 gm/dl (11.8-15.2) L 11/18/18 07:31 Hct 21.0 % (35.5-45.6) L 11/18/18 07:31 MCV 87 fl (84-94) 11/18/18 07:31 MCH 28 pg (28-32) 11/18/18 07:31 MCHC 32 % (32-34) 11/18/18 07:31 RDW 18.1 % (13.2-15.2) H 11/18/18 07:31 Plt Count 208 K/mm3 (140-440) 11/18/18 07:31 Lymph % (Auto) 5.2 % (13.4-35.0) L 11/17/18 04:56 [place] % (Auto) 6.2 % (0.0-7.3) 11/17/18 04:56 Eos % (Auto) 0.7 % (0.0-4.3) 11/17/18 04:56 Baso % (Auto) 0.1 % (0.0-1.8) 11/17/18 04:56 Lymph # 0.7 K/mm3 (1.2-5.4) L 11/17/18 04:56 [place] # 0.8 K/mm3 (0.0-0.8) 11/17/18 04:56 Eos # 0.1 K/mm3 (0.0-0.4) 11/17/18 04:56 Baso # 0.0 K/mm3 (0.0-0.1) 11/17/18 04:56 Add Manual Diff Complete 11/16/18 17:15 Total Counted 100 11/16/18 17:15 Seg Neutrophils % 87.8 % (40.0-70.0) H 11/17/18 04:56 Seg Neuts % (Manual) 93.0 % (40.0-70.0) H 11/16/18 17:15 Band Neutrophils % 0 % 11/16/18 17:15 Lymphocytes % (Manual) 3.0 % (13.4-35.0) L 11/16/18 17:15 Reactive Lymphs % (Man) 0 % 11/16/18 17:15 Monocytes % (Manual) 4.0 % (0.0-7.3) 11/16/18 17:15 Eosinophils % (Manual) 0 % (0.0-4.3) 11/16/18 17:15 Basophils % (Manual) 0 % (0.0-1.8) 11/16/18 17:15 Metamyelocytes % 0 % 11/16/18 17:15 Myelocytes % 0 % 11/16/18 17:15 Promyelocytes % 0 % 11/16/18 17:15 Blast Cells % 0 % 11/16/18 17:15 Nucleated RBC % Not Reportable 11/16/18 17:15 Seg Neutrophils # 12.0 K/mm3 (1.8-7.7) H 11/17/18 04:56 Seg Neutrophils # Man 16.6 K/mm3 (1.8-7.7) H 11/16/18 17:15 Band Neutrophils # 0.0 K/mm3 11/16/18 17:15 Lymphocytes # (Manual) 0.5 K/mm3 (1.2-5.4) L 11/16/18 17:15 Abs React Lymphs (Man) 0.0 K/mm3 11/16/18 17:15 Monocytes # (Manual) 0.7 K/mm3 (0.0-0.8) 11/16/18 17:15 Eosinophils # (Manual) 0.0 K/mm3 (0.0-0.4) 11/16/18 17:15 Basophils # (Manual) 0.0 K/mm3 (0.0-0.1) 11/16/18 17:15 Metamyelocytes # 0.0 K/mm3 11/16/18 17:15 Myelocytes # 0.0 K/mm3 11/16/18 17:15 Promyelocytes # 0.0 K/mm3 11/16/18 17:15 Blast Cells # 0.0 K/mm3 11/16/18 17:15 WBC Morphology Not Reportable 11/16/18 17:15 Hypersegmented Neuts Not Reportable 11/16/18 17:15 Hyposegmented Neuts Not Reportable 11/16/18 17:15 Hypogranular Neuts Not Reportable 11/16/18 17:15 Smudge Cells Not Reportable 11/16/18 17:15 Toxic Granulation Not Reportable 11/16/18 17:15 Toxic Vacuolation Not Reportable 11/16/18 17:15 Dohle Bodies Not Reportable 11/16/18 17:15 Pelger-Huet Anomaly Not Reportable 11/16/18 17:15 Amanda Rods Not Reportable 11/16/18 17:15 Platelet Estimate Appears normal 11/16/18 17:15 Clumped Platelets Not Reportable 11/16/18 17:15 Plt Clumps, EDTA Not Reportable 11/16/18 17:15 Large Platelets Not Reportable 11/16/18 17:15 Giant Platelets Not Reportable 11/16/18 17:15 Platelet Satelliting Not Reportable 11/16/18 17:15 Plt Morphology Comment Not Reportable 11/16/18 17:15 RBC Morphology Not Reportable 11/16/18 17:15 Dimorphic RBCs Not Reportable 11/16/18 17:15 Polychromasia Not Reportable 11/16/18 17:15 Hypochromasia Not Reportable 11/16/18 17:15 Poikilocytosis Not Reportable 11/16/18 17:15 Anisocytosis 1+ 11/16/18 17:15 Microcytosis Not Reportable 11/16/18 17:15 Macrocytosis Not Reportable 11/16/18 17:15 Spherocytes Not Reportable 11/16/18 17:15 Pappenheimer Bodies Not Reportable 11/16/18 17:15 Sickle Cells Not Reportable 11/16/18 17:15 Target Cells Not Reportable 11/16/18 17:15 Tear Drop Cells Not Reportable 11/16/18 17:15 Ovalocytes Few 11/16/18 17:15 Helmet Cells Not Reportable 11/16/18 17:15 [place] Bodies Not Reportable 11/16/18 17:15 [place] Rings Not Reportable 11/16/18 17:15 Krissy Cells Not Reportable 11/16/18 17:15 Bite Cells Not Reportable 11/16/18 17:15 Crenated Cell Not Reportable 11/16/18 17:15 Elliptocytes Not Reportable 11/16/18 17:15 Acanthocytes (Spur) Not Reportable 11/16/18 17:15 Rouleaux Not Reportable 11/16/18 17:15 Hemoglobin C Crystals Not Reportable 11/16/18 17:15 Schistocytes Not Reportable 11/16/18 17:15 Malaria parasites Not Reportable 11/16/18 17:15 Elias Bodies Not Reportable 11/16/18 17:15 Hem Pathologist Commnt No 11/16/18 17:15 PT 20.7 Sec. (12.2-14.9) H 11/18/18 09:42 INR 1.66 (0.87-1.13) H 11/18/18 09:42 APTT 43.5 Sec. (24.2-36.6) H 11/16/18 17:15 Sodium 138 mmol/L (137-145) 11/18/18 07:31 Potassium 4.0 mmol/L (3.6-5.0) 11/18/18 07:31 Chloride 103.4 mmol/L (98-107) 11/18/18 07:31 Carbon Dioxide 24 mmol/L (22-30) 11/18/18 07:31 Anion Gap 15 mmol/L 11/18/18 07:31 BUN 16 mg/dL (9-20) 11/18/18 07:31 Creatinine 0.7 mg/dL (0.8-1.5) L 11/18/18 07:31 Estimated GFR > 60 ml/min 11/18/18 07:31 BUN/Creatinine Ratio 23 % 11/18/18 07:31 Glucose 221 mg/dL (75-100) H 11/18/18 07:31 POC Glucose 335 (70-105) H 11/18/18 00:07 Calcium 8.0 mg/dL (8.4-10.2) L 11/18/18 07:31 Total Bilirubin 0.50 mg/dL (0.1-1.2) 11/16/18 17:15 AST 23 units/L (5-40) 11/16/18 17:15 ALT 44 units/L (7-56) 11/16/18 17:15 Alkaline Phosphatase 77 units/L (35-129) 11/16/18 17:15 Total Protein 4.7 g/dL (6.3-8.2) L 11/16/18 17:15 Albumin 2.7 g/dL (3.9-5) L 11/16/18 17:15 Albumin/Globulin Ratio 1.4 % 11/16/18 17:15 Blood Type A POSITIVE 11/16/18 17:15 Antibody Screen Negative 11/16/18 17:15 Crossmatch See Detail 11/16/18 17:15 Active Medications - Current Medications Current Medications: Generic Name Dose Route Start Last Admin Trade Name Freq PRN Reason Stop Dose Admin Acetaminophen 650 mg 11/16/18 23:29 11/17/18 15:31 Tylenol PO 650 mg Q4H PRN Administration Pain MILD(1-3)/Fever >100.5/MORROW Acetaminophen/Hydrocodone Bitart 1 each 11/17/18 21:37 11/18/18 04:32 [place] 5/325 PO 1 each Q6H PRN Administration Pain, Moderate (4-6) Dextrose 50 ml 11/16/18 23:31 D50w (25gm) Syringe IV PRN PRN Hypoglycemia Ondansetron HCl 4 mg 11/16/18 23:29 Zofran IV Q8H PRN Nausea And Vomiting Pantoprazole Sodium 40 mg 11/16/18 23:45 11/17/18 22:22 Protonix IV 40 mg BID RAJAT Administration Sodium Chloride 10 ml 11/17/18 10:00 11/17/18 22:22 Sodium Chloride Flush Syringe 10 Ml IV 10 ml BID RAJAT Administration Sodium Chloride 10 ml 11/16/18 23:29 Sodium Chloride Flush Syringe 10 Ml IV PRN PRN LINE FLUSH
--- NOTE | 2018-11-18 10:46 | Consultation ---
History of Present Illness - Reason for Consult Consult date: 11/18/18 peripheral vascular disease - History of Present Illness Patient with a history of peripheral vascular disease status post revascularization on the left. Ultimately, he will require revascularization on the right however the patient presented with GI bleed and a supratherapeutic INR of 10.8. No complaints at time of examination. Past History Past Medical History: atrial fib, PVD Past Surgical History: No surgical history, Other (lower extremity revascu larization procedure) Social history: no significant social history Family history: no significant family history Medications and Allergies Allergies Allergy/AdvReac Type Severity Reaction Status Date / Time ketorolac tromethamine Allergy Vomiting Verified 01/31/17 05:38 [From Toradol] tramadol Allergy Vomiting Verified 01/31/17 05:38 Home Medications Medication Instructions Recorded Confirmed Last Taken Type ALPRAZolam [Xanax TAB] 0.5 mg PO TID PRN #10 tablet 11/17/17 11/17/18 Unknown Rx AtorvaSTATin [Lipitor] 40 mg PO QHS #30 11/17/17 11/17/18 11/14/17 Rx Gabapentin [Neurontin] 800 mg PO TID 08/02/18 11/17/18 Unknown History metFORMIN [Glucophage] 500 mg PO BID 11/08/18 11/17/18 Unknown History ALBUTEROL Inhaler(NF) [VENTOLIN 2 puff IH Q4H PRN #1 inha 11/10/18 11/17/18 Unknown Rx Inhaler(NF)] ALBUTEROL NEB's [Proventil 0.083% 2.5 mg IH TID PRN #120 neb 11/10/18 11/17/18 Unknown Rx NEBS] Aspirin EC [Aspirin Enteric Coated 81 mg PO QDAY #30 tablet 11/10/18 11/17/18 Unknown Rx TAB] Clopidogrel [Plavix] 75 mg PO QDAY #30 tablet 11/10/18 11/17/18 Unknown Rx Digoxin [Lanoxin] 0.25 mg PO DAILY@1700 #30 tablet 11/10/18 11/17/18 Unknown Rx Diltiazem HCl [Diltiazem 24Hr Cd] 240 mg PO DAILY #30 cap.er.24h 11/10/18 11/17/18 Unknown Rx Fluticasone/Salmeterol [Advair 1 each IH BID #1 blst.w.dev 11/10/18 11/17/18 Unknown Rx 250-50 Diskus] Furosemide [Lasix TAB] 40 mg PO QDAY #30 tablet 11/10/18 11/17/18 Unknown Rx HYDROcodone/APAP 10-325 [[place] 1 each PO Q6H PRN #30 tablet 11/10/18 11/17/18 Unknown Rx 10-325 mg TAB] Pantoprazole [Protonix] 40 mg PO QDAY #30 tablet 11/10/18 11/17/18 Unknown Rx Tiotropium [place] [Spiriva] 18 mcg IH DAILY #30 cap.w.dev 11/10/18 11/17/18 Unknown Rx Warfarin [Coumadin] 7.5 mg PO DAILY@1700 #30 tablet 11/10/18 11/17/18 Unknown Rx predniSONE [Deltasone] 10 mg PO .TAPER #21 tab 11/10/18 11/17/18 Unknown Rx Active Meds: Active Medications Acetaminophen (Tylenol) 650 mg PO Q4H PRN PRN Reason: Pain MILD(1-3)/Fever >100.5/MORROW Last Admin: 11/17/18 15:31 Dose: 650 mg Documented by: Acetaminophen/Hydrocodone Bitart ([place] 5/325) 1 each PO Q6H PRN PRN Reason: Pain, Moderate (4-6) Last Admin: 11/18/18 04:32 Dose: 1 each Documented by: Dextrose (D50w (25gm) Syringe) 50 ml IV PRN PRN PRN Reason: Hypoglycemia Ondansetron HCl (Zofran) 4 mg IV Q8H PRN PRN Reason: Nausea And Vomiting Pantoprazole Sodium (Protonix) 40 mg IV BID [facility] Last Admin: 11/17/18 22:22 Dose: 40 mg Documented by: Sodium Chloride (Sodium Chloride Flush Syringe 10 Ml) 10 ml IV BID [facility] Last Admin: 11/17/18 22:22 Dose: 10 ml Documented by: Sodium Chloride (Sodium Chloride Flush Syringe 10 Ml) 10 ml IV PRN PRN PRN Reason: LINE FLUSH Review of Systems All systems: negative Exam - Constitutional Vitals: Temp Pulse Resp BP Pulse Ox 97.8 F 79 18 115/57 95 11/18/18 05:14 11/18/18 07:53 11/18/18 05:14 11/18/18 05:14 11/18/18 05:14 General appearance: Present: no acute distress - EENT Eyes: Present: EOM intact ENT: hearing intact - Neck Neck: Present: supple, normal ROM - Respiratory Respiratory effort: normal - Extremities Extremities: abnormal - Abdominal General gastrointestinal: Present: deferred Male genitourinary: Present: deferred - Rectal Rectal Exam: deferred - Psychiatric Psychiatric: appropriate mood/affect, cooperative Results - Labs CBC & Chem 7: 11/18/18 07:31 11/18/18 07:31 Labs: Abnormal lab results 11/16/18 11/17/18 11/17/18 Range/Units 17:15 15:26 20:08 WBC (4.5-11.0) K/mm3 RBC (3.65-5.03) M/mm3 Hgb 7.1 L (11.8-15.2) gm/dl Hct 21.2 L (35.5-45.6) % RDW (13.2-15.2) % PT (12.2-14.9) Sec. INR (0.87-1.13) Creatinine (0.8-1.5) mg/dL Glucose (75-100) mg/dL POC Glucose 265 H (70-105) Calcium (8.4-10.2) mg/dL Crossmatch See Detail 11/17/18 11/18/18 11/18/18 Range/Units 21:03 00:07 07:31 WBC 11.2 H (4.5-11.0) K/mm3 RBC 2.41 L (3.65-5.03) M/mm3 Hgb 6.7 L (11.8-15.2) gm/dl Hct 21.0 L (35.5-45.6) % RDW 18.1 H (13.2-15.2) % PT (12.2-14.9) Sec. INR (0.87-1.13) Creatinine (0.8-1.5) mg/dL Glucose (75-100) mg/dL POC Glucose 353 H 335 H (70-105) Calcium (8.4-10.2) mg/dL Crossmatch 11/18/18 11/18/18 Range/Units 07:31 09:42 WBC (4.5-11.0) K/mm3 RBC (3.65-5.03) M/mm3 Hgb (11.8-15.2) gm/dl Hct (35.5-45.6) % RDW (13.2-15.2) % PT 20.7 H (12.2-14.9) Sec. INR 1.66 H (0.87-1.13) Creatinine 0.7 L (0.8-1.5) mg/dL Glucose 221 H (75-100) mg/dL POC Glucose (70-105) Calcium 8.0 L (8.4-10.2) mg/dL Crossmatch Assessment and Plan Patient with peripheral vascular disease and GI bleed on supratherapeutic INR. His INR is within the normal range today. The patient has a plan colonoscopy to determine the source of his GI bleed. We will likely treat his peripheral vascular disease on the left as an outpatient following resolution of his GI bleed.
[2018-11-18] MEDS ORDERED: DIPRIVAN 10 MG/ML IV ONE ×2 (11:37)
[2018-11-18] MEDS ORDERED: NACL 0.9% 1000 ML 1,000 ML ONE (12:34)
--- NOTE | 2018-11-18 12:56 | Post Operative Note ---
Pre-op diagnosis: gi bleed Post-op diagnosis: same Findings: EGD: hiatal hernia - mild gastritis - negative other Colon: 6-10 mm polyp x 2 transverse (hot snare) - mild diverticulosis - internal hemorrhoids Procedure: EGD/colonoscopy Anesthesia: MAC Surgeon: CODY MUNSON Estimated blood loss: none Pathology: list Specimen disposition: to lab Condition: stable Disposition: floor
--- NOTE | 2018-11-18 13:14 | Operative Report ---
PROCEDURE: EGD. INDICATION: 1. Anemia. 2. GI bleed. MEDICATIONS: Propofol per EXCHANGE TROUBLE SHOOTER. COMPLICATIONS: None. DESCRIPTION OF PROCEDURE: The patient brought to the procedure suite. The patient had the procedure discussed with him at length. All risks, complications, and benefits discussed after which the patient signed for the procedure to be performed. The patient was placed in left lateral decubitus position. Mouth block was placed in the patient's oral cavity. After adequate sedation medication as above, endoscope was placed in the mouth and brought to the level of the second portion of duodenum. Retroflexion view performed. The patient's vital signs remained stable throughout the procedure. FINDINGS: There was a small to medium hiatal hernia at GE junction at 38 cm from the gums. The esophagus otherwise appeared to be normal. There is mild gastritis noted in the stomach. The stomach otherwise appeared to be normal. The duodenum appeared to be normal. Retroflexion view performed in the stomach showed no other pathology other than noted above. The patient tolerated the procedure well. No complications during the procedure. IMPRESSION: 1. Hiatal hernia. 2. Gastritis. 3. Otherwise, normal EGD. RECOMMENDATIONS: 1. Continue current medication and diet. 2. Colonoscopy, follow further recommendation based on colonoscopy results. JOB# [id number] CAB/NTS
--- NOTE | 2018-11-18 13:17 | Anesthesia Day of Surgery ---
Anesthesia Day of Surgery - Day of Surgery Patient Examined: Yes Patient H&P Reviewed: Yes Patient is NPO: Yes
--- NOTE | 2018-11-18 13:20 | Operative Report ---
PROCEDURE: Colonoscopy with hot snare polypectomy. INDICATION: 1. Anemia. 2. Gastrointestinal bleed. MEDICATION: Propofol per MAT ROLLER. COMPLICATIONS: None. DESCRIPTION OF PROCEDURE: The patient was brought to the procedure suite. The patient had the procedure discussed with him at length. All risks, complications, and benefits discussed after which the patient signed for the procedure to be performed. The patient was placed in left lateral decubitus position. Rectal exam performed prior to insertion of the scope. After adequate sedation medication as above, scope was inserted into the rectum and brought to the level of the cecum. The ileocecal valve and appendiceal orifice, cecal strap were visualized. Colonoscope was then removed and mucosa of colon completely and adequately visualized. Prep quality was fair. The patient's vital signs remained stable throughout the procedure. After adequate sedation medication as above, scope was inserted into the rectum and brought to the cecum. Ileocecal valve and appendiceal orifice, cecal strap were adequately visualized. Colonoscope was then removed and mucosa of colon completely and adequately visualized. Prep quality was fair. The patient's vital signs remained stable throughout the procedure. FINDINGS: There were two 6-10 mm sessile small polyp noted in the transverse colon. Hot snare polypectomy technique was applied with removal and retrieval of this polyp and sent to pathology. No other polyps or lesions were noted. Small sigmoid diverticula noted. Retroflexion view performed in the rectum showed small internal hemorrhoids. The patient tolerated the procedure well. No complications during the procedure. IMPRESSION: 1. Polyp x 2, status post hot snare polypectomy. 2. Internal hemorrhoids. 3. Diverticulosis. RECOMMENDATIONS: 1. Follow up biopsy results. 2. Avoid NSAIDs and aspirin and Coumadin for 3 days. 3. Advance diet. 4. If H and H stable in a.m., okay to discharge from GI standpoint. JOB# [id number] CAB/NTS
--- NOTE | 2018-11-18 13:24 | Anesthesia Consultation ---
Anesthesia Consult and Med Hx Date of service: 11/18/18 - Airway Anesthetic Teeth Evaluation: Poor (missing and broken teeth), Chipped ROM Head & Neck: Adequate Mental/Hyoid Distance: Adequate Mallampati Class: Class III Intubation Access Assessment: Possibly Difficult - Pre-Operative Health Status ASA Pre-Surgery Classification: ASA3, Emergency Proposed Anesthetic Plan: MAC - Pulmonary Hx Smoking: Yes Hx Asthma: No COPD: Yes Hx Pneumonia: No - Cardiovascular System Hx Hypertension: Yes Hx Peripheral Vascular Disease: Yes (+PAD; left foot toes amputated) - Central Nervous System Hx Psychiatric Problems: No - Endocrine Hx End Stage Renal Disease: No Hx Non-Insulin Dependent Diabetes: Yes - Hematic Hx Anemia: Yes (NOTED POSTOPERATIVELY 2012) - Other Systems Hx Alcohol Use: Yes (VERY LITTLE) Hx Substance Use: No Hx Cancer: No - Additional Comments Anesthesia Medical History Comments: Pt arrived with a wound vac for left groin wound not healing; left eye not closing well; facial puffiness, left hand and arm swollen, bruising throughout body.
--- NOTE | 2018-11-18 13:25 | Post Anesthesia Evaluation ---
- Post Anesthesia Evaluation Patient Participated: Yes (sleeping) Airway Patent: Yes Stable Respiratory Function: Yes Nausea/Vomiting: No Temp > 96.8F: Yes Pain Manageable: Yes Adequeate Hydration: Yes Anesthesia Complications: No Block Receding Appropriately: Not Applicable Patient on Ventilator: No
[2018-11-18] MEDS: HumaLOG SUB-Q SCH ×2 (17:57→22:43)
[2018-11-18] MEDS: PROTONIX IV SCH (22:42)
[2018-11-18] MEDS: SODIUM CHLORIDE FLUSH SYRINGE 10 ML IV SCH (22:42)
[2018-11-19] MEDS ORDERED: NACL 0.9% 500 ML 500 ML IV ONE (03:18)
[2018-11-19] MEDS: NORCO 5/325 PO PRN ×3 (04:58→19:51)
--- NOTE | 2018-11-19 08:01 | Progress Note ---
Assessment and Plan Assessment and plan: 57-year-old man with a history of hypertension, diabetes, CHF, COPD, hyperlipidemia, A. fib on coumadin comes to the emergency room with complaints of diarrhea that started yesterday. He said multiple episodes of diarrhea yesterday, continue until today. He also complained of dark stool, he thinks that it started yesterday. He feels weak. Patient was just discharged from the hospital on the 12 of this month Wound vac in place, left lower ext PT eval GI bleed, melena Blood loss anemia Coumadin toxicity Mild gastritis Hypertension diabetes mellitus Lower extremity wound Secondary coagulopathy, INR CHF, Stable COPD Hyperlipidemia, A. fib PVD Plan Continue supportive care. COLONOSCOPY- 6-10 mm polyp x 2 transverse (hot snare) Restart anticoagulation x 3 day s/p PRBC and FFP Follow hemoglobin, INR, Continue protonix Internal Hemorrhoids GI consulted to see the patient and input noted Check fingersticks, initiate insulin sliding-scale hold antihypertensives, blood pressure will not tolerate Continue appropriate outpatient medications Dvt to prophylaxis Patient likely will benefit from SNF WOUND VAC SINCE LAST ADMISSION Will anticipate discharge in AM, provide adequate education about meds. History Interval history: Patient seen and examined today, reports generalized weakness and edema. Hospitalist Physical - Physical exam Narrative exam: General Apperance: The patient lying in bed, breathing comfortable HEENT: Normocephalic, atraumatic. Pupils equally round and reactive to light, EOMI, no sclericterus or JVD or thyromegaly or nodule. , no carotid bruit, mucous membranes moist, no exudate or erythema Heart: S1-S2, regular is rhythm Lungs: Clear to auscultation bilaterally, breathing comfortable Abdomen: Positive bowel sounds, soft, nontender, nondistended, no organomegaly Extremities: Left lower extremity wound, Wound vac in place. No cyanosis clubbing, transmetatarsal amputation. trace generalized edema Skin: multiple lesions on the skin. Neuro: cranial nerves 2-12 intact, speech is fluent, motor/sensory intact - Constitutional Vitals: Temp Pulse Resp BP Pulse Ox 97.6 F 68 20 116/61 95 11/19/18 06:59 11/19/18 06:59 11/19/18 06:59 11/19/18 06:59 11/19/18 05:40 General appearance: Present: no acute distress Results - Labs CBC & Chem 7: 11/19/18 09:36 11/19/18 09:36 Labs: Laboratory Last Values WBC 11.2 K/mm3 (4.5-11.0) H 11/18/18 07:31 RBC 2.41 M/mm3 (3.65-5.03) L 11/18/18 07:31 Hgb 6.7 gm/dl (11.8-15.2) L 11/18/18 07:31 Hct 21.0 % (35.5-45.6) L 11/18/18 07:31 MCV 87 fl (84-94) 11/18/18 07:31 MCH 28 pg (28-32) 11/18/18 07:31 MCHC 32 % (32-34) 11/18/18 07:31 RDW 18.1 % (13.2-15.2) H 11/18/18 07:31 Plt Count 208 K/mm3 (140-440) 11/18/18 07:31 Lymph % (Auto) 5.2 % (13.4-35.0) L 11/17/18 04:56 [place] % (Auto) 6.2 % (0.0-7.3) 11/17/18 04:56 Eos % (Auto) 0.7 % (0.0-4.3) 11/17/18 04:56 Baso % (Auto) 0.1 % (0.0-1.8) 11/17/18 04:56 Lymph # 0.7 K/mm3 (1.2-5.4) L 11/17/18 04:56 [place] # 0.8 K/mm3 (0.0-0.8) 11/17/18 04:56 Eos # 0.1 K/mm3 (0.0-0.4) 11/17/18 04:56 Baso # 0.0 K/mm3 (0.0-0.1) 11/17/18 04:56 Add Manual Diff Complete 11/16/18 17:15 Total Counted 100 11/16/18 17:15 Seg Neutrophils % 87.8 % (40.0-70.0) H 11/17/18 04:56 Seg Neuts % (Manual) 93.0 % (40.0-70.0) H 11/16/18 17:15 Band Neutrophils % 0 % 11/16/18 17:15 Lymphocytes % (Manual) 3.0 % (13.4-35.0) L 11/16/18 17:15 Reactive Lymphs % (Man) 0 % 11/16/18 17:15 Monocytes % (Manual) 4.0 % (0.0-7.3) 11/16/18 17:15 Eosinophils % (Manual) 0 % (0.0-4.3) 11/16/18 17:15 Basophils % (Manual) 0 % (0.0-1.8) 11/16/18 17:15 Metamyelocytes % 0 % 11/16/18 17:15 Myelocytes % 0 % 11/16/18 17:15 Promyelocytes % 0 % 11/16/18 17:15 Blast Cells % 0 % 11/16/18 17:15 Nucleated RBC % Not Reportable 11/16/18 17:15 Seg Neutrophils # 12.0 K/mm3 (1.8-7.7) H 11/17/18 04:56 Seg Neutrophils # Man 16.6 K/mm3 (1.8-7.7) H 11/16/18 17:15 Band Neutrophils # 0.0 K/mm3 11/16/18 17:15 Lymphocytes # (Manual) 0.5 K/mm3 (1.2-5.4) L 11/16/18 17:15 Abs React Lymphs (Man) 0.0 K/mm3 11/16/18 17:15 Monocytes # (Manual) 0.7 K/mm3 (0.0-0.8) 11/16/18 17:15 Eosinophils # (Manual) 0.0 K/mm3 (0.0-0.4) 11/16/18 17:15 Basophils # (Manual) 0.0 K/mm3 (0.0-0.1) 11/16/18 17:15 Metamyelocytes # 0.0 K/mm3 11/16/18 17:15 Myelocytes # 0.0 K/mm3 11/16/18 17:15 Promyelocytes # 0.0 K/mm3 11/16/18 17:15 Blast Cells # 0.0 K/mm3 11/16/18 17:15 WBC Morphology Not Reportable 11/16/18 17:15 Hypersegmented Neuts Not Reportable 11/16/18 17:15 Hyposegmented Neuts Not Reportable 11/16/18 17:15 Hypogranular Neuts Not Reportable 11/16/18 17:15 Smudge Cells Not Reportable 11/16/18 17:15 Toxic Granulation Not Reportable 11/16/18 17:15 Toxic Vacuolation Not Reportable 11/16/18 17:15 Dohle Bodies Not Reportable 11/16/18 17:15 Pelger-Huet Anomaly Not Reportable 11/16/18 17:15 Amanda Rods Not Reportable 11/16/18 17:15 Platelet Estimate Appears normal 11/16/18 17:15 Clumped Platelets Not Reportable 11/16/18 17:15 Plt Clumps, EDTA Not Reportable 11/16/18 17:15 Large Platelets Not Reportable 11/16/18 17:15 Giant Platelets Not Reportable 11/16/18 17:15 Platelet Satelliting Not Reportable 11/16/18 17:15 Plt Morphology Comment Not Reportable 11/16/18 17:15 RBC Morphology Not Reportable 11/16/18 17:15 Dimorphic RBCs Not Reportable 11/16/18 17:15 Polychromasia Not Reportable 11/16/18 17:15 Hypochromasia Not Reportable 11/16/18 17:15 Poikilocytosis Not Reportable 11/16/18 17:15 Anisocytosis 1+ 11/16/18 17:15 Microcytosis Not Reportable 11/16/18 17:15 Macrocytosis Not Reportable 11/16/18 17:15 Spherocytes Not Reportable 11/16/18 17:15 Pappenheimer Bodies Not Reportable 11/16/18 17:15 Sickle Cells Not Reportable 11/16/18 17:15 Target Cells Not Reportable 11/16/18 17:15 Tear Drop Cells Not Reportable 11/16/18 17:15 Ovalocytes Few 11/16/18 17:15 Helmet Cells Not Reportable 11/16/18 17:15 [place] Bodies Not Reportable 11/16/18 17:15 [place] Rings Not Reportable 11/16/18 17:15 [place] Cells Not Reportable 11/16/18 17:15 Bite Cells Not Reportable 11/16/18 17:15 Crenated Cell Not Reportable 11/16/18 17:15 Elliptocytes Not Reportable 11/16/18 17:15 Acanthocytes (Spur) Not Reportable 11/16/18 17:15 Rouleaux Not Reportable 11/16/18 17:15 Hemoglobin C Crystals Not Reportable 11/16/18 17:15 Schistocytes Not Reportable 11/16/18 17:15 Malaria parasites Not Reportable 11/16/18 17:15 Elias Bodies Not Reportable 11/16/18 17:15 Hem Pathologist Commnt No 11/16/18 17:15 PT 20.7 Sec. (12.2-14.9) H 11/18/18 09:42 INR 1.66 (0.87-1.13) H 11/18/18 09:42 APTT 43.5 Sec. (24.2-36.6) H 11/16/18 17:15 Sodium 138 mmol/L (137-145) 11/18/18 07:31 Potassium 4.0 mmol/L (3.6-5.0) 11/18/18 07:31 Chloride 103.4 mmol/L (98-107) 11/18/18 07:31 Carbon Dioxide 24 mmol/L (22-30) 11/18/18 07:31 Anion Gap 15 mmol/L 11/18/18 07:31 BUN 16 mg/dL (9-20) 11/18/18 07:31 Creatinine 0.7 mg/dL (0.8-1.5) L 11/18/18 07:31 Estimated GFR > 60 ml/min 11/18/18 07:31 BUN/Creatinine Ratio 23 % 11/18/18 07:31 Glucose 221 mg/dL (75-100) H 11/18/18 07:31 POC Glucose 155 (70-105) H 11/18/18 22:20 Calcium 8.0 mg/dL (8.4-10.2) L 11/18/18 07:31 Total Bilirubin 0.50 mg/dL (0.1-1.2) 11/16/18 17:15 AST 23 units/L (5-40) 11/16/18 17:15 ALT 44 units/L (7-56) 11/16/18 17:15 Alkaline Phosphatase 77 units/L (35-129) 11/16/18 17:15 Total Protein 4.7 g/dL (6.3-8.2) L 11/16/18 17:15 Albumin 2.7 g/dL (3.9-5) L 11/16/18 17:15 Albumin/Globulin Ratio 1.4 % 11/16/18 17:15 Blood Type A POSITIVE 11/16/18 17:15 Antibody Screen Negative 11/16/18 17:15 Crossmatch See Detail 11/16/18 17:15 Active Medications - Current Medications Current Medications: Generic Name Dose Route Start Last Admin Trade Name Freq PRN Reason Stop Dose Admin Acetaminophen 650 mg 11/16/18 23:29 11/17/18 15:31 Tylenol PO 650 mg Q4H PRN Administration Pain MILD(1-3)/Fever >100.5/MORROW Acetaminophen/Hydrocodone Bitart 1 each 11/17/18 21:37 11/19/18 04:58 [place] 5/325 PO 1 each Q6H PRN Administration Pain, Moderate (4-6) Dextrose 50 ml 11/16/18 23:31 D50w (25gm) Syringe IV PRN PRN Hypoglycemia Ephedrine Sulfate 5 mg 11/18/18 13:46 11/18/18 13:45 Ephedrine Sulfate IV 5 mg Q2M PRN Administration Blood Pressure Insulin Human Lispro 0 unit 11/18/18 17:45 11/18/18 22:43 Humalog SUB-Q 2 unit ACHS RAJAT Administration Protocol Ondansetron HCl 4 mg 11/16/18 23:29 Zofran IV Q8H PRN Nausea And Vomiting Pantoprazole Sodium 40 mg 11/16/18 23:45 11/18/18 22:42 Protonix IV 40 mg BID RAJAT Administration Sodium Chloride 10 ml 11/17/18 10:00 11/18/18 22:42 Sodium Chloride Flush Syringe 10 Ml IV 10 ml BID RAJAT Administration Sodium Chloride 10 ml 11/16/18 23:29 Sodium Chloride Flush Syringe 10 Ml IV PRN PRN LINE FLUSH
[2018-11-19] MEDS: PROTONIX IV SCH (09:46)
[2018-11-19] MEDS: SODIUM CHLORIDE FLUSH SYRINGE 10 ML IV SCH ×2 (09:47→22:45)
[2018-11-19] MEDS: HumaLOG SUB-Q SCH ×4 (09:47→22:44)
[2018-11-19 10:47] LABS: Hematocrit 25.5 % (35.5-45.6); Hemoglobin 8.1 gm/dl (11.8-15.2); Mean Corpuscular HGB Conc 32 % (32-34); Mean Corpuscular Volume 87 fl (84-94); Platelet Count 229 K/mm3 (140-440); Red Blood Count 2.92 M/mm3 (3.65-5.03); Red Cell Distribution Width 18.4 % (13.2-15.2)
[2018-11-19 10:55] LABS: INR 1.27 (0.87-1.13)
[2018-11-19 11:09] LABS: BUN/Creatinine Ratio 16; Blood Urea Nitrogen 11 mg/dL (9-20); Calcium 7.9 mg/dL (8.4-10.2); Hemolysis Index 2
--- NOTE | 2018-11-19 14:19 | Gastroenterology Progress Note ---
Assessment and Plan GI: pt presented w/ anemia w/ melena, coagulopathy - EGD/colon benign - h/h stable - ok to restart anti-coagulation - consider pill cam outpt if signs bleeding - ok to d/c from GI standpoint - will sign off, call if needed Subjective Date of service: 11/19/18 Principal diagnosis: GI bleed Interval history: - no signs bleeding or other GI complaints overnight Objective - Constitutional Vitals: Temp Pulse Resp BP Pulse Ox 97.6 F 72 20 116/61 95 11/19/18 06:59 11/19/18 10:00 11/19/18 06:59 11/19/18 06:59 11/19/18 05:40 General appearance: no acute distress - EENT Eyes: PERRL - Respiratory Respiratory: bilateral: CTA - Cardiovascular Rhythm: regular Heart Sounds: Present: S1 & S2 - Gastrointestinal General gastrointestinal: Present: soft, non-tender - Labs CBC & Chem 7: 11/19/18 09:36 11/19/18 09:36 Labs: Laboratory Results - last 24 hr 11/16/18 11/18/18 11/18/18 17:15 16:21 22:20 WBC RBC Hgb Hct MCV MCH MCHC RDW Plt Count PT INR Sodium Potassium Chloride Carbon Dioxide Anion Gap BUN Creatinine Estimated GFR BUN/Creatinine Ratio Glucose POC Glucose 253 H 155 H Calcium Blood Type A POSITIVE Antibody Screen Negative Crossmatch See Detail 11/19/18 11/19/18 11/19/18 08:13 09:36 09:36 WBC 9.9 RBC 2.92 L Hgb 8.1 L Hct 25.5 L MCV 87 MCH 28 MCHC 32 RDW 18.4 H Plt Count 229 PT 16.7 H INR 1.27 H Sodium Potassium Chloride Carbon Dioxide Anion Gap BUN Creatinine Estimated GFR BUN/Creatinine Ratio Glucose POC Glucose 122 H Calcium Blood Type Antibody Screen Crossmatch 11/19/18 11/19/18 09:36 11:48 WBC RBC Hgb Hct MCV MCH MCHC RDW Plt Count PT INR Sodium 137 Potassium 3.7 Chloride 102.1 Carbon Dioxide 23 Anion Gap 16 BUN 11 Creatinine 0.7 L Estimated GFR > 60 BUN/Creatinine Ratio 16 Glucose 242 H POC Glucose 262 H Calcium 7.9 L Blood Type Antibody Screen Crossmatch
[2018-11-19] MEDS: PROTONIX PO SCH (22:45)
[2018-11-20] MEDS: NORCO 5/325 PO PRN ×3 (00:57→22:43)
[2018-11-20] MEDS: HumaLOG SUB-Q SCH ×4 (09:07→22:36)
[2018-11-20 10:32] LABS: Hematocrit 24.3 % (35.5-45.6); Hemoglobin 7.8 gm/dl (11.8-15.2)
[2018-11-20] MEDS: PROTONIX PO SCH (10:52)
[2018-11-20] MEDS: SODIUM CHLORIDE FLUSH SYRINGE 10 ML IV SCH ×3 (10:53→22:02)
[2018-11-20] MEDS ORDERED: PERCOCET 5/325 PO PRN (11:22)
[2018-11-20] MEDS ORDERED: PROVENTIL IH PRN (11:27)
[2018-11-20] MEDS ORDERED: PROAIR IH PRN (11:27)
[2018-11-20] MEDS ORDERED: LASIX IV ONE (12:30)
[2018-11-20] MEDS: DILAUDID IV PRN ×2 (12:54→16:32)
--- NOTE | 2018-11-20 13:03 | Consultation ---
History of Present Illness Consult date: 11/20/18 Chief complaint: wounds - History of present illness History of present illness: 57 yo M with hx of severe PAD and LE wounds, hx of L BKA presented to hospital with nausea, vomiting, abdominal pain. The patient is a very poor historian. He c/o pain "everywhere". He states he has pain in both legs that feels like pressure. He states that nothing makes it better. He states that he had to drink a gallon of liquid and underwent testing. He feels the same as when he was admitted. The patient was seen by surgery and wound care on his last admission this month. At that time he underwent debridement of R foot and L thigh wounds. The L thigh wound cultures showed MRSA and Actinobacter for which he was started on vancomycin by ID and subsequently discharged on linezolid PO. He also had a wound vac placed to the left thigh and home health care set up. He states the wound vac came off at home and it is unclear if home health care came. The patient lives in a home with his landlord [facility] . He denies f/c. He has not followed up as outpatient in wound care clinic. He does not know if he finished the full course of PO linezolid. Past History Past Medical History: atrial fib, PVD, other (L thigh and RLE wounds) Past Surgical History: Other (lower extremity revascularization procedure, L BKA) Social history: no significant social history Family history: no significant family history Medications and Allergies Allergies Allergy/AdvReac Type Severity Reaction Status Date / Time ketorolac tromethamine Allergy Vomiting Verified 01/31/17 05:38 [From Toradol] tramadol Allergy Vomiting Verified 01/31/17 05:38 Home Medications Medication Instructions Recorded Confirmed Last Taken Type ALPRAZolam [Xanax TAB] 0.5 mg PO TID PRN #10 tablet 11/17/17 11/17/18 Unknown Rx AtorvaSTATin [Lipitor] 40 mg PO QHS #30 11/17/17 11/17/18 11/14/17 Rx Gabapentin [Neurontin] 800 mg PO TID 08/02/18 11/17/18 Unknown History metFORMIN [Glucophage] 500 mg PO BID 11/08/18 11/17/18 Unknown History ALBUTEROL Inhaler(NF) [VENTOLIN 2 puff IH Q4H PRN #1 inha 11/10/18 11/17/18 Unknown Rx Inhaler(NF)] ALBUTEROL NEB's [Proventil 0.083% 2.5 mg IH TID PRN #120 neb 11/10/18 11/17/18 Unknown Rx NEBS] Aspirin EC [Aspirin Enteric Coated 81 mg PO QDAY #30 tablet 11/10/18 11/17/18 Unknown Rx TAB] Clopidogrel [Plavix] 75 mg PO QDAY #30 tablet 11/10/18 11/17/18 Unknown Rx Digoxin [Lanoxin] 0.25 mg PO DAILY@1700 #30 tablet 11/10/18 11/17/18 Unknown Rx Diltiazem HCl [Diltiazem 24Hr Cd] 240 mg PO DAILY #30 cap.er.24h 11/10/18 11/17/18 Unknown Rx Fluticasone/Salmeterol [Advair 1 each IH BID #1 blst.w.dev 11/10/18 11/17/18 Unknown Rx 250-50 Diskus] Furosemide [Lasix TAB] 40 mg PO QDAY #30 tablet 11/10/18 11/17/18 Unknown Rx HYDROcodone/APAP 10-325 [[place] 1 each PO Q6H PRN #30 tablet 11/10/18 11/17/18 Unknown Rx 10-325 mg TAB] Pantoprazole [Protonix] 40 mg PO QDAY #30 tablet 11/10/18 11/17/18 Unknown Rx Tiotropium [place] [Spiriva] 18 mcg IH DAILY #30 cap.w.dev 11/10/18 11/17/18 Unknown Rx Warfarin [Coumadin] 7.5 mg PO DAILY@1700 #30 tablet 11/10/18 11/17/18 Unknown Rx predniSONE [Deltasone] 10 mg PO .TAPER #21 tab 11/10/18 11/17/18 Unknown Rx Active Meds: Active Medications Acetaminophen (Tylenol) 650 mg PO Q4H PRN PRN Reason: Pain MILD(1-3)/Fever >100.5/MORROW Last Admin: 11/17/18 15:31 Dose: 650 mg Documented by: Acetaminophen/Hydrocodone Bitart ([place] 5/325) 2 each PO Q6H PRN PRN Reason: Pain, Moderate (4-6) Albuterol (Proventil) 2.5 mg IH Q4H PRN PRN Reason: Wheezing Alprazolam (Xanax) 0.5 mg PO TID PRN PRN Reason: Anxiety Arformoterol Tartrate (Brovana Nebu) 15 mcg IH Q12HRT [facility] Aspirin (Halfprin Ec) 81 mg PO QDAY [facility] Atorvastatin Calcium (Lipitor) 40 mg PO QHS [facility] Budesonide (Pulmicort) 0.5 mg IH Q12HRT [facility] Clopidogrel Bisulfate (Plavix) 75 mg PO QDAY [facility] Dextrose (D50w (25gm) Syringe) 50 ml IV PRN PRN PRN Reason: Hypoglycemia Digoxin (Lanoxin) 0.25 mg PO DAILY@1700 [facility] Diltiazem HCl (Cardizem Cd) 120 mg PO QDAY [facility] Ephedrine Sulfate (Ephedrine Sulfate) 5 mg IV Q2M PRN PRN Reason: Blood Pressure Stop: 11/20/18 13:45 Last Admin: 11/18/18 13:45 Dose: 5 mg Documented by: Furosemide (Lasix) 40 mg PO QDAY [facility] Gabapentin (Neurontin) 800 mg PO TID [facility] Hydromorphone HCl (Dilaudid) 0.5 mg IV Q3H PRN PRN Reason: Pain , Severe (7-10) Last Admin: 11/20/18 12:54 Dose: 0.5 mg Documented by: Insulin Human Lispro (Humalog) 0 unit SUB-Q ACHS [facility]; Protocol Last Admin: 11/20/18 09:07 Dose: Not Given Documented by: Ondansetron HCl (Zofran) 4 mg IV Q8H PRN PRN Reason: Nausea And Vomiting Pantoprazole Sodium (Protonix) 40 mg PO QDAY [facility] Sodium Chloride (Sodium Chloride Flush Syringe 10 Ml) 10 ml IV BID [facility] Last Admin: 11/20/18 10:55 Dose: 10 ml Documented by: Sodium Chloride (Sodium Chloride Flush Syringe 10 Ml) 10 ml IV PRN PRN PRN Reason: LINE FLUSH Tiotropium [place] (Spiriva) 1 puff IH Q24HRT [facility] Warfarin Sodium (Coumadin) 5 mg PO DAILY@1700 [facility] Review of Systems All systems: negative (10 pt ROS performed and negative except for that listed in HPI) Exam Vital Signs Temp Pulse Resp BP Pulse Ox 97.4 F L 73 21 92/41 100 11/16/18 17:27 11/16/18 17:27 11/16/18 17:27 11/16/18 17:27 11/16/18 17:27 Narrative exam: Gen: Awake and alert. NAD CV: s1, s2+ resp; even and unlabored Ext: L thigh and RLE wound dressings c/d/i. Mild pain with palpation of both legs and thighs. Results - Labs 11/20/18 09:21 11/19/18 09:36 Abnormal lab results 11/19/18 11/19/18 11/20/18 Range/Units 16:39 22:06 09:11 Hgb (11.8-15.2) gm/dl Hct (35.5-45.6) % POC Glucose 118 H 239 H 134 H (70-105) 11/20/18 11/20/18 Range/Units 09:21 12:17 Hgb 7.8 L (11.8-15.2) gm/dl Hct 24.3 L (35.5-45.6) % POC Glucose 212 H (70-105) Assessment and Plan 57 yo M with 1. L thigh wound and R foot wounds 2. MRSA of L thigh wound 3. poorly controlled DM 4. severe PAD Plan; 1. start IV abx 2. patient contact precautions 3. Will look at updated photos from rechecker today. Spoke with rechecker who feels wounds may need some debridement. 4. vascular on board - plan for revascularization of RLE as outpatient 5. strict glucose control 6. prn pain control The patient is an extremely poor historian and is not capable of caring for his wounds on his own and not reliable enough to reach out to home health care or wound care clinic to maintain outpatient care. He may not have even finished full course of linezolid PO for infected left thigh wound. I recommend placement in [facility] facility. I discussed this with the patient and he understands. If the patient cannot maintain outpatient visits, aggressive wound care there is a very low likelihood that the wounds on either extremity are going to heal. Thank you, please call with questions.
--- NOTE | 2018-11-20 14:47 | Progress Note ---
Assessment and Plan Assessment and plan: 57-year-old man with a history of hypertension, diabetes, CHF, COPD, hyperlipidemia, A. fib, on coumadin, severe peripheral arterial disease, comes to the emergency room with complaints of diarrhea that started yesterday. He said multiple episodes of diarrhea yesterday, continue until today. He also com plained of dark stool, he thinks that it started yesterday. He feels weak. Patient was just discharged from the hospital on the 12 of this month PMH; hypertension, diabetes, history of left leg DVT, arthritis, nephrolithiasis, COPD due to interstitial lung disease, severe pulmonary hypertension, A. fib, tobacco dependence,, hyperlipidemia, peripheral arterial disease status post bypass and stents in his legs, partial left foot amputation * In 2012 the patient had a left femoral popliteal reverse saphenous vein bypass graft which thrombosis, endovascular rescue was attempted which failed, and patient had open thrombectomy with endovascular reconstruction of his superficial femoral artery and ligation of his venous bypass with common femoral artery bovine patch angioplasty. He subsequently had tibial interventions that were endovascularly performed with placement of a stent in the posterior tibial artery. During this time, he had incision and drainage of the left thigh seroma and left TMA. * In October 2018 He had angioplasty of the left common iliac artery and also of the left external iliac artery with atherectomy and angioplasty of the left profunda femoral artery Left thigh region that became discolored, turned black, and then created a large area of granulation tissue. In addition, he reports that he has numbness, and pins and needles pain with electrical pain that radiates from his back down to his feet and involves both of his feet. He reports that this started 2 weeks ago. His feet are also tender to touch which sounds like his neuropathy, according to the patient. He also has ulceration over the dorsum of his right foot which occured 1 month ago. * The last admission At that time he underwent debridement of R foot and L thigh wounds. The L thigh wound cultures showed MRSA and Actinobacter for which he was started on vancomycin by ID and subsequently discharged on linezolid PO. He also had a wound vac placed to the left thigh and home health care set up. Patient unfortunately is a poor historian has no good understanding his medical condition and unfortunately did not follow up all was a compliant with his treatment. He unfortunately continues to drink gallons of liquid a little better despite his congestive heart failure. -During this hospital stay the patient underwent COLONOSCOPY- 6-10 mm polyp x 2 transverse (hot snare), EGD was benign -INR was over 10 and subsequently improved. There is no clear documentation of the patient received FFP. It was followed thawed -INR now corrected and GI recommends that it can be re-iniatied. My best finding is that the patient is on warfarin for the noted Atrial fibrillation he developed during the last admission. He also is on asa and plavix for severe PAD. Prior imaging study arterial duplex of lower extremity; shows significant bilateral lower extremity disease involving all segments, CT A/P with run offs; Bilateral peripheral arterial disease GI bleed, melena SIRS, DOUBT SEPSIS Reactive Leukocytosis secondary to severe anemia Acute Blood loss anemia Coumadin toxicity No evidence of overdose. Mild gastritis ILD on revatio Hypertension Diabetes mellitus Lower extremity wound Secondary coagulopathy, INR Paroxysmal Atrial fibrillation Morbid Obesity CHF, Stable Tobacco abuse COPD Hyperlipidemia, A. fib PVD Plan Continue supportive care. ID and surgery consulted patient to undergo debridement COLONOSCOPY- 6-10 mm polyp x 2 transverse (hot snare) May require Abx per ID Restart anticoagulation in one day if no further surgical need Interval Lasix s/p PRBC and FFP Follow hemoglobin, INR, Continue protonix Internal Hemorrhoids HOLD DIGOXIN AND CARDIZEM DUE TO LOW BP Check fingersticks, initiate insulin sliding-scale hold antihypertensives, blood pressure will not tolerate Continue appropriate outpatient medications Echocardiogram from 08/02/2018 revealed EF of 40-45% with global left ventricular systolic function mildly decreased. Patient had evidence of severe pulmonary hypertension. Dvt to prophylaxis Patient likely will benefit from SNF WOUND VAC SINCE LAST ADMISSION Patient has poor prognosis and needs SNF or risk loosing more limbs. Lives with his landlords , not sure he completed his linozilid from last admission History Interval history: Patient seen and examined today, reports generalized weakness and edema. He continues to complain of generalized body pain especially in the lower extremities. Hospitalist Physical - Physical exam Narrative exam: General Apperance: The patient lying in bed, breathing comfortable HEENT: Normocephalic, atraumatic. Pupils equally round and reactive to light, EOMI, no sclericterus or JVD or thyromegaly or nodule. , no carotid bruit, mucous membranes moist, no exudate or erythema Heart: S1-S2, regular is rhythm Lungs: Clear to auscultation bilaterally, breathing comfortable Abdomen: Positive bowel sounds, soft, nontender, nondistended, no organomegaly Extremities: Left lower extremity wound. No cyanosis clubbing,left transmeta tarsal amputation. trace generalized edema Skin: multiple lesions on the skin. thigh wound on the left, stitches still in place Neuro: cranial nerves 2-12 intact, speech is fluent, motor/sensory intact - Constitutional Vitals: Temp Pulse Resp BP Pulse Ox 98.0 F 89 20 113/75 96 11/20/18 05:19 11/20/18 05:19 11/20/18 05:19 11/20/18 05:19 11/20/18 10:00 General appearance: Present: no acute distress Results - Labs CBC & Chem 7: 11/20/18 09:21 11/19/18 09:36 Labs: Laboratory Last Values WBC 9.9 K/mm3 (4.5-11.0) 11/19/18 09:36 RBC 2.92 M/mm3 (3.65-5.03) L 11/19/18 09:36 Hgb 7.8 gm/dl (11.8-15.2) L 11/20/18 09:21 Hct 24.3 % (35.5-45.6) L 11/20/18 09:21 MCV 87 fl (84-94) 11/19/18 09:36 MCH 28 pg (28-32) 11/19/18 09:36 MCHC 32 % (32-34) 11/19/18 09:36 RDW 18.4 % (13.2-15.2) H 11/19/18 09:36 Plt Count 229 K/mm3 (140-440) 11/19/18 09:36 Lymph % (Auto) 5.2 % (13.4-35.0) L 11/17/18 04:56 [place] % (Auto) 6.2 % (0.0-7.3) 11/17/18 04:56 Eos % (Auto) 0.7 % (0.0-4.3) 11/17/18 04:56 Baso % (Auto) 0.1 % (0.0-1.8) 11/17/18 04:56 Lymph # 0.7 K/mm3 (1.2-5.4) L 11/17/18 04:56 [place] # 0.8 K/mm3 (0.0-0.8) 11/17/18 04:56 Eos # 0.1 K/mm3 (0.0-0.4) 11/17/18 04:56 Baso # 0.0 K/mm3 (0.0-0.1) 11/17/18 04:56 Add Manual Diff Complete 11/16/18 17:15 Total Counted 100 11/16/18 17:15 Seg Neutrophils % 87.8 % (40.0-70.0) H 11/17/18 04:56 Seg Neuts % (Manual) 93.0 % (40.0-70.0) H 11/16/18 17:15 Band Neutrophils % 0 % 11/16/18 17:15 Lymphocytes % (Manual) 3.0 % (13.4-35.0) L 11/16/18 17:15 Reactive Lymphs % (Man) 0 % 11/16/18 17:15 Monocytes % (Manual) 4.0 % (0.0-7.3) 11/16/18 17:15 Eosinophils % (Manual) 0 % (0.0-4.3) 11/16/18 17:15 Basophils % (Manual) 0 % (0.0-1.8) 11/16/18 17:15 Metamyelocytes % 0 % 11/16/18 17:15 Myelocytes % 0 % 11/16/18 17:15 Promyelocytes % 0 % 11/16/18 17:15 Blast Cells % 0 % 11/16/18 17:15 Nucleated RBC % Not Reportable 11/16/18 17:15 Seg Neutrophils # 12.0 K/mm3 (1.8-7.7) H 11/17/18 04:56 Seg Neutrophils # Man 16.6 K/mm3 (1.8-7.7) H 11/16/18 17:15 Band Neutrophils # 0.0 K/mm3 11/16/18 17:15 Lymphocytes # (Manual) 0.5 K/mm3 (1.2-5.4) L 11/16/18 17:15 Abs React Lymphs (Man) 0.0 K/mm3 11/16/18 17:15 Monocytes # (Manual) 0.7 K/mm3 (0.0-0.8) 11/16/18 17:15 Eosinophils # (Manual) 0.0 K/mm3 (0.0-0.4) 11/16/18 17:15 Basophils # (Manual) 0.0 K/mm3 (0.0-0.1) 11/16/18 17:15 Metamyelocytes # 0.0 K/mm3 11/16/18 17:15 Myelocytes # 0.0 K/mm3 11/16/18 17:15 Promyelocytes # 0.0 K/mm3 11/16/18 17:15 Blast Cells # 0.0 K/mm3 11/16/18 17:15 WBC Morphology Not Reportable 11/16/18 17:15 Hypersegmented Neuts Not Reportable 11/16/18 17:15 Hyposegmented Neuts Not Reportable 11/16/18 17:15 Hypogranular Neuts Not Reportable 11/16/18 17:15 Smudge Cells Not Reportable 11/16/18 17:15 Toxic Granulation Not Reportable 11/16/18 17:15 Toxic Vacuolation Not Reportable 11/16/18 17:15 Dohle Bodies Not Reportable 11/16/18 17:15 Pelger-Huet Anomaly Not Reportable 11/16/18 17:15 Amanda Rods Not Reportable 11/16/18 17:15 Platelet Estimate Appears normal 11/16/18 17:15 Clumped Platelets Not Reportable 11/16/18 17:15 Plt Clumps, EDTA Not Reportable 11/16/18 17:15 Large Platelets Not Reportable 11/16/18 17:15 Giant Platelets Not Reportable 11/16/18 17:15 Platelet Satelliting Not Reportable 11/16/18 17:15 Plt Morphology Comment Not Reportable 11/16/18 17:15 RBC Morphology Not Reportable 11/16/18 17:15 Dimorphic RBCs Not Reportable 11/16/18 17:15 Polychromasia Not Reportable 11/16/18 17:15 Hypochromasia Not Reportable 11/16/18 17:15 Poikilocytosis Not Reportable 11/16/18 17:15 Anisocytosis 1+ 11/16/18 17:15 Microcytosis Not Reportable 11/16/18 17:15 Macrocytosis Not Reportable 11/16/18 17:15 Spherocytes Not Reportable 11/16/18 17:15 Pappenheimer Bodies Not Reportable 11/16/18 17:15 Sickle Cells Not Reportable 11/16/18 17:15 Target Cells Not Reportable 11/16/18 17:15 Tear Drop Cells Not Reportable 11/16/18 17:15 Ovalocytes Few 11/16/18 17:15 Helmet Cells Not Reportable 11/16/18 17:15 [place] Bodies Not Reportable 11/16/18 17:15 [place] Rings Not Reportable 11/16/18 17:15 Krissy Cells Not Reportable 11/16/18 17:15 Bite Cells Not Reportable 11/16/18 17:15 Crenated Cell Not Reportable 11/16/18 17:15 Elliptocytes Not Reportable 11/16/18 17:15 Acanthocytes (Spur) Not Reportable 11/16/18 17:15 Rouleaux Not Reportable 11/16/18 17:15 Hemoglobin C Crystals Not Reportable 11/16/18 17:15 Schistocytes Not Reportable 11/16/18 17:15 Malaria parasites Not Reportable 11/16/18 17:15 Elias Bodies Not Reportable 11/16/18 17:15 Hem Pathologist Commnt No 11/16/18 17:15 PT 16.7 Sec. (12.2-14.9) H 11/19/18 09:36 INR 1.27 (0.87-1.13) H 11/19/18 09:36 APTT 43.5 Sec. (24.2-36.6) H 11/16/18 17:15 Sodium 137 mmol/L (137-145) 11/19/18 09:36 Potassium 3.7 mmol/L (3.6-5.0) 11/19/18 09:36 Chloride 102.1 mmol/L (98-107) 11/19/18 09:36 Carbon Dioxide 23 mmol/L (22-30) 11/19/18 09:36 Anion Gap 16 mmol/L 11/19/18 09:36 BUN 11 mg/dL (9-20) 11/19/18 09:36 Creatinine 0.7 mg/dL (0.8-1.5) L 11/19/18 09:36 Estimated GFR > 60 ml/min 11/19/18 09:36 BUN/Creatinine Ratio 16 % 11/19/18 09:36 Glucose 242 mg/dL (75-100) H 11/19/18 09:36 POC Glucose 212 (70-105) H 11/20/18 12:17 Calcium 7.9 mg/dL (8.4-10.2) L 11/19/18 09:36 Total Bilirubin 0.50 mg/dL (0.1-1.2) 11/16/18 17:15 AST 23 units/L (5-40) 11/16/18 17:15 ALT 44 units/L (7-56) 11/16/18 17:15 Alkaline Phosphatase 77 units/L (35-129) 11/16/18 17:15 Total Protein 4.7 g/dL (6.3-8.2) L 11/16/18 17:15 Albumin 2.7 g/dL (3.9-5) L 11/16/18 17:15 Albumin/Globulin Ratio 1.4 % 11/16/18 17:15 Blood Type A POSITIVE 11/16/18 17:15 Antibody Screen Negative 11/16/18 17:15 Crossmatch See Detail 11/16/18 17:15 Active Medications - Current Medications Current Medications: Generic Name Dose Route Start Last Admin Trade Name Freq PRN Reason Stop Dose Admin Acetaminophen 650 mg 11/16/18 23:29 11/17/18 15:31 Tylenol PO 650 mg Q4H PRN Administration Pain MILD(1-3)/Fever >100.5/MORROW Acetaminophen/Hydrocodone Bitart 2 each 11/20/18 11:24 [place] 5/325 PO Q6H PRN Pain, Moderate (4-6) Albuterol 2.5 mg 11/20/18 11:27 Proventil IH Q4H PRN Wheezing Alprazolam 0.5 mg 11/20/18 11:27 Xanax PO TID PRN Anxiety Arformoterol Tartrate 15 mcg 11/20/18 20:00 Brovana Nebu IH Q12HRT [facility] Aspirin 81 mg 11/21/18 10:00 Halfprin Ec PO QDAY RAJAT Atorvastatin Calcium 40 mg 11/20/18 22:00 Lipitor PO QHS [facility] Budesonide 0.5 mg 11/20/18 20:00 Pulmicort IH Q12HRT [facility] Clopidogrel Bisulfate 75 mg 11/21/18 10:00 Plavix PO QDAY [facility] Dextrose 50 ml 11/16/18 23:31 D50w (25gm) Syringe IV PRN PRN Hypoglycemia Digoxin 0.25 mg 11/20/18 17:00 Lanoxin PO DAILY@1700 [facility] Diltiazem HCl 120 mg 11/20/18 14:00 Cardizem Cd PO QDAY [facility] Furosemide 40 mg 11/21/18 10:00 Lasix PO QDAY [facility] Gabapentin 800 mg 11/20/18 14:00 Neurontin PO TID [facility] Hydromorphone HCl 0.5 mg 11/20/18 11:33 11/20/18 12:54 Dilaudid IV 0.5 mg Q3H PRN Administration Pain , Severe (7-10) Insulin Human Lispro 0 unit 11/18/18 17:45 11/20/18 13:00 Humalog SUB-Q 3 unit [facility] Administration Protocol Ondansetron HCl 4 mg 11/16/18 23:29 Zofran IV Q8H PRN Nausea And Vomiting Pantoprazole Sodium 40 mg 11/21/18 10:00 Protonix PO QDAY [facility] Sodium Chloride 10 ml 11/17/18 10:00 11/20/18 10:55 Sodium Chloride Flush Syringe 10 Ml IV 10 ml BID [facility] Administration Sodium Chloride 10 ml 11/16/18 23:29 Sodium Chloride Flush Syringe 10 Ml IV PRN PRN LINE FLUSH Tiotropium Sisters 1 puff 11/21/18 09:00 Spiriva IH Q24HRT [facility] Warfarin Sodium 5 mg 11/20/18 17:00 Coumadin PO DAILY@1700 [facility]
[2018-11-20] MEDS: NEURONTIN PO SCH ×2 (15:29→20:01)
[2018-11-20] MEDS: CARDIZEM CD PO SCH (15:43)
--- NOTE | 2018-11-20 15:49 | Consultation ---
History of Present Illness - Reason for Consult Consult date: 11/20/18 infected wounds Requesting physician: KALLI ROTH - History of Present Illness 57 y/o male with diabetes, hypertension, history of left leg DVT, arthritis, COPD, pulmonary hypertension, active tobacco use, peripheral arterial disease, Afib on coumadin, status post left foot transmetatarsal amputation; admitted on 11/16/2018 due to bloody stools for 24 hour. patient is unable to provide history as he is not the best historian. He is known to our ID service during admission 11/03-11/10/2018 left thigh worsening wounds on his lower extremities. Arterial duplex and CTA with runoff showed extensive bilateral lower extremity peripheral vascular disease. Patient was seen by vascular surgery, on 11/06/2018, patient underwent left lower extremity angioplasty. On 11/07/2018, patient underwent bedside excisional debridement of left thigh wound, right foot wound and healed wound by general surgery. Cultures from debridement grew MRSA and Acinetobacter. Acinetobacter felt to be most likely a colonizer. He was treated with IV vancomycin while inpatient. Attempted to approve IV Dalvance not approved, patient was discharged on PO Linezolid 600 mg BID x 14 days- approved by case management. He also had a wound vac placed to the left thigh and home health care set up. He states the wound vac came off at home and it is unclear if home health care came. The patient lives in a home with his landlord and landlord's . He denies f/c. He has not followed up as outpatient in wound care clinic. He does not know if he finished the full course of PO linezolid. In the ED, temp 97.4, HR 73, R 21, O2 sat 100%, BP 92/41. WBC 17.9, Hg 5.8, Plat 239. Creat 0.9. Glucose 254. INR 10. Review of Systems: limited patient is not the best historian Past History Past Medical History: atrial fib, PVD, other (L thigh and RLE wounds) Past Surgical History: Other (lower extremity revascularization procedure, L BKA) Social history: no significant social history Family history: no significant family history Medications and Allergies Allergies Allergy/AdvReac Type Severity Reaction Status Date / Time ketorolac tromethamine Allergy Vomiting Verified 01/31/17 05:38 [From Toradol] tramadol Allergy Vomiting Verified 01/31/17 05:38 Home Medications Medication Instructions Recorded Confirmed Last Taken Type ALPRAZolam [Xanax TAB] 0.5 mg PO TID PRN #10 tablet 11/17/17 11/17/18 Unknown Rx AtorvaSTATin [Lipitor] 40 mg PO QHS #30 11/17/17 11/17/18 11/14/17 Rx Gabapentin [Neurontin] 800 mg PO TID 08/02/18 11/17/18 Unknown History metFORMIN [Glucophage] 500 mg PO BID 11/08/18 11/17/18 Unknown History ALBUTEROL Inhaler(NF) [VENTOLIN 2 puff IH Q4H PRN #1 inha 11/10/18 11/17/18 Unknown Rx Inhaler(NF)] ALBUTEROL NEB's [Proventil 0.083% 2.5 mg IH TID PRN #120 neb 11/10/18 11/17/18 Unknown Rx NEBS] Aspirin EC [Aspirin Enteric Coated 81 mg PO QDAY #30 tablet 11/10/18 11/17/18 Unknown Rx TAB] Clopidogrel [Plavix] 75 mg PO QDAY #30 tablet 11/10/18 11/17/18 Unknown Rx Digoxin [Lanoxin] 0.25 mg PO DAILY@1700 #30 tablet 11/10/18 11/17/18 Unknown Rx Diltiazem HCl [Diltiazem 24Hr Cd] 240 mg PO DAILY #30 cap.er.24h 11/10/18 11/17/18 Unknown Rx Fluticasone/Salmeterol [Advair 1 each IH BID #1 blst.w.dev 11/10/18 11/17/18 Unknown Rx 250-50 Diskus] Furosemide [Lasix TAB] 40 mg PO QDAY #30 tablet 11/10/18 11/17/18 Unknown Rx HYDROcodone/APAP 10-325 [[place] 1 each PO Q6H PRN #30 tablet 11/10/18 11/17/18 Unknown Rx 10-325 mg TAB] Pantoprazole [Protonix] 40 mg PO QDAY #30 tablet 11/10/18 11/17/18 Unknown Rx Tiotropium Trilla [Spiriva] 18 mcg IH DAILY #30 cap.w.dev 11/10/18 11/17/18 Unknown Rx Warfarin [Coumadin] 7.5 mg PO DAILY@1700 #30 tablet 11/10/18 11/17/18 Unknown Rx predniSONE [Deltasone] 10 mg PO .TAPER #21 tab 11/10/18 11/17/18 Unknown Rx Active Meds: Active Medications Acetaminophen (Tylenol) 650 mg PO Q4H PRN PRN Reason: Pain MILD(1-3)/Fever >100.5/MORROW Last Admin: 11/17/18 15:31 Dose: 650 mg Documented by: Acetaminophen/Hydrocodone Bitart ([place] 5/325) 2 each PO Q6H PRN PRN Reason: Pain, Moderate (4-6) Albuterol (Proventil) 2.5 mg IH Q4H PRN PRN Reason: Wheezing Alprazolam (Xanax) 0.5 mg PO TID PRN PRN Reason: Anxiety Arformoterol Tartrate (Brovana Nebu) 15 mcg IH Q12HRT [facility] Aspirin (Halfprin Ec) 81 mg PO QDAY [facility] Atorvastatin Calcium (Lipitor) 40 mg PO QHS [facility] Budesonide (Pulmicort) 0.5 mg IH Q12HRT [facility] Clopidogrel Bisulfate (Plavix) 75 mg PO QDAY [facility] Dextrose (D50w (25gm) Syringe) 50 ml IV PRN PRN PRN Reason: Hypoglycemia Digoxin (Lanoxin) 0.25 mg PO DAILY@1700 [facility] Diltiazem HCl (Cardizem Cd) 120 mg PO QDAY [facility] Last Admin: 11/20/18 15:43 Dose: Not Given Documented by: Furosemide (Lasix) 40 mg PO QDAY [facility] Gabapentin (Neurontin) 800 mg PO TID [facility] Last Admin: 11/20/18 15:29 Dose: 800 mg Documented by: Hydromorphone HCl (Dilaudid) 0.5 mg IV Q3H PRN PRN Reason: Pain , Severe (7-10) Last Admin: 11/20/18 12:54 Dose: 0.5 mg Documented by: Insulin Human Lispro (Humalog) 0 unit SUB-Q [facility]; Protocol Last Admin: 11/20/18 13:00 Dose: 3 unit Documented by: Ondansetron HCl (Zofran) 4 mg IV Q8H PRN PRN Reason: Nausea And Vomiting Pantoprazole Sodium (Protonix) 40 mg PO QDAY [facility] Sodium Chloride (Sodium Chloride Flush Syringe 10 Ml) 10 ml IV BID [facility] Last Admin: 11/20/18 10:55 Dose: 10 ml Documented by: Sodium Chloride (Sodium Chloride Flush Syringe 10 Ml) 10 ml IV PRN PRN PRN Reason: LINE FLUSH Tiotropium Trilla (Spiriva) 1 puff IH Q24HRT [facility] Warfarin Sodium (Coumadin) 5 mg PO DAILY@1700 [facility] Physical Examination - Physical Exam Narrative exam: General appearance: Alert in NAD, debilitated Eyes: anicteric sclerae, moist conjunctivae; no lid-lag; PERRLA HENT: Atraumatic; oropharynx limited. Neck: Trachea midline; supple, no thyromegaly or lymphadenopathy Lungs: CTA CV: RRR Abdomen: Soft, obese non tender Extremities: significant fior leg edema L>R, left TMA stump ok, left tight inner wound +left thigh wound [id number] with copious sero-purulent wound drainage, with moderate odor noted. Right foot dorsum wound 4.5x6.5 cm no depth covered with slough. Minimal serosanguinous drainage and odor noted. Skin: as above Psych: Appropriate affect, alert and oriented to person, place and time. Neuro: alert and oriented x 3. Moving all extermities - Constitutional Vitals: Vital Signs Temp Pulse Resp BP Pulse Ox 98.1 F 95 H 20 113/64 98 11/20/18 12:17 11/20/18 12:17 11/20/18 12:17 11/20/18 15:43 11/20/18 12:17 Temperature -Last 24 Hours Temperature 98.1 F Temperature 98.0 F Temperature 98.1 F Temperature 98.6 F Results - Labs CBC & Chem 7: 11/20/18 09:21 11/19/18 09:36 Labs: Abnormal lab results 11/19/18 11/19/18 11/20/18 Range/Units 16:39 22:06 09:11 Hgb (11.8-15.2) gm/dl Hct (35.5-45.6) % POC Glucose 118 H 239 H 134 H (70-105) 11/20/18 11/20/18 Range/Units 09:21 12:17 Hgb 7.8 L (11.8-15.2) gm/dl Hct 24.3 L (35.5-45.6) % POC Glucose 212 H (70-105) Assessment and Plan Cultures: none Assessment: 57 y/o male with diabetes, hypertension, history of left leg DVT, arthritis, COPD, pulmonary hypertension, active tobacco use, peripheral arterial disease, Afib on coumadin, status post left foot transmetatarsal amputation; admitted on 11/16/2018 due to bloody stools for 24 hour. patient is unable to provide history as he is not the best historian. 1) SIRS v/s sepsis: Present on admission, manifested by hypotension and leukocytosis. Etiology due to severe anemia, less likely chronic legs wound cellulitis. 2) Chronic legs wounds with cellulitis: left tight inner wound [id number] with copious sero-purulent wound drainage, with moderate odor noted. Right foot dorsum wound 4.5x6.5 cm no depth covered with slough. Minimal serosanguinous drainage and odor noted. Patient seen during recent admission for left thigh worsening wounds on his lower extremities. Arterial duplex and CTA with runoff showed extensive bilateral lower extremity peripheral vascular disease. Patient was seen by vascular surgery, on 11/06/2018, patient underwent left lower extremity angioplasty. On 11/07/2018, patient underwent bedside excisional debridement of left thigh wound, right foot wound and healed wound by general surgery. Cultures from debridement grew MRSA and Acinetobacter. Acinetobacter felt to be most likely a colonizer. He was treated with IV vancomycin while inpatient. Attempted to approve IV Dalvance not approved, patient was discharged on PO Linezolid 600 mg BID x 14 days- approved by case management. He also had a wound vac placed to the left thigh and home health care set up. He states the wound vac came off at home and it is unclear if home health care came. The patient lives in a home with his landlord and landluked's . He denies f/c. He has not followed up as outpatient in wound care clinic. He does not know if he finished the full course of PO linezolid. 3) Severe PVD 4) GI bleed and coumadin toxicity 5) Severe anemia Recommendations: - obtain blood cultures - CRP - contact isolation - vascular consult - genral surgery on board - start vancomycin and cefepime - monitor leukocytosis Will follow. Griselda Akers MD Infectious Diseases [employer] [facility] M [phone] O [phone]
[2018-11-20] MEDS ORDERED: .VANCOMYCIN VIAL 1,000 MG in NACL 0.9% 100 ML IV SCH (17:00)
[2018-11-20] MEDS ORDERED: COUMADIN PO SCH ×2 (17:00)
[2018-11-20] MEDS: LANOXIN PO SCH (17:22)
[2018-11-20] MEDS ORDERED: VANCOMYCIN 2,000 MG in NACL 0.9% 500 ML 500 ML IV ONE (18:00)
[2018-11-20] MEDS: MAXIPIME/NS 2 GM/100 ML 2 GM/100 ML BAG IV SCH ×2 (18:09→22:01)
[2018-11-20] MEDS: PULMICORT IH SCH (20:28)
[2018-11-20] MEDS: BROVANA NEBU IH SCH (20:28)
[2018-11-20] MEDS ORDERED: NON-FORMULARY (Fluticasone/Salmeterol [Advair 250-50 Diskus] 1 EACH) IH SCH (22:00)
[2018-11-21] MEDS: DILAUDID IV PRN ×6 (01:12→23:03)
[2018-11-21] MEDS: MAXIPIME/NS 2 GM/100 ML 2 GM/100 ML BAG IV SCH ×3 (06:18→22:36)
[2018-11-21 06:24] LABS: Hematocrit 25.4 % (35.5-45.6); Mean Corpuscular HGB Conc 32 % (32-34); Mean Corpuscular Volume 88 fl (84-94); Platelet Count 226 K/mm3 (140-440); Red Blood Count 2.88 M/mm3 (3.65-5.03); Red Cell Distribution Width 18.7 % (13.2-15.2)
[2018-11-21 06:34] LABS: INR 1.15 (0.87-1.13)
[2018-11-21 06:49] LABS: BUN/Creatinine Ratio 11; Blood Urea Nitrogen 9 mg/dL (9-20); Calcium 8.1 mg/dL (8.4-10.2); Hemolysis Index 0
[2018-11-21] MEDS: BROVANA NEBU IH SCH ×2 (07:25→19:38)
[2018-11-21] MEDS: PULMICORT IH SCH ×2 (07:25→19:38)
[2018-11-21] MEDS: HumaLOG SUB-Q SCH ×4 (08:40→22:37)
--- NOTE | 2018-11-21 08:58 | Progress Note ---
Assessment and Plan Cultures: none Assessment: 58 y/o male with diabetes, hypertension, history of left leg DVT, arthritis, COPD, pulmonary hypertension, active tobacco use, peripheral arterial disease, Afib on coumadin, status post left foot transmetatarsal amputation; admitted on 11/16/2018 due to bloody stools for 24 hour. patient is unable to provide history as he is not the best historian. 1) SIRS v/s sepsis: Improved.no leukocytosis or hypotension. Etiology due to severe anemia, less likely chronic legs wound cellulitis. -CRP 5.40 2) Chronic legs wounds with cellulitis: left tight inner wound [id number] with copious sero-purulent wound drainage, with moderate odor noted. Right foot dorsum wound 4.5x6.5 cm no depth covered with slough. Minimal serosanguinous drainage and odor noted. Patient seen during recent admission for left thigh worsening wounds on his lower extremities. Arterial duplex and CTA with runoff showed extensive bilateral lower extremity peripheral vascular disease. Patient was seen by vascular surgery, on 11/06/2018, patient underwent left lower extremity angioplasty. On 11/07/2018, patient underwent bedside excisional debridement of left thigh wound, right foot wound and healed wound by general surgery. Cultures from debridement grew MRSA and Acinetobacter. Acinetobacter felt to be most likely a colonizer. He was treated with IV vancomycin while inpatient. Attempted to approve IV Dalvance not approved, patient was discharged on PO Linezolid 600 mg BID x 14 days- approved by case management. He also had a wound vac placed to the left thigh and home health care set up. He states the wound vac came off at home and it is unclear if home health care came. The patient lives in a home with his landlord and landluked's . He denies f/c. He has not followed up as outpatient in wound care clinic. He does not know if he finished the full course of PO linezolid. 3) Severe PVD 4) GI bleed and coumadin toxicity 5) Severe anemia 6) Malnutrition: albumin 2.7 Recommendations: - contact isolation - f/u vascular consult - plan for revascularization of RLE as outpatient - continue vancomycin and cefepime, D2 -Plan to switch to oral antibiotics tomorrow [facility] M: [phone] O:[phone] Subjective Date of service: 11/21/18 Principal diagnosis: GI bleed Interval history: Patient seen and examined. Continues to have left thigh pain and drainage from the site. No fevers. Objective - Exam Narrative Exam: General appearance: Alert in NAD, debilitated Eyes: anicteric sclerae, moist conjunctivae; no lid-lag; PERRLA HENT: Atraumatic; oropharynx limited. Neck: Trachea midline; supple, no thyromegaly or lymphadenopathy Lungs: CTA CV: RRR Abdomen: Soft, obese non tender Extremities: significant fior leg edema L>R, left TMA stump ok, left tight inner wound +left thigh wound [id number] with copious sero-purulent wound drainage continuing. Right foot dorsum wound 4.5x6.5 cm no depth covered with slough. Minimal serosanguinous drainage and odor noted. Skin: as above Psych: Appropriate affect, alert and oriented to person, place and time. Neuro: alert and oriented x 3. Moving all extermities - Constitutional Vitals: Vital Signs Temp Pulse Resp BP Pulse Ox 97.6 F 81 20 105/68 86 11/21/18 04:32 11/21/18 07:46 11/21/18 07:46 11/21/18 04:32 11/21/18 07:29 Temperature -Last 24 Hours Temperature 97.6 F Temperature 97.9 F Temperature 98.3 F Temperature 98.1 F - Labs CBC & Chem 7: 11/21/18 05:48 11/21/18 05:48 Labs: Abnormal lab results 11/20/18 11/20/18 11/20/18 Range/Units 09:11 09:21 12:17 RBC (3.65-5.03) M/mm3 Hgb 7.8 L (11.8-15.2) gm/dl Hct 24.3 L (35.5-45.6) % RDW (13.2-15.2) % PT (12.2-14.9) Sec. INR (0.87-1.13) Glucose (75-100) mg/dL POC Glucose 134 H 212 H (70-105) Calcium (8.4-10.2) mg/dL C-Reactive Protein (0.00-1.30) mg/dL 11/20/18 11/20/1819 Range/Units 16:44 17:13 21:49 RBC (3.65-5.03) M/mm3 Hgb (11.8-15.2) gm/dl Hct (35.5-45.6) % RDW (13.2-15.2) % PT (12.2-14.9) Sec. INR (0.87-1.13) Glucose (75-100) mg/dL POC Glucose 227 H 122 H (70-105) Calcium (8.4-10.2) mg/dL C-Reactive Protein 5.40 H (0.00-1.30) mg/dL 11/21/18 11/21/18 11/21/18 Range/Units 05:48 05:48 05:48 RBC 2.88 L (3.65-5.03) M/mm3 Hgb 8.0 L (11.8-15.2) gm/dl Hct 25.4 L (35.5-45.6) % RDW 18.7 H (13.2-15.2) % PT 15.4 H (12.2-14.9) Sec. INR 1.15 H (0.87-1.13) Glucose 159 H (75-100) mg/dL POC Glucose (70-105) Calcium 8.1 L (8.4-10.2) mg/dL C-Reactive Protein (0.00-1.30) mg/dL 11/21/18 Range/Units 07:58 RBC (3.65-5.03) M/mm3 Hgb (11.8-15.2) gm/dl Hct (35.5-45.6) % RDW (13.2-15.2) % PT (12.2-14.9) Sec. INR (0.87-1.13) Glucose (75-100) mg/dL POC Glucose 168 H (70-105) Calcium (8.4-10.2) mg/dL C-Reactive Protein (0.00-1.30) mg/dL
[2018-11-21] MEDS: SPIRIVA IH SCH (09:25)
[2018-11-21] MEDS ORDERED: SILVER NITRATE TP ONE (09:36)
[2018-11-21] MEDS: VANCOMYCIN 1,500 MG in NACL 0.9% 500 ML 500 ML IV SCH ×2 (09:41→20:30)
[2018-11-21] MEDS: NEURONTIN PO SCH ×3 (09:41→20:29)
[2018-11-21] MEDS: PROTONIX PO SCH (09:42)
[2018-11-21] MEDS: PLAVIX PO SCH (09:42)
[2018-11-21] MEDS: LASIX PO SCH (09:42)
[2018-11-21] MEDS: HALFPRIN EC PO SCH (09:42)
[2018-11-21] MEDS ORDERED: CARDIZEM CD PO SCH ×2 (10:00)
[2018-11-21] MEDS ORDERED: XYLOCAINE TOPICAL 4% TP ONE (10:30)
[2018-11-21] MEDS: CARDIZEM CD PO SCH (13:50)
[2018-11-21] MEDS: SODIUM CHLORIDE FLUSH SYRINGE 10 ML IV SCH ×2 (13:51→22:37)
[2018-11-21] MEDS ORDERED: DILAUDID IV ONE (14:35)
--- NOTE | 2018-11-21 15:03 | Procedure Note ---
Date of procedure: 11/21/18 Pre-op diagnosis: infected left thigh wound, right foot wound Post-op diagnosis: same Procedure: excisional debridement of left thigh and right foot wounds Findings: Consent obtained and time out performed. 4% topical lidocaine applied to both wounds for several minutes. First the right foot wound was sharply debrided using scissors, foreceps, and curette. Most of the subcutaneous slough was removed. The wound was checked for hemostasis which was adequately achieved with pressure. The wound was cleansed and alginate applied to wound bed. This was covered with 4x4 gauze and wrapped with kerlex. Next, the left thigh wound was debrided. There was purulent drainage from the wound. The wound was probed with a gloved finder and any loculations broken up using blunt dissection. The subcutaneous fibrin, exudate, and slough was then sharply debrided using a curette. There was pinpoint bleeding from the wound bed. This was controlled with pressure. The wound was covered with 4x4 gauze and foam dressing. (This wound will be packed with dakins solution by nursing today.) The patient tolerated the procedure well. All sharps were disposed of appropriately. Anesthesia: local Surgeon: REBECA JUAREZ Estimated blood loss: minimal Pathology: none Condition: stable Disposition: no change
--- NOTE | 2018-11-21 15:51 | Progress Note ---
Assessment and Plan Assessment and plan: 57-year-old man with a history of hypertension, diabetes, CHF, COPD, hyperlipidemia, A. fib on coumadin comes to the emergency room with complaints of diarrhea that started yesterday. He said multiple episodes of diarrhea yesterday, continue until today. He also complained of dark stool, he thinks that it started the day before admission. He feels weak. Patient was just discharged from the hospital on the 12 of this month GI bleed, melena SIRS, DOUBT SEPSIS Reactive Leukocytosis secondary to severe anemia Acute Blood loss anemia Coumadin toxicity No evidence of overdose. Mild gastritis ILD on revatio Hypertension Diabetes mellitus Lower extremity wound Secondary coagulopathy, INR Paroxysmal Atrial fibrillation Morbid Obesity CHF, Stable Tobacco abuse COPD Hyperlipidemia, A. fib PVD Plan Continue supportive care. ID and surgery consulted patient had debridement of the right foot and left thigh COLONOSCOPY- 6-10 mm polyp x 2 transverse (hot snare) On Abx per ID Restart anticoagulation in one day if no further surgical need Interval Lasix s/p PRBC and FFP Follow hemoglobin, INR, Continue protonix Internal Hemorrhoids HOLD DIGOXIN AND CARDIZEM DUE TO LOW BP Check fingersticks, initiate insulin sliding-scale hold antihypertensives, blood pressure will not tolerate Continue appropriate outpatient medications Echocardiogram from 08/02/2018 revealed EF of 40-45% with global left ventricular systolic function mildly decreased. Patient had evidence of severe pulmonary hypertension. Patient likely will benefit from SNF WOUND VAC SINCE LAST ADMISSION Patient has poor prognosis and needs SNF or risk loosing more limbs. Not sure he completed his linozilid from last admission History Interval history: Patient was seen and evaluated this morning, patient said he is feeling okay. No new complaints. Hospitalist Physical - Physical exam Narrative exam: Not in cardiopulmonary distress. The patient appeared well nourished and normally developed. Vital signs as documented. Head exam is unremarkable. No scleral icterus . Neck is without jugular venous distension, thyromegaly, or carotid bruits. Lungs are clear to auscultation. Cardiac exam reveals regular rate and Rhythm. Abdominal exam reveals normal bowel sounds, no masses, no organomegaly and no aortic enlargement. Extremities right foot and left thigh ulcer. 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 No focal weakness. - Constitutional Vitals: Temp Pulse Resp BP Pulse Ox 97.6 F 95 H 20 107/65 97 11/21/18 11:26 11/21/18 13:50 11/21/18 11:26 11/21/18 13:50 11/21/18 11:26 General appearance: Present: no acute distress Results - Labs CBC & Chem 7: 11/21/18 05:48 11/21/18 05:48 Labs: Laboratory Last Values WBC 8.7 K/mm3 (4.5-11.0) 11/21/18 05:48 RBC 2.88 M/mm3 (3.65-5.03) L 11/21/18 05:48 Hgb 8.0 gm/dl (11.8-15.2) L 11/21/18 05:48 Hct 25.4 % (35.5-45.6) L 11/21/18 05:48 MCV 88 fl (84-94) 11/21/18 05:48 MCH 28 pg (28-32) 11/21/18 05:48 MCHC 32 % (32-34) 11/21/18 05:48 RDW 18.7 % (13.2-15.2) H 11/21/18 05:48 Plt Count 226 K/mm3 (140-440) 11/21/18 05:48 Lymph % (Auto) 5.2 % (13.4-35.0) L 11/17/18 04:56 [place] % (Auto) 6.2 % (0.0-7.3) 11/17/18 04:56 Eos % (Auto) 0.7 % (0.0-4.3) 11/17/18 04:56 Baso % (Auto) 0.1 % (0.0-1.8) 11/17/18 04:56 Lymph # 0.7 K/mm3 (1.2-5.4) L 11/17/18 04:56 [place] # 0.8 K/mm3 (0.0-0.8) 11/17/18 04:56 Eos # 0.1 K/mm3 (0.0-0.4) 11/17/18 04:56 Baso # 0.0 K/mm3 (0.0-0.1) 11/17/18 04:56 Add Manual Diff Complete 11/16/18 17:15 Total Counted 100 11/16/18 17:15 Seg Neutrophils % 87.8 % (40.0-70.0) H 11/17/18 04:56 Seg Neuts % (Manual) 93.0 % (40.0-70.0) H 11/16/18 17:15 Band Neutrophils % 0 % 11/16/18 17:15 Lymphocytes % (Manual) 3.0 % (13.4-35.0) L 11/16/18 17:15 Reactive Lymphs % (Man) 0 % 11/16/18 17:15 Monocytes % (Manual) 4.0 % (0.0-7.3) 11/16/18 17:15 Eosinophils % (Manual) 0 % (0.0-4.3) 11/16/18 17:15 Basophils % (Manual) 0 % (0.0-1.8) 11/16/18 17:15 Metamyelocytes % 0 % 11/16/18 17:15 Myelocytes % 0 % 11/16/18 17:15 Promyelocytes % 0 % 11/16/18 17:15 Blast Cells % 0 % 11/16/18 17:15 Nucleated RBC % Not Reportable 11/16/18 17:15 Seg Neutrophils # 12.0 K/mm3 (1.8-7.7) H 11/17/18 04:56 Seg Neutrophils # Man 16.6 K/mm3 (1.8-7.7) H 11/16/18 17:15 Band Neutrophils # 0.0 K/mm3 11/16/18 17:15 Lymphocytes # (Manual) 0.5 K/mm3 (1.2-5.4) L 11/16/18 17:15 Abs React Lymphs (Man) 0.0 K/mm3 11/16/18 17:15 Monocytes # (Manual) 0.7 K/mm3 (0.0-0.8) 11/16/18 17:15 Eosinophils # (Manual) 0.0 K/mm3 (0.0-0.4) 11/16/18 17:15 Basophils # (Manual) 0.0 K/mm3 (0.0-0.1) 11/16/18 17:15 Metamyelocytes # 0.0 K/mm3 11/16/18 17:15 Myelocytes # 0.0 K/mm3 11/16/18 17:15 Promyelocytes # 0.0 K/mm3 11/16/18 17:15 Blast Cells # 0.0 K/mm3 11/16/18 17:15 WBC Morphology Not Reportable 11/16/18 17:15 Hypersegmented Neuts Not Reportable 11/16/18 17:15 Hyposegmented Neuts Not Reportable 11/16/18 17:15 Hypogranular Neuts Not Reportable 11/16/18 17:15 Smudge Cells Not Reportable 11/16/18 17:15 Toxic Granulation Not Reportable 11/16/18 17:15 Toxic Vacuolation Not Reportable 11/16/18 17:15 Dohle Bodies Not Reportable 11/16/18 17:15 Pelger-Huet Anomaly Not Reportable 11/16/18 17:15 Amanda Rods Not Reportable 11/16/18 17:15 Platelet Estimate Appears normal 11/16/18 17:15 Clumped Platelets Not Reportable 11/16/18 17:15 Plt Clumps, EDTA Not Reportable 11/16/18 17:15 Large Platelets Not Reportable 11/16/18 17:15 Giant Platelets Not Reportable 11/16/18 17:15 Platelet Satelliting Not Reportable 11/16/18 17:15 Plt Morphology Comment Not Reportable 11/16/18 17:15 RBC Morphology Not Reportable 11/16/18 17:15 Dimorphic RBCs Not Reportable 11/16/18 17:15 Polychromasia Not Reportable 11/16/18 17:15 Hypochromasia Not Reportable 11/16/18 17:15 Poikilocytosis Not Reportable 11/16/18 17:15 Anisocytosis 1+ 11/16/18 17:15 Microcytosis Not Reportable 11/16/18 17:15 Macrocytosis Not Reportable 11/16/18 17:15 Spherocytes Not Reportable 11/16/18 17:15 Pappenheimer Bodies Not Reportable 11/16/18 17:15 Sickle Cells Not Reportable 11/16/18 17:15 Target Cells Not Reportable 11/16/18 17:15 Tear Drop Cells Not Reportable 11/16/18 17:15 Ovalocytes Few 11/16/18 17:15 Helmet Cells Not Reportable 11/16/18 17:15 Burton-Sigel Bodies Not Reportable 11/16/18 17:15 [place] Rings Not Reportable 11/16/18 17:15 Krissy Cells Not Reportable 11/16/18 17:15 Bite Cells Not Reportable 11/16/18 17:15 Crenated Cell Not Reportable 11/16/18 17:15 Elliptocytes Not Reportable 11/16/18 17:15 Acanthocytes (Spur) Not Reportable 11/16/18 17:15 Rouleaux Not Reportable 11/16/18 17:15 Hemoglobin C Crystals Not Reportable 11/16/18 17:15 Schistocytes Not Reportable 11/16/18 17:15 Malaria parasites Not Reportable 11/16/18 17:15 Elias Bodies Not Reportable 11/16/18 17:15 Hem Pathologist Commnt No 11/16/18 17:15 PT 15.4 Sec. (12.2-14.9) H 11/21/18 05:48 INR 1.15 (0.87-1.13) H 11/21/18 05:48 APTT 43.5 Sec. (24.2-36.6) H 11/16/18 17:15 Sodium 139 mmol/L (137-145) 11/21/18 05:48 Potassium 3.8 mmol/L (3.6-5.0) 11/21/18 05:48 Chloride 103.8 mmol/L (98-107) 11/21/18 05:48 Carbon Dioxide 25 mmol/L (22-30) 11/21/18 05:48 Anion Gap 14 mmol/L 11/21/18 05:48 BUN 9 mg/dL (9-20) 11/21/18 05:48 Creatinine 0.8 mg/dL (0.8-1.5) 11/21/18 05:48 Estimated GFR > 60 ml/min 11/21/18 05:48 BUN/Creatinine Ratio 11 % 11/21/18 05:48 Glucose 159 mg/dL (75-100) H 11/21/18 05:48 POC Glucose 225 (70-105) H 11/21/18 11:30 Calcium 8.1 mg/dL (8.4-10.2) L 11/21/18 05:48 Total Bilirubin 0.50 mg/dL (0.1-1.2) 11/16/18 17:15 AST 23 units/L (5-40) 11/16/18 17:15 ALT 44 units/L (7-56) 11/16/18 17:15 Alkaline Phosphatase 77 units/L (35-129) 11/16/18 17:15 C-Reactive Protein 5.40 mg/dL (0.00-1.30) H 11/20/18 16:44 Total Protein 4.7 g/dL (6.3-8.2) L 11/16/18 17:15 Albumin 2.7 g/dL (3.9-5) L 11/16/18 17:15 Albumin/Globulin Ratio 1.4 % 11/16/18 17:15 Blood Type A POSITIVE 11/16/18 17:15 Antibody Screen Negative 11/16/18 17:15 Crossmatch See Detail 11/16/18 17:15 Active Medications - Current Medications Current Medications: Generic Name Dose Route Start Last Admin Trade Name Freq PRN Reason Stop Dose Admin Acetaminophen 650 mg 11/16/18 23:29 11/17/18 15:31 Tylenol PO 650 mg Q4H PRN Administration Pain MILD(1-3)/Fever >100.5/MORROW Acetaminophen/Hydrocodone Bitart 2 each 11/20/18 11:24 11/20/18 22:43 [place] 5/325 PO 2 each Q6H PRN Administration Pain, Moderate (4-6) Albuterol 2.5 mg 11/20/18 11:27 Proventil IH Q4H PRN Wheezing Alprazolam 0.5 mg 11/20/18 11:27 Xanax PO TID PRN Anxiety Arformoterol Tartrate 15 mcg 11/20/18 20:00 11/21/18 07:25 Brovana Nebu IH 15 mcg Q12HRT RAJAT Administration Aspirin 81 mg 11/21/18 10:00 11/21/18 09:42 Halfprin Ec PO 81 mg QDAY RAJAT Administration Atorvastatin Calcium 40 mg 11/20/18 22:00 11/20/18 22:01 Lipitor PO 40 mg QHS RAJAT Administration Budesonide 0.5 mg 11/20/18 20:00 11/21/18 07:25 Pulmicort IH 0.5 mg Q12HRT RAJAT Administration Clopidogrel Bisulfate 75 mg 11/21/18 10:00 11/21/18 09:42 Plavix PO 75 mg QDAY RAJAT Administration Dextrose 50 ml 11/16/18 23:31 D50w (25gm) Syringe IV PRN PRN Hypoglycemia Digoxin 0.25 mg 11/20/18 17:00 11/20/18 17:22 Lanoxin PO 0.25 mg DAILY@1700 RAJAT Administration Diltiazem HCl 120 mg 11/20/18 14:00 11/21/18 13:50 Cardizem Cd PO 120 mg QDAY RAJAT Administration Furosemide 40 mg 11/21/18 10:00 11/21/18 09:42 Lasix PO 40 mg QDAY RAJAT Administration Gabapentin 800 mg 11/20/18 14:00 11/21/18 13:49 Neurontin PO 800 mg TID RAJAT Administration Hydromorphone HCl 0.5 mg 11/20/18 11:33 11/21/18 14:43 Dilaudid IV 0.5 mg Q3H PRN Administration Pain , Severe (7-10) Cefepime HCl 2 gm in 100 mls @ 200 mls/hr 11/20/18 17:00 11/21/18 13:48 Maxipime/Ns 2 Gm/100 Ml IV 200 mls/hr Q8HR RAJAT Administration Protocol Vancomycin HCl 1,500 mg/ 530 mls @ 333.333 mls/hr 11/21/18 08:00 11/21/18 09:41 Sodium Chloride IV 333.333 mls/hr Q12H RAJAT Administration Insulin Human Lispro 0 unit 11/18/18 17:45 11/21/18 12:00 Humalog SUB-Q 3 unit ACHS RAJAT Administration Protocol Ondansetron HCl 4 mg 11/16/18 23:29 Zofran IV Q8H PRN Nausea And Vomiting Pantoprazole Sodium 40 mg 11/21/18 10:00 11/21/18 09:42 Protonix PO 40 mg QDAY RAJAT Administration Sodium Chloride 10 ml 11/17/18 10:00 11/21/18 13:51 Sodium Chloride Flush Syringe 10 Ml IV 10 ml BID RAJAT Administration Sodium Chloride 10 ml 11/16/18 23:29 Sodium Chloride Flush Syringe 10 Ml IV PRN PRN LINE FLUSH Sodium Hypochlorite 1 applic 11/21/18 16:00 Dakin's Half Strength TP DAILY RAJAT Tiotropium [place] 1 puff 11/21/18 09:00 11/21/18 09:25 Spiriva IH 1 puff Q24HRT RAJAT Administration Warfarin Sodium 5 mg 11/21/18 17:00 Coumadin PO DAILY@1700 [facility] Nutrition/Malnutrition Assess - Dietary Evaluation Nutrition/Malnutrition Findings: Nutrition Notes Start: 11/21/18 13:31 Freq: Status: Active Protocol: Document 11/21/18 13:31 RM (Rec: 11/21/18 13:57 RM [id number]) Nutrition Notes Need for Assessment generated from: MD Order Initial or Follow up Assessment Current Diagnosis COPD,Hypertension,Heart Failure,Hyperlipidemia Other Pertinent Diagnosis R foot diabetic ulcer, L thigh wound, GI bleed, PVD, Coumadin toxicity Current Diet Cardiac/Consistent CHO, GI soft w/Glucerna BID Labs/Tests Reviewed Pertinent Medications Lasix Height 5 ft 7 in Weight 114.2 kg Usual Body Weight 109.09 kg [place] Body Weight (kg) 67.27 BMI 39.4 Subjective/Other Information Consulted for malnutrition and screened for Coumadin/Vit K diet education. Pt stated that [employer] his appetite was poor and that he was not eating X 1 week. Stated he eats 50% of his meals here. Stated UBW is 240 lbs but unsure of how long ago he saw he weighed that. Pt was already familiar with Coumadin/Vit K diet. No physical signs of malnutrition. Percent of energy/protein needs met: 80%/56% Burn Absent Trauma Absent #1 Nutrition Diagnosis Inadequate protein intake Etiology wound healing As Evidenced by Signs and Symptoms pt meeting 56% of protein needs Is patient on ventilator? No Is Patient Ambulatory and/or Out of Bed No REE-([facility]-confined to bed) 2297.136 Kcal/Kg value to use for calculation 16 Approximate Energy Requirements Using 1827 kcal/Kg Calculation Used for Recommendations Kcal/kg Additional Notes Protein Needs: 109-137g (1.2-1 .5g/kg 91kg adjBW) Fluid Needs: 1 ml/kcal Nutrition Intervention Change Diet Order: Continue current Add Supplement/Snack (indicate name/kcal Glucerna Vanilla TID /protein ) Provides kCal: 660 Provides Protein (gm) 30 Goal #1 Meet at least 75% of calorie and protein needs via PO and ONS intakes Anticipated Discharge Needs: Cardiac/Consistent CHO Follow-Up By: 11/24/18 Additional Comments Follow for PO and ONS intakes
[2018-11-21] MEDS: LANOXIN PO SCH (18:27)
[2018-11-21] MEDS: COUMADIN PO SCH (18:30)
[2018-11-21] MEDS: DAKIN'S HALF STRENGTH TP SCH (19:40)
[2018-11-22] MEDS: DILAUDID IV PRN ×5 (04:54→21:33)
[2018-11-22] MEDS: MAXIPIME/NS 2 GM/100 ML 2 GM/100 ML BAG IV SCH ×3 (05:39→23:01)
[2018-11-22] MEDS: BROVANA NEBU IH SCH ×2 (08:28→19:39)
[2018-11-22] MEDS: PULMICORT IH SCH ×2 (08:28→19:39)
[2018-11-22] MEDS: HumaLOG SUB-Q SCH ×4 (08:45→23:10)
[2018-11-22] MEDS: SPIRIVA IH SCH (08:46)
[2018-11-22] MEDS: NEURONTIN PO SCH ×3 (10:04→20:41)
[2018-11-22] MEDS: VANCOMYCIN 1,500 MG in NACL 0.9% 500 ML 500 ML IV SCH ×2 (10:05→20:41)
[2018-11-22 10:30] LABS: Basophils # (Auto) 0.1 K/mm3 (0.0-0.1); Basophils % (Auto) 0.7 % (0.0-1.8); Eosinophils # (Auto) 0.1 K/mm3 (0.0-0.4); Hematocrit 25.8 % (35.5-45.6); Hemoglobin 7.9 gm/dl (11.8-15.2); Lymphocytes # (Auto) 0.8 K/mm3 (1.2-5.4); Lymphocytes % (Auto) 6.1 % (13.4-35.0); Mean Corpuscular HGB Conc 31 % (32-34); Mean Corpuscular Volume 91 fl (84-94); Monocytes # (Auto) 0.8 K/mm3 (0.0-0.8); Platelet Count 237 K/mm3 (140-440); Red Blood Count 2.84 M/mm3 (3.65-5.03)
[2018-11-22 10:46] LABS: INR 1.11 (0.87-1.13)
[2018-11-22 10:52] LABS: BUN/Creatinine Ratio 16; Blood Urea Nitrogen 11 mg/dL (9-20); Calcium 8.2 mg/dL (8.4-10.2); Hemolysis Index 1
--- NOTE | 2018-11-22 11:08 | Event Note ---
Date: 11/22/18 Pt s/p debridement of L thigh and R foot wounds. Continue current wound care regimen. Will reevaluate wound tomorrow to determine if wound vac can be reapplied to left thigh wound. Discussed with case management.
--- NOTE | 2018-11-22 11:09 | Progress Note ---
Assessment and Plan Cultures: none Assessment: 58 y/o male with diabetes, hypertension, history of left leg DVT, arthritis, COPD, pulmonary hypertension, active tobacco use, peripheral arterial disease, Afib on coumadin, status post left foot transmetatarsal amputation; admitted on 11/16/2018 due to bloody stools for 24 hour. patient is unable to provide history as he is not the best historian. 1) SIRS v/s sepsis: Leukocytosis noted, possibly reactive from left thigh debridement on 11/21/18. -CRP 5.40 2) Chronic legs wounds with cellulitis: left tight inner wound [id number] with copious sero-purulent wound drainage, with moderate odor noted. Right foot dorsum wound 4.5x6.5 cm no depth covered with slough. Minimal serosanguinous drainage and odor noted. Patient seen during recent admission for left thigh worsening wounds on his lower extremities. Arterial duplex and CTA with runoff showed extensive bilateral lower extremity peripheral vascular disease. Patient was seen by vascular surgery, on 11/06/2018, patient underwent left lower extremity angioplasty. On 11/07/2018, patient underwent bedside excisional debridement of left thigh wound, right foot wound and healed wound by general surgery. Cultures from debridement grew MRSA and Acinetobacter. Acinetobacter felt to be most likely a colonizer. He was treated with IV vancomycin while inpatient. Attempted to approve IV Dalvance not approved, patient was discharged on PO Linezolid 600 mg BID x 14 days- approved by case management. He also had a wound vac placed to the left thigh and home health care set up. He states the wound vac came off at home and it is unclear if home health care came. The patient lives in a home with his hansalord and oswaldod's . He denies f/c. He has not followed up as outpatient in wound care clinic. He does not know if he finished the full course of PO linezolid. S/p excisional debridement of left thigh and right foot wounds 11/21/18. Left thigh wound with increased copious purulent drainage. Will order CT w/contrast to evaluate possible underylying abscess. 3) Severe PVD 4) GI bleed and coumadin toxicity 5) Severe anemia 6) Malnutrition: albumin 2.7 Recommendations: - contact isolation - f/u vascular consult - plan for revascularization of RLE as outpatient -continue vancomycin and cefepime for now, D3 -CT of left lower extremity with contrast to evaluate possible underlying abscess ordered -CBC ordered for tomorrow [facility] M: [phone] O:[phone] Subjective Date of service: 11/22/18 Principal diagnosis: GI bleed Interval history: Patient seen and examined. Left thigh pain improved., s/p excisional debridement. no fevers. Objective - Exam Narrative Exam: General appearance: Alert in NAD, debilitated Eyes: anicteric sclerae, moist conjunctivae; no lid-lag; PERRLA HENT: Atraumatic; oropharynx limited. Neck: Trachea midline; supple, no thyromegaly or lymphadenopathy Lungs: CTA CV: RRR Abdomen: Soft, obese non tender Extremities: left TMA stump ok,s/p left thigh wound debridement, continued copious purulent wound drainage. Right foot dorsum wound with dressing, no drainage. Skin: as above Psych: Appropriate affect, alert and oriented to person, place and time. Neuro: alert and oriented x 3. Moving all extermities - Constitutional Vitals: Vital Signs Temp Pulse Resp BP Pulse Ox 98.3 F 80 20 119/53 88 11/22/18 04:50 11/22/18 08:32 11/22/18 08:32 11/22/18 04:50 11/22/18 08:52 Temperature -Last 24 Hours Temperature 98.3 F Temperature 98.3 F Temperature 97.2 F Temperature 97.5 F Temperature 97.6 F - Labs CBC & Chem 7: 11/22/18 09:28 11/22/18 09:28 Labs: Abnormal lab results 11/21/18 11/21/18 11/21/18 Range/Units 11:30 16:01 20:52 WBC (4.5-11.0) K/mm3 RBC (3.65-5.03) M/mm3 Hgb (11.8-15.2) gm/dl Hct (35.5-45.6) % MCHC (32-34) % RDW (13.2-15.2) % Lymph % (Auto) (13.4-35.0) % Lymph # (1.2-5.4) K/mm3 Seg Neutrophils % (40.0-70.0) % Seg Neutrophils # (1.8-7.7) K/mm3 PT (12.2-14.9) Sec. Sodium (137-145) mmol/L Creatinine (0.8-1.5) mg/dL Glucose (75-100) mg/dL POC Glucose 225 H 160 H 165 H (70-105) Calcium (8.4-10.2) mg/dL 11/22/18 11/22/18 11/22/18 Range/Units 08:29 09:28 09:28 WBC 13.5 H (4.5-11.0) K/mm3 RBC 2.84 L (3.65-5.03) M/mm3 Hgb 7.9 L (11.8-15.2) gm/dl Hct 25.8 L (35.5-45.6) % MCHC 31 L (32-34) % RDW 19.0 H (13.2-15.2) % Lymph % (Auto) 6.1 L (13.4-35.0) % Lymph # 0.8 L (1.2-5.4) K/mm3 Seg Neutrophils % 86.2 H (40.0-70.0) % Seg Neutrophils # 11.7 H (1.8-7.7) K/mm3 PT 15.0 H (12.2-14.9) Sec. Sodium (137-145) mmol/L Creatinine (0.8-1.5) mg/dL Glucose (75-100) mg/dL POC Glucose 211 H (70-105) Calcium (8.4-10.2) mg/dL 11/22/18 Range/Units 09:28 WBC (4.5-11.0) K/mm3 RBC (3.65-5.03) M/mm3 Hgb (11.8-15.2) gm/dl Hct (35.5-45.6) % MCHC (32-34) % RDW (13.2-15.2) % Lymph % (Auto) (13.4-35.0) % Lymph # (1.2-5.4) K/mm3 Seg Neutrophils % (40.0-70.0) % Seg Neutrophils # (1.8-7.7) K/mm3 PT (12.2-14.9) Sec. Sodium 135 L (137-145) mmol/L Creatinine 0.7 L (0.8-1.5) mg/dL Glucose 209 H (75-100) mg/dL POC Glucose (70-105) Calcium 8.2 L (8.4-10.2) mg/dL
[2018-11-22] MEDS: PROTONIX PO SCH (12:04)
[2018-11-22] MEDS: PLAVIX PO SCH (12:04)
[2018-11-22] MEDS: LASIX PO SCH (12:04)
[2018-11-22] MEDS: CARDIZEM CD PO SCH (12:05)
[2018-11-22] MEDS: HALFPRIN EC PO SCH (12:05)
[2018-11-22] MEDS: SODIUM CHLORIDE FLUSH SYRINGE 10 ML IV SCH ×2 (12:05→23:12)
--- NOTE | 2018-11-22 13:52 | Progress Note ---
Assessment and Plan Assessment and plan: 57-year-old man with a history of hypertension, diabetes, CHF, COPD, hyperlipidemia, A. fib on coumadin comes to the emergency room with complaints of diarrhea that started a day before presentation. He also complained of dark stool, he thinks that it started the day before admission. He feels weak. Patient was just discharged from the hospital on 11/10 GI bleed, melena SIRS, DOUBT SEPSIS Reactive Leukocytosis secondary to severe anemia Acute Blood loss anemia Coumadin toxicity No evidence of overdose. Mild gastritis ILD on revatio Hypertension Diabetes mellitus Lower extremity wound Secondary coagulopathy, INR Paroxysmal Atrial fibrillation Morbid Obesity CHF, Stable Tobacco abuse COPD Hyperlipidemia, A. fib PVD Plan Continue supportive care. Surgery consulted patient had debridement of the right foot and left thigh on 11/21, will re-evaluate tomorrow ID put the patient on IV vancomycin and fortaz day 3 COLONOSCOPY- 6-10 mm polyp x 2 transverse (hot snare) Restarted with his Coumadin, INR is still low, pharmacy consulted for adjustment Interval Lasix s/p PRBC and FFP, H&H stable Internal Hemorrhoids HOLD DIGOXIN AND CARDIZEM DUE TO LOW BP Check fingersticks, initiate insulin sliding-scale hold antihypertensives, blood pressure will not tolerate Continue appropriate outpatient medications Echocardiogram from 08/02/2018 revealed EF of 40-45% with global left ventricular systolic function mildly decreased. Patient had evidence of severe pulmonary hypertension. Patient likely will benefit from SNF WOUND VAC SINCE LAST ADMISSION but was not used properly Patient has poor prognosis and needs SNF or risk loosing more limbs. Not sure he completed his linozilid from last admission History Interval history: Patient was seen and evaluated this morning, no new complaints. Hospitalist Physical - Physical exam Narrative exam: Not in cardiopulmonary distress. The patient appeared well nourished and normally developed. Vital signs as documented. Head exam is unremarkable. No scleral icterus . Neck is without jugular venous distension, thyromegaly, or carotid bruits. Lungs are clear to auscultation. Cardiac exam reveals regular rate and Rhythm. Abdominal exam reveals normal bowel sounds, no masses, no organomegaly and no aortic enlargement. Extremities right foot and left thigh ulcer. 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 No focal weakness. - Constitutional Vitals: Temp Pulse Resp BP Pulse Ox 98.4 F 71 20 103/57 94 11/22/18 11:46 11/22/18 12:05 11/22/18 11:46 11/22/18 12:05 11/22/18 11:46 General appearance: Present: no acute distress Results - Labs CBC & Chem 7: 11/22/18 09:28 11/22/18 09:28 Labs: Laboratory Last Values WBC 13.5 K/mm3 (4.5-11.0) H 11/22/18 09:28 RBC 2.84 M/mm3 (3.65-5.03) L 11/22/18 09:28 Hgb 7.9 gm/dl (11.8-15.2) L 11/22/18 09:28 Hct 25.8 % (35.5-45.6) L 11/22/18 09:28 MCV 91 fl (84-94) 11/22/18 09:28 MCH 28 pg (28-32) 11/22/18 09: MCHC 31 % (32-34) L 11/22/18 09:28 RDW 19.0 % (13.2-15.2) H 11/22/18 09:28 Plt Count 237 K/mm3 (140-440) 11/22/18 09:28 Lymph % (Auto) 6.1 % (13.4-35.0) L 11/22/18 09:28 [place] % (Auto) 6.0 % (0.0-7.3) 11/22/18 09:28 Eos % (Auto) 1.0 % (0.0-4.3) 11/22/18 09:28 Baso % (Auto) 0.7 % (0.0-1.8) 11/22/18 09:28 Lymph # 0.8 K/mm3 (1.2-5.4) L 11/22/18 09:28 [place] # 0.8 K/mm3 (0.0-0.8) 11/22/18 09:28 Eos # 0.1 K/mm3 (0.0-0.4) 11/22/18 09:28 Baso # 0.1 K/mm3 (0.0-0.1) 11/22/18 09:28 Add Manual Diff Complete 11/16/18 17:15 Total Counted 100 11/16/18 17:15 Seg Neutrophils % 86.2 % (40.0-70.0) H 11/22/18 09:28 Seg Neuts % (Manual) 93.0 % (40.0-70.0) H 11/16/18 17:15 Band Neutrophils % 0 % 11/16/18 17:15 Lymphocytes % (Manual) 3.0 % (13.4-35.0) L 11/16/18 17:15 Reactive Lymphs % (Man) 0 % 11/16/18 17:15 Monocytes % (Manual) 4.0 % (0.0-7.3) 11/16/18 17:15 Eosinophils % (Manual) 0 % (0.0-4.3) 11/16/18 17:15 Basophils % (Manual) 0 % (0.0-1.8) 11/16/18 17:15 Metamyelocytes % 0 % 11/16/18 17:15 Myelocytes % 0 % 11/16/18 17:15 Promyelocytes % 0 % 11/16/18 17:15 Blast Cells % 0 % 11/16/18 17:15 Nucleated RBC % Not Reportable 11/16/18 17:15 Seg Neutrophils # 11.7 K/mm3 (1.8-7.7) H 11/22/18 09:28 Seg Neutrophils # Man 16.6 K/mm3 (1.8-7.7) H 11/16/18 17:15 Band Neutrophils # 0.0 K/mm3 11/16/18 17:15 Lymphocytes # (Manual) 0.5 K/mm3 (1.2-5.4) L 11/16/18 17:15 Abs React Lymphs (Man) 0.0 K/mm3 11/16/18 17:15 Monocytes # (Manual) 0.7 K/mm3 (0.0-0.8) 11/16/18 17:15 Eosinophils # (Manual) 0.0 K/mm3 (0.0-0.4) 11/16/18 17:15 Basophils # (Manual) 0.0 K/mm3 (0.0-0.1) 11/16/18 17:15 Metamyelocytes # 0.0 K/mm3 11/16/18 17:15 Myelocytes # 0.0 K/mm3 11/16/18 17:15 Promyelocytes # 0.0 K/mm3 11/16/18 17:15 Blast Cells # 0.0 K/mm3 11/16/18 17:15 WBC Morphology Not Reportable 11/16/18 17:15 Hypersegmented Neuts Not Reportable 11/16/18 17:15 Hyposegmented Neuts Not Reportable 11/16/18 17:15 Hypogranular Neuts Not Reportable 11/16/18 17:15 Smudge Cells Not Reportable 11/16/18 17:15 Toxic Granulation Not Reportable 11/16/18 17:15 Toxic Vacuolation Not Reportable 11/16/18 17:15 Dohle Bodies Not Reportable 11/16/18 17:15 Pelger-Huet Anomaly Not Reportable 11/16/18 17:15 Amanda Rods Not Reportable 11/16/18 17:15 Platelet Estimate Appears normal 11/16/18 17:15 Clumped Platelets Not Reportable 11/16/18 17:15 Plt Clumps, EDTA Not Reportable 11/16/18 17:15 Large Platelets Not Reportable 11/16/18 17:15 Giant Platelets Not Reportable 11/16/18 17:15 Platelet Satelliting Not Reportable 11/16/18 17:15 Plt Morphology Comment Not Reportable 11/16/18 17:15 RBC Morphology Not Reportable 11/16/18 17:15 Dimorphic RBCs Not Reportable 11/16/18 17:15 Polychromasia Not Reportable 11/16/18 17:15 Hypochromasia Not Reportable 11/16/18 17:15 Poikilocytosis Not Reportable 11/16/18 17:15 Anisocytosis 1+ 11/16/18 17:15 Microcytosis Not Reportable 11/16/18 17:15 Macrocytosis Not Reportable 11/16/18 17:15 Spherocytes Not Reportable 11/16/18 17:15 Pappenheimer Bodies Not Reportable 11/16/18 17:15 Sickle Cells Not Reportable 11/16/18 17:15 Target Cells Not Reportable 11/16/18 17:15 Tear Drop Cells Not Reportable 11/16/18 17:15 Ovalocytes Few 11/16/18 17:15 Helmet Cells Not Reportable 11/16/18 17:15 [place] Bodies Not Reportable 11/16/18 17:15 [place] Rings Not Reportable 11/16/18 17:15 Krissy Cells Not Reportable 11/16/18 17:15 Bite Cells Not Reportable 11/16/18 17:15 Crenated Cell Not Reportable 11/16/18 17:15 Elliptocytes Not Reportable 11/16/18 17:15 Acanthocytes (Spur) Not Reportable 11/16/18 17:15 Rouleaux Not Reportable 11/16/18 17:15 Hemoglobin C Crystals Not Reportable 11/16/18 17:15 Schistocytes Not Reportable 11/16/18 17:15 Malaria parasites Not Reportable 11/16/18 17:15 Elias Bodies Not Reportable 11/16/18 17:15 Hem Pathologist Commnt No 11/16/18 17:15 PT 15.0 Sec. (12.2-14.9) H 11/22/18 09:28 INR 1.11 (0.87-1.13) 11/22/18 09:28 APTT 43.5 Sec. (24.2-36.6) H 11/16/18 17:15 Sodium 135 mmol/L (137-145) L 11/22/18 09:28 Potassium 4.0 mmol/L (3.6-5.0) 11/22/18 09:28 Chloride 102.2 mmol/L (98-107) 11/22/18 09:28 Carbon Dioxide 24 mmol/L (22-30) 11/22/18 09:28 Anion Gap 13 mmol/L 11/22/18 09:28 BUN 11 mg/dL (9-20) 11/22/18 09:28 Creatinine 0.7 mg/dL (0.8-1.5) L 11/22/18 09:28 Estimated GFR > 60 ml/min 11/22/18 09:28 BUN/Creatinine Ratio 16 % 11/22/18 09:28 Glucose 209 mg/dL (75-100) H 11/22/18 09:28 POC Glucose 298 (70-105) H 11/22/18 11:52 Calcium 8.2 mg/dL (8.4-10.2) L 11/22/18 09:28 Total Bilirubin 0.50 mg/dL (0.1-1.2) 11/16/18 17:15 AST 23 units/L (5-40) 11/16/18 17:15 ALT 44 units/L (7-56) 11/16/18 17:15 Alkaline Phosphatase 77 units/L (35-129) 11/16/18 17:15 C-Reactive Protein 5.40 mg/dL (0.00-1.30) H 11/20/18 16:44 Total Protein 4.7 g/dL (6.3-8.2) L 11/16/18 17:15 Albumin 2.7 g/dL (3.9-5) L 11/16/18 17:15 Albumin/Globulin Ratio 1.4 % 11/16/18 17:15 Blood Type A POSITIVE 11/16/18 17:15 Antibody Screen Negative 11/16/18 17:15 Crossmatch See Detail 11/16/18 17:15 Active Medications - Current Medications Current Medications: Generic Name Dose Route Start Last Admin Trade Name Freq PRN Reason Stop Dose Admin Acetaminophen 650 mg 11/16/18 23:29 11/17/18 15:31 Tylenol PO 650 mg Q4H PRN Administration Pain MILD(1-3)/Fever >100.5/MORROW Acetaminophen/Hydrocodone Bitart 2 each 11/20/18 11:24 11/20/18 22:43 [place] 5/325 PO 2 each Q6H PRN Administration Pain, Moderate (4-6) Albuterol 2.5 mg 11/20/18 11:27 Proventil IH Q4H PRN Wheezing Alprazolam 0.5 mg 11/20/18 11:27 Xanax PO TID PRN Anxiety Arformoterol Tartrate 15 mcg 11/20/18 20:00 11/22/18 08:28 Brovana Nebu IH 15 mcg Q12HRT RAJAT Administration Aspirin 81 mg 11/21/18 10:00 11/22/18 12:05 Halfprin Ec PO 81 mg QDAY RAJAT Administration Atorvastatin Calcium 40 mg 11/20/18 22:00 11/21/18 22:37 Lipitor PO 40 mg QHS RAJAT Administration Budesonide 0.5 mg 11/20/18 20:00 11/22/18 08:28 Pulmicort IH 0.5 mg Q12HRT RAJAT Administration Clopidogrel Bisulfate 75 mg 11/21/18 10:00 11/22/18 12:04 Plavix PO 75 mg QDAY RAJAT Administration Dextrose 50 ml 11/16/18 23:31 D50w (25gm) Syringe IV PRN PRN Hypoglycemia Digoxin 0.25 mg 11/20/18 17:00 11/21/18 18:27 Lanoxin PO 0.25 mg DAILY@1700 RAJAT Administration Diltiazem HCl 120 mg 11/20/18 14:00 11/22/18 12:05 Cardizem Cd PO 120 mg QDAY RAJAT Administration Furosemide 40 mg 11/21/18 10:00 11/22/18 12:04 Lasix PO 40 mg QDAY RAJAT Administration Gabapentin 800 mg 11/20/18 14:00 11/22/18 10:04 Neurontin PO 800 mg TID RAJAT Administration Hydromorphone HCl 0.5 mg 11/20/18 11:33 11/22/18 12:38 Dilaudid IV 0.5 mg Q3H PRN Administration Pain , Severe (7-10) Cefepime HCl 2 gm in 100 mls @ 200 mls/hr 11/20/18 17:00 11/22/18 05:39 Maxipime/Ns 2 Gm/100 Ml IV 200 mls/hr Q8HR RAJAT Administration Protocol Vancomycin HCl 1,500 mg/ 530 mls @ 333.333 mls/hr 11/21/18 08:00 11/22/18 10:05 Sodium Chloride IV 333.333 mls/hr Q12H RAJAT Administration Insulin Human Lispro 0 unit 11/18/18 17:45 11/22/18 12:30 Humalog SUB-Q 4 unit ACHS RAJAT Administration Protocol Ondansetron HCl 4 mg 11/16/18 23:29 Zofran IV Q8H PRN Nausea And Vomiting Pantoprazole Sodium 40 mg 11/21/18 10:00 11/22/18 12:04 Protonix PO 40 mg QDAY RAJAT Administration Sodium Chloride 10 ml 11/17/18 10:00 11/22/18 12:05 Sodium Chloride Flush Syringe 10 Ml IV 10 ml BID RAJAT Administration Sodium Chloride 10 ml 11/16/18 23:29 Sodium Chloride Flush Syringe 10 Ml IV PRN PRN LINE FLUSH Sodium Hypochlorite 1 applic 11/21/18 16:00 11/21/18 19:40 Dakin's Half Strength TP 1 ml DAILY RAJAT Administration Tiotropium [place] 1 puff 11/21/18 09:00 11/22/18 08:46 Spiriva IH 1 puff Q24HRT RAJAT Administration Warfarin Sodium 5 mg 11/21/18 17:00 11/21/18 18:30 Coumadin PO 5 mg DAILY@1700 RAJAT Administration Nutrition/Malnutrition Assess - Dietary Evaluation Nutrition/Malnutrition Findings: Nutrition Notes Start: 11/21/18 13:31 Freq: Status: Active Protocol: Document 11/21/18 13:31 RM (Rec: 11/21/18 13:57 RM [id number]) Nutrition Notes Need for Assessment generated from: MD Order Initial or Follow up Assessment Current Diagnosis COPD,Hypertension,Heart Failure,Hyperlipidemia Other Pertinent Diagnosis R foot diabetic ulcer, L thigh wound, GI bleed, PVD, Coumadin toxicity Current Diet Cardiac/Consistent CHO, GI soft w/Glucerna BID Labs/Tests Reviewed Pertinent Medications Lasix Height 5 ft 7 in Weight 114.2 kg Usual Body Weight 109.09 kg [place] Body Weight (kg) 67.27 BMI 39.4 Subjective/Other Information Consulted for malnutrition and screened for Coumadin/Vit K diet education. 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 Stated he eats 50% of his meals here. Stated UBW is 240 lbs but unsure of how long ago he saw he weighed that. Pt was already familiar with Coumadin/Vit K diet. No physical signs of malnutrition. Percent of energy/protein needs met: 80%/56% Burn Absent Trauma Absent #1 Nutrition Diagnosis Inadequate protein intake Etiology wound healing As Evidenced by Signs and Symptoms pt meeting 56% of protein needs Is patient on ventilator? No Is Patient Ambulatory and/or Out of Bed No REE-([facility]-confined to bed) 2297.136 Kcal/Kg value to use for calculation 16 Approximate Energy Requirements Using 1827 kcal/Kg Calculation Used for Recommendations Kcal/kg Additional Notes Protein Needs: 109-137g (1.2-1 .5g/kg 91kg adjBW) Fluid Needs: 1 ml/kcal Nutrition Intervention Change Diet Order: Continue current Add Supplement/Snack (indicate name/kcal Glucerna Vanilla TID /protein ) Provides kCal: 660 Provides Protein (gm) 30 Goal #1 Meet at least 75% of calorie and protein needs via PO and ONS intakes Anticipated Discharge Needs: Cardiac/Consistent CHO Follow-Up By: 11/24/18 Additional Comments Follow for PO and ONS intakes
[2018-11-22] MEDS: DAKIN'S HALF STRENGTH TP SCH (16:08)
[2018-11-22] MEDS: LANOXIN PO SCH (18:05)
[2018-11-22] MEDS: COUMADIN PO SCH (18:05)
--- NOTE | 2018-11-22 18:24 | Cat Scan Report ---
PROCEDURE: CT LOWER EXTREMITY LT W CON TECHNIQUE: Computerized axial tomography of the bilateral lower extremities was performed after the intravenous administration of iodinated noninonic contrast material. CT DOSE LENGTH PRODUCT: 1742.5 mGycm HISTORY: left leg copious purulence evaluate for abscess COMPARISONS: None . FINDINGS: There is a skin defect in the medial soft tissues of the distal left thigh. There is underlying subcu taneous edema. No organized fluid collection is seen. There is circumferential subcutaneous edema see n bilaterally. There is bilateral muscle atrophy. No fracture is seen. No cortical erosion is seen. This is not a dedicated arteriogram, however the right superficial femoral artery is occluded. There is reconstitution of the right popliteal artery and trifurcation vessels. There is a left superficial femoral arterial stent, however which appears occluded throughout its cou rse. There is reconstitution of the popliteal artery. The proximal posterior tibial, anterior tibial, and peroneal arteries appear occluded, however with reconstitution just distal to their origin. The distal anterior tibial artery however appears occluded. IMPRESSION: There is skin defect in the medial soft tissues of the distal left thigh. No organized abscess is see n. There is circumferential subcutaneous edema bilaterally. Peripheral arterial disease bilaterally. This document is electronically signed by Phylicia Paredes MD., November 22 2018 06:22:03 PM ET
[2018-11-23] MEDS: MAXIPIME/NS 2 GM/100 ML 2 GM/100 ML BAG IV SCH ×3 (05:26→22:34)
[2018-11-23 06:05] LABS: Basophils # (Auto) 0.1 K/mm3 (0.0-0.1); Basophils % (Auto) 0.8 % (0.0-1.8); Eosinophils # (Auto) 0.2 K/mm3 (0.0-0.4); Eosinophils % (Auto) 1.6 % (0.0-4.3); Hematocrit 26.4 % (35.5-45.6); Hemoglobin 8.2 gm/dl (11.8-15.2); Lymphocytes % (Auto) 9.7 % (13.4-35.0); Mean Corpuscular HGB Conc 31 % (32-34); Mean Corpuscular Volume 89 fl (84-94); Monocytes # (Auto) 0.7 K/mm3 (0.0-0.8); Monocytes % (Auto) 6.6 % (0.0-7.3); Platelet Count 240 K/mm3 (140-440); Red Blood Count 2.96 M/mm3 (3.65-5.03); Red Cell Distribution Width 18.7 % (13.2-15.2)
[2018-11-23] MEDS: DILAUDID IV PRN ×4 (06:15→22:36)
[2018-11-23 06:16] LABS: INR 1.17 (0.87-1.13)
[2018-11-23 06:31] LABS: BUN/Creatinine Ratio 14; Blood Urea Nitrogen 11 mg/dL (9-20); Calcium 8.3 mg/dL (8.4-10.2); Hemolysis Index 7
[2018-11-23] MEDS: BROVANA NEBU IH SCH ×2 (07:58→20:02)
[2018-11-23] MEDS: PULMICORT IH SCH ×2 (07:58→20:02)
[2018-11-23] MEDS: SPIRIVA IH SCH (08:05)
[2018-11-23] MEDS: PLAVIX PO SCH (09:49)
[2018-11-23] MEDS: CARDIZEM CD PO SCH (09:49)
[2018-11-23] MEDS: NORCO 5/325 PO PRN (09:50)
[2018-11-23] MEDS: PROTONIX PO SCH (09:51)
[2018-11-23] MEDS: HALFPRIN EC PO SCH (09:51)
[2018-11-23] MEDS: LASIX PO SCH (09:51)
[2018-11-23] MEDS: NEURONTIN PO SCH ×3 (09:51→22:32)
--- NOTE | 2018-11-23 09:51 | Progress Note ---
Assessment and Plan Cultures: none Assessment: 58 y/o male with diabetes, hypertension, history of left leg DVT, arthritis, COPD, pulmonary hypertension, active tobacco use, peripheral arterial disease, Afib on coumadin, status post left foot transmetatarsal amputation; admitted on 11/16/2018 due to bloody stools for 24 hour. patient is unable to provide history as he is not the best historian. 1) SIRS v/s sepsis:Resolved. no fever. no leukocytosis. -CRP 5.40 2) Chronic legs wounds with cellulitis: left thigh inner wound [id number] with copious sero-purulent wound drainage, with moderate odor noted. Right foot dorsum wound 4.5x6.5 cm no depth covered with slough. Minimal serosanguinous drainage and odor noted. Patient seen during recent admission for left thigh worsening wounds on his lower extremities. Arterial duplex and CTA with runoff showed extensive bilateral lower extremity peripheral vascular disease. Patient was seen by vascular surgery, on 11/06/2018, patient underwent left lower extremity angioplasty. On 11/07/2018, patient underwent bedside excisional debridement of left thigh wound, right foot wound and healed wound by general surgery. Cultures from debridement grew MRSA and Acinetobacter. Acinetobacter felt to be most likely a colonizer. He was treated with IV vancomycin while inpatient. Attempted to approve IV Dalvance not approved, patient was discharged on PO Linezolid 600 mg BID x 14 days- approved by case management. He also had a wound vac placed to the left thigh and home health care set up. He states the wound vac came off at home and it is unclear if home health care came. The rianna ent lives in a home with his landlord and landlord's . He denies f/c. He has not followed up as outpatient in wound care clinic. He does not know if he finished the full course of PO linezolid. S/p excisional debridement of left thigh and right foot wounds 11/21/18. Left thigh wound with increased copious purulent drainage. CT shows no organized abscess. There is circumferential subcutaneous edema bilaterally. 3) Severe PVD 4) GI bleed and coumadin toxicity 5) Severe anemia 6) Malnutrition: albumin 2.7 Recommendations: - contact isolation needs to continue - f/u vascular consult - plan for revascularization of RLE as outpatient -continue vancomycin and cefepime D4 -anticipate discharge on Cefepime 2gms IV every 12 hours and Vancomycin 1,500mg IV every 12 hours for total 2 weeks ending 12/04/18 -order placed with case management -f/u ID clinic in 2 weeks -Midline order placed [facility] M: [id number] O:[phone] Subjective Date of service: 11/23/18 Principal diagnosis: GI bleed Interval history: Patient seen and examined. Left thigh pain improved.. + wound vac. No fevers. Objective - Exam Narrative Exam: General appearance: Alert in NAD, debilitated Eyes: anicteric sclerae, moist conjunctivae; no lid-lag; PERRLA HENT: Atraumatic; oropharynx limited. Neck: Trachea midline; supple, no thyromegaly or lymphadenopathy Lungs: CTA CV: RRR Abdomen: Soft, obese non tender Extremities: left TMA stump ok,s/p left thigh wound debridementt. +wound vac. Right foot dorsum wound with dressing, no drainage. Skin: as above Psych: Appropriate affect, alert and oriented to person, place and time. Neuro: alert and oriented x 3. Moving all extermities - Constitutional Vitals: Vital Signs Temp Pulse Resp BP Pulse Ox 97.6 F 67 18 107/58 93 11/23/18 05:51 11/23/18 08:13 11/23/18 08:06 11/23/18 05:51 11/23/18 09:00 Temperature -Last 24 Hours Temperature 97.6 F Temperature 97.5 F Temperature 97.5 F Temperature 98.4 F - Labs CBC & Chem 7: 11/23/18 05:43 11/23/18 05:43 Labs: Abnormal lab results 11/22/18 11/22/18 11/22/18 Range/Units 09:28 09:28 09:28 WBC 13.5 H (4.5-11.0) K/mm3 RBC 2.84 L (3.65-5.03) M/mm3 Hgb 7.9 L (11.8-15.2) gm/dl Hct 25.8 L (35.5-45.6) % MCHC 31 L (32-34) % RDW 19.0 H (13.2-15.2) % Lymph % (Auto) 6.1 L (13.4-35.0) % Lymph # 0.8 L (1.2-5.4) K/mm3 Seg Neutrophils % 86.2 H (40.0-70.0) % Seg Neutrophils # 11.7 H (1.8-7.7) K/mm3 PT 15.0 H (12.2-14.9) Sec. INR (0.87-1.13) Sodium 135 L (137-145) mmol/L Creatinine 0.7 L (0.8-1.5) mg/dL Glucose 209 H (75-100) mg/dL POC Glucose (70-105) Calcium 8.2 L (8.4-10.2) mg/dL 11/22/18 11/22/18 11/22/18 Range/Units 11:52 15:52 22:10 WBC (4.5-11.0) K/mm3 RBC (3.65-5.03) M/mm3 Hgb (11.8-15.2) gm/dl Hct (35.5-45.6) % MCHC (32-34) % RDW (13.2-15.2) % Lymph % (Auto) (13.4-35.0) % Lymph # (1.2-5.4) K/mm3 Seg Neutrophils % (40.0-70.0) % Seg Neutrophils # (1.8-7.7) K/mm3 PT (12.2-14.9) Sec. INR (0.87-1.13) Sodium (137-145) mmol/L Creatinine (0.8-1.5) mg/dL Glucose (75-100) mg/dL POC Glucose 298 H 226 H 250 H (70-105) Calcium (8.4-10.2) mg/dL 11/23/18 11/23/18 11/23/18 Range/Units 05:43 05:43 05:43 WBC (4.5-11.0) K/mm3 RBC 2.96 L (3.65-5.03) M/mm3 Hgb 8.2 L (11.8-15.2) gm/dl Hct 26.4 L (35.5-45.6) % MCHC 31 L (32-34) % RDW 18.7 H (13.2-15.2) % Lymph % (Auto) 9.7 L (13.4-35.0) % Lymph # 1.0 L (1.2-5.4) K/mm3 Seg Neutrophils % 81.3 H (40.0-70.0) % Seg Neutrophils # 8.8 H (1.8-7.7) K/mm3 PT 15.7 H (12.2-14.9) Sec. INR 1.17 H (0.87-1.13) Sodium (137-145) mmol/L Creatinine (0.8-1.5) mg/dL Glucose 166 H (75-100) mg/dL POC Glucose (70-105) Calcium 8.3 L (8.4-10.2) mg/dL 11/23/18 Range/Units 07:55 WBC (4.5-11.0) K/mm3 RBC (3.65-5.03) M/mm3 Hgb (11.8-15.2) gm/dl Hct (35.5-45.6) % MCHC (32-34) % RDW (13.2-15.2) % Lymph % (Auto) (13.4-35.0) % Lymph # (1.2-5.4) K/mm3 Seg Neutrophils % (40.0-70.0) % Seg Neutrophils # (1.8-7.7) K/mm3 PT (12.2-14.9) Sec. INR (0.87-1.13) Sodium (137-145) mmol/L Creatinine (0.8-1.5) mg/dL Glucose (75-100) mg/dL POC Glucose 165 H (70-105) Calcium (8.4-10.2) mg/dL
[2018-11-23] MEDS: VANCOMYCIN 1,500 MG in NACL 0.9% 500 ML 500 ML IV SCH ×2 (09:52→22:48)
[2018-11-23] MEDS: HumaLOG SUB-Q SCH ×4 (09:55→23:08)
--- NOTE | 2018-11-23 10:47 | Progress Note ---
Assessment and Plan 57 yo M with 1. L thigh wound and R foot wounds s/p bedside debridement 2. MRSA of L thigh wound 3. poorly controlled DM 4. severe PAD Plan; 1. abx per ID 2. patient contact precautions 3. Hydrogel to right foot wound - Medihoney upon dc. Wound vac may be applied upon arrival to SNF 4. vascular on board - plan for revascularization of RLE as outpatient 5. strict glucose control 6. prn pain control 7. optimize nutrition OK to DC from surgical standpoint. The patient has a high likelihood of failure to heal wounds due to multiple comorbid conditions. He needs to follow up weekly at the wound care center as an outpatient for aggressive wound care. Thank you, please call with questions. Subjective Date of service: 11/23/18 Narrative: Pt seen and examined. No complaints. Pain is controlled. Objective Vital Signs - 12hr 11/23/18 11/23/18 11/23/18 00:12 05:51 08:06 Temperature 97.5 F L 97.6 F Pulse Rate 62 40 L Pulse Rate [ 70 Anterior Bilateral Throughout] Respiratory 18 18 Rate Respiratory 18 Rate [Anterior Bilateral Throughout] Blood Pressure 108/59 107/58 O2 Sat by Pulse 96 92 Oximetry 11/23/18 11/23/18 08:13 09:00 Temperature Pulse Rate 67 Pulse Rate [ Anterior Bilateral Throughout] Respiratory Rate Respiratory Rate [Anterior Bilateral Throughout] Blood Pressure O2 Sat by Pulse 93 Oximetry - General physical appearance Narrative Exam: Gen; AAOx3. NAD CV: S1, S2+ Resp: even and unlabored Ext; L thigh wound with minimal seropurulent exudate - wiped clean with gauze. Undermining of wound circumfrentially with 6-7 cm of tunnelling in the 1-2 oclock direction. Wound base is clean. No odor. R foot wound with slough on surface, no drainage. - Labs 11/23/18 05:43 11/23/18 05:43 Diabetes panel 11/22/18 11/23/18 Range/Units 09:28 05:43 Sodium 135 L 137 (137-145) mmol/L Potassium 4.0 4.0 (3.6-5.0) mmol/L Chloride 102.2 100.3 (98-107) mmol/L Carbon Dioxide 24 22 (22-30) mmol/L BUN 11 11 (9-20) mg/dL Creatinine 0.7 L 0.8 (0.8-1.5) mg/dL Glucose 209 H 166 H (75-100) mg/dL Calcium 8.2 L 8.3 L (8.4-10.2) mg/dL Calcium panel 11/22/18 11/23/18 Range/Units 09:28 05:43 Calcium 8.2 L 8.3 L (8.4-10.2) mg/dL Pituitary panel 11/22/18 11/23/18 Range/Units 09:28 05:43 Sodium 135 L 137 (137-145) mmol/L Potassium 4.0 4.0 (3.6-5.0) mmol/L Chloride 102.2 100.3 (98-107) mmol/L Carbon Dioxide 24 22 (22-30) mmol/L BUN 11 11 (9-20) mg/dL Creatinine 0.7 L 0.8 (0.8-1.5) mg/dL Glucose 209 H 166 H (75-100) mg/dL Calcium 8.2 L 8.3 L (8.4-10.2) mg/dL Adrenal panel 11/22/18 11/23/18 Range/Units 09:28 05:43 Sodium 135 L 137 (137-145) mmol/L Potassium 4.0 4.0 (3.6-5.0) mmol/L Chloride 102.2 100.3 (98-107) mmol/L Carbon Dioxide 24 22 (22-30) mmol/L BUN 11 11 (9-20) mg/dL Creatinine 0.7 L 0.8 (0.8-1.5) mg/dL Glucose 209 H 166 H (75-100) mg/dL Calcium 8.2 L 8.3 L (8.4-10.2) mg/dL
[2018-11-23] MEDS ORDERED: LANTUS SUB-Q ONE (12:23)
--- NOTE | 2018-11-23 13:41 | Progress Note ---
Assessment and Plan Assessment and plan: 57-year-old man with a history of hypertension, diabetes, CHF, COPD, hyperlipidemia, A. fib on coumadin comes to the emergency room with complaints of diarrhea that started a day before presentation. He also complained of dark stool, he thinks that it started the day before admission. He feels weak. Patient was just discharged from the hospital on 11/10 GI bleed, melena SIRS, DOUBT SEPSIS Reactive Leukocytosis secondary to severe anemia Acute Blood loss anemia Coumadin toxicity No evidence of overdose. Mild gastritis ILD on revatio Hypertension Diabetes mellitus Lower extremity wound Secondary coagulopathy, INR Paroxysmal Atrial fibrillation Morbid Obesity CHF, Stable Tobacco abuse COPD Hyperlipidemia, A. fib PVD Plan Continue supportive care. Surgery consulted patient had debridement of the right foot and left thigh on 11/21, will re-evaluate tomorrow ID put the patient on IV vancomycin and fortaz day 3 COLONOSCOPY- 6-10 mm polyp x 2 transverse (hot snare) Restarted with his Coumadin, INR is still low, pharmacy consulted for adjustment Interval Lasix s/p PRBC and FFP, H&H stable Internal Hemorrhoids HOLD DIGOXIN AND CARDIZEM DUE TO LOW BP Check fingersticks, initiate insulin sliding-scale hold antihypertensives, blood pressure will not tolerate Continue appropriate outpatient medications Echocardiogram from 08/02/2018 revealed EF of 40-45% with global left ventricular systolic function mildly decreased. Patient had evidence of severe pulmonary hypertension. Patient likely will benefit from SNF WOUND VAC SINCE LAST ADMISSION but was not used properly Patient has poor prognosis and needs SNF or risk loosing more limbs. Not sure he completed his linozilid from last admission CT of the leg was done and showed swelling but no abscess collection. Disposition; ID recommendation for antibiotic choice and discharge to SNF. History Interval history: Patient was seen and evaluated this morning, no new complaints. Hospitalist Physical - Physical exam Narrative exam: Not in cardiopulmonary distress. The patient appeared well nourished and normally developed. Vital signs as documented. Head exam is unremarkable. No scleral icterus . Neck is without jugular venous distension, thyromegaly, or carotid bruits. Lungs are clear to auscultation. Cardiac exam reveals regular rate and Rhythm. Abdominal exam reveals normal bowel sounds, no masses, no organomegaly and no aortic enlargement. Extremities right foot and left thigh ulcer. AGED OR DISABLED CARER: Alert and oriented 3. No focal weakness. - Constitutional Vitals: Temp Pulse Resp BP Pulse Ox 98.0 F 74 16 104/60 90 11/23/18 12:18 11/23/18 12:18 11/23/18 12:18 11/23/18 12:18 11/23/18 12:20 General appearance: Present: no acute distress Results - Labs CBC & Chem 7: 11/23/18 05:43 11/23/18 05:43 Labs: Laboratory Last Values WBC 10.8 K/mm3 (4.5-11.0) 11/23/18 05:43 RBC 2.96 M/mm3 (3.65-5.03) L 11/23/18 05:43 Hgb 8.2 gm/dl (11.8-15.2) L 11/23/18 05:43 Hct 26.4 % (35.5-45.6) L 11/23/18 05:43 MCV 89 fl (84-94) 11/23/18 05:43 MCH 28 pg (28-32) 11/23/18 05:43 MCHC 31 % (32-34) L 11/23/18 05:43 RDW 18.7 % (13.2-15.2) H 11/23/18 05:43 Plt Count 240 K/mm3 (140-440) 11/23/18 05:43 Lymph % (Auto) 9.7 % (13.4-35.0) L 11/23/18 05:43 [place] % (Auto) 6.6 % (0.0-7.3) 11/23/18 05:43 Eos % (Auto) 1.6 % (0.0-4.3) 11/23/18 05:43 Baso % (Auto) 0.8 % (0.0-1.8) 11/23/18 05:43 Lymph # 1.0 K/mm3 (1.2-5.4) L 11/23/18 05:43 [place] # 0.7 K/mm3 (0.0-0.8) 11/23/18 05:43 Eos # 0.2 K/mm3 (0.0-0.4) 11/23/18 05:43 Baso # 0.1 K/mm3 (0.0-0.1) 11/23/18 05:43 Add Manual Diff Complete 11/16/18 17:15 Total Counted 100 11/16/18 17:15 Seg Neutrophils % 81.3 % (40.0-70.0) H 11/23/18 05:43 Seg Neuts % (Manual) 93.0 % (40.0-70.0) H 11/16/18 17:15 Band Neutrophils % 0 % 11/16/18 17:15 Lymphocytes % (Manual) 3.0 % (13.4-35.0) L 11/16/18 17:15 Reactive Lymphs % (Man) 0 % 11/16/18 17:15 Monocytes % (Manual) 4.0 % (0.0-7.3) 11/16/18 17:15 Eosinophils % (Manual) 0 % (0.0-4.3) 11/16/18 17:15 Basophils % (Manual) 0 % (0.0-1.8) 11/16/18 17:15 Metamyelocytes % 0 % 11/16/18 17:15 Myelocytes % 0 % 11/16/18 17:15 Promyelocytes % 0 % 11/16/18 17:15 Blast Cells % 0 % 11/16/18 17:15 Nucleated RBC % Not Reportable 11/16/18 17:15 Seg Neutrophils # 8.8 K/mm3 (1.8-7.7) H 11/23/18 05:43 Seg Neutrophils # Man 16.6 K/mm3 (1.8-7.7) H 11/16/18 17:15 Band Neutrophils # 0.0 K/mm3 11/16/18 17:15 Lymphocytes # (Manual) 0.5 K/mm3 (1.2-5.4) L 11/16/18 17:15 Abs React Lymphs (Man) 0.0 K/mm3 11/16/18 17:15 Monocytes # (Manual) 0.7 K/mm3 (0.0-0.8) 11/16/18 17:15 Eosinophils # (Manual) 0.0 K/mm3 (0.0-0.4) 11/16/18 17:15 Basophils # (Manual) 0.0 K/mm3 (0.0-0.1) 11/16/18 17:15 Metamyelocytes # 0.0 K/mm3 11/16/18 17:15 Myelocytes # 0.0 K/mm3 11/16/18 17:15 Promyelocytes # 0.0 K/mm3 11/16/18 17:15 Blast Cells # 0.0 K/mm3 11/16/18 17:15 WBC Morphology Not Reportable 11/16/18 17:15 Hypersegmented Neuts Not Reportable 11/16/18 17:15 Hyposegmented Neuts Not Reportable 11/16/18 17:15 Hypogranular Neuts Not Reportable 11/16/18 17:15 Smudge Cells Not Reportable 11/16/18 17:15 Toxic Granulation Not Reportable 11/16/18 17:15 Toxic Vacuolation Not Reportable 11/16/18 17:15 Dohle Bodies Not Reportable 11/16/18 17:15 Pelger-Huet Anomaly Not Reportable 11/16/18 17:15 Amanda Rods Not Reportable 11/16/18 17:15 Platelet Estimate Appears normal 11/16/18 17:15 Clumped Platelets Not Reportable 11/16/18 17:15 Plt Clumps, EDTA Not Reportable 11/16/18 17:15 Large Platelets Not Reportable 11/16/18 17:15 Giant Platelets Not Reportable 11/16/18 17:15 Platelet Satelliting Not Reportable 11/16/18 17:15 Plt Morphology Comment Not Reportable 11/16/18 17:15 RBC Morphology Not Reportable 11/16/18 17:15 Dimorphic RBCs Not Reportable 11/16/18 17:15 Polychromasia Not Reportable 11/16/18 17:15 Hypochromasia Not Reportable 11/16/18 17:15 Poikilocytosis Not Reportable 11/16/18 17:15 Anisocytosis 1+ 11/16/18 17:15 Microcytosis Not Reportable 11/16/18 17:15 Macrocytosis Not Reportable 11/16/18 17:15 Spherocytes Not Reportable 11/16/18 17:15 Pappenheimer Bodies Not Reportable 11/16/18 17:15 Sickle Cells Not Reportable 11/16/18 17:15 Target Cells Not Reportable 11/16/18 17:15 Tear Drop Cells Not Reportable 11/16/18 17:15 Ovalocytes Few 11/16/18 17:15 Helmet Cells Not Reportable 11/16/18 17:15 [place] Bodies Not Reportable 11/16/18 17:15 [place] Rings Not Reportable 11/16/18 17:15 Krissy Cells Not Reportable 11/16/18 17:15 Bite Cells Not Reportable 11/16/18 17:15 Crenated Cell Not Reportable 11/16/18 17:15 Elliptocytes Not Reportable 11/16/18 17:15 Acanthocytes (Spur) Not Reportable 11/16/18 17:15 Rouleaux Not Reportable 11/16/18 17:15 Hemoglobin C Crystals Not Reportable 11/16/18 17:15 Schistocytes Not Reportable 11/16/18 17:15 Malaria parasites Not Reportable 11/16/18 17:15 Elias Bodies Not Reportable 11/16/18 17:15 Hem Pathologist Commnt No 11/16/18 17:15 PT 15.7 Sec. (12.2-14.9) H 11/23/18 05:43 INR 1.17 (0.87-1.13) H 11/23/18 05:43 APTT 43.5 Sec. (24.2-36.6) H 11/16/18 17:15 Sodium 137 mmol/L (137-145) 11/23/18 05:43 Potassium 4.0 mmol/L (3.6-5.0) 11/23/18 05:43 Chloride 100.3 mmol/L (98-107) 11/23/18 05:43 Carbon Dioxide 22 mmol/L (22-30) 11/23/18 05:43 Anion Gap 19 mmol/L 11/23/18 05:43 BUN 11 mg/dL (9-20) 11/23/18 05:43 Creatinine 0.8 mg/dL (0.8-1.5) 11/23/18 05:43 Estimated GFR > 60 ml/min 11/23/18 05:43 BUN/Creatinine Ratio 14 % 11/23/18 05:43 Glucose 166 mg/dL (75-100) H 11/23/18 05:43 POC Glucose 302 (70-105) H 11/23/18 11:39 Calcium 8.3 mg/dL (8.4-10.2) L 11/23/18 05:43 Total Bilirubin 0.50 mg/dL (0.1-1.2) 11/16/18 17:15 AST 23 units/L (5-40) 11/16/18 17:15 ALT 44 units/L (7-56) 11/16/18 17:15 Alkaline Phosphatase 77 units/L (35-129) 11/16/18 17:15 C-Reactive Protein 5.40 mg/dL (0.00-1.30) H 11/20/18 16:44 Total Protein 4.7 g/dL (6.3-8.2) L 11/16/18 17:15 Albumin 2.7 g/dL (3.9-5) L 11/16/18 17:15 Albumin/Globulin Ratio 1.4 % 11/16/18 17:15 Blood Type A POSITIVE 11/16/18 17:15 Antibody Screen Negative 11/16/18 17:15 Crossmatch See Detail 11/16/18 17:15 Active Medications - Current Medications Current Medications: Generic Name Dose Route Start Last Admin Trade Name Freq PRN Reason Stop Dose Admin Acetaminophen 650 mg 11/16/18 23:29 11/17/18 15:31 Tylenol PO 650 mg Q4H PRN Administration Pain MILD(1-3)/Fever >100.5/MORROW Acetaminophen/Hydrocodone Bitart 2 each 11/20/18 11:24 11/23/18 09:50 [place] 5/325 PO 2 each Q6H PRN Administration Pain, Moderate (4-6) Albuterol 2.5 mg 11/20/18 11:27 Proventil IH Q4H PRN Wheezing Alprazolam 0.5 mg 11/20/18 11:27 Xanax PO TID PRN Anxiety Arformoterol Tartrate 15 mcg 11/20/18 20:00 11/23/18 07:58 Brovana Nebu IH 15 mcg Q12HRT RAJAT Administration Aspirin 81 mg 11/21/18 10:00 11/23/18 09:51 Halfprin Ec PO 81 mg QDAY RAJAT Administration Atorvastatin Calcium 40 mg 11/20/18 22:00 11/22/18 23:00 Lipitor PO 40 mg QHS RAJAT Administration Budesonide 0.5 mg 11/20/18 20:00 11/23/18 07:58 Pulmicort IH 0.5 mg Q12HRT RAJAT Administration Clopidogrel Bisulfate 75 mg 11/21/18 10:00 11/23/18 09:49 Plavix PO 75 mg QDAY RAJAT Administration Dextrose 50 ml 11/16/18 23:31 D50w (25gm) Syringe IV PRN PRN Hypoglycemia Digoxin 0.25 mg 11/20/18 17:00 11/22/18 18:05 Lanoxin PO 0.25 mg DAILY@1700 RAJAT Administration Diltiazem HCl 120 mg 11/20/18 14:00 11/23/18 09:49 Cardizem Cd PO 120 mg QDAY RAJAT Administration Furosemide 40 mg 11/21/18 10:00 11/23/18 09:51 Lasix PO 40 mg QDAY RAJAT Administration Gabapentin 800 mg 11/20/18 14:00 11/23/18 09:51 Neurontin PO 800 mg TID RAJAT Administration Hydromorphone HCl 0.5 mg 11/20/18 11:33 11/23/18 11:19 Dilaudid IV 0.5 mg Q3H PRN Administration Pain , Severe (7-10) Cefepime HCl 2 gm in 100 mls @ 200 mls/hr 11/20/18 17:00 11/23/18 13:36 Maxipime/Ns 2 Gm/100 Ml IV 200 mls/hr Q8HR RAJAT Administration Protocol Vancomycin HCl 1,500 mg/ 530 mls @ 333.333 mls/hr 11/21/18 08:00 11/23/18 09:52 Sodium Chloride IV 333.333 mls/hr Q12H RAJAT Administration Insulin Glargine 10 units 11/23/18 22:00 Lantus SUB-Q QHS [facility] Insulin Human Lispro 0 unit 11/18/18 17:45 11/23/18 13:37 Humalog SUB-Q 6 unit ACHS RAJAT Administration Protocol Ondansetron HCl 4 mg 11/16/18 23:29 Zofran IV Q8H PRN Nausea And Vomiting Pantoprazole Sodium 40 mg 11/21/18 10:00 11/23/18 09:51 Protonix PO 40 mg QDAY RAJAT Administration Sodium Chloride 10 ml 11/17/18 10:00 11/22/18 23:12 Sodium Chloride Flush Syringe 10 Ml IV 10 ml BID RAJAT Administration Sodium Chloride 10 ml 11/16/18 23:29 Sodium Chloride Flush Syringe 10 Ml IV PRN PRN LINE FLUSH Sodium Hypochlorite 1 applic 11/21/18 16:00 11/22/18 16:08 Dakin's Half Strength TP 1 ml DAILY RAJAT Administration Tiotropium Presto 1 puff 11/21/18 09:00 11/23/18 08:05 Spiriva IH 1 puff Q24HRT RAJAT Administration Warfarin Sodium 7.5 mg 11/23/18 17:00 Coumadin PO DAILY@1700 [facility] Nutrition/Malnutrition Assess - Dietary Evaluation Nutrition/Malnutrition Findings: Nutrition Notes Start: 11/21/18 13:31 Freq: Status: Active Protocol: Document 11/21/18 13:31 RM (Rec: 11/21/18 13:57 RM [id number]) Nutrition Notes Need for Assessment generated from: MD Order Initial or Follow up Assessment Current Diagnosis COPD,Hypertension,Heart Failure,Hyperlipidemia Other Pertinent Diagnosis R foot diabetic ulcer, L thigh wound, GI bleed, PVD, Coumadin toxicity Current Diet Cardiac/Consistent CHO, GI soft w/Glucerna BID Labs/Tests Reviewed Pertinent Medications Lasix Height 5 ft 7 in Weight 114.2 kg Usual Body Weight 109.09 kg [place] Body Weight (kg) 67.27 BMI 39.4 Subjective/Other Information Consulted for malnutrition and screened for Coumadin/Vit K diet education. 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 Stated he eats 50% of his meals here. Stated UBW is 240 lbs but unsure of how long ago he saw he weighed that. Pt was already familiar with Coumadin/Vit K diet. No physical signs of malnutrition. Percent of energy/protein needs met: 80%/56% Burn Absent Trauma Absent #1 Nutrition Diagnosis Inadequate protein intake Etiology wound healing As Evidenced by Signs and Symptoms pt meeting 56% of protein needs Is patient on ventilator? No Is Patient Ambulatory and/or Out of Bed No REE-([place]-confined to bed) 2297.136 Kcal/Kg value to use for calculation 16 Approximate Energy Requirements Using 1827 kcal/Kg Calculation Used for Recommendations Kcal/kg Additional Notes Protein Needs: 109-137g (1.2-1 .5g/kg 91kg adjBW) Fluid Needs: 1 ml/kcal Nutrition Intervention Change Diet Order: Continue current Add Supplement/Snack (indicate name/kcal Glucerna Vanilla TID /protein ) Provides kCal: 660 Provides Protein (gm) 30 Goal #1 Meet at least 75% of calorie and protein needs via PO and ONS intakes Anticipated Discharge Needs: Cardiac/Consistent CHO Follow-Up By: 11/24/18 Additional Comments Follow for PO and ONS intakes
[2018-11-23] MEDS: XANAX PO PRN (14:26)
[2018-11-23] MEDS: SODIUM CHLORIDE FLUSH SYRINGE 10 ML IV SCH ×2 (14:27→22:31)
[2018-11-23] MEDS: DAKIN'S HALF STRENGTH TP SCH (14:27)
[2018-11-23] MEDS: LANOXIN PO SCH (18:18)
[2018-11-23] MEDS: COUMADIN PO SCH (18:19)
[2018-11-23] MEDS: LANTUS SUB-Q SCH (23:07)
[2018-11-24] MEDS: DILAUDID IV PRN ×3 (03:33→20:49)
[2018-11-24] MEDS: MAXIPIME/NS 2 GM/100 ML 2 GM/100 ML BAG IV SCH ×3 (05:26→22:58)
[2018-11-24 07:47] LABS: INR 1.22 (0.87-1.13)
[2018-11-24] MEDS: PULMICORT IH SCH ×2 (08:20→19:42)
[2018-11-24] MEDS: BROVANA NEBU IH SCH ×2 (08:20→19:42)
[2018-11-24] MEDS: SPIRIVA IH SCH (08:24)
[2018-11-24] MEDS: HumaLOG SUB-Q SCH ×4 (08:43→22:40)
[2018-11-24] MEDS: NEURONTIN PO SCH ×3 (08:44→21:15)
--- NOTE | 2018-11-24 10:34 | Progress Note ---
Assessment and Plan Assessment and plan: 57-year-old man with a history of hypertension, diabetes, CHF, COPD, hyperlipidemia, A. fib on coumadin comes to the emergency room with complaints of diarrhea that started a day before presentation. He also complained of dark stool, he thinks that it started the day before admission. He feels weak. Patient was just discharged from the hospital on 11/10 GI bleed, melena; SIRS, DOUBT SEPSIS Reactive Leukocytosis secondary to severe anemia Acute Blood loss anemia Coumadin toxicity No evidence of overdose. Mild gastritis ILD on revatio Hypertension Diabetes mellitus Lower extremity wound Secondary coagulopathy, INR Paroxysmal Atrial fibrillation Morbid Obesity CHF, Stable Tobacco abuse COPD Hyperlipidemia, A. fib PVD Plan Continue supportive care. Surgery consulted patient had debridement of the right foot and left thigh on 11/21, will re-evaluate tomorrow ID put the patient on IV vancomycin and fortaz day 3 COLONOSCOPY- 6-10 mm polyp x 2 transverse (hot snare) Restarted with his Coumadin, INR is still low, pharmacy consulted for adjustment Interval Lasix s/p PRBC and FFP, H&H stable Internal Hemorrhoids HOLD DIGOXIN AND CARDIZEM DUE TO LOW BP Check fingersticks, initiate insulin sliding-scale hold antihypertensives, blood pressure will not tolerate Continue appropriate outpatient medications Echocardiogram from 08/02/2018 revealed EF of 40-45% with global left ventricular systolic function mildly decreased. Patient had evidence of severe pulmonary hypertension. Patient likely will benefit from SNF WOUND VAC SINCE LAST ADMISSION but was not used properly Patient has poor prognosis and needs SNF or risk loosing more limbs. Not sure he completed his linozilid from last admission CT of the leg was done and showed swelling but no abscess collection. Disposition; pending replacement, patient will get IV cefepime and vancomycin as a time of discharge for 2 weeks and will have wound VAC in the SNF facility. She is medically clear for discharge. History Interval history: Patient was seen and evaluated this morning, no new complaints. Hospitalist Physical - Physical exam Narrative exam: Not in cardiopulmonary distress. The patient appeared well nourished and normally developed. Vital signs as documented. Head exam is unremarkable. No scleral icterus . Neck is without jugular venous distension, thyromegaly, or carotid bruits. Lungs are clear to auscultation. Cardiac exam reveals regular rate and Rhythm. Abdominal exam reveals normal bowel sounds, no masses, no organomegaly and no aortic enlargement. Extremities right foot and left thigh ulcer. 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 No focal weakness. - Constitutional Vitals: Temp Pulse Resp BP Pulse Ox 97.5 F L 61 20 122/57 92 11/24/18 05:58 11/24/18 08:41 11/24/18 08:41 11/24/18 05:58 11/24/18 08:43 General appearance: Present: no acute distress Results - Labs CBC & Chem 7: 11/23/18 05:43 11/23/18 05:43 Labs: Laboratory Last Values WBC 10.8 K/mm3 (4.5-11.0) 11/23/18 05:43 RBC 2.96 M/mm3 (3.65-5.03) L 11/23/18 05:43 Hgb 8.2 gm/dl (11.8-15.2) L 11/23/18 05:43 Hct 26.4 % (35.5-45.6) L 11/23/18 05:43 MCV 89 fl (84-94) 11/23/18 05:43 MCH 28 pg (28-32) 11/23/18 05:43 MCHC 31 % (32-34) L 11/23/18 05:43 RDW 18.7 % (13.2-15.2) H 11/23/18 05:43 Plt Count 240 K/mm3 (140-440) 11/23/18 05:43 Lymph % (Auto) 9.7 % (13.4-35.0) L 11/23/18 05:43 [place] % (Auto) 6.6 % (0.0-7.3) 11/23/18 05:43 Eos % (Auto) 1.6 % (0.0-4.3) 11/23/18 05:43 Baso % (Auto) 0.8 % (0.0-1.8) 11/23/18 05:43 Lymph # 1.0 K/mm3 (1.2-5.4) L 11/23/18 05:43 [place] # 0.7 K/mm3 (0.0-0.8) 11/23/18 05:43 Eos # 0.2 K/mm3 (0.0-0.4) 11/23/18 05:43 Baso # 0.1 K/mm3 (0.0-0.1) 11/23/18 05:43 Add Manual Diff Complete 11/16/18 17:15 Total Counted 100 11/16/18 17:15 Seg Neutrophils % 81.3 % (40.0-70.0) H 11/23/18 05:43 Seg Neuts % (Manual) 93.0 % (40.0-70.0) H 11/16/18 17:15 Band Neutrophils % 0 % 11/16/18 17:15 Lymphocytes % (Manual) 3.0 % (13.4-35.0) L 11/16/18 17:15 Reactive Lymphs % (Man) 0 % 11/16/18 17:15 Monocytes % (Manual) 4.0 % (0.0-7.3) 11/16/18 17:15 Eosinophils % (Manual) 0 % (0.0-4.3) 11/16/18 17:15 Basophils % (Manual) 0 % (0.0-1.8) 11/16/18 17:15 Metamyelocytes % 0 % 11/16/18 17:15 Myelocytes % 0 % 11/16/18 17:15 Promyelocytes % 0 % 11/16/18 17:15 Blast Cells % 0 % 11/16/18 17:15 Nucleated RBC % Not Reportable 11/16/18 17:15 Seg Neutrophils # 8.8 K/mm3 (1.8-7.7) H 11/23/18 05:43 Seg Neutrophils # Man 16.6 K/mm3 (1.8-7.7) H 11/16/18 17:15 Band Neutrophils # 0.0 K/mm3 11/16/18 17:15 Lymphocytes # (Manual) 0.5 K/mm3 (1.2-5.4) L 11/16/18 17:15 Abs React Lymphs (Man) 0.0 K/mm3 11/16/18 17:15 Monocytes # (Manual) 0.7 K/mm3 (0.0-0.8) 11/16/18 17:15 Eosinophils # (Manual) 0.0 K/mm3 (0.0-0.4) 11/16/18 17:15 Basophils # (Manual) 0.0 K/mm3 (0.0-0.1) 11/16/18 17:15 Metamyelocytes # 0.0 K/mm3 11/16/18 17:15 Myelocytes # 0.0 K/mm3 11/16/18 17:15 Promyelocytes # 0.0 K/mm3 11/16/18 17:15 Blast Cells # 0.0 K/mm3 11/16/18 17:15 WBC Morphology Not Reportable 11/16/18 17:15 Hypersegmented Neuts Not Reportable 11/16/18 17:15 Hyposegmented Neuts Not Reportable 11/16/18 17:15 Hypogranular Neuts Not Reportable 11/16/18 17:15 Smudge Cells Not Reportable 11/16/18 17:15 Toxic Granulation Not Reportable 11/16/18 17:15 Toxic Vacuolation Not Reportable 11/16/18 17:15 Dohle Bodies Not Reportable 11/16/18 17:15 Pelger-Huet Anomaly Not Reportable 11/16/18 17:15 Amanda Rods Not Reportable 11/16/18 17:15 Platelet Estimate Appears normal 11/16/18 17:15 Clumped Platelets Not Reportable 11/16/18 17:15 Plt Clumps, EDTA Not Reportable 11/16/18 17:15 Large Platelets Not Reportable 11/16/18 17:15 Giant Platelets Not Reportable 11/16/18 17:15 Platelet Satelliting Not Reportable 11/16/18 17:15 Plt Morphology Comment Not Reportable 11/16/18 17:15 RBC Morphology Not Reportable 11/16/18 17:15 Dimorphic RBCs Not Reportable 11/16/18 17:15 Polychromasia Not Reportable 11/16/18 17:15 Hypochromasia Not Reportable 11/16/18 17:15 Poikilocytosis Not Reportable 11/16/18 17:15 Anisocytosis 1+ 11/16/18 17:15 Microcytosis Not Reportable 11/16/18 17:15 Macrocytosis Not Reportable 11/16/18 17:15 Spherocytes Not Reportable 11/16/18 17:15 Pappenheimer Bodies Not Reportable 11/16/18 17:15 Sickle Cells Not Reportable 11/16/18 17:15 Target Cells Not Reportable 11/16/18 17:15 Tear Drop Cells Not Reportable 11/16/18 17:15 Ovalocytes Few 11/16/18 17:15 Helmet Cells Not Reportable 11/16/18 17:15 [place] Bodies Not Reportable 11/16/18 17:15 Sylvester Rings Not Reportable 11/16/18 17:15 [place] Cells Not Reportable 11/16/18 17:15 Bite Cells Not Reportable 11/16/18 17:15 Crenated Cell Not Reportable 11/16/18 17:15 Elliptocytes Not Reportable 11/16/18 17:15 Acanthocytes (Spur) Not Reportable 11/16/18 17:15 Rouleaux Not Reportable 11/16/18 17:15 Hemoglobin C Crystals Not Reportable 11/16/18 17:15 Schistocytes Not Reportable 11/16/18 17:15 Malaria parasites Not Reportable 11/16/18 17:15 Elias Bodies Not Reportable 11/16/18 17:15 Hem Pathologist Commnt No 11/16/18 17:15 PT 16.2 Sec. (12.2-14.9) H 11/24/18 07:06 INR 1.22 (0.87-1.13) H 11/24/18 07:06 APTT 43.5 Sec. (24.2-36.6) H 11/16/18 17:15 Sodium 137 mmol/L (137-145) 11/23/18 05:43 Potassium 4.0 mmol/L (3.6-5.0) 11/23/18 05:43 Chloride 100.3 mmol/L (98-107) 11/23/18 05:43 Carbon Dioxide 22 mmol/L (22-30) 11/23/18 05:43 Anion Gap 19 mmol/L 11/23/18 05:43 BUN 11 mg/dL (9-20) 11/23/18 05:43 Creatinine 0.8 mg/dL (0.8-1.5) 11/23/18 05:43 Estimated GFR > 60 ml/min 11/23/18 05:43 BUN/Creatinine Ratio 14 % 11/23/18 05:43 Glucose 166 mg/dL (75-100) H 11/23/18 05:43 POC Glucose 186 (70-105) H 11/24/18 08:19 Calcium 8.3 mg/dL (8.4-10.2) L 11/23/18 05:43 Total Bilirubin 0.50 mg/dL (0.1-1.2) 11/16/18 17:15 AST 23 units/L (5-40) 11/16/18 17:15 ALT 44 units/L (7-56) 11/16/18 17:15 Alkaline Phosphatase 77 units/L (35-129) 11/16/18 17:15 C-Reactive Protein 5.40 mg/dL (0.00-1.30) H 11/20/18 16:44 Total Protein 4.7 g/dL (6.3-8.2) L 11/16/18 17:15 Albumin 2.7 g/dL (3.9-5) L 11/16/18 17:15 Albumin/Globulin Ratio 1.4 % 11/16/18 17:15 Vancomycin Trough 23.8 ug/mL (5.0-20.0) H 11/23/18 19:41 Blood Type A POSITIVE 11/16/18 17:15 Antibody Screen Negative 11/16/18 17:15 Crossmatch See Detail 11/16/18 17:15 Active Medications - Current Medications Current Medications: Generic Name Dose Route Start Last Admin Trade Name Freq PRN Reason Stop Dose Admin Acetaminophen 650 mg 11/16/18 23:29 11/17/18 15:31 Tylenol PO 650 mg Q4H PRN Administration Pain MILD(1-3)/Fever >100.5/MORROW Acetaminophen/Hydrocodone Bitart 2 each 11/20/18 11:24 11/23/18 09:50 [place] 5/325 PO 2 each Q6H PRN Administration Pain, Moderate (4-6) Albuterol 2.5 mg 11/20/18 11:27 Proventil IH Q4H PRN Wheezing Alprazolam 0.5 mg 11/20/18 11:27 11/23/18 14:26 Xanax PO 0.5 mg TID PRN Administration Anxiety Arformoterol Tartrate 15 mcg 11/20/18 20:00 11/24/18 08:20 Brovana Nebu IH 15 mcg Q12HRT RAJAT Administration Aspirin 81 mg 11/21/18 10:00 11/23/18 09:51 Halfprin Ec PO 81 mg QDAY RAJAT Administration Atorvastatin Calcium 40 mg 11/20/18 22:00 11/23/18 22:32 Lipitor PO 40 mg QHS RAJAT Administration Budesonide 0.5 mg 11/20/18 20:00 11/24/18 08:20 Pulmicort IH 0.5 mg Q12HRT RAJAT Administration Clopidogrel Bisulfate 75 mg 11/21/18 10:00 11/23/18 09:49 Plavix PO 75 mg QDAY RAJAT Administration Dextrose 50 ml 11/16/18 23:31 D50w (25gm) Syringe IV PRN PRN Hypoglycemia Digoxin 0.25 mg 11/20/18 17:00 11/23/18 18:18 Lanoxin PO 0.25 mg DAILY@1700 RAJAT Administration Diltiazem HCl 120 mg 11/20/18 14:00 11/23/18 09:49 Cardizem Cd PO 120 mg QDAY RAJAT Administration Furosemide 40 mg 11/21/18 10:00 11/23/18 09:51 Lasix PO 40 mg QDAY RAJAT Administration Gabapentin 800 mg 11/20/18 14:00 11/24/18 08:44 Neurontin PO 800 mg TID [facility] Administration Hydromorphone HCl 0.5 mg 11/20/18 11:33 11/24/18 08:44 Dilaudid IV 0.5 mg Q3H PRN Administration Pain , Severe (7-10) Cefepime HCl 2 gm in 100 mls @ 200 mls/hr 11/20/18 17:00 11/24/18 05:26 Maxipime/Ns 2 Gm/100 Ml IV 200 mls/hr Q8HR RAJAT Administration Protocol Vancomycin HCl 1,250 mg/ 275 mls @ 166.667 mls/hr 11/24/18 09:30 Sodium Chloride IV Q12H [facility] Insulin Glargine 10 units 11/23/18 22:00 11/23/18 23:07 Lantus SUB-Q 10 units QHS RAJAT Administration Insulin Human Lispro 0 unit 11/18/18 17:45 11/24/18 08:43 Humalog SUB-Q 2 unit ACHS [facility] Administration Protocol Ondansetron HCl 4 mg 11/16/18 23:29 Zofran IV Q8H PRN Nausea And Vomiting Pantoprazole Sodium 40 mg 11/21/18 10:00 11/23/18 09:51 Protonix PO 40 mg QDAY RAJAT Administration Sodium Chloride 10 ml 11/17/18 10:00 11/23/18 22:31 Sodium Chloride Flush Syringe 10 Ml IV 10 ml BID RAJAT Administration Sodium Chloride 10 ml 11/16/18 23:29 Sodium Chloride Flush Syringe 10 Ml IV PRN PRN LINE FLUSH Sodium Hypochlorite 1 applic 11/21/18 16:00 11/23/18 14:27 Dakin's Half Strength TP 1 ml DAILY RAJAT Administration Tiotropium [place] 1 puff 11/21/18 09:00 11/24/18 08:24 Spiriva IH 1 puff Q24HRT RAJAT Administration Warfarin Sodium 7.5 mg 11/23/18 17:00 11/23/18 18:19 Coumadin PO 7.5 mg DAILY@1700 RAJAT Administration Nutrition/Malnutrition Assess - Dietary Evaluation Nutrition/Malnutrition Findings: Nutrition Notes Start: 11/21/18 13:31 Freq: Status: Active Protocol: Document 11/21/18 13:31 RM (Rec: 11/21/18 13:57 RM [id number]) Nutrition Notes Need for Assessment generated from: MD Order Initial or Follow up Assessment Current Diagnosis COPD,Hypertension,Heart Failure,Hyperlipidemia Other Pertinent Diagnosis R foot diabetic ulcer, L thigh wound, GI bleed, PVD, Coumadin toxicity Current Diet Cardiac/Consistent CHO, GI soft w/Glucerna BID Labs/Tests Reviewed Pertinent Medications Lasix Height 5 ft 7 in Weight 114.2 kg Usual Body Weight 109.09 [address] Body Weight (kg) 67.27 BMI 39.4 Subjective/Other Information Consulted for malnutrition and screened for Coumadin/Vit K diet education. Pt stated that [employer] his appetite was poor and that he was not eating X 1 week. Stated he eats 50% of his meals here. Stated UBW is 240 lbs but unsure of how long ago he saw he weighed that. Pt was already familiar with Coumadin/Vit K diet. No physical signs of malnutrition. Percent of energy/protein needs met: 80%/56% Burn Absent Trauma Absent #1 Nutrition Diagnosis Inadequate protein intake Etiology wound healing As Evidenced by Signs and Symptoms pt meeting 56% of protein needs Is patient on ventilator? No Is Patient Ambulatory and/or Out of Bed No REE-([facility]-confined to bed) 2297.136 Kcal/Kg value to use for calculation 16 Approximate Energy Requirements Using 1827 kcal/Kg Calculation Used for Recommendations Kcal/kg Additional Notes Protein Needs: 109-137g (1.2-1 .5g/kg 91kg adjBW) Fluid Needs: 1 ml/kcal Nutrition Intervention Change Diet Order: Continue current Add Supplement/Snack (indicate name/kcal Glucerna Vanilla TID /protein ) Provides kCal: 660 Provides Protein (gm) 30 Goal #1 Meet at least 75% of calorie and protein needs via PO and ONS intakes Anticipated Discharge Needs: Cardiac/Consistent CHO Follow-Up By: 11/24/18 Additional Comments Follow for PO and ONS intakes
[2018-11-24] MEDS: VANCOMYCIN 1,250 MG in NACL 0.9% 250ML 250 ML IV SCH ×2 (10:46→21:15)
[2018-11-24] MEDS: CARDIZEM CD PO SCH (12:16)
[2018-11-24] MEDS: PLAVIX PO SCH (12:16)
[2018-11-24] MEDS: DAKIN'S HALF STRENGTH TP SCH (12:17)
[2018-11-24] MEDS: PROTONIX PO SCH (12:17)
[2018-11-24] MEDS: HALFPRIN EC PO SCH (12:17)
[2018-11-24] MEDS: LASIX PO SCH (12:17)
[2018-11-24] MEDS: SODIUM CHLORIDE FLUSH SYRINGE 10 ML IV SCH ×2 (12:18→21:22)
--- NOTE | 2018-11-24 14:35 | Progress Note ---
Assessment and Plan Cultures: none Assessment: 58 y/o male with diabetes, hypertension, history of left leg DVT, arthritis, CO PD, pulmonary hypertension, active tobacco use, peripheral arterial disease, Afib on coumadin, status post left foot transmetatarsal amputation; admitted on 11/16/2018 due to bloody stools for 24 hour. patient is unable to provide history as he is not the best historian. 1) SIRS v/s sepsis:Resolved. no fever. no leukocytosis. CRP 5.40 2) Chronic legs wounds with cellulitis: left thigh inner wound [id number] with copious sero-purulent wound drainage, with moderate odor noted. Right foot dorsum wound 4.5x6.5 cm no depth covered with slough. Minimal serosanguinous drainage and odor noted. Patient seen during recent admission for left thigh worsening wounds on his lower extremities. Arterial duplex and CTA with runoff showed extensive bilateral lower extremity peripheral vascular disease. Patient was seen by vascular surgery, on 11/06/2018, patient underwent left lower extremity angioplasty. On 11/07/2018, patient underwent bedside excisional debridement of left thigh wound, right foot wound and healed wound by general surgery. Cultures from debridement grew MRSA and Acinetobacter. Acinetobacter felt to be most likely a colonizer. He was treated with IV vancomycin while inpatient. Attempted to approve IV Dalvance not approved, patient was discharged on PO Linezolid 600 mg BID x 14 days- approved by case management. He also had a wound vac placed to the left thigh and home health care set up. He states the wound vac came off at home and it is unclear if home health care came. The patient lives in a home with his landlord and landlord's . He denies f/c. He has not followed up as outpatient in wound care clinic. He does not know if he finished the full course of PO linezolid. S/p excisional debridement of left thigh and right foot wounds 11/21/18. Left thigh wound with increased copious purulent drainage. CT shows no organized abscess. There is circumferential subcutaneous edema bilaterally. 3) Severe PVD 4) GI bleed and coumadin toxicity 5) Severe anemia 6) Malnutrition: albumin 2.7 Recommendations: - contact isolation needs to continue - f/u vascular consult - plan for revascularization of RLE as outpatient - continue vancomycin and cefepime D5 - anticipate discharge on Cefepime 2gms IV every 12 hours and Vancomycin 1,500mg IV every 12 hours for total 2 weeks ending 12/04/18 - place a PICC line will follow Griselda Akers MD Infectious Diseases [employer] [employer] [facility] [phone] O [phone] Subjective Date of service: 11/24/18 Principal diagnosis: GI bleed Interval history: Feels better no complaints, no fever. Objective - Exam Narrative Exam: General appearance: Alert in NAD, debilitated Eyes: anicteric sclerae, moist conjunctivae; no lid-lag; PERRLA HENT: Atraumatic; oropharynx limited. Neck: Trachea midline; supple, no thyromegaly or lymphadenopathy Lungs: CTA CV: RRR Abdomen: Soft, obese non tender Extremities: significant fior leg edema L>R, left TMA stump ok, left tight inner wound +left thigh wound with VAC Skin: as above Psych: Appropriate affect, alert and oriented to person, place and time. Neuro: alert and oriented x 3. Moving all extermities - Constitutional Vitals: Vital Signs Temp Pulse Resp BP Pulse Ox 97.0 F L 72 22 121/63 91 11/24/18 11:54 11/24/18 12:16 11/24/18 11:54 11/24/18 11:54 11/24/18 11:54 Temperature -Last 24 Hours Temperature 97.0 F Temperature 97.5 F Temperature 97.9 F Temperature 97.6 F - Labs CBC & Chem 7: 11/23/18 05:43 11/23/18 05:43 Labs: Abnormal lab results 11/23/18 11/23/18 11/23/18 Range/Units 18:02 19:41 21:37 PT (12.2-14.9) Sec. INR (0.87-1.13) POC Glucose 204 H 153 H (70-105) Vancomycin Trough 23.8 H (5.0-20.0) ug/mL 11/24/18 11/24/18 11/24/18 Range/Units 07:06 08:19 11:57 PT 16.2 H (12.2-14.9) Sec. INR 1.22 H (0.87-1.13) POC Glucose 186 H 244 H (70-105) Vancomycin Trough (5.0-20.0) ug/mL
[2018-11-24] MEDS: NORCO 5/325 PO PRN ×2 (15:40→23:24)
[2018-11-24] MEDS: COUMADIN PO SCH (17:53)
[2018-11-24] MEDS: LANOXIN PO SCH (17:54)
[2018-11-24] MEDS: LANTUS SUB-Q SCH (22:41)
[2018-11-25] MEDS: DILAUDID IV PRN ×3 (04:14→18:53)
[2018-11-25] MEDS: MAXIPIME/NS 2 GM/100 ML 2 GM/100 ML BAG IV SCH ×3 (06:28→23:03)
[2018-11-25 06:31] LABS: Hematocrit 24.2 % (35.5-45.6); Hemoglobin 7.4 gm/dl (11.8-15.2)
[2018-11-25 06:43] LABS: INR 1.69 (0.87-1.13)
[2018-11-25] MEDS: NEURONTIN PO SCH ×2 (08:32→15:00)
[2018-11-25] MEDS: HumaLOG SUB-Q SCH ×3 (08:51→18:50)
[2018-11-25] MEDS: DAKIN'S HALF STRENGTH TP SCH (10:00)
[2018-11-25] MEDS: PULMICORT IH SCH ×2 (11:24→19:32)
[2018-11-25] MEDS: BROVANA NEBU IH SCH ×2 (11:24→19:32)
[2018-11-25] MEDS: SPIRIVA IH SCH (11:40)
[2018-11-25] MEDS: VANCOMYCIN 1,250 MG in NACL 0.9% 250ML 250 ML IV SCH ×2 (11:40→21:01)
[2018-11-25] MEDS: PLAVIX PO SCH (11:41)
[2018-11-25] MEDS: LASIX PO SCH (11:41)
[2018-11-25] MEDS: HALFPRIN EC PO SCH (11:41)
[2018-11-25] MEDS: CARDIZEM CD PO SCH (11:41)
[2018-11-25] MEDS: PROTONIX PO SCH (11:41)
[2018-11-25] MEDS: SODIUM CHLORIDE FLUSH SYRINGE 10 ML IV SCH ×2 (11:43→23:06)
--- NOTE | 2018-11-25 13:22 | Progress Note ---
Assessment and Plan Assessment and plan: 57-year-old man with a history of hypertension, diabetes, CHF, COPD, hyperlipidemia, A. fib on coumadin comes to the emergency room with complaints of diarrhea that started a day before presentation. He also complained of dark stool, he thinks that it started the day before admission. He feels weak. Patient was just discharged from the hospital on 11/10 GI bleed, melena; SIRS, DOUBT SEPSIS Reactive Leukocytosis secondary to severe anemia Acute Blood loss anemia Coumadin toxicity No evidence of overdose. Mild gastritis ILD on revatio Hypertension Diabetes mellitus Lower extremity wound Secondary coagulopathy, INR Paroxysmal Atrial fibrillation Morbid Obesity CHF, Stable Tobacco abuse COPD Hyperlipidemia, A. fib PVD Plan Continue supportive care. Surgery consulted patient had debridement of the right foot and left thigh on 11/21, will re-evaluate tomorrow ID put the patient on IV vancomycin and fortaz day 3 COLONOSCOPY- 6-10 mm polyp x 2 transverse (hot snare) Restarted with his Coumadin, INR is still low, pharmacy consulted for adjustment Interval Lasix s/p PRBC and FFP, H&H stable Internal Hemorrhoids HOLD DIGOXIN AND CARDIZEM DUE TO LOW BP Check fingersticks, initiate insulin sliding-scale hold antihypertensives, blood pressure will not tolerate Continue appropriate outpatient medications Echocardiogram from 08/02/2018 revealed EF of 40-45% with global left ventricular systolic function mildly decreased. Patient had evidence of severe pulmonary hypertension. Patient likely will benefit from SNF WOUND VAC SINCE LAST ADMISSION but was not used properly Patient has poor prognosis and needs SNF or risk loosing more limbs. Not sure he completed his linozilid from last admission CT of the leg was done and showed swelling but no abscess collection. Disposition; pending rehab replacement, patient will get IV cefepime and vancomycin as a time of discharge for 2 weeks and will have wound VAC in the SNF facility. He is medically clear for discharge. History Interval history: Patient was seen and evaluated this morning, no new complaints. Hospitalist Physical - Physical exam Narrative exam: Not in cardiopulmonary distress. The patient appeared well nourished and normally developed. Vital signs as documented. Head exam is unremarkable. No scleral icterus . Neck is without jugular venous distension, thyromegaly, or carotid bruits. Lungs are clear to auscultation. Cardiac exam reveals regular rate and Rhythm. Abdominal exam reveals normal bowel sounds, no masses, no organomegaly and no aortic enlargement. Extremities right foot and left thigh ulcer. [employer]: Alert and oriented 3. No focal weakness. - Constitutional Vitals: Temp Pulse Resp BP Pulse Ox 97.7 F 68 20 114/56 85 11/25/18 05:36 11/25/18 11:49 11/25/18 11:49 11/25/18 05:36 11/25/18 10:00 General appearance: Present: no acute distress Results - Labs CBC & Chem 7: 11/25/18 05:46 11/23/18 05:43 Labs: Laboratory Last Values WBC 10.8 K/mm3 (4.5-11.0) 11/23/18 05:43 RBC 2.96 M/mm3 (3.65-5.03) L 11/23/18 05:43 Hgb 7.4 gm/dl (11.8-15.2) L 11/25/18 05:46 Hct 24.2 % (35.5-45.6) L 11/25/18 05:46 MCV 89 fl (84-94) 11/23/18 05:43 MCH 28 pg (28-32) 11/23/18 05:43 MCHC 31 % (32-34) L 11/23/18 05:43 RDW 18.7 % (13.2-15.2) H 11/23/18 05:43 Plt Count 240 K/mm3 (140-440) 11/23/18 05:43 Lymph % (Auto) 9.7 % (13.4-35.0) L 11/23/18 05:43 [place] % (Auto) 6.6 % (0.0-7.3) 11/23/18 05:43 Eos % (Auto) 1.6 % (0.0-4.3) 11/23/18 05:43 Baso % (Auto) 0.8 % (0.0-1.8) 11/23/18 05:43 Lymph # 1.0 K/mm3 (1.2-5.4) L 11/23/18 05:43 [place] # 0.7 K/mm3 (0.0-0.8) 11/23/18 05:43 Eos # 0.2 K/mm3 (0.0-0.4) 11/23/18 05:43 Baso # 0.1 K/mm3 (0.0-0.1) 11/23/18 05:43 Add Manual Diff Complete 11/16/18 17:15 Total Counted 100 11/16/18 17:15 Seg Neutrophils % 81.3 % (40.0-70.0) H 11/23/18 05:43 Seg Neuts % (Manual) 93.0 % (40.0-70.0) H 11/16/18 17:15 Band Neutrophils % 0 % 11/16/18 17:15 Lymphocytes % (Manual) 3.0 % (13.4-35.0) L 11/16/18 17:15 Reactive Lymphs % (Man) 0 % 11/16/18 17:15 Monocytes % (Manual) 4.0 % (0.0-7.3) 11/16/18 17:15 Eosinophils % (Manual) 0 % (0.0-4.3) 11/16/18 17:15 Basophils % (Manual) 0 % (0.0-1.8) 11/16/18 17:15 Metamyelocytes % 0 % 11/16/18 17:15 Myelocytes % 0 % 11/16/18 17:15 Promyelocytes % 0 % 11/16/18 17:15 Blast Cells % 0 % 11/16/18 17:15 Nucleated RBC % Not Reportable 11/16/18 17:15 Seg Neutrophils # 8.8 K/mm3 (1.8-7.7) H 11/23/18 05:43 Seg Neutrophils # Man 16.6 K/mm3 (1.8-7.7) H 11/16/18 17:15 Band Neutrophils # 0.0 K/mm3 11/16/18 17:15 Lymphocytes # (Manual) 0.5 K/mm3 (1.2-5.4) L 11/16/18 17:15 Abs React Lymphs (Man) 0.0 K/mm3 11/16/18 17:15 Monocytes # (Manual) 0.7 K/mm3 (0.0-0.8) 11/16/18 17:15 Eosinophils # (Manual) 0.0 K/mm3 (0.0-0.4) 11/16/18 17:15 Basophils # (Manual) 0.0 K/mm3 (0.0-0.1) 11/16/18 17:15 Metamyelocytes # 0.0 K/mm3 11/16/18 17:15 Myelocytes # 0.0 K/mm3 11/16/18 17:15 Promyelocytes # 0.0 K/mm3 11/16/18 17:15 Blast Cells # 0.0 K/mm3 11/16/18 17:15 WBC Morphology Not Reportable 11/16/18 17:15 Hypersegmented Neuts Not Reportable 11/16/18 17:15 Hyposegmented Neuts Not Reportable 11/16/18 17:15 Hypogranular Neuts Not Reportable 11/16/18 17:15 Smudge Cells Not Reportable 11/16/18 17:15 Toxic Granulation Not Reportable 11/16/18 17:15 Toxic Vacuolation Not Reportable 11/16/18 17:15 Dohle Bodies Not Reportable 11/16/18 17:15 Pelger-Huet Anomaly Not Reportable 11/16/18 17:15 Amanda Rods Not Reportable 11/16/18 17:15 Platelet Estimate Appears normal 11/16/18 17:15 Clumped Platelets Not Reportable 11/16/18 17:15 Plt Clumps, EDTA Not Reportable 11/16/18 17:15 Large Platelets Not Reportable 11/16/18 17:15 Giant Platelets Not Reportable 11/16/18 17:15 Platelet Satelliting Not Reportable 11/16/18 17:15 Plt Morphology Comment Not Reportable 11/16/18 17:15 RBC Morphology Not Reportable 11/16/18 17:15 Dimorphic RBCs Not Reportable 11/16/18 17:15 Polychromasia Not Reportable 11/16/18 17:15 Hypochromasia Not Reportable 11/16/18 17:15 Poikilocytosis Not Reportable 11/16/18 17:15 Anisocytosis 1+ 11/16/18 17:15 Microcytosis Not Reportable 11/16/18 17:15 Macrocytosis Not Reportable 11/16/18 17:15 Spherocytes Not Reportable 11/16/18 17:15 Pappenheimer Bodies Not Reportable 11/16/18 17:15 Sickle Cells Not Reportable 11/16/18 17:15 Target Cells Not Reportable 11/16/18 17:15 Tear Drop Cells Not Reportable 11/16/18 17:15 Ovalocytes Few 11/16/18 17:15 Helmet Cells Not Reportable 11/16/18 17:15 [place] Bodies Not Reportable 11/16/18 17:15 [place] Rings Not Reportable 11/16/18 17:15 Krissy Cells Not Reportable 11/16/18 17:15 Bite Cells Not Reportable 11/16/18 17:15 Crenated Cell Not Reportable 11/16/18 17:15 Elliptocytes Not Reportable 11/16/18 17:15 Acanthocytes (Spur) Not Reportable 11/16/18 17:15 Rouleaux Not Reportable 11/16/18 17:15 Hemoglobin C Crystals Not Reportable 11/16/18 17:15 Schistocytes Not Reportable 11/16/18 17:15 Malaria parasites Not Reportable 11/16/18 17:15 Elias Bodies Not Reportable 11/16/18 17:15 Hem Pathologist Commnt No 11/16/18 17:15 PT 21.0 Sec. (12.2-14.9) H 11/25/18 05:46 INR 1.69 (0.87-1.13) H 11/25/18 05:46 APTT 43.5 Sec. (24.2-36.6) H 11/16/18 17:15 Sodium 137 mmol/L (137-145) 11/23/18 05:43 Potassium 4.0 mmol/L (3.6-5.0) 11/23/18 05:43 Chloride 100.3 mmol/L (98-107) 11/23/18 05:43 Carbon Dioxide 22 mmol/L (22-30) 11/23/18 05:43 Anion Gap 19 mmol/L 11/23/18 05:43 BUN 11 mg/dL (9-20) 11/23/18 05:43 Creatinine 0.8 mg/dL (0.8-1.5) 11/23/18 05:43 Estimated GFR > 60 ml/min 11/23/18 05:43 BUN/Creatinine Ratio 14 % 11/23/18 05:43 Glucose 166 mg/dL (75-100) H 11/23/18 05:43 POC Glucose 197 (70-105) H 11/25/18 11:28 Calcium 8.3 mg/dL (8.4-10.2) L 11/23/18 05:43 Total Bilirubin 0.50 mg/dL (0.1-1.2) 11/16/18 17:15 AST 23 units/L (5-40) 11/16/18 17:15 ALT 44 units/L (7-56) 11/16/18 17:15 Alkaline Phosphatase 77 units/L (35-129) 11/16/18 17:15 C-Reactive Protein 5.40 mg/dL (0.00-1.30) H 11/20/18 16:44 Total Protein 4.7 g/dL (6.3-8.2) L 11/16/18 17:15 Albumin 2.7 g/dL (3.9-5) L 11/16/18 17:15 Albumin/Globulin Ratio 1.4 % 11/16/18 17:15 Vancomycin Trough 23.8 ug/mL (5.0-20.0) H 11/23/18 19:41 Blood Type A POSITIVE 11/16/18 17:15 Antibody Screen Negative 11/16/18 17:15 Crossmatch See Detail 11/16/18 17:15 Active Medications - Current Medications Current Medications: Generic Name Dose Route Start Last Admin Trade Name Freq PRN Reason Stop Dose Admin Acetaminophen 650 mg 11/16/18 23:29 11/17/18 15:31 Tylenol PO 650 mg Q4H PRN Administration Pain MILD(1-3)/Fever >100.5/MORROW Acetaminophen/Hydrocodone Bitart 2 each 11/20/18 11:24 11/24/18 23:24 Toponas 5/325 PO 2 each Q6H PRN Administration Pain, Moderate (4-6) Albuterol 2.5 mg 11/20/18 11:27 11/25/18 11:24 Proventil IH 2.5 mg Q4H PRN Administration Wheezing Alprazolam 0.5 mg 11/20/18 11:27 11/23/18 14:26 Xanax PO 0.5 mg TID PRN Administration Anxiety Arformoterol Tartrate 15 mcg 11/20/18 20:00 11/25/18 11:24 Brovana Nebu IH 15 mcg Q12HRT RAJAT Administration Aspirin 81 mg 11/21/18 10:00 11/25/18 11:41 Halfprin Ec PO 81 mg QDAY RAJAT Administration Atorvastatin Calcium 40 mg 11/20/18 22:00 11/24/18 22:45 Lipitor PO 40 mg QHS RAJAT Administration Budesonide 0.5 mg 11/20/18 20:00 11/25/18 11:24 Pulmicort IH 0.5 mg Q12HRT RAJAT Administration Clopidogrel Bisulfate 75 mg 11/21/18 10:00 11/25/18 11:41 Plavix PO 75 mg QDAY RAJAT Administration Dextrose 50 ml 11/16/18 23:31 D50w (25gm) Syringe IV PRN PRN Hypoglycemia Digoxin 0.25 mg 11/20/18 17:00 11/24/18 17:54 Lanoxin PO 0.25 mg DAILY@1700 RAJAT Administration Diltiazem HCl 120 mg 11/20/18 14:00 11/25/18 11:41 Cardizem Cd PO 120 mg QDAY RAJAT Administration Furosemide 40 mg 11/21/18 10:00 11/25/18 11:41 Lasix PO 40 mg QDAY RAJAT Administration Gabapentin 800 mg 11/20/18 14:00 11/25/18 08:32 Neurontin PO 800 mg TID RAJAT Administration Hydromorphone HCl 0.5 mg 11/20/18 11:33 11/25/18 08:23 Dilaudid IV 0.5 mg Q3H PRN Administration Pain , Severe (7-10) Cefepime HCl 2 gm in 100 mls @ 200 mls/hr 11/20/18 17:00 11/25/18 06:28 Maxipime/Ns 2 Gm/100 Ml IV 200 mls/hr Q8HR RAJAT Administration Protocol Vancomycin HCl 1,250 mg/ 275 mls @ 166.667 mls/hr 11/24/18 09:30 11/25/18 11:40 Sodium Chloride IV 166.667 mls/hr Q12H RAJAT Administration Insulin Glargine 10 units 11/23/18 22:00 11/24/18 22:41 Lantus SUB-Q 10 units QHS RAJAT Administration Insulin Human Lispro 0 unit 11/18/18 17:45 11/25/18 13:13 Humalog SUB-Q 2 unit ACHS RAJAT Administration Protocol Ondansetron HCl 4 mg 11/16/18 23:29 Zofran IV Q8H PRN Nausea And Vomiting Pantoprazole Sodium 40 mg 04/23/19 10:00 11/25/18 11:41 Protonix PO 40 mg QDAY RAJAT Administration Sodium Chloride 10 ml 11/17/18 10:00 11/25/18 11:43 Sodium Chloride Flush Syringe 10 Ml IV 10 ml BID RAJAT Administration Sodium Chloride 10 ml 11/16/18 23:29 Sodium Chloride Flush Syringe 10 Ml IV PRN PRN LINE FLUSH Sodium Hypochlorite 1 applic 11/21/18 16:00 11/24/18 12:17 Dakin's Half Strength TP 1 ml DAILY RAJAT Administration Tiotropium [place] 1 puff 11/21/18 09:00 11/25/18 11:40 Spiriva IH 1 puff Q24HRT RAJAT Administration Warfarin Sodium 7.5 mg 11/23/18 17:00 11/24/18 17:53 Coumadin PO 7.5 mg DAILY@1700 RAJAT Administration Nutrition/Malnutrition Assess - Dietary Evaluation Nutrition/Malnutrition Findings: Nutrition Notes Start: 11/21/18 13:31 Freq: Status: Active Protocol: Document 11/24/18 16:15 RM (Rec: 11/24/18 16:22 RM [id number]) Nutrition Notes Initial or Follow up Reassessment Current Diagnosis COPD,Hypertension,Heart Failure,Hyperlipidemia Other Pertinent Diagnosis R foot diabetic ulcer, L thigh wound, GI bleed, PVD, Coumadin toxicity, PVD Current Diet Cardiac/Consistent CHO, GI soft w/Glucerna TID Labs/Tests Reviewed Pertinent Medications Reviewed Height 5 ft 7 in Weight 114.2 kg [place] Body Weight (kg) 67.27 BMI 39.4 Subjective/Other Information Pt asleep at time of visit. Noted lunch at bedside w/100% eaten and empty Glucerna. Percent of energy/protein needs met: 100%/100% Burn Absent Trauma Absent #1 Nutrition Diagnosis Inadequate protein intake As Evidenced by Signs and Symptoms pt meeting 100% of calorie and protein needs Diagnosis Progress(for reassessment Resolved documentation) Is patient on ventilator? No Is Patient Ambulatory and/or Out of Bed No REE-([facility]-confined to bed) 2297.136 Kcal/Kg value to use for calculation 16 Approximate Energy Requirements Using 1827 kcal/Kg Calculation Used for Recommendations Kcal/kg Additional Notes Protein Needs: 109-137g (1.2-1 .5g/kg 91kg adjBW) Fluid Needs: 1 ml/kcal Nutrition Intervention Change Diet Order: Continue current Add Supplement/Snack (indicate name/kcal Decrease Glucerna Vanilla to 1 /protein ) daily Provides kCal: 220 Provides Protein (gm) 10 Goal #1 Continue to meet at least 75% of calorie and protein needs via PO and ONS intakes Anticipated Discharge Needs: Cardiac/Consistent CHO Follow-Up By: 12/01/18 Additional Comments Follow for PO and ONS intakes
--- NOTE | 2018-11-25 18:08 | XRay Report ---
PROCEDURE: XR CHEST 1V AP HISTORY: for picc line placment. FINDINGS: Single frontal view of the chest was acquired and compared to the prior examination of Torin Lozano. There is stable cardiomegaly. There is mild pulmonary edema. There is left pleural effusion versus pl eural thickening. There is a left-sided PICC line with its tip in superior data. There is no pneumoth orax. IMPRESSION: Left-sided PICC line tip in superior vena cava No pneumothorax This document is electronically signed by Artem Murphy MD., November 25 2018 06:06:49 PM ET
[2018-11-25] MEDS: LANOXIN PO SCH (18:52)
[2018-11-25] MEDS: COUMADIN PO SCH (18:52)
[2018-11-25] MEDS: LANTUS SUB-Q SCH (23:03)
[2018-11-26] MEDS: NORCO 5/325 PO PRN ×3 (02:10→21:17)
[2018-11-26] MEDS: HumaLOG SUB-Q SCH ×4 (05:05→17:47)
[2018-11-26] MEDS: NEURONTIN PO SCH ×4 (05:06→20:46)
[2018-11-26] MEDS: MAXIPIME/NS 2 GM/100 ML 2 GM/100 ML BAG IV SCH ×2 (06:37→14:31)
[2018-11-26] MEDS: DILAUDID IV PRN ×3 (08:14→16:13)
[2018-11-26 08:52] LABS: INR 2.32 (0.87-1.13)
[2018-11-26] MEDS: PULMICORT IH SCH ×2 (09:31→19:29)
[2018-11-26] MEDS: BROVANA NEBU IH SCH ×2 (09:31→19:29)
[2018-11-26] MEDS: SPIRIVA IH SCH (09:56)
[2018-11-26] MEDS: HALFPRIN EC PO SCH (10:06)
[2018-11-26] MEDS: PROTONIX PO SCH (10:06)
[2018-11-26] MEDS: CARDIZEM CD PO SCH (10:06)
[2018-11-26] MEDS: PLAVIX PO SCH (10:06)
[2018-11-26] MEDS: LASIX PO SCH (10:06)
[2018-11-26] MEDS: VANCOMYCIN 1,250 MG in NACL 0.9% 250ML 250 ML IV SCH ×2 (10:08→22:04)
[2018-11-26] MEDS: SODIUM CHLORIDE FLUSH SYRINGE 10 ML IV SCH ×2 (12:26→22:05)
--- NOTE | 2018-11-26 12:36 | Progress Note ---
Assessment and Plan - Patient Problems (1) A-fib Current Visit: Yes Status: Acute Qualifiers: Atrial fibrillation type: unspecified Qualified Code(s): I48.91 - Unspecified atrial fibrillation Plan to address problem: Patient remains in A. fib remains controlled. Currently on Coumadin. No more evidence of bleeding. Patient INR is therapeutic no melanotic stool. (2) GI bleed Current Visit: Yes Status: Acute Qualifiers: GI bleed type/associated pathology: melena Qualified Code(s): K92.1 - Melena Plan to address problem: GI blood loss anemia. Hemoglobin and hematocrit stable at 8.2 and 26. No further evidence of bleeding. Patient is on anticoagulant stable. Await detention facility. (3) COPD (chronic obstructive pulmonary disease) Current Visit: No Status: Chronic Qualifiers: COPD type: unspecified COPD Qualified Code(s): J44.9 - Chronic obstructive pulmonary disease, unspecified Plan to address problem: Stable with when necessary nebulizers. Albuterol Atrovent. He has when necessary oxygen. No hypoxemia. (4) Diabetes Current Visit: No Status: Chronic Plan to address problem: At present we'll continue Lantus. When that change medical management this time observe accordingly. History Interval history: Patient pleasant woman resting comfortably stable for supportive care. No further evidence of rectal bleeding or melanotic stool today Hospitalist Physical - Constitutional Vitals: Temp Pulse Resp BP Pulse Ox 97.9 F 58 L 20 125/64 95 11/26/18 04:53 11/26/18 10:06 11/26/18 04:53 11/26/18 10:06 11/26/18 04:53 General appearance: Present: no acute distress - EENT Eyes: Present: PERRL, EOM intact ENT: hearing intact, clear oral mucosa, dentition normal, poor dentition, no oropharyngeal erythema - Neck Neck: Present: supple, normal ROM. Absent: enlarged thyroid - Respiratory Respiratory effort: normal Respiratory: bilateral: diminished - Cardiovascular Rhythm: regular Heart Sounds: Present: S1 & S2 - Extremities Extremities: no ischemia, pulses intact, pulses symmetrical, No edema, normal temperature, normal color Extremity abnormal: edema Peripheral Pulses: within normal limits - Abdominal General gastrointestinal: soft, non-tender, non-distended, normal bowel sounds, other (obese) - Psychiatric Psychiatric: appropriate mood/affect, intact judgment & insight - Neurologic Neurologic: CNII-XII intact, no focal deficits Results - Labs CBC & Chem 7: 11/25/18 05:46 11/23/18 05:43 Labs: Laboratory Last Values WBC 10.8 K/mm3 (4.5-11.0) 11/23/18 05:43 RBC 2.96 M/mm3 (3.65-5.03) L 11/23/18 05:43 Hgb 7.4 gm/dl (11.8-15.2) L 11/25/18 05:46 Hct 24.2 % (35.5-45.6) L 11/25/18 05:46 MCV 89 fl (84-94) 11/23/18 05:43 MCH 28 pg (28-32) 11/23/18 05:43 MCHC 31 % (32-34) L 11/23/18 05:43 RDW 18.7 % (13.2-15.2) H 11/23/18 05:43 Plt Count 240 K/mm3 (140-440) 11/23/18 05:43 Lymph % (Auto) 9.7 % (13.4-35.0) L 11/23/18 05:43 [place] % (Auto) 6.6 % (0.0-7.3) 11/23/18 05:43 Eos % (Auto) 1.6 % (0.0-4.3) 11/23/18 05:43 Baso % (Auto) 0.8 % (0.0-1.8) 11/23/18 05:43 Lymph # 1.0 K/mm3 (1.2-5.4) L 11/23/18 05:43 [place] # 0.7 K/mm3 (0.0-0.8) 11/23/18 05:43 Eos # 0.2 K/mm3 (0.0-0.4) 11/23/18 05:43 Baso # 0.1 K/mm3 (0.0-0.1) 11/23/18 05:43 Add Manual Diff Complete 11/16/18 17:15 Total Counted 100 11/16/18 17:15 Seg Neutrophils % 81.3 % (40.0-70.0) H 11/23/18 05:43 Seg Neuts % (Manual) 93.0 % (40.0-70.0) H 11/16/18 17:15 Band Neutrophils % 0 % 11/16/18 17:15 Lymphocytes % (Manual) 3.0 % (13.4-35.0) L 11/16/18 17:15 Reactive Lymphs % (Man) 0 % 11/16/18 17:15 Monocytes % (Manual) 4.0 % (0.0-7.3) 11/16/18 17:15 Eosinophils % (Manual) 0 % (0.0-4.3) 11/16/18 17:15 Basophils % (Manual) 0 % (0.0-1.8) 11/16/18 17:15 Metamyelocytes % 0 % 11/16/18 17:15 Myelocytes % 0 % 11/16/18 17:15 Promyelocytes % 0 % 11/16/18 17:15 Blast Cells % 0 % 11/16/18 17:15 Nucleated RBC % Not Reportable 11/16/18 17:15 Seg Neutrophils # 8.8 K/mm3 (1.8-7.7) H 11/23/18 05:43 Seg Neutrophils # Man 16.6 K/mm3 (1.8-7.7) H 11/16/18 17:15 Band Neutrophils # 0.0 K/mm3 11/16/18 17:15 Lymphocytes # (Manual) 0.5 K/mm3 (1.2-5.4) L 11/16/18 17:15 Abs React Lymphs (Man) 0.0 K/mm3 11/16/18 17:15 Monocytes # (Manual) 0.7 K/mm3 (0.0-0.8) 11/16/18 17:15 Eosinophils # (Manual) 0.0 K/mm3 (0.0-0.4) 11/16/18 17:15 Basophils # (Manual) 0.0 K/mm3 (0.0-0.1) 11/16/18 17:15 Metamyelocytes # 0.0 K/mm3 11/16/18 17:15 Myelocytes # 0.0 K/mm3 11/16/18 17:15 Promyelocytes # 0.0 K/mm3 11/16/18 17:15 Blast Cells # 0.0 K/mm3 11/16/18 17:15 WBC Morphology Not Reportable 11/16/18 17:15 Hypersegmented Neuts Not Reportable 11/16/18 17:15 Hyposegmented Neuts Not Reportable 11/16/18 17:15 Hypogranular Neuts Not Reportable 11/16/18 17:15 Smudge Cells Not Reportable 11/16/18 17:15 Toxic Granulation Not Reportable 11/16/18 17:15 Toxic Vacuolation Not Reportable 11/16/18 17:15 Dohle Bodies Not Reportable 11/16/18 17:15 Pelger-Huet Anomaly Not Reportable 11/16/18 17:15 Amanda Rods Not Reportable 11/16/18 17:15 Platelet Estimate Appears normal 11/16/18 17:15 Clumped Platelets Not Reportable 11/16/18 17:15 Plt Clumps, EDTA Not Reportable 11/16/18 17:15 Large Platelets Not Reportable 11/16/18 17:15 Giant Platelets Not Reportable 11/16/18 17:15 Platelet Satelliting Not Reportable 11/16/18 17:15 Plt Morphology Comment Not Reportable 11/16/18 17:15 RBC Morphology Not Reportable 11/16/18 17:15 Dimorphic RBCs Not Reportable 11/16/18 17:15 Polychromasia Not Reportable 11/16/18 17:15 Hypochromasia Not Reportable 11/16/18 17:15 Poikilocytosis Not Reportable 11/16/18 17:15 Anisocytosis 1+ 11/16/18 17:15 Microcytosis Not Reportable 11/16/18 17:15 Macrocytosis Not Reportable 11/16/18 17:15 Spherocytes Not Reportable 11/16/18 17:15 Pappenheimer Bodies Not Reportable 11/16/18 17:15 Sickle Cells Not Reportable 11/16/18 17:15 Target Cells Not Reportable 11/16/18 17:15 Tear Drop Cells Not Reportable 11/16/18 17:15 Ovalocytes Few 11/16/18 17:15 Helmet Cells Not Reportable 11/16/18 17:15 [place] Bodies Not Reportable 11/16/18 17:15 [place] Rings Not Reportable 11/16/18 17:15 [place] Cells Not Reportable 11/16/18 17:15 Bite Cells Not Reportable 11/16/18 17:15 Crenated Cell Not Reportable 11/16/18 17:15 Elliptocytes Not Reportable 11/16/18 17:15 Acanthocytes (Spur) Not Reportable 11/16/18 17:15 Rouleaux Not Reportable 11/16/18 17:15 Hemoglobin C Crystals Not Reportable 11/16/18 17:15 Schistocytes Not Reportable 11/16/18 17:15 Malaria parasites Not Reportable 11/16/18 17:15 Elais Bodies Not Reportable 11/16/18 17:15 Hem Pathologist Commnt No 11/16/18 17:15 PT 27.1 Sec. (12.2-14.9) H 11/26/18 08:30 INR 2.32 (0.87-1.13) H 11/26/18 08:30 APTT 43.5 Sec. (24.2-36.6) H 11/16/18 17:15 Sodium 137 mmol/L (137-145) 11/23/18 05:43 Potassium 4.0 mmol/L (3.6-5.0) 11/23/18 05:43 Chloride 100.3 mmol/L (98-107) 11/23/18 05:43 Carbon Dioxide 22 mmol/L (22-30) 11/23/18 05:43 Anion Gap 19 mmol/L 11/23/18 05:43 BUN 11 mg/dL (9-20) 11/23/18 05:43 Creatinine 0.8 mg/dL (0.8-1.5) 11/23/18 05:43 Estimated GFR > 60 ml/min 11/23/18 05:43 BUN/Creatinine Ratio 14 % 11/23/18 05:43 Glucose 166 mg/dL (75-100) H 11/23/18 05:43 POC Glucose 236 (70-105) H 11/26/18 12:15 Calcium 8.3 mg/dL (8.4-10.2) L 11/23/18 05:43 Total Bilirubin 0.50 mg/dL (0.1-1.2) 11/16/18 17:15 AST 23 units/L (5-40) 11/16/18 17:15 ALT 44 units/L (7-56) 11/16/18 17:15 Alkaline Phosphatase 77 units/L (35-129) 11/16/18 17:15 C-Reactive Protein 5.40 mg/dL (0.00-1.30) H 11/20/18 16:44 Total Protein 4.7 g/dL (6.3-8.2) L 11/16/18 17:15 Albumin 2.7 g/dL (3.9-5) L 11/16/18 17:15 Albumin/Globulin Ratio 1.4 % 11/16/18 17:15 Vancomycin Trough 23.8 ug/mL (5.0-20.0) H 11/23/18 19:41 Blood Type A POSITIVE 11/16/18 17:15 Antibody Screen Negative 11/16/18 17:15 Crossmatch See Detail 11/16/18 17:15 Active Medications - Current Medications Current Medications: Generic Name Dose Route Start Last Admin Trade Name Freq PRN Reason Stop Dose Admin Acetaminophen 650 mg 11/16/18 23:29 11/17/18 15:31 Tylenol PO 650 mg Q4H PRN Administration Pain MILD(1-3)/Fever >100.5/MORROW Acetaminophen/Hydrocodone Bitart 2 each 11/20/18 11:24 11/26/18 02:10 [place] 5/325 PO 2 each Q6H PRN Administration Pain, Moderate (4-6) Albuterol 2.5 mg 11/20/18 11:27 11/25/18 11:24 Proventil IH 2.5 mg Q4H PRN Administration Wheezing Alprazolam 0.5 mg 11/20/18 11:27 11/23/18 14:26 Xanax PO 0.5 mg TID PRN Administration Anxiety Arformoterol Tartrate 15 mcg 11/20/18 20:00 11/26/18 09:31 Brovana Nebu IH 15 mcg Q12HRT RAJAT Administration Aspirin 81 mg 11/21/18 10:00 11/26/18 10:06 Halfprin Ec PO 81 mg QDAY RAJAT Administration Atorvastatin Calcium 40 mg 11/20/18 22:00 11/25/18 23:03 Lipitor PO 40 mg QHS RAJAT Administration Budesonide 0.5 mg 11/20/18 20:00 11/26/18 09:31 Pulmicort IH 0.5 mg Q12HRT RAJAT Administration Clopidogrel Bisulfate 75 mg 11/21/18 10:00 11/26/18 10:06 Plavix PO 75 mg QDAY RAJAT Administration Dextrose 50 ml 11/16/18 23:31 D50w (25gm) Syringe IV PRN PRN Hypoglycemia Digoxin 0.25 mg 11/20/18 17:00 11/25/18 18:52 Lanoxin PO 0.25 mg DAILY@1700 RAJAT Administration Diltiazem HCl 120 mg 11/20/18 14:00 11/26/18 10:06 Cardizem Cd PO 120 mg QDAY RAJAT Administration Furosemide 40 mg 11/21/18 10:00 11/26/18 10:06 Lasix PO 40 mg QDAY RAJAT Administration Gabapentin 800 mg 11/20/18 14:00 11/26/18 08:14 Neurontin PO 800 mg TID RAJAT Administration Hydromorphone HCl 0.5 mg 11/20/18 11:33 11/26/18 12:25 Dilaudid IV 0.5 mg Q3H PRN Administration Pain , Severe (7-10) Cefepime HCl 2 gm in 100 mls @ 200 mls/hr 11/20/18 17:00 11/26/18 06:37 Maxipime/Ns 2 Gm/100 Ml IV 200 mls/hr Q8HR RAJAT Administration Protocol Vancomycin HCl 1,250 mg/ 275 mls @ 166.667 mls/hr 11/24/18 09:30 11/26/18 10:08 Sodium Chloride IV 166.667 mls/hr Q12H RAJAT Administration Insulin Glargine 10 units 11/23/18 22:00 11/25/18 23:03 Lantus SUB-Q 10 units QHS RAJAT Administration Insulin Human Lispro 0 unit 11/18/18 17:45 11/26/18 12:26 Humalog SUB-Q 3 unit ACHS RAJAT Administration Protocol Ondansetron HCl 4 mg 11/16/18 23:29 Zofran IV Q8H PRN Nausea And Vomiting Pantoprazole Sodium 40 mg 11/21/18 10:00 11/26/18 10:06 Protonix PO 40 mg QDAY RAJAT Administration Sodium Chloride 10 ml 11/17/18 10:00 11/26/18 12:26 Sodium Chloride Flush Syringe 10 Ml IV 10 ml BID RAJAT Administration Sodium Chloride 10 ml 11/16/18 23:29 Sodium Chloride Flush Syringe 10 Ml IV PRN PRN LINE FLUSH Sodium Hypochlorite 1 applic 11/21/18 16:00 11/25/18 10:00 Dakin's Half Strength TP Not Given DAILY [facility] Tiotropium [place] 1 puff 11/21/18 09:00 11/26/18 09:56 Spiriva IH Not Given Q24HRT [facility] Warfarin Sodium 7.5 mg 11/23/18 17:00 11/25/18 18:52 Coumadin PO 7.5 mg DAILY@1700 [facility] Administration Nutrition/Malnutrition Assess - Dietary Evaluation Nutrition/Malnutrition Findings: Nutrition Notes Start: 11/21/18 13:31 Freq: Status: Active Protocol: Document 11/24/18 16:15 RM (Rec: 11/24/18 16:22 RM [id number]) Nutrition Notes Initial or Follow up Reassessment Current Diagnosis COPD,Hypertension,Heart Failure,Hyperlipidemia Other Pertinent Diagnosis R foot diabetic ulcer, L thigh wound, GI bleed, PVD, Coumadin toxicity, PVD Current Diet Cardiac/Consistent CHO, GI soft w/Glucerna TID Labs/Tests Reviewed Pertinent Medications Reviewed Height 5 ft 7 in Weight 114.2 kg [place] Body Weight (kg) 67.27 BMI 39.4 Subjective/Other Information Pt asleep at time of visit. Noted lunch at bedside w/100% eaten and empty Glucerna. Percent of energy/protein needs met: 100%/100% Burn Absent Trauma Absent #1 Nutrition Diagnosis Inadequate protein intake As Evidenced by Signs and Symptoms pt meeting 100% of calorie and protein needs Diagnosis Progress(for reassessment Resolved documentation) Is patient on ventilator? No Is Patient Ambulatory and/or Out of Bed No REE-([facility]-confined to bed) 2297.136 Kcal/Kg value to use for calculation 16 Approximate Energy Requirements Using 1827 kcal/Kg Calculation Used for Recommendations Kcal/kg Additional Notes Protein Needs: 109-137g (1.2-1 .5g/kg 91kg adjBW) Fluid Needs: 1 ml/kcal Nutrition Intervention Change Diet Order: Continue current Add Supplement/Snack (indicate name/kcal Decrease Glucerna Vanilla to 1 /protein ) daily Provides kCal: 220 Provides Protein (gm) 10 Goal #1 Continue to meet at least 75% of calorie and protein needs via PO and ONS intakes Anticipated Discharge Needs: Cardiac/Consistent CHO Follow-Up By: 12/01/18 Additional Comments Follow for PO and ONS intakes
[2018-11-26] MEDS: DAKIN'S HALF STRENGTH TP SCH (14:30)
[2018-11-26] MEDS: LANOXIN PO SCH (16:12)
[2018-11-26] MEDS: COUMADIN PO SCH (16:13)
[2018-11-26] MEDS: LANTUS SUB-Q SCH (22:05)
[2018-11-27] MEDS: HumaLOG SUB-Q SCH ×5 (00:32→22:53)
[2018-11-27] MEDS: DILAUDID IV PRN ×4 (00:34→21:55)
[2018-11-27] MEDS: NORCO 5/325 PO PRN ×2 (06:18→17:43)
[2018-11-27 07:45] LABS: INR 2.86 (0.87-1.13)
[2018-11-27 09:34] LABS: Basophils % (Auto) 0.7 % (0.0-1.8); Eosinophils % (Auto) 0.8 % (0.0-4.3); Hematocrit 23.5 % (35.5-45.6); Hemoglobin 7.3 gm/dl (11.8-15.2); Mean Corpuscular HGB Conc 31 % (32-34); Mean Corpuscular Volume 87 fl (84-94); Monocytes % (Auto) 5.5 % (0.0-7.3); Platelet Count 239 K/mm3 (140-440); Red Blood Count 2.71 M/mm3 (3.65-5.03); Red Cell Distribution Width 18.7 % (13.2-15.2)
[2018-11-27 09:35] LABS: Basophils # (Auto) 0.1 K/mm3 (0.0-0.1); Eosinophils # (Auto) 0.1 K/mm3 (0.0-0.4); Lymphocytes # (Auto) 0.9 K/mm3 (1.2-5.4); Monocytes # (Auto) 0.5 K/mm3 (0.0-0.8)
[2018-11-27] MEDS: NEURONTIN PO SCH ×3 (09:44→21:56)
[2018-11-27] MEDS: PROTONIX PO SCH (09:46)
[2018-11-27] MEDS: HALFPRIN EC PO SCH (09:46)
[2018-11-27] MEDS: CARDIZEM CD PO SCH (09:46)
[2018-11-27] MEDS: PLAVIX PO SCH (09:46)
[2018-11-27] MEDS: LASIX PO SCH (09:46)
[2018-11-27] MEDS: VANCOMYCIN 1,250 MG in NACL 0.9% 250ML 250 ML IV SCH (10:18)
[2018-11-27] MEDS: PULMICORT IH SCH ×2 (10:32→20:19)
[2018-11-27] MEDS: BROVANA NEBU IH SCH ×2 (10:32→20:20)
--- NOTE | 2018-11-27 10:41 | Progress Note ---
Assessment and Plan Cultures: none Assessment: 58 y/o male with diabetes, hypertension, history of left leg DVT, arthritis, COPD, pulmonary hypertension, active tobacco use, peripheral arterial disease, Afib on coumadin, status post left foot transmetatarsal amputation; admitted on 11/16/2018 due to bloody stools for 24 hour. patient is unable to provide history as he is not the best historian. 1) SIRS v/s sepsis:Resolved. no fever. no leukocytosis. CRP 5.40 2) Chronic legs wounds with cellulitis: left thigh inner wound [id number] with copious sero-purulent wound drainage, with moderate odor noted. Right foot dorsum wound 4.5x6.5 cm no depth covered with slough. Minimal serosanguinous drainage and odor noted. Patient seen during recent admission for left thigh worsening wounds on his lower extremities. Arterial duplex and CTA with runoff showed extensive bilateral lower extremity peripheral vascular disease. Patient was seen by vascular surgery, on 11/06/2018, patient underwent left lower extremity angioplasty. On 11/07/2018, patient underwent bedside excisional debridement of left thigh wound, right foot wound and healed wound by general surgery. Cultures from debridement grew MRSA and Acinetobacter. Acinetobacter felt to be most likely a colonizer. He was treated with IV vancomycin while inpatient. Attempted to approve IV Dalvance not approved, patient was discharged on PO Linezolid 600 mg BID x 14 days- approved by case management. He also had a wound vac placed to the left thigh and home health care set up. He states the wound vac came off at home and it is unclear if home health care came. The patient lives in a home with his landlord and [employer] . He denies f/c. He has not followed up as outpatient in wound care clinic. He does not know if he finished the full course of PO linezolid. S/p excisional debridement of left thigh and right foot wounds 11/21/18. Left thigh wound with increased copious purulent drainage. CT shows no organized abscess. There is circumferential subcutaneous edema bilaterally. 3) Severe PVD 4) GI bleed and coumadin toxicity 5) Severe anemia 6) Malnutrition: albumin 2.7 Recommendations: - contact isolation needs to continue - f/u vascular consult - plan for revascularization of RLE as outpatient - continue vancomycin and cefepime D8 - anticipate discharge on Cefepime 2gms IV every 12 hours and Vancomycin 1,500mg IV every 12 hours for total 2 weeks ending 12/04/18 -consult placed with case management -ID is signing off [facility] M: [phone] O:[phone] Subjective Date of service: 11/27/18 Principal diagnosis: GI bleed Interval history: Patient seen and examined. Left thigh pain improved.. + wound vac. No fevers. Objective - Exam Narrative Exam: General appearance: Alert in NAD, debilitated Eyes: anicteric sclerae, moist conjunctivae; no lid-lag; PERRLA HENT: Atraumatic; oropharynx limited. Neck: Trachea midline; supple, no thyromegaly or lymphadenopathy Lungs: CTA CV: RRR Abdomen: Soft, obese non tender Extremities: left TMA stump ok,s/p left thigh wound debridementt. +wound vac. Right foot dorsum wound with dressing, no drainage. Skin: as above Psych: Appropriate affect, alert and oriented to person, place and time. Neuro: alert and oriented x 3. Moving all extremities - Constitutional Vitals: Vital Signs Temp Pulse Resp BP Pulse Ox 97.5 F L 58 L 20 122/59 94 11/27/18 06:20 11/27/18 06:20 11/27/18 06:20 11/27/18 06:20 11/27/18 06:20 Temperature -Last 24 Hours Temperature 97.5 F Temperature 97.9 F Temperature 97.9 F Temperature 97.5 F - Labs CBC & Chem 7: 11/27/18 07:00 11/23/18 05:43 Labs: Abnormal lab results 11/26/18 11/26/18 11/26/18 Range/Units 12:15 16:53 22:00 RBC (3.65-5.03) M/mm3 Hgb (11.8-15.2) gm/dl Hct (35.5-45.6) % MCH (28-32) pg MCHC (32-34) % RDW (13.2-15.2) % Lymph % (Auto) (13.4-35.0) % Lymph # (1.2-5.4) K/mm3 Seg Neutrophils % (40.0-70.0) % PT (12.2-14.9) Sec. INR (0.87-1.13) POC Glucose 236 H 197 H 225 H (70-105) 11/27/18 11/27/18 11/27/18 Range/Units 07:00 07:43 10:10 RBC 2.71 L (3.65-5.03) M/mm3 Hgb 7.3 L (11.8-15.2) gm/dl Hct 23.5 L (35.5-45.6) % MCH 27 L (28-32) pg MCHC 31 L (32-34) % RDW 18.7 H (13.2-15.2) % Lymph % (Auto) 10.0 L (13.4-35.0) % Lymph # 0.9 L (1.2-5.4) K/mm3 Seg Neutrophils % 83.0 H (40.0-70.0) % PT 32.0 H (12.2-14.9) Sec. INR 2.86 H (0.87-1.13) POC Glucose 154 H (70-105)
--- NOTE | 2018-11-27 13:21 | Progress Note ---
Assessment and Plan GI bleed, melena, s/p EGD and colonoscopy w/o sign of active bleeding - likely from supratherapeutic INR' (10.8 on admission), resolved Acute Blood loss anemia, s/p 3 unit PRBC transfusion, h/h stable now Coumadin toxicity No evidence of overdose. 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 -During this hospital stay the patient underwent COLONOSCOPY- 6-10 mm polyp x 2 transverse (hot snare), EGD was benign -INR was over 10 and subsequently improved. There is no clear documentation of the patient received FFP. -INR now corrected and GI recommends that it can be re-iniatied. Left LE CT: There is skin defect in the medial soft tissues of the distal left thigh. No organized abscess is seen. There is circumferential subcutaneous edema bilaterally. Peripheral arterial disease bilaterally. Hospitalist Physical General Apperance: The patient lying in bed, breathing comfortable HEENT: Normocephalic, atraumatic. Pupils equally round and reactive to light, EOMI, no sclericterus or JVD or thyromegaly or nodule. , no carotid bruit, mucous membranes moist, no exudate or erythema Heart: S1-S2, regular is rhythm Lungs: Clear to auscultation bilaterally, breathing comfortable Abdomen: Positive bowel sounds, soft, nontender, nondistended, no organomegaly Extremities: Left lower extremity wound. No cyanosis clubbing,left transmet atarsal amputation. trace generalized edema Skin: multiple lesions on the skin. thigh wound on the left, stitches still in place Neuro: cranial nerves 2-12 intact, speech is fluent, motor/sensory intact Subjective Date of service: 11/27/18 Principal diagnosis: GI bleed Interval history: Patient seen and examined no acute issue discharge pending on placement Objective - Constitutional Vitals: Vital Signs - 12hr 11/27/18 11/27/18 11/27/18 05:00 06:20 10:32 Temperature 97.5 F L Pulse Rate 58 L Pulse Rate [ 67 Anterior Bilateral Throughout] Respiratory 20 Rate Respiratory 18 Rate [Anterior Bilateral Throughout] Respiratory 20 Rate [Left Thigh] Blood Pressure 122/59 O2 Sat by Pulse 94 93 Oximetry 11/27/18 10:42 Temperature Pulse Rate Pulse Rate [ 70 Anterior Bilateral Throughout] Respiratory Rate Respiratory 20 Rate [Anterior Bilateral Throughout] Respiratory Rate [Left Thigh] Blood Pressure O2 Sat by Pulse Oximetry - Labs CBC & Chem 7: 11/27/18 07:00 11/28/18 05:30 Labs: Abnormal lab results 11/26/18 11/26/18 11/27/18 Range/Units 16:53 22:00 07:00 RBC 2.71 L (3.65-5.03) M/mm3 Hgb 7.3 L (11.8-15.2) gm/dl Hct 23.5 L (35.5-45.6) % MCH 27 L (28-32) pg MCHC 31 L (32-34) % RDW 18.7 H (13.2-15.2) % Lymph % (Auto) 10.0 L (13.4-35.0) % Lymph # 0.9 L (1.2-5.4) K/mm3 Seg Neutrophils % 83.0 H (40.0-70.0) % PT (12.2-14.9) Sec. INR (0.87-1.13) POC Glucose 197 H 225 H (70-105) Vancomycin Trough (5.0-20.0) ug/mL 11/27/18 11/27/18 11/27/18 Range/Units 07:43 10:10 10:10 RBC (3.65-5.03) M/mm3 Hgb (11.8-15.2) gm/dl Hct (35.5-45.6) % MCH (28-32) pg MCHC (32-34) % RDW (13.2-15.2) % Lymph % (Auto) (13.4-35.0) % Lymph # (1.2-5.4) K/mm3 Seg Neutrophils % (40.0-70.0) % PT 32.0 H (12.2-14.9) Sec. INR 2.86 H (0.87-1.13) POC Glucose 154 H (70-105) Vancomycin Trough 27.9 H (5.0-20.0) ug/mL 11/27/18 Range/Units 11:51 RBC (3.65-5.03) M/mm3 Hgb (11.8-15.2) gm/dl Hct (35.5-45.6) % MCH (28-32) pg MCHC (32-34) % RDW (13.2-15.2) % Lymph % (Auto) (13.4-35.0) % Lymph # (1.2-5.4) K/mm3 Seg Neutrophils % (40.0-70.0) % PT (12.2-14.9) Sec. INR (0.87-1.13) POC Glucose 246 H (70-105) Vancomycin Trough (5.0-20.0) ug/mL
[2018-11-27] MEDS: SPIRIVA IH SCH (13:32)
[2018-11-27] MEDS ORDERED: COUMADIN PO SCH (17:00)
[2018-11-27] MEDS: LANOXIN PO SCH (17:43)
[2018-11-27] MEDS: SODIUM CHLORIDE FLUSH SYRINGE 10 ML IV SCH (21:57)
[2018-11-27] MEDS: LANTUS SUB-Q SCH (23:22)
[2018-11-28] MEDS: DILAUDID IV PRN ×5 (02:28→21:22)
[2018-11-28] MEDS: NORCO 5/325 PO PRN (05:28)
[2018-11-28 06:23] LABS: INR 3.09 (0.87-1.13)
[2018-11-28 06:39] LABS: BUN/Creatinine Ratio 24; Blood Urea Nitrogen 17 mg/dL (9-20); Calcium 8.3 mg/dL (8.4-10.2); Hemolysis Index 0
[2018-11-28] MEDS: HumaLOG SUB-Q SCH ×4 (08:30→22:10)
[2018-11-28] MEDS: BROVANA NEBU IH SCH ×2 (09:01→20:47)
[2018-11-28] MEDS: PULMICORT IH SCH ×2 (09:01→20:47)
[2018-11-28] MEDS: SPIRIVA IH SCH (09:06)
[2018-11-28] MEDS: PROTONIX PO SCH (09:41)
[2018-11-28] MEDS: SODIUM CHLORIDE FLUSH SYRINGE 10 ML IV SCH ×3 (09:42→21:23)
[2018-11-28] MEDS: NEURONTIN PO SCH ×3 (09:46→21:21)
[2018-11-28] MEDS: PLAVIX PO SCH (09:47)
[2018-11-28] MEDS: LASIX PO SCH (09:47)
[2018-11-28] MEDS: HALFPRIN EC PO SCH (09:47)
[2018-11-28] MEDS: CARDIZEM CD PO SCH (13:27)
[2018-11-28] MEDS: MAXIPIME/NS 2 GM/100 ML 2 GM/100 ML BAG IV SCH ×2 (13:28→21:23)
[2018-11-28] MEDS: VANCOMYCIN 1,500 MG in NACL 0.9% 500 ML 500 ML IV SCH (15:50)
[2018-11-28] MEDS ORDERED: COUMADIN PO SCH ×3 (17:00)
[2018-11-28] MEDS: LANOXIN PO SCH (18:16)
[2018-11-28] MEDS: DAKIN'S HALF STRENGTH TP SCH (18:23)
[2018-11-28] MEDS: LANTUS SUB-Q SCH (22:11)
[2018-11-29] MEDS: NORCO 5/325 PO PRN ×4 (00:16→20:09)
[2018-11-29] MEDS: DILAUDID IV PRN ×4 (04:05→23:45)
[2018-11-29] MEDS: MAXIPIME/NS 2 GM/100 ML 2 GM/100 ML BAG IV SCH ×3 (05:53→21:20)
[2018-11-29 07:10] LABS: INR 2.63 (0.87-1.13)
[2018-11-29] MEDS: DAKIN'S HALF STRENGTH TP SCH ×2 (08:06→09:22)
[2018-11-29] MEDS: PULMICORT IH SCH ×2 (08:09→20:35)
[2018-11-29] MEDS: BROVANA NEBU IH SCH ×2 (08:09→20:35)
[2018-11-29] MEDS: NEURONTIN PO SCH ×3 (09:20→20:05)
[2018-11-29] MEDS: LASIX PO SCH (09:21)
[2018-11-29] MEDS: PROTONIX PO SCH (09:21)
[2018-11-29] MEDS: PLAVIX PO SCH (09:21)
[2018-11-29] MEDS: HALFPRIN EC PO SCH (09:21)
[2018-11-29] MEDS: CARDIZEM CD PO SCH (09:21)
[2018-11-29] MEDS: HumaLOG SUB-Q SCH ×4 (09:22→21:40)
[2018-11-29] MEDS: SODIUM CHLORIDE FLUSH SYRINGE 10 ML IV SCH ×2 (09:23→21:20)
[2018-11-29] MEDS: SPIRIVA IH SCH (10:29)
--- NOTE | 2018-11-29 11:04 | Progress Note ---
Assessment and Plan GI bleed, melena, s/p EGD and colonoscopy w/o sign of active bleeding - likely from supratherapeutic INR' (10.8 on admission), resolved Acute Blood loss anemia, s/p 3 unit PRBC transfusion, h/h stable now Coumadin toxicity No evidence of overdose. 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 -During this hospital stay the patient underwent COLONOSCOPY- 6-10 mm polyp x 2 transverse (hot snare), EGD was benign -INR was over 10 and subsequently improved. There is no clear documentation of the patient received FFP. -INR now corrected and GI recommends that it can be re-iniatied. Left LE CT: There is skin defect in the medial soft tissues of the distal left thigh. No organized abscess is seen. There is circumferential subcutaneous edema bilaterally. Peripheral arterial disease bilaterally. Hospitalist Physical General Apperance: The patient lying in bed, breathing comfortable HEENT: Normocephalic, atraumatic. Pupils equally round and reactive to light, EOMI, no sclericterus or JVD or thyromegaly or nodule. , no carotid bruit, mucous membranes moist, no exudate or erythema Heart: S1-S2, regular is rhythm Lungs: Clear to auscultation bilaterally, breathing comfortable Abdomen: Positive bowel sounds, soft, nontender, nondistended, no organomegaly Extremities: Left lower extremity wound. No cyanosis clubbing,left transmet atarsal amputation. trace generalized edema Skin: multiple lesions on the skin. thigh wound on the left, stitches still in place Neuro: cranial nerves 2-12 intact, speech is fluent, motor/sensory intact Subjective Date of service: 11/28/18 Principal diagnosis: GI bleed Interval history: Patient seen and examined no acute issue discharge pending on placement Objective - Constitutional Vitals: Vital Signs - 12hr 11/28/18 11/29/18 11/29/18 23:46 05:24 08:13 Temperature 97.5 F L 97.5 F L Pulse Rate 71 60 Pulse Rate [ 67 Throughout] Respiratory 20 20 Rate Respiratory 18 Rate [ Throughout] Blood Pressure 128/64 127/58 O2 Sat by Pulse 95 94 88 Oximetry 11/29/18 08:23 Temperature Pulse Rate Pulse Rate [ 56 L Throughout] Respiratory Rate Respiratory 18 Rate [ Throughout] Blood Pressure O2 Sat by Pulse Oximetry - Labs CBC & Chem 7: 11/27/18 07:00 11/28/18 05:30 Labs: Abnormal lab results 11/28/18 11/28/18 11/28/18 Range/Units 12:41 15:55 21:40 PT (12.2-14.9) Sec. INR (0.87-1.13) POC Glucose 228 H 201 H 267 H (70-105) 11/29/18 11/29/18 Range/Units 06:40 07:52 PT 29.9 H (12.2-14.9) Sec. INR 2.63 H (0.87-1.13) POC Glucose 124 H (70-105)
[2018-11-29] MEDS: VANCOMYCIN 1,500 MG in NACL 0.9% 500 ML 500 ML IV SCH (13:34)
--- NOTE | 2018-11-29 14:26 | Progress Note ---
Assessment and Plan GI bleed, melena, s/p EGD and colonoscopy w/o sign of active bleeding - likely from supratherapeutic INR' (10.8 on admission), resolved Acute Blood loss anemia, s/p 3 unit PRBC transfusion, h/h stable now Coumadin toxicity No evidence of overdose. 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 -During this hospital stay the patient underwent COLONOSCOPY- 6-10 mm polyp x 2 transverse (hot snare), EGD was benign -INR was over 10 and subsequently improved. There is no clear documentation of the patient received FFP. -INR now corrected and GI recommends that it can be re-iniatied. Left LE CT: There is skin defect in the medial soft tissues of the distal left thigh. No organized abscess is seen. There is circumferential subcutaneous edema bilaterally. Peripheral arterial disease bilaterally. Hospitalist Physical General Apperance: The patient lying in bed, breathing comfortable HEENT: Normocephalic, atraumatic. Pupils equally round and reactive to light, EOMI, no sclericterus or JVD or thyromegaly or nodule. , no carotid bruit, mucous membranes moist, no exudate or erythema Heart: S1-S2, regular is rhythm Lungs: Clear to auscultation bilaterally, breathing comfortable Abdomen: Positive bowel sounds, soft, nontender, nondistended, no organomegaly Extremities: Left lower extremity wound. No cyanosis clubbing, left tra nsmetatarsal amputation. trace generalized edema Skin: multiple lesions on the skin. thigh wound on the left, stitches still in place Neuro: cranial nerves 2-12 intact, speech is fluent, motor/sensory intact Subjective Date of service: 11/29/18 Principal diagnosis: GI bleed Interval history: Patient seen and examined no acute issue discharge pending on placement Objective - Constitutional Vitals: Vital Signs - 12hr 11/29/18 11/29/18 11/29/18 05:24 08:13 08:23 Temperature 97.5 F L Pulse Rate 60 Pulse Rate [ 67 56 L Throughout] Respiratory 20 Rate Respiratory 18 18 Rate [ Throughout] Blood Pressure 127/58 O2 Sat by Pulse 94 88 Oximetry 11/29/18 12:16 Temperature 97.5 F L Pulse Rate 79 Pulse Rate [ Throughout] Respiratory 24 Rate Respiratory Rate [ Throughout] Blood Pressure 123/62 O2 Sat by Pulse 90 Oximetry - Labs CBC & Chem 7: 11/29/18 19:50 11/28/18 05:30 Labs: Abnormal lab results 11/28/18 11/28/18 11/28/18 Range/Units 12:41 15:55 21:40 PT (12.2-14.9) Sec. INR (0.87-1.13) POC Glucose 228 H 201 H 267 H (70-105) 11/29/18 11/29/18 Range/Units 06:40 07:52 PT 29.9 H (12.2-14.9) Sec. INR 2.63 H (0.87-1.13) POC Glucose 124 H (70-105)
[2018-11-29] MEDS: LANOXIN PO SCH (16:54)
[2018-11-29] MEDS: COUMADIN PO SCH (16:54)
[2018-11-29] MEDS: XANAX PO PRN (20:08)
[2018-11-29 20:20] LABS: Hematocrit 22.4 % (35.5-45.6)
[2018-11-29] MEDS: LANTUS SUB-Q SCH (21:40)
[2018-11-30] MEDS: NORCO 5/325 PO PRN ×3 (05:10→17:46)
[2018-11-30] MEDS: MAXIPIME/NS 2 GM/100 ML 2 GM/100 ML BAG IV SCH ×3 (05:11→20:59)
[2018-11-30 07:10] LABS: INR 2.43 (0.87-1.13)
[2018-11-30] MEDS: DILAUDID IV PRN ×3 (08:30→20:59)
[2018-11-30] MEDS ORDERED: CATHFLO IV ONE (08:56)
[2018-11-30] MEDS ORDERED: WATER FOR INJ Sterile (PF) 10 ML ONE (10:01)
[2018-11-30] MEDS: NEURONTIN PO SCH ×3 (10:01→20:59)
[2018-11-30] MEDS: XANAX PO PRN (10:01)
[2018-11-30] MEDS: LASIX PO SCH (10:02)
[2018-11-30] MEDS: PROTONIX PO SCH (10:02)
[2018-11-30] MEDS: HumaLOG SUB-Q SCH ×4 (10:02→23:20)
[2018-11-30] MEDS: PLAVIX PO SCH (10:02)
[2018-11-30] MEDS: HALFPRIN EC PO SCH (10:02)
[2018-11-30] MEDS: SODIUM CHLORIDE FLUSH SYRINGE 10 ML IV SCH ×2 (10:03→21:00)
[2018-11-30] MEDS: CARDIZEM CD PO SCH (10:19)
[2018-11-30] MEDS: PULMICORT IH SCH ×2 (11:40→21:06)
[2018-11-30] MEDS: BROVANA NEBU IH SCH ×2 (11:41→21:07)
[2018-11-30] MEDS: SPIRIVA IH SCH (11:49)
--- NOTE | 2018-11-30 13:57 | Progress Note ---
Assessment and Plan GI bleed, melena, s/p EGD and colonoscopy w/o sign of active bleeding - likely from supratherapeutic INR' (10.8 on admission), resolved Acute Blood loss anemia, s/p 3 unit PRBC transfusion, h/h stable now Coumadin toxicity No evidence of overdose. 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 d/c planning per CM when place available Brief History 58 y/o male with diabetes, hypertension, history of left leg DVT, arthritis, COPD, pulmonary hypertension, active tobacco use, peripheral arterial disease, Afib on coumadin, status post left foot transmetatarsal amputation; admitted on 11/16/2018 due to bloody stools for 24 hour. -During this hospital stay the patient underwent COLONOSCOPY- 6-10 mm polyp x 2 transverse (hot snare), EGD was benign -INR was over 10 and subsequently improved. There is no clear documentation of the patient received FFP. -INR now corrected and GI recommends that it can be re-iniatied. Left LE CT: There is skin defect in the medial soft tissues of the distal left thigh. No organized abscess is seen. There is circumferential subcutaneous edema bilaterally. Peripheral arterial disease bilaterally. Hospitalist Physical General Apperance: The patient lying in bed, breathing comfortable HEENT: Normocephalic, atraumatic. Pupils equally round and reactive to light, EOMI, no sclericterus or JVD or thyromegaly or nodule. , no carotid bruit, mucous membranes moist, no exudate or erythema Heart: S1-S2, regular is rhythm Lungs: Clear to auscultation bilaterally, breathing comfortable Abdomen: Positive bowel sounds, soft, nontender, nondistended, no organomegaly Extremities: Left lower extremity wound. No cyanosis clubbing, left transmetatarsal amputation. trace generalized edema Skin: multiple lesions on the skin. thigh wound on the left, stitches still in place Neuro: cranial nerves 2-12 intact, speech is fluent, motor/sensory intact Subjective Date of service: 11/30/18 Principal diagnosis: GI bleed Interval history: Patient seen and examined no acute issue discharge pending on placement patient is unable to take care of himself Objective - Constitutional Vitals: Vital Signs - 12hr 11/30/18 11/30/18 11/30/18 05:01 09:51 11:19 Temperature 97.6 F 97.9 F Pulse Rate 60 70 Pulse Rate [ Throughout] Respiratory 20 22 Rate Respiratory Rate [ Throughout] Blood Pressure 126/66 132/63 132/61 O2 Sat by Pulse 94 73 L Oximetry 11/30/18 11/30/18 11/30/18 11:20 11:38 12:00 Temperature Pulse Rate 91 H Pulse Rate [ 80 78 Throughout] Respiratory Rate Respiratory 18 18 Rate [ Throughout] Blood Pressure O2 Sat by Pulse 95 93 Oximetry - Labs CBC & Chem 7: 11/29/18 19:50 11/28/18 05:30 Labs: Abnormal lab results 11/29/18 11/29/18 11/29/18 Range/Units 12:23 17:39 19:50 Hgb 7.0 L (11.8-15.2) gm/dl Hct 22.4 L (35.5-45.6) % PT (12.2-14.9) Sec. INR (0.87-1.13) POC Glucose 222 H 231 H (70-105) 11/29/18 11/30/18 11/30/18 Range/Units 21:32 06:45 07:57 Hgb (11.8-15.2) gm/dl Hct (35.5-45.6) % PT 28.1 H (12.2-14.9) Sec. INR 2.43 H (0.87-1.13) POC Glucose 199 H 139 H (70-105) 11/30/18 Range/Units 11:21 Hgb (11.8-15.2) gm/dl Hct (35.5-45.6) % PT (12.2-14.9) Sec. INR (0.87-1.13) POC Glucose 219 H (70-105)
[2018-11-30] MEDS: VANCOMYCIN 1,500 MG in NACL 0.9% 500 ML 500 ML IV SCH (15:02)
[2018-11-30] MEDS: COUMADIN PO SCH (17:13)
[2018-11-30] MEDS: LANOXIN PO SCH (17:14)
[2018-11-30] MEDS: LANTUS SUB-Q SCH (23:20)
[2018-12-01] MEDS: DILAUDID IV PRN ×5 (01:02→21:15)
[2018-12-01] MEDS: SODIUM CHLORIDE FLUSH SYRINGE 10 ML IV PRN (04:56)
[2018-12-01] MEDS: MAXIPIME/NS 2 GM/100 ML 2 GM/100 ML BAG IV SCH ×4 (07:40→21:14)
[2018-12-01 08:15] LABS: INR 2.06 (0.87-1.13)
[2018-12-01] MEDS: NEURONTIN PO SCH ×3 (08:20→21:16)
[2018-12-01] MEDS: HumaLOG SUB-Q SCH ×4 (08:20→21:17)
[2018-12-01] MEDS: BROVANA NEBU IH SCH ×3 (08:41→20:23)
[2018-12-01] MEDS: SPIRIVA IH SCH ×2 (08:41→22:01)
[2018-12-01] MEDS: PULMICORT IH SCH ×2 (08:41→20:23)
[2018-12-01] MEDS: HALFPRIN EC PO SCH (10:11)
[2018-12-01] MEDS: PLAVIX PO SCH (10:11)
[2018-12-01] MEDS: PROTONIX PO SCH (10:12)
[2018-12-01] MEDS: CARDIZEM CD PO SCH (10:12)
[2018-12-01] MEDS: LASIX PO SCH (10:12)
[2018-12-01] MEDS: SODIUM CHLORIDE FLUSH SYRINGE 10 ML IV SCH ×2 (10:12→21:18)
[2018-12-01] MEDS: NORCO 5/325 PO PRN ×2 (11:50→18:14)
[2018-12-01] MEDS: VANCOMYCIN 1,500 MG in NACL 0.9% 500 ML 500 ML IV SCH (14:07)
--- NOTE | 2018-12-01 14:24 | Progress Note ---
Assessment and Plan GI bleed, melena, s/p EGD and colonoscopy w/o sign of active bleeding - likely from supratherapeutic INR' (10.8 on admission), resolved Acute Blood loss anemia, Hb 5.8 on admission s/p 3 unit PRBC transfusion, h/h stable now Coumadin toxicity No evidence of overdose. 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 -During this hospital stay the patient underwent COLONOSCOPY- 6-10 mm polyp x 2 transverse (hot snare), EGD was benign -INR was over 10 and subsequently improved. There is no clear documentation of the patient received FFP. -INR now corrected and GI recommends that it can be re-iniatied. Left LE CT: There is skin defect in the medial soft tissues of the distal left thigh. No organized abscess is seen. There is circumferential subcutaneous edema bilaterally. Peripheral arterial disease bilaterally. Hospitalist Physical General Apperance: The patient lying in bed, breathing comfortable HEENT: Normocephalic, atraumatic. Pupils equally round and reactive to light, EOMI, no sclericterus or JVD or thyromegaly or nodule. , no carotid bruit, mucous membranes moist, no exudate or erythema Heart: S1-S2, regular is rhythm Lungs: Clear to auscultation bilaterally, breathing comfortable Abdomen: Positive bowel sounds, soft, nontender, nondistended, no organomegaly Extremities: Left lower extremity wound. No cyanosis clubbing, left transmetatarsal amputation. trace generalized edema Skin: multiple lesions on the skin. thigh wound on the left, stitches still in place Neuro: cranial nerves 2-12 intact, speech is fluent, motor/sensory intact Subjective Date of service: 12/01/18 Principal diagnosis: GI bleed Interval history: Patient seen and examined no acute issue discharge pending on placement patient is unable to take care of himself and family also cannot provide care Objective - Constitutional Vitals: Vital Signs - 12hr 12/01/18 12/01/18 12/01/18 02:32 04:16 05:09 Temperature 97.3 F L Pulse Rate 66 72 Pulse Rate [ Anterior Bilateral Throughout] Respiratory 18 18 Rate Respiratory Rate [Anterior Bilateral Throughout] Blood Pressure 140/73 O2 Sat by Pulse 93 95 Oximetry 12/01/18 12/01/18 12/01/18 08:41 08:46 08:47 Temperature Pulse Rate Pulse Rate [ 77 67 73 Anterior Bilateral Throughout] Respiratory Rate Respiratory 20 20 20 Rate [Anterior Bilateral Throughout] Blood Pressure O2 Sat by Pulse 94 Oximetry 12/01/18 12/01/18 12/01/18 08:57 09:00 10:12 Temperature Pulse Rate 70 Pulse Rate [ 75 Anterior Bilateral Throughout] Respiratory 18 Rate Respiratory 20 Rate [Anterior Bilateral Throughout] Blood Pressure 139/68 O2 Sat by Pulse Oximetry 12/01/18 12:00 Temperature 97.8 F Pulse Rate 67 Pulse Rate [ Anterior Bilateral Throughout] Respiratory 20 Rate Respiratory Rate [Anterior Bilateral Throughout] Blood Pressure 131/73 O2 Sat by Pulse 100 Oximetry - Labs CBC & Chem 7: 11/29/18 19:50 11/28/18 05:30 Labs: Abnormal lab results 11/30/18 11/30/18 12/01/18 Range/Units 16:51 20:46 07:28 PT 24.6 H (12.2-14.9) Sec. INR 2.06 H (0.87-1.13) POC Glucose 200 H 250 H (70-105) 12/01/18 12/01/18 Range/Units 07:39 12:03 PT (12.2-14.9) Sec. INR (0.87-1.13) POC Glucose 153 H 217 H (70-105)
[2018-12-01] MEDS: LANOXIN PO SCH (16:55)
[2018-12-01] MEDS ORDERED: COUMADIN PO SCH (17:00)
[2018-12-01] MEDS: LANTUS SUB-Q SCH (21:15)
[2018-12-02] MEDS: NORCO 5/325 PO PRN ×3 (02:02→21:59)
[2018-12-02] MEDS: DILAUDID IV PRN ×3 (06:05→18:10)
[2018-12-02] MEDS: MAXIPIME/NS 2 GM/100 ML 2 GM/100 ML BAG IV SCH ×3 (06:06→21:09)
[2018-12-02 07:09] LABS: INR 2.61 (0.87-1.13)
[2018-12-02] MEDS: BROVANA NEBU IH SCH ×2 (07:30→20:22)
[2018-12-02] MEDS: PULMICORT IH SCH ×2 (07:30→20:22)
[2018-12-02] MEDS: SPIRIVA IH SCH ×2 (07:55→08:00)
[2018-12-02] MEDS: HumaLOG SUB-Q SCH ×4 (08:37→22:06)
[2018-12-02] MEDS: NEURONTIN PO SCH ×3 (08:51→21:08)
[2018-12-02] MEDS: HALFPRIN EC PO SCH (09:42)
[2018-12-02] MEDS: PLAVIX PO SCH (09:42)
[2018-12-02] MEDS: LASIX PO SCH (09:42)
[2018-12-02] MEDS: PROTONIX PO SCH (09:42)
[2018-12-02] MEDS: SODIUM CHLORIDE FLUSH SYRINGE 10 ML IV SCH ×2 (09:43→21:09)
[2018-12-02] MEDS: CARDIZEM CD PO SCH (09:43)
--- NOTE | 2018-12-02 13:01 | Progress Note ---
Assessment and Plan GI bleed, melena, s/p EGD and colonoscopy w/o sign of active bleeding - likely from supratherapeutic INR' (10.8 on admission), resolved Acute Blood loss anemia, Hb 5.8 on admission s/p 3 unit PRBC transfusion, h/h stable now Coumadin toxicity No evidence of overdose. 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 -During this hospital stay the patient underwent COLONOSCOPY- 6-10 mm polyp x 2 transverse (hot snare), EGD was benign -INR was over 10 and subsequently improved. There is no clear documentation of the patient received FFP. -INR now corrected and GI recommends that it can be re-iniatied. Left LE CT: There is skin defect in the medial soft tissues of the distal left thigh. No organized abscess is seen. There is circumferential subcutaneous edema bilaterally. Peripheral arterial disease bilaterally. Hospitalist Physical General Apperance: The patient lying in bed, breathing comfortable HEENT: Normocephalic, atraumatic. Pupils equally round and reactive to light, EOMI, no sclericterus or JVD or thyromegaly or nodule. , no carotid bruit, mucous membranes moist, no exudate or erythema Heart: S1-S2, regular is rhythm Lungs: Clear to auscultation bilaterally, breathing comfortable Abdomen: Positive bowel sounds, soft, nontender, nondistended, no organomegaly Extremities: Left lower extremity wound. No cyanosis clubbing, left transmetatarsal amputation. trace generalized edema Skin: multiple lesions on the skin. thigh wound on the left, stitches still in place Neuro: cranial nerves 2-12 intact, speech is fluent, motor/sensory intact Subjective Date of service: 12/02/18 Principal diagnosis: GI bleed Interval history: Patient seen and examined no acute issue discharge pending on placement patient is unable to take care of himself and family also cannot provide care Objective - Constitutional Vitals: Vital Signs - 12hr 12/02/18 12/02/18 12/02/18 05:17 07:32 07:33 Temperature 98.0 F Pulse Rate 62 Pulse Rate [ 74 Throughout] Respiratory 18 Rate Respiratory 18 Rate [ Throughout] Blood Pressure 136/72 O2 Sat by Pulse 99 95 Oximetry 12/02/18 12/02/18 07:38 09:43 Temperature Pulse Rate 62 Pulse Rate [ 75 Throughout] Respiratory Rate Respiratory 18 Rate [ Throughout] Blood Pressure 136/72 O2 Sat by Pulse Oximetry - Labs CBC & Chem 7: 11/29/18 19:50 11/28/18 05:30 Labs: Abnormal lab results 12/01/18 12/01/18 12/02/18 Range/Units 16:35 20:55 06:00 PT 29.7 H (12.2-14.9) Sec. INR 2.61 H (0.87-1.13) POC Glucose 160 H 212 H (70-105) 12/02/18 Range/Units 08:07 PT (12.2-14.9) Sec. INR (0.87-1.13) POC Glucose 129 H (70-105)
[2018-12-02] MEDS: VANCOMYCIN 1,500 MG in NACL 0.9% 500 ML 500 ML IV SCH (15:52)
[2018-12-02] MEDS ORDERED: COUMADIN PO SCH (17:00)
[2018-12-02] MEDS: LANOXIN PO SCH (18:08)
[2018-12-02] MEDS: LANTUS SUB-Q SCH (22:00)
[2018-12-03] MEDS: DILAUDID IV PRN ×3 (01:19→21:44)
[2018-12-03] MEDS: SODIUM CHLORIDE FLUSH SYRINGE 10 ML IV PRN (01:21)
[2018-12-03] MEDS: NORCO 5/325 PO PRN ×3 (04:15→18:51)
[2018-12-03] MEDS: MAXIPIME/NS 2 GM/100 ML 2 GM/100 ML BAG IV SCH ×3 (05:59→21:12)
[2018-12-03 07:12] LABS: INR 3.41 (0.87-1.13)
[2018-12-03] MEDS: BROVANA NEBU IH SCH ×2 (08:05→19:07)
[2018-12-03] MEDS: PULMICORT IH SCH ×2 (08:05→19:07)
[2018-12-03] MEDS: SPIRIVA IH SCH (08:11)
[2018-12-03] MEDS: HumaLOG SUB-Q SCH ×4 (09:33→22:00)
--- NOTE | 2018-12-03 09:37 | Progress Note ---
Assessment and Plan GI bleed, melena, s/p EGD and colonoscopy w/o sign of active bleeding - likely from supratherapeutic INR' (10.8 on admission), resolved Acute Blood loss anemia, Hb 5.8 on admission s/p 3 unit PRBC transfusion, h/h stable now at ~7.0 will transfuse one more unit PRBC before discharge Coumadin toxicity No evidence of overdose. 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 -During this hospital stay the patient underwent COLONOSCOPY- 6-10 mm polyp x 2 transverse (hot snare), EGD was benign -INR was over 10 and subsequently improved. There is no clear documentation of the patient received FFP. -INR now corrected and GI recommends that it can be re-iniatied. Left LE CT: There is skin defect in the medial soft tissues of the distal left thigh. No organized abscess is seen. There is circumferential subcutaneous edema bilaterally. Peripheral arterial disease bilaterally. Hospitalist Physical General Apperance: The patient lying in bed, breathing comfortable HEENT: Normocephalic, atraumatic. Pupils equally round and reactive to light, EOMI, no sclericterus or JVD or thyromegaly or nodule. , no carotid bruit, mucous membranes moist, no exudate or erythema Heart: S1-S2, regular is rhythm Lungs: Clear to auscultation bilaterally, breathing comfortable Abdomen: Positive bowel sounds, soft, nontender, nondistended, no organomegaly Extremities: Left lower extremity wound. No cyanosis clubbing, left transmetatarsal amputation. trace generalized edema Skin: multiple lesions on the skin. thigh wound on the left, stitches still in place Neuro: cranial nerves 2-12 intact, speech is fluent, motor/sensory intact Subjective Date of service: 12/03/18 Principal diagnosis: GI bleed Interval history: Patient seen and examined no acute issue discharge pending on placement patient is unable to take care of himself and family also cannot provide care Objective - Constitutional Vitals: Vital Signs - 12hr 12/02/18 12/03/18 12/03/18 22:11 01:49 05:11 Temperature 97.9 F 97.9 F Pulse Rate 65 81 Pulse Rate [ Anterior Bilateral Throughout] Respiratory 22 20 20 Rate Respiratory Rate [Anterior Bilateral Throughout] Blood Pressure 137/79 135/74 O2 Sat by Pulse 92 72 L Oximetry 12/03/18 12/03/18 12/03/18 08:05 08:08 08:12 Temperature Pulse Rate Pulse Rate [ 63 72 Anterior Bilateral Throughout] Respiratory Rate Respiratory 15 16 Rate [Anterior Bilateral Throughout] Blood Pressure O2 Sat by Pulse 91 Oximetry - Labs CBC & Chem 7: 12/03/18 10:35 12/03/18 10:35 Labs: Abnormal lab results 12/02/18 12/02/18 12/02/18 Range/Units 12:24 16:39 22:01 PT (12.2-14.9) Sec. INR (0.87-1.13) POC Glucose 264 H 244 H 148 H (70-105) 12/03/18 Range/Units 06:00 PT 36.8 H (12.2-14.9) Sec. INR 3.41 H (0.87-1.13) POC Glucose (70-105)
[2018-12-03] MEDS: PLAVIX PO SCH (10:13)
[2018-12-03] MEDS: PROTONIX PO SCH (10:13)
[2018-12-03] MEDS: SODIUM CHLORIDE FLUSH SYRINGE 10 ML IV SCH ×2 (10:14→21:13)
[2018-12-03] MEDS: LASIX PO SCH (10:14)
[2018-12-03] MEDS: NEURONTIN PO SCH ×3 (10:14→21:12)
[2018-12-03] MEDS: CARDIZEM CD PO SCH (10:14)
[2018-12-03 11:04] LABS: Hematocrit 22.6 % (35.5-45.6); Hemoglobin 6.9 gm/dl (11.8-15.2); Mean Corpuscular HGB Conc 31 % (32-34); Mean Corpuscular Volume 83 fl (84-94); Platelet Count 243 K/mm3 (140-440); Red Blood Count 2.71 M/mm3 (3.65-5.03); Red Cell Distribution Width 19.7 % (13.2-15.2)
[2018-12-03 11:20] LABS: BUN/Creatinine Ratio 31; Blood Urea Nitrogen 25 mg/dL (9-20); Calcium 8.3 mg/dL (8.4-10.2); Hemolysis Index 0
[2018-12-03] MEDS: VANCOMYCIN 1,500 MG in NACL 0.9% 500 ML 500 ML IV SCH (14:42)
[2018-12-03] MEDS: LANOXIN PO SCH (18:52)
[2018-12-03] MEDS: LANTUS SUB-Q SCH (22:00)
[2018-12-04] MEDS: DILAUDID IV PRN ×3 (04:59→13:05)
[2018-12-04] MEDS: MAXIPIME/NS 2 GM/100 ML 2 GM/100 ML BAG IV SCH ×2 (05:00→13:00)
[2018-12-04] MEDS: SODIUM CHLORIDE FLUSH SYRINGE 10 ML IV PRN (05:00)
[2018-12-04 06:00] LABS: INR 2.71 (0.87-1.13)
[2018-12-04] MEDS: NEURONTIN PO SCH ×2 (08:05→13:07)
[2018-12-04] MEDS: BROVANA NEBU IH SCH ×2 (08:10→19:55)
[2018-12-04] MEDS: PULMICORT IH SCH ×2 (08:10→19:55)
[2018-12-04] MEDS: SPIRIVA IH SCH (08:10)
[2018-12-04] MEDS: HumaLOG SUB-Q SCH ×3 (08:17→17:15)
[2018-12-04] MEDS: PROTONIX PO SCH (09:08)
[2018-12-04] MEDS: CARDIZEM CD PO SCH (09:08)
[2018-12-04] MEDS: LASIX PO SCH (09:08)
[2018-12-04] MEDS: SODIUM CHLORIDE FLUSH SYRINGE 10 ML IV SCH (09:08)
[2018-12-04] MEDS: PLAVIX PO SCH (09:08)
[2018-12-04] MEDS ORDERED: NACL 0.9% 500 ML 500 ML IV NR (10:46)
--- NOTE | 2018-12-04 10:58 | Discharge Summary ---
Providers - Providers Date of Admission: 11/16/18 21:43 Date of discharge: 12/04/18 Attending physician: KAELA IQBAL 11/16/18 18:15 Consult to Physician [CONS] Routine Comment: Consulting Provider: MARVIN STEEL Physician Instructions: Reason For Exam: gi bleed 11/17/18 00:20 Consult to Wound/ET Nurse [CONS] Routine Reason For Exam: wound eval 11/17/18 16:43 Consult to Physician [CONS] Routine Comment: Consulting Provider: GERARDO LOWRY Physician Instructions: Reason For Exam: limb ischemia 11/18/18 15:41 Consult to Wound/ET Nurse [CONS] Stat Reason For Exam: wound eval. Wound vac broken. wet todry applied. 11/19/18 10:03 Occupational Therapy Evaluate and Treat [CONS] Routine Comment: Reason For Exam: ataxia Physical Therapy Evaluation and Treat [CONS] Routine Comment: Reason For Exam: ataxia 11/20/18 11:31 Consult to Physician [CONS] Routine Comment: Consulting Provider: GRISELDA FELICIANO Physician Instructions: Reason For Exam: suspect infected left thigh vascular wound 11/20/18 11:37 Consult to Physician [CONS] Routine Comment: Consulting Provider: REBECA JUAREZ Physician Instructions: Reason For Exam: left thigh wound ?infected needing debridment 11/20/18 13:08 Consult to Dietitian/Nutrition [CONS] Routine Physician Instructions: Reason For Exam: poorly controlled DM, nonhealing wounds Reason for Consult: Malnutrition 11/20/18 13:12 Consult to Case Management [CONS] Routine Services Needed at Discharge: Location Director Notified:: Comment:: [facility] to [facility] Additional Physician Instructions: unable to care for wounds or follow up for outpatient visits. forgetful and poor historian 11/23/18 16:07 Consult to Case Management [CONS] Urgent Services Needed at Discharge: Other Wound Vac Notified:: no Additional Physician Instructions: [facility] M [phone] O [phone] F [phone] OUTPATIENT PARENTERAL ANTIBIOTIC THERAPY ORDERS Diagnoses: Antimicrobial administration: - anticipate discharge on Cefepime 2gms IV every 12 hours and Vancomycin 1,500 mg IV every 12 hours for total 2 weeks ending 12/04/18. Remove MIDLINE after last dose unless otherwise instructed. Lines: MIDLINE Lab monitoring: CBC, BUN, Creatinine, ALT, AST, CK, CRP vancomycin trough once a week preferly on Tuesday morning. Please fax results to [phone] and call [phone] for critical lab results. Ana Watts NP/Griselda Laura MD Date: 11/23/18 11/23/18 16:11 Midline [Consult to PICC Line RN] [CONS] Urgent Reason For Exam: OPAT Type Line:: Midline 11/24/18 14:02 Consult to PICC Line RN [CONS] Routine Reason For Exam: iv vanco Type Line:: PICC [facility] Condition: Stable Pertinent studies: Left LE CT: There is skin defect in the medial soft tissues of the distal left thigh. No organized abscess is seen. There is circumferential subcutaneous edema bilaterally. Peripheral arterial disease bilaterally. Hospital course: Brief History 58 y/o male with diabetes, hypertension, history of left leg DVT, arthritis, COPD, pulmonary hypertension, active tobacco use, peripheral arterial disease, Afib on coumadin, status post left foot transmetatarsal amputation; admitted on 11/16/2018 due to bloody stools for 24 hour. -During this hospital stay the patient underwent COLONOSCOPY- 6-10 mm polyp x 2 transverse (hot snare), EGD was benign -INR was over 10 and subsequently improved. There is no clear documentation of the patient received FFP. -INR now corrected and GI recommends that it can be re-iniatied and so was resumed - s/p bedside debridement of left thigh wound by GS on 11/22/18, ID recommended to continue Cefepime 2gms IV every 12 hours and Vancomycin 1,500mg IV every 12 hours for total 2 weeks ending 12/04/18 - he was discharged to SNF with wound vac in stable condition. Discharge diagnosis: GI bleed, melena, s/p EGD and colonoscopy w/o sign of active bleeding - likely from supratherapeutic INR' (10.8 on admission), resolved Acute Blood loss anemia, Hb 5.8 on admission s/p 4 units PRBC transfusion, h/h stable now before discharge Coumadin toxicity No evidence of overdose. 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 Pupils equally round and reactive to light, EOMI, no sclericterus or JVD or thyromegaly or nodule. , no carotid bruit, mucous membranes moist, no exudate or erythema Heart: S1-S2, regular is rhythm Lungs: Clear to auscultation bilaterally, breathing comfortable Abdomen: Positive bowel sounds, soft, nontender, nondistended, no organomegaly Extremities: Left lower extremity wound. No cyanosis clubbing, left tra nsmetatarsal amputation. trace generalized edema Skin: multiple lesions on the skin. thigh wound on the left with wound vac, no rash Neuro: cranial nerves 2-12 intact, speech is fluent, motor/sensory intact Disposition: DC/[place]-03 [facility]F [facility] Time spent for discharge: 34 minutes Core Measure Documentation - Palliative Care Palliative Care/ Comfort Measures: Not Applicable - Core Measures Any of the following diagnoses?: history only Exam - Constitutional Vitals: Temp Pulse Resp BP Pulse Ox 98.4 F 59 L 20 130/67 94 12/04/18 04:34 12/04/18 09:08 12/04/18 08:20 12/04/18 09:08 12/04/18 08:10 Plan Activity: fall precautions Diet: diabetic Wound: per wound nurse instructions Special Instructions: record daily weights, record blood sugar diary Follow up with: CODY MUNSON MD [Staff Physician] - 7 Days GERARDO LOWRY MD [Staff Physician] - 7 Days NIDA MCLEOD MD [Staff Physician] - [facility] - [facility]-5 Days Forms: Accompanied Note, Warfarin Discharge Instruction Prescriptions: HYDROcodone/APAP 10-325 [[place] 10-325 mg TAB] 1 each PO Q6H PRN #10 tablet PRN Reason: Pain, Moderate (4-6)
[2018-12-04] MEDS: VANCOMYCIN 1,500 MG in NACL 0.9% 500 ML 500 ML IV SCH (13:09)
[2018-12-04 16:11] LABS: Hematocrit 22.6 % (35.5-45.6)
[2018-12-04] MEDS ORDERED: COUMADIN PO SCH ×3 (17:00)
[2018-12-04] MEDS: NORCO 5/325 PO PRN (17:09)
[2018-12-04] MEDS: LANOXIN PO SCH (17:10)
[2018-12-04 21:19] VITALS: BP 123/63
[2018-12-04 21:25] LABS: Hematocrit 24.6 % (35.5-45.6); Hemoglobin 7.7 gm/dl (11.8-15.2)
== END 2018-12-04 21:44 | DRG 356 ==
LOC: ED 16:30 → IMCU 21:43 → 4A 11-17 13:25 → 3A 11-18 16:25
PROVIDERS: ADMIT Internal Medicine; ATTEND Internal Medicine
PROC: 30233N1 Transfusion of Nonautologous Red Blood Cells into Peripheral Vein, Percutaneous Approach (ICD-10-PCS; 2018-11-16)
PROC: 0DBL8ZZ Excision of Transverse Colon, Via Natural or Artificial Opening Endoscopic (ICD-10-PCS; 2018-11-18)
PROC: 0DJ08ZZ Inspection of Upper Intestinal Tract, Via Natural or Artificial Opening Endoscopic (ICD-10-PCS; 2018-11-18)
PROC: 0JBQ0ZZ Excision of Right Foot Subcutaneous Tissue and Fascia, Open Approach (ICD-10-PCS; principal; 2018-11-21)
PROC: 0JBM0ZZ Excision of Left Upper Leg Subcutaneous Tissue and Fascia, Open Approach (ICD-10-PCS; 2018-11-21)
PROC: 02HV33Z Insertion of Infusion Device into Superior Vena Cava, Percutaneous Approach (ICD-10-PCS; 2018-11-25)
DX: K57.31 Diverticulosis of large intestine without perforation or abscess with bleeding (principal); E43 Unspecified severe protein-calorie malnutrition; K29.71 Gastritis, unspecified, with bleeding; D62 Acute posthemorrhagic anemia; R65.10 Systemic inflammatory response syndrome (SIRS) of non-infectious origin without acute organ dysfunction; L03.115 Cellulitis of right lower limb; T45.515A Adverse effect of anticoagulants, initial encounter; E66.01 Morbid (severe) obesity due to excess calories; B95.62 Methicillin resistant Staphylococcus aureus infection as the cause of diseases classified elsewhere; I27.20 Pulmonary hypertension, unspecified; L03.116 Cellulitis of left lower limb; F17.210 Nicotine dependence, cigarettes, uncomplicated; K64.8 Other hemorrhoids; K63.5 Polyp of colon; I50.9 Heart failure, unspecified; I48.0 Paroxysmal atrial fibrillation; R79.1 Abnormal coagulation profile; K44.9 Diaphragmatic hernia without obstruction or gangrene; E78.00 Pure hypercholesterolemia, unspecified; I11.0 Hypertensive heart disease with heart failure; E11.51 Type 2 diabetes mellitus with diabetic peripheral angiopathy without gangrene; Z68.39 Body mass index [BMI] 39.0-39.9, adult; Z79.01 Long term (current) use of anticoagulants; Z90.49 Acquired absence of other specified parts of digestive tract; Z82.49 Family history of ischemic heart disease and other diseases of the circulatory system; Z88.8 Allergy status to other drugs, medicaments and biological substances; Z79.51 Long term (current) use of inhaled steroids; Z79.899 Other long term (current) drug therapy; Y92.89 Other specified places as the place of occurrence of the external cause; Z89.512 Acquired absence of left leg below knee; Z86.718 Personal history of other venous thrombosis and embolism; Z95.820 Peripheral vascular angioplasty status with implants and grafts; Z79.84 Long term (current) use of oral hypoglycemic drugs; Z71.3 Dietary counseling and surveillance
CPT/HCPCS: 36415; 71045; 80048; 80053; 80202; 82962; 85007; 85014; 85018; 85025; 85027; 85610; 85730; 86140; 86850; 86900; 86901; 86920; 88305; 93005; 93010; 94640; 94760; 96372; G0378; A6260; A9270-GY; C9113; J0692; J1170; J1815; J1940; J2704; J2997; J3370; J3430; J7030; J7040; J7050; P9016; P9017; Q9967